=== PATIENT | female | born 1980 | race Hispanic/Latino ===

== ENCOUNTER 2020-11-29 06:34 | Inpatient (IN) | payer OTHER ==
[2020-11-29] MEDS ORDERED: EPINEPHrine RACEMIC 2.25% 0.5ML NEBU IH ONE ×2 (06:39→07:25)
[2020-11-29] MEDS ORDERED: dexAMETHasone 20 MG/5 ML VIAL IV ONE (07:01)
[2020-11-29] MEDS ORDERED: propofoL 200 MG/20 ML VIAL IV ONE (07:11)
[2020-11-29] MEDS ORDERED: diphenhydrAMINE 50 MG/ML VIAL IV ONE (07:24)
[2020-11-29] MEDS ORDERED: KETAMINE 500 MG/5 ML VIAL MDV IV ONE (07:24)
[2020-11-29] MEDS ORDERED: MAGNESIUM SULFATE 2 GM/50 ML BAG IV ONE (07:25)
[2020-11-29] MEDS ORDERED: SODIUM CHLORIDE 0.9% 1000 ML 1,000 ML IV ONE (07:50)
[2020-11-29] MEDS ORDERED: SODIUM CHLORIDE 0.9% 1000 ML 1,000 ML ONE (07:50)
[2020-11-29] MEDS ORDERED: EPINEPHrine/PF 1 MG/1 ML INJ SUB-Q ONE ×2 (07:57)
--- NOTE | 2020-11-29 07:57 | Emergency Department Report ---
ED Allergic Reaction HPI - General Chief complaint: Allergic Reaction Stated complaint: RESP DISTRESS Time Seen by Provider: 11/29/20 06:38 Source: patient Mode of arrival: Stretcher Limitations: No Limitations - History of Present Illness Initial Comments: 39-year-old female presents to ED with allergic reaction. Patient presents in respiratory distress. Patient apparently arrived by private vehicle. Patient has information in her phone stating that she history of allergic reactions to bee stings, tick bites, red meat, and heparin. It is also noted that she has had over "40+ intubations" and also has undergone tracheostomy, with reversal, for allergic reactions. ET tube of 6.5 or 6.0 will work. Patient has paradoxical vocal cord movement, severe tracheal stenosis, idiopathic hereditary angioedema and urticaria, and alpha gal syndrome. Notes in patient's phone state that IV Benadryl, ketamine, Decadron works for spasms and stridor. It states, "I AM VERY HARD TO PUT DOWN DUE TO ALL THE INTUBATION SO MORE IS BETTER I PROMISE." Patient reports she used her EpiPen prior to ED arrival. Patient is stridorous at this time. Patient is able to give information by writing it down. MD Complaint: allergic reaction -: This morning Exposure: unknown, food Symptoms: difficulty breathing Severity: severe Treatment Prior to Arrival: epinephrine Previous Allergy History: angioedema, intubation - Related Data Home Medications Medication Instructions Recorded Confirmed Last Taken Gabapentin 600 mg PO BID 09/24/16 09/24/16 09/22/16 22:00 ALPRAZolam [Xanax TAB] 1 mg PO PRN PRN 09/25/16 09/25/16 Unknown Ambien 10 mg PO HS 09/25/16 09/25/16 Unknown Doxepin 75 mg PO BID 09/25/16 09/25/16 Unknown Hydrochlorothiazide 25 mg PO DAILY 09/25/16 09/25/16 Unknown Montelukast [Singulair] 10 mg PO HS 09/25/16 09/25/16 Unknown Previous Rx's Medication Instructions Recorded Last Taken Type EPINEPHrine [Epipen 2-Sam] 0.3 mg IJ ONCE #1 auto.injct 03/12/16 09/14/16 Rx 0.3mg Allergies Allergy/AdvReac Type Severity Reaction Status Date / Time ciprofloxacin Allergy Unknown Verified 03/12/16 14:14 gelatin Allergy Unknown Verified 03/12/16 14:14 levofloxacin [From Levaquin] Allergy Unknown Verified 03/12/16 14:14 Pork/Porcine Containing Allergy Unknown Verified 03/12/16 14:14 Products ED Review of Systems ROS: Stated complaint: RESP DISTRESS Other details as noted in HPI Respiratory: shortness of breath, stridor ED Past Medical Hx - Past Medical History Hx Hypertension: Yes Hx Congestive Heart Failure: No Hx Diabetes: No Hx Headaches / Migraines: Yes Hx Asthma: Yes Hx COPD: No Additional medical history: Alphagal syndrome, intubation, trach - Surgical History Additional Surgical History: hysterectomy - Social History Smoking Status: Never Smoker - Medications Home Medications: Home Medications Medication Instructions Recorded Confirmed Last Taken Type EPINEPHrine [Epipen 2-Sam] 0.3 mg IJ ONCE #1 auto.injct 03/12/16 09/24/16 09/14/16 Rx 0.3mg Gabapentin 600 mg PO BID 09/24/16 09/24/16 09/22/16 22:00 History ALPRAZolam [Xanax TAB] 1 mg PO PRN PRN 09/25/16 09/25/16 Unknown History Ambien 10 mg PO HS 09/25/16 09/25/16 Unknown History Doxepin 75 mg PO BID 09/25/16 09/25/16 Unknown History Hydrochlorothiazide 25 mg PO DAILY 09/25/16 09/25/16 Unknown History Montelukast [Singulair] 10 mg PO HS 09/25/16 09/25/16 Unknown History ED Physical Exam - General Limitations: No Limitations General appearance: alert, anxious, in distress, obese - Head Head exam: Present: atraumatic, normocephalic - Eye Eye exam: Present: normal appearance, EOMI - ENT ENT exam: Present: mucous membranes moist, other (tongue appears normal, no swelling present; no facial swelling present) - Neck Neck exam: Present: normal inspection - Respiratory Respiratory exam: Present: respiratory distress, stridor - Cardiovascular Cardiovascular Exam: Present: normal rhythm, tachycardia - GI/Abdominal GI/Abdominal exam: Present: soft. Absent: distended, tenderness - Extremities Exam Extremities exam: Present: normal inspection - Neurological Exam Neurological exam: Present: alert, oriented X3 - Psychiatric Psychiatric exam: Present: normal affect, normal mood - Skin Skin exam: Present: warm, dry, intact, normal color. Absent: rash, urticaria ED Course Vital Signs 11/29/20 11/29/20 11/29/20 06:35 07:37 08:00 Pulse Rate 90 Respiratory Rate Blood Pressure 153/134 O2 Sat by Pulse 98 100 98 Oximetry 11/29/20 11/29/20 11/29/20 08:02 08:10 08:20 Pulse Rate 83 83 84 Respiratory 26 H 25 H 24 Rate Blood Pressure 100/40 O2 Sat by Pulse 99 98 97 Oximetry 11/29/20 11/29/20 11/29/20 08:30 08:50 09:00 Pulse Rate 82 85 83 Respiratory 22 18 21 Rate Blood Pressure 107/38 103/46 O2 Sat by Pulse 97 98 98 Oximetry 11/29/20 11/29/20 11/29/20 09:10 09:20 09:30 Pulse Rate 81 80 79 Respiratory 21 20 20 Rate Blood Pressure 103/46 103/48 107/49 O2 Sat by Pulse 98 98 99 Oximetry 11/29/20 11/29/20 11/29/20 09:40 09:50 10:00 Pulse Rate 79 79 Respiratory 20 20 Rate Blood Pressure 107/49 114/53 114/53 O2 Sat by Pulse 99 99 100 Oximetry 11/29/20 11/29/20 11/29/20 10:10 10:20 10:31 Pulse Rate 134 H 123 H Respiratory 23 31 H Rate Blood Pressure 107/49 197/128 227/71 O2 Sat by Pulse 54 L 92 93 Oximetry - Reevaluation(s) Reevaluation #1: 11/29/20 07:56 Upon presentation, patient was given additional subcutaneous epi. Anesthesia was called for assistance. Port-A-Cath was accessed and patient was given Benadryl, Decadron, mag sulfate. Racemic epi nebulizer was administered. Upon Dr. Muhammad's arrival (anesthesiologist), patient was given multiple doses of ketamine. Patient remained very anxious, so she was given Versed. She was ultimately also given Precedex, which calmed the patient adequately enough for intubation. Patient was intubated by Dr Muhammad with a 6.0 ET tube. No swelling or edema seen on Glidescope during intubation. Reevaluation #2: 11/29/20 09:[address] León, hospitalist. Patient will be admitted to Dr. Garcia. Request that consult to rail project engineer, Dr Estrada, be placed by la. Dr. León states he will call Dr. Estrada. ED Medical Decision Making - Lab Data Result diagrams: 11/29/20 07:48 11/29/20 07:48 - Radiology Data Radiology results: report reviewed, image reviewed - Medical Decision Making 39-year-old female presents to ED with allergic reaction with associated severe respiratory distress with stridor. Patient intubated by anesthesiologist here in ED. Labs are unremarkable. Chest x-ray shows adequate tube placement with no airspace or interstitial disease present. Patient currently on propofol drip. She will be admitted by hospitalist, Dr. Garcia, for further management. - Differential Diagnosis Allergic reaction, angioedema, tracheal stenosis, anxiety Critical Care Time: Yes Critical care time in (mins) excluding proc time.: 35 Critical care attestation.: If time is entered above; I have spent that time in minutes in the direct care of this critically ill patient, excluding procedure time. Critical Care Time: 35 min ED Disposition Clinical Impression: Acute respiratory failure, Allergic reaction Disposition: ADMITTED INPATIENT Is pt being admited?: Yes Condition: Stable Time of Disposition: 09:22
[2020-11-29] MEDS ORDERED: MIDAZOLAM 5 MG/5 ML INJ MDV IV NR (08:00)
--- NOTE | 2020-11-29 08:16 | XRay Report ---
CHEST 1 VIEW INDICATION: post intubation; allergic reaction. COMPARISON: 09/26/2016 FINDINGS: Support devices: Endotracheal tube is in adequate position terminating 3 cm superior to the evelyne. R ight IJ [id number]-Iozc is unchanged terminating at the cavoatrial junction. Heart: Within normal limits. Lungs/Pleura: No acute air space or interstitial disease. Additional findings: None. IMPRESSION: No acute findings. Adequate endotracheal tube placement. Signer Name: Bird Cool Jr, MD Signed: 11/29/2020 8:12 AM Workstation Name: [id number]
[2020-11-29 08:48] LABS: Basophils # (Auto) 0.1 K/mm3 (0.0-0.1); Basophils % (Auto) 0.7 % (0.0-1.8); Eosinophils # (Auto) 0.4 K/mm3 (0.0-0.4); Eosinophils % (Auto) 3.7 % (0.0-4.3); Hematocrit 37.7 % (30.3-42.9); Hemoglobin 12.4 gm/dl (10.1-14.3); Lymphocytes # (Auto) 2.5 K/mm3 (1.2-5.4); Lymphocytes % (Auto) 21.9 % (13.4-35.0); Mean Corpuscular HGB Conc 33 % (30-34); Mean Corpuscular Volume 83 fl (79-97); Monocytes # (Auto) 0.5 K/mm3 (0.0-0.8); Monocytes % (Auto) 4.1 % (0.0-7.3); Platelet Count 190 K/mm3 (140-440); Red Blood Count 4.53 M/mm3 (3.65-5.03)
[2020-11-29 09:11] LABS: BUN/Creatinine Ratio 13; Blood Urea Nitrogen 10 mg/dL (7-17); Calcium 8.7 mg/dL (8.4-10.2); Hemolysis Index 6
[2020-11-29 09:16] LABS: Alanine Aminotransferase 33 units/L (7-56); Albumin 3.7 g/dL (3.9-5)
[2020-11-29 09:20] LABS: Bilirubin,Direct < 0.2 mg/dL (0-0.2)
--- NOTE | 2020-11-29 09:58 | History and Physical Report ---
History of Present Illness Date of examination: 11/29/20 Date of admission: 11/29/2020 Chief complaint: Allergic reaction/acute respiratory failure History of present illness: When I came to evaluate the patient patient is already intubated on ventilatory support and sedated No family member at the bedside, unable to obtain history, details obtained from the ER note 39-year-old female presents to ED with allergic reaction. Patient presents in respiratory distress. Patient has information in her phone stating that she history of allergic reactions to bee stings, takes, red meat, and heparin. Her father notes that she has had over 40+ intubations and also has undergone tracheostomy, with reversal, for allergic reactions. And father states that ET tube of 6.5 or 6.0 will work. 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 IV Benadryl, ketamine, Decadron works for spasms and stridor. Patient reports she used her EpiPen prior to ED arrival. Patient is stridorous at this time. Patient is able to give information by writing it down. Patient was known to be in hypoxic respiratory failure with stridor, and was promptly intubated and placed on ventilatory support Patient had mild hypotension, medications adjusted, placed on brief Trendelenburg position By the time of my evaluation patient is orally intubated on ventilatory support Mild hypotension No other history available x Hypertension: Yes Hx Congestive Heart Failure: No Hx Diabetes: No Hx Headaches / Migraines: Yes Hx Asthma: Yes Hx COPD: No Additional medical history: Alphagal syndrome, intubation, trach - Surgical History Additional Surgical History: hysterectomy Past History Past Medical History: hypertension, migraines, other (Anxiety disorder, peripheral neuropathy, alpha gal syndrome, hereditary angioedema) Past Surgical History: hysterectomy, Other (History of tracheostomy) Social history: denies: smoking, alcohol abuse, prescription drug abuse Family history: no significant family history Medications and Allergies Allergies Allergy/AdvReac Type Severity Reaction Status Date / Time ciprofloxacin Allergy Unknown Verified 03/12/16 14:14 gelatin Allergy Unknown Verified 03/12/16 14:14 levofloxacin [From Levaquin] Allergy Unknown Verified 03/12/16 14:14 Pork/Porcine Containing Allergy Unknown Verified 03/12/16 14:14 Products Home Medications Medication Instructions Recorded Confirmed Last Taken Type EPINEPHrine [Epipen 2-Sam] 0.3 mg IJ ONCE #1 auto.injct 03/12/16 09/24/16 09/14/16 Rx 0.3mg Gabapentin 600 mg PO BID 09/24/16 09/24/16 09/22/16 22:00 History ALPRAZolam [Xanax TAB] 1 mg PO PRN PRN 09/25/16 09/25/16 Unknown History Ambien 10 mg PO HS 09/25/16 09/25/16 Unknown History Doxepin 75 mg PO BID 09/25/16 09/25/16 Unknown History Hydrochlorothiazide 25 mg PO DAILY 09/25/16 09/25/16 Unknown History Montelukast [Singulair] 10 mg PO HS 09/25/16 09/25/16 Unknown History Active Meds: Active Medications Dexmedetomidine HCl 200 mcg/ (Sodium Chloride) 50 mls @ 0 mls/hr IV TITRATE KRYSTAL; Protocol Propofol (Diprivan 10 Mg/Ml) 1,000 mg in 100 mls @ 0 mls/hr IV TITR KRYSTAL; Protocol Midazolam HCl (Midazolam 5 Mg/5 Ml Inj Mdv) 5 mg IV ONCE NR Senna/Docusate Sodium (Sennosides/Docusate Sodium 8.6/50 Mg Tab) 1 tab FEEDTUBE BID KRYSTAL Review of Systems ROS unobtainable: due to endotracheal tube Exam - Constitutional Vitals: Temp Pulse Resp BP Pulse Ox 90 153/134 100 11/29/20 07:37 11/29/20 07:37 11/29/20 07:37 General appearance: Present: obese (Orbitally obese) - EENT Eyes: Present: PERRL - Neck Neck: Present: supple (EGD ET tube in place), normal ROM, other - Respiratory Respiratory effort: normal, labored Respiratory: bilateral: rales, wheezing, negative: rhonchi - Cardiovascular Rhythm: regular Heart Sounds: Present: S1 & S2 Details: S1-S2 regular No murmur - Extremities Extremities: no ischemia, No edema Extremity abnormal: edema - Abdominal General gastrointestinal: Present: soft, non-tender, non-distended - Integumentary Integumentary: Present: clear, warm - Musculoskeletal Musculoskeletal: other (Intubated on vent) - Psychiatric Psychiatric: other (Intubated on vent) - Neurologic Neurologic: other (Intubated on vent) Results - Labs CBC & Chem 7: 0831/21 07:48 11/29/20 07:48 Labs: Abnormal lab results 11/29/20 11/29/20 11/29/20 Range/Units 07:48 07:48 07:48 WBC 11.3 H (4.5-11.0) K/mm3 RDW 18.0 H (13.2-15.2) % Seg Neutrophils # 7.9 H (1.8-7.7) K/mm3 Sodium 135 L (137-145) mmol/L Glucose 204 H (65-100) mg/dL Albumin 3.7 L (3.9-5) g/dL Assessment and Plan - Patient Problems (1) Acute respiratory failure with hypoxemia Current Visit: No Status: Acute Plan to address problem: Patient is intubated on ventilatory support Pulmonary critical consulted, Supportive care Restraint for safety (2) Hereditary angioedema Current Visit: Yes Status: Chronic Plan to address problem: Patient had multiple intubations in the past Patient has multiple allergies as mentioned above Patient is intubated on ventilatory support Wean as tolerated and extubate Patient has EpiPen (3) Bronchial asthma Current Visit: Yes Status: Acute Plan to address problem: Patient is intubated on ventilatory support Nebulizers, IV steroids and supportive care (4) Allergic reaction Current Visit: Yes Status: Acute Plan to address problem: High-dose steroids, antihistamines, Pepcid avoid the allergens Patient has EpiPen, will follow allergy sign board erector upon discharge (5) Peripheral neuropathy Current Visit: Yes Status: Acute Plan to address problem: On gabapentin Resume gabapentin and supportive care (6) Morbid obesity with BMI of 45.0-49.9, adult Current Visit: Yes Status: Chronic Plan to address problem: Patient needs dietary modification exercise as tolerated. Reduction when medically stable (7) DVT prophylaxis Current Visit: No Status: Acute Plan to address problem: Subcu heparin (8) Discharge planning issues Current Visit: Yes Status: Acute Plan to address problem: Per case management We will closely monitor the patient and adjust management as needed Plan of care reviewed with the patient's nurse Critical care time 65 minutes The high probability of a clinically significant, sudden or life threatening deterioration of the [heme/pulm] system(s) required my full and direct attention, intervention and personal management. The aggregate critical care time was [30] minutes. This time is in addition to time spent performing reported procedures but includes the following: [x] Data Review and interpretation [x] Patient assessment and monitoring of vital signs [x] Documentation [x] Medication orders and management (9) Full code status Current Visit: Yes Status: Acute
[2020-11-29] MEDS ORDERED: fentaNYL 100 MCG/2 ML INJ IV PRN ×2 (10:22→12:00)
[2020-11-29] MEDS: fentaNYL DRIP Premix 2,000 MCG/100 ML BAG IV SCH ×4 (11:50→23:26)
[2020-11-29] MEDS ORDERED: fentaNYL DRIP Premix 2,000 MCG/100 ML BAG IV SCH (12:00)
[2020-11-29] MEDS ORDERED: diphenhydrAMINE 50 MG/ML VIAL IV PRN (12:30)
[2020-11-29] MEDS ORDERED: ALPRAZolam 1 MG TAB PO PRN (13:00)
[2020-11-29] MEDS: MIDAZOLAM 100 MG in SODIUM CHLORIDE 0.9% 80 ML IV SCH (14:00)
[2020-11-29] MEDS ORDERED: ALBUTEROL 2.5 MG/3 ML NEBU IH PRN (15:22)
[2020-11-29] MEDS ORDERED: SODIUM BICARBONATE 325 MG TAB FEEDTUBE PRN (15:23)
[2020-11-29] MEDS ORDERED: SIMPLE SYRUP 15 ML FEEDTUBE PRN ×2 (15:23)
[2020-11-29] MEDS ORDERED: LIPASE 10,500/PROTEASE 25,000/AMYLASE 43,750 (UNITS) DR CAP FEEDTUBE PRN (15:23)
[2020-11-29] MEDS: LORazepam 2 MG/ML VIAL IV PRN (15:50)
--- NOTE | 2020-11-29 15:52 | Progress Note ---
Subjective Date of service: 11/29/20 Principal diagnosis: Acute Hypoxemic Respiratory Failure; Angioedema Interval history: PULMONARY/CCM CONSULT NOTE (Full dictation # [id number]) Please see dictated notes for full details Objective Vital Signs - 12hr 11/29/20 11/29/20 11/29/20 06:35 07:37 08:00 Temperature 98.8 F Pulse Rate 90 Respiratory Rate Blood Pressure 153/134 O2 Sat by Pulse 98 100 98 Oximetry 11/29/20 11/29/20 11/29/20 08:02 08:10 08:20 Temperature Pulse Rate 83 83 84 Respiratory 26 H 25 H 24 Rate Blood Pressure 100/40 O2 Sat by Pulse 99 98 97 Oximetry 11/29/20 11/29/20 11/29/20 08:30 08:50 09:00 Temperature Pulse Rate 82 85 83 Respiratory 22 18 21 Rate Blood Pressure 107/38 103/46 O2 Sat by Pulse 97 98 98 Oximetry 11/29/20 11/29/20 11/29/20 09:10 09:20 09:30 Temperature Pulse Rate 81 80 79 Respiratory 21 20 20 Rate Blood Pressure 103/46 103/48 107/49 O2 Sat by Pulse 98 98 99 Oximetry 11/29/20 11/29/20 11/29/20 09:40 09:50 10:00 Temperature Pulse Rate 79 79 Respiratory 20 20 Rate Blood Pressure 107/49 114/53 114/53 O2 Sat by Pulse 99 99 100 Oximetry 11/29/20 11/29/20 11/29/20 10:10 10:20 10:31 Temperature Pulse Rate 134 H 123 H Respiratory 23 31 H Rate Blood Pressure 107/49 197/128 227/71 O2 Sat by Pulse 54 L 92 93 Oximetry 11/29/20 11/29/20 11/29/20 10:46 11:15 11:30 Temperature Pulse Rate 106 H 94 H 91 H Respiratory 29 H 26 H 26 H Rate Blood Pressure 113/58 85/27 84/34 O2 Sat by Pulse 94 97 98 Oximetry 11/29/20 11/29/20 11/29/20 11:46 12:00 12:16 Temperature Pulse Rate 92 H 86 71 Respiratory 25 H 24 24 Rate Blood Pressure 85/24 74/24 77/26 O2 Sat by Pulse 99 97 97 Oximetry 11/29/20 11/29/20 11/29/20 12:30 12:46 13:00 Temperature Pulse Rate 80 83 86 Respiratory 25 H 23 24 Rate Blood Pressure 93/42 95/32 100/35 O2 Sat by Pulse 96 99 100 Oximetry 11/29/20 11/29/20 11/29/20 13:16 13:30 13:46 Temperature Pulse Rate 88 89 94 H Respiratory 13 12 13 Rate Blood Pressure 98/40 100/43 107/54 O2 Sat by Pulse 98 99 99 Oximetry 11/29/20 11/29/20 11/29/20 14:00 14:16 14:30 Temperature Pulse Rate 93 H 95 H 96 H Respiratory 14 12 10 L Rate Blood Pressure 118/65 111/62 132/57 O2 Sat by Pulse 100 100 100 Oximetry 11/29/20 11/29/20 11/29/20 14:46 15:00 15:16 Temperature Pulse Rate 98 H 102 H 100 H Respiratory 12 13 14 Rate Blood Pressure 130/67 116/65 102/67 O2 Sat by Pulse 100 99 99 Oximetry CBC and BMP: 11/29/20 07:48 11/29/20 07:48 ABG, PT/INR, D-dimer: ABG ABG pH 7.318 (7.320-7.450) L 11/29/20 11:37 POC ABG pCO2 45.5 mmHg (32.0-48.0) 11/29/20 11:37 POC ABG pO2 76.1 mmHg (83-108) L 11/29/20 11:37 POC ABG HCO3 22.8 11/29/20 11:37 Abnormal lab findings: Abnormal Labs 11/29/20 11/29/20 11/29/20 07:48 07:48 07:48 WBC 11.3 H RDW 18.0 H Seg Neutrophils # 7.9 H ABG pH POC ABG pO2 ABG Hemoglobin ABG Oxyhemoglobin Carboxyhemoglobin Sodium 135 L Glucose 204 H Albumin 3.7 L 11/29/20 11:37 WBC RDW Seg Neutrophils # ABG pH 7.318 L POC ABG pO2 76.1 L ABG Hemoglobin 11.96 L ABG Oxyhemoglobin 92.4 L Carboxyhemoglobin 2.5 H Sodium Glucose Albumin
[2020-11-29] MEDS: GABAPENTIN 300 MG CAP PO SCH ×2 (16:20→22:29)
[2020-11-29] MEDS: SENNOSIDES/DOCUSATE SODIUM 8.6/50 MG TAB FEEDTUBE SCH ×2 (18:18→22:29)
[2020-11-29] MEDS: dexAMETHasone 4 MG/ML VIAL IV SCH (18:29)
[2020-11-29] MEDS ORDERED: ENOXAPARIN 40 MG/0.4 ML INJ SUB-Q SCH (22:00)
[2020-11-29] MEDS ORDERED: NON-FORMULARY EACH (Gabapentin 600 MG) PO SCH (22:00)
[2020-11-29] MEDS: MONTELUKAST 10 MG TAB PO SCH (22:29)
[2020-11-30] MEDS: FONDAPARINUX 2.5 MG/0.5 ML INJ SUB-Q SCH ×2 (00:04→22:31)
[2020-11-30] MEDS: dexAMETHasone 4 MG/ML VIAL IV SCH ×2 (00:12→06:35)
[2020-11-30] MEDS ORDERED: SUCCINYLCHOLINE CHLORIDE 200 MG/10 ML INJ MDV ONE (03:26)
[2020-11-30] MEDS ORDERED: MIDAZOLAM 5 MG/5 ML INJ MDV IV ONE (03:26)
[2020-11-30] MEDS: fentaNYL DRIP Premix 2,000 MCG/100 ML BAG IV SCH ×5 (05:12→20:14)
[2020-11-30] MEDS: MIDAZOLAM 100 MG in SODIUM CHLORIDE 0.9% 80 ML IV SCH ×2 (06:58→22:33)
[2020-11-30] MEDS: IPRATROPIUM/ALBUTEROL SULFATE 3 ML AMPUL.NEB IH SCH ×5 (08:10→20:38)
[2020-11-30] MEDS: LORazepam 2 MG/ML VIAL IV PRN (08:30)
[2020-11-30] MEDS ORDERED: SIMPLE SYRUP 15 ML FEEDTUBE PRN ×2 (09:58)
[2020-11-30] MEDS ORDERED: SODIUM BICARBONATE 325 MG TAB FEEDTUBE PRN (09:58)
[2020-11-30] MEDS ORDERED: LIPASE 10,500/PROTEASE 25,000/AMYLASE 43,750 (UNITS) DR CAP FEEDTUBE PRN (09:58)
--- NOTE | 2020-11-30 10:32 | XRay Report ---
ABDOMEN 1 VIEW 11/30/2020 9:22 AM INDICATION / CLINICAL INFORMATION: Tube feeding placement. COMPARISON: None available. FINDINGS: TUBES / LINES: None. BOWEL GAS PATTERN: No significant abnormality. FREE AIR / EXTRALUMINAL GAS: None. ADDITIONAL FINDINGS: No significant additional findings. IMPRESSION: 1. No feeding tube is seen on this exam. Signer Name: Edgar Lopez MD Signed: 11/30/2020 10:27 AM Workstation Name: [id number]
--- NOTE | 2020-11-30 13:29 | Progress Note ---
Assessment and Plan Acute hypoxemic respiratory failure Angioedema Morbid obesity Mild leukocytosis Hypertension. H/O alpha-gal syndrome - started benadryl, pepcid & Solumedrol - add propofol for better sedation - continue Daily SAT and SBT assessment as tolerated - continue to wean supplemental oxygen for target O2 sat's > 90% acutely - VAP bundle addressed - continue lung protective strategies - continue bronchodilators with pulmonary hygiene per RT - wean per pulmonary driven protocols otherwise - continue accuchecks with glycemic control per SSI (While critically ill target blood glucose of 140-180 mg/dL; avoid hypoglycemia) - sedation prn for target RASS -1 to -2 - avoid nephrotoxins, renally dose all medications - continue to avoid benzodiazepine's, reduce the possibility of delirium - AB's per ID rec's - prn analgesia per CPOT score - Maintenance of sleep-wake cycle, avoid delirium - continue enteral nutritional support at goal rate as tolerated - G.I. & VTE prophylaxis - PT/OT/ROM exercises - continue mobility protocols for pressure ulcer prophylaxis - Monitor hemodynamics closely - continue other care per attending / other consultants - discharge planning ongoing concurrently .... Re-evaluate in am & prn CONDITION: CRITICAL PROGNOSIS: GUARDED CODE STATUS: FULL CODE The high probability of a clinically significant, sudden or life-threatening deterioration of the [respiratory, cardiovascular & immunologic] system(s) required my full and direct attention, intervention and personal management. The aggregate critical care time was [33] minutes without overlap. Time includes spent on; [x] Data Review and interpretation [x] Patient assessment and monitoring of vital signs [x] Documentation [x] Medication orders and management Subjective Date of service: 11/30/20 Principal diagnosis: Acute Hypoxemic Respiratory Failure; Angioedema Interval history: Patient is seen today for: Acute hypoxemic respiratory failure; Angioedema; Morbid obesity; leukocytosis; HTN; H/O alpha-gal syndrome Seen and examined at bedside; 24hour events reviewed; nursing and respiratory care staff consulted; no adverse overnight events reported to me; resting in bed; anxious and agitated; denies pain; on Fentanyl and Versed max doses but historically difficult to sedate Objective Vital Signs - 12hr 11/30/20 11/30/20 11/30/20 01:30 01:46 02:00 Pulse Rate 71 69 70 Pulse Rate [ Throughout] Respiratory 25 H 24 24 Rate Respiratory Rate [ Throughout] Blood Pressure 104/48 96/50 96/50 O2 Sat by Pulse 100 100 100 Oximetry 11/30/20 11/30/20 11/30/20 02:16 02:30 02:46 Pulse Rate 66 66 64 Pulse Rate [ Throughout] Respiratory 24 24 24 Rate Respiratory Rate [ Throughout] Blood Pressure 98/47 98/43 94/42 O2 Sat by Pulse 100 100 100 Oximetry 11/30/20 11/30/20 11/30/20 03:00 03:16 03:30 Pulse Rate 63 64 65 Pulse Rate [ Throughout] Respiratory 24 24 24 Rate Respiratory Rate [ Throughout] Blood Pressure 95/45 98/45 95/45 O2 Sat by Pulse 100 100 100 Oximetry 11/30/20 11/30/20 11/30/20 03:46 04:00 04:16 Pulse Rate 68 66 72 Pulse Rate [ Throughout] Respiratory 24 24 24 Rate Respiratory Rate [ Throughout] Blood Pressure 98/47 98/47 95/46 O2 Sat by Pulse 100 100 100 Oximetry 11/30/20 11/30/20 11/30/20 04:25 04:30 04:46 Pulse Rate 68 68 70 Pulse Rate [ Throughout] Respiratory 24 24 Rate Respiratory Rate [ Throughout] Blood Pressure 95/46 94/59 106/50 O2 Sat by Pulse 100 100 100 Oximetry 11/30/20 11/30/20 11/30/20 05:00 05:16 05:30 Pulse Rate 69 69 67 Pulse Rate [ Throughout] Respiratory 24 22 24 Rate Respiratory Rate [ Throughout] Blood Pressure 105/51 109/47 100/46 O2 Sat by Pulse 100 100 100 Oximetry 11/30/20 11/30/20 11/30/20 05:46 06:00 06:16 Pulse Rate 70 67 66 Pulse Rate [ Throughout] Respiratory 24 24 24 Rate Respiratory Rate [ Throughout] Blood Pressure 99/48 98/47 99/48 O2 Sat by Pulse 100 100 100 Oximetry 11/30/20 11/30/20 11/30/20 06:30 06:46 07:00 Pulse Rate 67 65 67 Pulse Rate [ Throughout] Respiratory 24 24 24 Rate Respiratory Rate [ Throughout] Blood Pressure 97/46 94/47 98/49 O2 Sat by Pulse 100 99 100 Oximetry 11/30/20 11/30/20 11/30/20 07:16 07:30 07:46 Pulse Rate 66 66 66 Pulse Rate [ Throughout] Respiratory 24 24 24 Rate Respiratory Rate [ Throughout] Blood Pressure 96/47 101/48 96/46 O2 Sat by Pulse 99 99 99 Oximetry 11/30/20 11/30/20 11/30/20 08:00 08:35 08:46 Pulse Rate 65 86 79 Pulse Rate [ Throughout] Respiratory 24 20 Rate Respiratory Rate [ Throughout] Blood Pressure 99/46 111/54 O2 Sat by Pulse 99 96 96 Oximetry 11/30/20 11/30/20 11/30/20 09:00 09:09 11:20 Pulse Rate 76 67 Pulse Rate [ 80 Throughout] Respiratory 20 Rate Respiratory 20 Rate [ Throughout] Blood Pressure 111/48 122/64 O2 Sat by Pulse 96 96 Oximetry Constitutional: appears uncomfortable, other (kianna g obese female with mildly increased respiratory effort at rest) Eyes: non-icteric ENT: oropharynx moist, other (ETT 23 cm JOSELYN) Neck: supple, no lymphadenopathy, no JVD, other (large circumference) Effort: mildly labored Ascultation: Bilateral: diminished breath sounds, rhonchi Percussion: Bilateral: not dull Cardiovascular: regular rate and rhythm Gastrointestinal: normoactive bowel sounds, soft, non-tender, non-distended Integumentary: normal Extremities: no cyanosis, no edema, pink and warm, pulses normal Neurologic: non-focal exam, pupils equal and round, CN II-XII normal, motor strength normal and Psychiatric: anxious CBC and BMP: 11/29/20 07:48 11/29/20 07:48 ABG, PT/INR, D-dimer: ABG ABG pH 7.348 (7.320-7.450) 11/30/20 04:27 POC ABG pCO2 42.6 mmHg (32.0-48.0) 11/30/20 04:27 POC ABG pO2 196.4 mmHg (83-108) H 11/30/20 04:27 POC ABG HCO3 22.9 11/30/20 04:27 ABG O2 Saturation 99.7 (0-100) 11/30/20 04:27 Abnormal lab findings: Abnormal Labs 11/29/20 11/29/20 11/29/20 07:48 07:48 07:48 WBC 11.3 H RDW 18.0 H Seg Neutrophils # 7.9 H ABG pH POC ABG pO2 ABG Hemoglobin ABG Oxyhemoglobin ABG Sodium ABG Potassium ABG Glucose Carboxyhemoglobin Sodium 135 L Glucose 204 H POC Glucose Albumin 3.7 L Arterial Blood Glucose 11/29/20 11/30/20 11/30/20 11:37 04:27 11:22 WBC RDW Seg Neutrophils # ABG pH 7.318 L POC ABG pO2 76.1 L 196.4 H ABG Hemoglobin 11.96 L ABG Oxyhemoglobin 92.4 L 98.5 H ABG Sodium 133.7 L ABG Potassium 5.0 H ABG Glucose 171 H Carboxyhemoglobin 2.5 H Sodium Glucose POC Glucose 157 H Albumin Arterial Blood Glucose 171 H Chest x-ray: pending Allied health notes reviewed: nursing
--- NOTE | 2020-11-30 13:50 | XRay Report ---
XR abdomen 1V ap INDICATION / CLINICAL INFORMATION: ngt placement verification COMPARISON: Same-day radiograph. FINDINGS/IMPRESSION: Nasogastric tube tip and side-port project within the stomach. Signer Name: Dinesh Foster MD Signed: 11/30/2020 1:46 PM Workstation Name: [id number]
[2020-11-30 14:58] LABS: Creatine Kinase MB 14.6 ng/mL (0.0-4.0)
[2020-11-30] MEDS: FAMOTIDINE 20 MG/2 ML INJ IV SCH ×2 (15:00→22:32)
[2020-11-30] MEDS: methylPREDNISolone Sod Succinate 40 MG/1 ML INJ IV SCH ×2 (15:30→15:34)
[2020-11-30] MEDS: GABAPENTIN 300 MG CAP PO SCH (15:30)
[2020-11-30] MEDS: diphenhydrAMINE 50 MG/ML VIAL IV SCH ×2 (15:30→22:32)
[2020-11-30] MEDS: SENNOSIDES/DOCUSATE SODIUM 8.6/50 MG TAB FEEDTUBE SCH ×2 (17:52→22:33)
--- NOTE | 2020-11-30 18:59 | Progress Note ---
Assessment and Plan Assessment and plan: HPI: 39-year-old female presents to ED with allergic reaction. Patient presents in respiratory distress. Patient has information in her phone stating that she history of allergic reactions to bee stings, takes, red meat, and heparin. Her father notes that she has had over 40+ intubations and also has undergone tracheostomy, with reversal, for allergic reactions. And father states that ET tube of 6.5 or 6.0 will work. 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 IV Benadryl, ketamine, Decadron works for spasms and stridor. Patient reports she used her EpiPen prior to ED arrival. Patient is stridorous at this time. Patient is able to give information by writing it down. Patient was known to be in hypoxic respiratory failure with stridor, and was promptly intubated and placed on ventilatory support (1) Acute respiratory failure with hypoxemia Current Visit: No Status: Acute Plan to address problem: Patient is intubated on ventilatory support due to severe angioedema Pulmonary critical consulted, Supportive care Restraint for safety (2) Hereditary angioedema , history of fall forgal syndrome Current Visit: Yes Status: Chronic Plan to address problem: Recurrence of severe angioedema the trigger is unknown to the patient. Patient had multiple intubations in the past Patient has multiple allergies as mentioned above Patient is intubated on ventilatory support Wean as tolerated and extubate Patient has EpiPen (3) Bronchial asthma with exacerbation Current Visit: Yes Status: Acute Plan to address problem: Patient is intubated on ventilatory support Nebulizers, IV steroids and supportive care (4) Allergic reaction Current Visit: Yes Status: Acute Plan to address problem: High-dose steroids, antihistamines, Pepcid avoid the allergens Patient has EpiPen, will follow allergy health care coach upon discharge (5) Peripheral neuropathy Current Visit: Yes Status: Acute Plan to address problem: On gabapentin Resume gabapentin and supportive care (6) Morbid obesity with BMI of 45.0-49.9, adult Current Visit: Yes Status: Chronic Plan to address problem: Patient needs dietary modification exercise as tolerated. Reduction when medically stable (7) history of hypertension (6) DVT prophylaxis Current Visit: No Status: Acute Plan to address problem: Subcu heparin 11/30: Patient is on vent but awake and communicative. She is alert but anxious. Patient does not know what triggered current recurrence of angioedema. Referred to 35%. Hemodynamically stable. Discussed with nursing staff and the patient, she communicates with writing. History Interval history: Patient is on vent but awake and communicative. She is alert but anxious. Patient does not know what triggered current recurrence of angioedema. Referred to 35%. Hemodynamically stable. Hospitalist Physical - Constitutional Vitals: Temp Pulse Resp BP Pulse Ox 98.1 F 71 20 154/68 100 11/30/20 16:00 11/30/20 18:20 11/30/20 18:20 11/30/20 18:20 11/30/20 18:20 General appearance: Present: no acute distress, obese (Orbitally obese) - EENT Eyes: Present: PERRL, EOM intact ENT: other (Has lower facial and submandibular edema) - Neck Neck: Present: supple, other (ETT in place). Absent: masses or JVD - Respiratory Respiratory effort: other (On vent) Respiratory: bilateral: CTA - Cardiovascular Rhythm: regular - Extremities Extremity abnormal: other (Trace pretibial edema) Peripheral Pulses: within normal limits - Abdominal General gastrointestinal: soft, tender, normal bowel sounds - Integumentary Integumentary: Absent: rash - Psychiatric Psychiatric: other (With anxious) - Neurologic Neurologic: moves all extremities HEART Score - HEART Score Troponin: Troponin T < 0.010 ng/mL (0.00-0.029) 11/30/20 14:12 Results - Labs CBC & Chem 7: 11/29/20 07:48 11/29/20 07:48 Labs: Laboratory Last Values WBC 11.3 K/mm3 (4.5-11.0) H 11/29/20 07:48 RBC 4.53 M/mm3 (3.65-5.03) 11/29/20 07:48 Hgb 12.4 gm/dl (10.1-14.3) 11/29/20 07:48 Hct 37.7 % (30.3-42.9) 11/29/20 07:48 MCV 83 fl (79-97) 11/29/20 07:48 MCH 28 pg (28-32) 11/29/20 07:48 MCHC 33 % (30-34) 11/29/20 07:48 RDW 18.0 % (13.2-15.2) H 11/29/20 07:48 Plt Count 190 K/mm3 (140-440) 11/29/20 07:48 Lymph % (Auto) 21.9 % (13.4-35.0) 11/29/20 07:48 Adams % (Auto) 4.1 % (0.0-7.3) 11/29/20 07:48 Eos % (Auto) 3.7 % (0.0-4.3) 11/29/20 07:48 Baso % (Auto) 0.7 % (0.0-1.8) 11/29/20 07:48 Lymph # (Auto) 2.5 K/mm3 (1.2-5.4) 11/29/20 07:48 Adams # (Auto) 0.5 K/mm3 (0.0-0.8) 11/29/20 07:48 Eos # (Auto) 0.4 K/mm3 (0.0-0.4) 11/29/20 07:48 Baso # (Auto) 0.1 K/mm3 (0.0-0.1) 11/29/20 07:48 Seg Neutrophils % 69.6 % (40.0-70.0) 11/29/20 07:48 Seg Neutrophils # 7.9 K/mm3 (1.8-7.7) H 11/29/20 07:48 ABG pH 7.348 (7.320-7.450) 11/30/20 04:27 POC ABG pCO2 42.6 mmHg (32.0-48.0) 11/30/20 04:27 POC ABG pO2 196.4 mmHg (83-108) H 11/30/20 04:27 POC ABG HCO3 22.9 11/30/20 04:27 ABG O2 Saturation 99.7 (0-100) 11/30/20 04:27 POC ABG Base Excess -2.7 11/30/20 04:27 ABG Hemoglobin 12.3 (12.0-17.5) 11/30/20 04:27 ABG Oxyhemoglobin 98.5 (94-98) H 11/30/20 04:27 ABG Methemoglobin 0.3 (0.0-1.5) 11/30/20 04:27 ABG Sodium 133.7 mmol/L (136.0-145.0) L 11/30/20 04:27 ABG Potassium 5.0 mmol/L (3.40-4.50) H 11/30/20 04:27 ABG Chloride 104.0 mmol/L (98-107) 11/30/20 04:27 ABG Glucose 171 mg/dL (65-95) H 11/30/20 04:27 Carboxyhemoglobin 0.9 (0.5-1.5) 11/30/20 04:27 FiO2 % 90.0 11/30/20 04:27 Sodium 135 mmol/L (137-145) L 11/29/20 07:48 Potassium 4.3 mmol/L (3.6-5.0) 11/29/20 07:48 Chloride 101.9 mmol/L (98-107) 11/29/20 07:48 Carbon Dioxide 24 mmol/L (22-30) 11/29/20 07:48 Anion Gap 13 mmol/L 11/29/20 07:48 BUN 10 mg/dL (7-17) 11/29/20 07:48 Creatinine 0.8 mg/dL (0.6-1.2) 11/29/20 07:48 Estimated GFR > 60 ml/min 11/29/20 07:48 BUN/Creatinine Ratio 13 % 11/29/20 07:48 Glucose 204 mg/dL (65-100) H 11/29/20 07:48 POC Glucose 135 mg/dL (70-105) H 11/30/20 17:19 Calcium 8.7 mg/dL (8.4-10.2) 11/29/20 07:48 Total Bilirubin 0.20 mg/dL (0.1-1.2) 11/29/20 07:48 Direct Bilirubin < 0.2 mg/dL (0-0.2) 11/29/20 07:48 Indirect Bilirubin 0.0 mg/dL 11/29/20 07:48 AST 18 units/L (5-40) 11/29/20 07:48 ALT 33 units/L (7-56) 11/29/20 07:48 Alkaline Phosphatase 101 units/L (35-129) 11/29/20 07:48 Total Creatine Kinase 1132 units/L (30-135) H 11/30/20 14:12 CK-MB (CK-2) 14.6 ng/mL (0.0-4.0) H 11/30/20 14:12 CK-MB (CK-2) Rel Index 1.2 (0-4) 11/30/20 14:12 Troponin T < 0.010 ng/mL (0.00-0.029) 11/30/20 14:12 Total Protein 6.6 g/dL (6.3-8.2) 11/29/20 07:48 Albumin 3.7 g/dL (3.9-5) L 11/29/20 07:48 Albumin/Globulin Ratio 1.3 % 11/29/20 07:48 HCG, Qual Negative (Negative) 11/29/20 07:48 Arterial Blood Glucose 171 mg/dL (65-95) H 11/30/20 04:27 Arterial Blood Ionized Calcium 4.8 mg/dL (4.6-5.3) 11/30/20 04:27 Dash/IV: Voiding Method Indwelling Catheter Active Medications - Current Medications Current Medications: Generic Name Dose Route Start Last Admin Trade Name Freq PRN Reason Stop Dose Admin Albuterol 2.5 mg 11/29/20 15:22 Albuterol 2.5 Mg/3 Ml Nebu IH Q4HRT PRN Shortness Of Breath Albuterol/Ipratropium 1 ampul 11/29/20 20:00 11/30/20 14:37 Ipratropium/Albuterol Sulfate 3 Ml Ampul.Neb IH 1 ampul Q6HRT KRYSTAL Administration Alprazolam 1 mg 11/29/20 13:00 Alprazolam 1 Mg Tab PO Q6H PRN Anxiety Lipase/Protease/Amylase 1 each 11/29/20 15:23 Lipase 10,500/Protease 25,000/Amylase 43,750 (Units) Dr Ariza FEEDTUBE PRN PRN For Clogged Feeding Tube Diphenhydramine HCl 25 mg 11/30/20 15:00 11/30/20 15:30 Diphenhydramine 50 Mg/Ml Vial IV 25 mg Q6H KRYSTAL Administration Famotidine 20 mg 11/30/20 15:00 11/30/20 15:00 Famotidine 20 Mg/2 Ml Inj IV 20 mg BID KRYSTAL Administration Fentanyl 50 mcg 11/29/20 10:22 Fentanyl 100 Mcg/2 Ml Inj IV Q10MIN PRN ANALGESIA Fondaparinux 2.5 mg 11/29/20 22:00 11/30/20 00:04 Fondaparinux 2.5 Mg/0.5 Ml Inj SUB-Q 2.5 mg Q24H KRYSTAL Administration Gabapentin 600 mg 11/30/20 17:00 Gabapentin 500 Mg/10 Ml Oral Liqd PO BID KRYSTAL Dexmedetomidine HCl 200 mcg/ 50 mls @ 6.45 mls/hr 11/29/20 12:00 Sodium Chloride IV TITRATE KRYSTAL Protocol 0.2 MCG/KG/HR Propofol 1,000 mg in 100 mls @ 3.87 mls/hr 11/29/20 08:00 Diprivan 10 Mg/Ml IV TITR KRYSTAL Protocol 5 MCG/KG/MIN Midazolam HCl 100 mg/ Sodium 100 mls @ 2 mls/hr 11/29/20 12:00 11/30/20 06:58 Chloride IV 4 mg/hr TITR KRYSTAL 4 mls/hr Administration Protocol 2 MG/HR Fentanyl Citrate 2,000 mcg in 100 mls @ 6.45 mls/hr 11/29/20 12:30 11/30/20 15:29 Fentanyl Drip Premix IV 4 mcg/kg/hr TITR KRYSTAL 25.8 mls/hr Administration Protocol 1 MCG/KG/HR Lorazepam 2 mg 11/29/20 12:00 11/30/20 08:30 Lorazepam 2 Mg/Ml Vial IV 2 mg Q4H PRN Administration Agitation Methylprednisolone Sodium Succinate 60 mg 11/30/20 15:00 11/30/20 15:34 Methylprednisolone Sod Succinate 40 Mg/1 Ml Inj IV Not Given Q8HR [facility] Midazolam HCl 2 mg 11/29/20 10:22 Midazolam 2 Mg/2 Ml Inj IV Q10MIN PRN Sedation Montelukast Sodium 10 mg 11/29/20 22:00 11/29/20 22:29 Montelukast 10 Mg Tab PO Not Given HS KRYSTAL Senna/Docusate Sodium 1 tab 11/29/20 10:00 11/30/20 17:52 Sennosides/Docusate Sodium 8.6/50 Mg Tab FEEDTUBE Not Given BID KRYSTAL Simple Syrup 15 ml 11/29/20 15:23 Simple Syrup 15 Ml FEEDTUBE PRN PRN Hypoglycemia Simple Syrup 30 ml 11/29/20 15:23 Simple Syrup 15 Ml FEEDTUBE PRN PRN Hypoglycemia Sodium Bicarbonate 325 mg 11/29/20 15:23 Sodium Bicarbonate 325 Mg Tab FEEDTUBE PRN PRN For Clogged Feeding Tube Nutrition/Malnutrition Assess - Dietary Evaluation Nutrition/Malnutrition Findings: Nutrition Notes Start: 11/30/20 09:03 Freq: Status: Active Protocol: Document 11/30/20 09:03 SG (Rec: 11/30/20 09:32 [id number]) Nutrition Notes Need for Assessment generated from: MD Order Initial or Follow up Assessment Current Diagnosis Respiratory Failure Current Diet Tube Feeding Labs/Tests Reviewed Pertinent Medications Propofol 3.87 ml/hour Provides: 102 kcal/day Height 5 ft 6 in Weight 132.4 kg [place] Body Weight (kg) 59.09 BMI 47.1 Weight Status Morbidly Obese Subjective/Other Information Tf Consult due to pt on mechanical ventilation. Burn Absent Trauma Absent #1 Nutrition Diagnosis Inadequate oral intake Etiology Allergic reaction and ARF As Evidenced by Signs and Symptoms Pt on mechanical ventilator Is patient on ventilator? Yes Is Patient Ambulatory and/or Out of Bed No REE-([facility]-confined to bed) 2426.964 Kcal/Kg value to use for calculation 14 Approximate Energy Requirements Using 1854 kcal/Kg Calculation Used for Recommendations Kcal/kg Additional Notes Calorie needs : 11-14 kcal/kg ABW , 6040-6684 kcal/day Protein needs: 2.5 g/kg IBW , 148 g Fluid needs: 1ml/kcal Nutrition Intervention Change Diet Order: Start TF Vital High Protein Nutrition Support: Vital High Protein at 65 ml/hr flush 45 ml q4 hrs Kcal 1,560 Protein (gm) 135 Fluid (mL) 1,304 Goal #1 Meet at least 75% of protein and kcal needs via TF Follow-Up By: 12/01/20 Additional Comments F/u for intake, TF tolerance and respiratory status, CHanges to propofol kcals
[2020-11-30] MEDS: GABAPENTIN 500 MG/10 ML ORAL LIQD PO SCH ×2 (20:15→22:26)
[2020-11-30] MEDS: MONTELUKAST 10 MG TAB PO SCH (22:33)
[2020-12-01] MEDS: fentaNYL DRIP Premix 2,000 MCG/100 ML BAG IV SCH ×4 (00:16→18:36)
[2020-12-01] MEDS: MIDAZOLAM 100 MG in SODIUM CHLORIDE 0.9% 80 ML IV SCH (00:16)
--- NOTE | 2020-12-01 03:43 | Consultation ---
DATE OF CONSULTATION: 11/29/2020 CRITICAL CARE CONSULT NOTE CONSULTING PHYSICIAN: Dr. Crouch, Emergency Room physician. REASON FOR CONSULTATION: Acute hypoxemic respiratory failure, angioedema, on mechanical ventilatory support. CHIEF COMPLAINT/HISTORY OF PRESENT ILLNESS: As follows: The patient is a 39-year-old female who presented to the Emergency Room with shortness of breath. She was brought in by a private vehicle. She has a list of allergies including to BEESTINGS, TICK BITES, RED MEAT and HEPARIN and there was also a report that she has had over 40+ intubations and has undergone a tracheostomy in the past for allergic reactions. 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 She appeared to have angioedema. She had some urticaria and she was ultimately intubated. She reported that she had used EpiPen prior to the Emergency Room arrival. She was stridorous. The Emergency Room physician intubated and requested assistance with management. When I stopped by to see her, she was resting in bed. She was on a fentanyl drip and Versed. Propofol had been turned off secondary to hypotension. She was still significantly anxious. She denied any pain when I stopped by to see her. I do not have any history of vomiting or overt aspiration. The cause of the old angioedema is not clearly defined at this time. The above is as much of the history of presentation as I have. PAST MEDICAL HISTORY: Again, there is a history of allergic reactions, a history of hypertension, a history of migraines, a history of urticaria and she is obese. PAST SURGICAL HISTORY: She has had a hysterectomy and a questionable history of prior tracheostomies. MEDICATIONS: She was on when I stopped by to see her, according to the medication administration record, included the following: Precedex drip had been ordered, was not started. Propofol was ordered earlier, had been held. She was on Versed at 5 mg IV per hour. I believe she was also on a fentanyl drip, senna, docusate 1 tablet via feeding tube b.i.d. ALLERGIES: CIPROFLOXACIN, GELATIN, LEVAQUIN, PORK CONTAINING PRODUCTS, nature of this allergy is unclear. DIET: Obese lady, morbidly so, acute weight loss or gain history is unknown. FAMILY AND SOCIAL HISTORY: Apparently lives in the community. She denied tobacco, alcohol or illicit drug use or abuse at presentation. FAMILY HISTORY: Otherwise unknown. REVIEW OF SYSTEMS: Difficult to obtain secondary to patient's medical and mental condition. Since she has been in the ER, no gross hematochezia or melena, no gross hematuria, no hematemesis, no bloody tracheal secretions, no witnessed seizures. Review of systems otherwise unobtainable or as in the body of history above. PHYSICAL EXAMINATION: VITAL SIGNS: Review of the vital signs shows that at presentation, she was afebrile, temperature 98.8 degrees Fahrenheit, pulse of 90, respiratory rate of 26, blood pressure 153/134, O2 sats 100%, inspired oxygen concentration at that time was not recorded. When I stopped by to see her, O2 sats were 98% on the assist control mode of ventilation, tidal volume 450, rate of 20, PEEP of 6 and 50% FiO2 at that time. GENERAL: She is a young, morbidly obese female. Normocephalic, atraumatic on the mechanical ventilator with mildly increased respiratory effort at rest. HEAD, EYES, EARS, NOSE AND THROAT: Anicteric. No conjunctival erythema. Oropharynx was moist. ET tube was taped around 23-24 cm at the lips. No gross jugular venous distention, no thyromegaly. She does have a large neck circumference. Grossly, there were no palpable lymph nodes in the supraclavicular or submandibular lymph node chains. LUNGS: Auscultation of both lung billy, bilateral rhonchi, basilar predominant. No wheezing. HEART: Sounds 1 and 2 are heard at the time of my evaluation, regular rate and rhythm without overt rubs or murmurs. ABDOMEN: Soft, full, protuberant. Bowel sounds are positive, nontender. No palpable hepatosplenomegaly. EXTREMITIES: Without overt digital clubbing or cyanosis. No pedal edema. Pedal pulses were 2+ bilaterally. She moves all 4 extremities. NEUROLOGIC: Pupils are equal, round, about 3 mm, reactive to light. Extraocular muscle movements were intact. She moves all 4 extremities spontaneously. SKIN: Normal turgor without overt cellulitis or rash in the areas I examined. Please see the wound care nurses' notes for full description of her skin. PSYCHIATRIC: Mood and affect were anxious. She appeared to have intact judgment and insight. LABORATORY DATA: From my review are as follows: Admission white cell count 11,300, hemoglobin 12.4, hematocrit 37.7, platelet count was 190. Arterial blood gas at presentation showed a pH of 7.32, pCO2 of 46, pO2 of 76 that was on 100% FiO2 at that time. Serum sodium is 135, potassium 4.3, chloride 102, bicarbonate 24, BUN 10, creatinine 0.8, glucose 204. Liver function tests essentially within normal limits. Urine test was negative. No microbiology studies for my review. Chest x-ray shows small lung volumes, ET tube in good position, diffuse bilateral almost nodular type infiltrates as well as a right IJ central line with the tip in the distal SVC/right atrial junction. No gross pneumothorax, no gross bony fracture. ASSESSMENT: 1. Acute hypoxemic respiratory failure secondary to angioedema. 2. Angioedema, etiology unknown. 3. Morbid obesity. 4. Mild leukocytosis. 5. History of hypertension. 6. History of alpha-gal syndrome. PLAN: We will keep him on full mechanical ventilatory support in the short time. I believe she has a #6.5 ET tube. I will double check that. I ____ will need to make sure that the angioedema has significantly resolved before extubation. She failed a cuff leak test at my evaluation. Ventilator-associated pneumonia bundle has been introduced. Oxygen will be weaned to keep sats greater than or equal to about 90%. Aspiration precautions with head of bed greater than 40 degrees. I have instructed nursing staff to place an NG tube, so we can begin enteral nutrition. I will also consider the addition of Seroquel to ____ IV sedation, but for now, we should continue with fentanyl and Versed and see if we can get her under better control with that. Systemic steroids will be ordered. Benadryl will be ordered. Pepcid will be ordered. Bronchodilators and routine pulmonary hygiene will be per the respiratory therapist. Vasopressors as necessary to keep mean arterial blood pressures greater than or equal to about 65 mmHg. She is going to be on GI prophylaxis with Pepcid and DVT prophylaxis. Flu and pneumonia vaccination will be addressed per protocol. Thank you very much for the consult. We will follow along and make further recommendations as picture progresses/becomes clearer. She is critically ill on life-sustaining interventions including mechanical ventilatory support at very high risk of from immunologic and cardiopulmonary system decompensation. At this time, I spent about 35-40 minutes of critical care time without overlap and excluding any procedural time that may be necessary. TID: [id number] RECEIPT: [id number] DOYLE/ELISHA/KODY
[2020-12-01] MEDS: diphenhydrAMINE 50 MG/ML VIAL IV SCH ×4 (04:29→20:17)
[2020-12-01] MEDS: IPRATROPIUM/ALBUTEROL SULFATE 3 ML AMPUL.NEB IH SCH ×4 (04:52→21:06)
--- NOTE | 2020-12-01 08:53 | Progress Note ---
Assessment and Plan Acute hypoxemic respiratory failure Angioedema Morbid obesity Mild leukocytosis Hypertension. H/O alpha-gal syndrome - reduced set rate to n14 / min - continue benadryl, pepcid & Solumedrol - continue care as below otherwise; - continue Daily SAT and SBT assessment as tolerated - continue to wean supplemental oxygen for target O2 sat's > 90% acutely - VAP bundle addressed - continue lung protective strategies - continue bronchodilators with pulmonary hygiene per RT - wean per pulmonary driven protocols otherwise - continue accuchecks with glycemic control per SSI (While critically ill target blood glucose of 140-180 mg/dL; avoid hypoglycemia) - sedation prn for target RASS -1 to -2 - avoid nephrotoxins, renally dose all medications - continue to avoid benzodiazepine's, reduce the possibility of delirium - AB's per ID rec's - prn analgesia per CPOT score - Maintenance of sleep-wake cycle, avoid delirium - continue enteral nutritional support at goal rate as tolerated - G.I. & VTE prophylaxis - PT/OT/ROM exercises - continue mobility protocols for pressure ulcer prophylaxis - Monitor hemodynamics closely - continue other care per attending / other consultants - discharge planning ongoing concurrently .... Re-evaluate in am & prn CONDITION: CRITICAL PROGNOSIS: GUARDED CODE STATUS: FULL CODE The high probability of a clinically significant, sudden or life-threatening det erioration of the [respiratory, cardiovascular & immunologic] system(s) required my full and direct attention, intervention and personal management. The aggregate critical care time was [35] minutes without overlap. Time includes spent on; [x] Data Review and interpretation [x] Patient assessment and monitoring of vital signs [x] Documentation [x] Medication orders and management Subjective Date of service: 12/01/20 Principal diagnosis: Acute Hypoxemic Respiratory Failure; Angioedema;Obesity; leukocytosis Interval history: Patient is seen today for: Acute hypoxemic respiratory failure; Angioedema; Morbid obesity; leukocytosis; HTN; H/O alpha-gal syndrome Seen and examined at bedside; 24hour events reviewed; nursing and respiratory care staff consulted; no adverse overnight events reported to me; resting in bed; sedated on Fentanyl & Versed and still easily aroused; wants a drink; denies N/V/F/C; cuff leak test a little better but still tight Objective Vital Signs - 12hr 11/30/20 11/30/20 11/30/20 21:00 21:10 21:20 Temperature Pulse Rate 66 62 56 L Pulse Rate [ Throughout] Respiratory 20 20 11 L Rate Respiratory Rate [ Throughout] Blood Pressure 108/50 102/55 102/55 O2 Sat by Pulse 84 93 77 L Oximetry 11/30/20 11/30/20 11/30/20 21:30 21:40 21:50 Temperature Pulse Rate 116 H 134 H 100 H Pulse Rate [ Throughout] Respiratory 11 L 20 15 Rate Respiratory Rate [ Throughout] Blood Pressure 102/55 102/55 102/55 O2 Sat by Pulse 27 L 53 L 97 Oximetry 11/30/20 11/30/20 11/30/20 21:58 22:00 22:30 Temperature Pulse Rate 89 90 78 Pulse Rate [ Throughout] Respiratory 21 15 20 Rate Respiratory Rate [ Throughout] Blood Pressure 102/55 130/73 130/73 O2 Sat by Pulse 88 88 86 Oximetry 11/30/20 11/30/20 12/01/20 23:00 23:30 00:00 Temperature Pulse Rate 71 61 65 Pulse Rate [ Throughout] Respiratory 20 20 20 Rate Respiratory Rate [ Throughout] Blood Pressure 139/64 139/64 160/84 O2 Sat by Pulse 83 L 85 98 Oximetry 12/01/20 12/01/20 12/01/20 00:30 00:39 01:00 Temperature Pulse Rate 66 59 L 56 L Pulse Rate [ Throughout] Respiratory 20 19 Rate Respiratory Rate [ Throughout] Blood Pressure 160/84 160/84 164/74 O2 Sat by Pulse 97 96 95 Oximetry 12/01/20 12/01/20 12/01/20 01:30 02:00 02:30 Temperature Pulse Rate 60 63 63 Pulse Rate [ Throughout] Respiratory 20 20 20 Rate Respiratory Rate [ Throughout] Blood Pressure 164/74 131/69 131/69 O2 Sat by Pulse 95 96 95 Oximetry 12/01/20 12/01/20 12/01/20 03:00 03:30 04:00 Temperature Pulse Rate 57 L 74 66 Pulse Rate [ Throughout] Respiratory 20 21 12 Rate Respiratory Rate [ Throughout] Blood Pressure 144/65 144/65 134/61 O2 Sat by Pulse 96 87 95 Oximetry 12/01/20 12/01/20 12/01/20 04:30 04:49 05:00 Temperature Pulse Rate 60 64 64 Pulse Rate [ Throughout] Respiratory 20 20 Rate Respiratory Rate [ Throughout] Blood Pressure 144/65 134/61 144/65 O2 Sat by Pulse 97 95 96 Oximetry 12/01/20 12/01/20 12/01/20 05:30 06:00 08:19 Temperature 98.2 F Pulse Rate 60 Pulse Rate [ 58 L Throughout] Respiratory 20 Rate Respiratory 20 Rate [ Throughout] Blood Pressure 193/95 O2 Sat by Pulse 96 Oximetry 12/01/20 08:23 Temperature Pulse Rate 59 L Pulse Rate [ Throughout] Respiratory Rate Respiratory Rate [ Throughout] Blood Pressure 111/60 O2 Sat by Pulse 98 Oximetry Constitutional: appears uncomfortable, other (kianna g obese female with mildly increased respiratory effort at rest) Eyes: non-icteric ENT: oropharynx moist, other (ETT 23 cm JOSELYN) Neck: supple, no lymphadenopathy, no JVD, other (large circumference; + healed trach scar) Effort: mildly labored Ascultation: Bilateral: diminished breath sounds, rhonchi Percussion: Bilateral: not dull Cardiovascular: regular rate and rhythm Gastrointestinal: normoactive bowel sounds, soft, non-tender, non-distended Integumentary: normal Extremities: no cyanosis, no edema, pink and warm, pulses normal Neurologic: non-focal exam, pupils equal and round, CN II-XII normal, motor st rength normal and Psychiatric: mood appropriate, affect normal, other (sedated) CBC and BMP: 11/29/20 07:48 11/29/20 07:48 ABG, PT/INR, D-dimer: ABG ABG pH 7.425 (7.320-7.450) 12/01/20 04:21 POC ABG pCO2 36.1 mmHg (32.0-48.0) 12/01/20 04:21 POC ABG pO2 76.2 mmHg (83-108) L 12/01/20 04:21 POC ABG HCO3 23.2 12/01/20 04:21 ABG O2 Saturation 94.6 (0-100) 12/01/20 04:21 Abnormal lab findings: Abnormal Labs 11/29/20 11/29/20 11/29/20 07:48 07:48 07:48 WBC 11.3 H RDW 18.0 H Seg Neutrophils # 7.9 H ABG pH POC ABG pO2 ABG Hemoglobin ABG Oxyhemoglobin ABG Sodium ABG Potassium ABG Glucose Carboxyhemoglobin Sodium 135 L Glucose 204 H POC Glucose Total Creatine Kinase CK-MB (CK-2) Albumin 3.7 L Arterial Blood Glucose 11/29/20 11/30/20 11/30/20 11:37 04:27 11:22 WBC RDW Seg Neutrophils # ABG pH 7.318 L POC ABG pO2 76.1 L 196.4 H ABG Hemoglobin 11.96 L ABG Oxyhemoglobin 92.4 L 98.5 H ABG Sodium 133.7 L ABG Potassium 5.0 H ABG Glucose 171 H Carboxyhemoglobin 2.5 H Sodium Glucose POC Glucose 157 H Total Creatine Kinase CK-MB (CK-2) Albumin Arterial Blood Glucose 171 H 11/30/20 11/30/20 11/30/20 14:12 17:19 23:42 WBC RDW Seg Neutrophils # ABG pH POC ABG pO2 ABG Hemoglobin ABG Oxyhemoglobin ABG Sodium ABG Potassium ABG Glucose Carboxyhemoglobin Sodium Glucose POC Glucose 135 H 121 H Total Creatine Kinase 1132 H CK-MB (CK-2) 14.6 H Albumin Arterial Blood Glucose 12/01/20 12/01/20 12/01/20 03:30 04:21 06:16 WBC RDW Seg Neutrophils # ABG pH POC ABG pO2 37.6 L 76.2 L ABG Hemoglobin 10.4 L 10.8 L ABG Oxyhemoglobin 76.4 L 93.7 L ABG Sodium 112.8 L 110.9 L ABG Potassium ABG Glucose 103 H 107 H Carboxyhemoglobin Sodium Glucose POC Glucose 129 H Total Creatine Kinase CK-MB (CK-2) Albumin Arterial Blood Glucose 103 H 107 H Chest x-ray: pending Allied health notes reviewed: nursing
[2020-12-01] MEDS ORDERED: LIP THERAPY VASELINE TP PRN (08:54)
[2020-12-01] MEDS ORDERED: MINERAL OIL/PETROLATUM, WHITE OPHTH OINT 3.5 GM OU PRN (08:54)
[2020-12-01] MEDS: SENNOSIDES/DOCUSATE SODIUM 8.6/50 MG TAB FEEDTUBE SCH ×2 (09:22→21:34)
[2020-12-01] MEDS: FAMOTIDINE 20 MG/2 ML INJ IV SCH ×2 (09:22→21:34)
--- NOTE | 2020-12-01 09:54 | XRay Report ---
CHEST 1 VIEW 12/01/2020 8:46 AM INDICATION / CLINICAL INFORMATION: ETT placement. COMPARISON: None available. FINDINGS: SUPPORT DEVICES: ET tube and NG tube are satisfactory position. Right Port-A-Cath in satisfactory pos ition with tip overlying the distal SVC HEART / MEDIASTINUM: No significant abnormality. LUNGS / PLEURA: Mild increased interstitial prominence within the lungs No pneumothorax. Signer Name: Odell Carolina MD Signed: 12/01/2020 9:50 AM Workstation Name: [email or web address]
--- NOTE | 2020-12-01 10:11 | Electrocardiograph Report ---
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
[2020-12-01] MEDS: GABAPENTIN 500 MG/10 ML ORAL LIQD PO SCH ×2 (10:50→21:33)
--- NOTE | 2020-12-01 19:20 | Progress Note ---
Assessment and Plan Assessment and plan: HPI: 39-year-old female presents to ED with allergic reaction. Patient presents in respiratory distress. Patient has information in her phone stating that she history of allergic reactions to bee stings, takes, red meat, and heparin. Her father notes that she has had over 40+ intubations and also has undergone tracheostomy, with reversal, for allergic reactions. And father states that ET tube of 6.5 or 6.0 will work. 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 IV Benadryl, ketamine, Decadron works for spasms and stridor. Patient reports she used her EpiPen prior to ED arrival. Patient is stridorous at this time. Patient is able to give information by writing it down. Patient was known to be in hypoxic respiratory failure with stridor, and was promptly intubated and placed on ventilatory support (1) Acute respiratory failure with hypoxemia Current Visit: No Status: Acute Plan to address problem: Patient is intubated on ventilatory support due to severe angioedema Pulmonary critical consulted, Supportive care Restraint for safety (2) Hereditary angioedema , history of fall forgal syndrome Current Visit: Yes Status: Chronic Plan to address problem: Recurrence of severe angioedema the trigger is unknown to the patient. 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 Reduction when medically stable (7) history of hypertension (6) DVT prophylaxis Current Visit: No Status: Acute Plan to address problem: Subcu heparin 11/30: Patient is on vent but awake and communicative. She is anxious. Patient does not know what triggered current recurrence of angioedema. FiO2 35%. Hemodynamically stable. Discussed with nursing staff and the patient, she communicates with writing. 12/01: Patient remains on vent and sedated. Current FiO2 30%. No acute events from overnight reported. Angioedema of face seems to improving. Hemodynamically stable. Pulmonary managing ventilator. Will be extubated when angioedema improved significantly. Discussed with the nursing staff. History Interval history: Patient remains on vent and sedated. FiO2 30%. Hemodynamic stable. Angioedema seems to be improving. Hospitalist Physical - Constitutional Vitals: Temp Pulse Resp BP Pulse Ox 98.0 F 66 14 143/71 94 12/01/20 16:00 12/01/20 18:30 12/01/20 18:30 12/01/20 18:30 12/01/20 18:30 General appearance: Present: obese (Orbitally obese), other (On vent sedated) - EENT Eyes: Present: PERRL, EOM intact ENT: other (Lower facial and submandibular edema seems to be improving.) - Neck Neck: Present: supple. Absent: masses or JVD - Respiratory Respiratory effort: other (On vent) Respiratory: bilateral: CTA - Cardiovascular Rhythm: regular - Extremities Extremity abnormal: other (Trace lower extremity edema) Peripheral Pulses: within normal limits - Abdominal General gastrointestinal: soft, non-tender, normal bowel sounds - Integumentary Integumentary: Absent: rash - Psychiatric Psychiatric: other (Sedated) - Neurologic Neurologic: other (Sedated) HEART Score - HEART Score Troponin: Troponin T < 0.010 ng/mL (0.00-0.029) 11/30/20 14:12 Results - Labs CBC & Chem 7: 11/29/20 07:48 11/29/20 07:48 Labs: Laboratory Last Values WBC 11.3 K/mm3 (4.5-11.0) H 11/29/20 07:48 RBC 4.53 M/mm3 (3.65-5.03) 11/29/20 07:48 Hgb 12.4 gm/dl (10.1-14.3) 11/29/20 07:48 Hct 37.7 % (30.3-42.9) 11/29/20 07:48 MCV 83 fl (79-97) 11/29/20 07:48 MCH 28 pg (28-32) 11/29/20 07:48 MCHC 33 % (30-34) 11/29/20 07:48 RDW 18.0 % (13.2-15.2) H 11/29/20 07:48 Plt Count 190 K/mm3 (140-440) 11/29/20 07:48 Lymph % (Auto) 21.9 % (13.4-35.0) 11/29/20 07:48 Eaton % (Auto) 4.1 % (0.0-7.3) 11/29/20 07:48 Eos % (Auto) 3.7 % (0.0-4.3) 11/29/20 07:48 Baso % (Auto) 0.7 % (0.0-1.8) 11/29/20 07:48 Lymph # (Auto) 2.5 K/mm3 (1.2-5.4) 11/29/20 07:48 Eaton # (Auto) 0.5 K/mm3 (0.0-0.8) 11/29/20 07:48 Eos # (Auto) 0.4 K/mm3 (0.0-0.4) 11/29/20 07:48 Baso # (Auto) 0.1 K/mm3 (0.0-0.1) 11/29/20 07:48 Seg Neutrophils % 69.6 % (40.0-70.0) 11/29/20 07:48 Seg Neutrophils # 7.9 K/mm3 (1.8-7.7) H 11/29/20 07:48 ABG pH 7.425 (7.320-7.450) 12/01/20 04:21 POC ABG pCO2 36.1 mmHg (32.0-48.0) 12/01/20 04:21 POC ABG pO2 76.2 mmHg (83-108) L 12/01/20 04:21 POC ABG HCO3 23.2 12/01/20 04:21 ABG O2 Saturation 94.6 (0-100) 12/01/20 04:21 POC ABG Base Excess -0.9 12/01/20 04:21 ABG Hemoglobin 10.8 (12.0-17.5) L 12/01/20 04:21 ABG Oxyhemoglobin 93.7 (94-98) L 12/01/20 04:21 ABG Methemoglobin 0.3 (0.0-1.5) 12/01/20 04:21 ABG Sodium 110.9 mmol/L (136.0-145.0) L 12/01/20 04:21 ABG Potassium 4.4 mmol/L (3.40-4.50) 12/01/20 04:21 ABG Chloride 104.0 mmol/L (98-107) 12/01/20 04:21 ABG Glucose 107 mg/dL (65-95) H 12/01/20 04:21 Carboxyhemoglobin 0.7 (0.5-1.5) 12/01/20 04:21 FiO2 % 30.0 12/01/20 04:21 Sodium 135 mmol/L (137-145) L 11/29/20 07:48 Potassium 4.3 mmol/L (3.6-5.0) 11/29/20 07:48 Chloride 101.9 mmol/L (98-107) 11/29/20 07:48 Carbon Dioxide 24 mmol/L (22-30) 11/29/20 07:48 Anion Gap 13 mmol/L 11/29/20 07:48 BUN 10 mg/dL (7-17) 11/29/20 07:48 Creatinine 0.8 mg/dL (0.6-1.2) 11/29/20 07:48 Estimated GFR > 60 ml/min 11/29/20 07:48 BUN/Creatinine Ratio 13 % 11/29/20 07:48 Glucose 204 mg/dL (65-100) H 11/29/20 07:48 POC Glucose 96 mg/dL (70-105) 12/01/20 12:14 Calcium 8.7 mg/dL (8.4-10.2) 11/29/20 07:48 Total Bilirubin 0.20 mg/dL (0.1-1.2) 11/29/20 07:48 Direct Bilirubin < 0.2 mg/dL (0-0.2) 11/29/20 07:48 Indirect Bilirubin 0.0 mg/dL 11/29/20 07:48 AST 18 units/L (5-40) 11/29/20 07:48 ALT 33 units/L (7-56) 11/29/20 07:48 Alkaline Phosphatase 101 units/L (35-129) 11/29/20 07:48 Total Creatine Kinase 1132 units/L (30-135) H 11/30/20 14:12 CK-MB (CK-2) 14.6 ng/mL (0.0-4.0) H 11/30/20 14:12 CK-MB (CK-2) Rel Index 1.2 (0-4) 11/30/20 14:12 Troponin T < 0.010 ng/mL (0.00-0.029) 11/30/20 14:12 Total Protein 6.6 g/dL (6.3-8.2) 11/29/20 07:48 Albumin 3.7 g/dL (3.9-5) L 11/29/20 07:48 Albumin/Globulin Ratio 1.3 % 11/29/20 07:48 HCG, Qual Negative (Negative) 11/29/20 07:48 Arterial Blood Glucose 107 mg/dL (65-95) H 12/01/20 04:21 Arterial Blood Ionized Calcium 4.8 mg/dL (4.6-5.3) 12/01/20 04:21 Microbiology: Microbiology 11/29/20 Unknown Tracheal Aspirate Sputum Culture - Preliminary Dash/IV: Voiding Method Indwelling Catheter Active Medications - Current Medications Current Medications: Generic Name Dose Route Start Last Admin Trade Name Freq PRN Reason Stop Dose Admin Albuterol 2.5 mg 11/29/20 15:22 Albuterol 2.5 Mg/3 Ml Nebu IH Q4HRT PRN Shortness Of Breath Albuterol/Ipratropium 1 ampul 11/29/20 20:00 12/01/20 14:20 Ipratropium/Albuterol Sulfate 3 Ml Ampul.Neb IH 1 ampul Q6HRT KRYSTAL Administration Alprazolam 1 mg 11/29/20 13:00 Alprazolam 1 Mg Tab PO Q6H PRN Anxiety Lipase/Protease/Amylase 1 each 11/29/20 15:23 Lipase 10,500/Protease 25,000/Amylase 43,750 (Units) Dr Ariza FEEDTUBE PRN PRN For Clogged Feeding Tube Diphenhydramine HCl 25 mg 11/30/20 15:00 12/01/20 15:56 Diphenhydramine 50 Mg/Ml Vial IV 25 mg Q6H KRYSTAL Administration Famotidine 20 mg 11/30/20 15:00 12/01/20 09:22 Famotidine 20 Mg/2 Ml Inj IV 20 mg BID KRYSTAL Administration Fentanyl 50 mcg 11/29/20 10:22 Fentanyl 100 Mcg/2 Ml Inj IV Q10MIN PRN ANALGESIA Fondaparinux 2.5 mg 11/29/20 22:00 11/30/20 22:31 Fondaparinux 2.5 Mg/0.5 Ml Inj SUB-Q 2.5 mg Q24H KRYSTAL Administration Gabapentin 600 mg 11/30/20 17:00 12/01/20 10:50 Gabapentin 500 Mg/10 Ml Oral Liqd PO 600 mg BID [facility] Administration Hydrophilic Ointment 1 applic 12/01/20 08:54 Lip Therapy Vaseline TP Q2HR PRN Dry Lips Midazolam HCl 100 mg/ Sodium 100 mls @ 2 mls/hr 11/29/20 12:00 12/01/20 00:16 Chloride IV 4 mg/hr TITR KRYSTAL 4 mls/hr Administration Protocol 2 MG/HR Fentanyl Citrate 2,000 mcg in 100 mls @ 6.45 mls/hr 11/29/20 12:30 12/01/20 18:36 Fentanyl Drip Premix IV 3 mcg/kg/hr TITR KRYSTAL 19.35 mls/hr Administration Protocol 1 MCG/KG/HR Lorazepam 2 mg 11/29/20 12:00 11/30/20 08:30 Lorazepam 2 Mg/Ml Vial IV 2 mg Q4H PRN Administration Agitation Methylprednisolone Sodium Succinate 60 mg 11/30/20 15:00 11/30/20 15:34 Methylprednisolone Sod Succinate 40 Mg/1 Ml Inj IV Not Given Q8HR KRYSTAL Midazolam HCl 2 mg 11/29/20 10:22 Midazolam 2 Mg/2 Ml Inj IV Q10MIN PRN Sedation Montelukast Sodium 10 mg 11/29/20 22:00 11/30/20 22:33 Montelukast 10 Mg Tab PO 10 mg HS KRYSTAL Administration Multi-Ingred Cream/Lotion/Oil/Oint 1 applic 12/01/20 08:54 Mineral Oil/Petrolatum, White Ophth Oint 3.5 Gm OU Q4HR PRN Dry Eye(s) Senna/Docusate Sodium 1 tab 11/29/20 10:00 12/01/20 09:22 Sennosides/Docusate Sodium 8.6/50 Mg Tab FEEDTUBE 1 tab BID KRYSTAL Administration Simple Syrup 15 ml 11/29/20 15:23 Simple Syrup 15 Ml FEEDTUBE PRN PRN Hypoglycemia Simple Syrup 30 ml 11/29/20 15:23 Simple Syrup 15 Ml FEEDTUBE PRN PRN Hypoglycemia Sodium Bicarbonate 325 mg 11/29/20 15:23 Sodium Bicarbonate 325 Mg Tab FEEDTUBE PRN PRN For Clogged Feeding Tube Nutrition/Malnutrition Assess - Dietary Evaluation Nutrition/Malnutrition Findings: Nutrition Notes Start: 11/30/20 09:03 Freq: Status: Active Protocol: Document 12/01/20 10:58 (Rec: 12/01/20 11:05 [email or web address]) Nutrition Notes Initial or Follow up Brief Note Current Diagnosis Respiratory Failure Other Pertinent Diagnosis allergic reaction, alpha gal, hx HTN Current Diet Vital HP at 65 ml/hr Subjective/Other Information Per RN, pt tolerating TF at 25 ml/hr and will increase q8h or as tolerated. Pt remains on vent. Nutrition Intervention Follow-Up By: 12/03/20 Additional Comments F/u for TF at goal/tolerance and respiratory status
[2020-12-01] MEDS: LORazepam 2 MG/ML VIAL IV PRN (20:17)
[2020-12-01] MEDS: MONTELUKAST 10 MG TAB PO SCH (21:33)
[2020-12-01] MEDS: FONDAPARINUX 2.5 MG/0.5 ML INJ SUB-Q SCH (21:33)
--- NOTE | 2020-12-02 01:48 | XRay Report ---
CHEST 1 VIEW 12/02/2020 12:50 AM INDICATION / CLINICAL INFORMATION: follow up respiratory failure. COMPARISON: Previous day. FINDINGS: SUPPORT DEVICES: Unchanged. HEART / MEDIASTINUM: No significant abnormality. LUNGS / PLEURA: Increasing patchy opacity at the lung bases left greater than right. No pneumothorax. ADDITIONAL FINDINGS: No significant additional findings. IMPRESSION: Worsening basilar pneumonia. Signer Name: George Sandoval MD Signed: 12/02/2020 1:43 AM Workstation Name: [id number]
[2020-12-02] MEDS: diphenhydrAMINE 50 MG/ML VIAL IV SCH ×4 (03:15→22:21)
[2020-12-02] MEDS: IPRATROPIUM/ALBUTEROL SULFATE 3 ML AMPUL.NEB IH SCH ×4 (03:46→19:49)
[2020-12-02] MEDS: fentaNYL DRIP Premix 2,000 MCG/100 ML BAG IV SCH ×5 (04:53→22:08)
--- NOTE | 2020-12-02 08:53 | Progress Note ---
Assessment and Plan Acute hypoxemic respiratory failure Angioedema Morbid obesity Mild leukocytosis Hypertension. H/O alpha-gal syndrome (Called her Manoj and discussed her care at length; he states that he is a EMT and gives a h/o a very difficult airway with 40% at least tracheal stenosis. He states that her ENT physician he thinks is a Dr. Carias and will like us to reach out to her) - will have attending reach out to [facility] and leave my contact information as i do believe she may be best served with extubation at [facility] re: ENT backup in case of emergency airway compromise - also he states that the family is just recovering from COVID-19 so she will be isolated and a test sent - hold Versed and watch closely - if able to sedate decently off Versed will begin weaning trials - she is a difficult airway clinically, historically and anatomically and i will continue steroids and antihistamine therapy and ensure she has a persistent cuff leak prior to extubation as she does have a # [address] - continue Benadryl, Pepcid & Solumedrol - continue care as below otherwise; - continue Daily SAT and SBT assessment as tolerated - continue to wean supplemental oxygen for target O2 sat's > 90% acutely - VAP bundle addressed - continue lung protective strategies - continue bronchodilators with pulmonary hygiene per RT - wean per pulmonary driven protocols otherwise - continue accuchecks with glycemic control per SSI (While critically ill target blood glucose of 140-180 mg/dL; avoid hypoglycemia) - sedation prn for target RASS -1 to -2 - avoid nephrotoxins, renally dose all medications - continue to avoid benzodiazepine's, reduce the possibility of delirium - AB's per ID rec's - prn analgesia per CPOT score - Maintenance of sleep-wake cycle, avoid delirium - continue enteral nutritional support at goal rate as tolerated - G.I. & VTE prophylaxis - PT/OT/ROM exercises - continue mobility protocols for pressure ulcer prophylaxis - Monitor hemodynamics closely - continue other care per attending / other consultants - discharge planning ongoing concurrently .... Re-evaluate in am & prn CONDITION: CRITICAL PROGNOSIS: GUARDED CODE STATUS: FULL CODE The high probability of a clinically significant, sudden or life-threatening deterioration of the [respiratory, cardiovascular & immunologic] system(s) required my full and direct attention, intervention and personal management. The aggregate critical care time was [45] minutes without overlap. Time includes spent on; [x] Data Review and interpretation [x] Patient assessment and monitoring of vital signs [x] Documentation [x] Medication orders and management Subjective Date of service: 12/02/20 Principal diagnosis: Acute Hypoxemic Respiratory Failure; Angioedema;Obesity; leukocytosis Interval history: Patient is seen today for: Acute hypoxemic respiratory failure; Angioedema; Morbid obesity; leukocytosis; HTN; H/O alpha-gal syndrome Seen and examined at bedside; 24hour events reviewed; nursing and respiratory care staff consulted; no adverse overnight events reported to me; resting in bed; remains on MVS; fentanyl and versed running but she is still easily aroused; cuff leak test much better; still with significant anxiety issues Objective Vital Signs - 12hr 12/01/20 12/01/20 12/01/20 21:00 21:06 22:00 Temperature Pulse Rate 76 73 Pulse Rate [ 77 Throughout] Respiratory 14 13 Rate Respiratory 14 Rate [ Throughout] Blood Pressure 136/67 147/74 O2 Sat by Pulse 95 95 Oximetry 12/01/20 12/01/20 12/01/20 22:48 23:00 23:51 Temperature Pulse Rate 78 78 77 Pulse Rate [ Throughout] Respiratory 14 Rate Respiratory Rate [ Throughout] Blood Pressure 147/74 157/79 O2 Sat by Pulse 94 93 Oximetry 12/02/20 12/02/20 12/02/20 00:00 00:02 01:00 Temperature 100.4 F H Pulse Rate 79 80 78 Pulse Rate [ Throughout] Respiratory 14 14 12 Rate Respiratory Rate [ Throughout] Blood Pressure 149/79 149/79 141/78 O2 Sat by Pulse 93 93 92 Oximetry 12/02/20 12/02/20 12/02/20 02:00 03:00 03:15 Temperature 99.8 F H Pulse Rate 80 77 Pulse Rate [ Throughout] Respiratory 14 14 Rate Respiratory Rate [ Throughout] Blood Pressure 151/76 141/72 O2 Sat by Pulse 94 94 Oximetry 12/02/20 12/02/20 12/02/20 03:46 03:49 04:00 Temperature Pulse Rate 91 H 90 Pulse Rate [ 86 Throughout] Respiratory 14 Rate Respiratory 14 Rate [ Throughout] Blood Pressure 141/72 141/72 O2 Sat by Pulse 92 92 Oximetry 12/02/20 12/02/20 12/02/20 04:30 05:00 05:30 Temperature Pulse Rate 84 101 H 88 Pulse Rate [ Throughout] Respiratory 11 L 11 L 14 Rate Respiratory Rate [ Throughout] Blood Pressure 157/80 157/80 O2 Sat by Pulse 95 95 94 Oximetry 12/02/20 12/02/20 12/02/20 06:00 06:30 07:31 Temperature Pulse Rate 86 90 92 H Pulse Rate [ 96 H Throughout] Respiratory 14 13 Rate Respiratory 16 Rate [ Throughout] Blood Pressure 141/74 141/74 146/81 O2 Sat by Pulse 92 90 91 Oximetry Constitutional: no acute distress, other (kianna g obese female with mildly increased respiratory effort at rest) Eyes: non-icteric ENT: oropharynx moist, other (ETT 23 cm JOSELYN) Neck: supple, no lymphadenopathy, no JVD, other (large circumference; + healed trach scar) Effort: mildly labored Ascultation: Bilateral: diminished breath sounds, rhonchi Percussion: Bilateral: not dull Cardiovascular: regular rate and rhythm Gastrointestinal: normoactive bowel sounds, soft, non-tender, non-distended Integumentary: normal Extremities: no cyanosis, no edema, pink and warm, pulses normal Neurologic: non-focal exam, pupils equal and round, CN II-XII normal, motor strength normal and Psychiatric: anxious, other (sedated) CBC and BMP: 11/29/20 07:48 11/29/20 07:48 ABG, PT/INR, D-dimer: ABG ABG pH 7.306 (7.320-7.450) L 12/02/20 04:00 POC ABG pCO2 58.0 mmHg (32.0-48.0) H 12/02/20 04:00 POC ABG pO2 58.5 mmHg (83-108) L 12/02/20 04:00 POC ABG HCO3 28.3 12/02/20 04:00 ABG O2 Saturation 88.0 (0-100) 12/02/20 04:00 Abnormal lab findings: Abnormal Labs 11/29/20 11/29/20 11/29/20 07:48 07:48 07:48 WBC 11.3 H RDW 18.0 H Seg Neutrophils # 7.9 H ABG pH POC ABG pCO2 POC ABG pO2 ABG Hemoglobin ABG Oxyhemoglobin ABG Sodium ABG Potassium ABG Glucose Carboxyhemoglobin Sodium 135 L Glucose 204 H POC Glucose Total Creatine Kinase CK-MB (CK-2) Albumin 3.7 L Arterial Blood Glucose 11/29/20 11/30/20 11/30/20 11:37 04:27 11:22 WBC RDW Seg Neutrophils # ABG pH 7.318 L POC ABG pCO2 POC ABG pO2 76.1 L 196.4 H ABG Hemoglobin 11.96 L ABG Oxyhemoglobin 92.4 L 98.5 H ABG Sodium 133.7 L ABG Potassium 5.0 H ABG Glucose 171 H Carboxyhemoglobin 2.5 H Sodium Glucose POC Glucose 157 H Total Creatine Kinase CK-MB (CK-2) Albumin Arterial Blood Glucose 171 H 11/30/20 11/30/20 11/30/20 14:12 17:19 23:42 WBC RDW Seg Neutrophils # ABG pH POC ABG pCO2 POC ABG pO2 ABG Hemoglobin ABG Oxyhemoglobin ABG Sodium ABG Potassium ABG Glucose Carboxyhemoglobin Sodium Glucose POC Glucose 135 H 121 H Total Creatine Kinase 1132 H CK-MB (CK-2) 14.6 H Albumin Arterial Blood Glucose 12/01/20 12/01/20 12/01/20 03:30 04:21 06:16 WBC RDW Seg Neutrophils # ABG pH POC ABG pCO2 POC ABG pO2 37.6 L 76.2 L ABG Hemoglobin 10.4 L 10.8 L ABG Oxyhemoglobin 76.4 L 93.7 L ABG Sodium 112.8 L 110.9 L ABG Potassium ABG Glucose 103 H 107 H Carboxyhemoglobin Sodium Glucose POC Glucose 129 H Total Creatine Kinase CK-MB (CK-2) Albumin Arterial Blood Glucose 103 H 107 H 12/02/20 04:00 WBC RDW Seg Neutrophils # ABG pH 7.306 L POC ABG pCO2 58.0 H POC ABG pO2 58.5 L ABG Hemoglobin 11.4 L ABG Oxyhemoglobin 86.9 L ABG Sodium 124.7 L ABG Potassium ABG Glucose 118 H Carboxyhemoglobin Sodium Glucose POC Glucose Total Creatine Kinase CK-MB (CK-2) Albumin Arterial Blood Glucose 118 H Chest x-ray: image reviewed (no new infiltrate) Allied health notes reviewed: nursing
[2020-12-02] MEDS: SENNOSIDES/DOCUSATE SODIUM 8.6/50 MG TAB FEEDTUBE SCH ×2 (11:12→22:14)
[2020-12-02] MEDS: GABAPENTIN 500 MG/10 ML ORAL LIQD PO SCH ×2 (11:13→22:08)
[2020-12-02] MEDS: FAMOTIDINE 20 MG/2 ML INJ IV SCH ×2 (11:13→22:08)
--- NOTE | 2020-12-02 15:47 | Progress Note ---
Assessment and Plan Assessment and plan: 39-year-old female presents to ED with allergic reaction. Patient presents in respiratory distress. Patient has information in her phone stating that she history of allergic reactions to bee stings, takes, red meat, and heparin. Her father notes that she has had over 40+ intubations and also has undergone tracheostomy, with reversal, for allergic reactions. And father states that ET tube of 6.5 or 6.0 will work. 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 IV Benadryl, ketamine, Decadron works for spasms and stridor. Patient reports she used her EpiPen prior to ED arrival. Patient is stridorous at this time. Patient is able to give information by writing it down. Patient was known to be in hypoxic respiratory failure with stridor, and was promptly intubated and placed on ventilatory support --Acute respiratory failure with hypoxemia Current Visit: No Status: Acute Patient is intubated on ventilatory support due to severe angioedema And sedated, symptoms significantly improved Wean as tolerated and extubate Pulmonary critical following Restraint for safety -- Hereditary angioedema , history of fall forgal syndrome Current Visit: Yes Status: Chronic Plan to address problem: Recurrence of severe angioedema the trigger is unknown to the patient. Patient had multiple intubations in the past Patient has multiple allergies as mentioned above Patient is intubated on ventilatory support Wean as tolerated and extubate Patient has EpiPen -- Bronchial asthma with exacerbation Current Visit: Yes Status: Acute Plan to address problem: Patient is intubated on ventilatory support Nebulizers, IV steroids and supportive care -- Allergic reaction Current Visit: Yes Status: Acute Plan to address problem: High-dose steroids, antihistamines, Pepcid avoid the allergens Patient has EpiPen, will follow allergy hr associate upon discharge --Peripheral neuropathy Current Visit: Yes Status: Acute Plan to address problem: On gabapentin Resume gabapentin and supportive care --Morbid obesity with BMI of 45.0-49.9, adult Current Visit: Yes Status: Chronic Plan to address problem: Patient needs dietary modification exercise as tolerated. Reduction when medically stable --history of hypertension; moderate control Continue current antihypertensives as needed medications, -- DVT prophylaxis Current Visit: No Status: Acute Plan to address problem: Subcu heparin Closely monitor the patient and adjust the management as needed Plan of care reviewed with the patient's nurse The high probability of a clinically significant, sudden or life threatening deterioration of the [multiple] system(s) required my full and direct attention, intervention and personal management. The aggregate critical care time was [60] minutes. This time is in addition to time spent performing reported procedures but includes the following: [x] Data Review and interpretation [x] Patient assessment and monitoring of vital signs [x] Documentation [x] Medication orders and management Daily Hospital course: 11/30: Patient is on vent but awake and communicative. She is anxious. Patient does not know what triggered current recurrence of angioedema. FiO2 35%. Hemodynamically stable. Discussed with nursing staff and the patient, she communicates with writing. 12/01: Patient remains on vent and sedated. Current FiO2 30%. No acute events from overnight reported. Angioedema of face seems to improving. Hemodynamically stable. Pulmonary managing ventilator. Will be extubated when angioedema improved significantly. Discussed with the nursing staff. 12/02/20; Dr. Estrada recommended to initiate transfer to [facility] under the care of patient's ENT surgeon Dr. Carias I called [place] transfer center at [phone] and requested a transfer, discussed in detail with the transfer center nurse Ms. River She she took all the patient's information and added the name of the patient to the list of waiting for ICU transfers and reported that there are no ICU beds available at this point. Would call back, and said she would request for a facesheet I informed the above information to alarm mechanism adjuster Dr. Estrada ,ICU charge nurse and the patient's nurse. Will follow up with the transfer process History Interval history: I have seen and examined the patient at the bedside in ICU this morning Patient's records medication list, tests and reports reviewed Patient remains intubated on ventilatory support And sedated, no new overnight events reported by the nursing Hospitalist Physical - Constitutional Vitals: Temp Pulse Resp BP Pulse Ox 100.0 F H 99 H 15 133/65 96 12/02/20 08:00 12/02/20 15:00 12/02/20 15:00 12/02/20 15:00 12/02/20 15:00 General appearance: Present: no acute distress, well-nourished, obese (Orbitally obese), other (Intubated on vent) - EENT Eyes: Present: PERRL, EOM intact - Neck Neck: Present: supple, normal ROM - Respiratory Respiratory effort: normal Respiratory: bilateral: diminished, rhonchi, negative: rales, wheezing - Cardiovascular Rhythm: regular Heart Sounds: Present: S1 & S2 - Extremities Extremities: no ischemia, No edema - Abdominal General gastrointestinal: soft, non-tender, non-distended, normal bowel sounds - Integumentary Integumentary: Present: clear, warm - Psychiatric Psychiatric: other (Intubated and sedated) - Neurologic Neurologic: other (Intubated and sedated) HEART Score - HEART Score Troponin: Troponin T < 0.010 ng/mL (0.00-0.029) 11/30/20 14:12 Results - Labs CBC & Chem 7: 11/29/20 07:48 11/29/20 07:48 Labs: Laboratory Last Values WBC 11.3 K/mm3 (4.5-11.0) H 11/29/20 07:48 RBC 4.53 M/mm3 (3.65-5.03) 11/29/20 07:48 Hgb 12.4 gm/dl (10.1-14.3) 11/29/20 07:48 Hct 37.7 % (30.3-42.9) 11/29/20 07:48 MCV 83 fl (79-97) 11/29/20 07:48 MCH 28 pg (28-32) 11/29/20 07:48 MCHC 33 % (30-34) 11/29/20 07:48 RDW 18.0 % (13.2-15.2) H 11/29/20 07:48 Plt Count 190 K/mm3 (140-440) 11/29/20 07:48 Lymph % (Auto) 21.9 % (13.4-35.0) 11/29/20 07:48 [place] % (Auto) 4.1 % (0.0-7.3) 11/29/20 07:48 Eos % (Auto) 3.7 % (0.0-4.3) 11/29/20 07:48 Baso % (Auto) 0.7 % (0.0-1.8) 11/29/20 07:48 Lymph # (Auto) 2.5 K/mm3 (1.2-5.4) 11/29/20 07:48 [place] # (Auto) 0.5 K/mm3 (0.0-0.8) 11/29/20 07:48 Eos # (Auto) 0.4 K/mm3 (0.0-0.4) 11/29/20 07:48 Baso # (Auto) 0.1 K/mm3 (0.0-0.1) 11/29/20 07:48 Seg Neutrophils % 69.6 % (40.0-70.0) 11/29/20 07:48 Seg Neutrophils # 7.9 K/mm3 (1.8-7.7) H 11/29/20 07:48 ABG pH 7.306 (7.320-7.450) L 12/02/20 04:00 POC ABG pCO2 58.0 mmHg (32.0-48.0) H 12/02/20 04:00 POC ABG pO2 58.5 mmHg (83-108) L 12/02/20 04:00 POC ABG HCO3 28.3 12/02/20 04:00 ABG O2 Saturation 88.0 (0-100) 12/02/20 04:00 POC ABG Base Excess 1.0 12/02/20 04:00 ABG Hemoglobin 11.4 (12.0-17.5) L 12/02/20 04:00 ABG Oxyhemoglobin 86.9 (94-98) L 12/02/20 04:00 ABG Methemoglobin 0.3 (0.0-1.5) 12/02/20 04:00 ABG Sodium 124.7 mmol/L (136.0-145.0) L 12/02/20 04:00 ABG Potassium 4.3 mmol/L (3.40-4.50) 12/02/20 04:00 ABG Chloride 101.0 mmol/L (98-107) 12/02/20 04:00 ABG Glucose 118 mg/dL (65-95) H 12/02/20 04:00 Carboxyhemoglobin 0.9 (0.5-1.5) 12/02/20 04:00 FiO2 % 40.0 12/02/20 04:00 Sodium 135 mmol/L (137-145) L 11/29/20 07:48 Potassium 4.3 mmol/L (3.6-5.0) 11/29/20 07:48 Chloride 101.9 mmol/L (98-107) 11/29/20 07:48 Carbon Dioxide 24 mmol/L (22-30) 11/29/20 07:48 Anion Gap 13 mmol/L 11/29/20 07:48 BUN 10 mg/dL (7-17) 11/29/20 07:48 Creatinine 0.8 mg/dL (0.6-1.2) 11/29/20 07:48 Estimated GFR > 60 ml/min 11/29/20 07:48 BUN/Creatinine Ratio 13 % 11/29/20 07:48 Glucose 204 mg/dL (65-100) H 11/29/20 07:48 POC Glucose 143 mg/dL (70-105) H 12/02/20 12:02 Calcium 8.7 mg/dL (8.4-10.2) 11/29/20 07:48 Total Bilirubin 0.20 mg/dL (0.1-1.2) 11/29/20 07:48 Direct Bilirubin < 0.2 mg/dL (0-0.2) 11/29/20 07:48 Indirect Bilirubin 0.0 mg/dL 11/29/20 07:48 AST 18 units/L (5-40) 11/29/20 07:48 ALT 33 units/L (7-56) 11/29/20 07:48 Alkaline Phosphatase 101 units/L (35-129) 11/29/20 07:48 Total Creatine Kinase 1132 units/L (30-135) H 11/30/20 14:12 CK-MB (CK-2) 14.6 ng/mL (0.0-4.0) H 11/30/20 14:12 CK-MB (CK-2) Rel Index 1.2 (0-4) 11/30/20 14:12 Troponin T < 0.010 ng/mL (0.00-0.029) 11/30/20 14:12 Total Protein 6.6 g/dL (6.3-8.2) 11/29/20 07:48 Albumin 3.7 g/dL (3.9-5) L 11/29/20 07:48 Albumin/Globulin Ratio 1.3 % 11/29/20 07:48 HCG, Qual Negative (Negative) 11/29/20 07:48 Arterial Blood Glucose 118 mg/dL (65-95) H 12/02/20 04:00 Arterial Blood Ionized Calcium 4.6 mg/dL (4.6-5.3) 12/02/20 04:00 Microbiology: Microbiology 11/29/20 Unknown Tracheal Aspirate Sputum Culture - Final Dash/IV: Voiding Method Indwelling Catheter Active Medications - Current Medications Current Medications: Generic Name Dose Route Start Last Admin Trade Name Freq PRN Reason Stop Dose Admin Albuterol 2.5 mg 11/29/20 15:22 Albuterol 2.5 Mg/3 Ml Nebu IH Q4HRT PRN Shortness Of Breath Albuterol/Ipratropium 1 ampul 11/29/20 20:00 12/02/20 07:31 Ipratropium/Albuterol Sulfate 3 Ml Ampul.Neb IH 1 ampul Q6HRT KRYSTAL Administration Alprazolam 1 mg 11/29/20 13:00 Alprazolam 1 Mg Tab PO Q6H PRN Anxiety Lipase/Protease/Amylase 1 each 11/29/20 15:23 Lipase 10,500/Protease 25,000/Amylase 43,750 (Units) Dr Ariza FEEDTUBE PRN PRN For Clogged Feeding Tube Diphenhydramine HCl 25 mg 11/30/20 15:00 12/02/20 11:13 Diphenhydramine 50 Mg/Ml Vial IV 25 mg Q6H KRYSTAL Administration Famotidine 20 mg 11/30/20 15:00 12/02/20 11:13 Famotidine 20 Mg/2 Ml Inj IV 20 mg BID KRYSTAL Administration Fentanyl 50 mcg 11/29/20 10:22 Fentanyl 100 Mcg/2 Ml Inj IV Q10MIN PRN ANALGESIA Fondaparinux 2.5 mg 11/29/20 22:00 12/01/20 21:33 Fondaparinux 2.5 Mg/0.5 Ml Inj SUB-Q 2.5 mg Q24H KRYSTAL Administration Gabapentin 600 mg 11/30/20 17:00 12/02/20 11:13 Gabapentin 500 Mg/10 Ml Oral Liqd PO 600 mg BID KRYSTAL Administration Hydrophilic Ointment 1 applic 12/01/20 08:54 Lip Therapy Vaseline TP Q2HR PRN Dry Lips Midazolam HCl 100 mg/ Sodium 100 mls @ 2 mls/hr 11/29/20 12:00 12/01/20 00:16 Chloride IV 4 mg/hr TITR KRYSTAL 4 mls/hr Administration Protocol 2 MG/HR Fentanyl Citrate 2,000 mcg in 100 mls @ 6.45 mls/hr 11/29/20 12:30 12/02/20 10:10 Fentanyl Drip Premix IV 3 mcg/kg/hr TITR KRYSTAL 19.35 mls/hr Administration Protocol 1 MCG/KG/HR Lorazepam 2 mg 11/29/20 12:00 12/01/20 20:17 Lorazepam 2 Mg/Ml Vial IV 2 mg Q4H PRN Administration Agitation Methylprednisolone Sodium Succinate 60 mg 11/30/20 15:00 11/30/20 15:34 Methylprednisolone Sod Succinate 40 Mg/1 Ml Inj IV Not Given Q8HR KRYSTAL Midazolam HCl 2 mg 11/29/20 10:22 Midazolam 2 Mg/2 Ml Inj IV Q10MIN PRN Sedation Montelukast Sodium 10 mg 11/29/20 22:00 12/01/20 21:33 Montelukast 10 Mg Tab PO 10 mg HS KRYSTAL Administration Multi-Ingred Cream/Lotion/Oil/Oint 1 applic 12/01/20 08:54 Mineral Oil/Petrolatum, White Ophth Oint 3.5 Gm OU Q4HR PRN Dry Eye(s) Senna/Docusate Sodium 1 tab 11/29/20 10:00 12/02/20 11:12 Sennosides/Docusate Sodium 8.6/50 Mg Tab FEEDTUBE 1 tab BID KRYSTAL Administration Simple Syrup 15 ml 11/29/20 15:23 Simple Syrup 15 Ml FEEDTUBE PRN PRN Hypoglycemia Simple Syrup 30 ml 11/29/20 15:23 Simple Syrup 15 Ml FEEDTUBE PRN PRN Hypoglycemia Sodium Bicarbonate 325 mg 11/29/20 15:23 Sodium Bicarbonate 325 Mg Tab FEEDTUBE PRN PRN For Clogged Feeding Tube Nutrition/Malnutrition Assess - Dietary Evaluation Nutrition/Malnutrition Findings: Nutrition Notes Start: 11/30/20 09:03 Freq: Status: Active Protocol: Document 12/01/20 10:58 MK (Rec: 12/01/20 11:05 MK [id number]) Nutrition Notes Initial or Follow up Brief Note Current Diagnosis Respiratory Failure Other Pertinent Diagnosis allergic reaction, alpha gal, hx HTN Current Diet Vital HP at 65 ml/hr Subjective/Other Information Per RN, pt tolerating TF at 25 ml/hr and will increase q8h or as tolerated. Pt remains on vent. Nutrition Intervention Follow-Up By: 12/03/20 Additional Comments F/u for TF at goal/tolerance and respiratory status
--- NOTE | 2020-12-02 16:27 | Progress Note ---
Assessment and Plan - Patient Problems (1) Acute respiratory failure with hypoxemia Current Visit: No Status: Acute (2) Hereditary angioedema Current Visit: Yes Status: Chronic (3) Bronchial asthma Current Visit: Yes Status: Acute (4) Allergic reaction Current Visit: Yes Status: Acute (5) Peripheral neuropathy Current Visit: Yes Status: Acute (6) Morbid obesity with BMI of 45.0-49.9, adult Current Visit: Yes Status: Chronic (7) DVT prophylaxis Current Visit: No Status: Acute (8) Discharge planning issues Current Visit: Yes Status: Acute (9) Full code status Current Visit: Yes Status: Acute History Interval history: I have seen and examined the patient at the bedside in ICU Vital signs and tests and reports reviewed Patient remains intubated on ventilatory support Not in acute distress Hospitalist Physical - Constitutional Vitals: Temp Pulse Resp BP Pulse Ox 100.0 F H 106 H 16 133/65 94 12/02/20 08:00 12/02/20 15:27 12/02/20 15:27 12/02/20 15:27 12/02/20 15:27 General appearance: Present: no acute distress, well-nourished, obese (Orbitally obese), other (Intubated on vent sedated) - EENT Eyes: Present: PERRL, EOM intact - Neck Neck: Present: supple, normal ROM - Respiratory Respiratory effort: normal Respiratory: bilateral: diminished, rhonchi, negative: rales, wheezing - Cardiovascular Rhythm: regular Heart Sounds: Present: S1 & S2 - Extremities Extremities: no ischemia, No edema - Abdominal General gastrointestinal: soft, non-tender, non-distended, normal bowel sounds - Integumentary Integumentary: Present: clear, warm - Psychiatric Psychiatric: other (Intubated on vent and sedated) - Neurologic Neurologic: other (Intubated on vent and sedated) HEART Score - HEART Score Troponin: Troponin T < 0.010 ng/mL (0.00-0.029) 11/30/20 14:12 Results - Labs CBC & Chem 7: 11/29/20 07:48 11/29/20 07:48 Labs: Laboratory Last Values WBC 11.3 K/mm3 (4.5-11.0) H 11/29/20 07:48 RBC 4.53 M/mm3 (3.65-5.03) 11/29/20 07:48 Hgb 12.4 gm/dl (10.1-14.3) 11/29/20 07:48 Hct 37.7 % (30.3-42.9) 11/29/20 07:48 MCV 83 fl (79-97) 11/29/20 07:48 MCH 28 pg (28-32) 11/29/20 07:48 MCHC 33 % (30-34) 11/29/20 07:48 RDW 18.0 % (13.2-15.2) H 11/29/20 07:48 Plt Count 190 K/mm3 (140-440) 11/29/20 07:48 Lymph % (Auto) 21.9 % (13.4-35.0) 11/29/20 07:48 [place] % (Auto) 4.1 % (0.0-7.3) 11/29/20 07:48 Eos % (Auto) 3.7 % (0.0-4.3) 11/29/20 07:48 Baso % (Auto) 0.7 % (0.0-1.8) 11/29/20 07:48 Lymph # (Auto) 2.5 K/mm3 (1.2-5.4) 11/29/20 07:48 [place] # (Auto) 0.5 K/mm3 (0.0-0.8) 11/29/20 07:48 Eos # (Auto) 0.4 K/mm3 (0.0-0.4) 11/29/20 07:48 Baso # (Auto) 0.1 K/mm3 (0.0-0.1) 11/29/20 07:48 Seg Neutrophils % 69.6 % (40.0-70.0) 11/29/20 07:48 Seg Neutrophils # 7.9 K/mm3 (1.8-7.7) H 11/29/20 07:48 ABG pH 7.306 (7.320-7.450) L 12/02/20 04:00 POC ABG pCO2 58.0 mmHg (32.0-48.0) H 12/02/20 04:00 POC ABG pO2 58.5 mmHg (83-108) L 12/02/20 04:00 POC ABG HCO3 28.3 12/02/20 04:00 ABG O2 Saturation 88.0 (0-100) 12/02/20 04:00 POC ABG Base Excess 1.0 12/02/20 04:00 ABG Hemoglobin 11.4 (12.0-17.5) L 12/02/20 04:00 ABG Oxyhemoglobin 86.9 (94-98) L 12/02/20 04:00 ABG Methemoglobin 0.3 (0.0-1.5) 12/02/20 04:00 ABG Sodium 124.7 mmol/L (136.0-145.0) L 12/02/20 04:00 ABG Potassium 4.3 mmol/L (3.40-4.50) 12/02/20 04:00 ABG Chloride 101.0 mmol/L (98-107) 12/02/20 04:00 ABG Glucose 118 mg/dL (65-95) H 12/02/20 04:00 Carboxyhemoglobin 0.9 (0.5-1.5) 12/02/20 04:00 FiO2 % 40.0 12/02/20 04:00 Sodium 135 mmol/L (137-145) L 11/29/20 07:48 Potassium 4.3 mmol/L (3.6-5.0) 11/29/20 07:48 Chloride 101.9 mmol/L (98-107) 11/29/20 07:48 Carbon Dioxide 24 mmol/L (22-30) 11/29/20 07:48 Anion Gap 13 mmol/L 11/29/20 07:48 BUN 10 mg/dL (7-17) 11/29/20 07:48 Creatinine 0.8 mg/dL (0.6-1.2) 11/29/20 07:48 Estimated GFR > 60 ml/min 11/29/20 07:48 BUN/Creatinine Ratio 13 % 11/29/20 07:48 Glucose 204 mg/dL (65-100) H 11/29/20 07:48 POC Glucose 143 mg/dL (70-105) H 12/02/20 12:02 Calcium 8.7 mg/dL (8.4-10.2) 11/29/20 07:48 Total Bilirubin 0.20 mg/dL (0.1-1.2) 11/29/20 07:48 Direct Bilirubin < 0.2 mg/dL (0-0.2) 11/29/20 07:48 Indirect Bilirubin 0.0 mg/dL 11/29/20 07:48 AST 18 units/L (5-40) 11/29/20 07:48 ALT 33 units/L (7-56) 11/29/20 07:48 Alkaline Phosphatase 101 units/L (35-129) 11/29/20 07:48 Total Creatine Kinase 1132 units/L (30-135) H 11/30/20 14:12 CK-MB (CK-2) 14.6 ng/mL (0.0-4.0) H 11/30/20 14:12 CK-MB (CK-2) Rel Index 1.2 (0-4) 11/30/20 14:12 Troponin T < 0.010 ng/mL (0.00-0.029) 11/30/20 14:12 Total Protein 6.6 g/dL (6.3-8.2) 11/29/20 07:48 Albumin 3.7 g/dL (3.9-5) L 11/29/20 07:48 Albumin/Globulin Ratio 1.3 % 11/29/20 07:48 HCG, Qual Negative (Negative) 11/29/20 07:48 Arterial Blood Glucose 118 mg/dL (65-95) H 12/02/20 04:00 Arterial Blood Ionized Calcium 4.6 mg/dL (4.6-5.3) 12/02/20 04:00 Microbiology: Microbiology 11/29/20 Unknown Tracheal Aspirate Sputum Culture - Final Dash/IV: Voiding Method Indwelling Catheter Active Medications - Current Medications Current Medications: Generic Name Dose Route Start Last Admin Trade Name Freq PRN Reason Stop Dose Admin Albuterol 2.5 mg 11/29/20 15:22 Albuterol 2.5 Mg/3 Ml Nebu IH Q4HRT PRN Shortness Of Breath Albuterol/Ipratropium 1 ampul 11/29/20 20:00 12/02/20 15:27 Ipratropium/Albuterol Sulfate 3 Ml Ampul.Neb IH 1 ampul Q6HRT KRYSTAL Administration Alprazolam 1 mg 11/29/20 13:00 Alprazolam 1 Mg Tab PO Q6H PRN Anxiety Lipase/Protease/Amylase 1 each 11/29/20 15:23 Lipase 10,500/Protease 25,000/Amylase 43,750 (Units) Dr Cap FEEDTUBE PRN PRN For Clogged Feeding Tube Diphenhydramine HCl 25 mg 11/30/20 15:00 12/02/20 11:13 Diphenhydramine 50 Mg/Ml Vial IV 25 mg Q6H KRYSTAL Administration Famotidine 20 mg 11/30/20 15:00 12/02/20 11:13 Famotidine 20 Mg/2 Ml Inj IV 20 mg BID KRYSTAL Administration Fentanyl 50 mcg 11/29/20 10:22 Fentanyl 100 Mcg/2 Ml Inj IV Q10MIN PRN ANALGESIA Fondaparinux 2.5 mg 11/29/20 22:00 12/01/20 21:33 Fondaparinux 2.5 Mg/0.5 Ml Inj SUB-Q 2.5 mg Q24H KRYSTAL Administration Gabapentin 600 mg 11/30/20 17:00 12/02/20 11:13 Gabapentin 500 Mg/10 Ml Oral Liqd PO 600 mg BID [facility] Administration Hydrophilic Ointment 1 applic 12/01/20 08:54 Lip Therapy Vaseline TP Q2HR PRN Dry Lips Midazolam HCl 100 mg/ Sodium 100 mls @ 2 mls/hr 11/29/20 12:00 12/02/20 16:00 Chloride IV Infused TITR KRYSTAL Titration Protocol 2 MG/HR Fentanyl Citrate 2,000 mcg in 100 mls @ 6.45 mls/hr 11/29/20 12:30 12/02/20 16:23 Fentanyl Drip Premix IV 3 mcg/kg/hr TITR KRYSTAL 19.35 mls/hr Administration Protocol 1 MCG/KG/HR Lorazepam 2 mg 11/29/20 12:00 12/01/20 20:17 Lorazepam 2 Mg/Ml Vial IV 2 mg Q4H PRN Administration Agitation Methylprednisolone Sodium Succinate 60 mg 11/30/20 15:00 11/30/20 15:34 Methylprednisolone Sod Succinate 40 Mg/1 Ml Inj IV Not Given Q8HR KRYSTAL Midazolam HCl 2 mg 11/29/20 10:22 Midazolam 2 Mg/2 Ml Inj IV Q10MIN PRN Sedation Montelukast Sodium 10 mg 11/29/20 22:00 12/01/20 21:33 Montelukast 10 Mg Tab PO 10 mg HS KRYSTAL Administration Multi-Ingred Cream/Lotion/Oil/Oint 1 applic 12/01/20 08:54 Mineral Oil/Petrolatum, White Ophth Oint 3.5 Gm OU Q4HR PRN Dry Eye(s) Senna/Docusate Sodium 1 tab 11/29/20 10:00 12/02/20 11:12 Sennosides/Docusate Sodium 8.6/50 Mg Tab FEEDTUBE 1 tab BID KRYSTAL Administration Simple Syrup 15 ml 11/29/20 15:23 Simple Syrup 15 Ml FEEDTUBE PRN PRN Hypoglycemia Simple Syrup 30 ml 11/29/20 15:23 Simple Syrup 15 Ml FEEDTUBE PRN PRN Hypoglycemia Sodium Bicarbonate 325 mg 11/29/20 15:23 Sodium Bicarbonate 325 Mg Tab FEEDTUBE PRN PRN For Clogged Feeding Tube Nutrition/Malnutrition Assess - Dietary Evaluation Nutrition/Malnutrition Findings: Nutrition Notes Start: 11/30/20 09:03 Freq: Status: Active Protocol: Document 12/01/20 10:58 (Rec: 12/01/20 11:05 [id number]) Nutrition Notes Initial or Follow up Brief Note Current Diagnosis Respiratory Failure Other Pertinent Diagnosis allergic reaction, alpha gal, hx HTN Current Diet Vital HP at 65 ml/hr Subjective/Other Information Per RN, pt tolerating TF at 25 ml/hr and will increase q8h or as tolerated. Pt remains on vent. Nutrition Intervention Follow-Up By: 12/03/20 Additional Comments F/u for TF at goal/tolerance and respiratory status
--- NOTE | 2020-12-02 16:35 | Event Note ---
Date: 12/02/20 Dr. Estrada recommended to initiate transfer to [facility] under the care of patient's ENT surgeon Dr. Carias I called [facility] transfer center at [phone] and requested a transfer, discussed in detail with the transfer center nurse Ms. River She took all the patient's information and added the patient to the list of waiting for ICU transfers and reported that there are no ICU beds available at this point. Would call back, and said she would request for a facesheet I informed the above information to dinkey mechanic Dr. Estrada ,ICU charge nurse and the patient's nurse. Will follow up with the transfer process
[2020-12-02] MEDS: MONTELUKAST 10 MG TAB PO SCH (22:09)
[2020-12-02] MEDS: FONDAPARINUX 2.5 MG/0.5 ML INJ SUB-Q SCH (22:09)
[2020-12-03] MEDS: LORazepam 2 MG/ML VIAL IV PRN (02:34)
[2020-12-03] MEDS: fentaNYL DRIP Premix 2,000 MCG/100 ML BAG IV SCH ×5 (02:40→20:55)
[2020-12-03] MEDS: diphenhydrAMINE 50 MG/ML VIAL IV SCH ×3 (03:16→23:10)
--- NOTE | 2020-12-03 04:53 | XRay Report ---
CHEST 1 VIEW INDICATION: follow up respiratory failure. COMPARISON: One day prior. FINDINGS: Support devices: Unchanged. Heart: Stable. Lungs/Pleura: There is new extensive bilateral airspace disease greatest in the right upper lobe. No pleural abnormality. IMPRESSION: 1. Extensive bilateral airspace disease new since the exam from one day prior. Signer Name: Montrell Mclaughlin MD Signed: 12/03/2020 4:49 AM Workstation Name: [id number]
[2020-12-03] MEDS ORDERED: METOPROLOL TARTRATE 5 MG/5 ML INJ IV ONE (05:44)
[2020-12-03] MEDS: IPRATROPIUM/ALBUTEROL SULFATE 3 ML AMPUL.NEB IH SCH ×4 (07:21→20:27)
[2020-12-03] MEDS: niCARdipine 50 MG in SODIUM CHLORIDE 0.9% 250ML 230 ML IV SCH ×3 (08:43→21:04)
--- NOTE | 2020-12-03 09:03 | Progress Note ---
Assessment and Plan Assessment and plan: 39-year-old female presents to ED with allergic reaction. Patient presents in respiratory distress. Patient has information in her phone stating that she history of allergic reactions to bee stings, takes, red meat, and heparin. Her father notes that she has had over 40+ intubations and also has undergone tracheostomy, with reversal, for allergic reactions. And father states that ET tube of 6.5 or 6.0 will work. 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 IV Benadryl, ketamine, Decadron works for spasms and stridor. Patient reports she used her EpiPen prior to ED arrival. Patient is stridorous at this time. Patient is able to give information by writing it down. Patient was known to be in hypoxic respiratory failure with stridor, and was promptly intubated and placed on ventilatory support --COVID-19 infection; patient has Covid 19 for the last 20 days[per ] Current Visit: No Status: Acute Contact and droplet isolation No steroids/patient is allergic to steroids No need for remdesivir as symptoms more than 21 days Ventilatory support Prone position as tolerated ID evaluation --Hypertensive urgency; Current Visit: No Status: Acute Start Cardene drip, closely monitor blood pressures Adjust medications as needed --Febrile illness/worsening bilateral infiltrates chest x-ray Current Visit: No Status: Acute Check rodriguez PCR test is requested , pending to rule out COVID-19 Contact and droplet isolation Consult ID if needed --Acute respiratory failure with hypoxemia Current Visit: No Status: Acute Patient is intubated on ventilatory support due to severe angioedema And sedated, symptoms significantly improved Wean as tolerated and extubate Pulmonary critical following Restraint for safety -- Hereditary angioedema , Current Visit: Yes Status: Chronic Recurrence of severe angioedema the trigger is unknown to the patient. Patient had multiple intubations in the past Patient has multiple allergies as mentioned above Patient is intubated on ventilatory support Wean as tolerated and extubate Patient has EpiPen -- Bronchial asthma with exacerbation Current Visit: Yes Status: Acute Patient is intubated on ventilatory support Nebulizers, IV steroids and supportive care -- Allergic reaction Current Visit: Yes Status: Acute High-dose steroids, antihistamines, Pepcid avoid the allergens Patient has EpiPen, will follow allergy can sorter upon discharge --Peripheral neuropathy Current Visit: Yes Status: Acute On gabapentin Resume gabapentin and supportive care --Morbid obesity with BMI of 45.0-49.9, adult Current Visit: Yes Status: Chronic Patient needs dietary modification exercise as tolerated. Reduction when medically stable --history of hypertension; moderate control Continue current antihypertensives as needed medications, -- DVT prophylaxis Current Visit: No Status: Acute Subcu heparin We will closely monitor patient and adjust the management as needed Plan of care reviewed with the patient's nurse, will check with patient's We have initiated the transfer process to [facility] under the care of the patient's ENT specialist Lilia Cristobaler, [place] did not have any ICU beds available However they informed that they would consider transfer once the ICU beds are available. The high probability of a clinically significant, sudden or life threatening deterioration of the [multiple] system(s) required my full and direct attention, intervention and personal management. The aggregate critical care time was [60] minutes. This time is in addition to time spent performing reported procedures but includes the following: [x] Data Review and interpretation [x] Patient assessment and monitoring of vital signs [x] Documentation [x] Medication orders and management Daily Hospital course: 11/30: Patient is on vent but awake and communicative. She is anxious. Patient does not know what triggered current recurrence of angioedema. FiO2 35%. Hemodynamically stable. Discussed with nursing staff and the patient, she communicates with writing. 12/01: Patient remains on vent and sedated. Current FiO2 30%. No acute events from overnight reported. Angioedema of face seems to improving. Hemod ynamically stable. Pulmonary managing ventilator. Will be extubated when angioedema improved significantly. Discussed with the nursing staff. 12/02/20; Dr. Estrada recommended to initiate transfer to [facility] under the care of patient's ENT surgeon Dr. Carias I called [place] transfer center at [phone] and requested a transfer, discussed in detail with the transfer center nurse Ms. River She she took all the patient's information and added the name of the patient to the list of waiting for ICU transfers and reported that there are no ICU beds available at this point. Would call back, and said she would request for a facesheet I informed the above information to miter operator Dr. Estrada ,ICU charge nurse and the patient's nurse. Will follow up with the transfer process 12/03/2020; Rodriguez PCR test is positive today reports patient has been Covid positive for the last 20 days without any symptoms Placed on contact and respiratory isolation No steroids patient is allergic No remdesivir chronic positivity inflammatory markers History Interval history: I have seen and examined the patient at the bedside in ICU this morning Patient's chart and medications reviewed Patient remains intubated on ventilatory support And sedated No new events reported by the nursing staff Hospitalist Physical - Constitutional Vitals: Temp Pulse Resp BP Pulse Ox 100.9 F H 125 H 22 215/97 97 12/03/20 07:00 12/03/20 07:35 12/03/20 07:35 12/03/20 07:35 12/03/20 07:35 General appearance: Present: no acute distress, well-nourished, obese (Orbitally obese), other (Intubated on vent) - EENT Eyes: Present: PERRL, EOM intact - Neck Neck: Present: supple, normal ROM - Respiratory Respiratory effort: normal Respiratory: bilateral: diminished, rhonchi, negative: rales, wheezing - Cardiovascular Rhythm: regular Heart Sounds: Present: S1 & S2 - Extremities Extremities: no ischemia, No edema - Abdominal General gastrointestinal: soft, non-tender, non-distended, normal bowel sounds - Integumentary Integumentary: Present: clear, warm - Psychiatric Psychiatric: other (Intubated and sedated) - Neurologic Neurologic: other (Intubated and sedated) HEART Score - HEART Score Troponin: Troponin T < 0.010 ng/mL (0.00-0.029) 11/30/20 14:12 Results - Labs CBC & Chem 7: 11/29/20 07:48 11/29/20 07:48 Labs: Laboratory Last Values WBC 11.3 K/mm3 (4.5-11.0) H 11/29/20 07:48 RBC 4.53 M/mm3 (3.65-5.03) 11/29/20 07:48 Hgb 12.4 gm/dl (10.1-14.3) 11/29/20 07:48 Hct 37.7 % (30.3-42.9) 11/29/20 07:48 MCV 83 fl (79-97) 11/29/20 07:48 MCH 28 pg (28-32) 11/29/20 07:48 MCHC 33 % (30-34) 11/29/20 07:48 RDW 18.0 % (13.2-15.2) H 11/29/20 07:48 Plt Count 190 K/mm3 (140-440) 11/29/20 07:48 Lymph % (Auto) 21.9 % (13.4-35.0) 11/29/20 07:48 [place] % (Auto) 4.1 % (0.0-7.3) 11/29/20 07:48 Eos % (Auto) 3.7 % (0.0-4.3) 11/29/20 07:48 Baso % (Auto) 0.7 % (0.0-1.8) 11/29/20 07:48 Lymph # (Auto) 2.5 K/mm3 (1.2-5.4) 11/29/20 07:48 [place] # (Auto) 0.5 K/mm3 (0.0-0.8) 11/29/20 07:48 Eos # (Auto) 0.4 K/mm3 (0.0-0.4) 11/29/20 07:48 Baso # (Auto) 0.1 K/mm3 (0.0-0.1) 11/29/20 07:48 Seg Neutrophils % 69.6 % (40.0-70.0) 11/29/20 07:48 Seg Neutrophils # 7.9 K/mm3 (1.8-7.7) H 11/29/20 07:48 ABG pH 7.272 (7.320-7.450) L 12/03/20 05:10 POC ABG pCO2 60.1 mmHg (32.0-48.0) H 12/03/20 05:10 POC ABG pO2 82.8 mmHg (83-108) L 12/03/20 05:10 POC ABG HCO3 27.1 12/03/20 05:10 ABG O2 Saturation 95.3 (0-100) 12/03/20 05:10 POC ABG Base Excess -0.9 12/03/20 05:10 ABG Hemoglobin 13.6 (12.0-17.5) 12/03/20 05:10 ABG Oxyhemoglobin 94.1 (94-98) 12/03/20 05:10 ABG Methemoglobin 0.3 (0.0-1.5) 12/03/20 05:10 ABG Sodium 132.2 mmol/L (136.0-145.0) L 12/03/20 05:10 ABG Potassium 4.3 mmol/L (3.40-4.50) 12/03/20 05:10 ABG Chloride 99.0 mmol/L (98-107) 12/03/20 05:10 ABG Glucose 166 mg/dL (65-95) H 12/03/20 05:10 Carboxyhemoglobin 1.0 (0.5-1.5) 12/03/20 05:10 FiO2 % 55.0 12/03/20 05:10 Sodium 135 mmol/L (137-145) L 11/29/20 07:48 Potassium 4.3 mmol/L (3.6-5.0) 11/29/20 07:48 Chloride 101.9 mmol/L (98-107) 11/29/20 07:48 Carbon Dioxide 24 mmol/L (22-30) 11/29/20 07:48 Anion Gap 13 mmol/L 11/29/20 07:48 BUN 10 mg/dL (7-17) 11/29/20 07:48 Creatinine 0.8 mg/dL (0.6-1.2) 11/29/20 07:48 Estimated GFR > 60 ml/min 11/29/20 07:48 BUN/Creatinine Ratio 13 % 11/29/20 07:48 Glucose 204 mg/dL (65-100) H 11/29/20 07:48 POC Glucose 134 mg/dL (70-105) H 12/02/20 17:10 Calcium 8.7 mg/dL (8.4-10.2) 11/29/20 07:48 Total Bilirubin 0.20 mg/dL (0.1-1.2) 11/29/20 07:48 Direct Bilirubin < 0.2 mg/dL (0-0.2) 11/29/20 07:48 Indirect Bilirubin 0.0 mg/dL 11/29/20 07:48 AST 18 units/L (5-40) 11/29/20 07:48 ALT 33 units/L (7-56) 11/29/20 07:48 Alkaline Phosphatase 101 units/L (35-129) 11/29/20 07:48 Total Creatine Kinase 1132 units/L (30-135) H 11/30/20 14:12 CK-MB (CK-2) 14.6 ng/mL (0.0-4.0) H 11/30/20 14:12 CK-MB (CK-2) Rel Index 1.2 (0-4) 11/30/20 14:12 Troponin T < 0.010 ng/mL (0.00-0.029) 11/30/20 14:12 Total Protein 6.6 g/dL (6.3-8.2) 11/29/20 07:48 Albumin 3.7 g/dL (3.9-5) L 11/29/20 07:48 Albumin/Globulin Ratio 1.3 % 11/29/20 07:48 HCG, Qual Negative (Negative) 11/29/20 07:48 Arterial Blood Glucose 166 mg/dL (65-95) H 12/03/20 05:10 Arterial Blood Ionized Calcium 4.9 mg/dL (4.6-5.3) 12/03/20 05:10 Microbiology: Microbiology 11/29/20 Unknown Tracheal Aspirate Sputum Culture - Final Dash/IV: Voiding Method Indwelling Catheter Active Medications - Current Medications Current Medications: Generic Name Dose Route Start Last Admin Trade Name Freq PRN Reason Stop Dose Admin Albuterol 2.5 mg 11/29/20 15:22 Albuterol 2.5 Mg/3 Ml Nebu IH Q4HRT PRN Shortness Of Breath Albuterol/Ipratropium 1 ampul 11/29/20 20:00 12/03/20 07:35 Ipratropium/Albuterol Sulfate 3 Ml Ampul.Neb IH 1 ampul Q6HRT KRYSTAL Administration Alprazolam 1 mg 11/29/20 13:00 Alprazolam 1 Mg Tab PO Q6H PRN Anxiety Lipase/Protease/Amylase 1 each 11/29/20 15:23 Lipase 10,500/Protease 25,000/Amylase 43,750 (Units) Dr Ariza FEEDTUBE PRN PRN For Clogged Feeding Tube Diphenhydramine HCl 25 mg 11/30/20 15:00 12/03/20 03:16 Diphenhydramine 50 Mg/Ml Vial IV 25 mg Q6H KRYSTAL Administration Famotidine 20 mg 11/30/20 15:00 12/02/20 22:08 Famotidine 20 Mg/2 Ml Inj IV 20 mg BID KRYSTAL Administration Fentanyl 50 mcg 11/29/20 10:22 Fentanyl 100 Mcg/2 Ml Inj IV Q10MIN PRN ANALGESIA Fondaparinux 2.5 mg 11/29/20 22:00 12/02/20 22:09 Fondaparinux 2.5 Mg/0.5 Ml Inj SUB-Q 2.5 mg Q24H KRYSTAL Administration Gabapentin 600 mg 11/30/20 17:00 12/02/20 22:08 Gabapentin 500 Mg/10 Ml Oral Liqd PO 600 mg BID KRYSTAL Administration Hydrophilic Ointment 1 applic 12/01/20 08:54 Lip Therapy Vaseline TP Q2HR PRN Dry Lips Midazolam HCl 100 mg/ Sodium 100 mls @ 2 mls/hr 11/29/20 12:00 12/02/20 16:00 Chloride IV Infused TITR KRYSTAL Titration Protocol 2 MG/HR Fentanyl Citrate 2,000 mcg in 100 mls @ 6.45 mls/hr 11/29/20 12:30 12/03/20 02:40 Fentanyl Drip Premix IV 3 mcg/kg/hr TITR KRYSTAL 19.35 mls/hr Administration Protocol 1 MCG/KG/HR Nicardipine HCl 50 mg/ Sodium 250 mls @ 25 mls/hr 12/03/20 08:00 12/03/20 08:43 Chloride IV 5 mg/hr TITR KRYSTAL 25 mls/hr Administration Protocol 5 MG/HR Lorazepam 2 mg 11/29/20 12:00 12/03/20 02:34 Lorazepam 2 Mg/Ml Vial IV 2 mg Q4H PRN Administration Agitation Methylprednisolone Sodium Succinate 60 mg 11/30/20 15:00 11/30/20 15:34 Methylprednisolone Sod Succinate 40 Mg/1 Ml Inj IV Not Given Q8HR KRYSTAL Midazolam HCl 2 mg 11/29/20 10:22 Midazolam 2 Mg/2 Ml Inj IV Q10MIN PRN Sedation Montelukast Sodium 10 mg 11/29/20 22:00 12/02/20 22:09 Montelukast 10 Mg Tab PO 10 mg HS KRSYTAL Administration Multi-Ingred Cream/Lotion/Oil/Oint 1 applic 12/01/20 08:54 Mineral Oil/Petrolatum, White Ophth Oint 3.5 Gm OU Q4HR PRN Dry Eye(s) Senna/Docusate Sodium 1 tab 11/29/20 10:00 12/02/20 22:14 Sennosides/Docusate Sodium 8.6/50 Mg Tab FEEDTUBE Not Given BID KRYSTAL Simple Syrup 15 ml 11/29/20 15:23 Simple Syrup 15 Ml FEEDTUBE PRN PRN Hypoglycemia Simple Syrup 30 ml 11/29/20 15:23 Simple Syrup 15 Ml FEEDTUBE PRN PRN Hypoglycemia Sodium Bicarbonate 325 mg 11/29/20 15:23 Sodium Bicarbonate 325 Mg Tab FEEDTUBE PRN PRN For Clogged Feeding Tube Nutrition/Malnutrition Assess - Dietary Evaluation Nutrition/Malnutrition Findings: Nutrition Notes Start: 11/30/20 09:03 Freq: Status: Active Protocol: Document 12/01/20 10:58 MK (Rec: 12/01/20 11:05 [id number]) Nutrition Notes Initial or Follow up Brief Note Current Diagnosis Respiratory Failure Other Pertinent Diagnosis allergic reaction, alpha gal, hx HTN Current Diet Vital HP at 65 ml/hr Subjective/Other Information Per RN, pt tolerating TF at 25 ml/hr and will increase q8h or as tolerated. Pt remains on vent. Nutrition Intervention Follow-Up By: 12/03/20 Additional Comments F/u for TF at goal/tolerance and respiratory status
[2020-12-03] MEDS: GABAPENTIN 500 MG/10 ML ORAL LIQD PO SCH ×2 (09:16→23:09)
[2020-12-03] MEDS: SENNOSIDES/DOCUSATE SODIUM 8.6/50 MG TAB FEEDTUBE SCH ×2 (09:16→23:10)
[2020-12-03] MEDS: FAMOTIDINE 20 MG/2 ML INJ IV SCH ×2 (09:18→23:09)
--- NOTE | 2020-12-03 11:59 | Progress Note ---
Assessment and Plan Acute hypoxemic respiratory failure Angioedema Morbid obesity Mild leukocytosis Hypertension. H/O alpha-gal syndrome - follow COVID-19 test result - await [place] transfer - she is a difficult airway clinically, historically and anatomically and i will continue steroids and antihistamine therapy and ensure she has a persistent cuff leak prior to extubation as she does have a # [address] - continue to wean supplemental oxygen for target O2 sat's > 90% acutely - continue Benadryl, Pepcid & Solumedrol - continue care as below otherwise; - continue Daily SAT and SBT assessment as tolerated - VAP bundle addressed - continue lung protective strategies - continue bronchodilators with pulmonary hygiene per RT - wean per pulmonary driven protocols otherwise - continue accuchecks with glycemic control per SSI (While critically ill target blood glucose of 140-180 mg/dL; avoid hypoglycemia) - sedation prn for target RASS -1 to -2 - avoid nephrotoxins, renally dose all medications - continue to avoid benzodiazepine's, reduce the possibility of delirium - AB's per ID rec's - prn analgesia per CPOT score - Maintenance of sleep-wake cycle, avoid delirium - continue enteral nutritional support at goal rate as tolerated - G.I. & VTE prophylaxis - PT/OT/ROM exercises - continue mobility protocols for pressure ulcer prophylaxis - Monitor hemodynamics closely - continue other care per attending / other consultants - discharge planning ongoing concurrently .... Re-evaluate in am & prn CONDITION: CRITICAL PROGNOSIS: GUARDED CODE STATUS: FULL CODE The high probability of a clinically significant, sudden or life-threatening deterioration of the [respiratory, cardiovascular & immunologic] system(s) required my full and direct attention, intervention and personal management. The aggregate critical care time was [32] minutes without overlap. Time includes spent on; [x] Data Review and interpretation [x] Patient assessment and monitoring of vital signs [x] Documentation [x] Medication orders and management Subjective Date of service: 12/03/20 Principal diagnosis: Acute Hypoxemic Respiratory Failure; Angioedema;Obesity; l eukocytosis Interval history: Patient is seen today for: Acute hypoxemic respiratory failure; Angioedema; Morbid obesity; leukocytosis; HTN; H/O alpha-gal syndrome Seen and examined at bedside; 24hour events reviewed; nursing and respiratory care staff consulted; no adverse overnight events reported to me; resting in bed; remains on MVS; spoke with [place] [facility] yesterday and she was accepted pending bed availability; she was i believe # 4 on transfer list; FiO2 needs increased today and Coronavirus test sent Objective Vital Signs - 12hr 12/03/20 12/03/20 12/03/20 00:00 00:10 00:30 Temperature Pulse Rate 115 H 111 H 113 H Pulse Rate [ Throughout] Respiratory 19 19 Rate Respiratory Rate [ Throughout] Blood Pressure 196/90 197/90 196/90 O2 Sat by Pulse 94 95 93 Oximetry 12/03/20 12/03/20 12/03/20 01:00 01:30 02:00 Temperature Pulse Rate 111 H 106 H 108 H Pulse Rate [ Throughout] Respiratory 21 18 17 Rate Respiratory Rate [ Throughout] Blood Pressure 196/90 194/103 184/87 O2 Sat by Pulse 94 94 95 Oximetry 12/03/20 12/03/20 12/03/20 02:30 03:00 03:30 Temperature Pulse Rate 105 H 106 H 105 H Pulse Rate [ Throughout] Respiratory 21 17 17 Rate Respiratory Rate [ Throughout] Blood Pressure 184/87 172/93 184/87 O2 Sat by Pulse 96 96 96 Oximetry 12/03/20 12/03/20 12/03/20 04:00 04:30 05:00 Temperature Pulse Rate 104 H 104 H 107 H Pulse Rate [ Throughout] Respiratory 17 20 18 Rate Respiratory Rate [ Throughout] Blood Pressure 187/94 187/94 182/85 O2 Sat by Pulse 97 90 96 Oximetry 12/03/20 12/03/20 12/03/20 05:30 05:48 05:53 Temperature Pulse Rate 130 H 139 H 138 H Pulse Rate [ Throughout] Respiratory 21 Rate Respiratory Rate [ Throughout] Blood Pressure 182/85 182/85 182/85 O2 Sat by Pulse 97 96 Oximetry 12/03/20 12/03/20 12/03/20 06:00 06:30 07:00 Temperature 100.9 F H Pulse Rate 104 H 113 H 117 H Pulse Rate [ Throughout] Respiratory 23 27 H 21 Rate Respiratory Rate [ Throughout] Blood Pressure 184/97 195/99 195/92 O2 Sat by Pulse 97 97 96 Oximetry 12/03/20 12/03/20 12/03/20 07:30 07:35 08:00 Temperature Pulse Rate 126 H 125 H 130 H Pulse Rate [ 125 H Throughout] Respiratory 22 24 Rate Respiratory 22 Rate [ Throughout] Blood Pressure 215/97 215/97 204/108 O2 Sat by Pulse 97 97 97 Oximetry 12/03/20 12/03/20 12/03/20 08:31 09:01 09:31 Temperature Pulse Rate 124 H 127 H 138 H Pulse Rate [ Throughout] Respiratory 21 21 20 Rate Respiratory Rate [ Throughout] Blood Pressure 200/100 200/107 192/93 O2 Sat by Pulse 97 97 96 Oximetry 12/03/20 12/03/20 12/03/20 10:01 10:30 11:00 Temperature 99.8 F H Pulse Rate 133 H 131 H 130 H Pulse Rate [ Throughout] Respiratory 21 20 18 Rate Respiratory Rate [ Throughout] Blood Pressure 179/87 164/85 168/81 O2 Sat by Pulse 94 94 93 Oximetry 12/03/20 12/03/20 11:04 11:30 Temperature Pulse Rate 131 H 130 H Pulse Rate [ Throughout] Respiratory 18 Rate Respiratory Rate [ Throughout] Blood Pressure 168/81 171/78 O2 Sat by Pulse 93 92 Oximetry Constitutional: no acute distress, other (kianna g obese female with mildly increased respiratory effort at rest) Eyes: non-icteric ENT: oropharynx moist, other (ETT 23 cm JOSELYN) Neck: supple, no lymphadenopathy, no JVD, other (large circumference; + healed trach scar) Effort: mildly labored Ascultation: Bilateral: diminished breath sounds, rhonchi Percussion: Bilateral: not dull Cardiovascular: regular rate and rhythm Gastrointestinal: normoactive bowel sounds, soft, non-tender, non-distended Integumentary: normal Extremities: no cyanosis, no edema, pink and warm, pulses normal Neurologic: non-focal exam, pupils equal and round, CN II-XII normal, motor strength normal and Psychiatric: other (sedated) CBC and BMP: 12/04/20 05:40 12/04/20 05:40 ABG, PT/INR, D-dimer: ABG ABG pH 7.272 (7.320-7.450) L 12/03/20 05:10 POC ABG pCO2 60.1 mmHg (32.0-48.0) H 12/03/20 05:10 POC ABG pO2 82.8 mmHg (83-108) L 12/03/20 05:10 POC ABG HCO3 27.1 12/03/20 05:10 ABG O2 Saturation 95.3 (0-100) 12/03/20 05:10 Abnormal lab findings: Abnormal Labs 11/29/20 11/29/20 11/29/20 07:48 07:48 07:48 WBC 11.3 H RDW 18.0 H Seg Neutrophils # 7.9 H ABG pH POC ABG pCO2 POC ABG pO2 ABG Hemoglobin ABG Oxyhemoglobin ABG Sodium ABG Potassium ABG Glucose Carboxyhemoglobin Sodium 135 L Glucose 204 H POC Glucose Total Creatine Kinase CK-MB (CK-2) Albumin 3.7 L Arterial Blood Glucose 11/29/20 11/30/20 11/30/20 11:37 04:27 11:22 WBC RDW Seg Neutrophils # ABG pH 7.318 L POC ABG pCO2 POC ABG pO2 76.1 L 196.4 H ABG Hemoglobin 11.96 L ABG Oxyhemoglobin 92.4 L 98.5 H ABG Sodium 133.7 L ABG Potassium 5.0 H ABG Glucose 171 H Carboxyhemoglobin 2.5 H Sodium Glucose POC Glucose 157 H Total Creatine Kinase CK-MB (CK-2) Albumin Arterial Blood Glucose 171 H 11/30/20 11/30/20 11/30/20 14:12 17:19 23:42 WBC RDW Seg Neutrophils # ABG pH POC ABG pCO2 POC ABG pO2 ABG Hemoglobin ABG Oxyhemoglobin ABG Sodium ABG Potassium ABG Glucose Carboxyhemoglobin Sodium Glucose POC Glucose 135 H 121 H Total Creatine Kinase 1132 H CK-MB (CK-2) 14.6 H Albumin Arterial Blood Glucose 12/01/20 12/01/20 12/01/20 03:30 04:21 06:16 WBC RDW Seg Neutrophils # ABG pH POC ABG pCO2 POC ABG pO2 37.6 L 76.2 L ABG Hemoglobin 10.4 L 10.8 L ABG Oxyhemoglobin 76.4 L 93.7 L ABG Sodium 112.8 L 110.9 L ABG Potassium ABG Glucose 103 H 107 H Carboxyhemoglobin Sodium Glucose POC Glucose 129 H Total Creatine Kinase CK-MB (CK-2) Albumin Arterial Blood Glucose 103 H 107 H 12/02/20 12/02/20 12/02/20 04:00 12:02 17:10 WBC RDW Seg Neutrophils # ABG pH 7.306 L POC ABG pCO2 58.0 H POC ABG pO2 58.5 L ABG Hemoglobin 11.4 L ABG Oxyhemoglobin 86.9 L ABG Sodium 124.7 L ABG Potassium ABG Glucose 118 H Carboxyhemoglobin Sodium Glucose POC Glucose 143 H 134 H Total Creatine Kinase CK-MB (CK-2) Albumin Arterial Blood Glucose 118 H 12/03/20 05:10 WBC RDW Seg Neutrophils # ABG pH 7.272 L POC ABG pCO2 60.1 H POC ABG pO2 82.8 L ABG Hemoglobin ABG Oxyhemoglobin ABG Sodium 132.2 L ABG Potassium ABG Glucose 166 H Carboxyhemoglobin Sodium Glucose POC Glucose Total Creatine Kinase CK-MB (CK-2) Albumin Arterial Blood Glucose 166 H Chest x-ray: image reviewed (nbew RUL andf bilateral infiltrates) Allied health notes reviewed: nursing
[2020-12-03] MEDS: MIDAZOLAM 100 MG in SODIUM CHLORIDE 0.9% 80 ML IV SCH ×2 (16:00→20:56)
--- NOTE | 2020-12-03 20:11 | Event Note ---
Date: 12/03/20 I called patient's spouse Mr. Manoj Sol at [phone] and discussed in detail patient's condition, treatment plan, tests and reports, efforts to transfer the patient to [facility], however could not be successfully till now DVT unavailability of ICU beds at [place] at this point, he wanted to know the plan of extubation here in the hospital, I encouraged him to call back tomorrow to discuss with pulmonary critical physician Dr. Estrada. I answered all his questions, he also reports that patient Ms. Ebenezer Lynn has been Covid positive for the last 20 days. I encouraged him to call back if she has any new concerns regarding the patient's condition no other treatment. He was appreciative of my call
[2020-12-03] MEDS: FONDAPARINUX 2.5 MG/0.5 ML INJ SUB-Q SCH (23:09)
[2020-12-04] MEDS: fentaNYL DRIP Premix 2,000 MCG/100 ML BAG IV SCH ×6 (00:34→23:08)
[2020-12-04] MEDS: AZITHROMYCIN/NS 500 MG/250 ML 500 MG/250 ML BAG IV SCH ×2 (00:50→09:44)
[2020-12-04] MEDS: ACETAMINOPHEN 325 MG TAB PO PRN (01:10)
[2020-12-04] MEDS ORDERED: cefTRIAXone/NS 2 GM/100 ML 2 GM/100 ML BAG IV ONE (01:20)
[2020-12-04] MEDS: IPRATROPIUM/ALBUTEROL SULFATE 3 ML AMPUL.NEB IH SCH ×4 (01:38→19:19)
[2020-12-04] MEDS: diphenhydrAMINE 50 MG/ML VIAL IV SCH ×3 (06:26→15:40)
[2020-12-04 06:39] LABS: Hematocrit 31.2 % (30.3-42.9); Hemoglobin 10.4 gm/dl (10.1-14.3); Mean Corpuscular HGB Conc 33 % (30-34); Mean Corpuscular Volume 84 fl (79-97); Platelet Count 192 K/mm3 (140-440); Red Blood Count 3.71 M/mm3 (3.65-5.03); Red Cell Distribution Width 18.2 % (13.2-15.2)
[2020-12-04 07:02] LABS: Albumin 2.6 g/dL (3.9-5); Calcium 9.1 mg/dL (8.4-10.2)
[2020-12-04 08:33] LABS: Bilirubin,Urine NEG (Negative); Blood,Urine LG (Negative); Color,Urine Amber (Yellow); Mucus,Urine 3+ /HPF; Urobilinogen,Urine < 2.0 mg/dL (<2.0); White Blood Cell Casts,Urine 17 /LPF
[2020-12-04 08:50] LABS: WBC,Urine > 182.0 /HPF (0.0-6.0)
--- NOTE | 2020-12-04 09:12 | Progress Note ---
Assessment and Plan Assessment and plan: 39-year-old female presents to ED with allergic reaction. Patient presents in respiratory distress. Patient has information in her phone stating that she history of allergic reactions to bee stings, takes, red meat, and heparin. Her father notes that she has had over 40+ intubations and also has undergone tracheostomy, with reversal, for allergic reactions. And father states that ET tube of 6.5 or 6.0 will work. 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 IV Benadryl, ketamine, Decadron works for spasms and stridor. Patient reports she used her EpiPen prior to ED arrival. Patient is stridorous at this time. Patient is able to give information by writing it down. Patient was known to be in hypoxic respiratory failure with stridor, and was promptly intubated and placed on ventilatory support Patient has persistent fevers, COVID-19 is positive[ reports that patient has been positive for the last 20 days], allergic to steroid, no indication for remdesivir, ID consulted. Initiated transfer to [facility] under the care of patient's private ENT specialist, no ICU beds available awaiting call from the transfer center --COVID-19 infection; pneumonia patient has Covid 19 for the last 20 days[per ] Current Visit: No Status: Acute Contact and droplet isolation No steroids/patient is allergic to steroids No need for remdesivir as symptoms more than 21 days Ventilatory support Prone position as tolerated ID evaluation --Hypertensive urgency; Current Visit: No Status: Acute Start Cardene drip, closely monitor blood pressures Adjust medications as needed --Persistent fevers /worsening bilateral infiltrates chest x-ray/Covid 19 infection Current Visit: No Status: Acute Continue current management per guidelines ID consulted, pulmonary following --Acute respiratory failure with hypoxemia Current Visit: No Status: Acute Patient is intubated on ventilatory support due to severe angioedema And sedated, symptoms significantly improved Wean as tolerated and extubate Pulmonary critical following Restraint for safety -- Hereditary angioedema , Current Visit: Yes Status: Chronic Recurrence of severe angioedema the trigger is unknown to the patient. Patient had multiple intubations in the past Patient has multiple allergies as mentioned above Patient is intubated on ventilatory support Wean as tolerated and extubate Patient has EpiPen -- Bronchial asthma with exacerbation Current Visit: Yes Status: Acute Patient is intubated on ventilatory support Nebulizers, IV steroids and supportive care -- Allergic reaction Current Visit: Yes Status: Acute High-dose steroids, antihistamines, Pepcid avoid the allergens Patient has EpiPen, will follow allergy quality eng upon discharge --Peripheral neuropathy Current Visit: Yes Status: Acute On gabapentin Resume gabapentin and supportive care --Morbid obesity with BMI of 45.0-49.9, adult Current Visit: Yes Status: Chronic Patient needs dietary modification exercise as tolerated. Reduction when medically stable --history of hypertension; moderate control Continue current antihypertensives as needed medications, -- DVT prophylaxis Current Visit: No Status: Acute Subcu heparin We will closely monitor patient and adjust the management as needed Plan of care reviewed with the patient's nurse, will check with patient's We have initiated the transfer process to [facility] under the care of the patient's ENT specialist Mr. Carias, [facility] did not have any ICU beds available However they informed that they would consider transfer once the ICU beds are available. The high probability of a clinically significant, sudden or life threatening deterioration of the [multiple] system(s) required my full and direct attention, intervention and personal management. The aggregate critical care time was [60] minutes. This time is in addition to time spent performing reported procedures but includes the following: [x] Data Review and interpretation [x] Patient assessment and monitoring of vital signs [x] Documentation [x] Medication orders and management Daily Hospital course: 11/30: Patient is on vent but awake and communicative. She is anxious. Patient does not know what triggered current recurrence of angioedema. FiO2 35%. Hemodynamically stable. Discussed with nursing staff and the patient, she communicates with writing. 12/01: Patient remains on vent and sedated. Current FiO2 30%. No acute events from overnight reported. Angioedema of face seems to improving. Hemodynamically stable. Pulmonary managing ventilator. Will be extubated when angioedema improved significantly. Discussed with the nursing staff. 12/02/20; Dr. Estrada recommended to initiate transfer to [facility] under the care of patient's ENT surgeon Dr. Carias I called [facility] transfer center at [phone] and requested a transfer, discussed in detail with the transfer center nurse Ms. River She she took all the patient's information and added the name of the patient to the list of waiting for ICU transfers and reported that there are no ICU beds available at this point. Would call back, and said she would request for a facesheet I informed the above information to clerk Dr. Estrada ,ICU charge nurse and the patient's nurse. Will follow up with the transfer process 12/03/2020; [facility] PCR test is positive today reports patient has been Covid positive for the last 20 days without any symptoms Management per guidelines, ID consult 12/03/20 20:18: I called patient's spouse Mr. Manoj Sol at [phone] and discussed in detail patient's condition, treatment plan, tests and reports, efforts to transfer the patient to [facility], however could not be successfully till now due to unavailability of ICU beds at [facility] at this point, he wanted to know the plan of extubation here in the hospital, I encouraged him to call back tomorrow to discuss with pulmonary critical physician Dr. Estrada. I answered all his questions, he also reports that patient Ms. Ebenezer Lynn has been Covid positive for the last 20 days. I encouraged him to call back if she has any new concerns regarding the patient's condition no other treatment. He was appreciative of my call 12/04/2020; Persistent fevers, persistent positive COVID-19 ID consulted, awaiting transfer to [facility] Discussed extensively with patient's yesterday Patient is critically ill ,very poor prognosis History Interval history: I have seen and examined the patient at the bedside in ICU this morning Patient's chart and medications reviewed Patient remains intubated on ventilatory support COVID-19 positive for the last 20 days according to her No new events reported by the nursing staff Hospitalist Physical - Constitutional Vitals: Temp Pulse Resp BP Pulse Ox 101.5 F H 114 H 18 106/55 92 12/04/20 07:00 12/04/20 06:00 12/04/20 06:00 12/04/20 06:00 12/04/20 06:00 General appearance: Present: no acute distress, well-nourished, obese (Orbitally obese), other (Intubated on vent) - EENT Eyes: Present: PERRL, EOM intact - Neck Neck: Present: supple, normal ROM - Respiratory Respiratory effort: normal Respiratory: bilateral: diminished, rhonchi, negative: rales, wheezing - Cardiovascular Rhythm: regular Heart Sounds: Present: S1 & S2 - Extremities Extremities: no ischemia, No edema - Abdominal General gastrointestinal: soft, non-tender, non-distended, normal bowel sounds - Integumentary Integumentary: Present: clear, warm - Psychiatric Psychiatric: other (Intubated on vent) - Neurologic Neurologic: other (Intubated on vent) HEART Score - HEART Score Troponin: Troponin T < 0.010 ng/mL (0.00-0.029) 11/30/20 14:12 Results - Labs CBC & Chem 7: 12/04/20 05:40 12/04/20 05:40 Labs: Laboratory Last Values WBC 21.7 K/mm3 (4.5-11.0) H 12/04/20 05:40 RBC 3.71 M/mm3 (3.65-5.03) 12/04/20 05:40 Hgb 10.4 gm/dl (10.1-14.3) 12/04/20 05:40 Hct 31.2 % (30.3-42.9) 12/04/20 05:40 MCV 84 fl (79-97) 12/04/20 05:40 MCH 28 pg (28-32) 12/04/20 05:40 MCHC 33 % (30-34) 12/04/20 05:40 RDW 18.2 % (13.2-15.2) H 12/04/20 05:40 Plt Count 192 K/mm3 (140-440) 12/04/20 05:40 Lymph % (Auto) 21.9 % (13.4-35.0) 11/29/20 07:48 Ransom % (Auto) 4.1 % (0.0-7.3) 11/29/20 07:48 Eos % (Auto) 3.7 % (0.0-4.3) 11/29/20 07:48 Baso % (Auto) 0.7 % (0.0-1.8) 11/29/20 07:48 Lymph # (Auto) 2.5 K/mm3 (1.2-5.4) 11/29/20 07:48 Ransom # (Auto) 0.5 K/mm3 (0.0-0.8) 11/29/20 07:48 Eos # (Auto) 0.4 K/mm3 (0.0-0.4) 11/29/20 07:48 Baso # (Auto) 0.1 K/mm3 (0.0-0.1) 11/29/20 07:48 Seg Neutrophils % 69.6 % (40.0-70.0) 11/29/20 07:48 Seg Neutrophils # 7.9 K/mm3 (1.8-7.7) H 11/29/20 07:48 ABG pH 7.337 (7.320-7.450) 12/04/20 03:32 POC ABG pCO2 54.6 mmHg (32.0-48.0) H 12/04/20 03:32 POC ABG pO2 78.6 mmHg (83-108) L 12/04/20 03:32 POC ABG HCO3 28.6 12/04/20 03:32 ABG O2 Saturation 95.4 (0-100) 12/04/20 03:32 POC ABG Base Excess 1.9 12/04/20 03:32 ABG Hemoglobin 11.4 (12.0-17.5) L 12/04/20 03:32 ABG Oxyhemoglobin 94.7 (94-98) 12/04/20 03:32 ABG Methemoglobin 0.3 (0.0-1.5) 12/04/20 03:32 ABG Sodium 130.2 mmol/L (136.0-145.0) L 12/04/20 03:32 ABG Potassium 4.4 mmol/L (3.40-4.50) 12/04/20 03:32 ABG Chloride 104.0 mmol/L (98-107) 12/04/20 03:32 ABG Glucose 164 mg/dL (65-95) H 12/04/20 03:32 Carboxyhemoglobin 0.4 (0.5-1.5) L 12/04/20 03:32 FiO2 % 65.0 12/04/20 03:32 Sodium 138 mmol/L (137-145) 12/04/20 05:40 Potassium 4.6 mmol/L (3.6-5.0) 12/04/20 05:40 Chloride 102.6 mmol/L (98-107) 12/04/20 05:40 Carbon Dioxide 29 mmol/L (22-30) 12/04/20 05:40 Anion Gap 11 mmol/L 12/04/20 05:40 BUN 26 mg/dL (7-17) H 12/04/20 05:40 Creatinine 1.7 mg/dL (0.6-1.2) H D 12/04/20 05:40 Estimated GFR 33 ml/min 12/04/20 05:40 BUN/Creatinine Ratio 15 % 12/04/20 05:40 Glucose 157 mg/dL (65-100) H 12/04/20 05:40 POC Glucose 134 mg/dL (70-105) H 12/02/20 17:10 Calcium 9.1 mg/dL (8.4-10.2) 12/04/20 05:40 Magnesium 2.00 mg/dL (1.7-2.3) 12/04/20 05:40 Total Bilirubin 0.30 mg/dL (0.1-1.2) 12/04/20 05:40 Direct Bilirubin < 0.2 mg/dL (0-0.2) 11/29/20 07:48 Indirect Bilirubin 0.0 mg/dL 11/29/20 07:48 AST 19 units/L (5-40) 12/04/20 05:40 ALT 28 units/L (7-56) 12/04/20 05:40 Alkaline Phosphatase 93 units/L (35-129) 12/04/20 05:40 Total Creatine Kinase 1132 units/L (30-135) H 11/30/20 14:12 CK-MB (CK-2) 14.6 ng/mL (0.0-4.0) H 11/30/20 14:12 CK-MB (CK-2) Rel Index 1.2 (0-4) 11/30/20 14:12 Troponin T < 0.010 ng/mL (0.00-0.029) 11/30/20 14:12 Total Protein 6.2 g/dL (6.3-8.2) L 12/04/20 05:40 Albumin 2.6 g/dL (3.9-5) L 12/04/20 05:40 Albumin/Globulin Ratio 0.7 % 12/04/20 05:40 HCG, Qual Negative (Negative) 11/29/20 07:48 Arterial Blood Glucose 164 mg/dL (65-95) H 12/04/20 03:32 Arterial Blood Ionized Calcium 4.7 mg/dL (4.6-5.3) 12/04/20 03:32 Urine Color Lauren (Yellow) 12/04/20 07:30 Urine Turbidity Turbid (Clear) 12/04/20 07:30 Urine pH 5.0 (5.0-7.0) 12/04/20 07:30 Ur Specific [place] 1.011 (1.003-1.030) 12/04/20 07:30 Urine Protein 100 mg/dl mg/dL (Negative) 12/04/20 07:30 Urine Glucose (UA) Neg mg/dL (Negative) 12/04/20 07:30 Urine Ketones Neg mg/dL (Negative) 12/04/20 07:30 Urine Blood Lg (Negative) 12/04/20 07:30 Urine Nitrite Neg (Negative) 12/04/20 07:30 Urine Bilirubin Neg (Negative) 12/04/20 07:30 Urine Urobilinogen < 2.0 mg/dL (<2.0) 12/04/20 07:30 Ur Leukocyte Esterase Mod (Negative) 12/04/20 07:30 Urine WBC (Auto) > 182.0 /HPF (0.0-6.0) H 12/04/20 07:30 Urine RBC (Auto) 33.0 /HPF (0.0-6.0) 12/04/20 07:30 Urine WBC Clumps 3+ /HPF 12/04/20 07:30 WBC Casts 17 /LPF 12/04/20 07:30 Urine Mucus 3+ /HPF 12/04/20 07:30 Coronavirus (PCR) Positive (Negative) A 12/03/20 08:00 Microbiology: Microbiology 12/04/20 00:54 Peripheral/Venous Blood Culture - Preliminary Culture in Progress 12/04/20 00:54 Peripheral/Venous Blood Culture - Preliminary Culture in Progress Dash/IV: Voiding Method Indwelling Catheter Active Medications - Current Medications Current Medications: Generic Name Dose Route Start Last Admin Trade Name Freq PRN Reason Stop Dose Admin Acetaminophen 650 mg 12/04/20 00:39 12/04/20 01:10 Acetaminophen 325 Mg Tab PO 650 mg Q6H PRN Administration Fever >101 Albuterol 2.5 mg 11/29/20 15:22 Albuterol 2.5 Mg/3 Ml Nebu IH Q4HRT PRN Shortness Of Breath Albuterol/Ipratropium 1 ampul 11/29/20 20:00 12/04/20 08:28 Ipratropium/Albuterol Sulfate 3 Ml Ampul.Neb IH 1 ampul Q6HRT KRYSTAL Administration Alprazolam 1 mg 11/29/20 13:00 Alprazolam 1 Mg Tab PO Q6H PRN Anxiety Lipase/Protease/Amylase 1 each 11/29/20 15:23 Lipase 10,500/Protease 25,000/Amylase 43,750 (Units) Dr Cap FEEDTUBE PRN PRN For Clogged Feeding Tube Diphenhydramine HCl 25 mg 11/30/20 15:00 12/04/20 06:26 Diphenhydramine 50 Mg/Ml Vial IV Not Given Q6H KRYSTAL Famotidine 20 mg 11/30/20 15:00 12/03/20 23:09 Famotidine 20 Mg/2 Ml Inj IV 20 mg BID KRYSTAL Administration Fentanyl 50 mcg 11/29/20 10:22 Fentanyl 100 Mcg/2 Ml Inj IV Q10MIN PRN ANALGESIA Fondaparinux 2.5 mg 11/29/20 22:00 12/03/20 23:09 Fondaparinux 2.5 Mg/0.5 Ml Inj SUB-Q 2.5 mg Q24H KRYSTAL Administration Gabapentin 600 mg 11/30/20 17:00 12/03/20 23:09 Gabapentin 500 Mg/10 Ml Oral Liqd PO 600 mg BID KRYSTAL Administration Hydrophilic Ointment 1 applic 12/01/20 08:54 Lip Therapy Vaseline TP Q2HR PRN Dry Lips Midazolam HCl 100 mg/ Sodium 100 mls @ 2 mls/hr 11/29/20 12:00 12/03/20 20:56 Chloride IV 2 mg/hr TITR KRYSTAL 2 mls/hr Administration Protocol 2 MG/HR Fentanyl Citrate 2,000 mcg in 100 mls @ 6.45 mls/hr 11/29/20 12:30 12/04/20 07:35 Fentanyl Drip Premix IV 5 mcg/kg/hr TITR KRYSTAL 32.25 mls/hr Administration Protocol 1 MCG/KG/HR Nicardipine HCl 50 mg/ Sodium 250 mls @ 25 mls/hr 12/03/20 08:00 12/04/20 03:26 Chloride IV 0 mg/hr TITR KRYSTAL 0 mls/hr Titration Protocol 5 MG/HR Azithromycin 500 mg in 250 mls @ 250 mls/hr 12/04/20 01:00 12/04/20 00:50 Zithromax/Ns IV 250 mls/hr Q24HR KRYSTAL Administration Lorazepam 2 mg 11/29/20 12:00 12/03/20 02:34 Lorazepam 2 Mg/Ml Vial IV 2 mg Q4H PRN Administration Agitation Midazolam HCl 2 mg 11/29/20 10:22 Midazolam 2 Mg/2 Ml Inj IV Q10MIN PRN Sedation Montelukast Sodium 10 mg 11/29/20 22:00 12/02/20 22:09 Montelukast 10 Mg Tab PO 10 mg HS KRYSTAL Administration Multi-Ingred Cream/Lotion/Oil/Oint 1 applic 12/01/20 08:54 Mineral Oil/Petrolatum, White Ophth Oint 3.5 Gm OU Q4HR PRN Dry Eye(s) Senna/Docusate Sodium 1 tab 11/29/20 10:00 12/03/20 23:10 Sennosides/Docusate Sodium 8.6/50 Mg Tab FEEDTUBE 1 tab BID KRYSTAL Administration Simple Syrup 15 ml 11/29/20 15:23 Simple Syrup 15 Ml FEEDTUBE PRN PRN Hypoglycemia Simple Syrup 30 ml 11/29/20 15:23 Simple Syrup 15 Ml FEEDTUBE PRN PRN Hypoglycemia Sodium Bicarbonate 325 mg 11/29/20 15:23 Sodium Bicarbonate 325 Mg Tab FEEDTUBE PRN PRN For Clogged Feeding Tube Nutrition/Malnutrition Assess - Dietary Evaluation Nutrition/Malnutrition Findings: Nutrition Notes Start: 11/30/20 09:03 Freq: Status: Active Protocol: Document 12/03/20 12:44 SG (Rec: 12/03/20 12:50 SG [id number]) Nutrition Notes Initial or Follow up Brief Note Height 5 ft 6 in Weight 132.4 kg [place] Body Weight (kg) 59.09 BMI 47.1 Subjective/Other Information Per RN pt TF was running at goal prior to patient having nausea and abdominal pain. TF temporarily stopped and will be restarted per tolerance. #1 Nutrition Diagnosis Inadequate oral intake Etiology Allergic reaction and ARF As Evidenced by Signs and Symptoms Pt on mechanical ventilator Diagnosis Progress(for reassessment Continues documentation) Is patient on ventilator? Yes Is Patient Ambulatory and/or Out of Bed No REE-([place]conf[place]) 0105.197 Nutrition Intervention Follow-Up By: 12/05/20 Additional Comments F/u for TF at goal/tolerance and respiratory status
[2020-12-04] MEDS: FAMOTIDINE 20 MG/2 ML INJ IV SCH ×2 (09:43→21:58)
[2020-12-04] MEDS: GABAPENTIN 500 MG/10 ML ORAL LIQD PO SCH ×2 (09:44→21:56)
[2020-12-04] MEDS: SENNOSIDES/DOCUSATE SODIUM 8.6/50 MG TAB FEEDTUBE SCH ×2 (10:24→21:56)
[2020-12-04 10:32] LABS: Band Neutrophils # (Manual) 3.5 K/mm3; Platelet Clumps 1+; RBC Morphology Normal; Total Cells Counted 100
[2020-12-04 11:32] LABS: C-Reactive Protein 34.3 mg/dL (0.00-1.30)
--- NOTE | 2020-12-04 13:21 | Consultation ---
History of Present Illness - Reason for Consult Consult date: 12/04/20 - History of Present Illness 40-year-old female past medical history asthma, migraines, hypertension, morbid obesity presented to the hospital with what she believed to be allergic reaction. She presented in respiratory distress, and was intubated and sedated on day of presentation. In the past she has had over 40 intubations and has had previous tracheostomies due to her allergic reactions. 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 Reportedly she has been Covid positive for over 20 days according to her . Febrile to 102.1 with a white count 21.7. Decreased renal function with EGFR 33 in the setting of recent NINI. Inflammatory markers are elevated. Blood sputum cultures no growth so far. Currently on ceftriaxone and azithromycin. Imaging personally reviewed: Chest x-ray: Extensive bilateral airspace disease Past History Past Medical History: hypertension, migraines, other (Anxiety disorder, peripheral neuropathy, alpha gal syndrome, hereditary angioedema) Past Surgical History: hysterectomy, Other (History of tracheostomy) Social history: denies: smoking, alcohol abuse, prescription drug abuse Family history: no significant family history Medications and Allergies Allergies Allergy/AdvReac Type Severity Reaction Status Date / Time ciprofloxacin Allergy Unknown Verified 03/12/16 14:14 gelatin Allergy Unknown Verified 03/12/16 14:14 levofloxacin [From Levaquin] Allergy Unknown Verified 03/12/16 14:14 methylprednisolone Allergy Anaphylaxis Verified 11/30/20 16:25 [From Solu-Medrol] Pork/Porcine Containing Allergy Unknown Verified 03/12/16 14:14 Products Home Medications Medication Instructions Recorded Confirmed Last Taken Type EPINEPHrine [Epipen 2-Sam] 0.3 mg IJ ONCE #1 auto.injct 03/12/16 09/24/16 09/14/16 Rx 0.3mg Gabapentin 600 mg PO BID 09/24/16 09/24/16 09/22/16 22:00 History ALPRAZolam [Xanax TAB] 1 mg PO PRN PRN 09/25/16 09/25/16 Unknown History Ambien 10 mg PO HS 09/25/16 09/25/16 Unknown History Doxepin 75 mg PO BID 09/25/16 09/25/16 Unknown History Hydrochlorothiazide 25 mg PO DAILY 09/25/16 09/25/16 Unknown History Montelukast [Singulair] 10 mg PO HS 09/25/16 09/25/16 Unknown History Active Meds: Active Medications Acetaminophen (Acetaminophen 325 Mg Tab) 650 mg PO Q6H PRN PRN Reason: Fever >101 Last Admin: 12/04/20 01:10 Dose: 650 mg Documented by: Albuterol (Albuterol 2.5 Mg/3 Ml Nebu) 2.5 mg IH Q4HRT PRN PRN Reason: Shortness Of Breath Albuterol/Ipratropium (Ipratropium/Albuterol Sulfate 3 Ml Ampul.Neb) 1 ampul IH Q6HRT [facility] Last Admin: 12/04/20 13:11 Dose: 1 ampul Documented by: Alprazolam (Alprazolam 1 Mg Tab) 1 mg PO Q6H PRN PRN Reason: Anxiety Lipase/Protease/Amylase (Lipase 10,500/Protease 25,000/Amylase 43,750 (Units) Dr Cap) 1 each FEEDTUBE PRN PRN PRN Reason: For Clogged Feeding Tube Diphenhydramine HCl (Diphenhydramine 50 Mg/Ml Vial) 25 mg IV Q6H [facility] Last Admin: 12/04/20 09:44 Dose: 25 mg Documented by: Famotidine (Famotidine 20 Mg/2 Ml Inj) 20 mg IV BID [facility] Last Admin: 12/04/20 09:43 Dose: 20 mg Documented by: Fentanyl (Fentanyl 100 Mcg/2 Ml Inj) 50 mcg IV Q10MIN PRN PRN Reason: ANALGESIA Fondaparinux (Fondaparinux 2.5 Mg/0.5 Ml Inj) 2.5 mg SUB-Q Q24H [facility] Last Admin: 12/03/20 23:09 Dose: 2.5 mg Documented by: Gabapentin (Gabapentin 500 Mg/10 Ml Oral Liqd) 600 mg PO BID [facility] Last Admin: 12/04/20 09:44 Dose: 600 mg Documented by: Hydrophilic Ointment (Lip Therapy Vaseline) 1 applic TP Q2HR PRN PRN Reason: Dry Lips Midazolam HCl 100 mg/ Sodium (Chloride) 100 mls @ 2 mls/hr IV TITR [facility]; Protocol Last Admin: 12/03/20 20:56 Dose: 2 mg/hr, 2 mls/hr Documented by: Fentanyl Citrate (Fentanyl Drip Premix) 2,000 mcg in 100 mls @ 6.45 mls/hr IV TITR [facility]; Protocol Last Titration: 12/04/20 12:45 Dose: 3 mcg/kg/hr, 19.35 mls/hr Documented by: Nicardipine HCl 50 mg/ Sodium (Chloride) 250 mls @ 25 mls/hr IV TITR [facility]; Protocol Last Titration: 12/04/20 03:26 Dose: 0 mg/hr, 0 mls/hr Documented by: Azithromycin (Zithromax/Ns) 500 mg in 250 mls @ 250 mls/hr IV Q24HR [facility] Last Admin: 12/04/20 09:44 Dose: 250 mls/hr Documented by: Ceftriaxone Sodium (Rocephin/Ns 2 Gm/100 Ml) 2 gm in 100 mls @ 200 mls/hr IV Q24H [facility]; Protocol Lorazepam (Lorazepam 2 Mg/Ml Vial) 2 mg IV Q4H PRN PRN Reason: Agitation Last Admin: 12/03/20 02:34 Dose: 2 mg Documented by: Midazolam HCl (Midazolam 2 Mg/2 Ml Inj) 2 mg IV Q10MIN PRN PRN Reason: Sedation Montelukast Sodium (Montelukast 10 Mg Tab) 10 mg PO HS [facility] Last Admin: 12/02/20 22:09 Dose: 10 mg Documented by: Multi-Ingred Cream/Lotion/Oil/Oint (Mineral Oil/Petrolatum, White Ophth Oint 3.5 Gm) 1 applic OU Q4HR PRN PRN Reason: Dry Eye(s) Senna/Docusate Sodium (Sennosides/Docusate Sodium 8.6/50 Mg Tab) 1 tab FEEDTUBE BID [facility] Last Admin: 12/04/20 10:24 Dose: 1 tab Documented by: Simple Syrup (Simple Syrup 15 Ml) 15 ml FEEDTUBE PRN PRN PRN Reason: Hypoglycemia Simple Syrup (Simple Syrup 15 Ml) 30 ml FEEDTUBE PRN PRN PRN Reason: Hypoglycemia Sodium Bicarbonate (Sodium Bicarbonate 325 Mg Tab) 325 mg FEEDTUBE PRN PRN PRN Reason: For Clogged Feeding Tube Physical Examination - Physical Exam Narrative exam: Physical exam deferred to reduce risk of transmission of COVID-19. Please refer to primary team's note. - Constitutional Vitals: Vital Signs Temp Pulse Resp BP Pulse Ox 99.4 F 118 H 18 112/59 98 12/04/20 12:29 12/04/20 13:11 12/04/20 13:11 12/04/20 12:30 12/04/20 12:30 Temperature -Last 24 Hours Temperature 99.4 F Temperature 96.0 F Temperature 101.5 F Temperature 101.3 F Temperature 102.1 F Temperature 101.4 F Temperature 101.4 F Results - Labs CBC & Chem 7: 12/04/20 05:40 12/04/20 05:40 Labs: Abnormal lab results 12/03/20 12/04/20 12/04/20 Range/Units 08:00 03:32 05:40 WBC 21.7 H (4.5-11.0) K/mm3 RDW 18.2 H (13.2-15.2) % Seg Neuts % (Manual) 74.0 H (40.0-70.0) % Lymphocytes % (Manual) 2.0 L (13.4-35.0) % Seg Neutrophils # Man 16.1 H (1.8-7.7) K/mm3 Lymphocytes # (Manual) 0.4 L (1.2-5.4) K/mm3 Monocytes # (Manual) 1.1 H (0.0-0.8) K/mm3 Basophils # (Manual) 0.2 H (0.0-0.1) K/mm3 D-Dimer (0-234) ng/mlDDU POC ABG pCO2 54.6 H (32.0-48.0) mmHg POC ABG pO2 78.6 L (83-108) mmHg ABG Hemoglobin 11.4 L (12.0-17.5) ABG Sodium 130.2 L (136.0-145.0) mmol/L ABG Glucose 164 H (65-95) mg/dL Carboxyhemoglobin 0.4 L (0.5-1.5) BUN (7-17) mg/dL Creatinine (0.6-1.2) mg/dL Glucose (65-100) mg/dL Ferritin (10.0-200.0) ng/mL Lactate Dehydrogenase (91-180) units/L C-Reactive Protein (0.00-1.30) mg/dL Total Protein (6.3-8.2) g/dL Albumin (3.9-5) g/dL Arterial Blood Glucose 164 H (65-95) mg/dL Urine WBC (Auto) (0.0-6.0) /HPF Coronavirus (PCR) Positive A (Negative) 12/04/20 12/04/20 12/04/20 Range/Units 05:40 07:30 10:41 WBC (4.5-11.0) K/mm3 RDW (13.2-15.2) % Seg Neuts % (Manual) (40.0-70.0) % Lymphocytes % (Manual) (13.4-35.0) % Seg Neutrophils # Man (1.8-7.7) K/mm3 Lymphocytes # (Manual) (1.2-5.4) K/mm3 Monocytes # (Manual) (0.0-0.8) K/mm3 Basophils # (Manual) (0.0-0.1) K/mm3 D-Dimer 1838.21 H (0-234) ng/mlDDU POC ABG pCO2 (32.0-48.0) mmHg POC ABG pO2 (83-108) mmHg ABG Hemoglobin (12.0-17.5) ABG Sodium (136.0-145.0) mmol/L ABG Glucose (65-95) mg/dL Carboxyhemoglobin (0.5-1.5) BUN 26 H (7-17) mg/dL Creatinine 1.7 H D (0.6-1.2) mg/dL Glucose 157 H (65-100) mg/dL Ferritin (10.0-200.0) ng/mL Lactate Dehydrogenase (91-180) units/L C-Reactive Protein (0.00-1.30) mg/dL Total Protein 6.2 L (6.3-8.2) g/dL Albumin 2.6 L (3.9-5) g/dL Arterial Blood Glucose (65-95) mg/dL Urine WBC (Auto) > 182.0 H (0.0-6.0) /HPF Coronavirus (PCR) (Negative) 12/04/20 12/04/20 Range/Units 10:41 10:41 WBC (4.5-11.0) K/mm3 RDW (13.2-15.2) % Seg Neuts % (Manual) (40.0-70.0) % Lymphocytes % (Manual) (13.4-35.0) % Seg Neutrophils # Man (1.8-7.7) K/mm3 Lymphocytes # (Manual) (1.2-5.4) K/mm3 Monocytes # (Manual) (0.0-0.8) K/mm3 Basophils # (Manual) (0.0-0.1) K/mm3 D-Dimer (0-234) ng/mlDDU POC ABG pCO2 (32.0-48.0) mmHg POC ABG pO2 (83-108) mmHg ABG Hemoglobin (12.0-17.5) ABG Sodium (136.0-145.0) mmol/L ABG Glucose (65-95) mg/dL Carboxyhemoglobin (0.5-1.5) BUN (7-17) mg/dL Creatinine (0.6-1.2) mg/dL Glucose (65-100) mg/dL Ferritin 399.0 H (10.0-200.0) ng/mL Lactate Dehydrogenase 386 H (91-180) units/L C-Reactive Protein 34.30 H (0.00-1.30) mg/dL Total Protein (6.3-8.2) g/dL Albumin (3.9-5) g/dL Arterial Blood Glucose (65-95) mg/dL Urine WBC (Auto) (0.0-6.0) /HPF Coronavirus (PCR) (Negative) Assessment and Plan Cultures: Blood culture no growth so far A/P: 40-year-old female past medical history of severe allergic reactions, morbid obesity, hypertension admitted with COVID-19 and respiratory failure #COVID-19: has been positive for >3 weeks. No therapy indicated at this time #Bilateral pneumonia: Possible secondary infection, recent development with new leukocytosis and fevers. Procalcitonin likely not helpful in the setting of NINI. #Acute sepsis: Present leukocytosis and fevers. Possibly secondary to pneumonia. #Acute hypoxic respiratory failure: On the vent #Severe allergic history Recs: -Escalated to cefepime given time spent in ICU -Avoiding vancomycin for now due to NINI, start if blood cultures turn positive. -Monitor renal function -No acute Covid therapy indicated given duration since onset Thank you for the consult, we will continue to follow. MD Mirian [facility] ([facility] O: [phone] F: [phone]
--- NOTE | 2020-12-04 13:36 | Progress Note ---
Assessment and Plan Acute hypoxemic respiratory failure Angioedema Morbid obesity Mild leukocytosis Hypertension. H/O alpha-gal syndrome - continue anti-infectives per ID recommendations - COVID-19 test positive - await devol transfer - she is a difficult airway clinically, historically and anatomically and i will continue steroids and antihistamine therapy and ensure she has a persistent cuff leak prior to extubation as she does have a # [address] - continue to wean supplemental oxygen for target O2 sat's > 90% acutely - taper Solumedrol and continue Pepcid, Benadryl - continue care as below otherwise; - continue Daily SAT and SBT assessment as tolerated - VAP bundle addressed - continue lung protective strategies - continue bronchodilators with pulmonary hygiene per RT - wean per pulmonary driven protocols otherwise - continue accuchecks with glycemic control per SSI (While critically ill target blood glucose of 140-180 mg/dL; avoid hypoglycemia) - sedation prn for target RASS -1 to -2 - avoid nephrotoxins, renally dose all medications - continue to avoid benzodiazepine's, reduce the possibility of delirium - AB's per ID rec's - prn analgesia per CPOT score - Maintenance of sleep-wake cycle, avoid delirium - continue enteral nutritional support at goal rate as tolerated - G.I. & VTE prophylaxis - PT/OT/ROM exercises - continue mobility protocols for pressure ulcer prophylaxis - Monitor hemodynamics closely - continue other care per attending / other consultants - discharge planning ongoing concurrently COVID SPECIFIC INTERVENTIONS - Continue contact and airborne isolation - Remdesivir as per ID/Pulmonary developed protocols (not indicated re: duration of illness) - continue systemic steroids for severe COVID-19 infection empirically (On solumedrol re: Angioedema) - follow repeat COVID tests results - zinc and vitamin C supplementation - Monitor inflammatory markers per facility protocol - ferritin, Ddimer, CRP - therapeutic anticoagulation per system Protocol based on d-dimer and clinical considerations (VTE prophylaxis) .... Re-evaluate in am & prn CONDITION: CRITICAL PROGNOSIS: GUARDED CODE STATUS: FULL CODE The high probability of a clinically significant, sudden or life-threatening deterioration of the [respiratory, cardiovascular & immunologic] system(s) required my full and direct attention, intervention and personal management. The aggregate critical care time was [35] minutes without overlap. Time includes spent on; [x] Data Review and interpretation [x] Patient assessment and monitoring of vital signs [x] Documentation [x] Medication orders and management Subjective Date of service: 12/04/20 Principal diagnosis: Acute Hypoxemic Respiratory Failure; Angioedema;Obesity; leukocytosis Interval history: Patient is seen today for: Acute hypoxemic respiratory failure; Angioedema; Morbid obesity; leukocytosis; HTN; H/O alpha-gal syndrome Seen and examined at bedside; 24hour events reviewed; nursing and respiratory care staff consulted; no adverse overnight events reported to me; resting in bed; remains on MVS; FiO2 down to 55%; sedated on Fentanyl; no emesis or overt a spiration; afebrile Objective Vital Signs - 12hr 12/04/20 12/04/20 12/04/20 01:41 02:00 02:30 Temperature Pulse Rate 114 H 111 H Pulse Rate [ From Monitor] Pulse Rate [ 125 H Throughout] Respiratory 17 15 Rate Respiratory 18 Rate [ Throughout] Blood Pressure 122/49 100/46 O2 Sat by Pulse 94 92 Oximetry 12/04/20 12/04/20 12/04/20 03:00 03:30 03:40 Temperature 101.3 F H Pulse Rate 107 H 107 H Pulse Rate [ From Monitor] Pulse Rate [ Throughout] Respiratory 15 16 Rate Respiratory Rate [ Throughout] Blood Pressure 98/47 108/40 O2 Sat by Pulse 92 93 Oximetry 12/04/20 12/04/20 12/04/20 04:00 04:30 04:47 Temperature Pulse Rate 108 H 109 H 111 H Pulse Rate [ 109 H From Monitor] Pulse Rate [ Throughout] Respiratory 15 16 Rate Respiratory Rate [ Throughout] Blood Pressure 102/52 115/42 O2 Sat by Pulse 93 94 94 Oximetry 12/04/20 12/04/20 12/04/20 05:00 05:30 06:00 Temperature Pulse Rate 113 H 114 H 114 H Pulse Rate [ From Monitor] Pulse Rate [ Throughout] Respiratory 16 12 18 Rate Respiratory Rate [ Throughout] Blood Pressure 118/52 111/54 106/55 O2 Sat by Pulse 94 94 92 Oximetry 12/04/20 12/04/20 12/04/20 06:30 07:00 07:30 Temperature 101.5 F H Pulse Rate 117 H 118 H 118 H Pulse Rate [ From Monitor] Pulse Rate [ Throughout] Respiratory 18 19 19 Rate Respiratory Rate [ Throughout] Blood Pressure 104/56 134/58 121/61 O2 Sat by Pulse 94 95 96 Oximetry 12/04/20 12/04/20 12/04/20 08:00 08:28 08:30 Temperature Pulse Rate 119 H 116 H 120 H Pulse Rate [ 119 H From Monitor] Pulse Rate [ 119 H Throughout] Respiratory 21 21 Rate Respiratory 20 Rate [ Throughout] Blood Pressure 120/63 134/62 124/61 O2 Sat by Pulse 97 98 96 Oximetry 12/04/20 12/04/20 12/04/20 09:00 09:30 10:00 Temperature Pulse Rate 115 H 121 H 122 H Pulse Rate [ From Monitor] Pulse Rate [ Throughout] Respiratory 18 25 H 22 Rate Respiratory Rate [ Throughout] Blood Pressure 134/62 141/63 151/64 O2 Sat by Pulse 99 97 96 Oximetry 12/04/20 12/04/20 12/04/20 10:30 11:00 11:30 Temperature Pulse Rate 122 H 122 H 123 H Pulse Rate [ From Monitor] Pulse Rate [ Throughout] Respiratory 21 21 25 H Rate Respiratory Rate [ Throughout] Blood Pressure 135/59 128/58 123/60 O2 Sat by Pulse 95 95 95 Oximetry 12/04/20 12/04/20 12/04/20 12:00 12:01 12:25 Temperature 96.0 F L Pulse Rate 121 H 126 H Pulse Rate [ 126 H From Monitor] Pulse Rate [ Throughout] Respiratory 24 24 Rate Respiratory Rate [ Throughout] Blood Pressure 123/60 147/74 O2 Sat by Pulse 97 97 Oximetry 12/04/20 12/04/20 12/04/20 12:29 12:30 13:11 Temperature 99.4 F Pulse Rate 119 H Pulse Rate [ From Monitor] Pulse Rate [ 118 H Throughout] Respiratory 19 Rate Respiratory 18 Rate [ Throughout] Blood Pressure 112/59 O2 Sat by Pulse 98 Oximetry Constitutional: no acute distress, other (kianna g obese female without increased respiratory effort at rest on MVS) Eyes: non-icteric ENT: oropharynx moist, other (ETT 23 cm JOSELYN) Neck: supple, no lymphadenopathy, no JVD, other (large circumference; + healed trach scar) Effort: mildly labored Ascultation: Bilateral: diminished breath sounds, rales (coarse ) Percussion: Bilateral: not dull Cardiovascular: regular rate and rhythm Gastrointestinal: normoactive bowel sounds, soft, non-tender, non-distended Integumentary: normal Extremities: no cyanosis, no edema, pink and warm, pulses normal Neurologic: non-focal exam, pupils equal and round, CN II-XII normal, motor strength normal and Psychiatric: other (sedated) CBC and BMP: 12/04/20 05:40 12/04/20 05:40 ABG, PT/INR, D-dimer: ABG ABG pH 7.337 (7.320-7.450) 12/04/20 03:32 POC ABG pCO2 54.6 mmHg (32.0-48.0) H 12/04/20 03:32 POC ABG pO2 78.6 mmHg (83-108) L 12/04/20 03:32 POC ABG HCO3 28.6 12/04/20 03:32 ABG O2 Saturation 95.4 (0-100) 12/04/20 03:32 PT/INR, D-dimer D-Dimer 1838.21 ng/mlDDU (0-234) H 12/04/20 10:41 Abnormal lab findings: Abnormal Labs 11/29/20 11/29/20 11/29/20 07:48 07:48 07:48 WBC 11.3 H RDW 18.0 H Seg Neuts % (Manual) Lymphocytes % (Manual) Seg Neutrophils # 7.9 H Seg Neutrophils # Man Lymphocytes # (Manual) Monocytes # (Manual) Basophils # (Manual) D-Dimer ABG pH POC ABG pCO2 POC ABG pO2 ABG Hemoglobin ABG Oxyhemoglobin ABG Sodium ABG Potassium ABG Glucose Carboxyhemoglobin Sodium 135 L BUN Creatinine Glucose 204 H POC Glucose Ferritin Lactate Dehydrogenase Total Creatine Kinase CK-MB (CK-2) C-Reactive Protein Total Protein Albumin 3.7 L Arterial Blood Glucose Urine WBC (Auto) Coronavirus (PCR) 11/29/20 11/30/20 11/30/20 11:37 04:27 11:22 WBC RDW Seg Neuts % (Manual) Lymphocytes % (Manual) Seg Neutrophils # Seg Neutrophils # Man Lymphocytes # (Manual) Monocytes # (Manual) Basophils # (Manual) D-Dimer ABG pH 7.318 L POC ABG pCO2 POC ABG pO2 76.1 L 196.4 H ABG Hemoglobin 11.96 L ABG Oxyhemoglobin 92.4 L 98.5 H ABG Sodium 133.7 L ABG Potassium 5.0 H ABG Glucose 171 H Carboxyhemoglobin 2.5 H Sodium BUN Creatinine Glucose POC Glucose 157 H Ferritin Lactate Dehydrogenase Total Creatine Kinase CK-MB (CK-2) C-Reactive Protein Total Protein Albumin Arterial Blood Glucose 171 H Urine WBC (Auto) Coronavirus (PCR) 11/30/20 11/30/20 11/30/20 14:12 17:19 23:42 WBC RDW Seg Neuts % (Manual) Lymphocytes % (Manual) Seg Neutrophils # Seg Neutrophils # Man Lymphocytes # (Manual) Monocytes # (Manual) Basophils # (Manual) D-Dimer ABG pH POC ABG pCO2 POC ABG pO2 ABG Hemoglobin ABG Oxyhemoglobin ABG Sodium ABG Potassium ABG Glucose Carboxyhemoglobin Sodium BUN Creatinine Glucose POC Glucose 135 H 121 H Ferritin Lactate Dehydrogenase Total Creatine Kinase 1132 H CK-MB (CK-2) 14.6 H C-Reactive Protein Total Protein Albumin Arterial Blood Glucose Urine WBC (Auto) Coronavirus (PCR) 12/01/20 12/01/20 12/01/20 03:30 04:21 06:16 WBC RDW Seg Neuts % (Manual) Lymphocytes % (Manual) Seg Neutrophils # Seg Neutrophils # Man Lymphocytes # (Manual) Monocytes # (Manual) Basophils # (Manual) D-Dimer ABG pH POC ABG pCO2 POC ABG pO2 37.6 L 76.2 L ABG Hemoglobin 10.4 L 10.8 L ABG Oxyhemoglobin 76.4 L 93.7 L ABG Sodium 112.8 L 110.9 L ABG Potassium ABG Glucose 103 H 107 H Carboxyhemoglobin Sodium BUN Creatinine Glucose POC Glucose 129 H Ferritin Lactate Dehydrogenase Total Creatine Kinase CK-MB (CK-2) C-Reactive Protein Total Protein Albumin Arterial Blood Glucose 103 H 107 H Urine WBC (Auto) Coronavirus (PCR) 12/02/20 12/02/20 12/02/20 04:00 12:02 17:10 WBC RDW Seg Neuts % (Manual) Lymphocytes % (Manual) Seg Neutrophils # Seg Neutrophils # Man Lymphocytes # (Manual) Monocytes # (Manual) Basophils # (Manual) D-Dimer ABG pH 7.306 L POC ABG pCO2 58.0 H POC ABG pO2 58.5 L ABG Hemoglobin 11.4 L ABG Oxyhemoglobin 86.9 L ABG Sodium 124.7 L ABG Potassium ABG Glucose 118 H Carboxyhemoglobin Sodium BUN Creatinine Glucose POC Glucose 143 H 134 H Ferritin Lactate Dehydrogenase Total Creatine Kinase CK-MB (CK-2) C-Reactive Protein Total Protein Albumin Arterial Blood Glucose 118 H Urine WBC (Auto) Coronavirus (PCR) 12/03/20 12/03/20 12/04/20 05:10 08:00 03:32 WBC RDW Seg Neuts % (Manual) Lymphocytes % (Manual) Seg Neutrophils # Seg Neutrophils # Man Lymphocytes # (Manual) Monocytes # (Manual) Basophils # (Manual) D-Dimer ABG pH 7.272 L POC ABG pCO2 60.1 H 54.6 H POC ABG pO2 82.8 L 78.6 L ABG Hemoglobin 11.4 L ABG Oxyhemoglobin ABG Sodium 132.2 L 130.2 L ABG Potassium ABG Glucose 166 H 164 H Carboxyhemoglobin 0.4 L Sodium BUN Creatinine Glucose POC Glucose Ferritin Lactate Dehydrogenase Total Creatine Kinase CK-MB (CK-2) C-Reactive Protein Total Protein Albumin Arterial Blood Glucose 166 H 164 H Urine WBC (Auto) Coronavirus (PCR) Positive A 12/04/20 12/04/20 12/04/20 05:40 05:40 07:30 WBC 21.7 H RDW 18.2 H Seg Neuts % (Manual) 74.0 H Lymphocytes % (Manual) 2.0 L Seg Neutrophils # Seg Neutrophils # Man 16.1 H Lymphocytes # (Manual) 0.4 L Monocytes # (Manual) 1.1 H Basophils # (Manual) 0.2 H D-Dimer ABG pH POC ABG pCO2 POC ABG pO2 ABG Hemoglobin ABG Oxyhemoglobin ABG Sodium ABG Potassium ABG Glucose Carboxyhemoglobin Sodium BUN 26 H Creatinine 1.7 H D Glucose 157 H POC Glucose Ferritin Lactate Dehydrogenase Total Creatine Kinase CK-MB (CK-2) C-Reactive Protein Total Protein 6.2 L Albumin 2.6 L Arterial Blood Glucose Urine WBC (Auto) > 182.0 H Coronavirus (PCR) 12/04/20 12/04/20 12/04/20 10:41 10:41 10:41 WBC RDW Seg Neuts % (Manual) Lymphocytes % (Manual) Seg Neutrophils # Seg Neutrophils # Man Lymphocytes # (Manual) Monocytes # (Manual) Basophils # (Manual) D-Dimer 1838.21 H ABG pH POC ABG pCO2 POC ABG pO2 ABG Hemoglobin ABG Oxyhemoglobin ABG Sodium ABG Potassium ABG Glucose Carboxyhemoglobin Sodium BUN Creatinine Glucose POC Glucose Ferritin 399.0 H Lactate Dehydrogenase 386 H Total Creatine Kinase CK-MB (CK-2) C-Reactive Protein 34.30 H Total Protein Albumin Arterial Blood Glucose Urine WBC (Auto) Coronavirus (PCR) Chest x-ray: pending Allied health notes reviewed: nursing
--- NOTE | 2020-12-04 14:23 | XRay Report ---
CHEST 1 VIEW 12/04/2020 1:57 PM INDICATION / CLINICAL INFORMATION: Pneumonia; Atelectasis. COMPARISON: 12/03/2020 FINDINGS: SUPPORT DEVICES: Stable, satisfactory device positioning. HEART / MEDIASTINUM: Stable. LUNGS / PLEURA: Bilateral airspace disease is improved, most notably in the right upper lobe and left upper lobe. Mild persistent opacities remain. No pneumothorax. ADDITIONAL FINDINGS: No significant additional findings. IMPRESSION: 1. Interval improvement. Signer Name: Everton Vallejo MD Signed: 12/04/2020 2:19 PM Workstation Name: [id number]
[2020-12-04] MEDS: CEFEPIME/NS 2 GM/100 ML 2 GM/100 ML BAG IV SCH (15:41)
[2020-12-04] MEDS: MONTELUKAST 10 MG TAB PO SCH (21:57)
[2020-12-04] MEDS: ASCORBIC ACID 500 MG TAB PO SCH (21:58)
[2020-12-04] MEDS: FONDAPARINUX 2.5 MG/0.5 ML INJ SUB-Q SCH (21:58)
[2020-12-04] MEDS ORDERED: methylPREDNISolone Sod Succinate 40 MG/1 ML INJ IV SCH (22:00)
[2020-12-04] MEDS ORDERED: cefTRIAXone/NS 2 GM/100 ML 2 GM/100 ML BAG IV SCH (23:00)
[2020-12-05] MEDS: fentaNYL DRIP Premix 2,000 MCG/100 ML BAG IV SCH ×4 (03:11→21:34)
[2020-12-05] MEDS: CEFEPIME/NS 2 GM/100 ML 2 GM/100 ML BAG IV SCH ×2 (03:12→15:54)
[2020-12-05] MEDS: IPRATROPIUM/ALBUTEROL SULFATE 3 ML AMPUL.NEB IH SCH ×4 (03:52→20:33)
[2020-12-05] MEDS: diphenhydrAMINE 50 MG/ML VIAL IV SCH ×4 (06:26→21:35)
[2020-12-05] MEDS: ZINC SULFATE 220 MG CAP PO SCH (09:16)
[2020-12-05] MEDS: FAMOTIDINE 20 MG/2 ML INJ IV SCH ×2 (09:16→21:35)
[2020-12-05] MEDS: GABAPENTIN 500 MG/10 ML ORAL LIQD PO SCH ×2 (09:16→21:32)
[2020-12-05] MEDS: ASCORBIC ACID 500 MG TAB PO SCH ×2 (09:16→21:36)
[2020-12-05] MEDS: SENNOSIDES/DOCUSATE SODIUM 8.6/50 MG TAB FEEDTUBE SCH ×2 (09:17→21:36)
[2020-12-05] MEDS ORDERED: DEXTROSE 50% IN WATER (25GM) 50 ML SYRINGE IV PRN (10:34)
[2020-12-05 11:41] LABS: Basophils # (Auto) 0.1 K/mm3 (0.0-0.1); Basophils % (Auto) 0.4 % (0.0-1.8); Eosinophils # (Auto) 0.3 K/mm3 (0.0-0.4); Eosinophils % (Auto) 2.2 % (0.0-4.3); Hematocrit 30.5 % (30.3-42.9); Hemoglobin 10.1 gm/dl (10.1-14.3); Lymphocytes # (Auto) 1.7 K/mm3 (1.2-5.4); Lymphocytes % (Auto) 13.1 % (13.4-35.0); Mean Corpuscular HGB Conc 33 % (30-34); Mean Corpuscular Volume 84 fl (79-97); Monocytes # (Auto) 0.9 K/mm3 (0.0-0.8); Monocytes % (Auto) 6.7 % (0.0-7.3); Platelet Count 189 K/mm3 (140-440); Red Blood Count 3.61 M/mm3 (3.65-5.03); Red Cell Distribution Width 18.8 % (13.2-15.2)
--- NOTE | 2020-12-05 11:41 | Progress Note ---
Assessment and Plan Acute hypoxemic respiratory failure Angioedema Morbid obesity Mild leukocytosis Hypertension. H/O alpha-gal syndrome (care plan and progress discussed with her Manoj including the fact that we are still awaiting a bed at [place]) - wean FiO2 to 40% then peep to 8 cm H2O slowly for sat's > 92% - continue anti-infectives per ID recommendations - COVID-19 test positive - await [facility] transfer - she is a difficult airway clinically, historically and anatomically and i will continue steroids and antihistamine therapy and ensure she has a persistent cuff leak prior to extubation as she does have a # 6.[address] - continue to wean supplemental oxygen for target O2 sat's > 92% acutely - taper Solumedrol and continue Pepcid, Benadryl - continue care as below otherwise; - continue Daily SAT and SBT assessment as tolerated - VAP bundle addressed - continue lung protective strategies - continue bronchodilators with pulmonary hygiene per RT - wean per pulmonary driven protocols otherwise - continue accuchecks with glycemic control per SSI (While critically ill target blood glucose of 140-180 mg/dL; avoid hypoglycemia) - sedation prn for target RASS -1 to -2 - avoid nephrotoxins, renally dose all medications - continue to avoid benzodiazepine's, reduce the possibility of delirium - AB's per ID rec's - prn analgesia per CPOT score - Maintenance of sleep-wake cycle, avoid delirium - continue enteral nutritional support at goal rate as tolerated - G.I. & VTE prophylaxis - PT/OT/ROM exercises - continue mobility protocols for pressure ulcer prophylaxis - Monitor hemodynamics closely - continue other care per attending / other consultants - discharge planning ongoing concurrently COVID SPECIFIC INTERVENTIONS - Continue contact and airborne isolation - Remdesivir as per ID/Pulmonary developed protocols (not indicated re: duration of illness) - continue systemic steroids for severe COVID-19 infection empirically (no steroids re: COVID recovery status and h/o allergy to Solumedrol) - follow repeat COVID tests results - zinc and vitamin C supplementation - Monitor inflammatory markers per facility protocol - ferritin, Ddimer, CRP - therapeutic anticoagulation per system Protocol based on d-dimer and clinical considerations (VTE prophylaxis) .... Re-evaluate in am & prn CONDITION: CRITICAL PROGNOSIS: GUARDED CODE STATUS: FULL CODE The high probability of a clinically significant, sudden or life-threatening deterioration of the [respiratory, cardiovascular & immunologic] system(s) required my full and direct attention, intervention and personal management. The aggregate critical care time was [37] minutes without overlap. Time includes spent on; [x] Data Review and interpretation [x] Patient assessment and monitoring of vital signs [x] Documentation [x] Medication orders and management Subjective Date of service: 12/05/20 Principal diagnosis: Acute Hypoxemic Respiratory Failure; Angioedema;Obesity; leukocytosis Interval history: Patient is seen today for: Acute hypoxemic respiratory failure; Angioedema; Morbid obesity; leukocytosis; HTN; H/O alpha-gal syndrome Seen and examined at bedside; 24hour events reviewed; nursing and respiratory care staff consulted; no adverse overnight events reported to me; resting in bed; remains on MVS; pO2 improved and FiO2 reduced to 45%; peep remains at 12 though and i will begin weaning slowly; RUL consolidation improved on higher p eep Objective Vital Signs - 12hr 12/05/20 12/05/20 12/05/20 00:00 00:30 01:00 Temperature 100.9 F H Pulse Rate 118 H 116 H 116 H Pulse Rate [ Anterior Bilateral Throughout] Pulse Rate [ 117 H From Monitor] Pulse Rate [ Throughout] Respiratory 16 14 15 Rate Respiratory Rate [Anterior Bilateral Throughout] Respiratory Rate [ Throughout] Blood Pressure 140/75 143/72 139/72 O2 Sat by Pulse 95 97 98 Oximetry 12/05/20 12/05/20 12/05/20 01:30 02:00 02:30 Temperature Pulse Rate 118 H 118 H 120 H Pulse Rate [ Anterior Bilateral Throughout] Pulse Rate [ From Monitor] Pulse Rate [ Throughout] Respiratory 13 13 14 Rate Respiratory Rate [Anterior Bilateral Throughout] Respiratory Rate [ Throughout] Blood Pressure 150/72 149/75 137/71 O2 Sat by Pulse 97 97 97 Oximetry 12/05/20 12/05/20 12/05/20 03:00 03:30 03:43 Temperature 101.7 F H Pulse Rate 118 H 120 H Pulse Rate [ Anterior Bilateral Throughout] Pulse Rate [ From Monitor] Pulse Rate [ Throughout] Respiratory 14 17 Rate Respiratory Rate [Anterior Bilateral Throughout] Respiratory Rate [ Throughout] Blood Pressure 152/77 156/79 O2 Sat by Pulse 97 97 Oximetry 12/05/20 12/05/20 12/05/20 03:46 03:53 04:00 Temperature Pulse Rate 119 H 120 H Pulse Rate [ Anterior Bilateral Throughout] Pulse Rate [ 120 H From Monitor] Pulse Rate [ 120 H Throughout] Respiratory 17 Rate Respiratory Rate [Anterior Bilateral Throughout] Respiratory 22 Rate [ Throughout] Blood Pressure 158/77 144/76 O2 Sat by Pulse 97 98 Oximetry 12/05/20 12/05/20 12/05/20 04:30 05:00 05:30 Temperature Pulse Rate 116 H 116 H 120 H Pulse Rate [ Anterior Bilateral Throughout] Pulse Rate [ From Monitor] Pulse Rate [ Throughout] Respiratory 13 15 19 Rate Respiratory Rate [Anterior Bilateral Throughout] Respiratory Rate [ Throughout] Blood Pressure 131/69 133/82 139/80 O2 Sat by Pulse 98 98 98 Oximetry 12/05/20 12/05/20 12/05/20 06:00 06:30 07:00 Temperature Pulse Rate 117 H 120 H 119 H Pulse Rate [ Anterior Bilateral Throughout] Pulse Rate [ From Monitor] Pulse Rate [ Throughout] Respiratory 15 16 16 Rate Respiratory Rate [Anterior Bilateral Throughout] Respiratory Rate [ Throughout] Blood Pressure 139/82 134/61 135/65 O2 Sat by Pulse 98 99 97 Oximetry 12/05/20 12/05/20 12/05/20 07:30 08:00 08:08 Temperature Pulse Rate 120 H 119 H 120 H Pulse Rate [ 119 H Anterior Bilateral Throughout] Pulse Rate [ 119 H From Monitor] Pulse Rate [ Throughout] Respiratory 17 16 Rate Respiratory 20 Rate [Anterior Bilateral Throughout] Respiratory Rate [ Throughout] Blood Pressure 138/65 144/71 145/76 O2 Sat by Pulse 95 95 98 Oximetry 12/05/20 12/05/20 12/05/20 08:30 09:00 09:30 Temperature Pulse Rate 120 H 123 H 123 H Pulse Rate [ Anterior Bilateral Throughout] Pulse Rate [ From Monitor] Pulse Rate [ Throughout] Respiratory 16 18 20 Rate Respiratory Rate [Anterior Bilateral Throughout] Respiratory Rate [ Throughout] Blood Pressure 138/64 147/72 151/78 O2 Sat by Pulse 98 96 93 Oximetry 12/05/20 12/05/20 12/05/20 10:00 10:30 11:00 Temperature Pulse Rate 119 H 118 H 119 H Pulse Rate [ Anterior Bilateral Throughout] Pulse Rate [ From Monitor] Pulse Rate [ Throughout] Respiratory 18 19 20 Rate Respiratory Rate [Anterior Bilateral Throughout] Respiratory Rate [ Throughout] Blood Pressure 143/68 140/76 161/75 O2 Sat by Pulse 97 97 98 Oximetry 12/05/20 11:23 Temperature Pulse Rate 118 H Pulse Rate [ Anterior Bilateral Throughout] Pulse Rate [ From Monitor] Pulse Rate [ Throughout] Respiratory Rate Respiratory Rate [Anterior Bilateral Throughout] Respiratory Rate [ Throughout] Blood Pressure 150/75 O2 Sat by Pulse 98 Oximetry Constitutional: no acute distress, other (kianna g obese female without increased respiratory effort at rest on MVS) Eyes: non-icteric ENT: oropharynx moist, other (ETT 23 cm JOSELYN) Neck: supple, no lymphadenopathy, no JVD, other (large circumference; + healed trach scar) Effort: mildly labored Ascultation: Bilateral: diminished breath sounds, rales (coarse ) Percussion: Bilateral: not dull Cardiovascular: regular rate and rhythm Gastrointestinal: normoactive bowel sounds, soft, non-tender, non-distended Integumentary: normal Extremities: no cyanosis, no edema, pink and warm, pulses normal Neurologic: non-focal exam, pupils equal and round, CN II-XII normal, motor strength normal and Psychiatric: other (sedated) CBC and BMP: 12/05/20 11:04 12/05/20 11:04 ABG, PT/INR, D-dimer: ABG ABG pH 7.368 (7.320-7.450) 12/05/20 00:45 POC ABG pCO2 55.5 mmHg (32.0-48.0) H 12/05/20 00:45 POC ABG pO2 90.8 mmHg (83-108) 12/05/20 00:45 POC ABG HCO3 31.2 12/05/20 00:45 ABG O2 Saturation 97.3 (0-100) 12/05/20 00:45 PT/INR, D-dimer D-Dimer 1838.21 ng/mlDDU (0-234) H 12/04/20 10:41 Abnormal lab findings: Abnormal Labs 11/29/20 11/29/20 11/29/20 07:48 07:48 07:48 WBC 11.3 H RDW 18.0 H Seg Neuts % (Manual) Lymphocytes % (Manual) Seg Neutrophils # 7.9 H Seg Neutrophils # Man Lymphocytes # (Manual) Monocytes # (Manual) Basophils # (Manual) D-Dimer ABG pH POC ABG pCO2 POC ABG pO2 ABG Hemoglobin ABG Oxyhemoglobin ABG Sodium ABG Potassium ABG Glucose Carboxyhemoglobin Sodium 135 L BUN Creatinine Glucose 204 H POC Glucose Ferritin Lactate Dehydrogenase Total Creatine Kinase CK-MB (CK-2) C-Reactive Protein Total Protein Albumin 3.7 L Arterial Blood Glucose Urine WBC (Auto) Coronavirus (PCR) 11/29/20 11/30/20 11/30/20 11:37 04:27 11:22 WBC RDW Seg Neuts % (Manual) Lymphocytes % (Manual) Seg Neutrophils # Seg Neutrophils # Man Lymphocytes # (Manual) Monocytes # (Manual) Basophils # (Manual) D-Dimer ABG pH 7.318 L POC ABG pCO2 POC ABG pO2 76.1 L 196.4 H ABG Hemoglobin 11.96 L ABG Oxyhemoglobin 92.4 L 98.5 H ABG Sodium 133.7 L ABG Potassium 5.0 H ABG Glucose 171 H Carboxyhemoglobin 2.5 H Sodium BUN Creatinine Glucose POC Glucose 157 H Ferritin Lactate Dehydrogenase Total Creatine Kinase CK-MB (CK-2) C-Reactive Protein Total Protein Albumin Arterial Blood Glucose 171 H Urine WBC (Auto) Coronavirus (PCR) 11/30/20 11/30/20 11/30/20 14:12 17:19 23:42 WBC RDW Seg Neuts % (Manual) Lymphocytes % (Manual) Seg Neutrophils # Seg Neutrophils # Man Lymphocytes # (Manual) Monocytes # (Manual) Basophils # (Manual) D-Dimer ABG pH POC ABG pCO2 POC ABG pO2 ABG Hemoglobin ABG Oxyhemoglobin ABG Sodium ABG Potassium ABG Glucose Carboxyhemoglobin Sodium BUN Creatinine Glucose POC Glucose 135 H 121 H Ferritin Lactate Dehydrogenase Total Creatine Kinase 1132 H CK-MB (CK-2) 14.6 H C-Reactive Protein Total Protein Albumin Arterial Blood Glucose Urine WBC (Auto) Coronavirus (PCR) 12/01/20 12/01/20 12/01/20 03:30 04:21 06:16 WBC RDW Seg Neuts % (Manual) Lymphocytes % (Manual) Seg Neutrophils # Seg Neutrophils # Man Lymphocytes # (Manual) Monocytes # (Manual) Basophils # (Manual) D-Dimer ABG pH POC ABG pCO2 POC ABG pO2 37.6 L 76.2 L ABG Hemoglobin 10.4 L 10.8 L ABG Oxyhemoglobin 76.4 L 93.7 L ABG Sodium 112.8 L 110.9 L ABG Potassium ABG Glucose 103 H 107 H Carboxyhemoglobin Sodium BUN Creatinine Glucose POC Glucose 129 H Ferritin Lactate Dehydrogenase Total Creatine Kinase CK-MB (CK-2) C-Reactive Protein Total Protein Albumin Arterial Blood Glucose 103 H 107 H Urine WBC (Auto) Coronavirus (PCR) 12/02/20 12/02/20 12/02/20 04:00 12:02 17:10 WBC RDW Seg Neuts % (Manual) Lymphocytes % (Manual) Seg Neutrophils # Seg Neutrophils # Man Lymphocytes # (Manual) Monocytes # (Manual) Basophils # (Manual) D-Dimer ABG pH 7.306 L POC ABG pCO2 58.0 H POC ABG pO2 58.5 L ABG Hemoglobin 11.4 L ABG Oxyhemoglobin 86.9 L ABG Sodium 124.7 L ABG Potassium ABG Glucose 118 H Carboxyhemoglobin Sodium BUN Creatinine Glucose POC Glucose 143 H 134 H Ferritin Lactate Dehydrogenase Total Creatine Kinase CK-MB (CK-2) C-Reactive Protein Total Protein Albumin Arterial Blood Glucose 118 H Urine WBC (Auto) Coronavirus (PCR) 12/03/20 12/03/20 12/04/20 05:10 08:00 03:32 WBC RDW Seg Neuts % (Manual) Lymphocytes % (Manual) Seg Neutrophils # Seg Neutrophils # Man Lymphocytes # (Manual) Monocytes # (Manual) Basophils # (Manual) D-Dimer ABG pH 7.272 L POC ABG pCO2 60.1 H 54.6 H POC ABG pO2 82.8 L 78.6 L ABG Hemoglobin 11.4 L ABG Oxyhemoglobin ABG Sodium 132.2 L 130.2 L ABG Potassium ABG Glucose 166 H 164 H Carboxyhemoglobin 0.4 L Sodium BUN Creatinine Glucose POC Glucose Ferritin Lactate Dehydrogenase Total Creatine Kinase CK-MB (CK-2) C-Reactive Protein Total Protein Albumin Arterial Blood Glucose 166 H 164 H Urine WBC (Auto) Coronavirus (PCR) Positive A 12/04/20 12/04/20 12/04/20 05:40 05:40 07:30 WBC 21.7 H RDW 18.2 H Seg Neuts % (Manual) 74.0 H Lymphocytes % (Manual) 2.0 L Seg Neutrophils # Seg Neutrophils # Man 16.1 H Lymphocytes # (Manual) 0.4 L Monocytes # (Manual) 1.1 H Basophils # (Manual) 0.2 H D-Dimer ABG pH POC ABG pCO2 POC ABG pO2 ABG Hemoglobin ABG Oxyhemoglobin ABG Sodium ABG Potassium ABG Glucose Carboxyhemoglobin Sodium BUN 26 H Creatinine 1.7 H D Glucose 157 H POC Glucose Ferritin Lactate Dehydrogenase Total Creatine Kinase CK-MB (CK-2) C-Reactive Protein Total Protein 6.2 L Albumin 2.6 L Arterial Blood Glucose Urine WBC (Auto) > 182.0 H Coronavirus (PCR) 12/04/20 12/04/20 12/04/20 10:41 10:41 10:41 WBC RDW Seg Neuts % (Manual) Lymphocytes % (Manual) Seg Neutrophils # Seg Neutrophils # Man Lymphocytes # (Manual) Monocytes # (Manual) Basophils # (Manual) D-Dimer 1838.21 H ABG pH POC ABG pCO2 POC ABG pO2 ABG Hemoglobin ABG Oxyhemoglobin ABG Sodium ABG Potassium ABG Glucose Carboxyhemoglobin Sodium BUN Creatinine Glucose POC Glucose Ferritin 399.0 H Lactate Dehydrogenase 386 H Total Creatine Kinase CK-MB (CK-2) C-Reactive Protein 34.30 H Total Protein Albumin Arterial Blood Glucose Urine WBC (Auto) Coronavirus (PCR) 12/04/20 12/05/20 12/05/20 23:58 00:10 00:45 WBC RDW Seg Neuts % (Manual) Lymphocytes % (Manual) Seg Neutrophils # Seg Neutrophils # Man Lymphocytes # (Manual) Monocytes # (Manual) Basophils # (Manual) D-Dimer ABG pH POC ABG pCO2 55.5 H POC ABG pO2 ABG Hemoglobin 11.2 L ABG Oxyhemoglobin ABG Sodium 135.0 L ABG Potassium 4.6 H ABG Glucose 165 H Carboxyhemoglobin Sodium BUN Creatinine Glucose POC Glucose 134 H 146 H Ferritin Lactate Dehydrogenase Total Creatine Kinase CK-MB (CK-2) C-Reactive Protein Total Protein Albumin Arterial Blood Glucose 165 H Urine WBC (Auto) Coronavirus (PCR) Chest x-ray: other (none today) Allied health notes reviewed: nursing
[2020-12-05 12:04] LABS: Blood Urea Nitrogen 21 mg/dL (7-17); Calcium 9.7 mg/dL (8.4-10.2); Hemolysis Index 2
[2020-12-05 12:05] LABS: BUN/Creatinine Ratio 30
[2020-12-05] MEDS: INSULIN REGULAR, HUMAN 100 UNITS/1 ML SUB-Q SCH ×3 (12:46→23:40)
--- NOTE | 2020-12-05 16:14 | Progress Note ---
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 Neuro: h/o migraines, peripheral neuropathy -Sedated with fentanyl -Goal RASS 0 to -1 -Avoid delirium -SAT trials when appropriate -Xanax as needed -Scheduled gabapentin -Bilateral restraints for safety Cardio: ST,h/o HTN, s/p hypertensive urgency -S/p Cardene drip -Blood pressure monitoring per protocol -add antihtn as needed Resp: Acute hypoxic respiratory failure, severe tracheal stenosis, bronchial asthma exacerbation -Patient was intubated in the emergency department for ventilator support due to severe angioedema -CCM consulted, patient recommendations -VAP bundle -Daily SBT trial when appropriate -Daily SPO2 monitoring -Daily CXR and ABG -A.m. vent settings assist control tidal volume 450, rate of 14, PEEP of 12 and 55% FiO2 -See RT notes for weaning -Steroids GI: Morbid obesity -Nutrition consulted -Tube feedings at goal -Bowel regimen with Senokot -24-hour net +1019 -PPI : Acute kidney injury Secondary to be on -Presented with a BUN/creatinine of 0.8/10 which increased to 1.7/26 on 12/04 -Significant output -Daily weights -Avoid nephrotoxic medications -Renally dose medications -Dash -Trend BMP ID: Acute sepsis, hereditary idiopathic angioedema and urticia, Alpha gal syndrome, COVID-19 infection, febrile illness, allergic reaction -Infectious disease consulted, appreciate recommendations -h/o multiple intubations and tracheostomy in the past, patient has multiple allergies -Steroids, Benadryl -Outpatient neurologist follow-up upon discharge -Per the patient has been positive for COVID-19 for approximately 20 days -ABX per ID: Escalated to cefepime from azithromycin and ceftriaxone -Droplet/agitation precautions -Per ID avoid vancomycin due to NINI however start if blood cultures turn positive -Follow WBC and culture data -Follow fever curve -Per ID no acute phototherapy indicated given duration since onset Endo: h/o DM type II, hyperglycemia -SSI -Avoid hypoglycemia -BG every 6 Heme: Leukocytosis -Trend CBC -Patient's antibiotic therapy -Patient is also on steroids The high probability of a clinically significant, sudden or life threatening deterioration of the [multi] system(s) required my full and direct attention, intervention and personal management. The aggregate critical care time was [60] minutes. This time is in addition to time spent performing reported procedures but includes the following: [x] Data Review and interpretation [x] Patient assessment and monitoring of vital signs [x] Documentation [x] Medication orders and management Disposition Plan: icu Total Time Spent with Patient (Minutes): 60 History Interval history: This is a 39-year-old female with HTN, migraines, asthma, peripheral neuropathy, morbid obesity severe tracheal stenosis, idiopathic heredity angioedema and uticaria, alphagal syndrome s/p trach and multiple intubations who presented to emergency department on 11/29 for allergic reaction. Patient was intubated in the emergency department. Per family IV Benadryl, ketamine and Decadron work for spasms and stridor. Patient reportedly used EpiPen prior to arrival to emergency department. Patient is a being admitted to the hospital service with consult to [facility] for acute respiratory failure with hypoxemia secondary to hereditary angioedema and allergic reaction, hypertensive urgency. 11/30: Patient is on vent but awake and communicative. She is anxious. Patient does not know what triggered current recurrence of angioedema. FiO2 35%. Hemodynamically stable. Discussed with nursing staff and the patient, she communicates with writing. 12/01: Patient remains on vent and sedated. Current FiO2 30%. No acute events from overnight reported. Angioedema of face seems to improving. Hemodynamically stable. Pulmonary managing ventilator. Will be extubated when angioedema improved significantly. Discussed with the nursing staff. 12/02/20; Dr. Estrada recommended to initiate transfer to [facility] under the care of patient's ENT surgeon Dr. Carias I called [place] transfer center at [phone] and requested a transfer, discussed in detail with the transfer center nurse Ms. River She she took all the patient's information and added the name of the patient to the list of waiting for ICU transfers and reported that there are no ICU beds available at this point. Would call back, and said she would request for a facesheet I informed the above information to superintendent oil well services Dr. Estrada ,ICU charge nurse and the patient's nurse. Will follow up with the transfer process 12/03/2020; [facility] PCR test is positive today reports patient has been Covid positive for the last 20 days without any symptoms Management per guidelines, ID consult 12/03/20 20:18: I called patient's spouse Mr. Manoj Sol at [phone] and discussed in detail patient's condition, treatment plan, tests and reports, efforts to transfer the patient to [facility], however could not be successfully till now due to unavailability of ICU beds at [place] at this point, he wanted to know the plan of extubation here in the hospital, I encouraged him to call back tomorrow to discuss with pulmonary critical physician Dr. Estrada. I answered all his questions, he also reports that patient Ms. Ebenezer Lynn has been Covid positive for the last 20 days. I encouraged him to call back if she has any new concerns regarding the patient's condition no other treatment. He was appreciative of my call 12/04/2020; Persistent fevers, persistent positive COVID-19 ID consulted, awaiting transfer to [place] Discussed extensively with patient's yesterday Patient is critically ill ,very poor prognosis 12/05: Patient's updated by [facility], awaiting transfer to [place]. Hospitalist Physical - Constitutional Vitals: Temp Pulse Resp BP Pulse Ox 100.0 F H 116 H 14 149/68 95 12/05/20 12:12 12/05/20 15:44 12/05/20 15:00 12/05/20 15:44 12/05/20 15:44 General appearance: Present: no acute distress, well-nourished, obese (Orbitally obese), other (Intubated on vent) - EENT Eyes: Present: PERRL, EOM intact ENT: dentition normal - Neck Neck: Absent: masses or JVD - Respiratory Respiratory effort: normal Respiratory: bilateral: diminished - Cardiovascular Rhythm: regular Heart Sounds: Present: S1 & S2. Absent: systolic murmur, diastolic murmur - Extremities Extremities: no ischemia, pulses intact, pulses symmetrical, normal temperature, normal color Peripheral Pulses: within normal limits - Abdominal General gastrointestinal: soft, non-tender, non-distended, normal bowel sounds - Integumentary Integumentary: Present: warm, dry - Psychiatric Psychiatric: other (sedated) - Neurologic Neurologic: other (sedated) - Allied Health Allied health notes reviewed: nursing, RT, social work HEART Score - HEART Score Troponin: Troponin T < 0.010 ng/mL (0.00-0.029) 11/30/20 14:12 Results - Labs CBC & Chem 7: 12/05/20 11:04 12/05/20 11:04 Labs: Laboratory Last Values WBC 13.0 K/mm3 (4.5-11.0) H 12/05/20 11:04 RBC 3.61 M/mm3 (3.65-5.03) L 12/05/20 11:04 Hgb 10.1 gm/dl (10.1-14.3) 12/05/20 11:04 Hct 30.5 % (30.3-42.9) 12/05/20 11:04 MCV 84 fl (79-97) 12/05/20 11:04 MCH 28 pg (28-32) 12/05/20 11:04 MCHC 33 % (30-34) 12/05/20 11:04 RDW 18.8 % (13.2-15.2) H 12/05/20 11:04 Plt Count 189 K/mm3 (140-440) 12/05/20 11:04 Lymph % (Auto) 13.1 % (13.4-35.0) L 12/05/20 11:04 Wilkinson % (Auto) 6.7 % (0.0-7.3) 12/05/20 11:04 Eos % (Auto) 2.2 % (0.0-4.3) 12/05/20 11:04 Baso % (Auto) 0.4 % (0.0-1.8) 12/05/20 11:04 Lymph # (Auto) 1.7 K/mm3 (1.2-5.4) 12/05/20 11:04 Wilkinson # (Auto) 0.9 K/mm3 (0.0-0.8) H 12/05/20 11:04 Eos # (Auto) 0.3 K/mm3 (0.0-0.4) 12/05/20 11:04 Baso # (Auto) 0.1 K/mm3 (0.0-0.1) 12/05/20 11:04 Add Manual Diff Complete 12/04/20 05:40 Total Counted 100 12/04/20 05:40 Seg Neutrophils % 77.6 % (40.0-70.0) H 12/05/20 11:04 Seg Neuts % (Manual) 74.0 % (40.0-70.0) H 12/04/20 05:40 Band Neutrophils % 16.0 % 12/04/20 05:40 Lymphocytes % (Manual) 2.0 % (13.4-35.0) L 12/04/20 05:40 Monocytes % (Manual) 5.0 % (0.0-7.3) 12/04/20 05:40 Eosinophils % (Manual) 2.0 % (0.0-4.3) 12/04/20 05:40 Basophils % (Manual) 1.0 % (0.0-1.8) 12/04/20 05:40 Nucleated RBC % Not Reportable 12/04/20 05:40 Seg Neutrophils # 10.0 K/mm3 (1.8-7.7) H 12/05/20 11:04 Seg Neutrophils # Man 16.1 K/mm3 (1.8-7.7) H 12/04/20 05:40 Band Neutrophils # 3.5 K/mm3 12/04/20 05:40 Lymphocytes # (Manual) 0.4 K/mm3 (1.2-5.4) L 12/04/20 05:40 Abs React Lymphs (Man) 0.0 K/mm3 12/04/20 05:40 Monocytes # (Manual) 1.1 K/mm3 (0.0-0.8) H 12/04/20 05:40 Eosinophils # (Manual) 0.4 K/mm3 (0.0-0.4) 12/04/20 05:40 Basophils # (Manual) 0.2 K/mm3 (0.0-0.1) H 12/04/20 05:40 Metamyelocytes # 0.0 K/mm3 12/04/20 05:40 Myelocytes # 0.0 K/mm3 12/04/20 05:40 Promyelocytes # 0.0 K/mm3 12/04/20 05:40 Blast Cells # 0.0 K/mm3 12/04/20 05:40 WBC Morphology Not Reportable 12/04/20 05:40 Hypersegmented Neuts Not Reportable 12/04/20 05:40 Hyposegmented Neuts Not Reportable 12/04/20 05:40 Hypogranular Neuts Not Reportable 12/04/20 05:40 Smudge Cells Not Reportable 12/04/20 05:40 Toxic Granulation Not Reportable 12/04/20 05:40 Toxic Vacuolation Not Reportable 12/04/20 05:40 Dohle Bodies Not Reportable 12/04/20 05:40 Pelger-Huet Anomaly Not Reportable 12/04/20 05:40 Solomon Rods Not Reportable 12/04/20 05:40 Platelet Estimate Not Reportable 12/04/20 05:40 Clumped Platelets 1+ 12/04/20 05:40 Plt Clumps, EDTA Not Reportable 12/04/20 05:40 Large Platelets Not Reportable 12/04/20 05:40 Giant Platelets Not Reportable 12/04/20 05:40 Platelet Satelliting Not Reportable 12/04/20 05:40 Plt Morphology Comment Not Reportable 12/04/20 05:40 RBC Morphology Normal 12/04/20 05:40 Dimorphic RBCs Not Reportable 12/04/20 05:40 Polychromasia Not Reportable 12/04/20 05:40 Hypochromasia Not Reportable 12/04/20 05:40 Poikilocytosis Not Reportable 12/04/20 05:40 Anisocytosis Not Reportable 12/04/20 05:40 Microcytosis Not Reportable 12/04/20 05:40 Macrocytosis Not Reportable 12/04/20 05:40 Spherocytes Not Reportable 12/04/20 05:40 Pappenheimer Bodies Not Reportable 12/04/20 05:40 Sickle Cells Not Reportable 12/04/20 05:40 Target Cells Not Reportable 12/04/20 05:40 Tear Drop Cells Not Reportable 12/04/20 05:40 Ovalocytes Not Reportable 12/04/20 05:40 Helmet Cells Not Reportable 12/04/20 05:40 Merino-Freeman Spur Bodies Not Reportable 12/04/20 05:40 [place] Rings Not Reportable 12/04/20 05:40 Vaughn Cells Not Reportable 12/04/20 05:40 Bite Cells Not Reportable 12/04/20 05:40 Crenated Cell Not Reportable 12/04/20 05:40 Elliptocytes Not Reportable 12/04/20 05:40 Acanthocytes (Spur) Not Reportable 12/04/20 05:40 Rouleaux Not Reportable 12/04/20 05:40 Hemoglobin C Crystals Not Reportable 12/04/20 05:40 Schistocytes Not Reportable 12/04/20 05:40 Malaria parasites Not Reportable 12/04/20 05:40 Charanjit Bodies Not Reportable 12/04/20 05:40 Hem Pathologist Commnt No 12/04/20 05:40 D-Dimer 1838.21 ng/mlDDU (0-234) H 12/04/20 10:41 ABG pH 7.368 (7.320-7.450) 12/05/20 00:45 POC ABG pCO2 55.5 mmHg (32.0-48.0) H 12/05/20 00:45 POC ABG pO2 90.8 mmHg (83-108) 12/05/20 00:45 POC ABG HCO3 31.2 12/05/20 00:45 ABG O2 Saturation 97.3 (0-100) 12/05/20 00:45 POC ABG Base Excess 4.8 12/05/20 00:45 ABG Hemoglobin 11.2 (12.0-17.5) L 12/05/20 00:45 ABG Oxyhemoglobin 96.2 (94-98) 12/05/20 00:45 ABG Methemoglobin 0.3 (0.0-1.5) 12/05/20 00:45 ABG Sodium 135.0 mmol/L (136.0-145.0) L 12/05/20 00:45 ABG Potassium 4.6 mmol/L (3.40-4.50) H 12/05/20 00:45 ABG Chloride 105.0 mmol/L (98-107) 12/05/20 00:45 ABG Glucose 165 mg/dL (65-95) H 12/05/20 00:45 Carboxyhemoglobin 0.8 (0.5-1.5) 12/05/20 00:45 FiO2 % 55.0 12/05/20 00:45 Sodium 142 mmol/L (137-145) 12/05/20 11:04 Potassium 4.9 mmol/L (3.6-5.0) 12/05/20 11:04 Chloride 104.7 mmol/L (98-107) 12/05/20 11:04 Carbon Dioxide 31 mmol/L (22-30) H 12/05/20 11:04 Anion Gap 11 mmol/L 12/05/20 11:04 BUN 21 mg/dL (7-17) H 12/05/20 11:04 Creatinine 0.7 mg/dL (0.6-1.2) D 12/05/20 11:04 Estimated GFR > 60 ml/min 12/05/20 11:04 BUN/Creatinine Ratio 30 % 12/05/20 11:04 Glucose 152 mg/dL (65-100) H 12/05/20 11:04 POC Glucose 121 mg/dL (70-105) H 12/05/20 11:52 Calcium 9.7 mg/dL (8.4-10.2) 12/05/20 11:04 Magnesium 2.00 mg/dL (1.7-2.3) 12/04/20 05:40 Ferritin 399.0 ng/mL (10.0-200.0) H 12/04/20 10:41 Total Bilirubin 0.30 mg/dL (0.1-1.2) 12/04/20 05:40 Direct Bilirubin < 0.2 mg/dL (0-0.2) 11/29/20 07:48 Indirect Bilirubin 0.0 mg/dL 11/29/20 07:48 AST 19 units/L (5-40) 12/04/20 05:40 ALT 28 units/L (7-56) 12/04/20 05:40 Alkaline Phosphatase 93 units/L (35-129) 12/04/20 05:40 Lactate Dehydrogenase 386 units/L (91-180) H 12/04/20 10:41 Total Creatine Kinase 1132 units/L (30-135) H 11/30/20 14:12 CK-MB (CK-2) 14.6 ng/mL (0.0-4.0) H 11/30/20 14:12 CK-MB (CK-2) Rel Index 1.2 (0-4) 11/30/20 14:12 Troponin T < 0.010 ng/mL (0.00-0.029) 11/30/20 14:12 C-Reactive Protein 34.30 mg/dL (0.00-1.30) H 12/04/20 10:41 Total Protein 6.2 g/dL (6.3-8.2) L 12/04/20 05:40 Albumin 2.6 g/dL (3.9-5) L 12/04/20 05:40 Albumin/Globulin Ratio 0.7 % 12/04/20 05:40 HCG, Qual Negative (Negative) 11/29/20 07:48 Arterial Blood Glucose 165 mg/dL (65-95) H 12/05/20 00:45 Arterial Blood Ionized Calcium 4.8 mg/dL (4.6-5.3) 12/05/20 00:45 Urine Color Lauren (Yellow) 12/04/20 07:30 Urine Turbidity Turbid (Clear) 12/04/20 07:30 Urine pH 5.0 (5.0-7.0) 12/04/20 07:30 Ur Specific [place] 1.011 (1.003-1.030) 12/04/20 07:30 Urine Protein 100 mg/dl mg/dL (Negative) 12/04/20 07:30 Urine Glucose (UA) Neg mg/dL (Negative) 12/04/20 07:30 Urine Ketones Neg mg/dL (Negative) 12/04/20 07:30 Urine Blood Lg (Negative) 12/04/20 07:30 Urine Nitrite Neg (Negative) 12/04/20 07:30 Urine Bilirubin Neg (Negative) 12/04/20 07:30 Urine Urobilinogen < 2.0 mg/dL (<2.0) 12/04/20 07:30 Ur Leukocyte Esterase Mod (Negative) 12/04/20 07:30 Urine WBC (Auto) > 182.0 /HPF (0.0-6.0) H 12/04/20 07:30 Urine RBC (Auto) 33.0 /HPF (0.0-6.0) 12/04/20 07:30 Urine WBC Clumps 3+ /HPF 12/04/20 07:30 WBC Casts 17 /LPF 12/04/20 07:30 Urine Mucus 3+ /HPF 12/04/20 07:30 Coronavirus (PCR) Positive (Negative) A 12/03/20 08:00 Microbiology: Microbiology 12/04/20 Unknown Urine,Catheterized - Indwelling Catheter Urine Culture - Preliminary 12/04/20 00:54 Peripheral/Venous Blood Culture - Preliminary NO GROWTH AFTER 24 HOURS 12/04/20 00:54 Peripheral/Venous Blood Culture - Preliminary NO GROWTH AFTER 24 HOURS Dash/IV: Voiding Method Indwelling Catheter Active Medications - Current Medications Current Medications: Generic Name Dose Route Start Last Admin Trade Name Freq PRN Reason Stop Dose Admin Acetaminophen 650 mg 12/04/20 00:39 12/04/20 01:10 Acetaminophen 325 Mg Tab PO 650 mg Q6H PRN Administration Fever >101 Albuterol 2.5 mg 11/29/20 15:22 Albuterol 2.5 Mg/3 Ml Nebu IH Q4HRT PRN Shortness Of Breath Albuterol/Ipratropium 1 ampul 11/29/20 20:00 12/05/20 13:16 Ipratropium/Albuterol Sulfate 3 Ml Ampul.Neb IH 1 ampul Q6HRT KRYSTAL Administration Alprazolam 1 mg 11/29/20 13:00 Alprazolam 1 Mg Tab PO Q6H PRN Anxiety Lipase/Protease/Amylase 1 each 11/29/20 15:23 Lipase 10,500/Protease 25,000/Amylase 43,750 (Units) Dr Ariza FEEDTUBE PRN PRN For Clogged Feeding Tube Ascorbic Acid 500 mg 12/04/20 22:00 12/05/20 09:16 Ascorbic Acid 500 Mg Tab PO 500 mg BID KRYSTAL Administration Dextrose 50 ml 12/05/20 10:34 Dextrose 50% In Water (25gm) 50 Ml Syringe IV Q30MIN PRN Hypoglycemia Protocol Diphenhydramine HCl 25 mg 11/30/20 15:00 12/05/20 15:55 Diphenhydramine 50 Mg/Ml Vial IV 25 mg Q6H KRYSTAL Administration Famotidine 20 mg 11/30/20 15:00 12/05/20 09:16 Famotidine 20 Mg/2 Ml Inj IV 20 mg BID KRYSTAL Administration Fentanyl 50 mcg 11/29/20 10:22 Fentanyl 100 Mcg/2 Ml Inj IV Q10MIN PRN ANALGESIA Fondaparinux 2.5 mg 11/29/20 22:00 12/04/20 21:58 Fondaparinux 2.5 Mg/0.5 Ml Inj SUB-Q 2.5 mg Q24H KRYSTAL Administration Gabapentin 600 mg 11/30/20 17:00 12/05/20 09:16 Gabapentin 500 Mg/10 Ml Oral Liqd PO 600 mg BID KRYSTAL Administration Hydrophilic Ointment 1 applic 12/01/20 08:54 Lip Therapy Vaseline TP Q2HR PRN Dry Lips Midazolam HCl 100 mg/ Sodium 100 mls @ 2 mls/hr 11/29/20 12:00 12/03/20 20:56 Chloride IV 2 mg/hr TITR KRYSTAL 2 mls/hr Administration Protocol 2 MG/HR Fentanyl Citrate 2,000 mcg in 100 mls @ 6.45 mls/hr 11/29/20 12:30 12/05/20 16:04 Fentanyl Drip Premix IV 3 mcg/kg/hr TITR KRYSTAL 19.35 mls/hr Administration Protocol 1 MCG/KG/HR Nicardipine HCl 50 mg/ Sodium 250 mls @ 25 mls/hr 12/03/20 08:00 12/04/20 03:26 Chloride IV 0 mg/hr TITR KRYSTAL 0 mls/hr Titration Protocol 5 MG/HR Cefepime HCl 2 gm in 100 mls @ 200 mls/hr 12/04/20 15:00 12/05/20 15:54 Cefepime/Ns 2 Gm/100 Ml IV 200 mls/hr Q12H KRYSTAL Administration Protocol Insulin Human Regular 0 units 12/05/20 12:00 12/05/20 12:46 Insulin Regular, Human 100 Units/1 Ml SUB-Q Not Given Q6HR KRYSTAL Protocol Lorazepam 2 mg 11/29/20 12:00 12/03/20 02:34 Lorazepam 2 Mg/Ml Vial IV 2 mg Q4H PRN Administration Agitation Midazolam HCl 2 mg 11/29/20 10:22 Midazolam 2 Mg/2 Ml Inj IV Q10MIN PRN Sedation Montelukast Sodium 10 mg 11/29/20 22:00 12/04/20 21:57 Montelukast 10 Mg Tab PO 10 mg HS KRYSTAL Administration Multi-Ingred Cream/Lotion/Oil/Oint 1 applic 12/01/20 08:54 Mineral Oil/Petrolatum, White Ophth Oint 3.5 Gm OU Q4HR PRN Dry Eye(s) Senna/Docusate Sodium 1 tab 11/29/20 10:00 12/05/20 09:17 Sennosides/Docusate Sodium 8.6/50 Mg Tab FEEDTUBE 1 tab BID KRYSTAL Administration Simple Syrup 15 ml 11/29/20 15:23 Simple Syrup 15 Ml FEEDTUBE PRN PRN Hypoglycemia Simple Syrup 30 ml 11/29/20 15:23 Simple Syrup 15 Ml FEEDTUBE PRN PRN Hypoglycemia Sodium Bicarbonate 325 mg 11/29/20 15:23 Sodium Bicarbonate 325 Mg Tab FEEDTUBE PRN PRN For Clogged Feeding Tube Zinc Sulfate 220 mg 12/05/20 10:00 12/05/20 09:16 Zinc Sulfate 220 Mg Cap PO 220 mg QDAY KRYSTAL Administration Nutrition/Malnutrition Assess - Dietary Evaluation Nutrition/Malnutrition Findings: Nutrition Notes Start: 11/30/20 09:03 Freq: Status: Active Protocol: Document 12/05/20 10:40 CW (Rec: 12/05/20 10:56 CW [id number]) Nutrition Notes Initial or Follow up Reassessment Current Diagnosis Respiratory Failure Other Pertinent Diagnosis allergic reaction, alpha gal, hx HTN Current Diet Vital HP at 65 ml/hr Labs/Tests Last cmp 12/04 BUN 26 Cr 1.7 BG 157 Pertinent Medications Senokot Height 5 ft 6 in Weight 132.4 kg [place] Body Weight (kg) 59.09 BMI 47.1 Weight Status Morbidly Obese Subjective/Other Information Pt remains on mechanical vent. TF running at goal. No reports of intolerance at this time. Difficulty In Swallowing Current % PO Negligible Minimum of two criteria No Fluid Accumulation Mild (non-severe) #1 Nutrition Diagnosis Inadequate oral intake Diagnosis Progress(for reassessment Continues documentation) Is patient on ventilator? Yes Is Patient Ambulatory and/or Out of Bed No REE-([facility]-confined to bed) 2421.060 Kcal/Kg value to use for calculation 14 Approximate Energy Requirements Using 1854 kcal/Kg Calculation Used for Recommendations Kcal/kg Additional Notes Protein needs: 2.5 g/kg IBW , 148 g Fluid needs: 1ml/kcal Nutrition Intervention Change Diet Order: Continue TF regimen as ordered Nutrition Support: Vital High Protein at 65 ml/hr flush 45 ml q4h Kcal 1,560 Protein (gm) 135 Fluid (mL) 1,304 Follow-Up By: 12/07/20 Additional Comments F/u for TF tolerance and respiratory status
[2020-12-05] MEDS: ACETAMINOPHEN 325 MG TAB PO PRN (16:29)
[2020-12-05] MEDS: MONTELUKAST 10 MG TAB PO SCH (21:33)
[2020-12-05] MEDS: MIDAZOLAM 100 MG in SODIUM CHLORIDE 0.9% 80 ML IV SCH (21:34)
[2020-12-05] MEDS: FONDAPARINUX 2.5 MG/0.5 ML INJ SUB-Q SCH (21:45)
[2020-12-06] MEDS: IPRATROPIUM/ALBUTEROL SULFATE 3 ML AMPUL.NEB IH SCH ×4 (03:27→20:50)
[2020-12-06] MEDS: CEFEPIME/NS 2 GM/100 ML 2 GM/100 ML BAG IV SCH ×3 (04:00→21:02)
[2020-12-06] MEDS: diphenhydrAMINE 50 MG/ML VIAL IV SCH ×2 (04:02→09:49)
[2020-12-06] MEDS: INSULIN REGULAR, HUMAN 100 UNITS/1 ML SUB-Q SCH ×4 (05:09→23:34)
[2020-12-06 06:04] LABS: Hematocrit 28.4 % (30.3-42.9); Hemoglobin 9.4 gm/dl (10.1-14.3); Mean Corpuscular HGB Conc 33 % (30-34); Mean Corpuscular Volume 85 fl (79-97); Platelet Count 195 K/mm3 (140-440); Red Blood Count 3.37 M/mm3 (3.65-5.03); Red Cell Distribution Width 18.3 % (13.2-15.2)
[2020-12-06 06:08] LABS: BUN/Creatinine Ratio 36; Blood Urea Nitrogen 25 mg/dL (7-17); Calcium 9.4 mg/dL (8.4-10.2); Hemolysis Index 0
[2020-12-06] MEDS: fentaNYL DRIP Premix 2,000 MCG/100 ML BAG IV SCH ×4 (06:14→21:20)
[2020-12-06] MEDS: ASCORBIC ACID 500 MG TAB PO SCH ×2 (09:48→21:21)
[2020-12-06] MEDS: ZINC SULFATE 220 MG CAP PO SCH (09:48)
[2020-12-06] MEDS: GABAPENTIN 500 MG/10 ML ORAL LIQD PO SCH ×2 (09:52→21:21)
[2020-12-06] MEDS: FAMOTIDINE 20 MG/2 ML INJ IV SCH ×2 (09:53→21:21)
--- NOTE | 2020-12-06 11:34 | Progress Note ---
Assessment and Plan Acute hypoxemic respiratory failure Angioedema Morbid obesity Mild leukocytosis Hypertension. H/O alpha-gal syndrome (care plan and progress discussed with her Manoj including the fact that we are still awaiting a bed at [facility]) - plan is still to wean FiO2 to 40% then peep to 8 cm H2O slowly for sat's > 92% - continue anti-infectives per ID recommendations - await [place] transfer - continue to wean supplemental oxygen for target O2 sat's > 92% acutely - taper benadryl and continue Pepcid - continue care as below otherwise; - continue Daily SAT and SBT assessment as tolerated - VAP bundle addressed - continue lung protective strategies - continue bronchodilators with pulmonary hygiene per RT - wean per pulmonary driven protocols otherwise - continue accuchecks with glycemic control per SSI (While critically ill target blood glucose of 140-180 mg/dL; avoid hypoglycemia) - sedation prn for target RASS -1 to -2 - avoid nephrotoxins, renally dose all medications - continue to avoid benzodiazepine's, reduce the possibility of delirium - AB's per ID rec's - prn analgesia per CPOT score - Maintenance of sleep-wake cycle, avoid delirium - continue enteral nutritional support at goal rate as tolerated - G.I. & VTE prophylaxis - PT/OT/ROM exercises - continue mobility protocols for pressure ulcer prophylaxis - Monitor hemodynamics closely - continue other care per attending / other consultants - discharge planning ongoing concurrently COVID SPECIFIC INTERVENTIONS - Continue contact and airborne isolation - Remdesivir as per ID/Pulmonary developed protocols (not indicated re: duration of illness) - continue systemic steroids for severe COVID-19 infection empirically (no steroids re: COVID recovery status and h/o allergy to Solumedrol) - follow repeat COVID tests results - zinc and vitamin C supplementation - Monitor inflammatory markers per facility protocol - ferritin, Ddimer, CRP - therapeutic anticoagulation per system Protocol based on d-dimer and clinical considerations (VTE prophylaxis) .... Re-evaluate in am & prn CONDITION: CRITICAL PROGNOSIS: GUARDED CODE STATUS: FULL CODE The high probability of a clinically significant, sudden or life-threatening deterioration of the [respiratory, cardiovascular & immunologic] system(s) required my full and direct attention, intervention and personal management. The aggregate critical care time was [32] minutes without overlap. Time includes spent on; [x] Data Review and interpretation [x] Patient assessment and monitoring of vital signs [x] Documentation [x] Medication orders and management Subjective Date of service: 12/06/20 Principal diagnosis: Acute Hypoxemic Respiratory Failure; Angioedema;Obesity; leukocytosis Interval history: Patient is seen today for: Acute hypoxemic respiratory failure; Angioedema; Morbid obesity; leukocytosis; HTN; H/O alpha-gal syndrome Seen and examined at bedside; 24hour events reviewed; nursing and respiratory care staff consulted; no adverse overnight events reported to me; resting in be d; remains on MVS; still awaiting [facility] transfer; difficult to find a sweet sedation spot as gets very agitated and combative with SAT's; no emesis or overt aspiration; pulmonary infiltrates are persistent. Objective Vital Signs - 12hr 12/05/20 12/06/20 12/06/20 23:47 00:00 00:30 Temperature 100.1 F H Pulse Rate 101 H 104 H 102 H Pulse Rate [ From Monitor] Pulse Rate [ Throughout] Respiratory 17 20 21 Rate Respiratory Rate [ Throughout] Blood Pressure 133/63 138/65 136/71 O2 Sat by Pulse 95 95 91 Oximetry 12/06/20 12/06/20 12/06/20 00:38 01:00 01:30 Temperature Pulse Rate 104 H 105 H 103 H Pulse Rate [ From Monitor] Pulse Rate [ Throughout] Respiratory 20 21 Rate Respiratory Rate [ Throughout] Blood Pressure 136/71 134/69 147/74 O2 Sat by Pulse 92 92 93 Oximetry 12/06/20 12/06/20 12/06/20 02:00 02:30 03:00 Temperature Pulse Rate 104 H 107 H 107 H Pulse Rate [ From Monitor] Pulse Rate [ Throughout] Respiratory 20 19 21 Rate Respiratory Rate [ Throughout] Blood Pressure 156/80 142/75 169/106 O2 Sat by Pulse 94 96 94 Oximetry 12/06/20 12/06/20 12/06/20 03:15 03:30 04:00 Temperature 99.6 F Pulse Rate 104 H 106 H 107 H Pulse Rate [ 110 H From Monitor] Pulse Rate [ Throughout] Respiratory 20 16 17 Rate Respiratory Rate [ Throughout] Blood Pressure 145/77 156/80 O2 Sat by Pulse 100 95 94 Oximetry 12/06/20 12/06/20 12/06/20 04:30 04:41 05:00 Temperature Pulse Rate 105 H 106 H 106 H Pulse Rate [ From Monitor] Pulse Rate [ Throughout] Respiratory 17 21 Rate Respiratory Rate [ Throughout] Blood Pressure 152/79 152/79 154/88 O2 Sat by Pulse 95 96 96 Oximetry 12/06/20 12/06/20 12/06/20 05:30 05:40 06:00 Temperature Pulse Rate 107 H 106 H 109 H Pulse Rate [ 110 H From Monitor] Pulse Rate [ Throughout] Respiratory 20 20 17 Rate Respiratory Rate [ Throughout] Blood Pressure 154/86 166/92 O2 Sat by Pulse 96 100 96 Oximetry 12/06/20 12/06/20 12/06/20 06:30 07:00 07:30 Temperature Pulse Rate 106 H 107 H 109 H Pulse Rate [ From Monitor] Pulse Rate [ Throughout] Respiratory 18 18 22 Rate Respiratory Rate [ Throughout] Blood Pressure 158/81 153/87 176/94 O2 Sat by Pulse 96 96 96 Oximetry 12/06/20 12/06/20 12/06/20 08:00 08:13 08:19 Temperature 100.5 F H Pulse Rate 112 H 110 H Pulse Rate [ From Monitor] Pulse Rate [ 112 H Throughout] Respiratory 22 Rate Respiratory 20 Rate [ Throughout] Blood Pressure 165/89 165/89 O2 Sat by Pulse 95 95 Oximetry 12/06/20 12/06/20 12/06/20 08:30 09:00 09:30 Temperature Pulse Rate 110 H 115 H 113 H Pulse Rate [ From Monitor] Pulse Rate [ Throughout] Respiratory 22 18 19 Rate Respiratory Rate [ Throughout] Blood Pressure 166/91 160/105 167/87 O2 Sat by Pulse 95 95 96 Oximetry 12/06/20 10:00 Temperature Pulse Rate 111 H Pulse Rate [ From Monitor] Pulse Rate [ Throughout] Respiratory 18 Rate Respiratory Rate [ Throughout] Blood Pressure 157/86 O2 Sat by Pulse 96 Oximetry Constitutional: no acute distress (sedated), other (kianna g obese female without increased respiratory effort at rest on MVS) Eyes: non-icteric ENT: oropharynx moist, other (ETT 23 cm JOSELYN) Neck: supple, no lymphadenopathy, no JVD, other (large circumference; + healed trach scar) Effort: mildly labored Ascultation: Bilateral: diminished breath sounds, rales (coarse ) Percussion: Bilateral: not dull Cardiovascular: regular rate and rhythm Gastrointestinal: normoactive bowel sounds, soft, non-tender, non-distended Integumentary: normal Extremities: no cyanosis, no edema, pink and warm, pulses normal Neurologic: non-focal exam, pupils equal and round, CN II-XII normal, motor strength normal and Psychiatric: other (sedated) CBC and BMP: 12/07/20 04:00 12/07/20 05:00 ABG, PT/INR, D-dimer: ABG ABG pH 7.471 (7.320-7.450) H 12/06/20 04:00 POC ABG pCO2 42.1 mmHg (32.0-48.0) 12/06/20 04:00 POC ABG pO2 75.2 mmHg (83-108) L 12/06/20 04:00 POC ABG HCO3 30.0 12/06/20 04:00 ABG O2 Saturation 95.9 (0-100) 12/06/20 04:00 PT/INR, D-dimer D-Dimer 1838.21 ng/mlDDU (0-234) H 12/04/20 10:41 Abnormal lab findings: Abnormal Labs 11/29/20 11/29/20 11/29/20 07:48 07:48 07:48 WBC 11.3 H RBC Hgb Hct RDW 18.0 H Lymph % (Auto) [place] # (Auto) Seg Neutrophils % Seg Neuts % (Manual) Lymphocytes % (Manual) Seg Neutrophils # 7.9 H Seg Neutrophils # Man Lymphocytes # (Manual) Monocytes # (Manual) Basophils # (Manual) D-Dimer ABG pH POC ABG pCO2 POC ABG pO2 ABG Hemoglobin ABG Oxyhemoglobin ABG Sodium ABG Potassium ABG Glucose Carboxyhemoglobin Sodium 135 L Carbon Dioxide BUN Creatinine Glucose 204 H POC Glucose Ferritin Lactate Dehydrogenase Total Creatine Kinase CK-MB (CK-2) C-Reactive Protein Total Protein Albumin 3.7 L Arterial Blood Glucose Urine WBC (Auto) Coronavirus (PCR) 11/29/20 11/30/20 11/30/20 11:37 04:27 11:22 WBC RBC Hgb Hct RDW Lymph % (Auto) [place] # (Auto) Seg Neutrophils % Seg Neuts % (Manual) Lymphocytes % (Manual) Seg Neutrophils # Seg Neutrophils # Man Lymphocytes # (Manual) Monocytes # (Manual) Basophils # (Manual) D-Dimer ABG pH 7.318 L POC ABG pCO2 POC ABG pO2 76.1 L 196.4 H ABG Hemoglobin 11.96 L ABG Oxyhemoglobin 92.4 L 98.5 H ABG Sodium 133.7 L ABG Potassium 5.0 H ABG Glucose 171 H Carboxyhemoglobin 2.5 H Sodium Carbon Dioxide BUN Creatinine Glucose POC Glucose 157 H Ferritin Lactate Dehydrogenase Total Creatine Kinase CK-MB (CK-2) C-Reactive Protein Total Protein Albumin Arterial Blood Glucose 171 H Urine WBC (Auto) Coronavirus (PCR) 11/30/20 11/30/20 11/30/20 14:12 17:19 23:42 WBC RBC Hgb Hct RDW Lymph % (Auto) [place] # (Auto) Seg Neutrophils % Seg Neuts % (Manual) Lymphocytes % (Manual) Seg Neutrophils # Seg Neutrophils # Man Lymphocytes # (Manual) Monocytes # (Manual) Basophils # (Manual) D-Dimer ABG pH POC ABG pCO2 POC ABG pO2 ABG Hemoglobin ABG Oxyhemoglobin ABG Sodium ABG Potassium ABG Glucose Carboxyhemoglobin Sodium Carbon Dioxide BUN Creatinine Glucose POC Glucose 135 H 121 H Ferritin Lactate Dehydrogenase Total Creatine Kinase 1132 H CK-MB (CK-2) 14.6 H C-Reactive Protein Total Protein Albumin Arterial Blood Glucose Urine WBC (Auto) Coronavirus (PCR) 12/01/20 12/01/20 12/01/20 03:30 04:21 06:16 WBC RBC Hgb Hct RDW Lymph % (Auto) [place] # (Auto) Seg Neutrophils % Seg Neuts % (Manual) Lymphocytes % (Manual) Seg Neutrophils # Seg Neutrophils # Man Lymphocytes # (Manual) Monocytes # (Manual) Basophils # (Manual) D-Dimer ABG pH POC ABG pCO2 POC ABG pO2 37.6 L 76.2 L ABG Hemoglobin 10.4 L 10.8 L ABG Oxyhemoglobin 76.4 L 93.7 L ABG Sodium 112.8 L 110.9 L ABG Potassium ABG Glucose 103 H 107 H Carboxyhemoglobin Sodium Carbon Dioxide BUN Creatinine Glucose POC Glucose 129 H Ferritin Lactate Dehydrogenase Total Creatine Kinase CK-MB (CK-2) C-Reactive Protein Total Protein Albumin Arterial Blood Glucose 103 H 107 H Urine WBC (Auto) Coronavirus (PCR) 12/02/20 12/02/20 12/02/20 04:00 12:02 17:10 WBC RBC Hgb Hct RDW Lymph % (Auto) [place] # (Auto) Seg Neutrophils % Seg Neuts % (Manual) Lymphocytes % (Manual) Seg Neutrophils # Seg Neutrophils # Man Lymphocytes # (Manual) Monocytes # (Manual) Basophils # (Manual) D-Dimer ABG pH 7.306 L POC ABG pCO2 58.0 H POC ABG pO2 58.5 L ABG Hemoglobin 11.4 L ABG Oxyhemoglobin 86.9 L ABG Sodium 124.7 L ABG Potassium ABG Glucose 118 H Carboxyhemoglobin Sodium Carbon Dioxide BUN Creatinine Glucose POC Glucose 143 H 134 H Ferritin Lactate Dehydrogenase Total Creatine Kinase CK-MB (CK-2) C-Reactive Protein Total Protein Albumin Arterial Blood Glucose 118 H Urine WBC (Auto) Coronavirus (PCR) 12/03/20 12/03/20 12/04/20 05:10 08:00 03:32 WBC RBC Hgb Hct RDW Lymph % (Auto) [place] # (Auto) Seg Neutrophils % Seg Neuts % (Manual) Lymphocytes % (Manual) Seg Neutrophils # Seg Neutrophils # Man Lymphocytes # (Manual) Monocytes # (Manual) Basophils # (Manual) D-Dimer ABG pH 7.272 L POC ABG pCO2 60.1 H 54.6 H POC ABG pO2 82.8 L 78.6 L ABG Hemoglobin 11.4 L ABG Oxyhemoglobin ABG Sodium 132.2 L 130.2 L ABG Potassium ABG Glucose 166 H 164 H Carboxyhemoglobin 0.4 L Sodium Carbon Dioxide BUN Creatinine Glucose POC Glucose Ferritin Lactate Dehydrogenase Total Creatine Kinase CK-MB (CK-2) C-Reactive Protein Total Protein Albumin Arterial Blood Glucose 166 H 164 H Urine WBC (Auto) Coronavirus (PCR) Positive A 12/04/20 12/04/20 12/04/20 05:40 05:40 07:30 WBC 21.7 H RBC Hgb Hct RDW 18.2 H Lymph % (Auto) [place] # (Auto) Seg Neutrophils % Seg Neuts % (Manual) 74.0 H Lymphocytes % (Manual) 2.0 L Seg Neutrophils # Seg Neutrophils # Man 16.1 H Lymphocytes # (Manual) 0.4 L Monocytes # (Manual) 1.1 H Basophils # (Manual) 0.2 H D-Dimer ABG pH POC ABG pCO2 POC ABG pO2 ABG Hemoglobin ABG Oxyhemoglobin ABG Sodium ABG Potassium ABG Glucose Carboxyhemoglobin Sodium Carbon Dioxide BUN 26 H Creatinine 1.7 H D Glucose 157 H POC Glucose Ferritin Lactate Dehydrogenase Total Creatine Kinase CK-MB (CK-2) C-Reactive Protein Total Protein 6.2 L Albumin 2.6 L Arterial Blood Glucose Urine WBC (Auto) > 182.0 H Coronavirus (PCR) 12/04/20 12/04/20 12/04/20 10:41 10:41 10:41 WBC RBC Hgb Hct RDW Lymph % (Auto) [place] # (Auto) Seg Neutrophils % Seg Neuts % (Manual) Lymphocytes % (Manual) Seg Neutrophils # Seg Neutrophils # Man Lymphocytes # (Manual) Monocytes # (Manual) Basophils # (Manual) D-Dimer 1838.21 H ABG pH POC ABG pCO2 POC ABG pO2 ABG Hemoglobin ABG Oxyhemoglobin ABG Sodium ABG Potassium ABG Glucose Carboxyhemoglobin Sodium Carbon Dioxide BUN Creatinine Glucose POC Glucose Ferritin 399.0 H Lactate Dehydrogenase 386 H Total Creatine Kinase CK-MB (CK-2) C-Reactive Protein 34.30 H Total Protein Albumin Arterial Blood Glucose Urine WBC (Auto) Coronavirus (PCR) 12/04/20 12/05/20 12/05/20 23:58 00:10 00:45 WBC RBC Hgb Hct RDW Lymph % (Auto) [place] # (Auto) Seg Neutrophils % Seg Neuts % (Manual) Lymphocytes % (Manual) Seg Neutrophils # Seg Neutrophils # Man Lymphocytes # (Manual) Monocytes # (Manual) Basophils # (Manual) D-Dimer ABG pH POC ABG pCO2 55.5 H POC ABG pO2 ABG Hemoglobin 11.2 L ABG Oxyhemoglobin ABG Sodium 135.0 L ABG Potassium 4.6 H ABG Glucose 165 H Carboxyhemoglobin Sodium Carbon Dioxide BUN Creatinine Glucose POC Glucose 134 H 146 H Ferritin Lactate Dehydrogenase Total Creatine Kinase CK-MB (CK-2) C-Reactive Protein Total Protein Albumin Arterial Blood Glucose 165 H Urine WBC (Auto) Coronavirus (PCR) 12/05/20 12/05/20 12/05/20 11:04 11:04 11:52 WBC 13.0 H RBC 3.61 L Hgb Hct RDW 18.8 H Lymph % (Auto) 13.1 L [place] # (Auto) 0.9 H Seg Neutrophils % 77.6 H Seg Neuts % (Manual) Lymphocytes % (Manual) Seg Neutrophils # 10.0 H Seg Neutrophils # Man Lymphocytes # (Manual) Monocytes # (Manual) Basophils # (Manual) D-Dimer ABG pH POC ABG pCO2 POC ABG pO2 ABG Hemoglobin ABG Oxyhemoglobin ABG Sodium ABG Potassium ABG Glucose Carboxyhemoglobin Sodium Carbon Dioxide 31 H BUN 21 H Creatinine Glucose 152 H POC Glucose 121 H Ferritin Lactate Dehydrogenase Total Creatine Kinase CK-MB (CK-2) C-Reactive Protein Total Protein Albumin Arterial Blood Glucose Urine WBC (Auto) Coronavirus (PCR) 12/05/20 12/05/20 12/06/20 17:31 23:37 04:00 WBC RBC Hgb Hct RDW Lymph % (Auto) [place] # (Auto) Seg Neutrophils % Seg Neuts % (Manual) Lymphocytes % (Manual) Seg Neutrophils # Seg Neutrophils # Man Lymphocytes # (Manual) Monocytes # (Manual) Basophils # (Manual) D-Dimer ABG pH 7.471 H POC ABG pCO2 POC ABG pO2 75.2 L ABG Hemoglobin 10.4 L ABG Oxyhemoglobin ABG Sodium 133.7 L ABG Potassium ABG Glucose 120 H Carboxyhemoglobin Sodium Carbon Dioxide BUN Creatinine Glucose POC Glucose 148 H 133 H Ferritin Lactate Dehydrogenase Total Creatine Kinase CK-MB (CK-2) C-Reactive Protein Total Protein Albumin Arterial Blood Glucose 120 H Urine WBC (Auto) Coronavirus (PCR) 12/06/20 12/06/20 12/06/20 05:07 05:07 05:09 WBC RBC 3.37 L Hgb 9.4 L Hct 28.4 L RDW 18.3 H Lymph % (Auto) [place] # (Auto) Seg Neutrophils % Seg Neuts % (Manual) Lymphocytes % (Manual) Seg Neutrophils # Seg Neutrophils # Man Lymphocytes # (Manual) Monocytes # (Manual) Basophils # (Manual) D-Dimer ABG pH POC ABG pCO2 POC ABG pO2 ABG Hemoglobin ABG Oxyhemoglobin ABG Sodium ABG Potassium ABG Glucose Carboxyhemoglobin Sodium Carbon Dioxide 33 H BUN 25 H Creatinine Glucose 131 H POC Glucose 122 H Ferritin Lactate Dehydrogenase Total Creatine Kinase CK-MB (CK-2) C-Reactive Protein Total Protein Albumin Arterial Blood Glucose Urine WBC (Auto) Coronavirus (PCR) Chest x-ray: image reviewed (improved RUL infiltrate) Allied health notes reviewed: nursing
[2020-12-06] MEDS: SENNOSIDES/DOCUSATE SODIUM 8.6/50 MG TAB FEEDTUBE SCH ×2 (12:21→21:23)
[2020-12-06] MEDS ORDERED: MAGNESIUM SULFATE 4 GM/100 ML BAG IV ONE (14:00)
--- NOTE | 2020-12-06 15:36 | Progress Note ---
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 Neuro: h/o migraines, peripheral neuropathy -Sedated with fentanyl -Goal RASS 0 to -1 -Avoid delirium -SAT trials when appropriate -Xanax as needed -Scheduled gabapentin -Bilateral restraints for safety Cardio: ST,h/o HTN, s/p hypertensive urgency, s/p cardiac arrest -S/p Cardene drip -Blood pressure monitoring per protocol -Restarted home hydrochlorothiazide -S/p cardiac arrest on 12/06-> see code sheet for details and dr. Mcgee notes Resp: Acute hypoxic respiratory failure, severe tracheal stenosis, bronchial asthma exacerbation -Patient was intubated in the emergency department for ventilator support due to severe angioedema -CCM consulted, patient recommendations -VAP bundle -Daily SBT trial when appropriate -Daily SPO2 monitoring -Daily CXR and ABG -A.m. vent settings assist control tidal volume 450, rate of 14, PEEP of 10 and 40% FiO2 -See RT notes for weaning -Steroids GI: Morbid obesity -Nutrition consulted -Tube feedings at goal -Bowel regimen with Senokot -24-hour net +1354 -PPI : Acute kidney injury 2/2 Vasomotor nephropathy -Presented with a BUN/creatinine of 0.8/10 which increased to 1.7/26 on 12/04 but no down trending -Significant output -Daily weights -Avoid nephrotoxic medications -Renally dose medications -Dash -Trend BMP ID: Acute sepsis, hereditary idiopathic angioedema and urticia, Alpha gal syndrome, COVID-19 infection, febrile illness, allergic reaction -Infectious disease consulted, appreciate recommendations -h/o multiple intubations and tracheostomy in the past, patient has multiple allergies -Steroids, Benadryl -Outpatient neurologist follow-up upon discharge -Per the patient has been positive for COVID-19 for approximately 20 days -ABX per ID: Escalated to cefepime from azithromycin and ceftriaxone -Droplet/agitation precautions -Per ID avoid vancomycin due to NINI however start if blood cultures turn positive -Follow WBC and culture data -Follow fever curve -Per ID no acute therapy indicated given duration since onset Endo: h/o DM type II, hyperglycemia -SSI -Avoid hypoglycemia -BG every 6 Heme: Leukocytosis -Trend CBC -Patient's antibiotic therapy -Patient is also on steroids The high probability of a clinically significant, sudden or life threatening deterioration of the [multi] system(s) required my full and direct attention, intervention and personal management. The aggregate critical care time was [90] minutes. This time is in addition to time spent performing reported procedures but includes the following: [x] Data Review and interpretation [x] Patient assessment and monitoring of vital signs [x] Documentation [x] Medication orders and management Disposition Plan: icu Total Time Spent with Patient (Minutes): 90 History Interval history: This is a 39-year-old female with HTN, migraines, asthma, peripheral neuropathy, morbid obesity severe tracheal stenosis, idiopathic heredity angioedema and uticaria, alphagal syndrome s/p trach and multiple intubations who presented to emergency department on 11/29 for allergic reaction. Patient was intubated in the emergency department. Per family IV Benadryl, ketamine and Decadron work for spasms and stridor. Patient reportedly used EpiPen prior to arrival to emergency department. Patient is a being admitted to the hospital service with consult to [facility] for acute respiratory failure with hypoxemia secondary to hereditary angioedema and allergic reaction, hypertensive urgency. 11/30: Patient is on vent but awake and communicative. She is anxious. Patient does not know what triggered current recurrence of angioedema. FiO2 35%. Hemodynamically stable. Discussed with nursing staff and the patient, she communicates with writing. 12/01: Patient remains on vent and sedated. Current FiO2 30%. No acute events from overnight reported. Angioedema of face seems to improving. Hemodynamically stable. Pulmonary managing ventilator. Will be extubated when angioedema improved significantly. Discussed with the nursing staff. 12/02/20; Dr. Estrada recommended to initiate transfer to [facility] under the care of patient's ENT surgeon Dr. Carias I called [place] transfer center at [phone] and requested a transfer, discussed in detail with the transfer center nurse Ms. River She she took all the patient's information and added the name of the patient to the list of waiting for ICU transfers and reported that there are no ICU beds available at this point. Would call back, and said she would request for a facesheet I informed the above information to first officer and flight instructor Dr. Estrada ,ICU charge nurse and the patient's nurse. Will follow up with the transfer process 12/03/2020; Ascencio PCR test is positive today reports patient has been Covid positive for the last 20 days without any symptoms Management per guidelines, ID consult 12/03/20 20:18: I called patient's spouse Mr. Manoj Sol at [phone] and discussed in detail patient's condition, treatment plan, tests and reports, efforts to transfer the patient to [facility], however could not be successfully till now due to unavailability of ICU beds at [place] at this point, he wanted to know the plan of extubation here in the hospital, I encouraged him to call back tomorrow to discuss with pulmonary critical physician Dr. Estrada. I answered all his questions, he also reports that patient Ms. Ebenezer Lynn has been Covid positive for the last 20 days. I encouraged him to call back if she has any new concerns regarding the patient's condition no other treatment. He was appreciative of my call 12/04/2020; Persistent fevers, persistent positive COVID-19 ID consulted, awaiting transfer to [place] Discussed extensively with patient's yesterday Patient is critically ill ,very poor prognosis 12/05: Patient's updated by [facility], awaiting transfer to [place]. 12/06:CASSIUS overnight. This evening patient was agitated and bite down on OETT and became hypoxic. Eventually losing her pulse and received ACLS. Dr. Tavo Meeks attempted to update of events but no answer. See code sheet/note for details I updated pt mother over the phone as she questioned about "organ failure" and need for trach. She stated pt and her are against a trach. Hospitalist Physical - Constitutional Vitals: Temp Pulse Resp BP Pulse Ox 100.7 F H 102 H 17 139/71 95 12/06/20 12:00 12/06/20 14:30 12/06/20 14:30 12/06/20 14:30 12/06/20 14:30 General appearance: Present: no acute distress, well-nourished, obese (Orbitally obese), other (Intubated on vent) - EENT Eyes: Present: PERRL ENT: dentition normal - Neck Neck: Present: normal ROM - Respiratory Respiratory effort: normal Respiratory: bilateral: diminished - Cardiovascular Rhythm: regular Heart Sounds: Present: S1 & S2. Absent: systolic murmur, diastolic murmur - Extremities Extremities: no ischemia, pulses intact, pulses symmetrical, No edema, normal temperature, normal color Peripheral Pulses: within normal limits - Abdominal General gastrointestinal: soft, non-tender, non-distended, normal bowel sounds - Integumentary Integumentary: Present: clear, warm, dry - Psychiatric Psychiatric: other (sedated) - Neurologic Neurologic: other (sedated) - Allied Health Allied health notes reviewed: nursing, RT, social work HEART Score - HEART Score Troponin: Troponin T < 0.010 ng/mL (0.00-0.029) 11/30/20 14:12 Results - Labs CBC & Chem 7: 12/06/20 05:07 12/06/20 05:07 Labs: Laboratory Last Values WBC 11.0 K/mm3 (4.5-11.0) 12/06/20 05:07 RBC 3.37 M/mm3 (3.65-5.03) L 12/06/20 05:07 Hgb 9.4 gm/dl (10.1-14.3) L 12/06/20 05:07 Hct 28.4 % (30.3-42.9) L 12/06/20 05:07 MCV 85 fl (79-97) 12/06/20 05:07 MCH 28 pg (28-32) 12/06/20 05:07 MCHC 33 % (30-34) 12/06/20 05:07 RDW 18.3 % (13.2-15.2) H 12/06/20 05:07 Plt Count 195 K/mm3 (140-440) 12/06/20 05:07 Lymph % (Auto) 13.1 % (13.4-35.0) L 12/05/20 11:04 [place] % (Auto) 6.7 % (0.0-7.3) 12/05/20 11:04 Eos % (Auto) 2.2 % (0.0-4.3) 12/05/20 11:04 Baso % (Auto) 0.4 % (0.0-1.8) 12/05/20 11:04 Lymph # (Auto) 1.7 K/mm3 (1.2-5.4) 12/05/20 11:04 [place] # (Auto) 0.9 K/mm3 (0.0-0.8) H 12/05/20 11:04 Eos # (Auto) 0.3 K/mm3 (0.0-0.4) 12/05/20 11:04 Baso # (Auto) 0.1 K/mm3 (0.0-0.1) 12/05/20 11:04 Add Manual Diff Complete 12/04/20 05:40 Total Counted 100 12/04/20 05:40 Seg Neutrophils % 77.6 % (40.0-70.0) H 12/05/20 11:04 Seg Neuts % (Manual) 74.0 % (40.0-70.0) H 12/04/20 05:40 Band Neutrophils % 16.0 % 12/04/20 05:40 Lymphocytes % (Manual) 2.0 % (13.4-35.0) L 12/04/20 05:40 Monocytes % (Manual) 5.0 % (0.0-7.3) 12/04/20 05:40 Eosinophils % (Manual) 2.0 % (0.0-4.3) 12/04/20 05:40 Basophils % (Manual) 1.0 % (0.0-1.8) 12/04/20 05:40 Nucleated RBC % Not Reportable 12/04/20 05:40 Seg Neutrophils # 10.0 K/mm3 (1.8-7.7) H 12/05/20 11:04 Seg Neutrophils # Man 16.1 K/mm3 (1.8-7.7) H 12/04/20 05:40 Band Neutrophils # 3.5 K/mm3 12/04/20 05:40 Lymphocytes # (Manual) 0.4 K/mm3 (1.2-5.4) L 12/04/20 05:40 Abs React Lymphs (Man) 0.0 K/mm3 12/04/20 05:40 Monocytes # (Manual) 1.1 K/mm3 (0.0-0.8) H 12/04/20 05:40 Eosinophils # (Manual) 0.4 K/mm3 (0.0-0.4) 12/04/20 05:40 Basophils # (Manual) 0.2 K/mm3 (0.0-0.1) H 12/04/20 05:40 Metamyelocytes # 0.0 K/mm3 12/04/20 05:40 Myelocytes # 0.0 K/mm3 12/04/20 05:40 Promyelocytes # 0.0 K/mm3 12/04/20 05:40 Blast Cells # 0.0 K/mm3 12/04/20 05:40 WBC Morphology Not Reportable 12/04/20 05:40 Hypersegmented Neuts Not Reportable 12/04/20 05:40 Hyposegmented Neuts Not Reportable 12/04/20 05:40 Hypogranular Neuts Not Reportable 12/04/20 05:40 Smudge Cells Not Reportable 12/04/20 05:40 Toxic Granulation Not Reportable 12/04/20 05:40 Toxic Vacuolation Not Reportable 12/04/20 05:40 Dohle Bodies Not Reportable 12/04/20 05:40 Pelger-Huet Anomaly Not Reportable 12/04/20 05:40 Solomon Rods Not Reportable 12/04/20 05:40 Platelet Estimate Not Reportable 12/04/20 05:40 Clumped Platelets 1+ 12/04/20 05:40 Plt Clumps, EDTA Not Reportable 12/04/20 05:40 Large Platelets Not Reportable 12/04/20 05:40 Giant Platelets Not Reportable 12/04/20 05:40 Platelet Satelliting Not Reportable 12/04/20 05:40 Plt Morphology Comment Not Reportable 12/04/20 05:40 RBC Morphology Normal 12/04/20 05:40 Dimorphic RBCs Not Reportable 12/04/20 05:40 Polychromasia Not Reportable 12/04/20 05:40 Hypochromasia Not Reportable 12/04/20 05:40 Poikilocytosis Not Reportable 12/04/20 05:40 Anisocytosis Not Reportable 12/04/20 05:40 Microcytosis Not Reportable 12/04/20 05:40 Macrocytosis Not Reportable 12/04/20 05:40 Spherocytes Not Reportable 12/04/20 05:40 Pappenheimer Bodies Not Reportable 12/04/20 05:40 Sickle Cells Not Reportable 12/04/20 05:40 Target Cells Not Reportable 12/04/20 05:40 Tear Drop Cells Not Reportable 12/04/20 05:40 Ovalocytes Not Reportable 12/04/20 05:40 Helmet Cells Not Reportable 12/04/20 05:40 Merino-Daviston Bodies Not Reportable 12/04/20 05:40 [place] Rings Not Reportable 12/04/20 05:40 Paulo Cells Not Reportable 12/04/20 05:40 Bite Cells Not Reportable 12/04/20 05:40 Crenated Cell Not Reportable 12/04/20 05:40 Elliptocytes Not Reportable 12/04/20 05:40 Acanthocytes (Spur) Not Reportable 12/04/20 05:40 Rouleaux Not Reportable 12/04/20 05:40 Hemoglobin C Crystals Not Reportable 12/04/20 05:40 Schistocytes Not Reportable 12/04/20 05:40 Malaria parasites Not Reportable 12/04/20 05:40 Charanjit Bodies Not Reportable 12/04/20 05:40 Hem Pathologist Commnt No 12/04/20 05:40 D-Dimer 1838.21 ng/mlDDU (0-234) H 12/04/20 10:41 ABG pH 7.471 (7.320-7.450) H 12/06/20 04:00 POC ABG pCO2 42.1 mmHg (32.0-48.0) 12/06/20 04:00 POC ABG pO2 75.2 mmHg (83-108) L 12/06/20 04:00 POC ABG HCO3 30.0 12/06/20 04:00 ABG O2 Saturation 95.9 (0-100) 12/06/20 04:00 POC ABG Base Excess 5.8 12/06/20 04:00 ABG Hemoglobin 10.4 (12.0-17.5) L 12/06/20 04:00 ABG Oxyhemoglobin 94.7 (94-98) 12/06/20 04:00 ABG Methemoglobin 0.3 (0.0-1.5) 12/06/20 04:00 ABG Sodium 133.7 mmol/L (136.0-145.0) L 12/06/20 04:00 ABG Potassium 4.4 mmol/L (3.40-4.50) 12/06/20 04:00 ABG Chloride 103.0 mmol/L (98-107) 12/06/20 04:00 ABG Glucose 120 mg/dL (65-95) H 12/06/20 04:00 Carboxyhemoglobin 1.0 (0.5-1.5) 12/06/20 04:00 FiO2 % 40.0 12/06/20 04:00 Sodium 143 mmol/L (137-145) 12/06/20 05:07 Potassium 4.7 mmol/L (3.6-5.0) 12/06/20 05:07 Chloride 102.3 mmol/L (98-107) 12/06/20 05:07 Carbon Dioxide 33 mmol/L (22-30) H 12/06/20 05:07 Anion Gap 12 mmol/L 12/06/20 05:07 BUN 25 mg/dL (7-17) H 12/06/20 05:07 Creatinine 0.7 mg/dL (0.6-1.2) 12/06/20 05:07 Estimated GFR > 60 ml/min 12/06/20 05:07 BUN/Creatinine Ratio 36 % 12/06/20 05:07 Glucose 131 mg/dL (65-100) H 12/06/20 05:07 POC Glucose 120 mg/dL (70-105) H 12/06/20 11:59 Calcium 9.4 mg/dL (8.4-10.2) 12/06/20 05:07 Phosphorus 3.40 mg/dL (2.5-4.5) 12/06/20 05:07 Magnesium 1.70 mg/dL (1.7-2.3) 12/06/20 05:07 Ferritin 399.0 ng/mL (10.0-200.0) H 12/04/20 10:41 Total Bilirubin 0.30 mg/dL (0.1-1.2) 12/04/20 05:40 Direct Bilirubin < 0.2 mg/dL (0-0.2) 11/29/20 07:48 Indirect Bilirubin 0.0 mg/dL 11/29/20 07:48 AST 19 units/L (5-40) 12/04/20 05:40 ALT 28 units/L (7-56) 12/04/20 05:40 Alkaline Phosphatase 93 units/L (35-129) 12/04/20 05:40 Lactate Dehydrogenase 386 units/L (91-180) H 12/04/20 10:41 Total Creatine Kinase 1132 units/L (30-135) H 11/30/20 14:12 CK-MB (CK-2) 14.6 ng/mL (0.0-4.0) H 11/30/20 14:12 CK-MB (CK-2) Rel Index 1.2 (0-4) 11/30/20 14:12 Troponin T < 0.010 ng/mL (0.00-0.029) 11/30/20 14:12 C-Reactive Protein 34.30 mg/dL (0.00-1.30) H 12/04/20 10:41 Total Protein 6.2 g/dL (6.3-8.2) L 12/04/20 05:40 Albumin 2.6 g/dL (3.9-5) L 12/04/20 05:40 Albumin/Globulin Ratio 0.7 % 12/04/20 05:40 HCG, Qual Negative (Negative) 11/29/20 07:48 Arterial Blood Glucose 120 mg/dL (65-95) H 12/06/20 04:00 Arterial Blood Ionized Calcium 4.8 mg/dL (4.6-5.3) 12/06/20 04:00 Urine Color Lauren (Yellow) 12/04/20 07:30 Urine Turbidity Turbid (Clear) 12/04/20 07:30 Urine pH 5.0 (5.0-7.0) 12/04/20 07:30 Ur Specific [place] 1.011 (1.003-1.030) 12/04/20 07:30 Urine Protein 100 mg/dl mg/dL (Negative) 12/04/20 07:30 Urine Glucose (UA) Neg mg/dL (Negative) 12/04/20 07:30 Urine Ketones Neg mg/dL (Negative) 12/04/20 07:30 Urine Blood Lg (Negative) 12/04/20 07:30 Urine Nitrite Neg (Negative) 12/04/20 07:30 Urine Bilirubin Neg (Negative) 12/04/20 07:30 Urine Urobilinogen < 2.0 mg/dL (<2.0) 12/04/20 07:30 Ur Leukocyte Esterase Mod (Negative) 12/04/20 07:30 Urine WBC (Auto) > 182.0 /HPF (0.0-6.0) H 12/04/20 07:30 Urine RBC (Auto) 33.0 /HPF (0.0-6.0) 12/04/20 07:30 Urine WBC Clumps 3+ /HPF 12/04/20 07:30 WBC Casts 17 /LPF 12/04/20 07:30 Urine Mucus 3+ /HPF 12/04/20 07:30 Coronavirus (PCR) Positive (Negative) A 12/03/20 08:00 Microbiology: Microbiology 12/04/20 00:54 Peripheral/Venous Blood Culture - Preliminary NO GROWTH AFTER 48 HOURS 12/04/20 00:54 Peripheral/Venous Blood Culture - Preliminary NO GROWTH AFTER 48 HOURS 12/04/20 Unknown Urine,Catheterized - Indwelling Catheter Urine Culture - Preliminary Dash/IV: Voiding Method Indwelling Catheter Active Medications - Current Medications Current Medications: Generic Name Dose Route Start Last Admin Trade Name Freq PRN Reason Stop Dose Admin Acetaminophen 650 mg 12/04/20 00:39 12/05/20 16:29 Acetaminophen 325 Mg Tab PO 650 mg Q6H PRN Administration Fever >101 Albuterol 2.5 mg 11/29/20 15:22 Albuterol 2.5 Mg/3 Ml Nebu IH Q4HRT PRN Shortness Of Breath Albuterol/Ipratropium 1 ampul 11/29/20 20:00 12/06/20 08:19 Ipratropium/Albuterol Sulfate 3 Ml Ampul.Neb IH 1 ampul Q6HRT KRYSTAL Administration Alprazolam 1 mg 11/29/20 13:00 Alprazolam 1 Mg Tab PO Q6H PRN Anxiety Lipase/Protease/Amylase 1 each 11/29/20 15:23 Lipase 10,500/Protease 25,000/Amylase 43,750 (Units) Dr Ariza FEEDTUBE PRN PRN For Clogged Feeding Tube Ascorbic Acid 500 mg 12/04/20 22:00 12/06/20 09:48 Ascorbic Acid 500 Mg Tab PO 500 mg BID KRYSTAL Administration Dextrose 50 ml 12/05/20 10:34 Dextrose 50% In Water (25gm) 50 Ml Syringe IV Q30MIN PRN Hypoglycemia Protocol Diphenhydramine HCl 25 mg 12/06/20 22:00 Diphenhydramine 50 Mg/Ml Vial IV 12/06/20 23:59 Q12HR KRYSTAL Diphenhydramine HCl 25 mg 12/07/20 10:00 Diphenhydramine 50 Mg/Ml Vial IV 12/08/20 10:01 Q24HR KRYSTAL Famotidine 20 mg 11/30/20 15:00 12/06/20 09:53 Famotidine 20 Mg/2 Ml Inj IV 20 mg BID KRYSTAL Administration Fentanyl 50 mcg 11/29/20 10:22 Fentanyl 100 Mcg/2 Ml Inj IV Q10MIN PRN ANALGESIA Fondaparinux 2.5 mg 11/29/20 22:00 12/05/20 21:45 Fondaparinux 2.5 Mg/0.5 Ml Inj SUB-Q 2.5 mg Q24H KRYSTAL Administration Gabapentin 600 mg 11/30/20 17:00 12/06/20 09:52 Gabapentin 500 Mg/10 Ml Oral Liqd PO 600 mg BID KRYSTAL Administration Hydrochlorothiazide 25 mg 12/06/20 14:00 Hydrochlorothiazide 25 Mg Tab PO QDAY KRYSATL Hydrophilic Ointment 1 applic 12/01/20 08:54 Lip Therapy Vaseline TP Q2HR PRN Dry Lips Midazolam HCl 100 mg/ Sodium 100 mls @ 2 mls/hr 11/29/20 12:00 12/06/20 12:36 Chloride IV 0 mg/hr TITR KRYSTAL 0 mls/hr Titration Protocol 2 MG/HR Fentanyl Citrate 2,000 mcg in 100 mls @ 6.45 mls/hr 11/29/20 12:30 12/06/20 12:16 Fentanyl Drip Premix IV 3 mcg/kg/hr TITR KRYSTAL 19.35 mls/hr Administration Protocol 1 MCG/KG/HR Nicardipine HCl 50 mg/ Sodium 250 mls @ 25 mls/hr 12/03/20 08:00 12/04/20 03:26 Chloride IV 0 mg/hr TITR KRYSTAL 0 mls/hr Titration Protocol 5 MG/HR Cefepime HCl 2 gm in 100 mls @ 200 mls/hr 12/06/20 12:00 12/06/20 12:19 Cefepime/Ns 2 Gm/100 Ml IV 200 mls/hr Q8H KRYSTAL Administration Protocol Magnesium Sulfate 4 gm in 100 mls @ 25 mls/hr 12/06/20 14:00 Magnesium Sulfate 4gm/100ml IV 12/06/20 17:59 ONCE ONE Insulin Human Regular 0 units 12/05/20 12:00 12/06/20 12:35 Insulin Regular, Human 100 Units/1 Ml SUB-Q Not Given Q6HR KRYSTAL Protocol Lorazepam 2 mg 11/29/20 12:00 12/03/20 02:34 Lorazepam 2 Mg/Ml Vial IV 2 mg Q4H PRN Administration Agitation Midazolam HCl 2 mg 11/29/20 10:22 Midazolam 2 Mg/2 Ml Inj IV Q10MIN PRN Sedation Montelukast Sodium 10 mg 11/29/20 22:00 12/05/20 21:33 Montelukast 10 Mg Tab PO 10 mg HS KRYSTAL Administration Multi-Ingred Cream/Lotion/Oil/Oint 1 applic 12/01/20 08:54 Mineral Oil/Petrolatum, White Ophth Oint 3.5 Gm OU Q4HR PRN Dry Eye(s) Senna/Docusate Sodium 1 tab 11/29/20 10:00 12/06/20 12:21 Sennosides/Docusate Sodium 8.6/50 Mg Tab FEEDTUBE 1 tab BID KRYSTAL Administration Simple Syrup 15 ml 11/29/20 15:23 Simple Syrup 15 Ml FEEDTUBE PRN PRN Hypoglycemia Simple Syrup 30 ml 11/29/20 15:23 Simple Syrup 15 Ml FEEDTUBE PRN PRN Hypoglycemia Sodium Bicarbonate 325 mg 11/29/20 15:23 Sodium Bicarbonate 325 Mg Tab FEEDTUBE PRN PRN For Clogged Feeding Tube Zinc Sulfate 220 mg 12/05/20 10:00 12/06/20 09:48 Zinc Sulfate 220 Mg Cap PO 220 mg QDAY KRYSTAL Administration Nutrition/Malnutrition Assess - Dietary Evaluation Nutrition/Malnutrition Findings: Nutrition Notes Start: 11/30/20 09:03 Freq: Status: Active Protocol: Document 12/05/20 10:40 CW (Rec: 12/05/20 10:56 CW [id number]) Nutrition Notes Initial or Follow up Reassessment Current Diagnosis Respiratory Failure Other Pertinent Diagnosis allergic reaction, alpha gal, hx HTN Current Diet Vital HP at 65 ml/hr Labs/Tests Last cmp 12/04 BUN 26 Cr 1.7 BG 157 Pertinent Medications Senokot Height 5 ft 6 in Weight 132.4 kg [place] Body Weight (kg) 59.09 BMI 47.1 Weight Status Morbidly Obese Subjective/Other Information Pt remains on mechanical vent. TF running at goal. No reports of intolerance at this time. Difficulty In Swallowing Current % PO Negligible Minimum of two criteria No Fluid Accumulation Mild (non-severe) #1 Nutrition Diagnosis Inadequate oral intake Diagnosis Progress(for reassessment Continues documentation) Is patient on ventilator? Yes Is Patient Ambulatory and/or Out of Bed No REE-([facility]-confined to bed) 2421.060 Kcal/Kg value to use for calculation 14 Approximate Energy Requirements Using 1854 kcal/Kg Calculation Used for Recommendations Kcal/kg Additional Notes Protein needs: 2.5 g/kg IBW , 148 g Fluid needs: 1ml/kcal Nutrition Intervention Change Diet Order: Continue TF regimen as ordered Nutrition Support: Vital High Protein at 65 ml/hr flush 45 ml q4h Kcal 1,560 Protein (gm) 135 Fluid (mL) 1,304 Follow-Up By: 12/07/20 Additional Comments F/u for TF tolerance and respiratory status <IZABELLA MEEKS - Last Filed: 12/07/20 07:16> History Interval history: I saw and evaluated the patient. Discussed with the nurse practitioner and agree with their findings and plan as documented in this note. Hospitalist Physical - Constitutional Vitals: Temp Pulse Resp BP Pulse Ox 98.6 F 90 20 115/58 98 12/07/20 03:53 12/07/20 06:00 12/07/20 06:00 12/07/20 06:00 12/07/20 06:00 HEART Score - HEART Score Troponin: Troponin T < 0.010 ng/mL (0.00-0.029) 11/30/20 14:12 Results - Labs CBC & Chem 7: 12/07/20 04:00 12/07/20 05:00 Labs: Laboratory Last Values WBC 10.3 K/mm3 (4.5-11.0) 12/07/20 04:00 RBC 3.47 M/mm3 (3.65-5.03) L 12/07/20 04:00 Hgb 9.5 gm/dl (10.1-14.3) L 12/07/20 04:00 Hct 29.5 % (30.3-42.9) L 12/07/20 04:00 MCV 85 fl (79-97) 12/07/20 04:00 MCH 28 pg (28-32) 12/07/20 04:00 MCHC 32 % (30-34) 12/07/20 04:00 RDW 18.7 % (13.2-15.2) H 12/07/20 04:00 Plt Count 204 K/mm3 (140-440) 12/07/20 04:00 Lymph % (Auto) 13.1 % (13.4-35.0) L 12/05/20 11:04 [place] % (Auto) 6.7 % (0.0-7.3) 12/05/20 11:04 Eos % (Auto) 2.2 % (0.0-4.3) 12/05/20 11:04 Baso % (Auto) 0.4 % (0.0-1.8) 12/05/20 11:04 Lymph # (Auto) 1.7 K/mm3 (1.2-5.4) 12/05/20 11:04 [place] # (Auto) 0.9 K/mm3 (0.0-0.8) H 12/05/20 11:04 Eos # (Auto) 0.3 K/mm3 (0.0-0.4) 12/05/20 11:04 Baso # (Auto) 0.1 K/mm3 (0.0-0.1) 12/05/20 11:04 Add Manual Diff Complete 12/04/20 05:40 Total Counted 100 12/04/20 05:40 Seg Neutrophils % 77.6 % (40.0-70.0) H 12/05/20 11:04 Seg Neuts % (Manual) 74.0 % (40.0-70.0) H 12/04/20 05:40 Band Neutrophils % 16.0 % 12/04/20 05:40 Lymphocytes % (Manual) 2.0 % (13.4-35.0) L 12/04/20 05:40 Monocytes % (Manual) 5.0 % (0.0-7.3) 12/04/20 05:40 Eosinophils % (Manual) 2.0 % (0.0-4.3) 12/04/20 05:40 Basophils % (Manual) 1.0 % (0.0-1.8) 12/04/20 05:40 Nucleated RBC % Not Reportable 12/04/20 05:40 Seg Neutrophils # 10.0 K/mm3 (1.8-7.7) H 12/05/20 11:04 Seg Neutrophils # Man 16.1 K/mm3 (1.8-7.7) H 12/04/20 05:40 Band Neutrophils # 3.5 K/mm3 12/04/20 05:40 Lymphocytes # (Manual) 0.4 K/mm3 (1.2-5.4) L 12/04/20 05:40 Abs React Lymphs (Man) 0.0 K/mm3 12/04/20 05:40 Monocytes # (Manual) 1.1 K/mm3 (0.0-0.8) H 12/04/20 05:40 Eosinophils # (Manual) 0.4 K/mm3 (0.0-0.4) 12/04/20 05:40 Basophils # (Manual) 0.2 K/mm3 (0.0-0.1) H 12/04/20 05:40 Metamyelocytes # 0.0 K/mm3 12/04/20 05:40 Myelocytes # 0.0 K/mm3 12/04/20 05:40 Promyelocytes # 0.0 K/mm3 12/04/20 05:40 Blast Cells # 0.0 K/mm3 12/04/20 05:40 WBC Morphology Not Reportable 12/04/20 05:40 Hypersegmented Neuts Not Reportable 12/04/20 05:40 Hyposegmented Neuts Not Reportable 12/04/20 05:40 Hypogranular Neuts Not Reportable 12/04/20 05:40 Smudge Cells Not Reportable 12/04/20 05:40 Toxic Granulation Not Reportable 12/04/20 05:40 Toxic Vacuolation Not Reportable 12/04/20 05:40 Dohle Bodies Not Reportable 12/04/20 05:40 Pelger-Huet Anomaly Not Reportable 12/04/20 05:40 Solomon Rods Not Reportable 12/04/20 05:40 Platelet Estimate Not Reportable 12/04/20 05:40 Clumped Platelets 1+ 09/05/21 05:40 Plt Clumps, EDTA Not Reportable 12/04/20 05:40 Large Platelets Not Reportable 12/04/20 05:40 Giant Platelets Not Reportable 12/04/20 05:40 Platelet Satelliting Not Reportable 12/04/20 05:40 Plt Morphology Comment Not Reportable 12/04/20 05:40 RBC Morphology Normal 12/04/20 05:40 Dimorphic RBCs Not Reportable 12/04/20 05:40 Polychromasia Not Reportable 12/04/20 05:40 Hypochromasia Not Reportable 12/04/20 05:40 Poikilocytosis Not Reportable 12/04/20 05:40 Anisocytosis Not Reportable 12/04/20 05:40 Microcytosis Not Reportable 12/04/20 05:40 Macrocytosis Not Reportable 12/04/20 05:40 Spherocytes Not Reportable 12/04/20 05:40 Pappenheimer Bodies Not Reportable 12/04/20 05:40 Sickle Cells Not Reportable 12/04/20 05:40 Target Cells Not Reportable 12/04/20 05:40 Tear Drop Cells Not Reportable 12/04/20 05:40 Ovalocytes Not Reportable 12/04/20 05:40 Helmet Cells Not Reportable 12/04/20 05:40 [place] Bodies Not Reportable 12/04/20 05:40 [place] Rings Not Reportable 12/04/20 05:40 [place] Cells Not Reportable 12/04/20 05:40 Bite Cells Not Reportable 12/04/20 05:40 Crenated Cell Not Reportable 12/04/20 05:40 Elliptocytes Not Reportable 12/04/20 05:40 Acanthocytes (Spur) Not Reportable 12/04/20 05:40 Rouleaux Not Reportable 12/04/20 05:40 Hemoglobin C Crystals Not Reportable 12/04/20 05:40 Schistocytes Not Reportable 12/04/20 05:40 Malaria parasites Not Reportable 12/04/20 05:40 Charanjit Bodies Not Reportable 12/04/20 05:40 Hem Pathologist Commnt No 12/04/20 05:40 PT 13.9 Sec. (12.2-14.9) 12/07/20 04:00 INR 1.02 (0.87-1.13) 12/07/20 04:00 D-Dimer 1838.21 ng/mlDDU (0-234) H 12/04/20 10:41 ABG pH 7.374 (7.320-7.450) 12/07/20 04:00 POC ABG pCO2 55.9 mmHg (32.0-48.0) H 12/07/20 04:00 POC ABG pO2 96.5 mmHg (83-108) 12/07/20 04:00 POC ABG HCO3 31.9 12/07/20 04:00 ABG O2 Saturation 97.3 (0-100) 12/07/20 04:00 POC ABG Base Excess 5.4 12/07/20 04:00 ABG Hemoglobin 11.6 (12.0-17.5) L 12/07/20 04:00 ABG Oxyhemoglobin 96.2 (94-98) 12/07/20 04:00 ABG Methemoglobin 0.3 (0.0-1.5) 12/07/20 04:00 ABG Sodium 135.2 mmol/L (136.0-145.0) L 12/07/20 04:00 ABG Potassium 4.7 mmol/L (3.40-4.50) H 12/07/20 04:00 ABG Chloride 98.0 mmol/L (98-107) 12/07/20 04:00 ABG Glucose 141 mg/dL (65-95) H 12/07/20 04:00 Carboxyhemoglobin 0.8 (0.5-1.5) 12/07/20 04:00 FiO2 % 50.0 12/07/20 04:00 Sodium 137 mmol/L (137-145) 12/07/20 05:00 Potassium 4.6 mmol/L (3.6-5.0) 12/07/20 05:00 Chloride 96.6 mmol/L (98-107) L 12/07/20 05:00 Carbon Dioxide 35 mmol/L (22-30) H 12/07/20 05:00 Anion Gap 10 mmol/L 12/07/20 05:00 BUN 29 mg/dL (7-17) H 12/07/20 05:00 Creatinine 0.8 mg/dL (0.6-1.2) 12/07/20 05:00 Estimated GFR > 60 ml/min 12/07/20 05:00 BUN/Creatinine Ratio 36 % 12/07/20 05:00 Glucose 148 mg/dL (65-100) H 12/07/20 05:00 POC Glucose 139 mg/dL (70-105) H 12/07/20 05:28 Calcium 9.2 mg/dL (8.4-10.2) 12/07/20 05:00 Phosphorus 3.90 mg/dL (2.5-4.5) 12/07/20 04:00 Magnesium 1.90 mg/dL (1.7-2.3) 12/07/20 05:00 Ferritin 399.0 ng/mL (10.0-200.0) H 12/04/20 10:41 Total Bilirubin 0.30 mg/dL (0.1-1.2) 12/04/20 05:40 Direct Bilirubin < 0.2 mg/dL (0-0.2) 11/29/20 07:48 Indirect Bilirubin 0.0 mg/dL 11/29/20 07:48 AST 19 units/L (5-40) 12/04/20 05:40 ALT 28 units/L (7-56) 12/04/20 05:40 Alkaline Phosphatase 93 units/L (35-129) 12/04/20 05:40 Lactate Dehydrogenase 386 units/L (91-180) H 12/04/20 10:41 Total Creatine Kinase 1132 units/L (30-135) H 11/30/20 14:12 CK-MB (CK-2) 14.6 ng/mL (0.0-4.0) H 11/30/20 14:12 CK-MB (CK-2) Rel Index 1.2 (0-4) 11/30/20 14:12 Troponin T < 0.010 ng/mL (0.00-0.029) 11/30/20 14:12 C-Reactive Protein 34.30 mg/dL (0.00-1.30) H 12/04/20 10:41 Total Protein 6.2 g/dL (6.3-8.2) L 12/04/20 05:40 Albumin 2.6 g/dL (3.9-5) L 12/04/20 05:40 Albumin/Globulin Ratio 0.7 % 12/04/20 05:40 HCG, Qual Negative (Negative) 11/29/20 07:48 Arterial Blood Glucose 141 mg/dL (65-95) H 12/07/20 04:00 Arterial Blood Ionized Calcium 4.8 mg/dL (4.6-5.3) 12/07/20 04:00 Urine Color Lauren (Yellow) 12/04/20 07:30 Urine Turbidity Turbid (Clear) 12/04/20 07:30 Urine pH 5.0 (5.0-7.0) 12/04/20 07:30 Ur Specific [place] 1.011 (1.003-1.030) 12/04/20 07:30 Urine Protein 100 mg/dl mg/dL (Negative) 12/04/20 07:30 Urine Glucose (UA) Neg mg/dL (Negative) 12/04/20 07:30 Urine Ketones Neg mg/dL (Negative) 12/04/20 07:30 Urine Blood Lg (Negative) 12/04/20 07:30 Urine Nitrite Neg (Negative) 12/04/20 07:30 Urine Bilirubin Neg (Negative) 12/04/20 07:30 Urine Urobilinogen < 2.0 mg/dL (<2.0) 12/04/20 07:30 Ur Leukocyte Esterase Mod (Negative) 12/04/20 07:30 Urine WBC (Auto) > 182.0 /HPF (0.0-6.0) H 12/04/20 07:30 Urine RBC (Auto) 33.0 /HPF (0.0-6.0) 12/04/20 07:30 Urine WBC Clumps 3+ /HPF 12/04/20 07:30 WBC Casts 17 /LPF 12/04/20 07:30 Urine Mucus 3+ /HPF 12/04/20 07:30 Coronavirus (PCR) Positive (Negative) A 12/03/20 08:00 Microbiology: Microbiology 12/04/20 00:54 Peripheral/Venous Blood Culture - Preliminary NO GROWTH AFTER 72 HOURS 12/04/20 00:54 Peripheral/Venous Blood Culture - Preliminary NO GROWTH AFTER 72 HOURS Dash/IV: Voiding Method Indwelling Catheter Active Medications - Current Medications Current Medications: Generic Name Dose Route Start Last Admin Trade Name Freq PRN Reason Stop Dose Admin Acetaminophen 650 mg 12/04/20 00:39 12/05/20 16:29 Acetaminophen 325 Mg Tab PO 650 mg Q6H PRN Administration Fever >101 Albuterol 2.5 mg 11/29/20 15:22 Albuterol 2.5 Mg/3 Ml Nebu IH Q4HRT PRN Shortness Of Breath Albuterol/Ipratropium 1 ampul 11/29/20 20:00 12/07/20 03:58 Ipratropium/Albuterol Sulfate 3 Ml Ampul.Neb IH 1 ampul Q6HRT KRYSTAL Administration Alprazolam 1 mg 11/29/20 13:00 Alprazolam 1 Mg Tab PO Q6H PRN Anxiety Lipase/Protease/Amylase 1 each 11/29/20 15:23 Lipase 10,500/Protease 25,000/Amylase 43,750 (Units) Dr Ariza FEEDTUBE PRN PRN For Clogged Feeding Tube Ascorbic Acid 500 mg 12/04/20 22:00 12/06/20 21:21 Ascorbic Acid 500 Mg Tab PO 500 mg BID KRYSTAL Administration Dextrose 50 ml 12/05/20 10:34 Dextrose 50% In Water (25gm) 50 Ml Syringe IV Q30MIN PRN Hypoglycemia Protocol Diphenhydramine HCl 25 mg 12/07/20 10:00 Diphenhydramine 50 Mg/Ml Vial IV 12/08/20 10:01 Q24HR KRYSTAL Famotidine 20 mg 11/30/20 15:00 12/06/20 21:21 Famotidine 20 Mg/2 Ml Inj IV 20 mg BID KRYSTAL Administration Fentanyl 50 mcg 11/29/20 10:22 Fentanyl 100 Mcg/2 Ml Inj IV Q10MIN PRN ANALGESIA Fondaparinux 2.5 mg 11/29/20 22:00 12/06/20 21:23 Fondaparinux 2.5 Mg/0.5 Ml Inj SUB-Q 2.5 mg Q24H KRYSTAL Administration Gabapentin 600 mg 11/30/20 17:00 12/06/20 21:21 Gabapentin 500 Mg/10 Ml Oral Liqd PO 600 mg BID KRYSTAL Administration Hydrochlorothiazide 25 mg 12/06/20 14:00 12/06/20 16:05 Hydrochlorothiazide 25 Mg Tab PO 25 mg QDAY KRYSTAL Administration Hydrophilic Ointment 1 applic 12/01/20 08:54 Lip Therapy Vaseline TP Q2HR PRN Dry Lips Midazolam HCl 100 mg/ Sodium 100 mls @ 2 mls/hr 11/29/20 12:00 12/06/20 15:50 Chloride IV 2 mg/hr TITR KRYSTAL 2 mls/hr Titration Protocol 2 MG/HR Fentanyl Citrate 2,000 mcg in 100 mls @ 6.45 mls/hr 11/29/20 12:30 12/07/20 02:33 Fentanyl Drip Premix IV 3 mcg/kg/hr TITR KRYSTAL 19.35 mls/hr Administration Protocol 1 MCG/KG/HR Nicardipine HCl 50 mg/ Sodium 250 mls @ 25 mls/hr 12/03/20 08:00 12/04/20 03:26 Chloride IV 0 mg/hr TITR KRYSTAL 0 mls/hr Titration Protocol 5 MG/HR Cefepime HCl 2 gm in 100 mls @ 200 mls/hr 12/06/20 12:00 12/07/20 03:44 Cefepime/Ns 2 Gm/100 Ml IV 200 mls/hr Q8H KRYSTAL Administration Protocol Insulin Human Regular 0 units 12/05/20 12:00 12/07/20 05:39 Insulin Regular, Human 100 Units/1 Ml SUB-Q Not Given Q6HR [facility] Protocol Lorazepam 2 mg 11/29/20 12:00 12/03/20 02:34 Lorazepam 2 Mg/Ml Vial IV 2 mg Q4H PRN Administration Agitation Midazolam HCl 2 mg 11/29/20 10:22 12/06/20 16:07 Midazolam 2 Mg/2 Ml Inj IV 2 mg Q10MIN PRN Administration Sedation Montelukast Sodium 10 mg 11/29/20 22:00 12/06/20 21:23 Montelukast 10 Mg Tab PO 10 mg HS KRYSTAL Administration Multi-Ingred Cream/Lotion/Oil/Oint 1 applic 12/01/20 08:54 Mineral Oil/Petrolatum, White Ophth Oint 3.5 Gm OU Q4HR PRN Dry Eye(s) Senna/Docusate Sodium 1 tab 11/29/20 10:00 12/06/20 21:23 Sennosides/Docusate Sodium 8.6/50 Mg Tab FEEDTUBE 1 tab BID KRYSTAL Administration Simple Syrup 15 ml 11/29/20 15:23 Simple Syrup 15 Ml FEEDTUBE PRN PRN Hypoglycemia Simple Syrup 30 ml 11/29/20 15:23 Simple Syrup 15 Ml FEEDTUBE PRN PRN Hypoglycemia Sodium Bicarbonate 325 mg 11/29/20 15:23 Sodium Bicarbonate 325 Mg Tab FEEDTUBE PRN PRN For Clogged Feeding Tube Zinc Sulfate 220 mg 12/05/20 10:00 12/06/20 09:48 Zinc Sulfate 220 Mg Cap PO 220 mg QDAY KRYSTAL Administration Nutrition/Malnutrition Assess - Dietary Evaluation Nutrition/Malnutrition Findings: Nutrition Notes Start: 11/30/20 09:03 Freq: Status: Active Protocol: Document 12/05/20 10:40 CW (Rec: 12/05/20 10:56 CW [id number]) Nutrition Notes Initial or Follow up Reassessment Current Diagnosis Respiratory Failure Other Pertinent Diagnosis allergic reaction, alpha gal, hx HTN Current Diet Vital HP at 65 ml/hr Labs/Tests Last cmp 12/04 BUN 26 Cr 1.7 BG 157 Pertinent Medications Sen[place]ot Height 5 ft 6 in Weight 132.4 kg [place] Body Weight (kg) 59.09 BMI 47.1 Weight Status Morbidly Obese Subjective/Other Information Pt remains on mechanical vent. TF running at goal. No reports of intolerance at this time. Difficulty In Swallowing Current % PO Negligible Minimum of two criteria No Fluid Accumulation Mild (non-severe) #1 Nutrition Diagnosis Inadequate oral intake Diagnosis Progress(for reassessment Continues documentation) Is patient on ventilator? Yes Is Patient Ambulatory and/or Out of Bed No REE-([facility]-confined to bed) 2421.060 Kcal/Kg value to use for calculation 14 Approximate Energy Requirements Using 1854 kcal/Kg Calculation Used for Recommendations Kcal/kg Additional Notes Protein needs: 2.5 g/kg IBW , 148 g Fluid needs: 1ml/kcal Nutrition Intervention Change Diet Order: Continue TF regimen as ordered Nutrition Support: Vital High Protein at 65 ml/hr flush 45 ml q4h Kcal 1,560 Protein (gm) 135 Fluid (mL) 1,304 Follow-Up By: 12/07/20 Additional Comments F/u for TF tolerance and respiratory status
[2020-12-06] MEDS: hydroCHLOROthiazide 25 MG TAB PO SCH (16:05)
[2020-12-06] MEDS: MIDAZOLAM 2 MG/2 ML INJ IV PRN (16:07)
--- NOTE | 2020-12-06 16:11 | Event Note ---
Date: 12/06/20 CODE BLUE NOTE (Full dictation # [id number]) Please see dictated notes foir full details
--- NOTE | 2020-12-06 16:38 | Progress Note ---
Assessment and Plan Cultures: Blood culture no growth so far A/P: 40-year-old female past medical history of severe allergic reactions, morbid obesity, hypertension admitted with COVID-19 and respiratory failure #COVID-19: has been positive for >3 weeks. No therapy indicated at this time #Bilateral pneumonia: Possible secondary infection, recent development with new leukocytosis and fevers. Procalcitonin likely not helpful in the setting of NINI. #Acute sepsis: Present leukocytosis and fevers. Possibly secondary to pneumonia. #Acute hypoxic respiratory failure: On the vent #Severe allergic history Recs: -Continue cefepime given time spent in ICU -Avoiding vancomycin for now due to NINI, start if blood cultures turn positive. -Monitor renal function -No acute Covid therapy indicated given duration since onset Thank you for the consult, we will continue to follow. Joanne Ruth MD [facility] ([facility]) O: [phone] F: [phone] Subjective Date of service: 12/06/20 Principal diagnosis: Acute Hypoxemic Respiratory Failure; Angioedema;Obesity; leukocytosis Interval history: Remains febrile to 100.7 with a white count of 11. Cultures remain negative. CODE BLUE occurred today. Objective - Exam Narrative Exam: Physical exam deferred to reduce risk of transmission of COVID-19. Please refer to primary team's note. - Constitutional Vitals: Vital Signs Temp Pulse Resp BP Pulse Ox 100.7 F H 102 H 17 139/71 95 12/06/20 12:00 12/06/20 14:30 12/06/20 14:30 12/06/20 14:30 12/06/20 14:30 Temperature -Last 24 Hours Temperature 100.7 F Temperature 100.5 F Temperature 99.6 F Temperature 100.1 F Temperature 99.3 F - Labs CBC & Chem 7: 12/06/20 05:07 12/06/20 05:07 Labs: Abnormal lab results 12/05/20 12/05/20 12/06/20 Range/Units 17:31 23:37 04:00 RBC (3.65-5.03) M/mm3 Hgb (10.1-14.3) gm/dl Hct (30.3-42.9) % RDW (13.2-15.2) % ABG pH 7.471 H (7.320-7.450) POC ABG pO2 75.2 L (83-108) mmHg ABG Hemoglobin 10.4 L (12.0-17.5) ABG Sodium 133.7 L (136.0-145.0) mmol/L ABG Glucose 120 H (65-95) mg/dL Carbon Dioxide (22-30) mmol/L BUN (7-17) mg/dL Glucose (65-100) mg/dL POC Glucose 148 H 133 H (70-105) mg/dL Arterial Blood Glucose 120 H (65-95) mg/dL 12/06/20 12/06/20 12/06/20 Range/Units 05:07 05:07 05:09 RBC 3.37 L (3.65-5.03) M/mm3 Hgb 9.4 L (10.1-14.3) gm/dl Hct 28.4 L (30.3-42.9) % RDW 18.3 H (13.2-15.2) % ABG pH (7.320-7.450) POC ABG pO2 (83-108) mmHg ABG Hemoglobin (12.0-17.5) ABG Sodium (136.0-145.0) mmol/L ABG Glucose (65-95) mg/dL Carbon Dioxide 33 H (22-30) mmol/L BUN 25 H (7-17) mg/dL Glucose 131 H (65-100) mg/dL POC Glucose 122 H (70-105) mg/dL Arterial Blood Glucose (65-95) mg/dL 12/06/20 Range/Units 11:59 RBC (3.65-5.03) M/mm3 Hgb (10.1-14.3) gm/dl Hct (30.3-42.9) % RDW (13.2-15.2) % ABG pH (7.320-7.450) POC ABG pO2 (83-108) mmHg ABG Hemoglobin (12.0-17.5) ABG Sodium (136.0-145.0) mmol/L ABG Glucose (65-95) mg/dL Carbon Dioxide (22-30) mmol/L BUN (7-17) mg/dL Glucose (65-100) mg/dL POC Glucose 120 H (70-105) mg/dL Arterial Blood Glucose (65-95) mg/dL
[2020-12-06] MEDS: MONTELUKAST 10 MG TAB PO SCH (21:23)
[2020-12-06] MEDS: FONDAPARINUX 2.5 MG/0.5 ML INJ SUB-Q SCH (21:23)
--- NOTE | 2020-12-06 21:47 | Consultation ---
DATE OF CONSULTATION: 12/06/2020 CODE BLUE NOTE CHIEF COMPLAINT AND HISTORY OF PRESENT ILLNESS: The patient was apparently being cleaned and earlier was on sedation assessment trial. She remained on a fentanyl drip at about 4 mcg/kg per hour. The Versed was held. While being cleaned, the patient started to fight with the nursing staff and apparently bit down on her ET tube and desaturated very rapidly and then developed PEA arrest. We responded to the call right away, went into the room and found her little ashen at the face with O2 sats were around 60%. The board was placed under the patient right away. Chest pressure was started. I did perform chest compressions. At the same time, epinephrine was given, one round of epinephrine. She was pulseless at the initial presentation. After the first round of compressions, on the 1st pulse check, we got a pulse back. It was a very strong pulse. While she was being bagged and no longer biting on the tube, O2 sats came up to 98-99% rather rapidly. Color returned to her face, blood pressure was fine. She is not needing any vasopressors and so far is stable post-cardiac arrest. There was never any indication for any electrical shocks to be given. TID: [id number] RECEIPT: [id number] DOYLE/RAYA
[2020-12-06] MEDS ORDERED: diphenhydrAMINE 50 MG/ML VIAL IV SCH (22:00)
[2020-12-07] MEDS: fentaNYL DRIP Premix 2,000 MCG/100 ML BAG IV SCH ×5 (02:33→23:01)
[2020-12-07] MEDS: CEFEPIME/NS 2 GM/100 ML 2 GM/100 ML BAG IV SCH ×3 (03:44→20:06)
[2020-12-07] MEDS: IPRATROPIUM/ALBUTEROL SULFATE 3 ML AMPUL.NEB IH SCH ×3 (03:58→19:47)
[2020-12-07] MEDS: INSULIN REGULAR, HUMAN 100 UNITS/1 ML SUB-Q SCH ×3 (05:39→18:37)
[2020-12-07 05:54] LABS: Hematocrit 29.5 % (30.3-42.9); Hemoglobin 9.5 gm/dl (10.1-14.3); Mean Corpuscular HGB Conc 32 % (30-34); Mean Corpuscular Volume 85 fl (79-97); Platelet Count 204 K/mm3 (140-440); Red Blood Count 3.47 M/mm3 (3.65-5.03); Red Cell Distribution Width 18.7 % (13.2-15.2)
[2020-12-07 06:04] LABS: INR 1.02 (0.87-1.13)
[2020-12-07 06:10] LABS: BUN/Creatinine Ratio 36; Blood Urea Nitrogen 29 mg/dL (7-17); Calcium 9.2 mg/dL (8.4-10.2); Hemolysis Index 0
--- NOTE | 2020-12-07 06:25 | XRay Report ---
CHEST 1 VIEW INDICATION: hypoxia. COMPARISON: 3 days prior FINDINGS: Support devices: Unchanged. Heart: Stable. Lungs/Pleura: There is continued improvement in bilateral pulmonary opacities. No pneumothorax. IMPRESSION: 1. Mild improvement. Signer Name: Montrell Mclaughlin MD Signed: 12/07/2020 6:20 AM Workstation Name: [id number]
--- NOTE | 2020-12-07 11:16 | Progress Note ---
Assessment and Plan Acute hypoxemic respiratory failure Angioedema Morbid obesity Mild leukocytosis Hypertension. H/O alpha-gal syndrome (care plan and progress discussed with her Manoj including the fact that we are still awaiting a bed at [place]) - see CODE BLUE note - plan is still to wean FiO2 to 40% then peep to 8 cm H2O slowly for sat's > 92% - continue anti-infectives per ID recommendations - await [facility] [place] transfer - continue to wean supplemental oxygen for target O2 sat's > 92% acutely - taper benadryl and continue Pepcid - continue care as below otherwise; - continue Daily SAT and SBT assessment as tolerated - VAP bundle addressed - continue lung protective strategies - continue bronchodilators with pulmonary hygiene per RT - wean per pulmonary driven protocols otherwise - continue accuchecks with glycemic control per SSI (While critically ill target blood glucose of 140-180 mg/dL; avoid hypoglycemia) - sedation prn for target RASS -1 to -2 - avoid nephrotoxins, renally dose all medications - continue to avoid benzodiazepine's, reduce the possibility of delirium - AB's per ID rec's - prn analgesia per CPOT score - Maintenance of sleep-wake cycle, avoid delirium - continue enteral nutritional support at goal rate as tolerated - G.I. & VTE prophylaxis - PT/OT/ROM exercises - continue mobility protocols for pressure ulcer prophylaxis - Monitor hemodynamics closely - continue other care per attending / other consultants - discharge planning ongoing concurrently COVID SPECIFIC INTERVENTIONS - Continue contact and airborne isolation - Remdesivir as per ID/Pulmonary developed protocols (not indicated re: duration of illness) - continue systemic steroids for severe COVID-19 infection empirically (no steroids re: COVID recovery status and h/o allergy to Solumedrol) - follow repeat COVID tests results - zinc and vitamin C supplementation - Monitor inflammatory markers per facility protocol - ferritin, Ddimer, CRP - therapeutic anticoagulation per system Protocol based on d-dimer and clinical considerations (VTE prophylaxis) .... Re-evaluate in am & prn CONDITION: CRITICAL PROGNOSIS: GUARDED CODE STATUS: FULL CODE The high probability of a clinically significant, sudden or life-threatening deterioration of the [respiratory, cardiovascular & immunologic] system(s) required my full and direct attention, intervention and personal management. The aggregate critical care time was [34] minutes without overlap. Time includes spent on; [x] Data Review and interpretation [x] Patient assessment and monitoring of vital signs [x] Documentation [x] Medication orders and management Subjective Date of service: 12/07/20 Principal diagnosis: Acute Hypoxemic Respiratory Failure; Angioedema;Obesity; leukocytosis Interval history: Patient is seen today for: Acute hypoxemic respiratory failure; Angioedema; Morbid obesity; leukocytosis; HTN; H/O alpha-gal syndrome Seen and examined at bedside; 24hour events reviewed; nursing and respiratory care staff consulted; no adverse overnight events reported to me; resting in bed; remains on MVS; decompensated during sedation vacation and now s/p CODE freddy e; no N/V/F/C Objective Vital Signs - 12hr 12/06/20 12/06/20 12/07/20 23:30 23:35 00:00 Temperature 98.6 F Pulse Rate 90 90 Pulse Rate [ Throughout] Respiratory 20 20 Rate Respiratory Rate [ Throughout] Blood Pressure 119/56 110/56 O2 Sat by Pulse 98 98 Oximetry 12/07/20 12/07/20 12/07/20 00:30 00:34 00:42 Temperature Pulse Rate 91 H 90 90 Pulse Rate [ Throughout] Respiratory 20 Rate Respiratory Rate [ Throughout] Blood Pressure 121/60 121/60 O2 Sat by Pulse 98 97 Oximetry 12/07/20 12/07/20 12/07/20 01:00 01:30 02:00 Temperature Pulse Rate 90 98 H 107 H Pulse Rate [ Throughout] Respiratory 20 19 12 Rate Respiratory Rate [ Throughout] Blood Pressure 116/59 125/65 137/80 O2 Sat by Pulse 96 97 97 Oximetry 12/07/20 12/07/20 12/07/20 02:30 03:00 03:31 Temperature Pulse Rate 117 H 106 H 104 H Pulse Rate [ Throughout] Respiratory 19 18 17 Rate Respiratory Rate [ Throughout] Blood Pressure 159/82 138/76 156/69 O2 Sat by Pulse 97 99 98 Oximetry 12/07/20 12/07/20 12/07/20 03:53 04:00 04:30 Temperature 98.6 F Pulse Rate 110 H 104 H Pulse Rate [ 109 H Throughout] Respiratory 13 18 Rate Respiratory 24 Rate [ Throughout] Blood Pressure 147/75 136/71 O2 Sat by Pulse 98 98 Oximetry 12/07/20 12/07/20 12/07/20 05:00 05:30 06:00 Temperature Pulse Rate 99 H 97 H 90 Pulse Rate [ Throughout] Respiratory 11 L 20 20 Rate Respiratory Rate [ Throughout] Blood Pressure 126/60 130/66 115/58 O2 Sat by Pulse 98 98 98 Oximetry 12/07/20 12/07/20 12/07/20 06:30 07:00 07:30 Temperature Pulse Rate 90 91 H 91 H Pulse Rate [ Throughout] Respiratory 20 20 20 Rate Respiratory Rate [ Throughout] Blood Pressure 124/53 123/57 110/59 O2 Sat by Pulse 98 98 98 Oximetry 12/07/20 12/07/20 12/07/20 08:00 08:01 08:30 Temperature 99.1 F Pulse Rate 95 H 94 H Pulse Rate [ Throughout] Respiratory 15 20 Rate Respiratory Rate [ Throughout] Blood Pressure 130/68 118/57 O2 Sat by Pulse 99 99 98 Oximetry 12/07/20 12/07/20 12/07/20 08:39 09:00 09:30 Temperature Pulse Rate 98 H 99 H 101 H Pulse Rate [ 99 H Throughout] Respiratory 22 20 Rate Respiratory 22 Rate [ Throughout] Blood Pressure 118/57 114/64 116/58 O2 Sat by Pulse 99 99 98 Oximetry 12/07/20 12/07/20 12/07/20 10:00 10:30 11:00 Temperature Pulse Rate 96 H 97 H 97 H Pulse Rate [ Throughout] Respiratory 20 20 20 Rate Respiratory Rate [ Throughout] Blood Pressure 112/58 116/57 114/59 O2 Sat by Pulse 97 97 97 Oximetry Constitutional: no acute distress (sedated), other (kianna g obese female without increased respiratory effort at rest on MVS) Eyes: non-icteric ENT: oropharynx moist, other (ETT 23 cm JOSELYN) Neck: supple, no lymphadenopathy, no JVD, other (large circumference; + healed trach scar) Effort: mildly labored Ascultation: Bilateral: diminished breath sounds, rhonchi Percussion: Bilateral: not dull Cardiovascular: regular rate and rhythm Gastrointestinal: normoactive bowel sounds, soft, non-tender, non-distended Integumentary: normal Extremities: no cyanosis, no edema, pink and warm, pulses normal Neurologic: non-focal exam, pupils equal and round, CN II-XII normal, motor strength normal and Psychiatric: other (sedated) CBC and BMP: 12/13/20 04:52 12/13/20 04:52 ABG, PT/INR, D-dimer: ABG ABG pH 7.374 (7.320-7.450) 12/07/20 04:00 POC ABG pCO2 55.9 mmHg (32.0-48.0) H 12/07/20 04:00 POC ABG pO2 96.5 mmHg (83-108) 12/07/20 04:00 POC ABG HCO3 31.9 12/07/20 04:00 ABG O2 Saturation 97.3 (0-100) 12/07/20 04:00 PT/INR, D-dimer PT 13.9 Sec. (12.2-14.9) 12/07/20 04:00 INR 1.02 (0.87-1.13) 12/07/20 04:00 D-Dimer 1838.21 ng/mlDDU (0-234) H 12/04/20 10:41 Abnormal lab findings: Abnormal Labs 11/29/20 11/29/20 11/29/20 07:48 07:48 07:48 WBC 11.3 H RBC Hgb Hct RDW 18.0 H Lymph % (Auto) [place] # (Auto) Seg Neutrophils % Seg Neuts % (Manual) Lymphocytes % (Manual) Seg Neutrophils # 7.9 H Seg Neutrophils # Man Lymphocytes # (Manual) Monocytes # (Manual) Basophils # (Manual) D-Dimer ABG pH POC ABG pCO2 POC ABG pO2 ABG Hemoglobin ABG Oxyhemoglobin ABG Sodium ABG Potassium ABG Glucose Carboxyhemoglobin Sodium 135 L Chloride Carbon Dioxide BUN Creatinine Glucose 204 H POC Glucose Ferritin Lactate Dehydrogenase Total Creatine Kinase CK-MB (CK-2) C-Reactive Protein Total Protein Albumin 3.7 L Arterial Blood Glucose Urine WBC (Auto) Coronavirus (PCR) 11/29/20 11/30/20 11/30/20 11:37 04:27 11:22 WBC RBC Hgb Hct RDW Lymph % (Auto) [place] # (Auto) Seg Neutrophils % Seg Neuts % (Manual) Lymphocytes % (Manual) Seg Neutrophils # Seg Neutrophils # Man Lymphocytes # (Manual) Monocytes # (Manual) Basophils # (Manual) D-Dimer ABG pH 7.318 L POC ABG pCO2 POC ABG pO2 76.1 L 196.4 H ABG Hemoglobin 11.96 L ABG Oxyhemoglobin 92.4 L 98.5 H ABG Sodium 133.7 L ABG Potassium 5.0 H ABG Glucose 171 H Carboxyhemoglobin 2.5 H Sodium Chloride Carbon Dioxide BUN Creatinine Glucose POC Glucose 157 H Ferritin Lactate Dehydrogenase Total Creatine Kinase CK-MB (CK-2) C-Reactive Protein Total Protein Albumin Arterial Blood Glucose 171 H Urine WBC (Auto) Coronavirus (PCR) 11/30/20 11/30/20 11/30/20 14:12 17:19 23:42 WBC RBC Hgb Hct RDW Lymph % (Auto) [place] # (Auto) Seg Neutrophils % Seg Neuts % (Manual) Lymphocytes % (Manual) Seg Neutrophils # Seg Neutrophils # Man Lymphocytes # (Manual) Monocytes # (Manual) Basophils # (Manual) D-Dimer ABG pH POC ABG pCO2 POC ABG pO2 ABG Hemoglobin ABG Oxyhemoglobin ABG Sodium ABG Potassium ABG Glucose Carboxyhemoglobin Sodium Chloride Carbon Dioxide BUN Creatinine Glucose POC Glucose 135 H 121 H Ferritin Lactate Dehydrogenase Total Creatine Kinase 1132 H CK-MB (CK-2) 14.6 H C-Reactive Protein Total Protein Albumin Arterial Blood Glucose Urine WBC (Auto) Coronavirus (PCR) 12/01/20 12/01/20 12/01/20 03:30 04:21 06:16 WBC RBC Hgb Hct RDW Lymph % (Auto) [place] # (Auto) Seg Neutrophils % Seg Neuts % (Manual) Lymphocytes % (Manual) Seg Neutrophils # Seg Neutrophils # Man Lymphocytes # (Manual) Monocytes # (Manual) Basophils # (Manual) D-Dimer ABG pH POC ABG pCO2 POC ABG pO2 37.6 L 76.2 L ABG Hemoglobin 10.4 L 10.8 L ABG Oxyhemoglobin 76.4 L 93.7 L ABG Sodium 112.8 L 110.9 L ABG Potassium ABG Glucose 103 H 107 H Carboxyhemoglobin Sodium Chloride Carbon Dioxide BUN Creatinine Glucose POC Glucose 129 H Ferritin Lactate Dehydrogenase Total Creatine Kinase CK-MB (CK-2) C-Reactive Protein Total Protein Albumin Arterial Blood Glucose 103 H 107 H Urine WBC (Auto) Coronavirus (PCR) 12/02/20 12/02/20 12/02/20 04:00 12:02 17:10 WBC RBC Hgb Hct RDW Lymph % (Auto) [place] # (Auto) Seg Neutrophils % Seg Neuts % (Manual) Lymphocytes % (Manual) Seg Neutrophils # Seg Neutrophils # Man Lymphocytes # (Manual) Monocytes # (Manual) Basophils # (Manual) D-Dimer ABG pH 7.306 L POC ABG pCO2 58.0 H POC ABG pO2 58.5 L ABG Hemoglobin 11.4 L ABG Oxyhemoglobin 86.9 L ABG Sodium 124.7 L ABG Potassium ABG Glucose 118 H Carboxyhemoglobin Sodium Chloride Carbon Dioxide BUN Creatinine Glucose POC Glucose 143 H 134 H Ferritin Lactate Dehydrogenase Total Creatine Kinase CK-MB (CK-2) C-Reactive Protein Total Protein Albumin Arterial Blood Glucose 118 H Urine WBC (Auto) Coronavirus (PCR) 12/03/20 12/03/20 12/04/20 05:10 08:00 03:32 WBC RBC Hgb Hct RDW Lymph % (Auto) [place] # (Auto) Seg Neutrophils % Seg Neuts % (Manual) Lymphocytes % (Manual) Seg Neutrophils # Seg Neutrophils # Man Lymphocytes # (Manual) Monocytes # (Manual) Basophils # (Manual) D-Dimer ABG pH 7.272 L POC ABG pCO2 60.1 H 54.6 H POC ABG pO2 82.8 L 78.6 L ABG Hemoglobin 11.4 L ABG Oxyhemoglobin ABG Sodium 132.2 L 130.2 L ABG Potassium ABG Glucose 166 H 164 H Carboxyhemoglobin 0.4 L Sodium Chloride Carbon Dioxide BUN Creatinine Glucose POC Glucose Ferritin Lactate Dehydrogenase Total Creatine Kinase CK-MB (CK-2) C-Reactive Protein Total Protein Albumin Arterial Blood Glucose 166 H 164 H Urine WBC (Auto) Coronavirus (PCR) Positive A 12/04/20 12/04/20 12/04/20 05:40 05:40 07:30 WBC 21.7 H RBC Hgb Hct RDW 18.2 H Lymph % (Auto) [place] # (Auto) Seg Neutrophils % Seg Neuts % (Manual) 74.0 H Lymphocytes % (Manual) 2.0 L Seg Neutrophils # Seg Neutrophils # Man 16.1 H Lymphocytes # (Manual) 0.4 L Monocytes # (Manual) 1.1 H Basophils # (Manual) 0.2 H D-Dimer ABG pH POC ABG pCO2 POC ABG pO2 ABG Hemoglobin ABG Oxyhemoglobin ABG Sodium ABG Potassium ABG Glucose Carboxyhemoglobin Sodium Chloride Carbon Dioxide BUN 26 H Creatinine 1.7 H D Glucose 157 H POC Glucose Ferritin Lactate Dehydrogenase Total Creatine Kinase CK-MB (CK-2) C-Reactive Protein Total Protein 6.2 L Albumin 2.6 L Arterial Blood Glucose Urine WBC (Auto) > 182.0 H Coronavirus (PCR) 12/04/20 12/04/20 12/04/20 10:41 10:41 10:41 WBC RBC Hgb Hct RDW Lymph % (Auto) [place] # (Auto) Seg Neutrophils % Seg Neuts % (Manual) Lymphocytes % (Manual) Seg Neutrophils # Seg Neutrophils # Man Lymphocytes # (Manual) Monocytes # (Manual) Basophils # (Manual) D-Dimer 1838.21 H ABG pH POC ABG pCO2 POC ABG pO2 ABG Hemoglobin ABG Oxyhemoglobin ABG Sodium ABG Potassium ABG Glucose Carboxyhemoglobin Sodium Chloride Carbon Dioxide BUN Creatinine Glucose POC Glucose Ferritin 399.0 H Lactate Dehydrogenase 386 H Total Creatine Kinase CK-MB (CK-2) C-Reactive Protein 34.30 H Total Protein Albumin Arterial Blood Glucose Urine WBC (Auto) Coronavirus (PCR) 12/04/20 12/05/20 12/05/20 23:58 00:10 00:45 WBC RBC Hgb Hct RDW Lymph % (Auto) [place] # (Auto) Seg Neutrophils % Seg Neuts % (Manual) Lymphocytes % (Manual) Seg Neutrophils # Seg Neutrophils # Man Lymphocytes # (Manual) Monocytes # (Manual) Basophils # (Manual) D-Dimer ABG pH POC ABG pCO2 55.5 H POC ABG pO2 ABG Hemoglobin 11.2 L ABG Oxyhemoglobin ABG Sodium 135.0 L ABG Potassium 4.6 H ABG Glucose 165 H Carboxyhemoglobin Sodium Chloride Carbon Dioxide BUN Creatinine Glucose POC Glucose 134 H 146 H Ferritin Lactate Dehydrogenase Total Creatine Kinase CK-MB (CK-2) C-Reactive Protein Total Protein Albumin Arterial Blood Glucose 165 H Urine WBC (Auto) Coronavirus (PCR) 12/05/20 12/05/20 12/05/20 11:04 11:04 11:52 WBC 13.0 H RBC 3.61 L Hgb Hct RDW 18.8 H Lymph % (Auto) 13.1 L [place] # (Auto) 0.9 H Seg Neutrophils % 77.6 H Seg Neuts % (Manual) Lymphocytes % (Manual) Seg Neutrophils # 10.0 H Seg Neutrophils # Man Lymphocytes # (Manual) Monocytes # (Manual) Basophils # (Manual) D-Dimer ABG pH POC ABG pCO2 POC ABG pO2 ABG Hemoglobin ABG Oxyhemoglobin ABG Sodium ABG Potassium ABG Glucose Carboxyhemoglobin Sodium Chloride Carbon Dioxide 31 H BUN 21 H Creatinine Glucose 152 H POC Glucose 121 H Ferritin Lactate Dehydrogenase Total Creatine Kinase CK-MB (CK-2) C-Reactive Protein Total Protein Albumin Arterial Blood Glucose Urine WBC (Auto) Coronavirus (PCR) 12/05/20 12/05/20 12/06/20 17:31 23:37 04:00 WBC RBC Hgb Hct RDW Lymph % (Auto) [place] # (Auto) Seg Neutrophils % Seg Neuts % (Manual) Lymphocytes % (Manual) Seg Neutrophils # Seg Neutrophils # Man Lymphocytes # (Manual) Monocytes # (Manual) Basophils # (Manual) D-Dimer ABG pH 7.471 H POC ABG pCO2 POC ABG pO2 75.2 L ABG Hemoglobin 10.4 L ABG Oxyhemoglobin ABG Sodium 133.7 L ABG Potassium ABG Glucose 120 H Carboxyhemoglobin Sodium Chloride Carbon Dioxide BUN Creatinine Glucose POC Glucose 148 H 133 H Ferritin Lactate Dehydrogenase Total Creatine Kinase CK-MB (CK-2) C-Reactive Protein Total Protein Albumin Arterial Blood Glucose 120 H Urine WBC (Auto) Coronavirus (PCR) 12/06/20 12/06/20 12/06/20 05:07 05:07 05:09 WBC RBC 3.37 L Hgb 9.4 L Hct 28.4 L RDW 18.3 H Lymph % (Auto) [place] # (Auto) Seg Neutrophils % Seg Neuts % (Manual) Lymphocytes % (Manual) Seg Neutrophils # Seg Neutrophils # Man Lymphocytes # (Manual) Monocytes # (Manual) Basophils # (Manual) D-Dimer ABG pH POC ABG pCO2 POC ABG pO2 ABG Hemoglobin ABG Oxyhemoglobin ABG Sodium ABG Potassium ABG Glucose Carboxyhemoglobin Sodium Chloride Carbon Dioxide 33 H BUN 25 H Creatinine Glucose 131 H POC Glucose 122 H Ferritin Lactate Dehydrogenase Total Creatine Kinase CK-MB (CK-2) C-Reactive Protein Total Protein Albumin Arterial Blood Glucose Urine WBC (Auto) Coronavirus (PCR) 12/06/20 12/06/20 12/06/20 11:59 16:17 17:30 WBC RBC Hgb Hct RDW Lymph % (Auto) [place] # (Auto) Seg Neutrophils % Seg Neuts % (Manual) Lymphocytes % (Manual) Seg Neutrophils # Seg Neutrophils # Man Lymphocytes # (Manual) Monocytes # (Manual) Basophils # (Manual) D-Dimer ABG pH POC ABG pCO2 61.8 H POC ABG pO2 180.5 H ABG Hemoglobin ABG Oxyhemoglobin ABG Sodium ABG Potassium ABG Glucose 142 H Carboxyhemoglobin Sodium Chloride Carbon Dioxide BUN Creatinine Glucose POC Glucose 120 H 114 H Ferritin Lactate Dehydrogenase Total Creatine Kinase CK-MB (CK-2) C-Reactive Protein Total Protein Albumin Arterial Blood Glucose 142 H Urine WBC (Auto) Coronavirus (PCR) 12/06/20 12/07/20 12/07/20 23:09 04:00 04:00 WBC RBC 3.47 L Hgb 9.5 L Hct 29.5 L RDW 18.7 H Lymph % (Auto) [place] # (Auto) Seg Neutrophils % Seg Neuts % (Manual) Lymphocytes % (Manual) Seg Neutrophils # Seg Neutrophils # Man Lymphocytes # (Manual) Monocytes # (Manual) Basophils # (Manual) D-Dimer ABG pH POC ABG pCO2 55.9 H POC ABG pO2 ABG Hemoglobin 11.6 L ABG Oxyhemoglobin ABG Sodium 135.2 L ABG Potassium 4.7 H ABG Glucose 141 H Carboxyhemoglobin Sodium Chloride Carbon Dioxide BUN Creatinine Glucose POC Glucose 112 H Ferritin Lactate Dehydrogenase Total Creatine Kinase CK-MB (CK-2) C-Reactive Protein Total Protein Albumin Arterial Blood Glucose 141 H Urine WBC (Auto) Coronavirus (PCR) 12/07/20 12/07/20 05:00 05:28 WBC RBC Hgb Hct RDW Lymph % (Auto) [place] # (Auto) Seg Neutrophils % Seg Neuts % (Manual) Lymphocytes % (Manual) Seg Neutrophils # Seg Neutrophils # Man Lymphocytes # (Manual) Monocytes # (Manual) Basophils # (Manual) D-Dimer ABG pH POC ABG pCO2 POC ABG pO2 ABG Hemoglobin ABG Oxyhemoglobin ABG Sodium ABG Potassium ABG Glucose Carboxyhemoglobin Sodium Chloride 96.6 L Carbon Dioxide 35 H BUN 29 H Creatinine Glucose 148 H POC Glucose 139 H Ferritin Lactate Dehydrogenase Total Creatine Kinase CK-MB (CK-2) C-Reactive Protein Total Protein Albumin Arterial Blood Glucose Urine WBC (Auto) Coronavirus (PCR) Chest x-ray: image reviewed Allied health notes reviewed: nursing
[2020-12-07] MEDS: SENNOSIDES/DOCUSATE SODIUM 8.6/50 MG TAB FEEDTUBE SCH ×2 (11:18→21:43)
[2020-12-07] MEDS: hydroCHLOROthiazide 25 MG TAB PO SCH (11:18)
[2020-12-07] MEDS: FAMOTIDINE 20 MG/2 ML INJ IV SCH ×2 (11:18→21:43)
[2020-12-07] MEDS: ASCORBIC ACID 500 MG TAB PO SCH ×2 (11:18→21:43)
[2020-12-07] MEDS: ZINC SULFATE 220 MG CAP PO SCH (11:18)
[2020-12-07] MEDS: diphenhydrAMINE 50 MG/ML VIAL IV SCH (11:18)
[2020-12-07] MEDS: GABAPENTIN 500 MG/10 ML ORAL LIQD PO SCH ×2 (11:19→21:43)
[2020-12-07] MEDS: MIDAZOLAM 100 MG in SODIUM CHLORIDE 0.9% 80 ML IV SCH (13:22)
--- NOTE | 2020-12-07 16:18 | Progress Note ---
Assessment and Plan Cultures: Blood culture no growth so far Urine culture: Gram-negative martín awaiting identification. A/P: 40-year-old female past medical history of severe allergic reactions, morbid obesity, hypertension admitted with COVID-19 and respiratory failure #COVID-19: has been positive for >3 weeks. No therapy indicated at this time #Bilateral pneumonia: Possible secondary infection, recent development with new leukocytosis and fevers. Procalcitonin likely not helpful in the setting of NINI. #Acute sepsis: Present leukocytosis and fevers. Possibly secondary to pneumonia. #Acute hypoxic respiratory failure: On the vent #Severe allergic history Recs: -Continue cefepime given time spent in ICU -Follow-up urine cultures for finalization. -Avoiding vancomycin for now due to NINI, start if blood cultures turn positive. -Monitor renal function -No acute Covid therapy indicated given duration since onset Thank you for the consult, we will continue to follow. Joanne Ruth MD [facility] ([facility]) O: [phone] F: [phone] Subjective Date of service: 12/07/20 Principal diagnosis: Acute Hypoxemic Respiratory Failure; Angioedema;Obesity; leukocytosis Interval history: Improving fever curve, last fever was last night. White count normal. Urine culture with a gram-negative martín pending finalization. Remains on the vent. Imaging personally reviewed: Chest x-ray: Mild improvement in bilateral opacities. Objective - Exam Narrative Exam: Physical exam deferred to reduce risk of transmission of COVID-19. Please refer to primary team's note. - Constitutional Vitals: Vital Signs Temp Pulse Resp BP Pulse Ox 99 F 91 H 20 109/56 98 12/07/20 12:00 12/07/20 14:30 12/07/20 14:30 12/07/20 14:30 12/07/20 14:30 Temperature -Last 24 Hours Temperature 99 F Temperature 99.1 F Temperature 98.6 F Temperature 98.6 F Temperature 100.2 F - Labs CBC & Chem 7: 12/07/20 04:00 12/07/20 05:00 Labs: Abnormal lab results 12/06/20 12/06/20 12/06/20 Range/Units 16:17 17:30 23:09 RBC (3.65-5.03) M/mm3 Hgb (10.1-14.3) gm/dl Hct (30.3-42.9) % RDW (13.2-15.2) % POC ABG pCO2 61.8 H (32.0-48.0) mmHg POC ABG pO2 180.5 H (83-108) mmHg ABG Hemoglobin (12.0-17.5) ABG Sodium (136.0-145.0) mmol/L ABG Potassium (3.40-4.50) mmol/L ABG Glucose 142 H (65-95) mg/dL Chloride (98-107) mmol/L Carbon Dioxide (22-30) mmol/L BUN (7-17) mg/dL Glucose (65-100) mg/dL POC Glucose 114 H 112 H (70-105) mg/dL Arterial Blood Glucose 142 H (65-95) mg/dL 12/07/20 12/07/20 12/07/20 Range/Units 04:00 04:00 05:00 RBC 3.47 L (3.65-5.03) M/mm3 Hgb 9.5 L (10.1-14.3) gm/dl Hct 29.5 L (30.3-42.9) % RDW 18.7 H (13.2-15.2) % POC ABG pCO2 55.9 H (32.0-48.0) mmHg POC ABG pO2 (83-108) mmHg ABG Hemoglobin 11.6 L (12.0-17.5) ABG Sodium 135.2 L (136.0-145.0) mmol/L ABG Potassium 4.7 H (3.40-4.50) mmol/L ABG Glucose 141 H (65-95) mg/dL Chloride 96.6 L (98-107) mmol/L Carbon Dioxide 35 H (22-30) mmol/L BUN 29 H (7-17) mg/dL Glucose 148 H (65-100) mg/dL POC Glucose (70-105) mg/dL Arterial Blood Glucose 141 H (65-95) mg/dL 12/07/20 12/07/20 Range/Units 05:28 12:20 RBC (3.65-5.03) M/mm3 Hgb (10.1-14.3) gm/dl Hct (30.3-42.9) % RDW (13.2-15.2) % POC ABG pCO2 (32.0-48.0) mmHg POC ABG pO2 (83-108) mmHg ABG Hemoglobin (12.0-17.5) ABG Sodium (136.0-145.0) mmol/L ABG Potassium (3.40-4.50) mmol/L ABG Glucose (65-95) mg/dL Chloride (98-107) mmol/L Carbon Dioxide (22-30) mmol/L BUN (7-17) mg/dL Glucose (65-100) mg/dL POC Glucose 139 H 130 H (70-105) mg/dL Arterial Blood Glucose (65-95) mg/dL
--- NOTE | 2020-12-07 19:48 | Progress Note ---
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 Neuro: h/o migraines, peripheral neuropathy -Sedated with fentanyl, Versed -Goal RASS 0 to -1 -Avoid delirium -SAT trials when appropriate -Xanax as needed -Scheduled gabapentin -Bilateral restraints for safety Cardio: ST,h/o HTN, s/p hypertensive urgency, s/p cardiac arrest -S/p Cardene drip -Blood pressure monitoring per protocol -Restarted home hydrochlorothiazide -S/p cardiac arrest on 12/06 Resp: Acute hypoxic respiratory failure, severe tracheal stenosis, bronchial asthma exacerbation -Patient was intubated in the emergency department for ventilation support due to severe angioedema -CCM consulted, appreciate recommendations -VAP bundle -Daily SBT trial when appropriate -Daily SPO2 monitoring -Daily CXR and ABG -A.m. vent settings assist control TV 450, rate 20, PEEP 10, 50% FiO2 -Intubated with 6 oh ETT at 20 at the lips -See RT notes for weaning -Steroids GI: Morbid obesity -Nutrition consulted -Tube feedings at goal -Bowel regimen with Senokot -24-hour net -3709 -PPI : Acute kidney injury 2/2 Vasomotor nephropathy -Presented with a BUN/creatinine of 0.8/10 which increased to 1.7/26 on 12/04 but no down trending -Significant output -Daily weights -Avoid nephrotoxic medications -Renally dose medications -Dash -Trend BMP ID: Acute sepsis, hereditary idiopathic angioedema and urticia, Alpha gal syndrome, COVID-19 infection, febrile illness, allergic reaction, gram-negative rasheed in urine culture -Infectious disease consulted, appreciate recommendations -h/o multiple intubations and tracheostomy in the past, patient has multiple allergies -Steroids, Benadryl -Outpatient water mechanic/ENT follow-up upon discharge -Per the patient has been positive for COVID-19 for approximately 20 days -ABX per ID: Escalated to cefepime from azithromycin and ceftriaxone -Droplet/agitation precautions -Per ID avoid vancomycin due to NINI however start if blood cultures turn positive -Follow WBC and culture data -Follow fever curve -Per ID no acute therapy indicated given duration since onset Endo: h/o DM type II, hyperglycemia -SSI -Avoid hypoglycemia -BG every 6 Heme: Leukocytosis -Trend CBC -Patient's antibiotic therapy -Patient is also on steroids -Bilateral lower extremity Doppler sound pending-> per 's request, patient is currently anticoagulated on Arixtra due to allergies to pork/porcine containing products The high probability of a clinically significant, sudden or life threatening deterioration of the [multi] system(s) required my full and direct attention, intervention and personal management. The aggregate critical care time was [90] minutes. This time is in addition to time spent performing reported procedures but includes the following: [x] Data Review and interpretation [x] Patient assessment and monitoring of vital signs [x] Documentation [x] Medication orders and management Disposition Plan: ICU; pending transfer to [place] Total Time Spent with Patient (Minutes): 90 History Interval history: This is a 39-year-old female with HTN, migraines, asthma, peripheral neuropathy, morbid obesity severe tracheal stenosis, idiopathic heredity angioedema and uticaria, alphagal syndrome s/p trach and multiple intubations who presented to emergency department on 11/29 for allergic reaction. Patient was intubated in the emergency department. Per family IV Benadryl, ketamine and Decadron work for spasms and stridor. Patient reportedly used EpiPen prior to arrival to emergency department. Patient is a being admitted to the hospital service with consult to [facility] for acute respiratory failure with hypoxemia secondary to hereditary angioedema and allergic reaction, hypertensive urgency. 11/30: Patient is on vent but awake and communicative. She is anxious. Patient does not know what triggered current recurrence of angioedema. FiO2 35%. H emodynamically stable. Discussed with nursing staff and the patient, she communicates with writing. 12/01: Patient remains on vent and sedated. Current FiO2 30%. No acute events from overnight reported. Angioedema of face seems to improving. Hemodynamically stable. Pulmonary managing ventilator. Will be extubated when angioedema improved significantly. Discussed with the nursing staff. 12/02/20; Dr. Estrada recommended to initiate transfer to [facility] under the care of patient's ENT surgeon Dr. Carias I called [place] transfer center at [phone] and requested a transfer, di scussed in detail with the transfer center nurse Aleta She she took all the patient's information and added the name of the patient to the list of waiting for ICU transfers and reported that there are no ICU beds available at this point. Would call back, and said she would request for a face sheet I informed the above information to speech therapy director Dr. Estrada ,ICU charge nurse and the patient's nurse. Will follow up with the transfer process 12/03/2020; Ascencio PCR test is positive today reports patient has been Covid positive for the last 20 days without any symptoms Management per guidelines, ID consult 12/03/20 20:18: I called patient's spouse Mr. Manoj Sol at [phone] and discussed in detail patient's condition, treatment plan, tests and reports, efforts to tr ansfer the patient to [facility], however could not be successfully till now due to unavailability of ICU beds at [place] at this point, he wanted to know the plan of extubation here in the hospital, I encouraged him to call back tomorrow to discuss with pulmonary critical physician Dr. Estrada. I answered all his questions, he also reports that patient Ms. Ebenezer Lynn has been Covid positive for the last 20 days. I encouraged him to call back if she has any new concerns regarding the patient's condition no other treatment. He was appreciative of my call 12/04/2020; Persistent fevers, persistent positive COVID-19 ID consulted, awaiting transfer to [place] Discussed extensively with patient's yesterday Patient is critically ill ,very poor prognosis 12/05: Patient's updated by [facility], awaiting transfer to [place]. 12/06:CASSIUS overnight. This evening patient was agitated and bite down on OETT and became hypoxic. Eventually losing her pulse and received ACLS. Dr. Tavo Meeks attempted to update of events but no answer. See code sheet/note for details I updated pt mother over the phone as she questioned about "organ failure" and need for trach. She stated pt and her are against a trach. 12/07: CASSIUS overngiht. updated on cardiac arrest yesterday. States that the patient and her would like to avoid a tracheostomy if possible however if emergent tracheostomy is needed then can be performed. Patient and are awaiting visit to [facility] for surgery for tracheal stenosis. Manoj Sol stated that mother in-law Nicole York may be contacted if Manoj is not able to be reached in case of emergency. Her number is [phone] Hospitalist Physical - Constitutional Vitals: Temp Pulse Resp BP Pulse Ox 99.1 F 99 H 17 120/67 98 12/07/20 16:00 12/07/20 18:30 12/07/20 18:30 12/07/20 18:30 12/07/20 18:30 General appearance: Present: no acute distress, well-nourished, obese (Orbitally obese), other (Intubated on vent) HEART Score - HEART Score Troponin: Troponin T < 0.010 ng/mL (0.00-0.029) 11/30/20 14:12 Results - Labs CBC & Chem 7: 12/07/20 04:00 12/07/20 05:00 Labs: Laboratory Last Values WBC 10.3 K/mm3 (4.5-11.0) 12/07/20 04:00 RBC 3.47 M/mm3 (3.65-5.03) L 12/07/20 04:00 Hgb 9.5 gm/dl (10.1-14.3) L 12/07/20 04:00 Hct 29.5 % (30.3-42.9) L 12/07/20 04:00 MCV 85 fl (79-97) 12/07/20 04:00 MCH 28 pg (28-32) 12/07/20 04:00 MCHC 32 % (30-34) 12/07/20 04:00 RDW 18.7 % (13.2-15.2) H 12/07/20 04:00 Plt Count 204 K/mm3 (140-440) 12/07/20 04:00 Lymph % (Auto) 13.1 % (13.4-35.0) L 12/05/20 11:04 [place] % (Auto) 6.7 % (0.0-7.3) 12/05/20 11:04 Eos % (Auto) 2.2 % (0.0-4.3) 12/05/20 11:04 Baso % (Auto) 0.4 % (0.0-1.8) 12/05/20 11:04 Lymph # (Auto) 1.7 K/mm3 (1.2-5.4) 12/05/20 11:04 [place] # (Auto) 0.9 K/mm3 (0.0-0.8) H 12/05/20 11:04 Eos # (Auto) 0.3 K/mm3 (0.0-0.4) 12/05/20 11:04 Baso # (Auto) 0.1 K/mm3 (0.0-0.1) 12/05/20 11:04 Add Manual Diff Complete 12/04/20 05:40 Total Counted 100 12/04/20 05:40 Seg Neutrophils % 77.6 % (40.0-70.0) H 12/05/20 11:04 Seg Neuts % (Manual) 74.0 % (40.0-70.0) H 12/04/20 05:40 Band Neutrophils % 16.0 % 12/04/20 05:40 Lymphocytes % (Manual) 2.0 % (13.4-35.0) L 12/04/20 05:40 Monocytes % (Manual) 5.0 % (0.0-7.3) 12/04/20 05:40 Eosinophils % (Manual) 2.0 % (0.0-4.3) 12/04/20 05:40 Basophils % (Manual) 1.0 % (0.0-1.8) 12/04/20 05:40 Nucleated RBC % Not Reportable 12/04/20 05:40 Seg Neutrophils # 10.0 K/mm3 (1.8-7.7) H 12/05/20 11:04 Seg Neutrophils # Man 16.1 K/mm3 (1.8-7.7) H 12/04/20 05:40 Band Neutrophils # 3.5 K/mm3 12/04/20 05:40 Lymphocytes # (Manual) 0.4 K/mm3 (1.2-5.4) L 12/04/20 05:40 Abs React Lymphs (Man) 0.0 K/mm3 12/04/20 05:40 Monocytes # (Manual) 1.1 K/mm3 (0.0-0.8) H 12/04/20 05:40 Eosinophils # (Manual) 0.4 K/mm3 (0.0-0.4) 12/04/20 05:40 Basophils # (Manual) 0.2 K/mm3 (0.0-0.1) H 12/04/20 05:40 Metamyelocytes # 0.0 K/mm3 12/04/20 05:40 Myelocytes # 0.0 K/mm3 12/04/20 05:40 Promyelocytes # 0.0 K/mm3 12/04/20 05:40 Blast Cells # 0.0 K/mm3 12/04/20 05:40 WBC Morphology Not Reportable 12/04/20 05:40 Hypersegmented Neuts Not Reportable 12/04/20 05:40 Hyposegmented Neuts Not Reportable 12/04/20 05:40 Hypogranular Neuts Not Reportable 12/04/20 05:40 Smudge Cells Not Reportable 12/04/20 05:40 Toxic Granulation Not Reportable 12/04/20 05:40 Toxic Vacuolation Not Reportable 12/04/20 05:40 Dohle Bodies Not Reportable 12/04/20 05:40 Pelger-Huet Anomaly Not Reportable 12/04/20 05:40 Solomon Rods Not Reportable 12/04/20 05:40 Platelet Estimate Not Reportable 12/04/20 05:40 Clumped Platelets 1+ 12/04/20 05:40 Plt Clumps, EDTA Not Reportable 12/04/20 05:40 Large Platelets Not Reportable 12/04/20 05:40 Giant Platelets Not Reportable 12/04/20 05:40 Platelet Satelliting Not Reportable 12/04/20 05:40 Plt Morphology Comment Not Reportable 12/04/20 05:40 RBC Morphology Normal 12/04/20 05:40 Dimorphic RBCs Not Reportable 12/04/20 05:40 Polychromasia Not Reportable 12/04/20 05:40 Hypochromasia Not Reportable 12/04/20 05:40 Poikilocytosis Not Reportable 12/04/20 05:40 Anisocytosis Not Reportable 12/04/20 05:40 Microcytosis Not Reportable 12/04/20 05:40 Macrocytosis Not Reportable 12/04/20 05:40 Spherocytes Not Reportable 12/04/20 05:40 Pappenheimer Bodies Not Reportable 12/04/20 05:40 Sickle Cells Not Reportable 12/04/20 05:40 Target Cells Not Reportable 12/04/20 05:40 Tear Drop Cells Not Reportable 12/04/20 05:40 Ovalocytes Not Reportable 12/04/20 05:40 Helmet Cells Not Reportable 12/04/20 05:40 Merino-Takilma Bodies Not Reportable 12/04/20 05:40 Hatch Rings Not Reportable 12/04/20 05:40 [place] Cells Not Reportable 12/04/20 05:40 Bite Cells Not Reportable 12/04/20 05:40 Crenated Cell Not Reportable 12/04/20 05:40 Elliptocytes Not Reportable 12/04/20 05:40 Acanthocytes (Spur) Not Reportable 12/04/20 05:40 Rouleaux Not Reportable 12/04/20 05:40 Hemoglobin C Crystals Not Reportable 12/04/20 05:40 Schistocytes Not Reportable 12/04/20 05:40 Malaria parasites Not Reportable 12/04/20 05:40 Charanjit Bodies Not Reportable 12/04/20 05:40 Hem Pathologist Commnt No 12/04/20 05:40 PT 13.9 Sec. (12.2-14.9) 12/07/20 04:00 INR 1.02 (0.87-1.13) 12/07/20 04:00 D-Dimer 1838.21 ng/mlDDU (0-234) H 12/04/20 10:41 ABG pH 7.374 (7.320-7.450) 12/07/20 04:00 POC ABG pCO2 55.9 mmHg (32.0-48.0) H 12/07/20 04:00 POC ABG pO2 96.5 mmHg (83-108) 12/07/20 04:00 POC ABG HCO3 31.9 12/07/20 04:00 ABG O2 Saturation 97.3 (0-100) 12/07/20 04:00 POC ABG Base Excess 5.4 12/07/20 04:00 ABG Hemoglobin 11.6 (12.0-17.5) L 12/07/20 04:00 ABG Oxyhemoglobin 96.2 (94-98) 12/07/20 04:00 ABG Methemoglobin 0.3 (0.0-1.5) 12/07/20 04:00 ABG Sodium 135.2 mmol/L (136.0-145.0) L 12/07/20 04:00 ABG Potassium 4.7 mmol/L (3.40-4.50) H 12/07/20 04:00 ABG Chloride 98.0 mmol/L (98-107) 12/07/20 04:00 ABG Glucose 141 mg/dL (65-95) H 12/07/20 04:00 Carboxyhemoglobin 0.8 (0.5-1.5) 12/07/20 04:00 FiO2 % 50.0 12/07/20 04:00 Sodium 137 mmol/L (137-145) 12/07/20 05:00 Potassium 4.6 mmol/L (3.6-5.0) 12/07/20 05:00 Chloride 96.6 mmol/L (98-107) L 12/07/20 05:00 Carbon Dioxide 35 mmol/L (22-30) H 12/07/20 05:00 Anion Gap 10 mmol/L 12/07/20 05:00 BUN 29 mg/dL (7-17) H 12/07/20 05:00 Creatinine 0.8 mg/dL (0.6-1.2) 12/07/20 05:00 Estimated GFR > 60 ml/min 12/07/20 05:00 BUN/Creatinine Ratio 36 % 12/07/20 05:00 Glucose 148 mg/dL (65-100) H 12/07/20 05:00 POC Glucose 121 mg/dL (70-105) H 12/07/20 16:54 Calcium 9.2 mg/dL (8.4-10.2) 12/07/20 05:00 Phosphorus 3.90 mg/dL (2.5-4.5) 12/07/20 04:00 Magnesium 1.90 mg/dL (1.7-2.3) 12/07/20 05:00 Ferritin 399.0 ng/mL (10.0-200.0) H 12/04/20 10:41 Total Bilirubin 0.30 mg/dL (0.1-1.2) 12/04/20 05:40 Direct Bilirubin < 0.2 mg/dL (0-0.2) 11/29/20 07:48 Indirect Bilirubin 0.0 mg/dL 11/29/20 07:48 AST 19 units/L (5-40) 12/04/20 05:40 ALT 28 units/L (7-56) 12/04/20 05:40 Alkaline Phosphatase 93 units/L (35-129) 12/04/20 05:40 Lactate Dehydrogenase 386 units/L (91-180) H 12/04/20 10:41 Total Creatine Kinase 1132 units/L (30-135) H 11/30/20 14:12 CK-MB (CK-2) 14.6 ng/mL (0.0-4.0) H 11/30/20 14:12 CK-MB (CK-2) Rel Index 1.2 (0-4) 11/30/20 14:12 Troponin T < 0.010 ng/mL (0.00-0.029) 11/30/20 14:12 C-Reactive Protein 34.30 mg/dL (0.00-1.30) H 12/04/20 10:41 Total Protein 6.2 g/dL (6.3-8.2) L 12/04/20 05:40 Albumin 2.6 g/dL (3.9-5) L 12/04/20 05:40 Albumin/Globulin Ratio 0.7 % 12/04/20 05:40 HCG, Qual Negative (Negative) 11/29/20 07:48 Arterial Blood Glucose 141 mg/dL (65-95) H 12/07/20 04:00 Arterial Blood Ionized Calcium 4.8 mg/dL (4.6-5.3) 12/07/20 04:00 Urine Color Lauren (Yellow) 12/04/20 07:30 Urine Turbidity Turbid (Clear) 12/04/20 07:30 Urine pH 5.0 (5.0-7.0) 12/04/20 07:30 Ur Specific [place] 1.011 (1.003-1.030) 12/04/20 07:30 Urine Protein 100 mg/dl mg/dL (Negative) 12/04/20 07:30 Urine Glucose (UA) Neg mg/dL (Negative) 12/04/20 07:30 Urine Ketones Neg mg/dL (Negative) 12/04/20 07:30 Urine Blood Lg (Negative) 12/04/20 07:30 Urine Nitrite Neg (Negative) 12/04/20 07:30 Urine Bilirubin Neg (Negative) 12/04/20 07:30 Urine Urobilinogen < 2.0 mg/dL (<2.0) 12/04/20 07:30 Ur Leukocyte Esterase Mod (Negative) 12/04/20 07:30 Urine WBC (Auto) > 182.0 /HPF (0.0-6.0) H 12/04/20 07:30 Urine RBC (Auto) 33.0 /HPF (0.0-6.0) 12/04/20 07:30 Urine WBC Clumps 3+ /HPF 12/04/20 07:30 WBC Casts 17 /LPF 12/04/20 07:30 Urine Mucus 3+ /HPF 12/04/20 07:30 Coronavirus (PCR) Positive (Negative) A 12/03/20 08:00 Microbiology: Microbiology 12/04/20 Unknown Urine,Catheterized - Indwelling Catheter Urine Culture - Preliminary Gram Negative Rasheed 12/04/20 00:54 Peripheral/Venous Blood Culture - Preliminary NO GROWTH AFTER 72 HOURS 12/04/20 00:54 Peripheral/Venous Blood Culture - Preliminary NO GROWTH AFTER 72 HOURS Dash/IV: Voiding Method Indwelling Catheter Active Medications - Current Medications Current Medications: Generic Name Dose Route Start Last Admin Trade Name Freq PRN Reason Stop Dose Admin Acetaminophen 650 mg 12/04/20 00:39 12/05/20 16:29 Acetaminophen 325 Mg Tab PO 650 mg Q6H PRN Administration Fever >101 Albuterol 2.5 mg 11/29/20 15:22 Albuterol 2.5 Mg/3 Ml Nebu IH Q4HRT PRN Shortness Of Breath Albuterol/Ipratropium 1 ampul 12/07/20 20:00 Ipratropium/Albuterol Sulfate 3 Ml Ampul.Neb IH Q12HRT KRYSTAL Lipase/Protease/Amylase 1 each 11/29/20 15:23 Lipase 10,500/Protease 25,000/Amylase 43,750 (Units) Dr Ariza FEEDTUBE PRN PRN For Clogged Feeding Tube Ascorbic Acid 500 mg 12/04/20 22:00 12/07/20 11:18 Ascorbic Acid 500 Mg Tab PO 500 mg BID KRYSTAL Administration Dextrose 50 ml 12/05/20 10:34 Dextrose 50% In Water (25gm) 50 Ml Syringe IV Q30MIN PRN Hypoglycemia Protocol Diphenhydramine HCl 25 mg 12/07/20 10:00 12/07/20 11:18 Diphenhydramine 50 Mg/Ml Vial IV 12/08/20 10:01 25 mg Q24HR KRYSTAL Administration Famotidine 20 mg 11/30/20 15:00 12/07/20 11:18 Famotidine 20 Mg/2 Ml Inj IV 20 mg BID KRYSTAL Administration Fentanyl 50 mcg 11/29/20 10:22 Fentanyl 100 Mcg/2 Ml Inj IV Q10MIN PRN ANALGESIA Fondaparinux 2.5 mg 11/29/20 22:00 12/06/20 21:23 Fondaparinux 2.5 Mg/0.5 Ml Inj SUB-Q 2.5 mg Q24H KRYSTAL Administration Gabapentin 600 mg 11/30/20 17:00 12/07/20 11:19 Gabapentin 500 Mg/10 Ml Oral Liqd PO 600 mg BID KRYSTAL Administration Hydrochlorothiazide 25 mg 12/06/20 14:00 12/07/20 11:18 Hydrochlorothiazide 25 Mg Tab PO 25 mg QDAY KRYSTAL Administration Hydrophilic Ointment 1 applic 12/01/20 08:54 Lip Therapy Vaseline TP Q2HR PRN Dry Lips Midazolam HCl 100 mg/ Sodium 100 mls @ 2 mls/hr 11/29/20 12:00 12/07/20 13:22 Chloride IV 2 mg/hr TITR KRYSTAL 2 mls/hr Administration Protocol 2 MG/HR Fentanyl Citrate 2,000 mcg in 100 mls @ 6.45 mls/hr 11/29/20 12:30 12/07/20 18:15 Fentanyl Drip Premix IV 3 mcg/kg/hr TITR KRYSTAL 19.35 mls/hr Administration Protocol 1 MCG/KG/HR Nicardipine HCl 50 mg/ Sodium 250 mls @ 25 mls/hr 12/03/20 08:00 12/04/20 03:26 Chloride IV 0 mg/hr TITR KRYSTAL 0 mls/hr Titration Protocol 5 MG/HR Cefepime HCl 2 gm in 100 mls @ 200 mls/hr 12/06/20 12:00 12/07/20 11:24 Cefepime/Ns 2 Gm/100 Ml IV 200 mls/hr Q8H KRYSTAL Administration Protocol Insulin Human Regular 0 units 12/05/20 12:00 12/07/20 18:37 Insulin Regular, Human 100 Units/1 Ml SUB-Q Not Given Q6HR [facility] Protocol Midazolam HCl 2 mg 11/29/20 10:22 12/06/20 16:07 Midazolam 2 Mg/2 Ml Inj IV 2 mg Q10MIN PRN Administration Sedation Montelukast Sodium 10 mg 11/29/20 22:00 12/06/20 21:23 Montelukast 10 Mg Tab PO 10 mg HS KRYSTAL Administration Multi-Ingred Cream/Lotion/Oil/Oint 1 applic 12/01/20 08:54 Mineral Oil/Petrolatum, White Ophth Oint 3.5 Gm OU Q4HR PRN Dry Eye(s) Senna/Docusate Sodium 1 tab 11/29/20 10:00 12/07/20 11:18 Sennosides/Docusate Sodium 8.6/50 Mg Tab FEEDTUBE 1 tab BID KRYSTAL Administration Simple Syrup 15 ml 11/29/20 15:23 Simple Syrup 15 Ml FEEDTUBE PRN PRN Hypoglycemia Simple Syrup 30 ml 11/29/20 15:23 Simple Syrup 15 Ml FEEDTUBE PRN PRN Hypoglycemia Sodium Bicarbonate 325 mg 11/29/20 15:23 Sodium Bicarbonate 325 Mg Tab FEEDTUBE PRN PRN For Clogged Feeding Tube Zinc Sulfate 220 mg 12/05/20 10:00 12/07/20 11:18 Zinc Sulfate 220 Mg Cap PO 220 mg QDAY KRYSTAL Administration Nutrition/Malnutrition Assess - Dietary Evaluation Nutrition/Malnutrition Findings: Nutrition Notes Start: 11/30/20 09:03 Freq: Status: Active Protocol: Document 12/07/20 10:14 VICTORIA (Rec: 12/07/20 10:17 VICTORIA [id number]) Nutrition Notes Initial or Follow up Reassessment Current Diagnosis Respiratory Failure Other Pertinent Diagnosis allergic reaction, alpha gal, hx HTN Current Diet Vital HP at 65 ml/hr Labs/Tests BUN 29 BG 148 Pertinent Medications Reviewed Height 5 ft 6 in Weight 132.4 kg [place] Body Weight (kg) 59.09 BMI 47.1 Weight Status Morbidly Obese Subjective/Other Information Pt suffered code blue yesterday. RN reports TF at goal and pt tolerating. Percent of energy/protein needs met: 84%/91% Burn Absent Trauma Absent Difficulty In Swallowing Current % PO Negligible Minimum of two criteria No Fluid Accumulation Mild (non-severe) #1 Nutrition Diagnosis Inadequate oral intake Diagnosis Progress(for reassessment Continues documentation) Is patient on ventilator? Yes Is Patient Ambulatory and/or Out of Bed No REE-([facility]-confined to bed) 2421.060 Kcal/Kg value to use for calculation 14 Approximate Energy Requirements Using 1854 kcal/Kg Calculation Used for Recommendations Kcal/kg Additional Notes Protein needs: 2.5 g/kg IBW , 148 g Fluid needs: 1ml/kcal Nutrition Intervention Change Diet Order: continue Nutrition Support: Vital High Protein at 65 ml/hr flush 45 ml q4h Kcal 1,560 Protein (gm) 135 Fluid (mL) 1,304 Goal #1 Meet at least 75% of protein and kcal needs via TF Anticipated Discharge Needs: Unable to determine at this time Follow-Up By: 12/13/20 Additional Comments F/u: TF tolerance <IZABELLA MEEKS - Last Filed: 12/08/20 07:28> History Interval history: I saw and evaluated the patient. Discussed with the nurse practitioner and agree with their findings and plan as documented in this note. Hospitalist Physical - Constitutional Vitals: Temp Pulse Resp BP Pulse Ox 98.8 F 102 H 20 126/72 98 12/08/20 04:00 12/08/20 06:00 12/08/20 06:00 12/08/20 06:00 12/08/20 06:00 HEART Score - HEART Score Troponin: Troponin T < 0.010 ng/mL (0.00-0.029) 11/30/20 14:12 Results - Labs CBC & Chem 7: 12/07/20 04:00 12/07/20 05:00 Labs: Laboratory Last Values WBC 10.3 K/mm3 (4.5-11.0) 12/07/20 04:00 RBC 3.47 M/mm3 (3.65-5.03) L 12/07/20 04:00 Hgb 9.5 gm/dl (10.1-14.3) L 12/07/20 04:00 Hct 29.5 % (30.3-42.9) L 12/07/20 04:00 MCV 85 fl (79-97) 12/07/20 04:00 MCH 28 pg (28-32) 12/07/20 04:00 MCHC 32 % (30-34) 12/07/20 04:00 RDW 18.7 % (13.2-15.2) H 12/07/20 04:00 Plt Count 204 K/mm3 (140-440) 12/07/20 04:00 Lymph % (Auto) 13.1 % (13.4-35.0) L 12/05/20 11:04 [place] % (Auto) 6.7 % (0.0-7.3) 12/05/20 11:04 Eos % (Auto) 2.2 % (0.0-4.3) 12/05/20 11:04 Baso % (Auto) 0.4 % (0.0-1.8) 12/05/20 11:04 Lymph # (Auto) 1.7 K/mm3 (1.2-5.4) 12/05/20 11:04 [place] # (Auto) 0.9 K/mm3 (0.0-0.8) H 12/05/20 11:04 Eos # (Auto) 0.3 K/mm3 (0.0-0.4) 12/05/20 11:04 Baso # (Auto) 0.1 K/mm3 (0.0-0.1) 12/05/20 11:04 Add Manual Diff Complete 12/04/20 05:40 Total Counted 100 12/04/20 05:40 Seg Neutrophils % 77.6 % (40.0-70.0) H 12/05/20 11:04 Seg Neuts % (Manual) 74.0 % (40.0-70.0) H 12/04/20 05:40 Band Neutrophils % 16.0 % 12/04/20 05:40 Lymphocytes % (Manual) 2.0 % (13.4-35.0) L 12/04/20 05:40 Monocytes % (Manual) 5.0 % (0.0-7.3) 12/04/20 05:40 Eosinophils % (Manual) 2.0 % (0.0-4.3) 12/04/20 05:40 Basophils % (Manual) 1.0 % (0.0-1.8) 12/04/20 05:40 Nucleated RBC % Not Reportable 12/04/20 05:40 Seg Neutrophils # 10.0 K/mm3 (1.8-7.7) H 12/05/20 11:04 Seg Neutrophils # Man 16.1 K/mm3 (1.8-7.7) H 12/04/20 05:40 Band Neutrophils # 3.5 K/mm3 12/04/20 05:40 Lymphocytes # (Manual) 0.4 K/mm3 (1.2-5.4) L 12/04/20 05:40 Abs React Lymphs (Man) 0.0 K/mm3 12/04/20 05:40 Monocytes # (Manual) 1.1 K/mm3 (0.0-0.8) H 12/04/20 05:40 Eosinophils # (Manual) 0.4 K/mm3 (0.0-0.4) 12/04/20 05:40 Basophils # (Manual) 0.2 K/mm3 (0.0-0.1) H 12/04/20 05:40 Metamyelocytes # 0.0 K/mm3 12/04/20 05:40 Myelocytes # 0.0 K/mm3 12/04/20 05:40 Promyelocytes # 0.0 K/mm3 12/04/20 05:40 Blast Cells # 0.0 K/mm3 12/04/20 05:40 WBC Morphology Not Reportable 12/04/20 05:40 Hypersegmented Neuts Not Reportable 12/04/20 05:40 Hyposegmented Neuts Not Reportable 12/04/20 05:40 Hypogranular Neuts Not Reportable 12/04/20 05:40 Smudge Cells Not Reportable 12/04/20 05:40 Toxic Granulation Not Reportable 12/04/20 05:40 Toxic Vacuolation Not Reportable 12/04/20 05:40 Dohle Bodies Not Reportable 12/04/20 05:40 Pelger-Huet Anomaly Not Reportable 12/04/20 05:40 Solomon Rods Not Reportable 12/04/20 05:40 Platelet Estimate Not Reportable 12/04/20 05:40 Clumped Platelets 1+ 12/04/20 05:40 Plt Clumps, EDTA Not Reportable 12/04/20 05:40 Large Platelets Not Reportable 12/04/20 05:40 Giant Platelets Not Reportable 12/04/20 05:40 Platelet Satelliting Not Reportable 12/04/20 05:40 Plt Morphology Comment Not Reportable 12/04/20 05:40 RBC Morphology Normal 12/04/20 05:40 Dimorphic RBCs Not Reportable 12/04/20 05:40 Polychromasia Not Reportable 12/04/20 05:40 Hypochromasia Not Reportable 12/04/20 05:40 Poikilocytosis Not Reportable 12/04/20 05:40 Anisocytosis Not Reportable 12/04/20 05:40 Microcytosis Not Reportable 12/04/20 05:40 Macrocytosis Not Reportable 12/04/20 05:40 Spherocytes Not Reportable 12/04/20 05:40 Pappenheimer Bodies Not Reportable 12/04/20 05:40 Sickle Cells Not Reportable 12/04/20 05:40 Target Cells Not Reportable 12/04/20 05:40 Tear Drop Cells Not Reportable 12/04/20 05:40 Ovalocytes Not Reportable 12/04/20 05:40 Helmet Cells Not Reportable 12/04/20 05:40 [place] Bodies Not Reportable 12/04/20 05:40 Hatch Rings Not Reportable 12/04/20 05:40 [place] Cells Not Reportable 12/04/20 05:40 Bite Cells Not Reportable 12/04/20 05:40 Crenated Cell Not Reportable 12/04/20 05:40 Elliptocytes Not Reportable 12/04/20 05:40 Acanthocytes (Spur) Not Reportable 12/04/20 05:40 Rouleaux Not Reportable 12/04/20 05:40 Hemoglobin C Crystals Not Reportable 12/04/20 05:40 Schistocytes Not Reportable 12/04/20 05:40 Malaria parasites Not Reportable 12/04/20 05:40 Charanjit Bodies Not Reportable 12/04/20 05:40 Hem Pathologist Commnt No 12/04/20 05:40 PT 13.9 Sec. (12.2-14.9) 12/07/20 04:00 INR 1.02 (0.87-1.13) 12/07/20 04:00 D-Dimer 1838.21 ng/mlDDU (0-234) H 12/04/20 10:41 ABG pH 7.437 (7.320-7.450) 12/08/20 04:00 POC ABG pCO2 53.4 mmHg (32.0-48.0) H 12/08/20 04:00 POC ABG pO2 94.5 mmHg (83-108) 12/08/20 04:00 POC ABG HCO3 35.2 12/08/20 04:00 ABG O2 Saturation 97.6 (0-100) 12/08/20 04:00 POC ABG Base Excess 9.5 12/08/20 04:00 ABG Hemoglobin 11.4 (12.0-17.5) L 12/08/20 04:00 ABG Oxyhemoglobin 96.7 (94-98) 12/08/20 04:00 ABG Methemoglobin 0.3 (0.0-1.5) 12/08/20 04:00 ABG Sodium 139.4 mmol/L (136.0-145.0) 12/08/20 04:00 ABG Potassium 3.9 mmol/L (3.40-4.50) 12/08/20 04:00 ABG Chloride 96.0 mmol/L (98-107) L 12/08/20 04:00 ABG Glucose 149 mg/dL (65-95) H 12/08/20 04:00 Carboxyhemoglobin 0.6 (0.5-1.5) 12/08/20 04:00 FiO2 % 50.0 12/08/20 04:00 Sodium 137 mmol/L (137-145) 12/07/20 05:00 Potassium 4.6 mmol/L (3.6-5.0) 12/07/20 05:00 Chloride 96.6 mmol/L (98-107) L 12/07/20 05:00 Carbon Dioxide 35 mmol/L (22-30) H 12/07/20 05:00 Anion Gap 10 mmol/L 12/07/20 05:00 BUN 29 mg/dL (7-17) H 12/07/20 05:00 Creatinine 0.8 mg/dL (0.6-1.2) 12/07/20 05:00 Estimated GFR > 60 ml/min 12/07/20 05:00 BUN/Creatinine Ratio 36 % 12/07/20 05:00 Glucose 148 mg/dL (65-100) H 12/07/20 05:00 POC Glucose 128 mg/dL (70-105) H 12/08/20 05:29 Calcium 9.2 mg/dL (8.4-10.2) 12/07/20 05:00 Phosphorus 3.90 mg/dL (2.5-4.5) 12/07/20 04:00 Magnesium 1.90 mg/dL (1.7-2.3) 12/07/20 05:00 Ferritin 399.0 ng/mL (10.0-200.0) H 12/04/20 10:41 Total Bilirubin 0.30 mg/dL (0.1-1.2) 12/04/20 05:40 Direct Bilirubin < 0.2 mg/dL (0-0.2) 11/29/20 07:48 Indirect Bilirubin 0.0 mg/dL 11/29/20 07:48 AST 19 units/L (5-40) 12/04/20 05:40 ALT 28 units/L (7-56) 12/04/20 05:40 Alkaline Phosphatase 93 units/L (35-129) 12/04/20 05:40 Lactate Dehydrogenase 386 units/L (91-180) H 12/04/20 10:41 Total Creatine Kinase 1132 units/L (30-135) H 11/30/20 14:12 CK-MB (CK-2) 14.6 ng/mL (0.0-4.0) H 11/30/20 14:12 CK-MB (CK-2) Rel Index 1.2 (0-4) 11/30/20 14:12 Troponin T < 0.010 ng/mL (0.00-0.029) 11/30/20 14:12 C-Reactive Protein 34.30 mg/dL (0.00-1.30) H 12/04/20 10:41 Total Protein 6.2 g/dL (6.3-8.2) L 12/04/20 05:40 Albumin 2.6 g/dL (3.9-5) L 12/04/20 05:40 Albumin/Globulin Ratio 0.7 % 12/04/20 05:40 HCG, Qual Negative (Negative) 11/29/20 07:48 Arterial Blood Glucose 149 mg/dL (65-95) H 12/08/20 04:00 Arterial Blood Ionized Calcium 4.9 mg/dL (4.6-5.3) 12/08/20 04:00 Urine Color Lauren (Yellow) 12/04/20 07:30 Urine Turbidity Turbid (Clear) 12/04/20 07:30 Urine pH 5.0 (5.0-7.0) 12/04/20 07:30 Ur Specific [place] 1.011 (1.003-1.030) 12/04/20 07:30 Urine Protein 100 mg/dl mg/dL (Negative) 12/04/20 07:30 Urine Glucose (UA) Neg mg/dL (Negative) 12/04/20 07:30 Urine Ketones Neg mg/dL (Negative) 12/04/20 07:30 Urine Blood Lg (Negative) 12/04/20 07:30 Urine Nitrite Neg (Negative) 12/04/20 07:30 Urine Bilirubin Neg (Negative) 12/04/20 07:30 Urine Urobilinogen < 2.0 mg/dL (<2.0) 12/04/20 07:30 Ur Leukocyte Esterase Mod (Negative) 12/04/20 07:30 Urine WBC (Auto) > 182.0 /HPF (0.0-6.0) H 12/04/20 07:30 Urine RBC (Auto) 33.0 /HPF (0.0-6.0) 12/04/20 07:30 Urine WBC Clumps 3+ /HPF 12/04/20 07:30 WBC Casts 17 /LPF 12/04/20 07:30 Urine Mucus 3+ /HPF 12/04/20 07:30 Coronavirus (PCR) Positive (Negative) A 12/03/20 08:00 Microbiology: Microbiology 12/04/20 00:54 Peripheral/Venous Blood Culture - Preliminary NO GROWTH AFTER 4 DAYS 12/04/20 00:54 Peripheral/Venous Blood Culture - Preliminary NO GROWTH AFTER 4 DAYS 12/04/20 Unknown Urine,Catheterized - Indwelling Catheter Urine Culture - Preliminary Gram Negative Rasheed Dash/IV: Voiding Method Indwelling Catheter Active Medications - Current Medications Current Medications: Generic Name Dose Route Start Last Admin Trade Name Freq PRN Reason Stop Dose Admin Acetaminophen 650 mg 12/04/20 00:39 12/05/20 16:29 Acetaminophen 325 Mg Tab PO 650 mg Q6H PRN Administration Fever >101 Albuterol 2.5 mg 11/29/20 15:22 Albuterol 2.5 Mg/3 Ml Nebu IH Q4HRT PRN Shortness Of Breath Albuterol/Ipratropium 1 ampul 12/07/20 20:00 12/07/20 19:47 Ipratropium/Albuterol Sulfate 3 Ml Ampul.Neb IH 1 ampul Q12HRT KRYSTAL Administration Lipase/Protease/Amylase 1 each 11/29/20 15:23 Lipase 10,500/Protease 25,000/Amylase 43,750 (Units) Dr Ariza FEEDTUBE PRN PRN For Clogged Feeding Tube Ascorbic Acid 500 mg 12/04/20 22:00 12/07/20 21:43 Ascorbic Acid 500 Mg Tab PO 500 mg BID KRYSTAL Administration Dextrose 50 ml 12/05/20 10:34 Dextrose 50% In Water (25gm) 50 Ml Syringe IV Q30MIN PRN Hypoglycemia Protocol Diphenhydramine HCl 25 mg 12/07/20 10:00 12/07/20 11:18 Diphenhydramine 50 Mg/Ml Vial IV 12/08/20 10:01 25 mg Q24HR KRYSTAL Administration Famotidine 20 mg 11/30/20 15:00 12/07/20 21:43 Famotidine 20 Mg/2 Ml Inj IV 20 mg BID KRYSTAL Administration Fentanyl 50 mcg 11/29/20 10:22 Fentanyl 100 Mcg/2 Ml Inj IV Q10MIN PRN ANALGESIA Fondaparinux 2.5 mg 11/29/20 22:00 12/07/20 21:44 Fondaparinux 2.5 Mg/0.5 Ml Inj SUB-Q 2.5 mg Q24H KRYSTAL Administration Gabapentin 600 mg 11/30/20 17:00 12/07/20 21:43 Gabapentin 500 Mg/10 Ml Oral Liqd PO 600 mg BID KRYSTAL Administration Hydrochlorothiazide 25 mg 12/06/20 14:00 12/07/20 11:18 Hydrochlorothiazide 25 Mg Tab PO 25 mg QDAY KRYSTAL Administration Hydrophilic Ointment 1 applic 12/01/20 08:54 Lip Therapy Vaseline TP Q2HR PRN Dry Lips Midazolam HCl 100 mg/ Sodium 100 mls @ 2 mls/hr 11/29/20 12:00 12/07/20 13:22 Chloride IV 2 mg/hr TITR KRYSTAL 2 mls/hr Administration Protocol 2 MG/HR Fentanyl Citrate 2,000 mcg in 100 mls @ 6.45 mls/hr 11/29/20 12:30 12/08/20 04:16 Fentanyl Drip Premix IV 3 mcg/kg/hr TITR KRYSTAL 19.35 mls/hr Administration Protocol 1 MCG/KG/HR Nicardipine HCl 50 mg/ Sodium 250 mls @ 25 mls/hr 12/03/20 08:00 12/04/20 03:26 Chloride IV 0 mg/hr TITR KRYSTAL 0 mls/hr Titration Protocol 5 MG/HR Cefepime HCl 2 gm in 100 mls @ 200 mls/hr 12/06/20 12:00 12/08/20 03:09 Cefepime/Ns 2 Gm/100 Ml IV 200 mls/hr Q8H KRYSTAL Administration Protocol Insulin Human Regular 0 units 12/05/20 12:00 12/08/20 05:36 Insulin Regular, Human 100 Units/1 Ml SUB-Q Not Given Q6HR [facility] Protocol Midazolam HCl 2 mg 11/29/20 10:22 12/06/20 16:07 Midazolam 2 Mg/2 Ml Inj IV 2 mg Q10MIN PRN Administration Sedation Montelukast Sodium 10 mg 11/29/20 22:00 12/07/20 21:43 Montelukast 10 Mg Tab PO 10 mg HS KRYSTAL Administration Multi-Ingred Cream/Lotion/Oil/Oint 1 applic 12/01/20 08:54 Mineral Oil/Petrolatum, White Ophth Oint 3.5 Gm OU Q4HR PRN Dry Eye(s) Senna/Docusate Sodium 1 tab 11/29/20 10:00 12/07/20 21:43 Sennosides/Docusate Sodium 8.6/50 Mg Tab FEEDTUBE 1 tab BID KRYSTAL Administration Simple Syrup 15 ml 11/29/20 15:23 Simple Syrup 15 Ml FEEDTUBE PRN PRN Hypoglycemia Simple Syrup 30 ml 11/29/20 15:23 Simple Syrup 15 Ml FEEDTUBE PRN PRN Hypoglycemia Sodium Bicarbonate 325 mg 11/29/20 15:23 Sodium Bicarbonate 325 Mg Tab FEEDTUBE PRN PRN For Clogged Feeding Tube Zinc Sulfate 220 mg 12/05/20 10:00 12/07/20 11:18 Zinc Sulfate 220 Mg Cap PO 220 mg QDAY KRYSTAL Administration Nutrition/Malnutrition Assess - Dietary Evaluation Nutrition/Malnutrition Findings: Nutrition Notes Start: 11/30/20 09:03 Freq: Status: Active Protocol: Document 12/07/20 10:14 VICTORIA (Rec: 12/07/20 10:17 VICTORIA [id number]) Nutrition Notes Initial or Follow up Reassessment Current Diagnosis Respiratory Failure Other Pertinent Diagnosis allergic reaction, alpha gal, hx HTN Current Diet Vital HP at 65 ml/hr Labs/Tests BUN 29 BG 148 Pertinent Medications Reviewed Height 5 ft 6 in Weight 132.4 kg [place] Body Weight (kg) 59.09 BMI 47.1 Weight Status Morbidly Obese Subjective/Other Information Pt suffered code blue yesterday. RN reports TF at goal and pt tolerating. Percent of energy/protein needs met: 84%/91% Burn Absent Trauma Absent Difficulty In Swallowing Current % PO Negligible Minimum of two criteria No Fluid Accumulation Mild (non-severe) #1 Nutrition Diagnosis Inadequate oral intake Diagnosis Progress(for reassessment Continues documentation) Is patient on ventilator? Yes Is Patient Ambulatory and/or Out of Bed No REE-([facility]-confined to bed) 2421.060 Kcal/Kg value to use for calculation 14 Approximate Energy Requirements Using 1854 kcal/Kg Calculation Used for Recommendations Kcal/kg Additional Notes Protein needs: 2.5 g/kg IBW , 148 g Fluid needs: 1ml/kcal Nutrition Intervention Change Diet Order: continue Nutrition Support: Vital High Protein at 65 ml/hr flush 45 ml q4h Kcal 1,560 Protein (gm) 135 Fluid (mL) 1,304 Goal #1 Meet at least 75% of protein and kcal needs via TF Anticipated Discharge Needs: Unable to determine at this time Follow-Up By: 12/13/20 Additional Comments F/u: TF tolerance
[2020-12-07] MEDS: MONTELUKAST 10 MG TAB PO SCH (21:43)
[2020-12-07] MEDS: FONDAPARINUX 2.5 MG/0.5 ML INJ SUB-Q SCH (21:44)
[2020-12-08] MEDS: INSULIN REGULAR, HUMAN 100 UNITS/1 ML SUB-Q SCH ×4 (00:40→18:44)
[2020-12-08] MEDS: CEFEPIME/NS 2 GM/100 ML 2 GM/100 ML BAG IV SCH ×3 (03:09→20:37)
[2020-12-08] MEDS: fentaNYL DRIP Premix 2,000 MCG/100 ML BAG IV SCH ×4 (04:16→20:33)
[2020-12-08] MEDS: IPRATROPIUM/ALBUTEROL SULFATE 3 ML AMPUL.NEB IH SCH ×2 (08:44→20:38)
[2020-12-08 08:59] LABS: Hematocrit 30.2 % (30.3-42.9); Hemoglobin 10.1 gm/dl (10.1-14.3); Mean Corpuscular HGB Conc 34 % (30-34); Mean Corpuscular Volume 83 fl (79-97); Platelet Count 204 K/mm3 (140-440); Red Blood Count 3.64 M/mm3 (3.65-5.03); Red Cell Distribution Width 18.1 % (13.2-15.2)
[2020-12-08 09:05] LABS: Blood Urea Nitrogen 31 mg/dL (7-17); Calcium 10.3 mg/dL (8.4-10.2); Hemolysis Index 14
[2020-12-08 09:09] LABS: BUN/Creatinine Ratio 44
[2020-12-08] MEDS: diphenhydrAMINE 50 MG/ML VIAL IV SCH (10:56)
[2020-12-08] MEDS: SENNOSIDES/DOCUSATE SODIUM 8.6/50 MG TAB FEEDTUBE SCH ×2 (10:57→22:00)
[2020-12-08] MEDS: ZINC SULFATE 220 MG CAP PO SCH (10:57)
[2020-12-08] MEDS: FAMOTIDINE 20 MG/2 ML INJ IV SCH ×2 (10:57→21:53)
[2020-12-08] MEDS: ASCORBIC ACID 500 MG TAB PO SCH ×2 (10:58→21:53)
[2020-12-08] MEDS: GABAPENTIN 500 MG/10 ML ORAL LIQD PO SCH ×2 (10:59→22:09)
[2020-12-08] MEDS: hydroCHLOROthiazide 25 MG TAB PO SCH (10:59)
[2020-12-08] MEDS: MIDAZOLAM 2 MG/2 ML INJ IV PRN ×3 (14:12→18:35)
--- NOTE | 2020-12-08 14:37 | Progress Note ---
Assessment and Plan Cultures: Blood culture no growth so far Urine culture: E. coli A/P: 40-year-old female past medical history of severe allergic reactions, morbid obesity, hypertension admitted with COVID-19 and respiratory failure #COVID-19: has been positive for >3 weeks. No therapy indicated at this time #Bilateral pneumonia: Possible secondary infection, recent development with new leukocytosis and fevers. Procalcitonin likely not helpful in the setting of NINI. #Acute sepsis: Present leukocytosis and fevers. Possibly secondary to pneumonia . #Acute hypoxic respiratory failure: On the vent #Severe allergic history Recs: -Continue cefepime, complete 7 days. -Monitor renal function -No acute Covid therapy indicated given duration since onset Thank you for the consult, we will sign off. Please call questions. Joanne Ruth MD [facility] ([facility]) O: [phone] F: [phone] Subjective Date of service: 12/08/20 Principal diagnosis: Acute Hypoxemic Respiratory Failure; Angioedema;Obesity; leukocytosis Interval history: Afebrile, white count 11.2. Arrange movement. Objective - Exam Narrative Exam: Physical exam deferred to reduce risk of transmission of COVID-19. Please refer to primary team's note. - Constitutional Vitals: Vital Signs Temp Pulse Resp BP Pulse Ox 99.0 F 115 H 17 167/92 99 12/08/20 12:00 12/08/20 14:00 12/08/20 13:00 12/08/20 13:30 12/08/20 13:00 Temperature -Last 24 Hours Temperature 99.0 F Temperature 99.8 F Temperature 98.8 F Temperature 98.4 F Temperature 98.8 F Temperature 99.1 F - Labs CBC & Chem 7: 12/08/20 08:33 12/08/20 08:33 Labs: Abnormal lab results 12/07/20 12/07/20 12/08/20 Range/Units 16:54 23:15 04:00 WBC (4.5-11.0) K/mm3 RBC (3.65-5.03) M/mm3 Hct (30.3-42.9) % RDW (13.2-15.2) % POC ABG pCO2 53.4 H (32.0-48.0) mmHg ABG Hemoglobin 11.4 L (12.0-17.5) ABG Chloride 96.0 L (98-107) mmol/L ABG Glucose 149 H (65-95) mg/dL Chloride (98-107) mmol/L Carbon Dioxide (22-30) mmol/L BUN (7-17) mg/dL Glucose (65-100) mg/dL POC Glucose 121 H 166 H (70-105) mg/dL Calcium (8.4-10.2) mg/dL Arterial Blood Glucose 149 H (65-95) mg/dL 12/08/20 12/08/20 12/08/20 Range/Units 05:29 08:33 08:33 WBC 11.2 H (4.5-11.0) K/mm3 RBC 3.64 L (3.65-5.03) M/mm3 Hct 30.2 L (30.3-42.9) % RDW 18.1 H (13.2-15.2) % POC ABG pCO2 (32.0-48.0) mmHg ABG Hemoglobin (12.0-17.5) ABG Chloride (98-107) mmol/L ABG Glucose (65-95) mg/dL Chloride 96.2 L (98-107) mmol/L Carbon Dioxide 33 H (22-30) mmol/L BUN 31 H (7-17) mg/dL Glucose 166 H (65-100) mg/dL POC Glucose 128 H (70-105) mg/dL Calcium 10.3 H (8.4-10.2) mg/dL Arterial Blood Glucose (65-95) mg/dL 12/08/20 Range/Units 11:53 WBC (4.5-11.0) K/mm3 RBC (3.65-5.03) M/mm3 Hct (30.3-42.9) % RDW (13.2-15.2) % POC ABG pCO2 (32.0-48.0) mmHg ABG Hemoglobin (12.0-17.5) ABG Chloride (98-107) mmol/L ABG Glucose (65-95) mg/dL Chloride (98-107) mmol/L Carbon Dioxide (22-30) mmol/L BUN (7-17) mg/dL Glucose (65-100) mg/dL POC Glucose 170 H (70-105) mg/dL Calcium (8.4-10.2) mg/dL Arterial Blood Glucose (65-95) mg/dL
[2020-12-08] MEDS: MIDAZOLAM 100 MG in SODIUM CHLORIDE 0.9% 80 ML IV SCH (14:50)
--- NOTE | 2020-12-08 15:14 | Vascular Lab Report ---
DUPLEX DOPPLER LOWER EXTREMITY VEINS, BILATERAL INDICATION / CLINICAL INFORMATION: r/o dvt. Covid positive TECHNIQUE: Duplex doppler imaging was performed through the veins of both lower extremities using hien ous compression and other maneuvers. COMPARISON: None available. FINDINGS: RIGHT COMMON FEMORAL VEIN: Negative. RIGHT FEMORAL VEIN: Negative. RIGHT POPLITEAL VEIN: Negative. RIGHT CALF VEINS: Negative. LEFT COMMON FEMORAL VEIN: Negative. LEFT FEMORAL VEIN: Negative. LEFT POPLITEAL VEIN: Negative. LEFT CALF VEINS: Negative. ADDITIONAL FINDINGS: None. IMPRESSION: 1. No sonographic evidence for DVT in either lower extremity. Scribed by: Lissa Denton RDMS, RVT Scribed: 12/08/2020 12:05 PM I have reviewed the images, agree with this report, and edited this report as needed. Signer Name: David Curtis MD Signed: 12/08/2020 3:10 PM Workstation Name: [id number]
--- NOTE | 2020-12-08 17:02 | Progress Note ---
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 Neuro: h/o migraines, peripheral neuropathy -Sedated with fentanyl, Versed, Precedex -Goal RASS 0 to -1 -Avoid delirium -SAT trials when appropriate -Xanax as needed -Scheduled gabapentin -Bilateral restraints for safety Cardio: ST,h/o HTN, s/p hypertensive urgency, s/p cardiac arrest -S/p Cardene drip -Blood pressure monitoring per protocol -Restarted home hydrochlorothiazide -S/p cardiac arrest on 12/06 Resp: Acute hypoxic respiratory failure, severe tracheal stenosis, bronchial asthma exacerbation -Patient was intubated in the emergency department for ventilation support due to severe angioedema -CCM consulted, appreciate recommendations -VAP bundle -Daily SBT trial when appropriate -Daily SPO2 monitoring -Daily CXR and ABG -A.m. vent settings assist control TV 450, rate 20, PEEP 10, 50% FiO2 -Intubated with 6 oett at 20 at the lips -See RT notes for weaning -Steroids GI: Morbid obesity -Nutrition consulted -Tube feedings at goal -Bowel regimen with Senokot -24-hour net -921 -PPI : Acute kidney injury 2/2 Vasomotor nephropathy -Presented with a BUN/creatinine of 0.8/10 which increased to 1.7/26 on 12/04 but no down trending -Significant output -Daily weights -Avoid nephrotoxic medications -Renally dose medications -Dash -Trend BMP ID: Acute sepsis, hereditary idiopathic angioedema and urticia, Alpha gal syndrome, COVID-19 infection, febrile illness, allergic reaction, gram-negative martín in urine culture -Infectious disease consulted, appreciate recommendations -h/o multiple intubations and tracheostomy in the past, patient has multiple allergies -Steroids, Benadryl -Outpatient technician test systems/ENT follow-up upon discharge -Per the patient has been positive for COVID-19 for approximately 20 days -ABX per ID: Escalated to cefepime from azithromycin and ceftriaxone -Droplet/agitation precautions -Per ID avoid vancomycin due to NINI however start if blood cultures turn positive -Follow WBC and culture data -Follow fever curve -Per ID no acute therapy indicated given duration since onset Endo: h/o DM type II, hyperglycemia -SSI -Avoid hypoglycemia -BG every 6 Heme: Leukocytosis -Trend CBC -Patient's antibiotic therapy -Patient is also on steroids -Bilateral lower extremity Doppler ultrasound completed-> no DVT The high probability of a clinically significant, sudden or life threatening deterioration of the [multi] system(s) required my full and direct attention, intervention and personal management. The aggregate critical care time was [90] minutes. This time is in addition to time spent performing reported procedures but includes the following: [x] Data Review and interpretation [x] Patient assessment and monitoring of vital signs [x] Documentation [x] Medication orders and management Disposition Plan: ICU Total Time Spent with Patient (Minutes): 60 History Interval history: This is a 39-year-old female with HTN, migraines, asthma, peripheral neuropathy, morbid obesity severe tracheal stenosis, idiopathic heredity angioedema and uticaria, alphagal syndrome s/p trach and multiple intubations who presented to emergency department on 11/29 for allergic reaction. Patient was intubated in the emergency department. Per family IV Benadryl, ketamine and Decadron work for spasms and stridor. Patient reportedly used EpiPen prior to arrival to [facility] department. Patient is a being admitted to the hospital service with consult to [facility] for acute respiratory failure with hypoxemia secondary to hereditary angioedema and allergic reaction, hypertensive urgency. 11/30: Patient is on vent but awake and communicative. She is anxious. Patient does not know what triggered current recurrence of angioedema. FiO2 35%. Hemodynamically stable. Discussed with nursing staff and the patient, she communicates with writing. 12/01: Patient remains on vent and sedated. Current FiO2 30%. No acute events from overnight reported. Angioedema of face seems to improving. Hemodynamically stable. Pulmonary managing ventilator. Will be extubated when angioedema improved significantly. Discussed with the nursing staff. 12/02/20; Dr. Estrada recommended to initiate transfer to [facility] under the care of patient's ENT surgeon Dr. Carias I called [facility] transfer center at [phone] and requested a transfer, discussed in detail with the transfer center nurse Ms. River She she took all the patient's information and added the name of the patient to the list of waiting for ICU transfers and reported that there are no ICU beds available at this point. Would call back, and said she would request for a facesheet I informed the above information to physiological chemist Dr. Estrada ,ICU charge nurse and the patient's nurse. Will follow up with the transfer process 12/03/2020; Ascencio PCR test is positive today reports patient has been Covid positive for the last 20 days without any symptoms Management per guidelines, ID consult 12/03/20 20:18: I called patient's spouse Mr. Manoj Sol at [phone] and discussed in detail patient's condition, treatment plan, tests and reports, efforts to transfer the patient to [facility], however could not be successfully till now due to unavailability of ICU beds at [facility] at this point, he wanted to know the plan of extubation here in the hospital, I encouraged him to call back tomorrow to discuss with pulmonary critical physician Dr. Estrada. I answered all his questions, he also reports that patient Ms. Ebenezer Lynn has been Covid positive for the last 20 days. I encouraged him to call back if she has any new concerns regarding the patient's condition no other treatment. He was appreciative of my call 12/04/2020; Persistent fevers, persistent positive COVID-19 ID consulted, awaiting transfer to [facility] Discussed extensively with patient's yesterday Patient is critically ill ,very poor prognosis 12/05: Patient's updated by [facility], awaiting transfer to [facility]. 12/06:CASSIUS overnight. This evening patient was agitated and bite down on OETT and became hypoxic. Eventually losing her pulse and received ACLS. Dr. Tavo Meeks attempted to update of events but no answer. See code sheet/note for details I updated pt mother over the phone as she questioned about "organ failure" and need for trach. She stated pt and her are against a trach. 12/07: CASSIUS overnight. updated on cardiac arrest yesterday. States that the patient and her would like to avoid a tracheostomy if possible however if emergent tracheostomy is needed then can be performed. Patient and are awaiting visit to [facility] for surgery for tracheal stenosis. Manoj Sol stated that mother in-law Nicole York may be contacted if Manoj is not able to be reached in case of emergency. Her number is [phone] 12/08: Patient with consistent agitation and Precedex drip started. Hospitalist Physical - Constitutional Vitals: Temp Pulse Resp BP Pulse Ox 98.9 F 100 H 17 128/65 97 12/08/20 16:00 12/08/20 15:32 12/08/20 13:00 12/08/20 15:32 12/08/20 15:32 General appearance: Present: no acute distress, well-nourished, obese (Orbitally obese), other (Intubated on vent) - EENT Eyes: Present: PERRL ENT: clear oral mucosa, dentition normal - Neck Neck: Present: normal ROM - Respiratory Respiratory effort: normal Respiratory: bilateral: diminished - Cardiovascular Rhythm: regular Heart Sounds: Present: S1 & S2. Absent: systolic murmur, diastolic murmur - Extremities Extremities: no ischemia, pulses intact, pulses symmetrical, normal temperature, normal color Peripheral Pulses: within normal limits - Abdominal General gastrointestinal: soft, non-tender, non-distended, normal bowel sounds - Integumentary Integumentary: Present: warm, dry - Psychiatric Psychiatric: agitated, other (Sedated) - Neurologic Neurologic: other (Sedated) - Allied Health Allied health notes reviewed: nursing, RT, social work HEART Score - HEART Score Troponin: Troponin T < 0.010 ng/mL (0.00-0.029) 11/30/20 14:12 Results - Labs CBC & Chem 7: 12/08/20 08:33 12/08/20 08:33 Labs: Laboratory Last Values WBC 11.2 K/mm3 (4.5-11.0) H 12/08/20 08:33 RBC 3.64 M/mm3 (3.65-5.03) L 12/08/20 08:33 Hgb 10.1 gm/dl (10.1-14.3) 12/08/20 08:33 Hct 30.2 % (30.3-42.9) L 12/08/20 08:33 MCV 83 fl (79-97) 12/08/20 08:33 MCH 28 pg (28-32) 12/08/20 08:33 MCHC 34 % (30-34) 12/08/20 08:33 RDW 18.1 % (13.2-15.2) H 12/08/20 08:33 Plt Count 204 K/mm3 (140-440) 12/08/20 08:33 Lymph % (Auto) 13.1 % (13.4-35.0) L 12/05/20 11:04 [place] % (Auto) 6.7 % (0.0-7.3) 12/05/20 11:04 Eos % (Auto) 2.2 % (0.0-4.3) 12/05/20 11:04 Baso % (Auto) 0.4 % (0.0-1.8) 12/05/20 11:04 Lymph # (Auto) 1.7 K/mm3 (1.2-5.4) 12/05/20 11:04 [place] # (Auto) 0.9 K/mm3 (0.0-0.8) H 12/05/20 11:04 Eos # (Auto) 0.3 K/mm3 (0.0-0.4) 12/05/20 11:04 Baso # (Auto) 0.1 K/mm3 (0.0-0.1) 12/05/20 11:04 Add Manual Diff Complete 12/04/20 05:40 Total Counted 100 12/04/20 05:40 Seg Neutrophils % 77.6 % (40.0-70.0) H 12/05/20 11:04 Seg Neuts % (Manual) 74.0 % (40.0-70.0) H 12/04/20 05:40 Band Neutrophils % 16.0 % 12/04/20 05:40 Lymphocytes % (Manual) 2.0 % (13.4-35.0) L 12/04/20 05:40 Monocytes % (Manual) 5.0 % (0.0-7.3) 12/04/20 05:40 Eosinophils % (Manual) 2.0 % (0.0-4.3) 12/04/20 05:40 Basophils % (Manual) 1.0 % (0.0-1.8) 12/04/20 05:40 Nucleated RBC % Not Reportable 12/04/20 05:40 Seg Neutrophils # 10.0 K/mm3 (1.8-7.7) H 12/05/20 11:04 Seg Neutrophils # Man 16.1 K/mm3 (1.8-7.7) H 12/04/20 05:40 Band Neutrophils # 3.5 K/mm3 12/04/20 05:40 Lymphocytes # (Manual) 0.4 K/mm3 (1.2-5.4) L 12/04/20 05:40 Abs React Lymphs (Man) 0.0 K/mm3 12/04/20 05:40 Monocytes # (Manual) 1.1 K/mm3 (0.0-0.8) H 12/04/20 05:40 Eosinophils # (Manual) 0.4 K/mm3 (0.0-0.4) 12/04/20 05:40 Basophils # (Manual) 0.2 K/mm3 (0.0-0.1) H 12/04/20 05:40 Metamyelocytes # 0.0 K/mm3 12/04/20 05:40 Myelocytes # 0.0 K/mm3 12/04/20 05:40 Promyelocytes # 0.0 K/mm3 12/04/20 05:40 Blast Cells # 0.0 K/mm3 12/04/20 05:40 WBC Morphology Not Reportable 12/04/20 05:40 Hypersegmented Neuts Not Reportable 12/04/20 05:40 Hyposegmented Neuts Not Reportable 12/04/20 05:40 Hypogranular Neuts Not Reportable 12/04/20 05:40 Smudge Cells Not Reportable 12/04/20 05:40 Toxic Granulation Not Reportable 12/04/20 05:40 Toxic Vacuolation Not Reportable 12/04/20 05:40 Dohle Bodies Not Reportable 12/04/20 05:40 Pelger-Huet Anomaly Not Reportable 12/04/20 05:40 Solomon Rods Not Reportable 12/04/20 05:40 Platelet Estimate Not Reportable 12/04/20 05:40 Clumped Platelets 1+ 12/04/20 05:40 Plt Clumps, EDTA Not Reportable 12/04/20 05:40 Large Platelets Not Reportable 12/04/20 05:40 Giant Platelets Not Reportable 12/04/20 05:40 Platelet Satelliting Not Reportable 12/04/20 05:40 Plt Morphology Comment Not Reportable 12/04/20 05:40 RBC Morphology Normal 12/04/20 05:40 Dimorphic RBCs Not Reportable 12/04/20 05:40 Polychromasia Not Reportable 12/04/20 05:40 Hypochromasia Not Reportable 12/04/20 05:40 Poikilocytosis Not Reportable 12/04/20 05:40 Anisocytosis Not Reportable 12/04/20 05:40 Microcytosis Not Reportable 12/04/20 05:40 Macrocytosis Not Reportable 12/04/20 05:40 Spherocytes Not Reportable 12/04/20 05:40 Pappenheimer Bodies Not Reportable 12/04/20 05:40 Sickle Cells Not Reportable 12/04/20 05:40 Target Cells Not Reportable 12/04/20 05:40 Tear Drop Cells Not Reportable 12/04/20 05:40 Ovalocytes Not Reportable 12/04/20 05:40 Helmet Cells Not Reportable 12/04/20 05:40 [place] Bodies Not Reportable 12/04/20 05:40 [place] Rings Not Reportable 12/04/20 05:40 [place] Cells Not Reportable 12/04/20 05:40 Bite Cells Not Reportable 12/04/20 05:40 Crenated Cell Not Reportable 12/04/20 05:40 Elliptocytes Not Reportable 12/04/20 05:40 Acanthocytes (Spur) Not Reportable 12/04/20 05:40 Rouleaux Not Reportable 12/04/20 05:40 Hemoglobin C Crystals Not Reportable 12/04/20 05:40 Schistocytes Not Reportable 12/04/20 05:40 Malaria parasites Not Reportable 12/04/20 05:40 Charanjit Bodies Not Reportable 12/04/20 05:40 Hem Pathologist Commnt No 12/04/20 05:40 PT 13.9 Sec. (12.2-14.9) 12/07/20 04:00 INR 1.02 (0.87-1.13) 12/07/20 04:00 D-Dimer 1838.21 ng/mlDDU (0-234) H 12/04/20 10:41 ABG pH 7.437 (7.320-7.450) 12/08/20 04:00 POC ABG pCO2 53.4 mmHg (32.0-48.0) H 12/08/20 04:00 POC ABG pO2 94.5 mmHg (83-108) 12/08/20 04:00 POC ABG HCO3 35.2 12/08/20 04:00 ABG O2 Saturation 97.6 (0-100) 12/08/20 04:00 POC ABG Base Excess 9.5 12/08/20 04:00 ABG Hemoglobin 11.4 (12.0-17.5) L 12/08/20 04:00 ABG Oxyhemoglobin 96.7 (94-98) 12/08/20 04:00 ABG Methemoglobin 0.3 (0.0-1.5) 12/08/20 04:00 ABG Sodium 139.4 mmol/L (136.0-145.0) 12/08/20 04:00 ABG Potassium 3.9 mmol/L (3.40-4.50) 12/08/20 04:00 ABG Chloride 96.0 mmol/L (98-107) L 12/08/20 04:00 ABG Glucose 149 mg/dL (65-95) H 12/08/20 04:00 Carboxyhemoglobin 0.6 (0.5-1.5) 12/08/20 04:00 FiO2 % 50.0 12/08/20 04:00 Sodium 139 mmol/L (137-145) 12/08/20 08:33 Potassium 4.2 mmol/L (3.6-5.0) 12/08/20 08:33 Chloride 96.2 mmol/L (98-107) L 12/08/20 08:33 Carbon Dioxide 33 mmol/L (22-30) H 12/08/20 08:33 Anion Gap 14 mmol/L 12/08/20 08:33 BUN 31 mg/dL (7-17) H 12/08/20 08:33 Creatinine 0.7 mg/dL (0.6-1.2) 12/08/20 08:33 Estimated GFR > 60 ml/min 12/08/20 08:33 BUN/Creatinine Ratio 44 % 12/08/20 08:33 Glucose 166 mg/dL (65-100) H 12/08/20 08:33 POC Glucose 157 mg/dL (70-105) H 12/08/20 16:46 Calcium 10.3 mg/dL (8.4-10.2) H 12/08/20 08:33 Phosphorus 3.90 mg/dL (2.5-4.5) 12/07/20 04:00 Magnesium 1.90 mg/dL (1.7-2.3) 12/07/20 05:00 Ferritin 399.0 ng/mL (10.0-200.0) H 12/04/20 10:41 Total Bilirubin 0.30 mg/dL (0.1-1.2) 12/04/20 05:40 Direct Bilirubin < 0.2 mg/dL (0-0.2) 11/29/20 07:48 Indirect Bilirubin 0.0 mg/dL 11/29/20 07:48 AST 19 units/L (5-40) 12/04/20 05:40 ALT 28 units/L (7-56) 12/04/20 05:40 Alkaline Phosphatase 93 units/L (35-129) 12/04/20 05:40 Lactate Dehydrogenase 386 units/L (91-180) H 12/04/20 10:41 Total Creatine Kinase 1132 units/L (30-135) H 11/30/20 14:12 CK-MB (CK-2) 14.6 ng/mL (0.0-4.0) H 11/30/20 14:12 CK-MB (CK-2) Rel Index 1.2 (0-4) 11/30/20 14:12 Troponin T < 0.010 ng/mL (0.00-0.029) 11/30/20 14:12 C-Reactive Protein 34.30 mg/dL (0.00-1.30) H 12/04/20 10:41 Total Protein 6.2 g/dL (6.3-8.2) L 12/04/20 05:40 Albumin 2.6 g/dL (3.9-5) L 12/04/20 05:40 Albumin/Globulin Ratio 0.7 % 12/04/20 05:40 HCG, Qual Negative (Negative) 11/29/20 07:48 Arterial Blood Glucose 149 mg/dL (65-95) H 12/08/20 04:00 Arterial Blood Ionized Calcium 4.9 mg/dL (4.6-5.3) 12/08/20 04:00 Urine Color Lauren (Yellow) 12/04/20 07:30 Urine Turbidity Turbid (Clear) 12/04/20 07:30 Urine pH 5.0 (5.0-7.0) 12/04/20 07:30 Ur Specific [place] 1.011 (1.003-1.030) 12/04/20 07:30 Urine Protein 100 mg/dl mg/dL (Negative) 12/04/20 07:30 Urine Glucose (UA) Neg mg/dL (Negative) 12/04/20 07:30 Urine Ketones Neg mg/dL (Negative) 12/04/20 07:30 Urine Blood Lg (Negative) 12/04/20 07:30 Urine Nitrite Neg (Negative) 12/04/20 07:30 Urine Bilirubin Neg (Negative) 12/04/20 07:30 Urine Urobilinogen < 2.0 mg/dL (<2.0) 12/04/20 07:30 Ur Leukocyte Esterase Mod (Negative) 12/04/20 07:30 Urine WBC (Auto) > 182.0 /HPF (0.0-6.0) H 12/04/20 07:30 Urine RBC (Auto) 33.0 /HPF (0.0-6.0) 12/04/20 07:30 Urine WBC Clumps 3+ /HPF 12/04/20 07:30 WBC Casts 17 /LPF 12/04/20 07:30 Urine Mucus 3+ /HPF 12/04/20 07:30 Coronavirus (PCR) Positive (Negative) A 12/03/20 08:00 Microbiology: Microbiology 12/04/20 Unknown Urine,Catheterized - Indwelling Catheter Urine Culture - Final Escherichia Coli 12/04/20 00:54 Peripheral/Venous Blood Culture - Preliminary NO GROWTH AFTER 4 DAYS 12/04/20 00:54 Peripheral/Venous Blood Culture - Preliminary NO GROWTH AFTER 4 DAYS Dash/IV: Voiding Method Indwelling Catheter Active Medications - Current Medications Current Medications: Generic Name Dose Route Start Last Admin Trade Name Freq PRN Reason Stop Dose Admin Acetaminophen 650 mg 12/04/20 00:39 12/05/20 16:29 Acetaminophen 325 Mg Tab PO 650 mg Q6H PRN Administration Fever >101 Albuterol 2.5 mg 11/29/20 15:22 Albuterol 2.5 Mg/3 Ml Nebu IH Q4HRT PRN Shortness Of Breath Albuterol/Ipratropium 1 ampul 12/07/20 20:00 12/08/20 08:44 Ipratropium/Albuterol Sulfate 3 Ml Ampul.Neb IH 1 ampul Q12HRT KRYSTAL Administration Lipase/Protease/Amylase 1 each 11/29/20 15:23 Lipase 10,500/Protease 25,000/Amylase 43,750 (Units) Dr Cap FEEDTUBE PRN PRN For Clogged Feeding Tube Ascorbic Acid 500 mg 12/04/20 22:00 12/08/20 10:58 Ascorbic Acid 500 Mg Tab PO 500 mg BID KRYSTAL Administration Dextrose 50 ml 12/05/20 10:34 Dextrose 50% In Water (25gm) 50 Ml Syringe IV Q30MIN PRN Hypoglycemia Protocol Famotidine 20 mg 11/30/20 15:00 12/08/20 10:57 Famotidine 20 Mg/2 Ml Inj IV 20 mg BID KRYSTAL Administration Fentanyl 50 mcg 11/29/20 10:22 Fentanyl 100 Mcg/2 Ml Inj IV Q10MIN PRN ANALGESIA Fondaparinux 2.5 mg 11/29/20 22:00 12/07/20 21:44 Fondaparinux 2.5 Mg/0.5 Ml Inj SUB-Q 2.5 mg Q24H KRYSTAL Administration Gabapentin 600 mg 11/30/20 17:00 12/08/20 10:59 Gabapentin 500 Mg/10 Ml Oral Liqd PO 600 mg BID KRYSTAL Administration Hydrochlorothiazide 25 mg 12/06/20 14:00 12/08/20 10:59 Hydrochlorothiazide 25 Mg Tab PO 25 mg QDAY KRYSTAL Administration Hydrophilic Ointment 1 applic 12/01/20 08:54 Lip Therapy Vaseline TP Q2HR PRN Dry Lips Midazolam HCl 100 mg/ Sodium 100 mls @ 2 mls/hr 11/29/20 12:00 12/08/20 14:50 Chloride IV 5 mg/hr TITR KRYSTAL 5 mls/hr Administration Protocol 2 MG/HR Fentanyl Citrate 2,000 mcg in 100 mls @ 6.45 mls/hr 11/29/20 12:30 12/08/20 14:55 Fentanyl Drip Premix IV 4 mcg/kg/hr TITR KRYSTAL 25.8 mls/hr Administration Protocol 1 MCG/KG/HR Nicardipine HCl 50 mg/ Sodium 250 mls @ 25 mls/hr 12/03/20 08:00 12/04/20 03:26 Chloride IV 0 mg/hr TITR KRYSTAL 0 mls/hr Titration Protocol 5 MG/HR Cefepime HCl 2 gm in 100 mls @ 200 mls/hr 12/06/20 12:00 12/08/20 14:12 Cefepime/Ns 2 Gm/100 Ml IV 200 mls/hr Q8H KRYTSAL Administration Protocol Dexmedetomidine HCl 400 mcg/ 104 mls @ 6.885 mls/hr 12/08/20 16:00 Sodium Chloride IV TITRATE KRYSTAL Protocol 0.2 MCG/KG/HR Insulin Human Regular 0 units 12/05/20 12:00 12/08/20 14:12 Insulin Regular, Human 100 Units/1 Ml SUB-Q 1 units Q6HR KRYSTAL Administration Protocol Midazolam HCl 2 mg 11/29/20 10:22 12/08/20 14:57 Midazolam 2 Mg/2 Ml Inj IV 2 mg Q10MIN PRN Administration Sedation Montelukast Sodium 10 mg 11/29/20 22:00 12/07/20 21:43 Montelukast 10 Mg Tab PO 10 mg HS KRYSTAL Administration Multi-Ingred Cream/Lotion/Oil/Oint 1 applic 12/01/20 08:54 Mineral Oil/Petrolatum, White Ophth Oint 3.5 Gm OU Q4HR PRN Dry Eye(s) Senna/Docusate Sodium 1 tab 11/29/20 10:00 12/08/20 10:57 Sennosides/Docusate Sodium 8.6/50 Mg Tab FEEDTUBE 1 tab BID KRYSTAL Administration Simple Syrup 15 ml 11/29/20 15:23 Simple Syrup 15 Ml FEEDTUBE PRN PRN Hypoglycemia Simple Syrup 30 ml 11/29/20 15:23 Simple Syrup 15 Ml FEEDTUBE PRN PRN Hypoglycemia Sodium Bicarbonate 325 mg 11/29/20 15:23 Sodium Bicarbonate 325 Mg Tab FEEDTUBE PRN PRN For Clogged Feeding Tube Zinc Sulfate 220 mg 12/05/20 10:00 12/08/20 10:57 Zinc Sulfate 220 Mg Cap PO 220 mg QDAY KRYSTAL Administration Nutrition/Malnutrition Assess - Dietary Evaluation Nutrition/Malnutrition Findings: Nutrition Notes Start: 11/30/20 09:03 Freq: Status: Active Protocol: Document 12/07/20 10:14 (Rec: 12/07/20 10:17 [id number]) Nutrition Notes Initial or Follow up Reassessment Current Diagnosis Respiratory Failure Other Pertinent Diagnosis allergic reaction, alpha gal, hx HTN Current Diet Vital HP at 65 ml/hr Labs/Tests BUN 29 BG 148 Pertinent Medications Reviewed Height 5 ft 6 in Weight 132.4 kg [place] Body Weight (kg) 59.09 BMI 47.1 Weight Status Morbidly Obese Subjective/Other Information Pt suffered code blue yesterday. RN reports TF at goal and pt tolerating. Percent of energy/protein needs met: 84%/91% Burn Absent Trauma Absent Difficulty In Swallowing Current % PO Negligible Minimum of two criteria No Fluid Accumulation Mild (non-severe) #1 Nutrition Diagnosis Inadequate oral intake Diagnosis Progress(for reassessment Continues documentation) Is patient on ventilator? Yes Is Patient Ambulatory and/or Out of Bed No REE-([place]-confined to bed) 2421.060 Kcal/Kg value to use for calculation 14 Approximate Energy Requirements Using 1854 kcal/Kg Calculation Used for Recommendations Kcal/kg Additional Notes Protein needs: 2.5 g/kg IBW , 148 g Fluid needs: 1ml/kcal Nutrition Intervention Change Diet Order: continue Nutrition Support: Vital High Protein at 65 ml/hr flush 45 ml q4h Kcal 1,560 Protein (gm) 135 Fluid (mL) 1,304 Goal #1 Meet at least 75% of protein and kcal needs via TF Anticipated Discharge Needs: Unable to determine at this time Follow-Up By: 12/13/20 Additional Comments F/u: TF tolerance <IZABELLA MEEKS - Last Filed: 12/09/20 16:50> History Interval history: I saw and evaluated the patient. Discussed with the nurse practitioner and agree with their findings and plan as documented in this note. Hospitalist Physical - Constitutional Vitals: Temp Pulse Resp BP Pulse Ox 100.7 F H 72 20 112/53 94 12/09/20 12:00 12/09/20 16:30 12/09/20 16:30 12/09/20 16:30 12/09/20 16:30 HEART Score - HEART Score Troponin: Troponin T < 0.010 ng/mL (0.00-0.029) 11/30/20 14:12 Results - Labs CBC & Chem 7: 12/09/20 05:07 12/09/20 05:07 Labs: Laboratory Last Values WBC 11.4 K/mm3 (4.5-11.0) H 12/09/20 05:07 RBC 3.53 M/mm3 (3.65-5.03) L 12/09/20 05:07 Hgb 9.8 gm/dl (10.1-14.3) L 12/09/20 05:07 Hct 29.2 % (30.3-42.9) L 12/09/20 05:07 MCV 83 fl (79-97) 12/09/20 05:07 MCH 28 pg (28-32) 12/09/20 05:07 MCHC 34 % (30-34) 12/09/20 05:07 RDW 17.8 % (13.2-15.2) H 12/09/20 05:07 Plt Count 216 K/mm3 (140-440) 12/09/20 05:07 Lymph % (Auto) 13.1 % (13.4-35.0) L 12/05/20 11:04 [place] % (Auto) 6.7 % (0.0-7.3) 12/05/20 11:04 Eos % (Auto) 2.2 % (0.0-4.3) 12/05/20 11:04 Baso % (Auto) 0.4 % (0.0-1.8) 12/05/20 11:04 Lymph # (Auto) 1.7 K/mm3 (1.2-5.4) 12/05/20 11:04 [place] # (Auto) 0.9 K/mm3 (0.0-0.8) H 12/05/20 11:04 Eos # (Auto) 0.3 K/mm3 (0.0-0.4) 12/05/20 11:04 Baso # (Auto) 0.1 K/mm3 (0.0-0.1) 12/05/20 11:04 Add Manual Diff Complete 12/04/20 05:40 Total Counted 100 12/04/20 05:40 Seg Neutrophils % 77.6 % (40.0-70.0) H 12/05/20 11:04 Seg Neuts % (Manual) 74.0 % (40.0-70.0) H 12/04/20 05:40 Band Neutrophils % 16.0 % 12/04/20 05:40 Lymphocytes % (Manual) 2.0 % (13.4-35.0) L 12/04/20 05:40 Monocytes % (Manual) 5.0 % (0.0-7.3) 12/04/20 05:40 Eosinophils % (Manual) 2.0 % (0.0-4.3) 12/04/20 05:40 Basophils % (Manual) 1.0 % (0.0-1.8) 12/04/20 05:40 Nucleated RBC % Not Reportable 12/04/20 05:40 Seg Neutrophils # 10.0 K/mm3 (1.8-7.7) H 12/05/20 11:04 Seg Neutrophils # Man 16.1 K/mm3 (1.8-7.7) H 12/04/20 05:40 Band Neutrophils # 3.5 K/mm3 12/04/20 05:40 Lymphocytes # (Manual) 0.4 K/mm3 (1.2-5.4) L 12/04/20 05:40 Abs React Lymphs (Man) 0.0 K/mm3 12/04/20 05:40 Monocytes # (Manual) 1.1 K/mm3 (0.0-0.8) H 12/04/20 05:40 Eosinophils # (Manual) 0.4 K/mm3 (0.0-0.4) 12/04/20 05:40 Basophils # (Manual) 0.2 K/mm3 (0.0-0.1) H 12/04/20 05:40 Metamyelocytes # 0.0 K/mm3 12/04/20 05:40 Myelocytes # 0.0 K/mm3 12/04/20 05:40 Promyelocytes # 0.0 K/mm3 12/04/20 05:40 Blast Cells # 0.0 K/mm3 12/04/20 05:40 WBC Morphology Not Reportable 12/04/20 05:40 Hypersegmented Neuts Not Reportable 12/04/20 05:40 Hyposegmented Neuts Not Reportable 12/04/20 05:40 Hypogranular Neuts Not Reportable 12/04/20 05:40 Smudge Cells Not Reportable 12/04/20 05:40 Toxic Granulation Not Reportable 12/04/20 05:40 Toxic Vacuolation Not Reportable 12/04/20 05:40 Dohle Bodies Not Reportable 12/04/20 05:40 Pelger-Huet Anomaly Not Reportable 12/04/20 05:40 Solomon Rods Not Reportable 12/04/20 05:40 Platelet Estimate Not Reportable 12/04/20 05:40 Clumped Platelets 1+ 12/04/20 05:40 Plt Clumps, EDTA Not Reportable 12/04/20 05:40 Large Platelets Not Reportable 12/04/20 05:40 Giant Platelets Not Reportable 12/04/20 05:40 Platelet Satelliting Not Reportable 12/04/20 05:40 Plt Morphology Comment Not Reportable 12/04/20 05:40 RBC Morphology Normal 12/04/20 05:40 Dimorphic RBCs Not Reportable 12/04/20 05:40 Polychromasia Not Reportable 12/04/20 05:40 Hypochromasia Not Reportable 12/04/20 05:40 Poikilocytosis Not Reportable 12/04/20 05:40 Anisocytosis Not Reportable 12/04/20 05:40 Microcytosis Not Reportable 12/04/20 05:40 Macrocytosis Not Reportable 12/04/20 05:40 Spherocytes Not Reportable 12/04/20 05:40 Pappenheimer Bodies Not Reportable 12/04/20 05:40 Sickle Cells Not Reportable 12/04/20 05:40 Target Cells Not Reportable 12/04/20 05:40 Tear Drop Cells Not Reportable 12/04/20 05:40 Ovalocytes Not Reportable 12/04/20 05:40 Helmet Cells Not Reportable 12/04/20 05:40 [place] Bodies Not Reportable 12/04/20 05:40 [place] Rings Not Reportable 12/04/20 05:40 [place] Cells Not Reportable 12/04/20 05:40 Bite Cells Not Reportable 12/04/20 05:40 Crenated Cell Not Reportable 12/04/20 05:40 Elliptocytes Not Reportable 12/04/20 05:40 Acanthocytes (Spur) Not Reportable 12/04/20 05:40 Rouleaux Not Reportable 12/04/20 05:40 Hemoglobin C Crystals Not Reportable 12/04/20 05:40 Schistocytes Not Reportable 12/04/20 05:40 Malaria parasites Not Reportable 12/04/20 05:40 Charanjit Bodies Not Reportable 12/04/20 05:40 Hem Pathologist Commnt No 12/04/20 05:40 PT 13.9 Sec. (12.2-14.9) 12/07/20 04:00 INR 1.02 (0.87-1.13) 12/07/20 04:00 D-Dimer 1838.21 ng/mlDDU (0-234) H 12/04/20 10:41 ABG pH 7.398 (7.320-7.450) 12/09/20 04:00 POC ABG pCO2 54.4 mmHg (32.0-48.0) H 12/09/20 04:00 POC ABG pO2 98.7 mmHg (83-108) 12/09/20 04:00 POC ABG HCO3 32.8 12/09/20 04:00 ABG O2 Saturation 97.5 (0-100) 12/09/20 04:00 POC ABG Base Excess 6.8 12/09/20 04:00 ABG Hemoglobin 10.5 (12.0-17.5) L 12/09/20 04:00 ABG Oxyhemoglobin 96.5 (94-98) 12/09/20 04:00 ABG Methemoglobin 0.3 (0.0-1.5) 12/09/20 04:00 ABG Sodium 139.3 mmol/L (136.0-145.0) 12/09/20 04:00 ABG Potassium 3.7 mmol/L (3.40-4.50) 12/09/20 04:00 ABG Chloride 99.0 mmol/L (98-107) 12/09/20 04:00 ABG Glucose 204 mg/dL (65-95) H 12/09/20 04:00 Carboxyhemoglobin 0.7 (0.5-1.5) 12/09/20 04:00 FiO2 % 50.0 12/09/20 04:00 Sodium 142 mmol/L (137-145) 12/09/20 05:07 Potassium 4.1 mmol/L (3.6-5.0) 12/09/20 05:07 Chloride 99.9 mmol/L (98-107) 12/09/20 05:07 Carbon Dioxide 33 mmol/L (22-30) H 12/09/20 05:07 Anion Gap 13 mmol/L 12/09/20 05:07 BUN 38 mg/dL (7-17) H 12/09/20 05:07 Creatinine 0.8 mg/dL (0.6-1.2) 12/09/20 05:07 Estimated GFR > 60 ml/min 12/09/20 05:07 BUN/Creatinine Ratio 48 % 12/09/20 05:07 Glucose 189 mg/dL (65-100) H 12/09/20 05:07 POC Glucose 153 mg/dL (70-105) H 12/09/20 11:57 Calcium 9.8 mg/dL (8.4-10.2) 12/09/20 05:07 Phosphorus 3.80 mg/dL (2.5-4.5) 12/09/20 05:07 Magnesium 2.20 mg/dL (1.7-2.3) 12/09/20 05:07 Ferritin 399.0 ng/mL (10.0-200.0) H 12/04/20 10:41 Total Bilirubin 0.30 mg/dL (0.1-1.2) 12/04/20 05:40 Direct Bilirubin < 0.2 mg/dL (0-0.2) 11/29/20 07:48 Indirect Bilirubin 0.0 mg/dL 11/29/20 07:48 AST 19 units/L (5-40) 12/04/20 05:40 ALT 28 units/L (7-56) 12/04/20 05:40 Alkaline Phosphatase 93 units/L (35-129) 12/04/20 05:40 Lactate Dehydrogenase 386 units/L (91-180) H 12/04/20 10:41 Total Creatine Kinase 1132 units/L (30-135) H 11/30/20 14:12 CK-MB (CK-2) 14.6 ng/mL (0.0-4.0) H 11/30/20 14:12 CK-MB (CK-2) Rel Index 1.2 (0-4) 11/30/20 14:12 Troponin T < 0.010 ng/mL (0.00-0.029) 11/30/20 14:12 C-Reactive Protein 34.30 mg/dL (0.00-1.30) H 12/04/20 10:41 Total Protein 6.2 g/dL (6.3-8.2) L 12/04/20 05:40 Albumin 2.6 g/dL (3.9-5) L 12/04/20 05:40 Albumin/Globulin Ratio 0.7 % 12/04/20 05:40 HCG, Qual Negative (Negative) 11/29/20 07:48 Arterial Blood Glucose 204 mg/dL (65-95) H 12/09/20 04:00 Arterial Blood Ionized Calcium 4.9 mg/dL (4.6-5.3) 12/09/20 04:00 Urine Color Lauren (Yellow) 12/04/20 07:30 Urine Turbidity Turbid (Clear) 12/04/20 07:30 Urine pH 5.0 (5.0-7.0) 12/04/20 07:30 Ur Specific [place] 1.011 (1.003-1.030) 12/04/20 07:30 Urine Protein 100 mg/dl mg/dL (Negative) 12/04/20 07:30 Urine Glucose (UA) Neg mg/dL (Negative) 12/04/20 07:30 Urine Ketones Neg mg/dL (Negative) 12/04/20 07:30 Urine Blood Lg (Negative) 12/04/20 07:30 Urine Nitrite Neg (Negative) 12/04/20 07:30 Urine Bilirubin Neg (Negative) 12/04/20 07:30 Urine Urobilinogen < 2.0 mg/dL (<2.0) 12/04/20 07:30 Ur Leukocyte Esterase Mod (Negative) 12/04/20 07:30 Urine WBC (Auto) > 182.0 /HPF (0.0-6.0) H 12/04/20 07:30 Urine RBC (Auto) 33.0 /HPF (0.0-6.0) 12/04/20 07:30 Urine WBC Clumps 3+ /HPF 12/04/20 07:30 WBC Casts 17 /LPF 12/04/20 07:30 Urine Mucus 3+ /HPF 12/04/20 07:30 Coronavirus (PCR) Positive (Negative) A 12/03/20 08:00 Microbiology: Microbiology 12/04/20 00:54 Peripheral/Venous Blood Culture - Final NO GROWTH AFTER 5 DAYS 12/04/20 00:54 Peripheral/Venous Blood Culture - Final NO GROWTH AFTER 5 DAYS Dash/IV: Voiding Method Indwelling Catheter Active Medications - Current Medications Current Medications: Generic Name Dose Route Start Last Admin Trade Name Freq PRN Reason Stop Dose Admin Acetaminophen 650 mg 12/04/20 00:39 12/05/20 16:29 Acetaminophen 325 Mg Tab PO 650 mg Q6H PRN Administration Fever >101 Albuterol 2.5 mg 11/29/20 15:22 Albuterol 2.5 Mg/3 Ml Nebu IH Q4HRT PRN Shortness Of Breath Albuterol/Ipratropium 1 ampul 12/07/20 20:00 12/09/20 10:30 Ipratropium/Albuterol Sulfate 3 Ml Ampul.Neb IH 1 ampul Q12HRT KRYSTAL Administration Lipase/Protease/Amylase 1 each 11/29/20 15:23 Lipase 10,500/Protease 25,000/Amylase 43,750 (Units) Dr Ariza FEEDTUBE PRN PRN For Clogged Feeding Tube Ascorbic Acid 500 mg 12/04/20 22:00 12/09/20 09:44 Ascorbic Acid 500 Mg Tab PO 500 mg BID KRYSTAL Administration Dextrose 50 ml 12/05/20 10:34 Dextrose 50% In Water (25gm) 50 Ml Syringe IV Q30MIN PRN Hypoglycemia Protocol Famotidine 20 mg 11/30/20 15:00 12/09/20 09:44 Famotidine 20 Mg/2 Ml Inj IV 20 mg BID KRYSTAL Administration Fentanyl 50 mcg 11/29/20 10:22 Fentanyl 100 Mcg/2 Ml Inj IV Q10MIN PRN ANALGESIA Fondaparinux 2.5 mg 11/29/20 22:00 12/08/20 21:53 Fondaparinux 2.5 Mg/0.5 Ml Inj SUB-Q 2.5 mg Q24H KRYSTAL Administration Gabapentin 600 mg 11/30/20 17:00 12/09/20 09:45 Gabapentin 500 Mg/10 Ml Oral Liqd PO 600 mg BID KRYSTAL Administration Hydrochlorothiazide 12.5 mg 12/10/20 10:00 Hydrochlorothiazide 12.5 Mg Cap PO QDAY KRYSTAL Hydrophilic Ointment 1 applic 12/01/20 08:54 Lip Therapy Vaseline TP Q2HR PRN Dry Lips Midazolam HCl 100 mg/ Sodium 100 mls @ 2 mls/hr 11/29/20 12:00 12/09/20 11:02 Chloride IV 5 mg/hr TITR KRYSTAL 5 mls/hr Administration Protocol 2 MG/HR Fentanyl Citrate 2,000 mcg in 100 mls @ 6.45 mls/hr 11/29/20 12:30 12/09/20 11:02 Fentanyl Drip Premix IV 4 mcg/kg/hr TITR KRYSTAL 25.8 mls/hr Administration Protocol 1 MCG/KG/HR Nicardipine HCl 50 mg/ Sodium 250 mls @ 25 mls/hr 12/03/20 08:00 12/04/20 03 :26 Chloride IV 0 mg/hr TITR KRYSTAL 0 mls/hr Titration Protocol 5 MG/HR Cefepime HCl 2 gm in 100 mls @ 200 mls/hr 12/06/20 12:00 12/09/20 13:37 Cefepime/Ns 2 Gm/100 Ml IV 12/10/20 20:29 200 mls/hr Q8H KRYSTAL Administration Protocol Dexmedetomidine HCl 400 mcg/ 104 mls @ 6.885 mls/hr 12/08/20 16:00 12/09/20 13:37 Sodium Chloride IV 0.5 mcg/kg/hr TITRATE KRYSTAL 17.212 mls/hr Administration Protocol 0.2 MCG/KG/HR Propofol 1,000 mg in 100 mls @ 3.972 mls/hr 12/08/20 19:00 Diprivan 10 Mg/Ml IV TITR KRYSTAL Protocol 5 MCG/KG/MIN Insulin Human Regular 0 units 12/05/20 12:00 12/09/20 06:02 Insulin Regular, Human 100 Units/1 Ml SUB-Q 1 units Q6HR KRYSTAL Administration Protocol Midazolam HCl 2 mg 11/29/20 10:22 12/08/20 18:35 Midazolam 2 Mg/2 Ml Inj IV 2 mg Q10MIN PRN Administration Sedation Montelukast Sodium 10 mg 11/29/20 22:00 12/08/20 21:53 Montelukast 10 Mg Tab PO 10 mg HS KRYSTAL Administration Multi-Ingred Cream/Lotion/Oil/Oint 1 applic 12/01/20 08:54 Mineral Oil/Petrolatum, White Ophth Oint 3.5 Gm OU Q4HR PRN Dry Eye(s) Senna/Docusate Sodium 1 tab 11/29/20 10:00 12/09/20 09:44 Sennosides/Docusate Sodium 8.6/50 Mg Tab FEEDTUBE 1 tab BID KRYSTAL Administration Simple Syrup 15 ml 11/29/20 15:23 Simple Syrup 15 Ml FEEDTUBE PRN PRN Hypoglycemia Simple Syrup 30 ml 11/29/20 15:23 Simple Syrup 15 Ml FEEDTUBE PRN PRN Hypoglycemia Sodium Bicarbonate 325 mg 11/29/20 15:23 Sodium Bicarbonate 325 Mg Tab FEEDTUBE PRN PRN For Clogged Feeding Tube Zinc Sulfate 220 mg 12/05/20 10:00 12/09/20 09:44 Zinc Sulfate 220 Mg Cap PO 220 mg QDAY KRYSTAL Administration Nutrition/Malnutrition Assess - Dietary Evaluation Nutrition/Malnutrition Findings: Nutrition Notes Start: 11/30/20 09:03 Freq: Status: Active Protocol: Document 12/07/20 10:14 VICTORIA (Rec: 12/07/20 10:17 VICTORIA [id number]) Nutrition Notes Initial or Follow up Reassessment Current Diagnosis Respiratory Failure Other Pertinent Diagnosis allergic reaction, alpha gal, hx HTN Current Diet Vital HP at 65 ml/hr Labs/Tests BUN 29 BG 148 Pertinent Medications Reviewed Height 5 ft 6 in Weight 132.4 kg [place] Body Weight (kg) 59.09 BMI 47.1 Weight Status Morbidly Obese Subjective/Other Information Pt suffered code blue yesterday. RN reports TF at goal and pt tolerating. Percent of energy/protein needs met: 84%/91% Burn Absent Trauma Absent Difficulty In Swallowing Current % PO Negligible Minimum of two criteria No Fluid Accumulation Mild (non-severe) #1 Nutrition Diagnosis Inadequate oral intake Diagnosis Progress(for reassessment Continues documentation) Is patient on ventilator? Yes Is Patient Ambulatory and/or Out of Bed No [facility] 2421.060 Kcal/Kg value to use for calculation 14 Approximate Energy Requirements Using 1854 kcal/Kg Calculation Used for Recommendations Kcal/kg Additional Notes Protein needs: 2.5 g/kg IBW , 148 g Fluid needs: 1ml/kcal Nutrition Intervention Change Diet Order: continue Nutrition Support: Vital High Protein at 65 ml/hr flush 45 ml q4h Kcal 1,560 Protein (gm) 135 Fluid (mL) 1,304 Goal #1 Meet at least 75% of protein and kcal needs via TF Anticipated Discharge Needs: Unable to determine at this time Follow-Up By: 12/13/20 Additional Comments F/u: TF tolerance
--- NOTE | 2020-12-08 17:56 | Progress Note ---
Assessment and Plan Acute hypoxemic respiratory failure Angioedema Morbid obesity Mild leukocytosis Hypertension. h/o alpha-gal syndrome s/p Cardiopulmonary arrest with ROSC - await [facility] transfer - continue to wean supplemental oxygen for target O2 sats > 92% - continue Daily SAT and SBT assessment as tolerated - VAP bundle addressed - continue lung protective strategies - continue bronchodilators with pulmonary hygiene per RT - wean per pulmonary driven protocols otherwise - continue accuchecks with glycemic control per SSI (While critically ill target blood glucose of 140-180 mg/dL; avoid hypoglycemia) - sedation prn for target RASS -1 to -2, patient has dislodged ETT in the past - avoid nephrotoxins, renally dose all medications - continue to avoid benzodiazepine's, reduce the possibility of delirium - prn analgesia per CPOT score - Maintenance of sleep-wake cycle, avoid delirium - continue enteral nutritional support at goal rate as tolerated -Stress ulcer and VTE prophylaxis - PT/OT/ROM exercises - continue mobility protocol, off loading, frequent turning per facility protocol for pressure ulcer prevention - Monitor hemodynamics closely - continue other care per attending / other consultants Discussed with hospitalist service, they are following up bed status with [place] transfer [facility]. Dr. Meeks also states he will call the patient's to give updates COVID SPECIFIC INTERVENTIONS - Continue contact and airborne isolation - Remdesivir not indicated as per ID/Pulmonary developed protocols - No steroids secondary to stage of illness adn Solumedrol allergy - follow repeat COVID tests results - zinc and vitamin C supplementation - therapeutic anticoagulation per system Protocol based on d-dimer and clinical considerations (VTE prophylaxis) .... Re-evaluate in am & prn CONDITION: CRITICAL PROGNOSIS: GUARDED CODE STATUS: FULL CODE The high probability of a clinically significant, sudden or life-threatening deterioration of the [respiratory, cardiovascular & immunologic] system(s) required my full and direct attention, intervention and personal management. The aggregate critical care time was [34] minutes without overlap. Time includes spent on; [x] Data Review and interpretation [x] Patient assessment and monitoring of vital signs [x] Documentation [x] Medication orders and management Subjective Date of service: 12/08/20 Principal diagnosis: Acute Hypoxemic Respiratory Failure; Angioedema;Obesity; leukocytosis Interval history: Patient is seen today for: Acute hypoxemic respiratory failure; Angioedema; Morbid obesity; leukocytosis; HTN; H/O alpha-gal syndrome Seen and examined at bedside; 24hour events reviewed; nursing and respiratory care staff consulted; no adverse overnight events reported to me; resting in bed; remains on MVS; awake and alert, tracking voice. On minimal vent settings but ongoing agitation. No reported fevers today Objective Vital Signs - 12hr 12/08/20 12/08/20 12/08/20 06:00 06:30 07:00 Temperature Pulse Rate 102 H 96 H 96 H Pulse Rate [ Throughout] Respiratory 20 16 18 Rate Respiratory Rate [ Throughout] Blood Pressure 126/72 120/66 121/61 O2 Sat by Pulse 98 98 99 Oximetry 12/08/20 12/08/20 12/08/20 07:31 08:00 08:31 Temperature 99.8 F H Pulse Rate 104 H 108 H 106 H Pulse Rate [ Throughout] Respiratory 12 20 16 Rate Respiratory Rate [ Throughout] Blood Pressure 118/80 136/75 126/69 O2 Sat by Pulse 98 96 97 Oximetry 12/08/20 12/08/20 12/08/20 08:32 08:44 09:01 Temperature Pulse Rate 105 H 101 H Pulse Rate [ 124 H Throughout] Respiratory 20 Rate Respiratory 22 Rate [ Throughout] Blood Pressure 128/69 126/69 O2 Sat by Pulse 100 96 Oximetry 12/08/20 12/08/20 12/08/20 09:31 10:00 10:30 Temperature Pulse Rate 96 H 106 H 109 H Pulse Rate [ Throughout] Respiratory 12 18 20 Rate Respiratory Rate [ Throughout] Blood Pressure 126/69 137/70 127/76 O2 Sat by Pulse 99 98 98 Oximetry 12/08/20 12/08/20 12/08/20 11:00 11:30 12:00 Temperature 99.0 F Pulse Rate 108 H 114 H Pulse Rate [ Throughout] Respiratory 12 20 Rate Respiratory Rate [ Throughout] Blood Pressure 132/73 157/81 O2 Sat by Pulse 98 99 Oximetry 12/08/20 12/08/20 12/08/20 12:01 12:24 12:31 Temperature Pulse Rate 121 H 133 H 122 H Pulse Rate [ Throughout] Respiratory 26 H 13 Rate Respiratory Rate [ Throughout] Blood Pressure 150/83 196/80 146/84 O2 Sat by Pulse 98 98 97 Oximetry 12/08/20 12/08/20 12/08/20 13:00 13:30 14:00 Temperature Pulse Rate 114 H 118 H 115 H Pulse Rate [ Throughout] Respiratory 17 Rate Respiratory Rate [ Throughout] Blood Pressure 138/83 167/92 O2 Sat by Pulse 99 Oximetry 12/08/20 12/08/20 15:32 16:00 Temperature 98.9 F Pulse Rate 100 H Pulse Rate [ Throughout] Respiratory Rate Respiratory Rate [ Throughout] Blood Pressure 128/65 O2 Sat by Pulse 97 Oximetry Constitutional: no acute distress (sedated), other (young obese female without increased respiratory effort at rest on MVS) Eyes: non-icteric ENT: oropharynx moist, other (ETT 23 cm JOSELYN) Neck: supple, no lymphadenopathy, no JVD, other (large circumference; + healed trach scar) Effort: mildly labored Ascultation: Bilateral: diminished breath sounds, rales (coarse ), rhonchi Percussion: Bilateral: not dull Cardiovascular: regular rate and rhythm Gastrointestinal: normoactive bowel sounds, soft, non-tender, non-distended Integumentary: normal Extremities: no cyanosis, no edema, pink and warm, pulses normal Neurologic: non-focal exam, pupils equal and round, other (tracking voice, obeys simple one step commands) Psychiatric: other (on sedation) CBC and BMP: 12/11/20 06:05 12/11/20 06:05 ABG, PT/INR, D-dimer: ABG ABG pH 7.437 (7.320-7.450) 12/08/20 04:00 POC ABG pCO2 53.4 mmHg (32.0-48.0) H 12/08/20 04:00 POC ABG pO2 94.5 mmHg (83-108) 12/08/20 04:00 POC ABG HCO3 35.2 12/08/20 04:00 ABG O2 Saturation 97.6 (0-100) 12/08/20 04:00 PT/INR, D-dimer PT 13.9 Sec. (12.2-14.9) 12/07/20 04:00 INR 1.02 (0.87-1.13) 12/07/20 04:00 D-Dimer 1838.21 ng/mlDDU (0-234) H 12/04/20 10:41 Abnormal lab findings: Abnormal Labs 11/29/20 11/29/20 11/29/20 07:48 07:48 07:48 WBC 11.3 H RBC Hgb Hct RDW 18.0 H Lymph % (Auto) [place] # (Auto) Seg Neutrophils % Seg Neuts % (Manual) Lymphocytes % (Manual) Seg Neutrophils # 7.9 H Seg Neutrophils # Man Lymphocytes # (Manual) Monocytes # (Manual) Basophils # (Manual) D-Dimer ABG pH POC ABG pCO2 POC ABG pO2 ABG Hemoglobin ABG Oxyhemoglobin ABG Sodium ABG Potassium ABG Chloride ABG Glucose Carboxyhemoglobin Sodium 135 L Chloride Carbon Dioxide BUN Creatinine Glucose 204 H POC Glucose Calcium Ferritin Lactate Dehydrogenase Total Creatine Kinase CK-MB (CK-2) C-Reactive Protein Total Protein Albumin 3.7 L Arterial Blood Glucose Urine WBC (Auto) Coronavirus (PCR) 11/29/20 11/30/20 11/30/20 11:37 04:27 11:22 WBC RBC Hgb Hct RDW Lymph % (Auto) [place] # (Auto) Seg Neutrophils % Seg Neuts % (Manual) Lymphocytes % (Manual) Seg Neutrophils # Seg Neutrophils # Man Lymphocytes # (Manual) Monocytes # (Manual) Basophils # (Manual) D-Dimer ABG pH 7.318 L POC ABG pCO2 POC ABG pO2 76.1 L 196.4 H ABG Hemoglobin 11.96 L ABG Oxyhemoglobin 92.4 L 98.5 H ABG Sodium 133.7 L ABG Potassium 5.0 H ABG Chloride ABG Glucose 171 H Carboxyhemoglobin 2.5 H Sodium Chloride Carbon Dioxide BUN Creatinine Glucose POC Glucose 157 H Calcium Ferritin Lactate Dehydrogenase Total Creatine Kinase CK-MB (CK-2) C-Reactive Protein Total Protein Albumin Arterial Blood Glucose 171 H Urine WBC (Auto) Coronavirus (PCR) 11/30/20 11/30/20 11/30/20 14:12 17:19 23:42 WBC RBC Hgb Hct RDW Lymph % (Auto) [place] # (Auto) Seg Neutrophils % Seg Neuts % (Manual) Lymphocytes % (Manual) Seg Neutrophils # Seg Neutrophils # Man Lymphocytes # (Manual) Monocytes # (Manual) Basophils # (Manual) D-Dimer ABG pH POC ABG pCO2 POC ABG pO2 ABG Hemoglobin ABG Oxyhemoglobin ABG Sodium ABG Potassium ABG Chloride ABG Glucose Carboxyhemoglobin Sodium Chloride Carbon Dioxide BUN Creatinine Glucose POC Glucose 135 H 121 H Calcium Ferritin Lactate Dehydrogenase Total Creatine Kinase 1132 H CK-MB (CK-2) 14.6 H C-Reactive Protein Total Protein Albumin Arterial Blood Glucose Urine WBC (Auto) Coronavirus (PCR) 12/01/20 12/01/20 12/01/20 03:30 04:21 06:16 WBC RBC Hgb Hct RDW Lymph % (Auto) [place] # (Auto) Seg Neutrophils % Seg Neuts % (Manual) Lymphocytes % (Manual) Seg Neutrophils # Seg Neutrophils # Man Lymphocytes # (Manual) Monocytes # (Manual) Basophils # (Manual) D-Dimer ABG pH POC ABG pCO2 POC ABG pO2 37.6 L 76.2 L ABG Hemoglobin 10.4 L 10.8 L ABG Oxyhemoglobin 76.4 L 93.7 L ABG Sodium 112.8 L 110.9 L ABG Potassium ABG Chloride ABG Glucose 103 H 107 H Carboxyhemoglobin Sodium Chloride Carbon Dioxide BUN Creatinine Glucose POC Glucose 129 H Calcium Ferritin Lactate Dehydrogenase Total Creatine Kinase CK-MB (CK-2) C-Reactive Protein Total Protein Albumin Arterial Blood Glucose 103 H 107 H Urine WBC (Auto) Coronavirus (PCR) 12/02/20 12/02/20 12/02/20 04:00 12:02 17:10 WBC RBC Hgb Hct RDW Lymph % (Auto) [place] # (Auto) Seg Neutrophils % Seg Neuts % (Manual) Lymphocytes % (Manual) Seg Neutrophils # Seg Neutrophils # Man Lymphocytes # (Manual) Monocytes # (Manual) Basophils # (Manual) D-Dimer ABG pH 7.306 L POC ABG pCO2 58.0 H POC ABG pO2 58.5 L ABG Hemoglobin 11.4 L ABG Oxyhemoglobin 86.9 L ABG Sodium 124.7 L ABG Potassium ABG Chloride ABG Glucose 118 H Carboxyhemoglobin Sodium Chloride Carbon Dioxide BUN Creatinine Glucose POC Glucose 143 H 134 H Calcium Ferritin Lactate Dehydrogenase Total Creatine Kinase CK-MB (CK-2) C-Reactive Protein Total Protein Albumin Arterial Blood Glucose 118 H Urine WBC (Auto) Coronavirus (PCR) 12/03/20 12/03/20 12/04/20 05:10 08:00 03:32 WBC RBC Hgb Hct RDW Lymph % (Auto) [place] # (Auto) Seg Neutrophils % Seg Neuts % (Manual) Lymphocytes % (Manual) Seg Neutrophils # Seg Neutrophils # Man Lymphocytes # (Manual) Monocytes # (Manual) Basophils # (Manual) D-Dimer ABG pH 7.272 L POC ABG pCO2 60.1 H 54.6 H POC ABG pO2 82.8 L 78.6 L ABG Hemoglobin 11.4 L ABG Oxyhemoglobin ABG Sodium 132.2 L 130.2 L ABG Potassium ABG Chloride ABG Glucose 166 H 164 H Carboxyhemoglobin 0.4 L Sodium Chloride Carbon Dioxide BUN Creatinine Glucose POC Glucose Calcium Ferritin Lactate Dehydrogenase Total Creatine Kinase CK-MB (CK-2) C-Reactive Protein Total Protein Albumin Arterial Blood Glucose 166 H 164 H Urine WBC (Auto) Coronavirus (PCR) Positive A 12/04/20 12/04/20 12/04/20 05:40 05:40 07:30 WBC 21.7 H RBC Hgb Hct RDW 18.2 H Lymph % (Auto) [place] # (Auto) Seg Neutrophils % Seg Neuts % (Manual) 74.0 H Lymphocytes % (Manual) 2.0 L Seg Neutrophils # Seg Neutrophils # Man 16.1 H Lymphocytes # (Manual) 0.4 L Monocytes # (Manual) 1.1 H Basophils # (Manual) 0.2 H D-Dimer ABG pH POC ABG pCO2 POC ABG pO2 ABG Hemoglobin ABG Oxyhemoglobin ABG Sodium ABG Potassium ABG Chloride ABG Glucose Carboxyhemoglobin Sodium Chloride Carbon Dioxide BUN 26 H Creatinine 1.7 H D Glucose 157 H POC Glucose Calcium Ferritin Lactate Dehydrogenase Total Creatine Kinase CK-MB (CK-2) C-Reactive Protein Total Protein 6.2 L Albumin 2.6 L Arterial Blood Glucose Urine WBC (Auto) > 182.0 H Coronavirus (PCR) 12/04/20 12/04/20 12/04/20 10:41 10:41 10:41 WBC RBC Hgb Hct RDW Lymph % (Auto) [place] # (Auto) Seg Neutrophils % Seg Neuts % (Manual) Lymphocytes % (Manual) Seg Neutrophils # Seg Neutrophils # Man Lymphocytes # (Manual) Monocytes # (Manual) Basophils # (Manual) D-Dimer 1838.21 H ABG pH POC ABG pCO2 POC ABG pO2 ABG Hemoglobin ABG Oxyhemoglobin ABG Sodium ABG Potassium ABG Chloride ABG Glucose Carboxyhemoglobin Sodium Chloride Carbon Dioxide BUN Creatinine Glucose POC Glucose Calcium Ferritin 399.0 H Lactate Dehydrogenase 386 H Total Creatine Kinase CK-MB (CK-2) C-Reactive Protein 34.30 H Total Protein Albumin Arterial Blood Glucose Urine WBC (Auto) Coronavirus (PCR) 12/04/20 12/05/20 12/05/20 23:58 00:10 00:45 WBC RBC Hgb Hct RDW Lymph % (Auto) [place] # (Auto) Seg Neutrophils % Seg Neuts % (Manual) Lymphocytes % (Manual) Seg Neutrophils # Seg Neutrophils # Man Lymphocytes # (Manual) Monocytes # (Manual) Basophils # (Manual) D-Dimer ABG pH POC ABG pCO2 55.5 H POC ABG pO2 ABG Hemoglobin 11.2 L ABG Oxyhemoglobin ABG Sodium 135.0 L ABG Potassium 4.6 H ABG Chloride ABG Glucose 165 H Carboxyhemoglobin Sodium Chloride Carbon Dioxide BUN Creatinine Glucose POC Glucose 134 H 146 H Calcium Ferritin Lactate Dehydrogenase Total Creatine Kinase CK-MB (CK-2) C-Reactive Protein Total Protein Albumin Arterial Blood Glucose 165 H Urine WBC (Auto) Coronavirus (PCR) 12/05/20 12/05/20 12/05/20 11:04 11:04 11:52 WBC 13.0 H RBC 3.61 L Hgb Hct RDW 18.8 H Lymph % (Auto) 13.1 L [place] # (Auto) 0.9 H Seg Neutrophils % 77.6 H Seg Neuts % (Manual) Lymphocytes % (Manual) Seg Neutrophils # 10.0 H Seg Neutrophils # Man Lymphocytes # (Manual) Monocytes # (Manual) Basophils # (Manual) D-Dimer ABG pH POC ABG pCO2 POC ABG pO2 ABG Hemoglobin ABG Oxyhemoglobin ABG Sodium ABG Potassium ABG Chloride ABG Glucose Carboxyhemoglobin Sodium Chloride Carbon Dioxide 31 H BUN 21 H Creatinine Glucose 152 H POC Glucose 121 H Calcium Ferritin Lactate Dehydrogenase Total Creatine Kinase CK-MB (CK-2) C-Reactive Protein Total Protein Albumin Arterial Blood Glucose Urine WBC (Auto) Coronavirus (PCR) 12/05/20 12/05/20 12/06/20 17:31 23:37 04:00 WBC RBC Hgb Hct RDW Lymph % (Auto) [place] # (Auto) Seg Neutrophils % Seg Neuts % (Manual) Lymphocytes % (Manual) Seg Neutrophils # Seg Neutrophils # Man Lymphocytes # (Manual) Monocytes # (Manual) Basophils # (Manual) D-Dimer ABG pH 7.471 H POC ABG pCO2 POC ABG pO2 75.2 L ABG Hemoglobin 10.4 L ABG Oxyhemoglobin ABG Sodium 133.7 L ABG Potassium ABG Chloride ABG Glucose 120 H Carboxyhemoglobin Sodium Chloride Carbon Dioxide BUN Creatinine Glucose POC Glucose 148 H 133 H Calcium Ferritin Lactate Dehydrogenase Total Creatine Kinase CK-MB (CK-2) C-Reactive Protein Total Protein Albumin Arterial Blood Glucose 120 H Urine WBC (Auto) Coronavirus (PCR) 12/06/20 12/06/20 12/06/20 05:07 05:07 05:09 WBC RBC 3.37 L Hgb 9.4 L Hct 28.4 L RDW 18.3 H Lymph % (Auto) [place] # (Auto) Seg Neutrophils % Seg Neuts % (Manual) Lymphocytes % (Manual) Seg Neutrophils # Seg Neutrophils # Man Lymphocytes # (Manual) Monocytes # (Manual) Basophils # (Manual) D-Dimer ABG pH POC ABG pCO2 POC ABG pO2 ABG Hemoglobin ABG Oxyhemoglobin ABG Sodium ABG Potassium ABG Chloride ABG Glucose Carboxyhemoglobin Sodium Chloride Carbon Dioxide 33 H BUN 25 H Creatinine Glucose 131 H POC Glucose 122 H Calcium Ferritin Lactate Dehydrogenase Total Creatine Kinase CK-MB (CK-2) C-Reactive Protein Total Protein Albumin Arterial Blood Glucose Urine WBC (Auto) Coronavirus (PCR) 12/06/20 12/06/20 12/06/20 11:59 16:17 17:30 WBC RBC Hgb Hct RDW Lymph % (Auto) [place] # (Auto) Seg Neutrophils % Seg Neuts % (Manual) Lymphocytes % (Manual) Seg Neutrophils # Seg Neutrophils # Man Lymphocytes # (Manual) Monocytes # (Manual) Basophils # (Manual) D-Dimer ABG pH POC ABG pCO2 61.8 H POC ABG pO2 180.5 H ABG Hemoglobin ABG Oxyhemoglobin ABG Sodium ABG Potassium ABG Chloride ABG Glucose 142 H Carboxyhemoglobin Sodium Chloride Carbon Dioxide BUN Creatinine Glucose POC Glucose 120 H 114 H Calcium Ferritin Lactate Dehydrogenase Total Creatine Kinase CK-MB (CK-2) C-Reactive Protein Total Protein Albumin Arterial Blood Glucose 142 H Urine WBC (Auto) Coronavirus (PCR) 12/06/20 12/07/20 12/07/20 23:09 04:00 04:00 WBC RBC 3.47 L Hgb 9.5 L Hct 29.5 L RDW 18.7 H Lymph % (Auto) [place] # (Auto) Seg Neutrophils % Seg Neuts % (Manual) Lymphocytes % (Manual) Seg Neutrophils # Seg Neutrophils # Man Lymphocytes # (Manual) Monocytes # (Manual) Basophils # (Manual) D-Dimer ABG pH POC ABG pCO2 55.9 H POC ABG pO2 ABG Hemoglobin 11.6 L ABG Oxyhemoglobin ABG Sodium 135.2 L ABG Potassium 4.7 H ABG Chloride ABG Glucose 141 H Carboxyhemoglobin Sodium Chloride Carbon Dioxide BUN Creatinine Glucose POC Glucose 112 H Calcium Ferritin Lactate Dehydrogenase Total Creatine Kinase CK-MB (CK-2) C-Reactive Protein Total Protein Albumin Arterial Blood Glucose 141 H Urine WBC (Auto) Coronavirus (PCR) 12/07/20 12/07/20 12/07/20 05:00 05:28 12:20 WBC RBC Hgb Hct RDW Lymph % (Auto) [place] # (Auto) Seg Neutrophils % Seg Neuts % (Manual) Lymphocytes % (Manual) Seg Neutrophils # Seg Neutrophils # Man Lymphocytes # (Manual) Monocytes # (Manual) Basophils # (Manual) D-Dimer ABG pH POC ABG pCO2 POC ABG pO2 ABG Hemoglobin ABG Oxyhemoglobin ABG Sodium ABG Potassium ABG Chloride ABG Glucose Carboxyhemoglobin Sodium Chloride 96.6 L Carbon Dioxide 35 H BUN 29 H Creatinine Glucose 148 H POC Glucose 139 H 130 H Calcium Ferritin Lactate Dehydrogenase Total Creatine Kinase CK-MB (CK-2) C-Reactive Protein Total Protein Albumin Arterial Blood Glucose Urine WBC (Auto) Coronavirus (PCR) 12/07/20 12/07/20 12/08/20 16:54 23:15 04:00 WBC RBC Hgb Hct RDW Lymph % (Auto) [place] # (Auto) Seg Neutrophils % Seg Neuts % (Manual) Lymphocytes % (Manual) Seg Neutrophils # Seg Neutrophils # Man Lymphocytes # (Manual) Monocytes # (Manual) Basophils # (Manual) D-Dimer ABG pH POC ABG pCO2 53.4 H POC ABG pO2 ABG Hemoglobin 11.4 L ABG Oxyhemoglobin ABG Sodium ABG Potassium ABG Chloride 96.0 L ABG Glucose 149 H Carboxyhemoglobin Sodium Chloride Carbon Dioxide BUN Creatinine Glucose POC Glucose 121 H 166 H Calcium Ferritin Lactate Dehydrogenase Total Creatine Kinase CK-MB (CK-2) C-Reactive Protein Total Protein Albumin Arterial Blood Glucose 149 H Urine WBC (Auto) Coronavirus (PCR) 12/08/20 12/08/20 12/08/20 05:29 08:33 08:33 WBC 11.2 H RBC 3.64 L Hgb Hct 30.2 L RDW 18.1 H Lymph % (Auto) [place] # (Auto) Seg Neutrophils % Seg Neuts % (Manual) Lymphocytes % (Manual) Seg Neutrophils # Seg Neutrophils # Man Lymphocytes # (Manual) Monocytes # (Manual) Basophils # (Manual) D-Dimer ABG pH POC ABG pCO2 POC ABG pO2 ABG Hemoglobin ABG Oxyhemoglobin ABG Sodium ABG Potassium ABG Chloride ABG Glucose Carboxyhemoglobin Sodium Chloride 96.2 L Carbon Dioxide 33 H BUN 31 H Creatinine Glucose 166 H POC Glucose 128 H Calcium 10.3 H Ferritin Lactate Dehydrogenase Total Creatine Kinase CK-MB (CK-2) C-Reactive Protein Total Protein Albumin Arterial Blood Glucose Urine WBC (Auto) Coronavirus (PCR) 12/08/20 12/08/20 11:53 16:46 WBC RBC Hgb Hct RDW Lymph % (Auto) [place] # (Auto) Seg Neutrophils % Seg Neuts % (Manual) Lymphocytes % (Manual) Seg Neutrophils # Seg Neutrophils # Man Lymphocytes # (Manual) Monocytes # (Manual) Basophils # (Manual) D-Dimer ABG pH POC ABG pCO2 POC ABG pO2 ABG Hemoglobin ABG Oxyhemoglobin ABG Sodium ABG Potassium ABG Chloride ABG Glucose Carboxyhemoglobin Sodium Chloride Carbon Dioxide BUN Creatinine Glucose POC Glucose 170 H 157 H Calcium Ferritin Lactate Dehydrogenase Total Creatine Kinase CK-MB (CK-2) C-Reactive Protein Total Protein Albumin Arterial Blood Glucose Urine WBC (Auto) Coronavirus (PCR) Chest x-ray: image reviewed Allied health notes reviewed: RT
[2020-12-08] MEDS: MONTELUKAST 10 MG TAB PO SCH (21:53)
[2020-12-08] MEDS: FONDAPARINUX 2.5 MG/0.5 ML INJ SUB-Q SCH (21:53)
[2020-12-09] MEDS: fentaNYL DRIP Premix 2,000 MCG/100 ML BAG IV SCH ×4 (00:09→19:58)
[2020-12-09] MEDS: INSULIN REGULAR, HUMAN 100 UNITS/1 ML SUB-Q SCH ×4 (01:02→18:49)
[2020-12-09] MEDS: CEFEPIME/NS 2 GM/100 ML 2 GM/100 ML BAG IV SCH ×2 (03:56→13:37)
[2020-12-09 05:26] LABS: Hematocrit 29.2 % (30.3-42.9); Hemoglobin 9.8 gm/dl (10.1-14.3); Mean Corpuscular HGB Conc 34 % (30-34); Mean Corpuscular Volume 83 fl (79-97); Platelet Count 216 K/mm3 (140-440); Red Blood Count 3.53 M/mm3 (3.65-5.03); Red Cell Distribution Width 17.8 % (13.2-15.2)
[2020-12-09 05:56] LABS: BUN/Creatinine Ratio 48; Blood Urea Nitrogen 38 mg/dL (7-17); Calcium 9.8 mg/dL (8.4-10.2); Hemolysis Index 8
--- NOTE | 2020-12-09 06:00 | XRay Report ---
CHEST 1 VIEW INDICATION: hypoxia. COMPARISON: One day prior. FINDINGS: Support devices: Unchanged. Heart: Stable. Lungs/Pleura: Bilateral pulmonary opacities are stable. No pneumothorax. IMPRESSION: 1. Accounting for decreased lung volumes on today's exam, no significant change. Signer Name: Montrell Mclaughlin MD Signed: 12/09/2020 5:56 AM Workstation Name: [id number]
[2020-12-09] MEDS: FAMOTIDINE 20 MG/2 ML INJ IV SCH ×2 (09:44→22:19)
[2020-12-09] MEDS: ZINC SULFATE 220 MG CAP PO SCH (09:44)
[2020-12-09] MEDS: ASCORBIC ACID 500 MG TAB PO SCH ×2 (09:44→22:19)
[2020-12-09] MEDS: SENNOSIDES/DOCUSATE SODIUM 8.6/50 MG TAB FEEDTUBE SCH ×2 (09:44→22:20)
[2020-12-09] MEDS: hydroCHLOROthiazide 25 MG TAB PO SCH (09:44)
[2020-12-09] MEDS: GABAPENTIN 500 MG/10 ML ORAL LIQD PO SCH ×2 (09:45→22:18)
[2020-12-09] MEDS: IPRATROPIUM/ALBUTEROL SULFATE 3 ML AMPUL.NEB IH SCH ×2 (10:30→20:46)
[2020-12-09] MEDS: MIDAZOLAM 100 MG in SODIUM CHLORIDE 0.9% 80 ML IV SCH (11:02)
--- NOTE | 2020-12-09 15:56 | Progress Note ---
Assessment and Plan Acute hypoxemic respiratory failure on MVS s/p Cardiopulmoanry arrest with ROSC Angioedema Morbid obesity Mild leukocytosis, on going fevers Hypertension. H/O alpha-gal syndrome -Continue to titrate supplemental oxygen to keep SpO2 88-90% -Decrease PEEP to 8 - VAP bundle addressed, aspiration precautions HOB >40 - continue lung protective strategies - continue bronchodilators with pulmonary hygiene per RT -CXR, ABG as clinically indicated - continue accuchecks with glycemic control per SSI (While critically ill target blood glucose of 140-180 mg/dL; avoid hypoglycemia) - sedation prn for target RASS -2 to -3. Patient has inadvertently lost her ETT in bryan past resulting in a respiratory arrest s/p CPR with ROSC - avoid nephrotoxins, renaly dose all medications - continue to avoid benzodiazepines, reduce the possibility of delirium - analgesia per CPOT score - Maintenance of sleep-wake cycle, avoid delirium - continue enteral nutritional support at goal rate as tolerated - VTE prophylaxis -Stress ulcer prophylaxis -Complete 7 days of Cefepime per ID recommendations - PT/OT/ROM exercises - continue mobility protocol, off loading, frequent turning per facility protocol for pressure ulcer prevention - Monitor hemodynamics closely - continue other care per attending / other consultants - Awaiting bed at [facility] to facilitate a transfer. Discussed with Dr. Meeks, primary service. He states he will update family today. COVID SPECIFIC INTERVENTIONS - Continue contact and airborne isolation -No indication for active treatment at this time - therapeutic anticoagulation per system Protocol based on d-dimer and clinical considerations (VTE prophylaxis) .... Re-evaluate in am & prn CONDITION: CRITICAL PROGNOSIS: GUARDED CODE STATUS: FULL CODE The high probability of a clinically significant, sudden or life-threatening deterioration of the [respiratory, cardiovascular & immunologic] system(s) required my full and direct attention, intervention and personal management. The aggregate critical care time was [32] minutes without overlap. 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 Patient is seen today for: Acute hypoxemic respiratory failure; Angioedema; Morbid obesity; leukocytosis; HTN; H/O alpha-gal syndrome Seen and examined at bedside; 24hour events reviewed; nursing and respiratory care staff consulted; no adverse overnight events reported to me; resting in bed; remains on MVS; on going fevers, less agitation with addition of Precedex; awaiting transfer to [facility]. No vomiting, no diarrhea ACVC 20/450/+10/50% ABG 7.3/54/98.7/32 Objective Vital Signs - 12hr 12/09/20 12/09/20 12/09/20 04:00 04:30 05:00 Temperature 101.7 F H Pulse Rate 69 69 68 Pulse Rate [ Anterior Bilateral Throughout] Pulse Rate [ 69 From Monitor] Respiratory 20 20 20 Rate Respiratory Rate [Anterior Bilateral Throughout] Blood Pressure 103/41 104/45 110/49 O2 Sat by Pulse 95 94 95 Oximetry 12/09/20 12/09/20 12/09/20 05:30 06:00 06:30 Temperature Pulse Rate 77 88 73 Pulse Rate [ Anterior Bilateral Throughout] Pulse Rate [ From Monitor] Respiratory 19 15 20 Rate Respiratory Rate [Anterior Bilateral Throughout] Blood Pressure 112/51 129/67 114/49 O2 Sat by Pulse 97 96 95 Oximetry 12/09/20 12/09/20 12/09/20 07:00 07:30 08:00 Temperature 100.8 F H Pulse Rate 70 69 69 Pulse Rate [ Anterior Bilateral Throughout] Pulse Rate [ 70 From Monitor] Respiratory 20 20 20 Rate Respiratory Rate [Anterior Bilateral Throughout] Blood Pressure 106/45 104/44 104/49 O2 Sat by Pulse 93 94 96 Oximetry 12/09/20 12/09/20 12/09/20 08:30 09:00 09:30 Temperature Pulse Rate 69 71 70 Pulse Rate [ Anterior Bilateral Throughout] Pulse Rate [ From Monitor] Respiratory 20 20 20 Rate Respiratory Rate [Anterior Bilateral Throughout] Blood Pressure 103/44 106/45 102/42 O2 Sat by Pulse 96 95 95 Oximetry 12/09/20 12/09/20 12/09/20 10:00 10:30 11:00 Temperature Pulse Rate 72 70 75 Pulse Rate [ 76 Anterior Bilateral Throughout] Pulse Rate [ From Monitor] Respiratory 19 20 20 Rate Respiratory 22 Rate [Anterior Bilateral Throughout] Blood Pressure 109/51 104/49 119/55 O2 Sat by Pulse 95 95 95 Oximetry 12/09/20 12/09/20 12/09/20 11:30 11:33 12:00 Temperature 100.7 F H Pulse Rate 71 72 74 Pulse Rate [ Anterior Bilateral Throughout] Pulse Rate [ 72 From Monitor] Respiratory 18 Rate Respiratory Rate [Anterior Bilateral Throughout] Blood Pressure 106/47 106/47 O2 Sat by Pulse 94 95 96 Oximetry 12/09/20 12/09/20 12/09/20 12:01 12:30 13:01 Temperature Pulse Rate 75 68 75 Pulse Rate [ Anterior Bilateral Throughout] Pulse Rate [ From Monitor] Respiratory 16 20 18 Rate Respiratory Rate [Anterior Bilateral Throughout] Blood Pressure 107/50 109/48 115/46 O2 Sat by Pulse 98 95 98 Oximetry 12/09/20 12/09/20 13:30 14:00 Temperature Pulse Rate 69 82 Pulse Rate [ Anterior Bilateral Throughout] Pulse Rate [ From Monitor] Respiratory 20 17 Rate Respiratory Rate [Anterior Bilateral Throughout] Blood Pressure 114/51 116/59 O2 Sat by Pulse 95 95 Oximetry Constitutional: no acute distress (sedated), other (young obese female without increased respiratory effort at rest on MVS) Eyes: non-icteric ENT: oropharynx moist, other (ETT 22 cm JOSELYN, size 6 ETT) Neck: supple, no lymphadenopathy, no JVD, other (large circumference; + healed trach scar) Effort: mildly labored Ascultation: Bilateral: diminished breath sounds, rales (coarse ), rhonchi Percussion: Bilateral: not dull Cardiovascular: regular rate and rhythm, other (S1,S2) Gastrointestinal: normoactive bowel sounds, soft, non-tender, non-distended Integumentary: normal Extremities: no cyanosis, no edema, pink and warm, pulses normal Neurologic: non-focal exam, pupils equal and round, CN II-XII normal, motor strength normal and Psychiatric: other (sedated but rousable) CBC and BMP: 12/10/20 05:03 12/10/20 05:03 ABG, PT/INR, D-dimer: ABG ABG pH 7.398 (7.320-7.450) 12/09/20 04:00 POC ABG pCO2 54.4 mmHg (32.0-48.0) H 12/09/20 04:00 POC ABG pO2 98.7 mmHg (83-108) 12/09/20 04:00 POC ABG HCO3 32.8 12/09/20 04:00 ABG O2 Saturation 97.5 (0-100) 12/09/20 04:00 PT/INR, D-dimer PT 13.9 Sec. (12.2-14.9) 12/07/20 04:00 INR 1.02 (0.87-1.13) 12/07/20 04:00 D-Dimer 1838.21 ng/mlDDU (0-234) H 12/04/20 10:41 Abnormal lab findings: Abnormal Labs 11/29/20 11/29/20 11/29/20 07:48 07:48 07:48 WBC 11.3 H RBC Hgb Hct RDW 18.0 H Lymph % (Auto) [place] # (Auto) Seg Neutrophils % Seg Neuts % (Manual) Lymphocytes % (Manual) Seg Neutrophils # 7.9 H Seg Neutrophils # Man Lymphocytes # (Manual) Monocytes # (Manual) Basophils # (Manual) D-Dimer ABG pH POC ABG pCO2 POC ABG pO2 ABG Hemoglobin ABG Oxyhemoglobin ABG Sodium ABG Potassium ABG Chloride ABG Glucose Carboxyhemoglobin Sodium 135 L Chloride Carbon Dioxide BUN Creatinine Glucose 204 H POC Glucose Calcium Ferritin Lactate Dehydrogenase Total Creatine Kinase CK-MB (CK-2) C-Reactive Protein Total Protein Albumin 3.7 L Arterial Blood Glucose Urine WBC (Auto) Coronavirus (PCR) 11/29/20 11/30/20 11/30/20 11:37 04:27 11:22 WBC RBC Hgb Hct RDW Lymph % (Auto) [place] # (Auto) Seg Neutrophils % Seg Neuts % (Manual) Lymphocytes % (Manual) Seg Neutrophils # Seg Neutrophils # Man Lymphocytes # (Manual) Monocytes # (Manual) Basophils # (Manual) D-Dimer ABG pH 7.318 L POC ABG pCO2 POC ABG pO2 76.1 L 196.4 H ABG Hemoglobin 11.96 L ABG Oxyhemoglobin 92.4 L 98.5 H ABG Sodium 133.7 L ABG Potassium 5.0 H ABG Chloride ABG Glucose 171 H Carboxyhemoglobin 2.5 H Sodium Chloride Carbon Dioxide BUN Creatinine Glucose POC Glucose 157 H Calcium Ferritin Lactate Dehydrogenase Total Creatine Kinase CK-MB (CK-2) C-Reactive Protein Total Protein Albumin Arterial Blood Glucose 171 H Urine WBC (Auto) Coronavirus (PCR) 11/30/20 11/30/20 11/30/20 14:12 17:19 23:42 WBC RBC Hgb Hct RDW Lymph % (Auto) [place] # (Auto) Seg Neutrophils % Seg Neuts % (Manual) Lymphocytes % (Manual) Seg Neutrophils # Seg Neutrophils # Man Lymphocytes # (Manual) Monocytes # (Manual) Basophils # (Manual) D-Dimer ABG pH POC ABG pCO2 POC ABG pO2 ABG Hemoglobin ABG Oxyhemoglobin ABG Sodium ABG Potassium ABG Chloride ABG Glucose Carboxyhemoglobin Sodium Chloride Carbon Dioxide BUN Creatinine Glucose POC Glucose 135 H 121 H Calcium Ferritin Lactate Dehydrogenase Total Creatine Kinase 1132 H CK-MB (CK-2) 14.6 H C-Reactive Protein Total Protein Albumin Arterial Blood Glucose Urine WBC (Auto) Coronavirus (PCR) 12/01/20 12/01/20 12/01/20 03:30 04:21 06:16 WBC RBC Hgb Hct RDW Lymph % (Auto) [place] # (Auto) Seg Neutrophils % Seg Neuts % (Manual) Lymphocytes % (Manual) Seg Neutrophils # Seg Neutrophils # Man Lymphocytes # (Manual) Monocytes # (Manual) Basophils # (Manual) D-Dimer ABG pH POC ABG pCO2 POC ABG pO2 37.6 L 76.2 L ABG Hemoglobin 10.4 L 10.8 L ABG Oxyhemoglobin 76.4 L 93.7 L ABG Sodium 112.8 L 110.9 L ABG Potassium ABG Chloride ABG Glucose 103 H 107 H Carboxyhemoglobin Sodium Chloride Carbon Dioxide BUN Creatinine Glucose POC Glucose 129 H Calcium Ferritin Lactate Dehydrogenase Total Creatine Kinase CK-MB (CK-2) C-Reactive Protein Total Protein Albumin Arterial Blood Glucose 103 H 107 H Urine WBC (Auto) Coronavirus (PCR) 12/02/20 12/02/20 12/02/20 04:00 12:02 17:10 WBC RBC Hgb Hct RDW Lymph % (Auto) [place] # (Auto) Seg Neutrophils % Seg Neuts % (Manual) Lymphocytes % (Manual) Seg Neutrophils # Seg Neutrophils # Man Lymphocytes # (Manual) Monocytes # (Manual) Basophils # (Manual) D-Dimer ABG pH 7.306 L POC ABG pCO2 58.0 H POC ABG pO2 58.5 L ABG Hemoglobin 11.4 L ABG Oxyhemoglobin 86.9 L ABG Sodium 124.7 L ABG Potassium ABG Chloride ABG Glucose 118 H Carboxyhemoglobin Sodium Chloride Carbon Dioxide BUN Creatinine Glucose POC Glucose 143 H 134 H Calcium Ferritin Lactate Dehydrogenase Total Creatine Kinase CK-MB (CK-2) C-Reactive Protein Total Protein Albumin Arterial Blood Glucose 118 H Urine WBC (Auto) Coronavirus (PCR) 12/03/20 12/03/20 12/04/20 05:10 08:00 03:32 WBC RBC Hgb Hct RDW Lymph % (Auto) [place] # (Auto) Seg Neutrophils % Seg Neuts % (Manual) Lymphocytes % (Manual) Seg Neutrophils # Seg Neutrophils # Man Lymphocytes # (Manual) Monocytes # (Manual) Basophils # (Manual) D-Dimer ABG pH 7.272 L POC ABG pCO2 60.1 H 54.6 H POC ABG pO2 82.8 L 78.6 L ABG Hemoglobin 11.4 L ABG Oxyhemoglobin ABG Sodium 132.2 L 130.2 L ABG Potassium ABG Chloride ABG Glucose 166 H 164 H Carboxyhemoglobin 0.4 L Sodium Chloride Carbon Dioxide BUN Creatinine Glucose POC Glucose Calcium Ferritin Lactate Dehydrogenase Total Creatine Kinase CK-MB (CK-2) C-Reactive Protein Total Protein Albumin Arterial Blood Glucose 166 H 164 H Urine WBC (Auto) Coronavirus (PCR) Positive A 12/04/20 12/04/20 12/04/20 05:40 05:40 07:30 WBC 21.7 H RBC Hgb Hct RDW 18.2 H Lymph % (Auto) [place] # (Auto) Seg Neutrophils % Seg Neuts % (Manual) 74.0 H Lymphocytes % (Manual) 2.0 L Seg Neutrophils # Seg Neutrophils # Man 16.1 H Lymphocytes # (Manual) 0.4 L Monocytes # (Manual) 1.1 H Basophils # (Manual) 0.2 H D-Dimer ABG pH POC ABG pCO2 POC ABG pO2 ABG Hemoglobin ABG Oxyhemoglobin ABG Sodium ABG Potassium ABG Chloride ABG Glucose Carboxyhemoglobin Sodium Chloride Carbon Dioxide BUN 26 H Creatinine 1.7 H D Glucose 157 H POC Glucose Calcium Ferritin Lactate Dehydrogenase Total Creatine Kinase CK-MB (CK-2) C-Reactive Protein Total Protein 6.2 L Albumin 2.6 L Arterial Blood Glucose Urine WBC (Auto) > 182.0 H Coronavirus (PCR) 12/04/20 12/04/20 12/04/20 10:41 10:41 10:41 WBC RBC Hgb Hct RDW Lymph % (Auto) [place] # (Auto) Seg Neutrophils % Seg Neuts % (Manual) Lymphocytes % (Manual) Seg Neutrophils # Seg Neutrophils # Man Lymphocytes # (Manual) Monocytes # (Manual) Basophils # (Manual) D-Dimer 1838.21 H ABG pH POC ABG pCO2 POC ABG pO2 ABG Hemoglobin ABG Oxyhemoglobin ABG Sodium ABG Potassium ABG Chloride ABG Glucose Carboxyhemoglobin Sodium Chloride Carbon Dioxide BUN Creatinine Glucose POC Glucose Calcium Ferritin 399.0 H Lactate Dehydrogenase 386 H Total Creatine Kinase CK-MB (CK-2) C-Reactive Protein 34.30 H Total Protein Albumin Arterial Blood Glucose Urine WBC (Auto) Coronavirus (PCR) 12/04/20 12/05/20 12/05/20 23:58 00:10 00:45 WBC RBC Hgb Hct RDW Lymph % (Auto) [place] # (Auto) Seg Neutrophils % Seg Neuts % (Manual) Lymphocytes % (Manual) Seg Neutrophils # Seg Neutrophils # Man Lymphocytes # (Manual) Monocytes # (Manual) Basophils # (Manual) D-Dimer ABG pH POC ABG pCO2 55.5 H POC ABG pO2 ABG Hemoglobin 11.2 L ABG Oxyhemoglobin ABG Sodium 135.0 L ABG Potassium 4.6 H ABG Chloride ABG Glucose 165 H Carboxyhemoglobin Sodium Chloride Carbon Dioxide BUN Creatinine Glucose POC Glucose 134 H 146 H Calcium Ferritin Lactate Dehydrogenase Total Creatine Kinase CK-MB (CK-2) C-Reactive Protein Total Protein Albumin Arterial Blood Glucose 165 H Urine WBC (Auto) Coronavirus (PCR) 12/05/20 12/05/20 12/05/20 11:04 11:04 11:52 WBC 13.0 H RBC 3.61 L Hgb Hct RDW 18.8 H Lymph % (Auto) 13.1 L [place] # (Auto) 0.9 H Seg Neutrophils % 77.6 H Seg Neuts % (Manual) Lymphocytes % (Manual) Seg Neutrophils # 10.0 H Seg Neutrophils # Man Lymphocytes # (Manual) Monocytes # (Manual) Basophils # (Manual) D-Dimer ABG pH POC ABG pCO2 POC ABG pO2 ABG Hemoglobin ABG Oxyhemoglobin ABG Sodium ABG Potassium ABG Chloride ABG Glucose Carboxyhemoglobin Sodium Chloride Carbon Dioxide 31 H BUN 21 H Creatinine Glucose 152 H POC Glucose 121 H Calcium Ferritin Lactate Dehydrogenase Total Creatine Kinase CK-MB (CK-2) C-Reactive Protein Total Protein Albumin Arterial Blood Glucose Urine WBC (Auto) Coronavirus (PCR) 12/05/20 12/05/20 12/06/20 17:31 23:37 04:00 WBC RBC Hgb Hct RDW Lymph % (Auto) [place] # (Auto) Seg Neutrophils % Seg Neuts % (Manual) Lymphocytes % (Manual) Seg Neutrophils # Seg Neutrophils # Man Lymphocytes # (Manual) Monocytes # (Manual) Basophils # (Manual) D-Dimer ABG pH 7.471 H POC ABG pCO2 POC ABG pO2 75.2 L ABG Hemoglobin 10.4 L ABG Oxyhemoglobin ABG Sodium 133.7 L ABG Potassium ABG Chloride ABG Glucose 120 H Carboxyhemoglobin Sodium Chloride Carbon Dioxide BUN Creatinine Glucose POC Glucose 148 H 133 H Calcium Ferritin Lactate Dehydrogenase Total Creatine Kinase CK-MB (CK-2) C-Reactive Protein Total Protein Albumin Arterial Blood Glucose 120 H Urine WBC (Auto) Coronavirus (PCR) 12/06/20 12/06/20 12/06/20 05:07 05:07 05:09 WBC RBC 3.37 L Hgb 9.4 L Hct 28.4 L RDW 18.3 H Lymph % (Auto) [place] # (Auto) Seg Neutrophils % Seg Neuts % (Manual) Lymphocytes % (Manual) Seg Neutrophils # Seg Neutrophils # Man Lymphocytes # (Manual) Monocytes # (Manual) Basophils # (Manual) D-Dimer ABG pH POC ABG pCO2 POC ABG pO2 ABG Hemoglobin ABG Oxyhemoglobin ABG Sodium ABG Potassium ABG Chloride ABG Glucose Carboxyhemoglobin Sodium Chloride Carbon Dioxide 33 H BUN 25 H Creatinine Glucose 131 H POC Glucose 122 H Calcium Ferritin Lactate Dehydrogenase Total Creatine Kinase CK-MB (CK-2) C-Reactive Protein Total Protein Albumin Arterial Blood Glucose Urine WBC (Auto) Coronavirus (PCR) 12/06/20 12/06/20 12/06/20 11:59 16:17 17:30 WBC RBC Hgb Hct RDW Lymph % (Auto) [place] # (Auto) Seg Neutrophils % Seg Neuts % (Manual) Lymphocytes % (Manual) Seg Neutrophils # Seg Neutrophils # Man Lymphocytes # (Manual) Monocytes # (Manual) Basophils # (Manual) D-Dimer ABG pH POC ABG pCO2 61.8 H POC ABG pO2 180.5 H ABG Hemoglobin ABG Oxyhemoglobin ABG Sodium ABG Potassium ABG Chloride ABG Glucose 142 H Carboxyhemoglobin Sodium Chloride Carbon Dioxide BUN Creatinine Glucose POC Glucose 120 H 114 H Calcium Ferritin Lactate Dehydrogenase Total Creatine Kinase CK-MB (CK-2) C-Reactive Protein Total Protein Albumin Arterial Blood Glucose 142 H Urine WBC (Auto) Coronavirus (PCR) 12/06/20 12/07/20 12/07/20 23:09 04:00 04:00 WBC RBC 3.47 L Hgb 9.5 L Hct 29.5 L RDW 18.7 H Lymph % (Auto) [place] # (Auto) Seg Neutrophils % Seg Neuts % (Manual) Lymphocytes % (Manual) Seg Neutrophils # Seg Neutrophils # Man Lymphocytes # (Manual) Monocytes # (Manual) Basophils # (Manual) D-Dimer ABG pH POC ABG pCO2 55.9 H POC ABG pO2 ABG Hemoglobin 11.6 L ABG Oxyhemoglobin ABG Sodium 135.2 L ABG Potassium 4.7 H ABG Chloride ABG Glucose 141 H Carboxyhemoglobin Sodium Chloride Carbon Dioxide BUN Creatinine Glucose POC Glucose 112 H Calcium Ferritin Lactate Dehydrogenase Total Creatine Kinase CK-MB (CK-2) C-Reactive Protein Total Protein Albumin Arterial Blood Glucose 141 H Urine WBC (Auto) Coronavirus (PCR) 12/07/20 12/07/20 12/07/20 05:00 05:28 12:20 WBC RBC Hgb Hct RDW Lymph % (Auto) [place] # (Auto) Seg Neutrophils % Seg Neuts % (Manual) Lymphocytes % (Manual) Seg Neutrophils # Seg Neutrophils # Man Lymphocytes # (Manual) Monocytes # (Manual) Basophils # (Manual) D-Dimer ABG pH POC ABG pCO2 POC ABG pO2 ABG Hemoglobin ABG Oxyhemoglobin ABG Sodium ABG Potassium ABG Chloride ABG Glucose Carboxyhemoglobin Sodium Chloride 96.6 L Carbon Dioxide 35 H BUN 29 H Creatinine Glucose 148 H POC Glucose 139 H 130 H Calcium Ferritin Lactate Dehydrogenase Total Creatine Kinase CK-MB (CK-2) C-Reactive Protein Total Protein Albumin Arterial Blood Glucose Urine WBC (Auto) Coronavirus (PCR) 09/08/21 09/08/21 09/09/21 16:54 23:15 04:00 WBC RBC Hgb Hct RDW Lymph % (Auto) [place] # (Auto) Seg Neutrophils % Seg Neuts % (Manual) Lymphocytes % (Manual) Seg Neutrophils # Seg Neutrophils # Man Lymphocytes # (Manual) Monocytes # (Manual) Basophils # (Manual) D-Dimer ABG pH POC ABG pCO2 53.4 H POC ABG pO2 ABG Hemoglobin 11.4 L ABG Oxyhemoglobin ABG Sodium ABG Potassium ABG Chloride 96.0 L ABG Glucose 149 H Carboxyhemoglobin Sodium Chloride Carbon Dioxide BUN Creatinine Glucose POC Glucose 121 H 166 H Calcium Ferritin Lactate Dehydrogenase Total Creatine Kinase CK-MB (CK-2) C-Reactive Protein Total Protein Albumin Arterial Blood Glucose 149 H Urine WBC (Auto) Coronavirus (PCR) 12/08/20 12/08/20 12/08/20 05:29 08:33 08:33 WBC 11.2 H RBC 3.64 L Hgb Hct 30.2 L RDW 18.1 H Lymph % (Auto) [place] # (Auto) Seg Neutrophils % Seg Neuts % (Manual) Lymphocytes % (Manual) Seg Neutrophils # Seg Neutrophils # Man Lymphocytes # (Manual) Monocytes # (Manual) Basophils # (Manual) D-Dimer ABG pH POC ABG pCO2 POC ABG pO2 ABG Hemoglobin ABG Oxyhemoglobin ABG Sodium ABG Potassium ABG Chloride ABG Glucose Carboxyhemoglobin Sodium Chloride 96.2 L Carbon Dioxide 33 H BUN 31 H Creatinine Glucose 166 H POC Glucose 128 H Calcium 10.3 H Ferritin Lactate Dehydrogenase Total Creatine Kinase CK-MB (CK-2) C-Reactive Protein Total Protein Albumin Arterial Blood Glucose Urine WBC (Auto) Coronavirus (PCR) 12/08/20 12/08/20 12/09/20 11:53 16:46 00:20 WBC RBC Hgb Hct RDW Lymph % (Auto) [place] # (Auto) Seg Neutrophils % Seg Neuts % (Manual) Lymphocytes % (Manual) Seg Neutrophils # Seg Neutrophils # Man Lymphocytes # (Manual) Monocytes # (Manual) Basophils # (Manual) D-Dimer ABG pH POC ABG pCO2 POC ABG pO2 ABG Hemoglobin ABG Oxyhemoglobin ABG Sodium ABG Potassium ABG Chloride ABG Glucose Carboxyhemoglobin Sodium Chloride Carbon Dioxide BUN Creatinine Glucose POC Glucose 170 H 157 H 164 H Calcium Ferritin Lactate Dehydrogenase Total Creatine Kinase CK-MB (CK-2) C-Reactive Protein Total Protein Albumin Arterial Blood Glucose Urine WBC (Auto) Coronavirus (PCR) 12/09/20 12/09/20 12/09/20 04:00 05:07 05:07 WBC 11.4 H RBC 3.53 L Hgb 9.8 L Hct 29.2 L RDW 17.8 H Lymph % (Auto) [place] # (Auto) Seg Neutrophils % Seg Neuts % (Manual) Lymphocytes % (Manual) Seg Neutrophils # Seg Neutrophils # Man Lymphocytes # (Manual) Monocytes # (Manual) Basophils # (Manual) D-Dimer ABG pH POC ABG pCO2 54.4 H POC ABG pO2 ABG Hemoglobin 10.5 L ABG Oxyhemoglobin ABG Sodium ABG Potassium ABG Chloride ABG Glucose 204 H Carboxyhemoglobin Sodium Chloride Carbon Dioxide 33 H BUN 38 H Creatinine Glucose 189 H POC Glucose Calcium Ferritin Lactate Dehydrogenase Total Creatine Kinase CK-MB (CK-2) C-Reactive Protein Total Protein Albumin Arterial Blood Glucose 204 H Urine WBC (Auto) Coronavirus (PCR) 12/09/20 12/09/20 05:30 11:57 WBC RBC Hgb Hct RDW Lymph % (Auto) [place] # (Auto) Seg Neutrophils % Seg Neuts % (Manual) Lymphocytes % (Manual) Seg Neutrophils # Seg Neutrophils # Man Lymphocytes # (Manual) Monocytes # (Manual) Basophils # (Manual) D-Dimer ABG pH POC ABG pCO2 POC ABG pO2 ABG Hemoglobin ABG Oxyhemoglobin ABG Sodium ABG Potassium ABG Chloride ABG Glucose Carboxyhemoglobin Sodium Chloride Carbon Dioxide BUN Creatinine Glucose POC Glucose 190 H 153 H Calcium Ferritin Lactate Dehydrogenase Total Creatine Kinase CK-MB (CK-2) C-Reactive Protein Total Protein Albumin Arterial Blood Glucose Urine WBC (Auto) Coronavirus (PCR) Chest x-ray: image reviewed Allied health notes reviewed: RT
--- NOTE | 2020-12-09 16:27 | Progress Note ---
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 Neuro: h/o migraines, peripheral neuropathy -Sedated with fentanyl, Versed, Precedex -Goal RASS 0 to -1 -Avoid delirium -SAT trials when appropriate -Xanax as needed -Scheduled gabapentin -Bilateral restraints for safety Cardio: ST,h/o HTN, s/p hypertensive urgency, s/p cardiac arrest -S/p Cardene drip -Blood pressure monitoring per protocol -Restarted home hydrochlorothiazide -S/p cardiac arrest on 12/06 Resp: Acute hypoxic respiratory failure, severe tracheal stenosis, bronchial asthma exacerbation -Patient was intubated in the emergency department for ventilation support due to severe angioedema -CCM consulted, appreciate recommendations -VAP bundle -Daily SBT trial when appropriate -Daily SPO2 monitoring -Daily CXR and ABG -A.m. vent settings assist control TV 450, rate 20, PEEP 8, 50% FiO2 -Intubated with 6 oett at 20 at the lips -See RT notes for weaning -Steroids GI: Morbid obesity -Nutrition consulted -Tube feedings at goal -Bowel regimen with Senokot -24-hour net positive 430for 30 -PPI : Acute kidney injury 2/2 Vasomotor nephropathy -Presented with a BUN/creatinine of 0.8/10 which increased to 1.7/26 on 12/04 but no down trending -Significant output -Daily weights -Avoid nephrotoxic medications -Renally dose medications -Dash -Trend BMP ID: Acute sepsis, hereditary idiopathic angioedema and urticia, Alpha gal syndrome, COVID-19 infection, febrile illness, allergic reaction, gram-negative martín in urine culture -Infectious disease consulted, appreciate recommendations -h/o multiple intubations and tracheostomy in the past, patient has multiple allergies -Steroids, Benadryl -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 upon discharge -Per the patient has been positive for COVID-19 for approximately 20 days -ABX per ID: Escalated to cefepime from azithromycin and ceftriaxone -Droplet/agitation precautions -Per ID avoid vancomycin due to NINI however start if blood cultures turn positive -Follow WBC and culture data -Follow fever curve -Per ID no acute therapy indicated given duration since onset Endo: h/o DM type II, hyperglycemia -SSI -Avoid hypoglycemia -BG every 6 Heme: Leukocytosis -Trend CBC -Patient's antibiotic therapy -Patient is also on steroids -Bilateral lower extremity Doppler ultrasound completed-> no DVT The high probability of a clinically significant, sudden or life threatening deterioration of the [multi] system(s) required my full and direct attention, intervention and personal management. The aggregate critical care time was [60] minutes. This time is in addition to time spent performing reported procedures but includes the following: [x] Data Review and interpretation [x] Patient assessment and monitoring of vital signs [x] Documentation [x] Medication orders and management Disposition Plan: icu Total Time Spent with Patient (Minutes): 60 History Interval history: This is a 39-year-old female with HTN, migraines, asthma, peripheral neuropathy, morbid obesity severe tracheal stenosis, idiopathic heredity angioedema and uti caria, alphagal syndrome s/p trach and multiple intubations who presented to emergency department on 11/29 for allergic reaction. Patient was intubated in the emergency department. Per family IV Benadryl, ketamine and Decadron work for spasms and stridor. Patient reportedly used EpiPen prior to arrival to emergency department. Patient is a being admitted to the hospital service with consult to [facility] for acute respiratory failure with hypoxemia secondary to hereditary angioedema and allergic reaction, hypertensive urgency. 11/30: Patient is on vent but awake and communicative. She is anxious. Patient does not know what triggered current recurrence of angioedema. FiO2 35%. Hemodynamically stable. Discussed with nursing staff and the patient, she communicates with writing. 12/01: Patient remains on vent and sedated. Current FiO2 30%. No acute events from overnight reported. Angioedema of face seems to improving. Hemodynamically stable. Pulmonary managing ventilator. Will be extubated when angioedema improved significantly. Discussed with the nursing staff. 12/02/20; Dr. Estrada recommended to initiate transfer to [facility] under the care of patient's ENT surgeon Dr. Carias I called [facility] at [phone] and requested a transfer, discussed in detail with the transfer center nurse Ms. River She she took all the patient's information and added the name of the patient to the list of waiting for ICU transfers and reported that there are no ICU beds available at this point. Would call back, and said she would request for a facesheet I informed the above information to sterile technician Dr. Estrada ,ICU charge nurse and the patient's nurse. Will follow up with the transfer process 12/03/2020; Ascencio PCR test is positive today reports patient has been Covid positive for the last 20 days without any symptoms Management per guidelines, ID consult 12/03/20 20:18: I called patient's spouse Mr. Manoj Sol at [phone] and discussed in detail patient's condition, treatment plan, tests and reports, efforts to transfer the patient to [facility], however could not be successfully till now due to unavailability of ICU beds at [facility] at this point, he wanted to know the plan of extubation here in the hospital, I encouraged him to call back tomorrow to discuss with pulmonary critical physician Dr. Estrada. I answered all his questions, he also reports that patient Ms. Ebenezer Lynn has been Covid positive for the last 20 days. I encouraged him to call back if she has any new concerns regarding the patient's condition no other treatment. He was appreciative of my call 12/04/2020; Persistent fevers, persistent positive COVID-19 ID consulted, awaiting transfer to [facility] Discussed extensively with patient's yesterday Patient is critically ill ,very poor prognosis 12/05: Patient's updated by [facility], awaiting transfer to [facility]. 12/06:CASSIUS overnight. This evening patient was agitated and bite down on OETT and became hypoxic. Eventually losing her pulse and received ACLS. Dr. Tavo Meeks attempted to update of events but no answer. See code sheet/note for details I updated pt mother over the phone as she questioned about "organ failure" and need for trach. She stated pt and her are against a trach. 12/07: CASSIUS overnight. updated on cardiac arrest yesterday. States that the patient and her would like to avoid a tracheostomy if possible however if emergent tracheostomy is needed then can be performed. Patient and are awaiting visit to [facility] for surgery for tracheal stenosis. Manoj PhelpsEbenezer stated that mother in-law Nicole York may be contacted if Manoj is not able to be reached in case of emergency. Her number is [phone] 12/08: Patient with consistent agitation and Precedex drip started. 12/09: Patient seems less agitated with addition of Precedex yesterday. Patient remains on ventilatory support and is awaiting transfer to [facility]. Hospitalist Physical - Constitutional Vitals: Temp Pulse Resp BP Pulse Ox 100.7 F H 77 19 118/48 96 12/09/20 12:00 12/09/20 15:30 12/09/20 15:30 12/09/20 15:30 12/09/20 15:30 General appearance: Present: no acute distress, well-nourished, obese, other (Intubated on vent) - EENT Eyes: Present: PERRL, EOM intact ENT: dentition normal - Neck Neck: Present: normal ROM - Respiratory Respiratory effort: normal Respiratory: bilateral: diminished - Cardiovascular Rhythm: regular Heart Sounds: Present: S1 & S2. Absent: systolic murmur, diastolic murmur - Extremities Extremities: no ischemia, pulses intact, pulses symmetrical, No edema, normal temperature, normal color, Full ROM Peripheral Pulses: within normal limits - Abdominal General gastrointestinal: soft, non-tender, non-distended, normal bowel sounds - Integumentary Integumentary: Present: warm, dry - Psychiatric Psychiatric: other (sedated) - Neurologic Neurologic: other (sedated) - Allied Health Allied health notes reviewed: nursing, ST, RT HEART Score - HEART Score Troponin: Troponin T < 0.010 ng/mL (0.00-0.029) 11/30/20 14:12 Results - Labs CBC & Chem 7: 12/09/20 05:07 12/09/20 05:07 Labs: Laboratory Last Values WBC 11.4 K/mm3 (4.5-11.0) H 12/09/20 05:07 RBC 3.53 M/mm3 (3.65-5.03) L 12/09/20 05:07 Hgb 9.8 gm/dl (10.1-14.3) L 12/09/20 05:07 Hct 29.2 % (30.3-42.9) L 12/09/20 05:07 MCV 83 fl (79-97) 12/09/20 05:07 MCH 28 pg (28-32) 12/09/20 05:07 MCHC 34 % (30-34) 12/09/20 05:07 RDW 17.8 % (13.2-15.2) H 12/09/20 05:07 Plt Count 216 K/mm3 (140-440) 12/09/20 05:07 Lymph % (Auto) 13.1 % (13.4-35.0) L 12/05/20 11:04 [place] % (Auto) 6.7 % (0.0-7.3) 12/05/20 11:04 Eos % (Auto) 2.2 % (0.0-4.3) 12/05/20 11:04 Baso % (Auto) 0.4 % (0.0-1.8) 12/05/20 11:04 Lymph # (Auto) 1.7 K/mm3 (1.2-5.4) 12/05/20 11:04 [place] # (Auto) 0.9 K/mm3 (0.0-0.8) H 12/05/20 11:04 Eos # (Auto) 0.3 K/mm3 (0.0-0.4) 12/05/20 11:04 Baso # (Auto) 0.1 K/mm3 (0.0-0.1) 12/05/20 11:04 Add Manual Diff Complete 12/04/20 05:40 Total Counted 100 12/04/20 05:40 Seg Neutrophils % 77.6 % (40.0-70.0) H 12/05/20 11:04 Seg Neuts % (Manual) 74.0 % (40.0-70.0) H 12/04/20 05:40 Band Neutrophils % 16.0 % 12/04/20 05:40 Lymphocytes % (Manual) 2.0 % (13.4-35.0) L 12/04/20 05:40 Monocytes % (Manual) 5.0 % (0.0-7.3) 12/04/20 05:40 Eosinophils % (Manual) 2.0 % (0.0-4.3) 12/04/20 05:40 Basophils % (Manual) 1.0 % (0.0-1.8) 12/04/20 05:40 Nucleated RBC % Not Reportable 12/04/20 05:40 Seg Neutrophils # 10.0 K/mm3 (1.8-7.7) H 12/05/20 11:04 Seg Neutrophils # Man 16.1 K/mm3 (1.8-7.7) H 12/04/20 05:40 Band Neutrophils # 3.5 K/mm3 12/04/20 05:40 Lymphocytes # (Manual) 0.4 K/mm3 (1.2-5.4) L 12/04/20 05:40 Abs React Lymphs (Man) 0.0 K/mm3 12/04/20 05:40 Monocytes # (Manual) 1.1 K/mm3 (0.0-0.8) H 12/04/20 05:40 Eosinophils # (Manual) 0.4 K/mm3 (0.0-0.4) 12/04/20 05:40 Basophils # (Manual) 0.2 K/mm3 (0.0-0.1) H 12/04/20 05:40 Metamyelocytes # 0.0 K/mm3 12/04/20 05:40 Myelocytes # 0.0 K/mm3 12/04/20 05:40 Promyelocytes # 0.0 K/mm3 12/04/20 05:40 Blast Cells # 0.0 K/mm3 12/04/20 05:40 WBC Morphology Not Reportable 12/04/20 05:40 Hypersegmented Neuts Not Reportable 12/04/20 05:40 Hyposegmented Neuts Not Reportable 12/04/20 05:40 Hypogranular Neuts Not Reportable 12/04/20 05:40 Smudge Cells Not Reportable 12/04/20 05:40 Toxic Granulation Not Reportable 12/04/20 05:40 Toxic Vacuolation Not Reportable 12/04/20 05:40 Dohle Bodies Not Reportable 12/04/20 05:40 Pelger-Huet Anomaly Not Reportable 12/04/20 05:40 Solomon Rods Not Reportable 12/04/20 05:40 Platelet Estimate Not Reportable 12/04/20 05:40 Clumped Platelets 1+ 12/04/20 05:40 Plt Clumps, EDTA Not Reportable 12/04/20 05:40 Large Platelets Not Reportable 12/04/20 05:40 Giant Platelets Not Reportable 12/04/20 05:40 Platelet Satelliting Not Reportable 12/04/20 05:40 Plt Morphology Comment Not Reportable 12/04/20 05:40 RBC Morphology Normal 12/04/20 05:40 Dimorphic RBCs Not Reportable 12/04/20 05:40 Polychromasia Not Reportable 12/04/20 05:40 Hypochromasia Not Reportable 12/04/20 05:40 Poikilocytosis Not Reportable 12/04/20 05:40 Anisocytosis Not Reportable 12/04/20 05:40 Microcytosis Not Reportable 12/04/20 05:40 Macrocytosis Not Reportable 12/04/20 05:40 Spherocytes Not Reportable 12/04/20 05:40 Pappenheimer Bodies Not Reportable 12/04/20 05:40 Sickle Cells Not Reportable 12/04/20 05:40 Target Cells Not Reportable 12/04/20 05:40 Tear Drop Cells Not Reportable 12/04/20 05:40 Ovalocytes Not Reportable 12/04/20 05:40 Helmet Cells Not Reportable 12/04/20 05:40 Merino-Ola Bodies Not Reportable 12/04/20 05:40 Waldron Rings Not Reportable 12/04/20 05:40 Gardiner Cells Not Reportable 12/04/20 05:40 Bite Cells Not Reportable 12/04/20 05:40 Crenated Cell Not Reportable 12/04/20 05:40 Elliptocytes Not Reportable 12/04/20 05:40 Acanthocytes (Spur) Not Reportable 12/04/20 05:40 Rouleaux Not Reportable 12/04/20 05:40 Hemoglobin C Crystals Not Reportable 12/04/20 05:40 Schistocytes Not Reportable 12/04/20 05:40 Malaria parasites Not Reportable 12/04/20 05:40 Charanjit Bodies Not Reportable 12/04/20 05:40 Hem Pathologist Commnt No 12/04/20 05:40 PT 13.9 Sec. (12.2-14.9) 12/07/20 04:00 INR 1.02 (0.87-1.13) 12/07/20 04:00 D-Dimer 1838.21 ng/mlDDU (0-234) H 12/04/20 10:41 ABG pH 7.398 (7.320-7.450) 12/09/20 04:00 POC ABG pCO2 54.4 mmHg (32.0-48.0) H 12/09/20 04:00 POC ABG pO2 98.7 mmHg (83-108) 12/09/20 04:00 POC ABG HCO3 32.8 12/09/20 04:00 ABG O2 Saturation 97.5 (0-100) 12/09/20 04:00 POC ABG Base Excess 6.8 12/09/20 04:00 ABG Hemoglobin 10.5 (12.0-17.5) L 12/09/20 04:00 ABG Oxyhemoglobin 96.5 (94-98) 12/09/20 04:00 ABG Methemoglobin 0.3 (0.0-1.5) 12/09/20 04:00 ABG Sodium 139.3 mmol/L (136.0-145.0) 12/09/20 04:00 ABG Potassium 3.7 mmol/L (3.40-4.50) 12/09/20 04:00 ABG Chloride 99.0 mmol/L (98-107) 12/09/20 04:00 ABG Glucose 204 mg/dL (65-95) H 12/09/20 04:00 Carboxyhemoglobin 0.7 (0.5-1.5) 12/09/20 04:00 FiO2 % 50.0 12/09/20 04:00 Sodium 142 mmol/L (137-145) 12/09/20 05:07 Potassium 4.1 mmol/L (3.6-5.0) 12/09/20 05:07 Chloride 99.9 mmol/L (98-107) 12/09/20 05:07 Carbon Dioxide 33 mmol/L (22-30) H 12/09/20 05:07 Anion Gap 13 mmol/L 12/09/20 05:07 BUN 38 mg/dL (7-17) H 12/09/20 05:07 Creatinine 0.8 mg/dL (0.6-1.2) 12/09/20 05:07 Estimated GFR > 60 ml/min 12/09/20 05:07 BUN/Creatinine Ratio 48 % 12/09/20 05:07 Glucose 189 mg/dL (65-100) H 12/09/20 05:07 POC Glucose 153 mg/dL (70-105) H 12/09/20 11:57 Calcium 9.8 mg/dL (8.4-10.2) 12/09/20 05:07 Phosphorus 3.80 mg/dL (2.5-4.5) 12/09/20 05:07 Magnesium 2.20 mg/dL (1.7-2.3) 12/09/20 05:07 Ferritin 399.0 ng/mL (10.0-200.0) H 12/04/20 10:41 Total Bilirubin 0.30 mg/dL (0.1-1.2) 12/04/20 05:40 Direct Bilirubin < 0.2 mg/dL (0-0.2) 11/29/20 07:48 Indirect Bilirubin 0.0 mg/dL 11/29/20 07:48 AST 19 units/L (5-40) 12/04/20 05:40 ALT 28 units/L (7-56) 12/04/20 05:40 Alkaline Phosphatase 93 units/L (35-129) 12/04/20 05:40 Lactate Dehydrogenase 386 units/L (91-180) H 12/04/20 10:41 Total Creatine Kinase 1132 units/L (30-135) H 11/30/20 14:12 CK-MB (CK-2) 14.6 ng/mL (0.0-4.0) H 11/30/20 14:12 CK-MB (CK-2) Rel Index 1.2 (0-4) 11/30/20 14:12 Troponin T < 0.010 ng/mL (0.00-0.029) 11/30/20 14:12 C-Reactive Protein 34.30 mg/dL (0.00-1.30) H 12/04/20 10:41 Total Protein 6.2 g/dL (6.3-8.2) L 12/04/20 05:40 Albumin 2.6 g/dL (3.9-5) L 12/04/20 05:40 Albumin/Globulin Ratio 0.7 % 12/04/20 05:40 HCG, Qual Negative (Negative) 11/29/20 07:48 Arterial Blood Glucose 204 mg/dL (65-95) H 12/09/20 04:00 Arterial Blood Ionized Calcium 4.9 mg/dL (4.6-5.3) 12/09/20 04:00 Urine Color Lauren (Yellow) 12/04/20 07:30 Urine Turbidity Turbid (Clear) 12/04/20 07:30 Urine pH 5.0 (5.0-7.0) 12/04/20 07:30 Ur Specific [place] 1.011 (1.003-1.030) 12/04/20 07:30 Urine Protein 100 mg/dl mg/dL (Negative) 12/04/20 07:30 Urine Glucose (UA) Neg mg/dL (Negative) 12/04/20 07:30 Urine Ketones Neg mg/dL (Negative) 12/04/20 07:30 Urine Blood Lg (Negative) 12/04/20 07:30 Urine Nitrite Neg (Negative) 12/04/20 07:30 Urine Bilirubin Neg (Negative) 12/04/20 07:30 Urine Urobilinogen < 2.0 mg/dL (<2.0) 12/04/20 07:30 Ur Leukocyte Esterase Mod (Negative) 12/04/20 07:30 Urine WBC (Auto) > 182.0 /HPF (0.0-6.0) H 12/04/20 07:30 Urine RBC (Auto) 33.0 /HPF (0.0-6.0) 12/04/20 07:30 Urine WBC Clumps 3+ /HPF 12/04/20 07:30 WBC Casts 17 /LPF 12/04/20 07:30 Urine Mucus 3+ /HPF 12/04/20 07:30 Coronavirus (PCR) Positive (Negative) A 12/03/20 08:00 Microbiology: Microbiology 12/04/20 00:54 Peripheral/Venous Blood Culture - Final NO GROWTH AFTER 5 DAYS 12/04/20 00:54 Peripheral/Venous Blood Culture - Final NO GROWTH AFTER 5 DAYS Dash/IV: Voiding Method Indwelling Catheter Active Medications - Current Medications Current Medications: Generic Name Dose Route Start Last Admin Trade Name Freq PRN Reason Stop Dose Admin Acetaminophen 650 mg 12/04/20 00:39 12/05/20 16:29 Acetaminophen 325 Mg Tab PO 650 mg Q6H PRN Administration Fever >101 Albuterol 2.5 mg 11/29/20 15:22 Albuterol 2.5 Mg/3 Ml Nebu IH Q4HRT PRN Shortness Of Breath Albuterol/Ipratropium 1 ampul 12/07/20 20:00 12/09/20 10:30 Ipratropium/Albuterol Sulfate 3 Ml Ampul.Neb IH 1 ampul Q12HRT KRYSTAL Administration Lipase/Protease/Amylase 1 each 11/29/20 15:23 Lipase 10,500/Protease 25,000/Amylase 43,750 (Units) Dr Ariza FEEDTUBE PRN PRN For Clogged Feeding Tube Ascorbic Acid 500 mg 12/04/20 22:00 12/09/20 09:44 Ascorbic Acid 500 Mg Tab PO 500 mg BID KRYSTAL Administration Dextrose 50 ml 12/05/20 10:34 Dextrose 50% In Water (25gm) 50 Ml Syringe IV Q30MIN PRN Hypoglycemia Protocol Famotidine 20 mg 11/30/20 15:00 12/09/20 09:44 Famotidine 20 Mg/2 Ml Inj IV 20 mg BID KRYSTAL Administration Fentanyl 50 mcg 11/29/20 10:22 Fentanyl 100 Mcg/2 Ml Inj IV Q10MIN PRN ANALGESIA Fondaparinux 2.5 mg 11/29/20 22:00 12/08/20 21:53 Fondaparinux 2.5 Mg/0.5 Ml Inj SUB-Q 2.5 mg Q24H KRYSTAL Administration Gabapentin 600 mg 11/30/20 17:00 12/09/20 09:45 Gabapentin 500 Mg/10 Ml Oral Liqd PO 600 mg BID KRYSTAL Administration Hydrochlorothiazide 12.5 mg 12/10/20 10:00 Hydrochlorothiazide 12.5 Mg Cap PO QDAY KRYSTAL Hydrophilic Ointment 1 applic 12/01/20 08:54 Lip Therapy Vaseline TP Q2HR PRN Dry Lips Midazolam HCl 100 mg/ Sodium 100 mls @ 2 mls/hr 11/29/20 12:00 12/09/20 11:02 Chloride IV 5 mg/hr TITR KRYSTAL 5 mls/hr Administration Protocol 2 MG/HR Fentanyl Citrate 2,000 mcg in 100 mls @ 6.45 mls/hr 11/29/20 12:30 12/09/20 11:02 Fentanyl Drip Premix IV 4 mcg/kg/hr TITR KRYSTAL 25.8 mls/hr Administration Protocol 1 MCG/KG/HR Nicardipine HCl 50 mg/ Sodium 250 mls @ 25 mls/hr 12/03/20 08:00 12/04/20 03:26 Chloride IV 0 mg/hr TITR KRYSTAL 0 mls/hr Titration Protocol 5 MG/HR Cefepime HCl 2 gm in 100 mls @ 200 mls/hr 12/06/20 12:00 12/09/20 13:37 Cefepime/Ns 2 Gm/100 Ml IV 12/10/20 20:29 200 mls/hr Q8H KRYSTAL Administration Protocol Dexmedetomidine HCl 400 mcg/ 104 mls @ 6.885 mls/hr 12/08/20 16:00 12/09/20 13:37 Sodium Chloride IV 0.5 mcg/kg/hr TITRATE KRYSTAL 17.212 mls/hr Administration Protocol 0.2 MCG/KG/HR Propofol 1,000 mg in 100 mls @ 3.972 mls/hr 12/08/20 19:00 Diprivan 10 Mg/Ml IV TITR KRYSTAL Protocol 5 MCG/KG/MIN Insulin Human Regular 0 units 12/05/20 12:00 12/09/20 06:02 Insulin Regular, Human 100 Units/1 Ml SUB-Q 1 units Q6HR KRYSTAL Administration Protocol Midazolam HCl 2 mg 11/29/20 10:22 12/08/20 18:35 Midazolam 2 Mg/2 Ml Inj IV 2 mg Q10MIN PRN Administration Sedation Montelukast Sodium 10 mg 11/29/20 22:00 12/08/20 21:53 Montelukast 10 Mg Tab PO 10 mg HS KRYSTAL Administration Multi-Ingred Cream/Lotion/Oil/Oint 1 applic 12/01/20 08:54 Mineral Oil/Petrolatum, White Ophth Oint 3.5 Gm OU Q4HR PRN Dry Eye(s) Senna/Docusate Sodium 1 tab 11/29/20 10:00 12/09/20 09:44 Sennosides/Docusate Sodium 8.6/50 Mg Tab FEEDTUBE 1 tab BID KRYSTAL Administration Simple Syrup 15 ml 11/29/20 15:23 Simple Syrup 15 Ml FEEDTUBE PRN PRN Hypoglycemia Simple Syrup 30 ml 11/29/20 15:23 Simple Syrup 15 Ml FEEDTUBE PRN PRN Hypoglycemia Sodium Bicarbonate 325 mg 11/29/20 15:23 Sodium Bicarbonate 325 Mg Tab FEEDTUBE PRN PRN For Clogged Feeding Tube Zinc Sulfate 220 mg 12/05/20 10:00 12/09/20 09:44 Zinc Sulfate 220 Mg Cap PO 220 mg QDAY KRYSTAL Administration Nutrition/Malnutrition Assess - Dietary Evaluation Nutrition/Malnutrition Findings: Nutrition Notes Start: 11/30/20 09:03 Freq: Status: Active Protocol: Document 12/07/20 10:14 (Rec: 12/07/20 10:17 [id number]) Nutrition Notes Initial or Follow up Reassessment Current Diagnosis Respiratory Failure Other Pertinent Diagnosis allergic reaction, alpha gal, hx HTN Current Diet Vital HP at 65 ml/hr Labs/Tests BUN 29 BG 148 Pertinent Medications Reviewed Height 5 ft 6 in Weight 132.4 kg [place] Body Weight (kg) 59.09 BMI 47.1 Weight Status Morbidly Obese Subjective/Other Information Pt suffered code blue yesterday. RN reports TF at goal and pt tolerating. Percent of energy/protein needs met: 84%/91% Burn Absent Trauma Absent Difficulty In Swallowing Current % PO Negligible Minimum of two criteria No Fluid Accumulation Mild (non-severe) #1 Nutrition Diagnosis Inadequate oral intake Diagnosis Progress(for reassessment Continues documentation) Is patient on ventilator? Yes Is Patient Ambulatory and/or Out of Bed No REE-([facility]-confined to bed) 2421.060 Kcal/Kg value to use for calculation 14 Approximate Energy Requirements Using 1854 kcal/Kg Calculation Used for Recommendations Kcal/kg Additional Notes Protein needs: 2.5 g/kg IBW , 148 g Fluid needs: 1ml/kcal Nutrition Intervention Change Diet Order: continue Nutrition Support: Vital High Protein at 65 ml/hr flush 45 ml q4h Kcal 1,560 Protein (gm) 135 Fluid (mL) 1,304 Goal #1 Meet at least 75% of protein and kcal needs via TF Anticipated Discharge Needs: Unable to determine at this time Follow-Up By: 12/13/20 Additional Comments F/u: TF tolerance <IZABELLA MEEKS - Last Filed: 12/11/20 11:08> History Interval history: I saw and evaluated the patient. Discussed with the nurse practitioner and agree with their findings and plan as documented in this note. Hospitalist Physical - Constitutional Vitals: Temp Pulse Resp BP Pulse Ox 100 F H 72 18 108/50 96 12/11/20 08:00 12/11/20 08:00 12/11/20 07:50 12/11/20 07:32 12/11/20 07:32 HEART Score - HEART Score Troponin: Troponin T < 0.010 ng/mL (0.00-0.029) 11/30/20 14:12 Results - Labs CBC & Chem 7: 12/11/20 06:05 12/11/20 06:05 Labs: Laboratory Last Values WBC 10.5 K/mm3 (4.5-11.0) 12/11/20 06:05 RBC 3.19 M/mm3 (3.65-5.03) L 12/11/20 06:05 Hgb 9.0 gm/dl (10.1-14.3) L 12/11/20 06:05 Hct 27.1 % (30.3-42.9) L 12/11/20 06:05 MCV 85 fl (79-97) 12/11/20 06:05 MCH 28 pg (28-32) 12/11/20 06:05 MCHC 33 % (30-34) 12/11/20 06:05 RDW 18.0 % (13.2-15.2) H 12/11/20 06:05 Plt Count 200 K/mm3 (140-440) 12/11/20 06:05 Lymph % (Auto) 13.1 % (13.4-35.0) L 12/05/20 11:04 [place] % (Auto) 6.7 % (0.0-7.3) 12/05/20 11:04 Eos % (Auto) 2.2 % (0.0-4.3) 12/05/20 11:04 Baso % (Auto) 0.4 % (0.0-1.8) 12/05/20 11:04 Lymph # (Auto) 1.7 K/mm3 (1.2-5.4) 12/05/20 11:04 [place] # (Auto) 0.9 K/mm3 (0.0-0.8) H 12/05/20 11:04 Eos # (Auto) 0.3 K/mm3 (0.0-0.4) 12/05/20 11:04 Baso # (Auto) 0.1 K/mm3 (0.0-0.1) 12/05/20 11:04 Add Manual Diff Complete 12/04/20 05:40 Total Counted 100 12/04/20 05:40 Seg Neutrophils % 77.6 % (40.0-70.0) H 12/05/20 11:04 Seg Neuts % (Manual) 74.0 % (40.0-70.0) H 12/04/20 05:40 Band Neutrophils % 16.0 % 12/04/20 05:40 Lymphocytes % (Manual) 2.0 % (13.4-35.0) L 12/04/20 05:40 Monocytes % (Manual) 5.0 % (0.0-7.3) 12/04/20 05:40 Eosinophils % (Manual) 2.0 % (0.0-4.3) 12/04/20 05:40 Basophils % (Manual) 1.0 % (0.0-1.8) 12/04/20 05:40 Nucleated RBC % Not Reportable 12/04/20 05:40 Seg Neutrophils # 10.0 K/mm3 (1.8-7.7) H 12/05/20 11:04 Seg Neutrophils # Man 16.1 K/mm3 (1.8-7.7) H 12/04/20 05:40 Band Neutrophils # 3.5 K/mm3 12/04/20 05:40 Lymphocytes # (Manual) 0.4 K/mm3 (1.2-5.4) L 12/04/20 05:40 Abs React Lymphs (Man) 0.0 K/mm3 12/04/20 05:40 Monocytes # (Manual) 1.1 K/mm3 (0.0-0.8) H 12/04/20 05:40 Eosinophils # (Manual) 0.4 K/mm3 (0.0-0.4) 12/04/20 05:40 Basophils # (Manual) 0.2 K/mm3 (0.0-0.1) H 12/04/20 05:40 Metamyelocytes # 0.0 K/mm3 12/04/20 05:40 Myelocytes # 0.0 K/mm3 12/04/20 05:40 Promyelocytes # 0.0 K/mm3 12/04/20 05:40 Blast Cells # 0.0 K/mm3 12/04/20 05:40 WBC Morphology Not Reportable 12/04/20 05:40 Hypersegmented Neuts Not Reportable 12/04/20 05:40 Hyposegmented Neuts Not Reportable 12/04/20 05:40 Hypogranular Neuts Not Reportable 12/04/20 05:40 Smudge Cells Not Reportable 12/04/20 05:40 Toxic Granulation Not Reportable 12/04/20 05:40 Toxic Vacuolation Not Reportable 12/04/20 05:40 Dohle Bodies Not Reportable 12/04/20 05:40 Pelger-Huet Anomaly Not Reportable 12/04/20 05:40 Solomon Rods Not Reportable 12/04/20 05:40 Platelet Estimate Not Reportable 12/04/20 05:40 Clumped Platelets 1+ 12/04/20 05:40 Plt Clumps, EDTA Not Reportable 12/04/20 05:40 Large Platelets Not Reportable 12/04/20 05:40 Giant Platelets Not Reportable 12/04/20 05:40 Platelet Satelliting Not Reportable 12/04/20 05:40 Plt Morphology Comment Not Reportable 12/04/20 05:40 RBC Morphology Normal 12/04/20 05:40 Dimorphic RBCs Not Reportable 12/04/20 05:40 Polychromasia Not Reportable 12/04/20 05:40 Hypochromasia Not Reportable 12/04/20 05:40 Poikilocytosis Not Reportable 12/04/20 05:40 Anisocytosis Not Reportable 12/04/20 05:40 Microcytosis Not Reportable 12/04/20 05:40 Macrocytosis Not Reportable 12/04/20 05:40 Spherocytes Not Reportable 12/04/20 05:40 Pappenheimer Bodies Not Reportable 12/04/20 05:40 Sickle Cells Not Reportable 12/04/20 05:40 Target Cells Not Reportable 12/04/20 05:40 Tear Drop Cells Not Reportable 12/04/20 05:40 Ovalocytes Not Reportable 12/04/20 05:40 Helmet Cells Not Reportable 12/04/20 05:40 [place]-Ola Bodies Not Reportable 12/04/20 05:40 [place]ron Rings Not Reportable 12/04/20 05:40 Gardiner Cells Not Reportable 12/04/20 05:40 Bite Cells Not Reportable 12/04/20 05:40 Crenated Cell Not Reportable 12/04/20 05:40 Elliptocytes Not Reportable 12/04/20 05:40 Acanthocytes (Spur) Not Reportable 12/04/20 05:40 Rouleaux Not Reportable 12/04/20 05:40 Hemoglobin C Crystals Not Reportable 12/04/20 05:40 Schistocytes Not Reportable 12/04/20 05:40 Malaria parasites Not Reportable 12/04/20 05:40 Charanjit Bodies Not Reportable 12/04/20 05:40 Hem Pathologist Commnt No 12/04/20 05:40 PT 13.9 Sec. (12.2-14.9) 12/07/20 04:00 INR 1.02 (0.87-1.13) 12/07/20 04:00 D-Dimer 1838.21 ng/mlDDU (0-234) H 12/04/20 10:41 ABG pH 7.517 (7.320-7.450) H 12/11/20 04:00 POC ABG pCO2 35.5 mmHg (32.0-48.0) 12/11/20 04:00 POC ABG pO2 97.6 mmHg (83-108) 12/11/20 04:00 POC ABG HCO3 28.1 12/11/20 04:00 ABG O2 Saturation 97.8 (0-100) 12/11/20 04:00 POC ABG Base Excess 5.1 12/11/20 04:00 ABG Hemoglobin 10.0 (12.0-17.5) L 12/11/20 04:00 ABG Oxyhemoglobin 97.2 (94-98) 12/11/20 04:00 ABG Methemoglobin 0.3 (0.0-1.5) 12/11/20 04:00 ABG Sodium 137.0 mmol/L (136.0-145.0) 12/11/20 04:00 ABG Potassium 3.9 mmol/L (3.40-4.50) 12/11/20 04:00 ABG Chloride 102.0 mmol/L (98-107) 12/11/20 04:00 ABG Glucose 175 mg/dL (65-95) H 12/11/20 04:00 Carboxyhemoglobin 0.3 (0.5-1.5) L 12/11/20 04:00 FiO2 % 45.0 12/11/20 04:00 Sodium 139 mmol/L (137-145) 12/11/20 06:05 Potassium 4.4 mmol/L (3.6-5.0) 12/11/20 06:05 Chloride 101.3 mmol/L (98-107) 12/11/20 06:05 Carbon Dioxide 28 mmol/L (22-30) 12/11/20 06:05 Anion Gap 14 mmol/L 12/11/20 06:05 BUN 33 mg/dL (7-17) H 12/11/20 06:05 Creatinine 0.6 mg/dL (0.6-1.2) 12/11/20 06:05 Estimated GFR > 60 ml/min 12/11/20 06:05 BUN/Creatinine Ratio 55 % 12/11/20 06:05 Glucose 158 mg/dL (65-100) H 12/11/20 06:05 POC Glucose 151 mg/dL (70-105) H 12/11/20 05:18 Calcium 9.2 mg/dL (8.4-10.2) 12/11/20 06:05 Phosphorus 3.60 mg/dL (2.5-4.5) 12/11/20 06:05 Magnesium 2.10 mg/dL (1.7-2.3) 12/11/20 06:05 Ferritin 399.0 ng/mL (10.0-200.0) H 12/04/20 10:41 Total Bilirubin 0.30 mg/dL (0.1-1.2) 12/04/20 05:40 Direct Bilirubin < 0.2 mg/dL (0-0.2) 11/29/20 07:48 Indirect Bilirubin 0.0 mg/dL 11/29/20 07:48 AST 19 units/L (5-40) 12/04/20 05:40 ALT 28 units/L (7-56) 12/04/20 05:40 Alkaline Phosphatase 93 units/L (35-129) 12/04/20 05:40 Lactate Dehydrogenase 386 units/L (91-180) H 12/04/20 10:41 Total Creatine Kinase 1132 units/L (30-135) H 11/30/20 14:12 CK-MB (CK-2) 14.6 ng/mL (0.0-4.0) H 11/30/20 14:12 CK-MB (CK-2) Rel Index 1.2 (0-4) 11/30/20 14:12 Troponin T < 0.010 ng/mL (0.00-0.029) 11/30/20 14:12 C-Reactive Protein 34.30 mg/dL (0.00-1.30) H 12/04/20 10:41 Total Protein 6.2 g/dL (6.3-8.2) L 12/04/20 05:40 Albumin 2.6 g/dL (3.9-5) L 12/04/20 05:40 Albumin/Globulin Ratio 0.7 % 12/04/20 05:40 HCG, Qual Negative (Negative) 11/29/20 07:48 Arterial Blood Glucose 175 mg/dL (65-95) H 12/11/20 04:00 Arterial Blood Ionized Calcium 4.7 mg/dL (4.6-5.3) 12/11/20 04:00 Urine Color Lauren (Yellow) 12/04/20 07:30 Urine Turbidity Turbid (Clear) 12/04/20 07:30 Urine pH 5.0 (5.0-7.0) 12/04/20 07:30 Ur Specific [place] 1.011 (1.003-1.030) 12/04/20 07:30 Urine Protein 100 mg/dl mg/dL (Negative) 12/04/20 07:30 Urine Glucose (UA) Neg mg/dL (Negative) 12/04/20 07:30 Urine Ketones Neg mg/dL (Negative) 12/04/20 07:30 Urine Blood Lg (Negative) 12/04/20 07:30 Urine Nitrite Neg (Negative) 12/04/20 07:30 Urine Bilirubin Neg (Negative) 12/04/20 07:30 Urine Urobilinogen < 2.0 mg/dL (<2.0) 12/04/20 07:30 Ur Leukocyte Esterase Mod (Negative) 12/04/20 07:30 Urine WBC (Auto) > 182.0 /HPF (0.0-6.0) H 12/04/20 07:30 Urine RBC (Auto) 33.0 /HPF (0.0-6.0) 12/04/20 07:30 Urine WBC Clumps 3+ /HPF 12/04/20 07:30 WBC Casts 17 /LPF 12/04/20 07:30 Urine Mucus 3+ /HPF 12/04/20 07:30 Coronavirus (PCR) Positive (Negative) A 12/03/20 08:00 Dash/IV: Voiding Method Indwelling Catheter Active Medications - Current Medications Current Medications: Generic Name Dose Route Start Last Admin Trade Name Freq PRN Reason Stop Dose Admin Acetaminophen 650 mg 12/04/20 00:39 12/10/20 05:24 Acetaminophen 325 Mg Tab PO 650 mg Q6H PRN Administration Fever >101 Albuterol 2.5 mg 11/29/20 15:22 Albuterol 2.5 Mg/3 Ml Nebu IH Q4HRT PRN Shortness Of Breath Albuterol/Ipratropium 1 ampul 12/07/20 20:00 12/11/20 07:47 Ipratropium/Albuterol Sulfate 3 Ml Ampul.Neb IH 1 ampul Q12HRT KRYSTAL Administration Lipase/Protease/Amylase 1 each 11/29/20 15:23 Lipase 10,500/Protease 25,000/Amylase 43,750 (Units) Dr Ariza FEEDTUBE PRN PRN For Clogged Feeding Tube Ascorbic Acid 500 mg 12/04/20 22:00 12/11/20 09:40 Ascorbic Acid 500 Mg Tab PO 500 mg BID KRYSTAL Administration Dextrose 50 ml 12/05/20 10:34 Dextrose 50% In Water (25gm) 50 Ml Syringe IV Q30MIN PRN Hypoglycemia Protocol Famotidine 20 mg 11/30/20 15:00 12/11/20 09:41 Famotidine 20 Mg/2 Ml Inj IV 20 mg BID KRYSTAL Administration Fentanyl 50 mcg 11/29/20 10:22 Fentanyl 100 Mcg/2 Ml Inj IV Q10MIN PRN ANALGESIA Fondaparinux 2.5 mg 11/29/20 22:00 12/10/20 23:04 Fondaparinux 2.5 Mg/0.5 Ml Inj SUB-Q 2.5 mg Q24H KRYSTAL Administration Gabapentin 600 mg 11/30/20 17:00 12/11/20 09:58 Gabapentin 500 Mg/10 Ml Oral Liqd PO 600 mg BID KRYSTAL Administration Hydrochlorothiazide 12.5 mg 12/10/20 10:00 12/11/20 09:40 Hydrochlorothiazide 12.5 Mg Cap PO 12.5 mg QDAY KRYSTAL Administration Hydrophilic Ointment 1 applic 12/01/20 08:54 Lip Therapy Vaseline TP Q2HR PRN Dry Lips Midazolam HCl 100 mg/ Sodium 100 mls @ 2 mls/hr 11/29/20 12:00 12/10/20 20:22 Chloride IV 5 mg/hr TITR KRYSTAL 5 mls/hr Administration Protocol 2 MG/HR Fentanyl Citrate 2,000 mcg in 100 mls @ 6.45 mls/hr 11/29/20 12:30 12/11/20 07:15 Fentanyl Drip Premix IV 4 mcg/kg/hr TITR KRYSTAL 25.8 mls/hr Administration Protocol 1 MCG/KG/HR Dexmedetomidine HCl 400 mcg/ 104 mls @ 6.885 mls/hr 12/08/20 16:00 12/11/20 07:15 Sodium Chloride IV 0.5 mcg/kg/hr TITRATE KRYSTAL 17.212 mls/hr Administration Protocol 0.2 MCG/KG/HR Propofol 1,000 mg in 100 mls @ 3.972 mls/hr 12/08/20 19:00 Diprivan 10 Mg/Ml IV TITR KRYSTAL Protocol 5 MCG/KG/MIN Vancomycin HCl 2,000 mg/ 540 mls @ 250 mls/hr 12/11/20 12:00 Sodium Chloride IV 12/11/20 14:09 ONCE ONE Vancomycin HCl 1,500 mg/ 530 mls @ 333.333 mls/hr 12/11/20 20:00 Sodium Chloride IV Q8H [facility] Insulin Human Regular 0 units 12/05/20 12:00 12/11/20 07:16 Insulin Regular, Human 100 Units/1 Ml SUB-Q 1 units Q6HR [facility] Administration Protocol Midazolam HCl 2 mg 11/29/20 10:22 12/08/20 18:35 Midazolam 2 Mg/2 Ml Inj IV 2 mg Q10MIN PRN Administration Sedation Montelukast Sodium 10 mg 11/29/20 22:00 12/10/20 23:05 Montelukast 10 Mg Tab PO 10 mg HS KRYSTAL Administration Multi-Ingred Cream/Lotion/Oil/Oint 1 applic 12/01/20 08:54 Mineral Oil/Petrolatum, White Ophth Oint 3.5 Gm OU Q4HR PRN Dry Eye(s) Senna/Docusate Sodium 1 tab 11/29/20 10:00 12/11/20 09:40 Sennosides/Docusate Sodium 8.6/50 Mg Tab FEEDTUBE 1 tab BID KRYSTAL Administration Simple Syrup 15 ml 11/29/20 15:23 Simple Syrup 15 Ml FEEDTUBE PRN PRN Hypoglycemia Simple Syrup 30 ml 11/29/20 15:23 Simple Syrup 15 Ml FEEDTUBE PRN PRN Hypoglycemia Sodium Bicarbonate 325 mg 11/29/20 15:23 Sodium Bicarbonate 325 Mg Tab FEEDTUBE PRN PRN For Clogged Feeding Tube Zinc Sulfate 220 mg 12/05/20 10:00 12/11/20 09:40 Zinc Sulfate 220 Mg Cap PO 220 mg QDAY KRYSTAL Administration Nutrition/Malnutrition Assess - Dietary Evaluation Nutrition/Malnutrition Findings: Nutrition Notes Start: 11/30/20 09:03 Freq: Status: Active Protocol: Document 12/07/20 10:14 VICTORIA (Rec: 12/07/20 10:17 VICTORIA [id number]) Nutrition Notes Initial or Follow up Reassessment Current Diagnosis Respiratory Failure Other Pertinent Diagnosis allergic reaction, alpha gal, hx HTN Current Diet Vital HP at 65 ml/hr Labs/Tests BUN 29 BG 148 Pertinent Medications Reviewed Height 5 ft 6 in Weight 132.4 kg [place] Body Weight (kg) 59.09 BMI 47.1 Weight Status Morbidly Obese Subjective/Other Information Pt suffered code blue yesterday. RN reports TF at goal and pt tolerating. Percent of energy/protein needs met: 84%/91% Burn Absent Trauma Absent Difficulty In Swallowing Current % PO Negligible Minimum of two criteria No Fluid Accumulation Mild (non-severe) #1 Nutrition Diagnosis Inadequate oral intake Diagnosis Progress(for reassessment Continues documentation) Is patient on ventilator? Yes Is Patient Ambulatory and/or Out of Bed No REE-([facility]-confined to bed) 2421.060 Kcal/Kg value to use for calculation 14 Approximate Energy Requirements Using 1854 kcal/Kg Calculation Used for Recommendations Kcal/kg Additional Notes Protein needs: 2.5 g/kg IBW , 148 g Fluid needs: 1ml/kcal Nutrition Intervention Change Diet Order: continue Nutrition Support: Vital High Protein at 65 ml/hr flush 45 ml q4h Kcal 1,560 Protein (gm) 135 Fluid (mL) 1,304 Goal #1 Meet at least 75% of protein and kcal needs via TF Anticipated Discharge Needs: Unable to determine at this time Follow-Up By: 12/13/20 Additional Comments F/u: TF tolerance
[2020-12-09] MEDS: FONDAPARINUX 2.5 MG/0.5 ML INJ SUB-Q SCH (22:19)
[2020-12-09] MEDS: MONTELUKAST 10 MG TAB PO SCH (22:20)
[2020-12-10] MEDS: fentaNYL DRIP Premix 2,000 MCG/100 ML BAG IV SCH ×6 (02:07→23:03)
[2020-12-10] MEDS: INSULIN REGULAR, HUMAN 100 UNITS/1 ML SUB-Q SCH ×3 (02:08→14:27)
[2020-12-10] MEDS: CEFEPIME/NS 2 GM/100 ML 2 GM/100 ML BAG IV SCH ×3 (02:34→20:26)
[2020-12-10] MEDS: ACETAMINOPHEN 325 MG TAB PO PRN (05:24)
[2020-12-10 05:27] LABS: Hematocrit 29.3 % (30.3-42.9); Hemoglobin 9.4 gm/dl (10.1-14.3); Mean Corpuscular HGB Conc 32 % (30-34); Mean Corpuscular Volume 86 fl (79-97); Platelet Count 199 K/mm3 (140-440); Red Blood Count 3.42 M/mm3 (3.65-5.03); Red Cell Distribution Width 17.9 % (13.2-15.2)
[2020-12-10] MEDS: MIDAZOLAM 100 MG in SODIUM CHLORIDE 0.9% 80 ML IV SCH ×2 (05:36→20:22)
[2020-12-10 05:37] LABS: Blood Urea Nitrogen 34 mg/dL (7-17); Calcium 9.3 mg/dL (8.4-10.2); Hemolysis Index 14
[2020-12-10 05:47] LABS: BUN/Creatinine Ratio 49
--- NOTE | 2020-12-10 07:05 | XRay Report ---
CHEST 1 VIEW 12/10/2020 5:40 AM INDICATION / CLINICAL INFORMATION: hypoxia. COMPARISON: 12/09/2020 FINDINGS: SUPPORT DEVICES: Stable, satisfactory device positioning. HEART / MEDIASTINUM: No significant abnormality. LUNGS / PLEURA: Mild increased interstitial prominence in bilateral lungs persist No pneumothorax. ADDITIONAL FINDINGS: No significant additional findings. IMPRESSION: No significant change Signer Name: Odell Carolina MD Signed: 12/10/2020 7:01 AM Workstation Name: [id number]
[2020-12-10] MEDS: ZINC SULFATE 220 MG CAP PO SCH (10:50)
[2020-12-10] MEDS: hydroCHLOROthiazide 12.5 MG CAP PO SCH (10:50)
[2020-12-10] MEDS: GABAPENTIN 500 MG/10 ML ORAL LIQD PO SCH ×2 (10:50→23:05)
[2020-12-10] MEDS: ASCORBIC ACID 500 MG TAB PO SCH ×2 (10:50→23:04)
[2020-12-10] MEDS: FAMOTIDINE 20 MG/2 ML INJ IV SCH ×2 (10:51→23:04)
[2020-12-10] MEDS: SENNOSIDES/DOCUSATE SODIUM 8.6/50 MG TAB FEEDTUBE SCH ×2 (10:52→23:04)
--- NOTE | 2020-12-10 10:55 | Progress Note ---
Assessment and Plan Acute hypoxemic respiratory failure Angioedema Morbid obesity Mild leukocytosis- resolved Hypertension. h/o alpha-gal syndrome s/p Cardiopulmonary arrest with ROSC - awaiting [place] transfer- will have discussions with the tomorrow. Apparently he would not to have an elective trach if at all possible. Negative fluid balance and trial of PSV tomorrow - continue to wean supplemental oxygen for target O2 sats > 92% - continue Daily SAT and SBT assessment as tolerated - VAP bundle addressed - continue lung protective strategies - continue bronchodilators with pulmonary hygiene per RT - wean per pulmonary driven protocols otherwise - continue accuchecks with glycemic control per SSI (While critically ill target blood glucose of 140-180 mg/dL; avoid hypoglycemia) - sedation prn for target RASS -1 to -2, patient has dislodged ETT in the past - avoid nephrotoxins, renally dose all medications - continue to avoid benzodiazepines, reduce the possibility of delirium - prn analgesia per CPOT score - Maintenance of sleep-wake cycle, avoid delirium - continue enteral nutritional support at goal rate as tolerated -Stress ulcer and VTE prophylaxis - PT/OT/ROM exercises - continue mobility protocol, off loading, frequent turning per facility protocol for pressure ulcer prevention - Monitor hemodynamics closely - continue other care per attending / other consultants COVID SPECIFIC INTERVENTIONS - Continue contact and airborne isolation - Remdesivir not indicated as per ID/Pulmonary developed protocols - No steroids secondary to stage of illness and Solumedrol allergy - Anticoagulation per system Protocol based on d-dimer and clinical considerations (VTE prophylaxis) CONDITION: CRITICAL PROGNOSIS: GUARDED CODE STATUS: FULL CODE The high probability of a clinically significant, sudden or life-threatening deterioration of the [respiratory, cardiovascular & immunologic] system(s) required my full and direct attention, intervention and personal management. The aggregate critical care time was [34] minutes without overlap. 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 Patient is seen today for: Acute hypoxemic respiratory failure; Angioedema; Morbid obesity; leukocytosis; HTN; H/O alpha-gal syndrome Seen and examined at bedside; 24hour events reviewed; nursing and respiratory care staff consulted; no adverse overnight events reported to me; resting in bed; remains on MVS; on going fevers, less agitation with addition of Precedex; awaiting transfer to [place]. No vomiting, no diarrhea ACVC 20/450/+8/45% ABG 7.493/44/71/33 Per hospitlaist discussions with the , he wants a trial of extubation and requests that he be there for it. Objective Vital Signs - 12hr 12/09/20 12/09/20 12/10/20 23:00 23:30 00:00 Temperature Pulse Rate 63 63 65 Pulse Rate [ 89 From Monitor] Respiratory 20 20 20 Rate Blood Pressure 111/46 104/38 113/45 O2 Sat by Pulse 98 Oximetry 12/10/20 12/10/20 12/10/20 00:30 01:00 01:30 Temperature Pulse Rate 66 81 69 Pulse Rate [ From Monitor] Respiratory 20 20 20 Rate Blood Pressure 118/51 123/65 116/54 O2 Sat by Pulse Oximetry 12/10/20 12/10/20 12/10/20 02:00 02:30 03:00 Temperature Pulse Rate 67 64 63 Pulse Rate [ From Monitor] Respiratory 20 20 20 Rate Blood Pressure 115/52 106/45 113/47 O2 Sat by Pulse Oximetry 12/10/20 12/10/20 12/10/20 03:22 03:30 04:00 Temperature 101.6 F H Pulse Rate 62 65 63 Pulse Rate [ 89 From Monitor] Respiratory 20 20 Rate Blood Pressure 106/46 115/55 112/51 O2 Sat by Pulse 95 95 96 Oximetry 12/10/20 12/10/20 12/10/20 04:30 05:01 05:30 Temperature Pulse Rate 62 63 62 Pulse Rate [ From Monitor] Respiratory 20 20 20 Rate Blood Pressure 107/49 109/47 103/48 O2 Sat by Pulse 97 97 96 Oximetry 12/10/20 12/10/20 12/10/20 06:00 06:30 07:00 Temperature Pulse Rate 62 63 67 Pulse Rate [ From Monitor] Respiratory 20 20 18 Rate Blood Pressure 102/46 106/46 86/54 O2 Sat by Pulse 96 97 96 Oximetry 12/10/20 08:00 Temperature 98.1 F Pulse Rate Pulse Rate [ From Monitor] Respiratory Rate Blood Pressure O2 Sat by Pulse Oximetry Constitutional: no acute distress (sedated), other (young obese female without increased respiratory effort at rest on MVS) Eyes: non-icteric ENT: oropharynx moist, other (ETT 22 cm JOSELYN, size 6 ETT) Neck: supple, no lymphadenopathy, no JVD, other (large circumference; + healed trach scar) Effort: mildly labored Ascultation: Bilateral: diminished breath sounds, rales (coarse ), rhonchi Percussion: Bilateral: not dull Cardiovascular: regular rate and rhythm, other (S1,S2) Gastrointestinal: normoactive bowel sounds, soft, non-tender, non-distended Integumentary: normal Extremities: no cyanosis, no edema, pink and warm, pulses normal Neurologic: non-focal exam, pupils equal and round, CN II-XII normal, motor strength normal and Psychiatric: other (sedated but rousable) CBC and BMP: 12/11/20 06:05 12/11/20 06:05 ABG, PT/INR, D-dimer: ABG ABG pH 7.493 (7.320-7.450) H 12/10/20 03:16 POC ABG pCO2 44.0 mmHg (32.0-48.0) 12/10/20 03:16 POC ABG pO2 71.4 mmHg (83-108) L 12/10/20 03:16 POC ABG HCO3 33.0 12/10/20 03:16 ABG O2 Saturation 94.9 (0-100) 12/10/20 03:16 PT/INR, D-dimer PT 13.9 Sec. (12.2-14.9) 12/07/20 04:00 INR 1.02 (0.87-1.13) 12/07/20 04:00 D-Dimer 1838.21 ng/mlDDU (0-234) H 12/04/20 10:41 Abnormal lab findings: Abnormal Labs 11/29/20 11/29/20 11/29/20 07:48 07:48 07:48 WBC 11.3 H RBC Hgb Hct RDW 18.0 H Lymph % (Auto) [place] # (Auto) Seg Neutrophils % Seg Neuts % (Manual) Lymphocytes % (Manual) Seg Neutrophils # 7.9 H Seg Neutrophils # Man Lymphocytes # (Manual) Monocytes # (Manual) Basophils # (Manual) D-Dimer ABG pH POC ABG pCO2 POC ABG pO2 ABG Hemoglobin ABG Oxyhemoglobin ABG Sodium ABG Potassium ABG Chloride ABG Glucose Carboxyhemoglobin Sodium 135 L Chloride Carbon Dioxide BUN Creatinine Glucose 204 H POC Glucose Calcium Ferritin Lactate Dehydrogenase Total Creatine Kinase CK-MB (CK-2) C-Reactive Protein Total Protein Albumin 3.7 L Arterial Blood Glucose Urine WBC (Auto) Coronavirus (PCR) 11/29/20 11/30/20 11/30/20 11:37 04:27 11:22 WBC RBC Hgb Hct RDW Lymph % (Auto) [place] # (Auto) Seg Neutrophils % Seg Neuts % (Manual) Lymphocytes % (Manual) Seg Neutrophils # Seg Neutrophils # Man Lymphocytes # (Manual) Monocytes # (Manual) Basophils # (Manual) D-Dimer ABG pH 7.318 L POC ABG pCO2 POC ABG pO2 76.1 L 196.4 H ABG Hemoglobin 11.96 L ABG Oxyhemoglobin 92.4 L 98.5 H ABG Sodium 133.7 L ABG Potassium 5.0 H ABG Chloride ABG Glucose 171 H Carboxyhemoglobin 2.5 H Sodium Chloride Carbon Dioxide BUN Creatinine Glucose POC Glucose 157 H Calcium Ferritin Lactate Dehydrogenase Total Creatine Kinase CK-MB (CK-2) C-Reactive Protein Total Protein Albumin Arterial Blood Glucose 171 H Urine WBC (Auto) Coronavirus (PCR) 11/30/20 11/30/20 11/30/20 14:12 17:19 23:42 WBC RBC Hgb Hct RDW Lymph % (Auto) [place] # (Auto) Seg Neutrophils % Seg Neuts % (Manual) Lymphocytes % (Manual) Seg Neutrophils # Seg Neutrophils # Man Lymphocytes # (Manual) Monocytes # (Manual) Basophils # (Manual) D-Dimer ABG pH POC ABG pCO2 POC ABG pO2 ABG Hemoglobin ABG Oxyhemoglobin ABG Sodium ABG Potassium ABG Chloride ABG Glucose Carboxyhemoglobin Sodium Chloride Carbon Dioxide BUN Creatinine Glucose POC Glucose 135 H 121 H Calcium Ferritin Lactate Dehydrogenase Total Creatine Kinase 1132 H CK-MB (CK-2) 14.6 H C-Reactive Protein Total Protein Albumin Arterial Blood Glucose Urine WBC (Auto) Coronavirus (PCR) 12/01/20 12/01/20 12/01/20 03:30 04:21 06:16 WBC RBC Hgb Hct RDW Lymph % (Auto) [place] # (Auto) Seg Neutrophils % Seg Neuts % (Manual) Lymphocytes % (Manual) Seg Neutrophils # Seg Neutrophils # Man Lymphocytes # (Manual) Monocytes # (Manual) Basophils # (Manual) D-Dimer ABG pH POC ABG pCO2 POC ABG pO2 37.6 L 76.2 L ABG Hemoglobin 10.4 L 10.8 L ABG Oxyhemoglobin 76.4 L 93.7 L ABG Sodium 112.8 L 110.9 L ABG Potassium ABG Chloride ABG Glucose 103 H 107 H Carboxyhemoglobin Sodium Chloride Carbon Dioxide BUN Creatinine Glucose POC Glucose 129 H Calcium Ferritin Lactate Dehydrogenase Total Creatine Kinase CK-MB (CK-2) C-Reactive Protein Total Protein Albumin Arterial Blood Glucose 103 H 107 H Urine WBC (Auto) Coronavirus (PCR) 12/02/20 12/02/20 12/02/20 04:00 12:02 17:10 WBC RBC Hgb Hct RDW Lymph % (Auto) [place] # (Auto) Seg Neutrophils % Seg Neuts % (Manual) Lymphocytes % (Manual) Seg Neutrophils # Seg Neutrophils # Man Lymphocytes # (Manual) Monocytes # (Manual) Basophils # (Manual) D-Dimer ABG pH 7.306 L POC ABG pCO2 58.0 H POC ABG pO2 58.5 L ABG Hemoglobin 11.4 L ABG Oxyhemoglobin 86.9 L ABG Sodium 124.7 L ABG Potassium ABG Chloride ABG Glucose 118 H Carboxyhemoglobin Sodium Chloride Carbon Dioxide BUN Creatinine Glucose POC Glucose 143 H 134 H Calcium Ferritin Lactate Dehydrogenase Total Creatine Kinase CK-MB (CK-2) C-Reactive Protein Total Protein Albumin Arterial Blood Glucose 118 H Urine WBC (Auto) Coronavirus (PCR) 12/03/20 12/03/20 12/04/20 05:10 08:00 03:32 WBC RBC Hgb Hct RDW Lymph % (Auto) [place] # (Auto) Seg Neutrophils % Seg Neuts % (Manual) Lymphocytes % (Manual) Seg Neutrophils # Seg Neutrophils # Man Lymphocytes # (Manual) Monocytes # (Manual) Basophils # (Manual) D-Dimer ABG pH 7.272 L POC ABG pCO2 60.1 H 54.6 H POC ABG pO2 82.8 L 78.6 L ABG Hemoglobin 11.4 L ABG Oxyhemoglobin ABG Sodium 132.2 L 130.2 L ABG Potassium ABG Chloride ABG Glucose 166 H 164 H Carboxyhemoglobin 0.4 L Sodium Chloride Carbon Dioxide BUN Creatinine Glucose POC Glucose Calcium Ferritin Lactate Dehydrogenase Total Creatine Kinase CK-MB (CK-2) C-Reactive Protein Total Protein Albumin Arterial Blood Glucose 166 H 164 H Urine WBC (Auto) Coronavirus (PCR) Positive A 12/04/20 12/04/20 12/04/20 05:40 05:40 07:30 WBC 21.7 H RBC Hgb Hct RDW 18.2 H Lymph % (Auto) [place] # (Auto) Seg Neutrophils % Seg Neuts % (Manual) 74.0 H Lymphocytes % (Manual) 2.0 L Seg Neutrophils # Seg Neutrophils # Man 16.1 H Lymphocytes # (Manual) 0.4 L Monocytes # (Manual) 1.1 H Basophils # (Manual) 0.2 H D-Dimer ABG pH POC ABG pCO2 POC ABG pO2 ABG Hemoglobin ABG Oxyhemoglobin ABG Sodium ABG Potassium ABG Chloride ABG Glucose Carboxyhemoglobin Sodium Chloride Carbon Dioxide BUN 26 H Creatinine 1.7 H D Glucose 157 H POC Glucose Calcium Ferritin Lactate Dehydrogenase Total Creatine Kinase CK-MB (CK-2) C-Reactive Protein Total Protein 6.2 L Albumin 2.6 L Arterial Blood Glucose Urine WBC (Auto) > 182.0 H Coronavirus (PCR) 12/04/20 12/04/20 12/04/20 10:41 10:41 10:41 WBC RBC Hgb Hct RDW Lymph % (Auto) [place] # (Auto) Seg Neutrophils % Seg Neuts % (Manual) Lymphocytes % (Manual) Seg Neutrophils # Seg Neutrophils # Man Lymphocytes # (Manual) Monocytes # (Manual) Basophils # (Manual) D-Dimer 1838.21 H ABG pH POC ABG pCO2 POC ABG pO2 ABG Hemoglobin ABG Oxyhemoglobin ABG Sodium ABG Potassium ABG Chloride ABG Glucose Carboxyhemoglobin Sodium Chloride Carbon Dioxide BUN Creatinine Glucose POC Glucose Calcium Ferritin 399.0 H Lactate Dehydrogenase 386 H Total Creatine Kinase CK-MB (CK-2) C-Reactive Protein 34.30 H Total Protein Albumin Arterial Blood Glucose Urine WBC (Auto) Coronavirus (PCR) 12/04/20 12/05/2021 23:58 00:10 00:45 WBC RBC Hgb Hct RDW Lymph % (Auto) [place] # (Auto) Seg Neutrophils % Seg Neuts % (Manual) Lymphocytes % (Manual) Seg Neutrophils # Seg Neutrophils # Man Lymphocytes # (Manual) Monocytes # (Manual) Basophils # (Manual) D-Dimer ABG pH POC ABG pCO2 55.5 H POC ABG pO2 ABG Hemoglobin 11.2 L ABG Oxyhemoglobin ABG Sodium 135.0 L ABG Potassium 4.6 H ABG Chloride ABG Glucose 165 H Carboxyhemoglobin Sodium Chloride Carbon Dioxide BUN Creatinine Glucose POC Glucose 134 H 146 H Calcium Ferritin Lactate Dehydrogenase Total Creatine Kinase CK-MB (CK-2) C-Reactive Protein Total Protein Albumin Arterial Blood Glucose 165 H Urine WBC (Auto) Coronavirus (PCR) 12/05/20 12/05/20 12/05/20 11:04 11:04 11:52 WBC 13.0 H RBC 3.61 L Hgb Hct RDW 18.8 H Lymph % (Auto) 13.1 L [place] # (Auto) 0.9 H Seg Neutrophils % 77.6 H Seg Neuts % (Manual) Lymphocytes % (Manual) Seg Neutrophils # 10.0 H Seg Neutrophils # Man Lymphocytes # (Manual) Monocytes # (Manual) Basophils # (Manual) D-Dimer ABG pH POC ABG pCO2 POC ABG pO2 ABG Hemoglobin ABG Oxyhemoglobin ABG Sodium ABG Potassium ABG Chloride ABG Glucose Carboxyhemoglobin Sodium Chloride Carbon Dioxide 31 H BUN 21 H Creatinine Glucose 152 H POC Glucose 121 H Calcium Ferritin Lactate Dehydrogenase Total Creatine Kinase CK-MB (CK-2) C-Reactive Protein Total Protein Albumin Arterial Blood Glucose Urine WBC (Auto) Coronavirus (PCR) 12/05/20 12/05/20 12/06/20 17:31 23:37 04:00 WBC RBC Hgb Hct RDW Lymph % (Auto) [place] # (Auto) Seg Neutrophils % Seg Neuts % (Manual) Lymphocytes % (Manual) Seg Neutrophils # Seg Neutrophils # Man Lymphocytes # (Manual) Monocytes # (Manual) Basophils # (Manual) D-Dimer ABG pH 7.471 H POC ABG pCO2 POC ABG pO2 75.2 L ABG Hemoglobin 10.4 L ABG Oxyhemoglobin ABG Sodium 133.7 L ABG Potassium ABG Chloride ABG Glucose 120 H Carboxyhemoglobin Sodium Chloride Carbon Dioxide BUN Creatinine Glucose POC Glucose 148 H 133 H Calcium Ferritin Lactate Dehydrogenase Total Creatine Kinase CK-MB (CK-2) C-Reactive Protein Total Protein Albumin Arterial Blood Glucose 120 H Urine WBC (Auto) Coronavirus (PCR) 12/06/20 12/06/20 12/06/20 05:07 05:07 05:09 WBC RBC 3.37 L Hgb 9.4 L Hct 28.4 L RDW 18.3 H Lymph % (Auto) [place] # (Auto) Seg Neutrophils % Seg Neuts % (Manual) Lymphocytes % (Manual) Seg Neutrophils # Seg Neutrophils # Man Lymphocytes # (Manual) Monocytes # (Manual) Basophils # (Manual) D-Dimer ABG pH POC ABG pCO2 POC ABG pO2 ABG Hemoglobin ABG Oxyhemoglobin ABG Sodium ABG Potassium ABG Chloride ABG Glucose Carboxyhemoglobin Sodium Chloride Carbon Dioxide 33 H BUN 25 H Creatinine Glucose 131 H POC Glucose 122 H Calcium Ferritin Lactate Dehydrogenase Total Creatine Kinase CK-MB (CK-2) C-Reactive Protein Total Protein Albumin Arterial Blood Glucose Urine WBC (Auto) Coronavirus (PCR) 12/06/20 12/06/20 12/06/20 11:59 16:17 17:30 WBC RBC Hgb Hct RDW Lymph % (Auto) [place] # (Auto) Seg Neutrophils % Seg Neuts % (Manual) Lymphocytes % (Manual) Seg Neutrophils # Seg Neutrophils # Man Lymphocytes # (Manual) Monocytes # (Manual) Basophils # (Manual) D-Dimer ABG pH POC ABG pCO2 61.8 H POC ABG pO2 180.5 H ABG Hemoglobin ABG Oxyhemoglobin ABG Sodium ABG Potassium ABG Chloride ABG Glucose 142 H Carboxyhemoglobin Sodium Chloride Carbon Dioxide BUN Creatinine Glucose POC Glucose 120 H 114 H Calcium Ferritin Lactate Dehydrogenase Total Creatine Kinase CK-MB (CK-2) C-Reactive Protein Total Protein Albumin Arterial Blood Glucose 142 H Urine WBC (Auto) Coronavirus (PCR) 12/06/20 12/07/20 12/07/20 23:09 04:00 04:00 WBC RBC 3.47 L Hgb 9.5 L Hct 29.5 L RDW 18.7 H Lymph % (Auto) [place] # (Auto) Seg Neutrophils % Seg Neuts % (Manual) Lymphocytes % (Manual) Seg Neutrophils # Seg Neutrophils # Man Lymphocytes # (Manual) Monocytes # (Manual) Basophils # (Manual) D-Dimer ABG pH POC ABG pCO2 55.9 H POC ABG pO2 ABG Hemoglobin 11.6 L ABG Oxyhemoglobin ABG Sodium 135.2 L ABG Potassium 4.7 H ABG Chloride ABG Glucose 141 H Carboxyhemoglobin Sodium Chloride Carbon Dioxide BUN Creatinine Glucose POC Glucose 112 H Calcium Ferritin Lactate Dehydrogenase Total Creatine Kinase CK-MB (CK-2) C-Reactive Protein Total Protein Albumin Arterial Blood Glucose 141 H Urine WBC (Auto) Coronavirus (PCR) 12/07/20 12/07/20 12/07/20 05:00 05:28 12:20 WBC RBC Hgb Hct RDW Lymph % (Auto) [place] # (Auto) Seg Neutrophils % Seg Neuts % (Manual) Lymphocytes % (Manual) Seg Neutrophils # Seg Neutrophils # Man Lymphocytes # (Manual) Monocytes # (Manual) Basophils # (Manual) D-Dimer ABG pH POC ABG pCO2 POC ABG pO2 ABG Hemoglobin ABG Oxyhemoglobin ABG Sodium ABG Potassium ABG Chloride ABG Glucose Carboxyhemoglobin Sodium Chloride 96.6 L Carbon Dioxide 35 H BUN 29 H Creatinine Glucose 148 H POC Glucose 139 H 130 H Calcium Ferritin Lactate Dehydrogenase Total Creatine Kinase CK-MB (CK-2) C-Reactive Protein Total Protein Albumin Arterial Blood Glucose Urine WBC (Auto) Coronavirus (PCR) 12/07/20 12/07/20 12/08/20 16:54 23:15 04:00 WBC RBC Hgb Hct RDW Lymph % (Auto) [place] # (Auto) Seg Neutrophils % Seg Neuts % (Manual) Lymphocytes % (Manual) Seg Neutrophils # Seg Neutrophils # Man Lymphocytes # (Manual) Monocytes # (Manual) Basophils # (Manual) D-Dimer ABG pH POC ABG pCO2 53.4 H POC ABG pO2 ABG Hemoglobin 11.4 L ABG Oxyhemoglobin ABG Sodium ABG Potassium ABG Chloride 96.0 L ABG Glucose 149 H Carboxyhemoglobin Sodium Chloride Carbon Dioxide BUN Creatinine Glucose POC Glucose 121 H 166 H Calcium Ferritin Lactate Dehydrogenase Total Creatine Kinase CK-MB (CK-2) C-Reactive Protein Total Protein Albumin Arterial Blood Glucose 149 H Urine WBC (Auto) Coronavirus (PCR) 12/08/20 12/08/20 12/08/20 05:29 08:33 08:33 WBC 11.2 H RBC 3.64 L Hgb Hct 30.2 L RDW 18.1 H Lymph % (Auto) [place] # (Auto) Seg Neutrophils % Seg Neuts % (Manual) Lymphocytes % (Manual) Seg Neutrophils # Seg Neutrophils # Man Lymphocytes # (Manual) Monocytes # (Manual) Basophils # (Manual) D-Dimer ABG pH POC ABG pCO2 POC ABG pO2 ABG Hemoglobin ABG Oxyhemoglobin ABG Sodium ABG Potassium ABG Chloride ABG Glucose Carboxyhemoglobin Sodium Chloride 96.2 L Carbon Dioxide 33 H BUN 31 H Creatinine Glucose 166 H POC Glucose 128 H Calcium 10.3 H Ferritin Lactate Dehydrogenase Total Creatine Kinase CK-MB (CK-2) C-Reactive Protein Total Protein Albumin Arterial Blood Glucose Urine WBC (Auto) Coronavirus (PCR) 12/08/20 12/08/20 12/09/20 11:53 16:46 00:20 WBC RBC Hgb Hct RDW Lymph % (Auto) [place] # (Auto) Seg Neutrophils % Seg Neuts % (Manual) Lymphocytes % (Manual) Seg Neutrophils # Seg Neutrophils # Man Lymphocytes # (Manual) Monocytes # (Manual) Basophils # (Manual) D-Dimer ABG pH POC ABG pCO2 POC ABG pO2 ABG Hemoglobin ABG Oxyhemoglobin ABG Sodium ABG Potassium ABG Chloride ABG Glucose Carboxyhemoglobin Sodium Chloride Carbon Dioxide BUN Creatinine Glucose POC Glucose 170 H 157 H 164 H Calcium Ferritin Lactate Dehydrogenase Total Creatine Kinase CK-MB (CK-2) C-Reactive Protein Total Protein Albumin Arterial Blood Glucose Urine WBC (Auto) Coronavirus (PCR) 12/09/20 12/09/20 12/09/20 04:00 05:07 05:07 WBC 11.4 H RBC 3.53 L Hgb 9.8 L Hct 29.2 L RDW 17.8 H Lymph % (Auto) [place] # (Auto) Seg Neutrophils % Seg Neuts % (Manual) Lymphocytes % (Manual) Seg Neutrophils # Seg Neutrophils # Man Lymphocytes # (Manual) Monocytes # (Manual) Basophils # (Manual) D-Dimer ABG pH POC ABG pCO2 54.4 H POC ABG pO2 ABG Hemoglobin 10.5 L ABG Oxyhemoglobin ABG Sodium ABG Potassium ABG Chloride ABG Glucose 204 H Carboxyhemoglobin Sodium Chloride Carbon Dioxide 33 H BUN 38 H Creatinine Glucose 189 H POC Glucose Calcium Ferritin Lactate Dehydrogenase Total Creatine Kinase CK-MB (CK-2) C-Reactive Protein Total Protein Albumin Arterial Blood Glucose 204 H Urine WBC (Auto) Coronavirus (PCR) 12/09/20 12/09/20 12/09/20 05:30 11:57 17:33 WBC RBC Hgb Hct RDW Lymph % (Auto) [place] # (Auto) Seg Neutrophils % Seg Neuts % (Manual) Lymphocytes % (Manual) Seg Neutrophils # Seg Neutrophils # Man Lymphocytes # (Manual) Monocytes # (Manual) Basophils # (Manual) D-Dimer ABG pH POC ABG pCO2 POC ABG pO2 ABG Hemoglobin ABG Oxyhemoglobin ABG Sodium ABG Potassium ABG Chloride ABG Glucose Carboxyhemoglobin Sodium Chloride Carbon Dioxide BUN Creatinine Glucose POC Glucose 190 H 153 H 180 H Calcium Ferritin Lactate Dehydrogenase Total Creatine Kinase CK-MB (CK-2) C-Reactive Protein Total Protein Albumin Arterial Blood Glucose Urine WBC (Auto) Coronavirus (PCR) 12/10/20 12/10/20 12/10/20 00:28 03:16 05:03 WBC 11.5 H RBC 3.42 L Hgb 9.4 L Hct 29.3 L RDW 17.9 H Lymph % (Auto) [place] # (Auto) Seg Neutrophils % Seg Neuts % (Manual) Lymphocytes % (Manual) Seg Neutrophils # Seg Neutrophils # Man Lymphocytes # (Manual) Monocytes # (Manual) Basophils # (Manual) D-Dimer ABG pH 7.493 H POC ABG pCO2 POC ABG pO2 71.4 L ABG Hemoglobin 9.9 L ABG Oxyhemoglobin ABG Sodium ABG Potassium ABG Chloride ABG Glucose 181 H Carboxyhemoglobin 0.4 L Sodium Chloride Carbon Dioxide BUN Creatinine Glucose POC Glucose 173 H Calcium Ferritin Lactate Dehydrogenase Total Creatine Kinase CK-MB (CK-2) C-Reactive Protein Total Protein Albumin Arterial Blood Glucose 181 H Urine WBC (Auto) Coronavirus (PCR) 12/10/20 12/10/20 05:03 05:48 WBC RBC Hgb Hct RDW Lymph % (Auto) [place] # (Auto) Seg Neutrophils % Seg Neuts % (Manual) Lymphocytes % (Manual) Seg Neutrophils # Seg Neutrophils # Man Lymphocytes # (Manual) Monocytes # (Manual) Basophils # (Manual) D-Dimer ABG pH POC ABG pCO2 POC ABG pO2 ABG Hemoglobin ABG Oxyhemoglobin ABG Sodium ABG Potassium ABG Chloride ABG Glucose Carboxyhemoglobin Sodium Chloride Carbon Dioxide BUN 34 H Creatinine Glucose 174 H POC Glucose 176 H Calcium Ferritin Lactate Dehydrogenase Total Creatine Kinase CK-MB (CK-2) C-Reactive Protein Total Protein Albumin Arterial Blood Glucose Urine WBC (Auto) Coronavirus (PCR) Chest x-ray: image reviewed Allied health notes reviewed: RT
[2020-12-10] MEDS: IPRATROPIUM/ALBUTEROL SULFATE 3 ML AMPUL.NEB IH SCH ×2 (13:10→20:22)
--- NOTE | 2020-12-10 15:41 | Progress Note ---
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 Neuro: h/o migraines, peripheral neuropathy -Sedated with fentanyl, Versed, Precedex -Goal RASS 0 to -1 -Avoid delirium -SAT trials when appropriate -Xanax as needed -Scheduled gabapentin -Bilateral restraints for safety -Neuro consult -CM request LP Cardio: ST,h/o HTN, s/p hypertensive urgency, s/p cardiac arrest -S/p Cardene drip -Blood pressure monitoring per protocol -Restarted home hydrochlorothiazide; dose decreased re soft BP -S/p cardiac arrest on 12/06 Resp: Acute hypoxic respiratory failure, severe tracheal stenosis, bronchial asthma exacerbation -Patient was intubated in the emergency department for ventilation support due to severe angioedema -CCM consulted, appreciate recommendations -VAP bundle -Daily SBT trial when appropriate -SPO2 monitoring -Daily CXR and ABG -A.m. vent settings: Assist-control rate 20, tidal volume 450, PEEP 8, 45% FiO2 -Intubated with 6 oett at 20 at the lips -See RT notes for weaning -Steroids GI: Morbid obesity -Nutrition consulted -Tube feedings at goal -Bowel regimen with Senokot -24-hour net positive 1274 -PPI : Acute kidney injury 2/2 Vasomotor nephropathy -Presented with a BUN/creatinine of 0.8/10 which increased to 1.7/26 on 12/04 but no down trending -Significant output -Daily weights -Avoid nephrotoxic medications -Renally dose medications -Dash -Trend BMP ID: Acute sepsis, hereditary idiopathic angioedema and urticia, Alpha gal syndrome, COVID-19 infection, febrile illness, allergic reaction, Ecoli UTI -Infectious disease consulted, appreciate recommendations -h/o multiple intubations and tracheostomy in the past, patient has multiple allergies -Steroids, Benadryl -Outpatient mobile home installer/ENT follow-up upon discharge -Per the patient has been positive for COVID-19 for approximately 20 days prior to admission -ABX per ID: Escalated to cefepime from azithromycin and ceftriaxone -Droplet/agitation precautions -Follow WBC and culture data -Follow fever curve -Per ID no acute therapy indicated given duration since onset for covid Endo: h/o DM type II, hyperglycemia -SSI -Avoid hypoglycemia -BG every 6 Heme: Leukocytosis -Trend CBC -Patient on antibiotic therapy and steroids -Bilateral lower extremity Doppler ultrasound completed-> no DVT The high probability of a clinically significant, sudden or life threatening deterioration of the [multi] system(s) required my full and direct attention, intervention and personal management. The aggregate critical care time was [90] minutes. This time is in addition to time spent performing reported procedures but includes the following: [x] Data Review and interpretation [x] Patient assessment and monitoring of vital signs [x] Documentation [x] Medication orders and management Disposition Plan: icu Total Time Spent with Patient (Minutes): 90 History Interval history: This is a 39-year-old female with HTN, migraines, asthma, peripheral neuropathy, morbid obesity severe tracheal stenosis, idiopathic heredity angioedema and uticaria, alphagal syndrome s/p trach and multiple intubations who presented to emergency department on 11/29 for allergic reaction. Patient was intubated in the emergency department. Per family IV Benadryl, ketamine and Decadron work fo r spasms and stridor. Patient reportedly used EpiPen prior to arrival to emergency department. Patient is a being admitted to the hospital service with consult to [facility] for acute respiratory failure with hypoxemia secondary to hereditary angioedema and allergic reaction, hypertensive urgency. 11/30: Patient is on vent but awake and communicative. She is anxious. Patient does not know what triggered current recurrence of angioedema. FiO2 35%. Hemodynamically stable. Discussed with nursing staff and the patient, she communicates with writing. 12/01: Patient remains on vent and sedated. Current FiO2 30%. No acute events from overnight reported. Angioedema of face seems to improving. Hemo dynamically stable. Pulmonary managing ventilator. Will be extubated when angioedema improved significantly. Discussed with the nursing staff. 12/02/20; Dr. Estrada recommended to initiate transfer to [facility] under the care of patient's ENT surgeon Dr. Carias I called [facility] transfer center at [phone] and requested a transfer, discussed in detail with the transfer center nurse Ms. River She she took all the patient's information and added the name of the patient to the list of waiting for ICU transfers and reported that there are no ICU beds available at this point. Would call back, and said she would request for a facesheet I informed the above information to subassembler Dr. Estrada ,ICU charge nurse and the patient's nurse. Will follow up with the transfer process 12/03/2020; Asc[facility] PCR test is positive today reports patient has been Covid positive for the last 20 days without any symptoms Management per guidelines, ID consult 12/03/20 20:18: I called patient's spouse Mr. Manoj Sol at [phone] and discussed in detail patient's condition, treatment plan, tests and reports, efforts to transfer the patient to [facility], however could not be successfully till now due to unavailability of ICU beds at [facility] at this point, he wanted to know the plan of extubation here in the hospital, I encouraged him to call back tomorrow to discuss with pulmonary critical physician Dr. Estrada. I answered all his questions, he also reports that patient Ms. Ebenezer Lynn has been Covid positive for the last 20 days. I encouraged him to call back if she has any new concerns regarding the patient's condition no other treatment. He was appreciative of my call 12/04/2020; Persistent fevers, persistent positive COVID-19 ID consulted, awaiting transfer to [facility] Discussed extensively with patient's yesterday Patient is critically ill ,very poor prognosis 12/05: Patient's updated by [facility], awaiting transfer to [facility]. 12/06:CASSIUS overnight. This evening patient was agitated and bite down on OETT and became hypoxic. Eventually losing her pulse and received ACLS. Dr. Tavo Meeks attempted to update of events but no answer. See code sheet/note for details I updated pt mother over the phone as she questioned about "organ failure" and need for trach. She stated pt and her are against a trach. 12/07: CASSIUS overnight. updated on cardiac arrest yesterday. States that the patient and her would like to avoid a tracheostomy if possible however if emergent tracheostomy is needed then can be performed. Patient and are awaiting visit to [facility] for surgery for tracheal stenosis. Manoj Sol stated that mother in-law Nicole York may be contacted if Manoj is not able to be reached in case of emergency. Her number is [phone] 12/08: Patient with consistent agitation and Precedex drip started. 12/09: Patient seems less agitated with addition of Precedex yesterday. Patient remains on ventilatory support and is awaiting transfer to [facility]. 12/10: CASSIUS overnight. neuro consult and LP per CCM, Manoj updated and FT visit with family. Manoj request for visitation for at least extubation. He states that his presence helps with calming the patient down. He also recommends the use of Precedex to aid extubation and states that has worked before. Hospitalist Physical - Constitutional Vitals: Temp Pulse Resp BP Pulse Ox 100 F H 64 20 112/49 97 12/10/20 12:00 12/10/20 14:31 12/10/20 14:31 12/10/20 14:31 12/10/20 14:31 General appearance: Present: no acute distress, well-nourished, obese, other (Intubated on vent) - EENT Eyes: Present: PERRL ENT: dentition normal - Neck Neck: Present: normal ROM - Respiratory Respiratory effort: normal Respiratory: bilateral: diminished - Cardiovascular Rhythm: regular Heart Sounds: Present: S1 & S2. Absent: systolic murmur, diastolic murmur - Extremities Extremities: no ischemia, pulses intact, pulses symmetrical, normal temperature, normal color Peripheral Pulses: within normal limits - Abdominal General gastrointestinal: soft, non-distended - Integumentary Integumentary: Present: warm (s), dry - Psychiatric Psychiatric: other (sedated) - Neurologic Neurologic: other (sedated) - Allied Health Allied health notes reviewed: nursing, RT, social work HEART Score - HEART Score Troponin: Troponin T < 0.010 ng/mL (0.00-0.029) 11/30/20 14:12 Results - Labs CBC & Chem 7: 12/10/20 05:03 12/10/20 05:03 Labs: Laboratory Last Values WBC 11.5 K/mm3 (4.5-11.0) H 12/10/20 05:03 RBC 3.42 M/mm3 (3.65-5.03) L 12/10/20 05:03 Hgb 9.4 gm/dl (10.1-14.3) L 12/10/20 05:03 Hct 29.3 % (30.3-42.9) L 12/10/20 05:03 MCV 86 fl (79-97) 12/10/20 05:03 MCH 28 pg (28-32) 12/10/20 05:03 MCHC 32 % (30-34) 12/10/20 05:03 RDW 17.9 % (13.2-15.2) H 12/10/20 05:03 Plt Count 199 K/mm3 (140-440) 12/10/20 05:03 Lymph % (Auto) 13.1 % (13.4-35.0) L 12/05/20 11:04 [place] % (Auto) 6.7 % (0.0-7.3) 12/05/20 11:04 Eos % (Auto) 2.2 % (0.0-4.3) 12/05/20 11:04 Baso % (Auto) 0.4 % (0.0-1.8) 12/05/20 11:04 Lymph # (Auto) 1.7 K/mm3 (1.2-5.4) 12/05/20 11:04 [place] # (Auto) 0.9 K/mm3 (0.0-0.8) H 12/05/20 11:04 Eos # (Auto) 0.3 K/mm3 (0.0-0.4) 12/05/20 11:04 Baso # (Auto) 0.1 K/mm3 (0.0-0.1) 12/05/20 11:04 Add Manual Diff Complete 12/04/20 05:40 Total Counted 100 12/04/20 05:40 Seg Neutrophils % 77.6 % (40.0-70.0) H 12/05/20 11:04 Seg Neuts % (Manual) 74.0 % (40.0-70.0) H 12/04/20 05:40 Band Neutrophils % 16.0 % 12/04/20 05:40 Lymphocytes % (Manual) 2.0 % (13.4-35.0) L 12/04/20 05:40 Monocytes % (Manual) 5.0 % (0.0-7.3) 12/04/20 05:40 Eosinophils % (Manual) 2.0 % (0.0-4.3) 12/04/20 05:40 Basophils % (Manual) 1.0 % (0.0-1.8) 12/04/20 05:40 Nucleated RBC % Not Reportable 12/04/20 05:40 Seg Neutrophils # 10.0 K/mm3 (1.8-7.7) H 12/05/20 11:04 Seg Neutrophils # Man 16.1 K/mm3 (1.8-7.7) H 12/04/20 05:40 Band Neutrophils # 3.5 K/mm3 12/04/20 05:40 Lymphocytes # (Manual) 0.4 K/mm3 (1.2-5.4) L 12/04/20 05:40 Abs React Lymphs (Man) 0.0 K/mm3 12/04/20 05:40 Monocytes # (Manual) 1.1 K/mm3 (0.0-0.8) H 12/04/20 05:40 Eosinophils # (Manual) 0.4 K/mm3 (0.0-0.4) 12/04/20 05:40 Basophils # (Manual) 0.2 K/mm3 (0.0-0.1) H 12/04/20 05:40 Metamyelocytes # 0.0 K/mm3 12/04/20 05:40 Myelocytes # 0.0 K/mm3 12/04/20 05:40 Promyelocytes # 0.0 K/mm3 12/04/20 05:40 Blast Cells # 0.0 K/mm3 12/04/20 05:40 WBC Morphology Not Reportable 12/04/20 05:40 Hypersegmented Neuts Not Reportable 12/04/20 05:40 Hyposegmented Neuts Not Reportable 12/04/20 05:40 Hypogranular Neuts Not Reportable 12/04/20 05:40 Smudge Cells Not Reportable 12/04/20 05:40 Toxic Granulation Not Reportable 12/04/20 05:40 Toxic Vacuolation Not Reportable 12/04/20 05:40 Dohle Bodies Not Reportable 12/04/20 05:40 Pelger-Huet Anomaly Not Reportable 12/04/20 05:40 Solomon Rods Not Reportable 12/04/20 05:40 Platelet Estimate Not Reportable 12/04/20 05:40 Clumped Platelets 1+ 12/04/20 05:40 Plt Clumps, EDTA Not Reportable 12/04/20 05:40 Large Platelets Not Reportable 12/04/20 05:40 Giant Platelets Not Reportable 12/04/20 05:40 Platelet Satelliting Not Reportable 12/04/20 05:40 Plt Morphology Comment Not Reportable 12/04/20 05:40 RBC Morphology Normal 12/04/20 05:40 Dimorphic RBCs Not Reportable 12/04/20 05:40 Polychromasia Not Reportable 12/04/20 05:40 Hypochromasia Not Reportable 12/04/20 05:40 Poikilocytosis Not Reportable 12/04/20 05:40 Anisocytosis Not Reportable 12/04/20 05:40 Microcytosis Not Reportable 12/04/20 05:40 Macrocytosis Not Reportable 12/04/20 05:40 Spherocytes Not Reportable 12/04/20 05:40 Pappenheimer Bodies Not Reportable 12/04/20 05:40 Sickle Cells Not Reportable 12/04/20 05:40 Target Cells Not Reportable 12/04/20 05:40 Tear Drop Cells Not Reportable 12/04/20 05:40 Ovalocytes Not Reportable 12/04/20 05:40 Helmet Cells Not Reportable 12/04/20 05:40 Merino-Goff Bodies Not Reportable 12/04/20 05:40 Wisner Rings Not Reportable 12/04/20 05:40 Billings Cells Not Reportable 12/04/20 05:40 Bite Cells Not Reportable 12/04/20 05:40 Crenated Cell Not Reportable 12/04/20 05:40 Elliptocytes Not Reportable 12/04/20 05:40 Acanthocytes (Spur) Not Reportable 12/04/20 05:40 Rouleaux Not Reportable 12/04/20 05:40 Hemoglobin C Crystals Not Reportable 12/04/20 05:40 Schistocytes Not Reportable 12/04/20 05:40 Malaria parasites Not Reportable 12/04/20 05:40 Charanjit Bodies Not Reportable 12/04/20 05:40 Hem Pathologist Commnt No 12/04/20 05:40 PT 13.9 Sec. (12.2-14.9) 12/07/20 04:00 INR 1.02 (0.87-1.13) 12/07/20 04:00 D-Dimer 1838.21 ng/mlDDU (0-234) H 12/04/20 10:41 ABG pH 7.493 (7.320-7.450) H 12/10/20 03:16 POC ABG pCO2 44.0 mmHg (32.0-48.0) 12/10/20 03:16 POC ABG pO2 71.4 mmHg (83-108) L 12/10/20 03:16 POC ABG HCO3 33.0 12/10/20 03:16 ABG O2 Saturation 94.9 (0-100) 12/10/20 03:16 POC ABG Base Excess 8.8 12/10/20 03:16 ABG Hemoglobin 9.9 (12.0-17.5) L 12/10/20 03:16 ABG Oxyhemoglobin 94.2 (94-98) 12/10/20 03:16 ABG Methemoglobin 0.3 (0.0-1.5) 12/10/20 03:16 ABG Sodium 138.8 mmol/L (136.0-145.0) 12/10/20 03:16 ABG Potassium 3.9 mmol/L (3.40-4.50) 12/10/20 03:16 ABG Chloride 100.0 mmol/L (98-107) 12/10/20 03:16 ABG Glucose 181 mg/dL (65-95) H 12/10/20 03:16 Carboxyhemoglobin 0.4 (0.5-1.5) L 12/10/20 03:16 FiO2 % 45.0 12/10/20 03:16 Sodium 137 mmol/L (137-145) 12/10/20 05:03 Potassium 4.4 mmol/L (3.6-5.0) 12/10/20 05:03 Chloride 98.2 mmol/L (98-107) 12/10/20 05:03 Carbon Dioxide 28 mmol/L (22-30) 12/10/20 05:03 Anion Gap 15 mmol/L 12/10/20 05:03 BUN 34 mg/dL (7-17) H 12/10/20 05:03 Creatinine 0.7 mg/dL (0.6-1.2) 12/10/20 05:03 Estimated GFR > 60 ml/min 12/10/20 05:03 BUN/Creatinine Ratio 49 % 12/10/20 05:03 Glucose 174 mg/dL (65-100) H 12/10/20 05:03 POC Glucose 203 mg/dL (70-105) H 12/10/20 11:41 Calcium 9.3 mg/dL (8.4-10.2) 12/10/20 05:03 Phosphorus 3.80 mg/dL (2.5-4.5) 12/09/20 05:07 Magnesium 2.20 mg/dL (1.7-2.3) 12/09/20 05:07 Ferritin 399.0 ng/mL (10.0-200.0) H 12/04/20 10:41 Total Bilirubin 0.30 mg/dL (0.1-1.2) 12/04/20 05:40 Direct Bilirubin < 0.2 mg/dL (0-0.2) 11/29/20 07:48 Indirect Bilirubin 0.0 mg/dL 11/29/20 07:48 AST 19 units/L (5-40) 12/04/20 05:40 ALT 28 units/L (7-56) 12/04/20 05:40 Alkaline Phosphatase 93 units/L (35-129) 12/04/20 05:40 Lactate Dehydrogenase 386 units/L (91-180) H 12/04/20 10:41 Total Creatine Kinase 1132 units/L (30-135) H 11/30/20 14:12 CK-MB (CK-2) 14.6 ng/mL (0.0-4.0) H 11/30/20 14:12 CK-MB (CK-2) Rel Index 1.2 (0-4) 11/30/20 14:12 Troponin T < 0.010 ng/mL (0.00-0.029) 11/30/20 14:12 C-Reactive Protein 34.30 mg/dL (0.00-1.30) H 12/04/20 10:41 Total Protein 6.2 g/dL (6.3-8.2) L 12/04/20 05:40 Albumin 2.6 g/dL (3.9-5) L 12/04/20 05:40 Albumin/Globulin Ratio 0.7 % 12/04/20 05:40 HCG, Qual Negative (Negative) 11/29/20 07:48 Arterial Blood Glucose 181 mg/dL (65-95) H 12/10/20 03:16 Arterial Blood Ionized Calcium 4.7 mg/dL (4.6-5.3) 12/10/20 03:16 Urine Color Lauren (Yellow) 12/04/20 07:30 Urine Turbidity Turbid (Clear) 12/04/20 07:30 Urine pH 5.0 (5.0-7.0) 12/04/20 07:30 Ur Specific [place] 1.011 (1.003-1.030) 12/04/20 07:30 Urine Protein 100 mg/dl mg/dL (Negative) 12/04/20 07:30 Urine Glucose (UA) Neg mg/dL (Negative) 12/04/20 07:30 Urine Ketones Neg mg/dL (Negative) 12/04/20 07:30 Urine Blood Lg (Negative) 12/04/20 07:30 Urine Nitrite Neg (Negative) 12/04/20 07:30 Urine Bilirubin Neg (Negative) 12/04/20 07:30 Urine Urobilinogen < 2.0 mg/dL (<2.0) 12/04/20 07:30 Ur Leukocyte Esterase Mod (Negative) 12/04/20 07:30 Urine WBC (Auto) > 182.0 /HPF (0.0-6.0) H 12/04/20 07:30 Urine RBC (Auto) 33.0 /HPF (0.0-6.0) 12/04/20 07:30 Urine WBC Clumps 3+ /HPF 12/04/20 07:30 WBC Casts 17 /LPF 12/04/20 07:30 Urine Mucus 3+ /HPF 12/04/20 07:30 Coronavirus (PCR) Positive (Negative) A 12/03/20 08:00 Dash/IV: Voiding Method Indwelling Catheter Active Medications - Current Medications Current Medications: Generic Name Dose Route Start Last Admin Trade Name Freq PRN Reason Stop Dose Admin Acetaminophen 650 mg 12/04/20 00:39 12/10/20 05:24 Acetaminophen 325 Mg Tab PO 650 mg Q6H PRN Administration Fever >101 Albuterol 2.5 mg 11/29/20 15:22 Albuterol 2.5 Mg/3 Ml Nebu IH Q4HRT PRN Shortness Of Breath Albuterol/Ipratropium 1 ampul 12/07/20 20:00 12/10/20 13:10 Ipratropium/Albuterol Sulfate 3 Ml Ampul.Neb IH 1 ampul Q12HRT KRYSTAL Administration Lipase/Protease/Amylase 1 each 11/29/20 15:23 Lipase 10,500/Protease 25,000/Amylase 43,750 (Units) Dr Cap FEEDTUBE PRN PRN For Clogged Feeding Tube Ascorbic Acid 500 mg 12/04/20 22:00 12/10/20 10:50 Ascorbic Acid 500 Mg Tab PO 500 mg BID KRYSTAL Administration Dextrose 50 ml 12/05/20 10:34 Dextrose 50% In Water (25gm) 50 Ml Syringe IV Q30MIN PRN Hypoglycemia Protocol Famotidine 20 mg 11/30/20 15:00 12/10/20 10:51 Famotidine 20 Mg/2 Ml Inj IV 20 mg BID KRYSTAL Administration Fentanyl 50 mcg 11/29/20 10:22 Fentanyl 100 Mcg/2 Ml Inj IV Q10MIN PRN ANALGESIA Fondaparinux 2.5 mg 11/29/20 22:00 12/09/20 22:19 Fondaparinux 2.5 Mg/0.5 Ml Inj SUB-Q 2.5 mg Q24H KRYSTAL Administration Gabapentin 600 mg 11/30/20 17:00 12/10/20 10:50 Gabapentin 500 Mg/10 Ml Oral Liqd PO 600 mg BID KRYSTAL Administration Hydrochlorothiazide 12.5 mg 12/10/20 10:00 12/10/20 10:50 Hydrochlorothiazide 12.5 Mg Cap PO 12.5 mg QDAY KRYSTAL Administration Hydrophilic Ointment 1 applic 12/01/20 08:54 Lip Therapy Vaseline TP Q2HR PRN Dry Lips Midazolam HCl 100 mg/ Sodium 100 mls @ 2 mls/hr 11/29/20 12:00 12/10/20 05:36 Chloride IV 5 mg/hr TITR KRYSTAL 5 mls/hr Administration Protocol 2 MG/HR Fentanyl Citrate 2,000 mcg in 100 mls @ 6.45 mls/hr 11/29/20 12:30 12/10/20 14:20 Fentanyl Drip Premix IV 4 mcg/kg/hr TITR KRYSTAL 25.8 mls/hr Administration Protocol 1 MCG/KG/HR Cefepime HCl 2 gm in 100 mls @ 200 mls/hr 12/06/20 12:00 12/10/20 14:24 Cefepime/Ns 2 Gm/100 Ml IV 12/10/20 20:29 200 mls/hr Q8H KRYSTAL Administration Protocol Dexmedetomidine HCl 400 mcg/ 104 mls @ 6.885 mls/hr 12/08/20 16:00 12/10/20 10:49 Sodium Chloride IV 0.5 mcg/kg/hr TITRATE KRYSTAL 17.212 mls/hr Administration Protocol 0.2 MCG/KG/HR Propofol 1,000 mg in 100 mls @ 3.972 mls/hr 12/08/20 19:00 Diprivan 10 Mg/Ml IV TITR KRYSTAL Protocol 5 MCG/KG/MIN Insulin Human Regular 0 units 12/05/20 12:00 12/10/20 14:27 Insulin Regular, Human 100 Units/1 Ml SUB-Q 2 units Q6HR KRYSTAL Administration Protocol Midazolam HCl 2 mg 11/29/20 10:22 12/08/20 18:35 Midazolam 2 Mg/2 Ml Inj IV 2 mg Q10MIN PRN Administration Sedation Montelukast Sodium 10 mg 11/29/20 22:00 12/09/20 22:20 Montelukast 10 Mg Tab PO 10 mg HS KRYSTAL Administration Multi-Ingred Cream/Lotion/Oil/Oint 1 applic 12/01/20 08:54 Mineral Oil/Petrolatum, White Ophth Oint 3.5 Gm OU Q4HR PRN Dry Eye(s) Senna/Docusate Sodium 1 tab 11/29/20 10:00 12/10/20 10:52 Sennosides/Docusate Sodium 8.6/50 Mg Tab FEEDTUBE 1 tab BID KRYSTAL Administration Simple Syrup 15 ml 11/29/20 15:23 Simple Syrup 15 Ml FEEDTUBE PRN PRN Hypoglycemia Simple Syrup 30 ml 11/29/20 15:23 Simple Syrup 15 Ml FEEDTUBE PRN PRN Hypoglycemia Sodium Bicarbonate 325 mg 11/29/20 15:23 Sodium Bicarbonate 325 Mg Tab FEEDTUBE PRN PRN For Clogged Feeding Tube Zinc Sulfate 220 mg 12/05/20 10:00 12/10/20 10:50 Zinc Sulfate 220 Mg Cap PO 220 mg QDAY KRYSTAL Administration Nutrition/Malnutrition Assess - Dietary Evaluation Nutrition/Malnutrition Findings: Nutrition Notes Start: 11/30/20 09:03 Freq: Status: Active Protocol: Document 12/07/20 10:14 VICTORIA (Rec: 12/07/20 10:17 VICTORIA [id number]) Nutrition Notes Initial or Follow up Reassessment Current Diagnosis Respiratory Failure Other Pertinent Diagnosis allergic reaction, alpha gal, hx HTN Current Diet Vital HP at 65 ml/hr Labs/Tests BUN 29 BG 148 Pertinent Medications Reviewed Height 5 ft 6 in Weight 132.4 kg [place] Body Weight (kg) 59.09 BMI 47.1 Weight Status Morbidly Obese Subjective/Other Information Pt suffered code blue yesterday. RN reports TF at goal and pt tolerating. Percent of energy/protein needs met: 84%/91% Burn Absent Trauma Absent Difficulty In Swallowing Current % PO Negligible Minimum of two criteria No Fluid Accumulation Mild (non-severe) #1 Nutrition Diagnosis Inadequate oral intake Diagnosis Progress(for reassessment Continues documentation) Is patient on ventilator? Yes Is Patient Ambulatory and/or Out of Bed No REE-([facility]-confined to bed) 2421.060 Kcal/Kg value to use for calculation 14 Approximate Energy Requirements Using 1854 kcal/Kg Calculation Used for Recommendations Kcal/kg Additional Notes Protein needs: 2.5 g/kg IBW , 148 g Fluid needs: 1ml/kcal Nutrition Intervention Change Diet Order: continue Nutrition Support: Vital High Protein at 65 ml/hr flush 45 ml q4h Kcal 1,560 Protein (gm) 135 Fluid (mL) 1,304 Goal #1 Meet at least 75% of protein and kcal needs via TF Anticipated Discharge Needs: Unable to determine at this time Follow-Up By: 12/13/20 Additional Comments F/u: TF tolerance <IZABELLA MEEKS - Last Filed: 12/11/20 11:04> History Interval history: I saw and evaluated the patient. Discussed with the nurse practitioner and agree with their findings and plan as documented in this note. Hospitalist Physical - Constitutional Vitals: Temp Pulse Resp BP Pulse Ox 100 F H 113 H 18 108/50 96 12/11/20 08:00 12/11/20 07:50 12/11/20 07:50 12/11/20 07:32 12/11/20 07:32 HEART Score - HEART Score Troponin: Troponin T < 0.010 ng/mL (0.00-0.029) 11/30/20 14:12 Results - Labs CBC & Chem 7: 12/11/20 06:05 12/11/20 06:05 Labs: Laboratory Last Values WBC 10.5 K/mm3 (4.5-11.0) 12/11/20 06:05 RBC 3.19 M/mm3 (3.65-5.03) L 12/11/20 06:05 Hgb 9.0 gm/dl (10.1-14.3) L 12/11/20 06:05 Hct 27.1 % (30.3-42.9) L 12/11/20 06:05 MCV 85 fl (79-97) 12/11/20 06:05 MCH 28 pg (28-32) 12/11/20 06:05 MCHC 33 % (30-34) 12/11/20 06:05 RDW 18.0 % (13.2-15.2) H 12/11/20 06:05 Plt Count 200 K/mm3 (140-440) 12/11/20 06:05 Lymph % (Auto) 13.1 % (13.4-35.0) L 12/05/20 11:04 [place] % (Auto) 6.7 % (0.0-7.3) 12/05/20 11:04 Eos % (Auto) 2.2 % (0.0-4.3) 12/05/20 11:04 Baso % (Auto) 0.4 % (0.0-1.8) 12/05/20 11:04 Lymph # (Auto) 1.7 K/mm3 (1.2-5.4) 12/05/20 11:04 [place] # (Auto) 0.9 K/mm3 (0.0-0.8) H 12/05/20 11:04 Eos # (Auto) 0.3 K/mm3 (0.0-0.4) 12/05/20 11:04 Baso # (Auto) 0.1 K/mm3 (0.0-0.1) 12/05/20 11:04 Add Manual Diff Complete 12/04/20 05:40 Total Counted 100 12/04/20 05:40 Seg Neutrophils % 77.6 % (40.0-70.0) H 12/05/20 11:04 Seg Neuts % (Manual) 74.0 % (40.0-70.0) H 12/04/20 05:40 Band Neutrophils % 16.0 % 12/04/20 05:40 Lymphocytes % (Manual) 2.0 % (13.4-35.0) L 12/04/20 05:40 Monocytes % (Manual) 5.0 % (0.0-7.3) 12/04/20 05:40 Eosinophils % (Manual) 2.0 % (0.0-4.3) 12/04/20 05:40 Basophils % (Manual) 1.0 % (0.0-1.8) 12/04/20 05:40 Nucleated RBC % Not Reportable 12/04/20 05:40 Seg Neutrophils # 10.0 K/mm3 (1.8-7.7) H 12/05/20 11:04 Seg Neutrophils # Man 16.1 K/mm3 (1.8-7.7) H 12/04/20 05:40 Band Neutrophils # 3.5 K/mm3 12/04/20 05:40 Lymphocytes # (Manual) 0.4 K/mm3 (1.2-5.4) L 12/04/20 05:40 Abs React Lymphs (Man) 0.0 K/mm3 12/04/20 05:40 Monocytes # (Manual) 1.1 K/mm3 (0.0-0.8) H 12/04/20 05:40 Eosinophils # (Manual) 0.4 K/mm3 (0.0-0.4) 12/04/20 05:40 Basophils # (Manual) 0.2 K/mm3 (0.0-0.1) H 12/04/20 05:40 Metamyelocytes # 0.0 K/mm3 12/04/20 05:40 Myelocytes # 0.0 K/mm3 12/04/20 05:40 Promyelocytes # 0.0 K/mm3 12/04/20 05:40 Blast Cells # 0.0 K/mm3 12/04/20 05:40 WBC Morphology Not Reportable 12/04/20 05:40 Hypersegmented Neuts Not Reportable 12/04/20 05:40 Hyposegmented Neuts Not Reportable 12/04/20 05:40 Hypogranular Neuts Not Reportable 12/04/20 05:40 Smudge Cells Not Reportable 12/04/20 05:40 Toxic Granulation Not Reportable 12/04/20 05:40 Toxic Vacuolation Not Reportable 12/04/20 05:40 Dohle Bodies Not Reportable 12/04/20 05:40 Pelger-Huet Anomaly Not Reportable 12/04/20 05:40 Solomon Rods Not Reportable 12/04/20 05:40 Platelet Estimate Not Reportable 12/04/20 05:40 Clumped Platelets 1+ 12/04/20 05:40 Plt Clumps, EDTA Not Reportable 12/04/20 05:40 Large Platelets Not Reportable 12/04/20 05:40 Giant Platelets Not Reportable 12/04/20 05:40 Platelet Satelliting Not Reportable 12/04/20 05:40 Plt Morphology Comment Not Reportable 12/04/20 05:40 RBC Morphology Normal 12/04/20 05:40 Dimorphic RBCs Not Reportable 12/04/20 05:40 Polychromasia Not Reportable 12/04/20 05:40 Hypochromasia Not Reportable 12/04/20 05:40 Poikilocytosis Not Reportable 12/04/20 05:40 Anisocytosis Not Reportable 12/04/20 05:40 Microcytosis Not Reportable 12/04/20 05:40 Macrocytosis Not Reportable 12/04/20 05:40 Spherocytes Not Reportable 12/04/20 05:40 Pappenheimer Bodies Not Reportable 12/04/20 05:40 Sickle Cells Not Reportable 12/04/20 05:40 Target Cells Not Reportable 12/04/20 05:40 Tear Drop Cells Not Reportable 12/04/20 05:40 Ovalocytes Not Reportable 12/04/20 05:40 Helmet Cells Not Reportable 12/04/20 05:40 Merino-Goff Bodies Not Reportable 12/04/20 05:40 Wisner Rings Not Reportable 12/04/20 05:40 Paulo Cells Not Reportable 12/04/20 05:40 Bite Cells Not Reportable 12/04/20 05:40 Crenated Cell Not Reportable 12/04/20 05:40 Elliptocytes Not Reportable 12/04/20 05:40 Acanthocytes (Spur) Not Reportable 12/04/20 05:40 Rouleaux Not Reportable 12/04/20 05:40 Hemoglobin C Crystals Not Reportable 12/04/20 05:40 Schistocytes Not Reportable 12/04/20 05:40 Malaria parasites Not Reportable 12/04/20 05:40 Charanjit Bodies Not Reportable 12/04/20 05:40 Hem Pathologist Commnt No 12/04/20 05:40 PT 13.9 Sec. (12.2-14.9) 12/07/20 04:00 INR 1.02 (0.87-1.13) 12/07/20 04:00 D-Dimer 1838.21 ng/mlDDU (0-234) H 12/04/20 10:41 ABG pH 7.517 (7.320-7.450) H 12/11/20 04:00 POC ABG pCO2 35.5 mmHg (32.0-48.0) 12/11/20 04:00 POC ABG pO2 97.6 mmHg (83-108) 12/11/20 04:00 POC ABG HCO3 28.1 12/11/20 04:00 ABG O2 Saturation 97.8 (0-100) 12/11/20 04:00 POC ABG Base Excess 5.1 12/11/20 04:00 ABG Hemoglobin 10.0 (12.0-17.5) L 12/11/20 04:00 ABG Oxyhemoglobin 97.2 (94-98) 12/11/20 04:00 ABG Methemoglobin 0.3 (0.0-1.5) 12/11/20 04:00 ABG Sodium 137.0 mmol/L (136.0-145.0) 12/11/20 04:00 ABG Potassium 3.9 mmol/L (3.40-4.50) 12/11/20 04:00 ABG Chloride 102.0 mmol/L (98-107) 12/11/20 04:00 ABG Glucose 175 mg/dL (65-95) H 12/11/20 04:00 Carboxyhemoglobin 0.3 (0.5-1.5) L 12/11/20 04:00 FiO2 % 45.0 12/11/20 04:00 Sodium 139 mmol/L (137-145) 12/11/20 06:05 Potassium 4.4 mmol/L (3.6-5.0) 12/11/20 06:05 Chloride 101.3 mmol/L (98-107) 12/11/20 06:05 Carbon Dioxide 28 mmol/L (22-30) 12/11/20 06:05 Anion Gap 14 mmol/L 12/11/20 06:05 BUN 33 mg/dL (7-17) H 12/11/20 06:05 Creatinine 0.6 mg/dL (0.6-1.2) 12/11/20 06:05 Estimated GFR > 60 ml/min 12/11/20 06:05 BUN/Creatinine Ratio 55 % 12/11/20 06:05 Glucose 158 mg/dL (65-100) H 12/11/20 06:05 POC Glucose 151 mg/dL (70-105) H 12/11/20 05:18 Calcium 9.2 mg/dL (8.4-10.2) 12/11/20 06:05 Phosphorus 3.60 mg/dL (2.5-4.5) 12/11/20 06:05 Magnesium 2.10 mg/dL (1.7-2.3) 12/11/20 06:05 Ferritin 399.0 ng/mL (10.0-200.0) H 12/04/20 10:41 Total Bilirubin 0.30 mg/dL (0.1-1.2) 12/04/20 05:40 Direct Bilirubin < 0.2 mg/dL (0-0.2) 11/29/20 07:48 Indirect Bilirubin 0.0 mg/dL 11/29/20 07:48 AST 19 units/L (5-40) 12/04/20 05:40 ALT 28 units/L (7-56) 12/04/20 05:40 Alkaline Phosphatase 93 units/L (35-129) 12/04/20 05:40 Lactate Dehydrogenase 386 units/L (91-180) H 12/04/20 10:41 Total Creatine Kinase 1132 units/L (30-135) H 11/30/20 14:12 CK-MB (CK-2) 14.6 ng/mL (0.0-4.0) H 11/30/20 14:12 CK-MB (CK-2) Rel Index 1.2 (0-4) 11/30/20 14:12 Troponin T < 0.010 ng/mL (0.00-0.029) 11/30/20 14:12 C-Reactive Protein 34.30 mg/dL (0.00-1.30) H 12/04/20 10:41 Total Protein 6.2 g/dL (6.3-8.2) L 12/04/20 05:40 Albumin 2.6 g/dL (3.9-5) L 12/04/20 05:40 Albumin/Globulin Ratio 0.7 % 12/04/20 05:40 HCG, Qual Negative (Negative) 11/29/20 07:48 Arterial Blood Glucose 175 mg/dL (65-95) H 12/11/20 04:00 Arterial Blood Ionized Calcium 4.7 mg/dL (4.6-5.3) 12/11/20 04:00 Urine Color Lauren (Yellow) 12/04/20 07:30 Urine Turbidity Turbid (Clear) 12/04/20 07:30 Urine pH 5.0 (5.0-7.0) 12/04/20 07:30 Ur Specific [place] 1.011 (1.003-1.030) 12/04/20 07:30 Urine Protein 100 mg/dl mg/dL (Negative) 12/04/20 07:30 Urine Glucose (UA) Neg mg/dL (Negative) 12/04/20 07:30 Urine Ketones Neg mg/dL (Negative) 12/04/20 07:30 Urine Blood Lg (Negative) 12/04/20 07:30 Urine Nitrite Neg (Negative) 12/04/20 07:30 Urine Bilirubin Neg (Negative) 12/04/20 07:30 Urine Urobilinogen < 2.0 mg/dL (<2.0) 12/04/20 07:30 Ur Leukocyte Esterase Mod (Negative) 12/04/20 07:30 Urine WBC (Auto) > 182.0 /HPF (0.0-6.0) H 12/04/20 07:30 Urine RBC (Auto) 33.0 /HPF (0.0-6.0) 12/04/20 07:30 Urine WBC Clumps 3+ /HPF 12/04/20 07:30 WBC Casts 17 /LPF 12/04/20 07:30 Urine Mucus 3+ /HPF 12/04/20 07:30 Coronavirus (PCR) Positive (Negative) A 12/03/20 08:00 Dash/IV: Voiding Method Indwelling Catheter Active Medications - Current Medications Current Medications: Generic Name Dose Route Start Last Admin Trade Name Freq PRN Reason Stop Dose Admin Acetaminophen 650 mg 12/04/20 00:39 12/10/20 05:24 Acetaminophen 325 Mg Tab PO 650 mg Q6H PRN Administration Fever >101 Albuterol 2.5 mg 11/29/20 15:22 Albuterol 2.5 Mg/3 Ml Nebu IH Q4HRT PRN Shortness Of Breath Albuterol/Ipratropium 1 ampul 12/07/20 20:00 12/11/20 07:47 Ipratropium/Albuterol Sulfate 3 Ml Ampul.Neb IH 1 ampul Q12HRT KRYSTAL Administration Lipase/Protease/Amylase 1 each 11/29/20 15:23 Lipase 10,500/Protease 25,000/Amylase 43,750 (Units) Dr Ariza FEEDTUBE PRN PRN For Clogged Feeding Tube Ascorbic Acid 500 mg 12/04/20 22:00 12/11/20 09:40 Ascorbic Acid 500 Mg Tab PO 500 mg BID KRYSTAL Administration Dextrose 50 ml 12/05/20 10:34 Dextrose 50% In Water (25gm) 50 Ml Syringe IV Q30MIN PRN Hypoglycemia Protocol Famotidine 20 mg 11/30/20 15:00 12/11/20 09:41 Famotidine 20 Mg/2 Ml Inj IV 20 mg BID KRYSTAL Administration Fentanyl 50 mcg 11/29/20 10:22 Fentanyl 100 Mcg/2 Ml Inj IV Q10MIN PRN ANALGESIA Fondaparinux 2.5 mg 11/29/20 22:00 12/10/20 23:04 Fondaparinux 2.5 Mg/0.5 Ml Inj SUB-Q 2.5 mg Q24H KRYSTAL Administration Gabapentin 600 mg 11/30/20 17:00 12/11/20 09:58 Gabapentin 500 Mg/10 Ml Oral Liqd PO 600 mg BID KRYSTAL Administration Hydrochlorothiazide 12.5 mg 12/10/20 10:00 12/11/20 09:40 Hydrochlorothiazide 12.5 Mg Cap PO 12.5 mg QDAY KRYSTAL Administration Hydrophilic Ointment 1 applic 12/01/20 08:54 Lip Therapy Vaseline TP Q2HR PRN Dry Lips Midazolam HCl 100 mg/ Sodium 100 mls @ 2 mls/hr 11/29/20 12:00 12/10/20 20:22 Chloride IV 5 mg/hr TITR KRYSTAL 5 mls/hr Administration Protocol 2 MG/HR Fentanyl Citrate 2,000 mcg in 100 mls @ 6.45 mls/hr 11/29/20 12:30 12/11/20 07:15 Fentanyl Drip Premix IV 4 mcg/kg/hr TITR KRYSTAL 25.8 mls/hr Administration Protocol 1 MCG/KG/HR Dexmedetomidine HCl 400 mcg/ 104 mls @ 6.885 mls/hr 12/08/20 16:00 12/11/20 07:15 Sodium Chloride IV 0.5 mcg/kg/hr TITRATE KRYSTAL 17.212 mls/hr Administration Protocol 0.2 MCG/KG/HR Propofol 1,000 mg in 100 mls @ 3.972 mls/hr 12/08/20 19:00 Diprivan 10 Mg/Ml IV TITR KRYSTAL Protocol 5 MCG/KG/MIN Vancomycin HCl 2,000 mg/ 540 mls @ 250 mls/hr 12/11/20 12:00 Sodium Chloride IV 12/11/20 14:09 ONCE ONE Vancomycin HCl 1,500 mg/ 530 mls @ 333.333 mls/hr 12/11/20 20:00 Sodium Chloride IV Q8H [facility] Insulin Human Regular 0 units 12/05/20 12:00 12/11/20 07:16 Insulin Regular, Human 100 Units/1 Ml SUB-Q 1 units Q6HR KRYSTAL Administration Protocol Midazolam HCl 2 mg 11/29/20 10:22 12/08/20 18:35 Midazolam 2 Mg/2 Ml Inj IV 2 mg Q10MIN PRN Administration Sedation Montelukast Sodium 10 mg 11/29/20 22:00 12/10/20 23:05 Montelukast 10 Mg Tab PO 10 mg HS KRYSTAL Administration Multi-Ingred Cream/Lotion/Oil/Oint 1 applic 12/01/20 08:54 Mineral Oil/Petrolatum, White Ophth Oint 3.5 Gm OU Q4HR PRN Dry Eye(s) Senna/Docusate Sodium 1 tab 11/29/20 10:00 12/11/20 09:40 Sennosides/Docusate Sodium 8.6/50 Mg Tab FEEDTUBE 1 tab BID KRYSTAL Administration Simple Syrup 15 ml 11/29/20 15:23 Simple Syrup 15 Ml FEEDTUBE PRN PRN Hypoglycemia Simple Syrup 30 ml 11/29/20 15:23 Simple Syrup 15 Ml FEEDTUBE PRN PRN Hypoglycemia Sodium Bicarbonate 325 mg 11/29/20 15:23 Sodium Bicarbonate 325 Mg Tab FEEDTUBE PRN PRN For Clogged Feeding Tube Zinc Sulfate 220 mg 12/05/20 10:00 12/11/20 09:40 Zinc Sulfate 220 Mg Cap PO 220 mg QDAY KRYSTAL Administration Nutrition/Malnutrition Assess - Dietary Evaluation Nutrition/Malnutrition Findings: Nutrition Notes Start: 11/30/20 09:03 Freq: Status: Active Protocol: Document 12/07/20 10:14 VICTORIA (Rec: 12/07/20 10:17 VICTORIA [id number]) Nutrition Notes Initial or Follow up Reassessment Current Diagnosis Respiratory Failure Other Pertinent Diagnosis allergic reaction, alpha gal, hx HTN Current Diet Vital HP at 65 ml/hr Labs/Tests BUN 29 BG 148 Pertinent Medications Reviewed Height 5 ft 6 in Weight 132.4 kg [place] Body Weight (kg) 59.09 BMI 47.1 Weight Status Morbidly Obese Subjective/Other Information Pt suffered code blue yesterday. RN reports TF at goal and pt tolerating. Percent of energy/protein needs met: 84%/91% Burn Absent Trauma Absent Difficulty In Swallowing Current % PO Negligible Minimum of two criteria No Fluid Accumulation Mild (non-severe) #1 Nutrition Diagnosis Inadequate oral intake Diagnosis Progress(for reassessment Continues documentation) Is patient on ventilator? Yes Is Patient Ambulatory and/or Out of Bed No REE-([facility]-confined to bed) 2421.060 Kcal/Kg value to use for calculation 14 Approximate Energy Requirements Using 1854 kcal/Kg Calculation Used for Recommendations Kcal/kg Additional Notes Protein needs: 2.5 g/kg IBW , 148 g Fluid needs: 1ml/kcal Nutrition Intervention Change Diet Order: continue Nutrition Support: Vital High Protein at 65 ml/hr flush 45 ml q4h Kcal 1,560 Protein (gm) 135 Fluid (mL) 1,304 Goal #1 Meet at least 75% of protein and kcal needs via TF Anticipated Discharge Needs: Unable to determine at this time Follow-Up By: 12/13/20 Additional Comments F/u: TF tolerance
[2020-12-10] MEDS: FONDAPARINUX 2.5 MG/0.5 ML INJ SUB-Q SCH (23:04)
[2020-12-10] MEDS: MONTELUKAST 10 MG TAB PO SCH (23:05)
[2020-12-11] MEDS: INSULIN REGULAR, HUMAN 100 UNITS/1 ML SUB-Q SCH ×5 (01:13→18:12)
[2020-12-11] MEDS: fentaNYL DRIP Premix 2,000 MCG/100 ML BAG IV SCH ×6 (03:18→22:54)
[2020-12-11 06:38] LABS: Hematocrit 27.1 % (30.3-42.9); Mean Corpuscular HGB Conc 33 % (30-34); Mean Corpuscular Volume 85 fl (79-97); Platelet Count 200 K/mm3 (140-440); Red Blood Count 3.19 M/mm3 (3.65-5.03)
[2020-12-11 06:45] LABS: Blood Urea Nitrogen 33 mg/dL (7-17); Calcium 9.2 mg/dL (8.4-10.2); Hemolysis Index 42
[2020-12-11 06:46] LABS: BUN/Creatinine Ratio 55
[2020-12-11] MEDS: IPRATROPIUM/ALBUTEROL SULFATE 3 ML AMPUL.NEB IH SCH ×3 (07:47→21:00)
[2020-12-11] MEDS: ZINC SULFATE 220 MG CAP PO SCH (09:40)
[2020-12-11] MEDS: hydroCHLOROthiazide 12.5 MG CAP PO SCH (09:40)
[2020-12-11] MEDS: SENNOSIDES/DOCUSATE SODIUM 8.6/50 MG TAB FEEDTUBE SCH ×2 (09:40→22:52)
[2020-12-11] MEDS: ASCORBIC ACID 500 MG TAB PO SCH ×2 (09:40→22:52)
[2020-12-11] MEDS: FAMOTIDINE 20 MG/2 ML INJ IV SCH ×2 (09:41→23:05)
[2020-12-11] MEDS: GABAPENTIN 500 MG/10 ML ORAL LIQD PO SCH ×3 (09:41→22:48)
[2020-12-11] MEDS ORDERED: VANCOMYCIN 2,000 MG in SODIUM CHLORIDE 0.9% 500 ML 500 ML IV ONE ×2 (09:54→12:00)
[2020-12-11] MEDS ORDERED: VANCOMYCIN PHARMACY TO DOSE IV SCH (10:00)
[2020-12-11] MEDS ORDERED: FUROSEMIDE 40 MG/4 ML INJ IV ONE (10:13)
[2020-12-11] MEDS: CEFEPIME/NS 2 GM/100 ML 2 GM/100 ML BAG IV SCH ×2 (11:51→11:52)
[2020-12-11 12:47] LABS: Bacteria,Urine 1+ /HPF (Negative); Bilirubin,Urine NEG (Negative); Blood,Urine SM (Negative); Color,Urine Colorless (Yellow); Mucus,Urine FEW /HPF; Protein,Urine <15 mg/dL mg/dL (Negative); Red Blood Cell Casts,Urine 1 /LPF; Urobilinogen,Urine < 2.0 mg/dL (<2.0); WBC,Urine < 1.0 /HPF (0.0-6.0)
--- NOTE | 2020-12-11 12:54 | Progress Note ---
Assessment and Plan Acute hypoxemic respiratory failure Angioedema Morbid obesity Mild leukocytosis- resolved Hypertension. h/o alpha-gal syndrome s/p Cardiopulmonary arrest with ROSC Negative fluid balance and trial of PSV tomorrow Discussed with the patient and she is agreeable to PSV trials - continue to wean supplemental oxygen for target O2 sats > 92% - continue Daily SAT and SBT assessment as tolerated - VAP bundle addressed - continue lung protective strategies - continue bronchodilators with pulmonary hygiene per RT - wean per pulmonary driven protocols otherwise - continue accuchecks with glycemic control per SSI (While critically ill target blood glucose of 140-180 mg/dL; avoid hypoglycemia) - sedation prn for target RASS -1 to -2, patient has dislodged ETT in the past - avoid nephrotoxins, renally dose all medications - continue to avoid benzodiazepines, reduce the possibility of delirium - prn analgesia per CPOT score - Maintenance of sleep-wake cycle, avoid delirium - continue enteral nutritional support at goal rate as tolerated -Stress ulcer and VTE prophylaxis - PT/OT/ROM exercises - continue mobility protocol, off loading, frequent turning per facility protocol for pressure ulcer prevention - Monitor hemodynamics closely - continue other care per attending / other consultants COVID SPECIFIC INTERVENTIONS - Continue contact and airborne isolation - Remdesivir not indicated as per ID/Pulmonary developed protocols - No steroids secondary to stage of illness and Solumedrol allergy - Anticoagulation per system Protocol based on d-dimer and clinical considerations (VTE prophylaxis) CONDITION: CRITICAL PROGNOSIS: GUARDED CODE STATUS: FULL CODE The high probability of a clinically significant, sudden or life-threatening deterioration of the [respiratory, cardiovascular & immunologic] system(s) required my full and direct attention, intervention and personal management. The aggregate critical care time was [34] minutes without overlap. 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 Patient is seen today for: Acute hypoxemic respiratory failure; Angioedema; Morbid obesity; leukocytosis; HTN; H/O alpha-gal syndrome Seen and examined at bedside; 24hour events reviewed; nursing and respiratory care staff consulted; no adverse overnight events reported to me; resting in bed; remains on MVS; on going fevers, less agitation with Precedex; No vomiting, no diarrhea Objective Vital Signs - 12hr 12/11/20 12/11/20 12/11/20 01:00 01:30 02:00 Temperature Pulse Rate 58 L 58 L 58 L Pulse Rate [ Anterior Bilateral Throughout] Pulse Rate [ From Monitor] Respiratory 20 20 20 Rate Respiratory Rate [Anterior Bilateral Throughout] Blood Pressure 104/44 103/46 104/45 O2 Sat by Pulse 98 98 97 Oximetry 12/11/20 12/11/20 12/11/20 02:30 03:00 03:30 Temperature Pulse Rate 59 L 62 63 Pulse Rate [ Anterior Bilateral Throughout] Pulse Rate [ From Monitor] Respiratory 20 20 20 Rate Respiratory Rate [Anterior Bilateral Throughout] Blood Pressure 102/43 108/50 109/46 O2 Sat by Pulse 97 97 96 Oximetry 12/11/20 12/11/20 12/11/20 03:43 04:00 04:27 Temperature 99.9 F H Pulse Rate 63 62 Pulse Rate [ Anterior Bilateral Throughout] Pulse Rate [ 61 From Monitor] Respiratory 20 Rate Respiratory Rate [Anterior Bilateral Throughout] Blood Pressure 113/48 105/47 O2 Sat by Pulse 97 97 Oximetry 12/11/20 12/11/20 12/11/20 04:30 05:00 05:30 Temperature Pulse Rate 63 60 59 L Pulse Rate [ Anterior Bilateral Throughout] Pulse Rate [ From Monitor] Respiratory 20 20 20 Rate Respiratory Rate [Anterior Bilateral Throughout] Blood Pressure 110/47 106/48 101/45 O2 Sat by Pulse 97 96 96 Oximetry 12/11/20 12/11/20 12/11/20 06:01 06:30 07:00 Temperature Pulse Rate 63 58 L 59 L Pulse Rate [ Anterior Bilateral Throughout] Pulse Rate [ From Monitor] Respiratory 20 20 20 Rate Respiratory Rate [Anterior Bilateral Throughout] Blood Pressure 114/43 109/47 107/48 O2 Sat by Pulse 97 97 97 Oximetry 12/11/20 12/11/20 12/11/20 07:30 07:32 07:50 Temperature Pulse Rate 59 L 66 Pulse Rate [ 113 H Anterior Bilateral Throughout] Pulse Rate [ From Monitor] Respiratory 20 Rate Respiratory 18 Rate [Anterior Bilateral Throughout] Blood Pressure 108/50 108/50 O2 Sat by Pulse 97 96 Oximetry 12/11/20 12/11/20 12/11/20 08:00 08:31 09:00 Temperature 100 F H Pulse Rate 66 76 78 Pulse Rate [ Anterior Bilateral Throughout] Pulse Rate [ From Monitor] Respiratory 15 15 16 Rate Respiratory Rate [Anterior Bilateral Throughout] Blood Pressure 114/51 118/57 116/65 O2 Sat by Pulse 96 95 96 Oximetry 12/11/20 12/11/20 12/11/20 09:30 10:00 10:30 Temperature Pulse Rate 65 73 66 Pulse Rate [ Anterior Bilateral Throughout] Pulse Rate [ From Monitor] Respiratory 16 14 16 Rate Respiratory Rate [Anterior Bilateral Throughout] Blood Pressure 108/48 127/62 111/49 O2 Sat by Pulse 95 96 96 Oximetry 12/11/20 12/11/20 12/11/20 11:00 11:31 11:37 Temperature Pulse Rate 72 67 67 Pulse Rate [ Anterior Bilateral Throughout] Pulse Rate [ From Monitor] Respiratory 16 16 Rate Respiratory Rate [Anterior Bilateral Throughout] Blood Pressure 124/65 122/56 122/56 O2 Sat by Pulse 97 97 97 Oximetry 12/11/20 12/11/20 12/11/20 12:00 12:01 12:30 Temperature 99 F Pulse Rate 74 69 Pulse Rate [ Anterior Bilateral Throughout] Pulse Rate [ From Monitor] Respiratory 17 14 Rate Respiratory Rate [Anterior Bilateral Throughout] Blood Pressure 121/68 120/53 O2 Sat by Pulse 97 96 Oximetry Constitutional: no acute distress (sedated), other (young obese female without increased respiratory effort at rest on MVS) Eyes: non-icteric ENT: oropharynx moist, other (ETT 22 cm JOSELYN, size 6 ETT) Neck: supple, no lymphadenopathy, no JVD, other (large circumference; + healed trach scar) Effort: mildly labored Ascultation: Bilateral: diminished breath sounds, rales (coarse ), rhonchi Percussion: Bilateral: not dull Cardiovascular: regular rate and rhythm, other (S1,S2) Gastrointestinal: normoactive bowel sounds, soft, non-tender, non-distended Integumentary: normal Extremities: no cyanosis, no edema, pink and warm, pulses normal Neurologic: non-focal exam, pupils equal and round, CN II-XII normal, motor strength normal and Psychiatric: other (sedated but rousable) CBC and BMP: 12/13/20 04:52 12/13/20 04:52 ABG, PT/INR, D-dimer: ABG ABG pH 7.517 (7.320-7.450) H 12/11/20 04:00 POC ABG pCO2 35.5 mmHg (32.0-48.0) 12/11/20 04:00 POC ABG pO2 97.6 mmHg (83-108) 12/11/20 04:00 POC ABG HCO3 28.1 12/11/20 04:00 ABG O2 Saturation 97.8 (0-100) 12/11/20 04:00 PT/INR, D-dimer PT 13.9 Sec. (12.2-14.9) 12/07/20 04:00 INR 1.02 (0.87-1.13) 12/07/20 04:00 D-Dimer 1838.21 ng/mlDDU (0-234) H 12/04/20 10:41 Abnormal lab findings: Abnormal Labs 11/29/20 11/29/20 11/29/20 07:48 07:48 07:48 WBC 11.3 H RBC Hgb Hct RDW 18.0 H Lymph % (Auto) [place] # (Auto) Seg Neutrophils % Seg Neuts % (Manual) Lymphocytes % (Manual) Seg Neutrophils # 7.9 H Seg Neutrophils # Man Lymphocytes # (Manual) Monocytes # (Manual) Basophils # (Manual) D-Dimer ABG pH POC ABG pCO2 POC ABG pO2 ABG Hemoglobin ABG Oxyhemoglobin ABG Sodium ABG Potassium ABG Chloride ABG Glucose Carboxyhemoglobin Sodium 135 L Chloride Carbon Dioxide BUN Creatinine Glucose 204 H POC Glucose Calcium Ferritin Lactate Dehydrogenase Total Creatine Kinase CK-MB (CK-2) C-Reactive Protein Total Protein Albumin 3.7 L Arterial Blood Glucose Urine WBC (Auto) Coronavirus (PCR) 11/29/20 11/30/20 11/30/20 11:37 04:27 11:22 WBC RBC Hgb Hct RDW Lymph % (Auto) [place] # (Auto) Seg Neutrophils % Seg Neuts % (Manual) Lymphocytes % (Manual) Seg Neutrophils # Seg Neutrophils # Man Lymphocytes # (Manual) Monocytes # (Manual) Basophils # (Manual) D-Dimer ABG pH 7.318 L POC ABG pCO2 POC ABG pO2 76.1 L 196.4 H ABG Hemoglobin 11.96 L ABG Oxyhemoglobin 92.4 L 98.5 H ABG Sodium 133.7 L ABG Potassium 5.0 H ABG Chloride ABG Glucose 171 H Carboxyhemoglobin 2.5 H Sodium Chloride Carbon Dioxide BUN Creatinine Glucose POC Glucose 157 H Calcium Ferritin Lactate Dehydrogenase Total Creatine Kinase CK-MB (CK-2) C-Reactive Protein Total Protein Albumin Arterial Blood Glucose 171 H Urine WBC (Auto) Coronavirus (PCR) 11/30/20 11/30/20 11/30/20 14:12 17:19 23:42 WBC RBC Hgb Hct RDW Lymph % (Auto) [place] # (Auto) Seg Neutrophils % Seg Neuts % (Manual) Lymphocytes % (Manual) Seg Neutrophils # Seg Neutrophils # Man Lymphocytes # (Manual) Monocytes # (Manual) Basophils # (Manual) D-Dimer ABG pH POC ABG pCO2 POC ABG pO2 ABG Hemoglobin ABG Oxyhemoglobin ABG Sodium ABG Potassium ABG Chloride ABG Glucose Carboxyhemoglobin Sodium Chloride Carbon Dioxide BUN Creatinine Glucose POC Glucose 135 H 121 H Calcium Ferritin Lactate Dehydrogenase Total Creatine Kinase 1132 H CK-MB (CK-2) 14.6 H C-Reactive Protein Total Protein Albumin Arterial Blood Glucose Urine WBC (Auto) Coronavirus (PCR) 12/01/20 12/01/20 12/01/20 03:30 04:21 06:16 WBC RBC Hgb Hct RDW Lymph % (Auto) [place] # (Auto) Seg Neutrophils % Seg Neuts % (Manual) Lymphocytes % (Manual) Seg Neutrophils # Seg Neutrophils # Man Lymphocytes # (Manual) Monocytes # (Manual) Basophils # (Manual) D-Dimer ABG pH POC ABG pCO2 POC ABG pO2 37.6 L 76.2 L ABG Hemoglobin 10.4 L 10.8 L ABG Oxyhemoglobin 76.4 L 93.7 L ABG Sodium 112.8 L 110.9 L ABG Potassium ABG Chloride ABG Glucose 103 H 107 H Carboxyhemoglobin Sodium Chloride Carbon Dioxide BUN Creatinine Glucose POC Glucose 129 H Calcium Ferritin Lactate Dehydrogenase Total Creatine Kinase CK-MB (CK-2) C-Reactive Protein Total Protein Albumin Arterial Blood Glucose 103 H 107 H Urine WBC (Auto) Coronavirus (PCR) 12/02/20 12/02/20 12/02/20 04:00 12:02 17:10 WBC RBC Hgb Hct RDW Lymph % (Auto) [place] # (Auto) Seg Neutrophils % Seg Neuts % (Manual) Lymphocytes % (Manual) Seg Neutrophils # Seg Neutrophils # Man Lymphocytes # (Manual) Monocytes # (Manual) Basophils # (Manual) D-Dimer ABG pH 7.306 L POC ABG pCO2 58.0 H POC ABG pO2 58.5 L ABG Hemoglobin 11.4 L ABG Oxyhemoglobin 86.9 L ABG Sodium 124.7 L ABG Potassium ABG Chloride ABG Glucose 118 H Carboxyhemoglobin Sodium Chloride Carbon Dioxide BUN Creatinine Glucose POC Glucose 143 H 134 H Calcium Ferritin Lactate Dehydrogenase Total Creatine Kinase CK-MB (CK-2) C-Reactive Protein Total Protein Albumin Arterial Blood Glucose 118 H Urine WBC (Auto) Coronavirus (PCR) 12/03/20 12/03/20 12/04/20 05:10 08:00 03:32 WBC RBC Hgb Hct RDW Lymph % (Auto) [place] # (Auto) Seg Neutrophils % Seg Neuts % (Manual) Lymphocytes % (Manual) Seg Neutrophils # Seg Neutrophils # Man Lymphocytes # (Manual) Monocytes # (Manual) Basophils # (Manual) D-Dimer ABG pH 7.272 L POC ABG pCO2 60.1 H 54.6 H POC ABG pO2 82.8 L 78.6 L ABG Hemoglobin 11.4 L ABG Oxyhemoglobin ABG Sodium 132.2 L 130.2 L ABG Potassium ABG Chloride ABG Glucose 166 H 164 H Carboxyhemoglobin 0.4 L Sodium Chloride Carbon Dioxide BUN Creatinine Glucose POC Glucose Calcium Ferritin Lactate Dehydrogenase Total Creatine Kinase CK-MB (CK-2) C-Reactive Protein Total Protein Albumin Arterial Blood Glucose 166 H 164 H Urine WBC (Auto) Coronavirus (PCR) Positive A 12/04/20 12/04/20 12/04/20 05:40 05:40 07:30 WBC 21.7 H RBC Hgb Hct RDW 18.2 H Lymph % (Auto) [place] # (Auto) Seg Neutrophils % Seg Neuts % (Manual) 74.0 H Lymphocytes % (Manual) 2.0 L Seg Neutrophils # Seg Neutrophils # Man 16.1 H Lymphocytes # (Manual) 0.4 L Monocytes # (Manual) 1.1 H Basophils # (Manual) 0.2 H D-Dimer ABG pH POC ABG pCO2 POC ABG pO2 ABG Hemoglobin ABG Oxyhemoglobin ABG Sodium ABG Potassium ABG Chloride ABG Glucose Carboxyhemoglobin Sodium Chloride Carbon Dioxide BUN 26 H Creatinine 1.7 H D Glucose 157 H POC Glucose Calcium Ferritin Lactate Dehydrogenase Total Creatine Kinase CK-MB (CK-2) C-Reactive Protein Total Protein 6.2 L Albumin 2.6 L Arterial Blood Glucose Urine WBC (Auto) > 182.0 H Coronavirus (PCR) 12/04/20 12/04/20 12/04/20 10:41 10:41 10:41 WBC RBC Hgb Hct RDW Lymph % (Auto) [place] # (Auto) Seg Neutrophils % Seg Neuts % (Manual) Lymphocytes % (Manual) Seg Neutrophils # Seg Neutrophils # Man Lymphocytes # (Manual) Monocytes # (Manual) Basophils # (Manual) D-Dimer 1838.21 H ABG pH POC ABG pCO2 POC ABG pO2 ABG Hemoglobin ABG Oxyhemoglobin ABG Sodium ABG Potassium ABG Chloride ABG Glucose Carboxyhemoglobin Sodium Chloride Carbon Dioxide BUN Creatinine Glucose POC Glucose Calcium Ferritin 399.0 H Lactate Dehydrogenase 386 H Total Creatine Kinase CK-MB (CK-2) C-Reactive Protein 34.30 H Total Protein Albumin Arterial Blood Glucose Urine WBC (Auto) Coronavirus (PCR) 12/04/20 12/05/20 12/05/20 23:58 00:10 00:45 WBC RBC Hgb Hct RDW Lymph % (Auto) [place] # (Auto) Seg Neutrophils % Seg Neuts % (Manual) Lymphocytes % (Manual) Seg Neutrophils # Seg Neutrophils # Man Lymphocytes # (Manual) Monocytes # (Manual) Basophils # (Manual) D-Dimer ABG pH POC ABG pCO2 55.5 H POC ABG pO2 ABG Hemoglobin 11.2 L ABG Oxyhemoglobin ABG Sodium 135.0 L ABG Potassium 4.6 H ABG Chloride ABG Glucose 165 H Carboxyhemoglobin Sodium Chloride Carbon Dioxide BUN Creatinine Glucose POC Glucose 134 H 146 H Calcium Ferritin Lactate Dehydrogenase Total Creatine Kinase CK-MB (CK-2) C-Reactive Protein Total Protein Albumin Arterial Blood Glucose 165 H Urine WBC (Auto) Coronavirus (PCR) 12/05/20 12/05/20 12/05/20 11:04 11:04 11:52 WBC 13.0 H RBC 3.61 L Hgb Hct RDW 18.8 H Lymph % (Auto) 13.1 L [place] # (Auto) 0.9 H Seg Neutrophils % 77.6 H Seg Neuts % (Manual) Lymphocytes % (Manual) Seg Neutrophils # 10.0 H Seg Neutrophils # Man Lymphocytes # (Manual) Monocytes # (Manual) Basophils # (Manual) D-Dimer ABG pH POC ABG pCO2 POC ABG pO2 ABG Hemoglobin ABG Oxyhemoglobin ABG Sodium ABG Potassium ABG Chloride ABG Glucose Carboxyhemoglobin Sodium Chloride Carbon Dioxide 31 H BUN 21 H Creatinine Glucose 152 H POC Glucose 121 H Calcium Ferritin Lactate Dehydrogenase Total Creatine Kinase CK-MB (CK-2) C-Reactive Protein Total Protein Albumin Arterial Blood Glucose Urine WBC (Auto) Coronavirus (PCR) 12/05/20 12/05/20 12/06/20 17:31 23:37 04:00 WBC RBC Hgb Hct RDW Lymph % (Auto) [place] # (Auto) Seg Neutrophils % Seg Neuts % (Manual) Lymphocytes % (Manual) Seg Neutrophils # Seg Neutrophils # Man Lymphocytes # (Manual) Monocytes # (Manual) Basophils # (Manual) D-Dimer ABG pH 7.471 H POC ABG pCO2 POC ABG pO2 75.2 L ABG Hemoglobin 10.4 L ABG Oxyhemoglobin ABG Sodium 133.7 L ABG Potassium ABG Chloride ABG Glucose 120 H Carboxyhemoglobin Sodium Chloride Carbon Dioxide BUN Creatinine Glucose POC Glucose 148 H 133 H Calcium Ferritin Lactate Dehydrogenase Total Creatine Kinase CK-MB (CK-2) C-Reactive Protein Total Protein Albumin Arterial Blood Glucose 120 H Urine WBC (Auto) Coronavirus (PCR) 12/06/20 12/06/20 12/06/20 05:07 05:07 05:09 WBC RBC 3.37 L Hgb 9.4 L Hct 28.4 L RDW 18.3 H Lymph % (Auto) [place] # (Auto) Seg Neutrophils % Seg Neuts % (Manual) Lymphocytes % (Manual) Seg Neutrophils # Seg Neutrophils # Man Lymphocytes # (Manual) Monocytes # (Manual) Basophils # (Manual) D-Dimer ABG pH POC ABG pCO2 POC ABG pO2 ABG Hemoglobin ABG Oxyhemoglobin ABG Sodium ABG Potassium ABG Chloride ABG Glucose Carboxyhemoglobin Sodium Chloride Carbon Dioxide 33 H BUN 25 H Creatinine Glucose 131 H POC Glucose 122 H Calcium Ferritin Lactate Dehydrogenase Total Creatine Kinase CK-MB (CK-2) C-Reactive Protein Total Protein Albumin Arterial Blood Glucose Urine WBC (Auto) Coronavirus (PCR) 12/06/20 12/06/20 12/06/20 11:59 16:17 17:30 WBC RBC Hgb Hct RDW Lymph % (Auto) [place] # (Auto) Seg Neutrophils % Seg Neuts % (Manual) Lymphocytes % (Manual) Seg Neutrophils # Seg Neutrophils # Man Lymphocytes # (Manual) Monocytes # (Manual) Basophils # (Manual) D-Dimer ABG pH POC ABG pCO2 61.8 H POC ABG pO2 180.5 H ABG Hemoglobin ABG Oxyhemoglobin ABG Sodium ABG Potassium ABG Chloride ABG Glucose 142 H Carboxyhemoglobin Sodium Chloride Carbon Dioxide BUN Creatinine Glucose POC Glucose 120 H 114 H Calcium Ferritin Lactate Dehydrogenase Total Creatine Kinase CK-MB (CK-2) C-Reactive Protein Total Protein Albumin Arterial Blood Glucose 142 H Urine WBC (Auto) Coronavirus (PCR) 12/06/20 12/07/20 12/07/20 23:09 04:00 04:00 WBC RBC 3.47 L Hgb 9.5 L Hct 29.5 L RDW 18.7 H Lymph % (Auto) [place] # (Auto) Seg Neutrophils % Seg Neuts % (Manual) Lymphocytes % (Manual) Seg Neutrophils # Seg Neutrophils # Man Lymphocytes # (Manual) Monocytes # (Manual) Basophils # (Manual) D-Dimer ABG pH POC ABG pCO2 55.9 H POC ABG pO2 ABG Hemoglobin 11.6 L ABG Oxyhemoglobin ABG Sodium 135.2 L ABG Potassium 4.7 H ABG Chloride ABG Glucose 141 H Carboxyhemoglobin Sodium Chloride Carbon Dioxide BUN Creatinine Glucose POC Glucose 112 H Calcium Ferritin Lactate Dehydrogenase Total Creatine Kinase CK-MB (CK-2) C-Reactive Protein Total Protein Albumin Arterial Blood Glucose 141 H Urine WBC (Auto) Coronavirus (PCR) 12/07/20 12/07/20 12/07/20 05:00 05:28 12:20 WBC RBC Hgb Hct RDW Lymph % (Auto) [place] # (Auto) Seg Neutrophils % Seg Neuts % (Manual) Lymphocytes % (Manual) Seg Neutrophils # Seg Neutrophils # Man Lymphocytes # (Manual) Monocytes # (Manual) Basophils # (Manual) D-Dimer ABG pH POC ABG pCO2 POC ABG pO2 ABG Hemoglobin ABG Oxyhemoglobin ABG Sodium ABG Potassium ABG Chloride ABG Glucose Carboxyhemoglobin Sodium Chloride 96.6 L Carbon Dioxide 35 H BUN 29 H Creatinine Glucose 148 H POC Glucose 139 H 130 H Calcium Ferritin Lactate Dehydrogenase Total Creatine Kinase CK-MB (CK-2) C-Reactive Protein Total Protein Albumin Arterial Blood Glucose Urine WBC (Auto) Coronavirus (PCR) 12/07/20 12/07/20 12/08/20 16:54 23:15 04:00 WBC RBC Hgb Hct RDW Lymph % (Auto) [place] # (Auto) Seg Neutrophils % Seg Neuts % (Manual) Lymphocytes % (Manual) Seg Neutrophils # Seg Neutrophils # Man Lymphocytes # (Manual) Monocytes # (Manual) Basophils # (Manual) D-Dimer ABG pH POC ABG pCO2 53.4 H POC ABG pO2 ABG Hemoglobin 11.4 L ABG Oxyhemoglobin ABG Sodium ABG Potassium ABG Chloride 96.0 L ABG Glucose 149 H Carboxyhemoglobin Sodium Chloride Carbon Dioxide BUN Creatinine Glucose POC Glucose 121 H 166 H Calcium Ferritin Lactate Dehydrogenase Total Creatine Kinase CK-MB (CK-2) C-Reactive Protein Total Protein Albumin Arterial Blood Glucose 149 H Urine WBC (Auto) Coronavirus (PCR) 12/08/20 12/08/20 12/08/20 05:29 08:33 08:33 WBC 11.2 H RBC 3.64 L Hgb Hct 30.2 L RDW 18.1 H Lymph % (Auto) [place] # (Auto) Seg Neutrophils % Seg Neuts % (Manual) Lymphocytes % (Manual) Seg Neutrophils # Seg Neutrophils # Man Lymphocytes # (Manual) Monocytes # (Manual) Basophils # (Manual) D-Dimer ABG pH POC ABG pCO2 POC ABG pO2 ABG Hemoglobin ABG Oxyhemoglobin ABG Sodium ABG Potassium ABG Chloride ABG Glucose Carboxyhemoglobin Sodium Chloride 96.2 L Carbon Dioxide 33 H BUN 31 H Creatinine Glucose 166 H POC Glucose 128 H Calcium 10.3 H Ferritin Lactate Dehydrogenase Total Creatine Kinase CK-MB (CK-2) C-Reactive Protein Total Protein Albumin Arterial Blood Glucose Urine WBC (Auto) Coronavirus (PCR) 12/08/20 12/08/20 12/09/20 11:53 16:46 00:20 WBC RBC Hgb Hct RDW Lymph % (Auto) [place] # (Auto) Seg Neutrophils % Seg Neuts % (Manual) Lymphocytes % (Manual) Seg Neutrophils # Seg Neutrophils # Man Lymphocytes # (Manual) Monocytes # (Manual) Basophils # (Manual) D-Dimer ABG pH POC ABG pCO2 POC ABG pO2 ABG Hemoglobin ABG Oxyhemoglobin ABG Sodium ABG Potassium ABG Chloride ABG Glucose Carboxyhemoglobin Sodium Chloride Carbon Dioxide BUN Creatinine Glucose POC Glucose 170 H 157 H 164 H Calcium Ferritin Lactate Dehydrogenase Total Creatine Kinase CK-MB (CK-2) C-Reactive Protein Total Protein Albumin Arterial Blood Glucose Urine WBC (Auto) Coronavirus (PCR) 12/09/20 12/09/20 12/09/20 04:00 05:07 05:07 WBC 11.4 H RBC 3.53 L Hgb 9.8 L Hct 29.2 L RDW 17.8 H Lymph % (Auto) [place] # (Auto) Seg Neutrophils % Seg Neuts % (Manual) Lymphocytes % (Manual) Seg Neutrophils # Seg Neutrophils # Man Lymphocytes # (Manual) Monocytes # (Manual) Basophils # (Manual) D-Dimer ABG pH POC ABG pCO2 54.4 H POC ABG pO2 ABG Hemoglobin 10.5 L ABG Oxyhemoglobin ABG Sodium ABG Potassium ABG Chloride ABG Glucose 204 H Carboxyhemoglobin Sodium Chloride Carbon Dioxide 33 H BUN 38 H Creatinine Glucose 189 H POC Glucose Calcium Ferritin Lactate Dehydrogenase Total Creatine Kinase CK-MB (CK-2) C-Reactive Protein Total Protein Albumin Arterial Blood Glucose 204 H Urine WBC (Auto) Coronavirus (PCR) 12/09/20 12/09/20 12/09/20 05:30 11:57 17:33 WBC RBC Hgb Hct RDW Lymph % (Auto) [place] # (Auto) Seg Neutrophils % Seg Neuts % (Manual) Lymphocytes % (Manual) Seg Neutrophils # Seg Neutrophils # Man Lymphocytes # (Manual) Monocytes # (Manual) Basophils # (Manual) D-Dimer ABG pH POC ABG pCO2 POC ABG pO2 ABG Hemoglobin ABG Oxyhemoglobin ABG Sodium ABG Potassium ABG Chloride ABG Glucose Carboxyhemoglobin Sodium Chloride Carbon Dioxide BUN Creatinine Glucose POC Glucose 190 H 153 H 180 H Calcium Ferritin Lactate Dehydrogenase Total Creatine Kinase CK-MB (CK-2) C-Reactive Protein Total Protein Albumin Arterial Blood Glucose Urine WBC (Auto) Coronavirus (PCR) 12/10/20 12/10/20 12/10/20 00:28 03:16 05:03 WBC 11.5 H RBC 3.42 L Hgb 9.4 L Hct 29.3 L RDW 17.9 H Lymph % (Auto) [place] # (Auto) Seg Neutrophils % Seg Neuts % (Manual) Lymphocytes % (Manual) Seg Neutrophils # Seg Neutrophils # Man Lymphocytes # (Manual) Monocytes # (Manual) Basophils # (Manual) D-Dimer ABG pH 7.493 H POC ABG pCO2 POC ABG pO2 71.4 L ABG Hemoglobin 9.9 L ABG Oxyhemoglobin ABG Sodium ABG Potassium ABG Chloride ABG Glucose 181 H Carboxyhemoglobin 0.4 L Sodium Chloride Carbon Dioxide BUN Creatinine Glucose POC Glucose 173 H Calcium Ferritin Lactate Dehydrogenase Total Creatine Kinase CK-MB (CK-2) C-Reactive Protein Total Protein Albumin Arterial Blood Glucose 181 H Urine WBC (Auto) Coronavirus (PCR) 12/10/20 12/10/20 12/10/20 05:03 05:48 11:41 WBC RBC Hgb Hct RDW Lymph % (Auto) [place] # (Auto) Seg Neutrophils % Seg Neuts % (Manual) Lymphocytes % (Manual) Seg Neutrophils # Seg Neutrophils # Man Lymphocytes # (Manual) Monocytes # (Manual) Basophils # (Manual) D-Dimer ABG pH POC ABG pCO2 POC ABG pO2 ABG Hemoglobin ABG Oxyhemoglobin ABG Sodium ABG Potassium ABG Chloride ABG Glucose Carboxyhemoglobin Sodium Chloride Carbon Dioxide BUN 34 H Creatinine Glucose 174 H POC Glucose 176 H 203 H Calcium Ferritin Lactate Dehydrogenase Total Creatine Kinase CK-MB (CK-2) C-Reactive Protein Total Protein Albumin Arterial Blood Glucose Urine WBC (Auto) Coronavirus (PCR) 12/10/20 12/10/20 12/11/20 16:32 23:27 04:00 WBC RBC Hgb Hct RDW Lymph % (Auto) [place] # (Auto) Seg Neutrophils % Seg Neuts % (Manual) Lymphocytes % (Manual) Seg Neutrophils # Seg Neutrophils # Man Lymphocytes # (Manual) Monocytes # (Manual) Basophils # (Manual) D-Dimer ABG pH 7.517 H POC ABG pCO2 POC ABG pO2 ABG Hemoglobin 10.0 L ABG Oxyhemoglobin ABG Sodium ABG Potassium ABG Chloride ABG Glucose 175 H Carboxyhemoglobin 0.3 L Sodium Chloride Carbon Dioxide BUN Creatinine Glucose POC Glucose 148 H 186 H Calcium Ferritin Lactate Dehydrogenase Total Creatine Kinase CK-MB (CK-2) C-Reactive Protein Total Protein Albumin Arterial Blood Glucose 175 H Urine WBC (Auto) Coronavirus (PCR) 12/11/20 12/11/20 12/11/20 05:18 06:05 06:05 WBC RBC 3.19 L Hgb 9.0 L Hct 27.1 L RDW 18.0 H Lymph % (Auto) [place] # (Auto) Seg Neutrophils % Seg Neuts % (Manual) Lymphocytes % (Manual) Seg Neutrophils # Seg Neutrophils # Man Lymphocytes # (Manual) Monocytes # (Manual) Basophils # (Manual) D-Dimer ABG pH POC ABG pCO2 POC ABG pO2 ABG Hemoglobin ABG Oxyhemoglobin ABG Sodium ABG Potassium ABG Chloride ABG Glucose Carboxyhemoglobin Sodium Chloride Carbon Dioxide BUN 33 H Creatinine Glucose 158 H POC Glucose 151 H Calcium Ferritin Lactate Dehydrogenase Total Creatine Kinase CK-MB (CK-2) C-Reactive Protein Total Protein Albumin Arterial Blood Glucose Urine WBC (Auto) Coronavirus (PCR) 12/11/20 12:17 WBC RBC Hgb Hct RDW Lymph % (Auto) [place] # (Auto) Seg Neutrophils % Seg Neuts % (Manual) Lymphocytes % (Manual) Seg Neutrophils # Seg Neutrophils # Man Lymphocytes # (Manual) Monocytes # (Manual) Basophils # (Manual) D-Dimer ABG pH POC ABG pCO2 POC ABG pO2 ABG Hemoglobin ABG Oxyhemoglobin ABG Sodium ABG Potassium ABG Chloride ABG Glucose Carboxyhemoglobin Sodium Chloride Carbon Dioxide BUN Creatinine Glucose POC Glucose 163 H Calcium Ferritin Lactate Dehydrogenase Total Creatine Kinase CK-MB (CK-2) C-Reactive Protein Total Protein Albumin Arterial Blood Glucose Urine WBC (Auto) Coronavirus (PCR) Allied health notes reviewed: RT
[2020-12-11] MEDS: MIDAZOLAM 100 MG in SODIUM CHLORIDE 0.9% 80 ML IV SCH (15:25)
--- NOTE | 2020-12-11 16:01 | Progress Note ---
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 Neuro: h/o migraines, peripheral neuropathy -Sedated with fentanyl, Versed, Precedex -Goal RASS 0 to -1 -Avoid delirium -SAT trials when appropriate -Xanax as needed -Scheduled gabapentin -Bilateral restraints for safety Cardio: ST,h/o HTN, s/p hypertensive urgency, s/p cardiac arrest -S/p Cardene drip -Blood pressure monitoring per protocol -Restarted home hydrochlorothiazide; dose decreased re soft BP -S/p respiratory leading to cardiac arrest on 12/06 Resp: Acute hypoxic respiratory failure, severe tracheal stenosis, bronchial asthma exacerbation -Patient was intubated in the emergency department for ventilation support due to severe angioedema -CCM consulted, appreciate recommendations -VAP bundle -Daily SBT trial when appropriate -SPO2 monitoring -Daily CXR and ABG -A.m. vent settings: AC r rate 16, tidal volume 450, PEEP of 8 5% FiO2 -Intubated with 6 oett at 20 at the lips -See RT notes for weaning -Steroids GI: Morbid obesity -Nutrition consulted -Tube feedings at goal -Bowel regimen with Senokot -24-hour net positive 1253 -PPI : Acute kidney injury 2/2 Vasomotor nephropathy -Presented with a BUN/creatinine of 0.8/10 which increased to 1.7/26 on 12/04 but now down trending -Significant output -Daily weights -Avoid nephrotoxic medications -Renally dose medications -Dash -Trend BMP -[facility] will give Lasix today ID: Acute sepsis, hereditary idiopathic angioedema and urticia, Alpha gal syndrome, COVID-19 infection, febrile illness, allergic reaction, Ecoli UTI -Infectious disease consulted, appreciate recommendations -h/o multiple intubations and tracheostomy in the past, patient has multiple allergies -Steroids, Benadryl -Outpatient grill attendant/ENT follow-up upon discharge -Per the patient has been positive for COVID-19 for approximately 20 days prior to admission -ABX per ID: Escalated to cefepime from azithromycin and ceftriaxone -Droplet/agitation precautions -Follow WBC and culture data -Follow fever curve -Per ID no acute therapy indicated given duration since onset for covid Endo: h/o DM type II, hyperglycemia -SSI -Avoid hypoglycemia -BG every 6 Heme: Leukocytosis (resolved) -Trend CBC -Patient on antibiotic therapy and steroids -Bilateral lower extremity Doppler ultrasound completed-> no DVT The high probability of a clinically significant, sudden or life threatening deterioration of the [multi] system(s) required my full and direct attention, intervention and personal management. The aggregate critical care time was [90] minutes. This time is in addition to time spent performing reported procedures but includes the following: [x] Data Review and interpretation [x] Patient assessment and monitoring of vital signs [x] Documentation [x] Medication orders and management Disposition Plan: ICU Total Time Spent with Patient (Minutes): 90 History Interval history: This is a 39-year-old female with HTN, migraines, asthma, peripheral neuropathy, morbid obesity severe tracheal stenosis, idiopathic heredity angioedema and uticaria, alphagal syndrome s/p trach and multiple intubations who presented to emergency department on 11/29 for allergic reaction. Patient was intubated in the emergency department. Per family IV Benadryl, ketamine and Decadron work for spasms and stridor. [facility] Patient is a being admitted to the hospital service with consult to [facility] for acute respiratory failure with hypoxemia secondary to hereditary angioedema and allergic reaction, hypertensive urgency. 11/30: Patient is on vent but awake and communicative. She is anxious. Patient does not know what triggered current recurrence of angioedema. FiO2 35%. Hemodynamically stable. Discussed with nursing staff and the patient, she communicates with writing. 12/01: Patient remains on vent and sedated. Current FiO2 30%. No acute events from overnight reported. Angioedema of face seems to improving. Hemodynamically stable. Pulmonary managing ventilator. Will be extubated when angioedema improved significantly. Discussed with the nursing staff. 12/02/20; Dr. Estrada recommended to initiate transfer to [facility] under the care of patient's ENT surgeon Dr. Carias I called [facility] at [phone] and requested a transfer, discussed in detail with the transfer center nurse Ms. River She she took all the patient's information and added the name of the patient to the list of waiting for ICU transfers and reported that there are no ICU beds available at this point. Would call back, and said she would request for a facesheet I informed the above information to radiological defense officer Dr. Estrada ,ICU charge nurse and the patient's nurse. Will follow up with the transfer process 12/03/2020; [facility] PCR test is positive today reports patient has been Covid positive for the last 20 days without any symptoms Management per guidelines, ID consult 12/03/20 20:18: I called patient's spouse Mr. Manoj Sol at [phone] and discussed in detail patient's condition, treatment plan, tests and reports, efforts to transfer the patient to [facility], however could not be successfully till now due to unavailability of ICU beds at [facility] at this point, he wanted to know the plan of extubation here in the hospital, I encouraged him to call back tomorrow to discuss with pulmonary critical physician Dr. Estrada. I answered all his questions, he also reports that patient Ms. Ebenezer Lynn has been Covid positive for the last 20 days. I encouraged him to call back if she has any new concerns regarding the patient's condition no other treatment. He was appreciative of my call 12/04/2020; Persistent fevers, persistent positive COVID-19 ID consulted, awaiting transfer to [facility] Discussed extensively with patient's yesterday Patient is critically ill ,very poor prognosis 12/05: Patient's updated by [facility], awaiting transfer to [facility]. 12/06:CASSIUS overnight. This evening patient was agitated and bite down on OETT and became hypoxic. Eventually losing her pulse and received ACLS. Dr. Tavo Meeks attempted to update of events but no answer. See code sheet/note for details I updated pt mother over the phone as she questioned about "organ failure" and need for trach. She stated pt and her are against a trach. 12/07: CASSIUS overnight. updated on cardiac arrest yesterday. States that the patient and her would like to avoid a tracheostomy if possible however if emergent tracheostomy is needed then can be performed. Patient and are awaiting visit to [facility] for surgery for tracheal stenosis. Manoj Sol stated that mother in-law Nicole York may be contacted if Manoj is not able to be reached in case of emergency. Her number is [phone] 12/08: Patient with constant agitation and Precedex drip started. 12/09: Patient seems less agitated with addition of Precedex yesterday. Patient remains on ventilatory support and is awaiting transfer to [facility]. 12/10: CASSIUS overnight. neuro consult and LP per CCM, Manoj updated and FT visit with family. Manoj request for visitation for at least extubation. He states that his presence helps with calming the patient down. He also recommends the use of Precedex to aid extubation and states that has worked before. 12/11: Patient still having low-grade temps and will finish cefepime today. Started on Zosyn and pancultured. Plan is to CPAP tomorrow to extubate on Precedex. states pts anxiety kicks in with 1-2 hours post extubation and patint will sate she wants to leave AMA. States she has threatened before. Er ic also stated that if unable to reach Manoj we can call [id number] and she will text him to call back. Hospitalist Physical - Constitutional Vitals: Temp Pulse Resp BP Pulse Ox 99 F 71 17 127/55 97 12/11/20 12:00 12/11/20 15:30 12/11/20 15:30 12/11/20 15:30 12/11/20 15:30 General appearance: Present: no acute distress, well-nourished, obese, other (Intubated on vent, sedated but follows commands) - EENT Eyes: Present: PERRL ENT: hearing intact, dentition normal - Neck Neck: Present: normal ROM - Respiratory Respiratory effort: normal Respiratory: bilateral: diminished - Cardiovascular Rhythm: regular Heart Sounds: Present: S1 & S2. Absent: systolic murmur, diastolic murmur - Extremities Extremities: no ischemia, pulses intact, pulses symmetrical, No edema, normal temperature, normal color Peripheral Pulses: within normal limits - Abdominal General gastrointestinal: soft, non-tender, non-distended, normal bowel sounds - Integumentary Integumentary: Present: warm, dry - Psychiatric Psychiatric: cooperative - Neurologic Neurologic: moves all extremities, other (Sedated, follows commands) - Allied Health Allied health notes reviewed: nursing, RT, social work HEART Score - HEART Score Troponin: Troponin T < 0.010 ng/mL (0.00-0.029) 11/30/20 14:12 Results - Labs CBC & Chem 7: 12/11/20 06:05 12/11/20 06:05 Labs: Laboratory Last Values WBC 10.5 K/mm3 (4.5-11.0) 12/11/20 06:05 RBC 3.19 M/mm3 (3.65-5.03) L 12/11/20 06:05 Hgb 9.0 gm/dl (10.1-14.3) L 12/11/20 06:05 Hct 27.1 % (30.3-42.9) L 12/11/20 06:05 MCV 85 fl (79-97) 12/11/20 06:05 MCH 28 pg (28-32) 12/11/20 06:05 MCHC 33 % (30-34) 12/11/20 06:05 RDW 18.0 % (13.2-15.2) H 12/11/20 06:05 Plt Count 200 K/mm3 (140-440) 12/11/20 06:05 Lymph % (Auto) 13.1 % (13.4-35.0) L 12/05/20 11:04 Mercer % (Auto) 6.7 % (0.0-7.3) 12/05/20 11:04 Eos % (Auto) 2.2 % (0.0-4.3) 12/05/20 11:04 Baso % (Auto) 0.4 % (0.0-1.8) 12/05/20 11:04 Lymph # (Auto) 1.7 K/mm3 (1.2-5.4) 12/05/20 11:04 Mer[place] # (Auto) 0.9 K/mm3 (0.0-0.8) H 12/05/20 11:04 Eos # (Auto) 0.3 K/mm3 (0.0-0.4) 12/05/20 11:04 Baso # (Auto) 0.1 K/mm3 (0.0-0.1) 12/05/20 11:04 Add Manual Diff Complete 12/04/20 05:40 Total Counted 100 12/04/20 05:40 Seg Neutrophils % 77.6 % (40.0-70.0) H 12/05/20 11:04 Seg Neuts % (Manual) 74.0 % (40.0-70.0) H 12/04/20 05:40 Band Neutrophils % 16.0 % 12/04/20 05:40 Lymphocytes % (Manual) 2.0 % (13.4-35.0) L 12/04/20 05:40 Monocytes % (Manual) 5.0 % (0.0-7.3) 12/04/20 05:40 Eosinophils % (Manual) 2.0 % (0.0-4.3) 12/04/20 05:40 Basophils % (Manual) 1.0 % (0.0-1.8) 12/04/20 05:40 Nucleated RBC % Not Reportable 12/04/20 05:40 Seg Neutrophils # 10.0 K/mm3 (1.8-7.7) H 12/05/20 11:04 Seg Neutrophils # Man 16.1 K/mm3 (1.8-7.7) H 12/04/20 05:40 Band Neutrophils # 3.5 K/mm3 12/04/20 05:40 Lymphocytes # (Manual) 0.4 K/mm3 (1.2-5.4) L 12/04/20 05:40 Abs React Lymphs (Man) 0.0 K/mm3 12/04/20 05:40 Monocytes # (Manual) 1.1 K/mm3 (0.0-0.8) H 12/04/20 05:40 Eosinophils # (Manual) 0.4 K/mm3 (0.0-0.4) 12/04/20 05:40 Basophils # (Manual) 0.2 K/mm3 (0.0-0.1) H 12/04/20 05:40 Metamyelocytes # 0.0 K/mm3 12/04/20 05:40 Myelocytes # 0.0 K/mm3 12/04/20 05:40 Promyelocytes # 0.0 K/mm3 12/04/20 05:40 Blast Cells # 0.0 K/mm3 12/04/20 05:40 WBC Morphology Not Reportable 12/04/20 05:40 Hypersegmented Neuts Not Reportable 12/04/20 05:40 Hyposegmented Neuts Not Reportable 12/04/20 05:40 Hypogranular Neuts Not Reportable 12/04/20 05:40 Smudge Cells Not Reportable 12/04/20 05:40 Toxic Granulation Not Reportable 12/04/20 05:40 Toxic Vacuolation Not Reportable 12/04/20 05:40 Dohle Bodies Not Reportable 12/04/20 05:40 Pelger-Huet Anomaly Not Reportable 12/04/20 05:40 Solomon Rods Not Reportable 12/04/20 05:40 Platelet Estimate Not Reportable 12/04/20 05:40 Clumped Platelets 1+ 12/04/20 05:40 Plt Clumps, EDTA Not Reportable 12/04/20 05:40 Large Platelets Not Reportable 12/04/20 05:40 Giant Platelets Not Reportable 12/04/20 05:40 Platelet Satelliting Not Reportable 12/04/20 05:40 Plt Morphology Comment Not Reportable 12/04/20 05:40 RBC Morphology Normal 12/04/20 05:40 Dimorphic RBCs Not Reportable 12/04/20 05:40 Polychromasia Not Reportable 12/04/20 05:40 Hypochromasia Not Reportable 12/04/20 05:40 Poikilocytosis Not Reportable 12/04/20 05:40 Anisocytosis Not Reportable 12/04/20 05:40 Microcytosis Not Reportable 12/04/20 05:40 Macrocytosis Not Reportable 12/04/20 05:40 Spherocytes Not Reportable 12/04/20 05:40 Pappenheimer Bodies Not Reportable 12/04/20 05:40 Sickle Cells Not Reportable 12/04/20 05:40 Target Cells Not Reportable 12/04/20 05:40 Tear Drop Cells Not Reportable 12/04/20 05:40 Ovalocytes Not Reportable 12/04/20 05:40 Helmet Cells Not Reportable 12/04/20 05:40 [place] Bodies Not Reportable 12/04/20 05:40 Raysal Rings Not Reportable 12/04/20 05:40 [place] Cells Not Reportable 12/04/20 05:40 Bite Cells Not Reportable 12/04/20 05:40 Crenated Cell Not Reportable 12/04/20 05:40 Elliptocytes Not Reportable 12/04/20 05:40 Acanthocytes (Spur) Not Reportable 12/04/20 05:40 Rouleaux Not Reportable 12/04/20 05:40 Hemoglobin C Crystals Not Reportable 12/04/20 05:40 Schistocytes Not Reportable 12/04/20 05:40 Malaria parasites Not Reportable 12/04/20 05:40 Charanjit Bodies Not Reportable 12/04/20 05:40 Hem Pathologist Commnt No 12/04/20 05:40 PT 13.9 Sec. (12.2-14.9) 12/07/20 04:00 INR 1.02 (0.87-1.13) 12/07/20 04:00 D-Dimer 1838.21 ng/mlDDU (0-234) H 12/04/20 10:41 ABG pH 7.517 (7.320-7.450) H 12/11/20 04:00 POC ABG pCO2 35.5 mmHg (32.0-48.0) 12/11/20 04:00 POC ABG pO2 97.6 mmHg (83-108) 12/11/20 04:00 POC ABG HCO3 28.1 12/11/20 04:00 ABG O2 Saturation 97.8 (0-100) 12/11/20 04:00 POC ABG Base Excess 5.1 12/11/20 04:00 ABG Hemoglobin 10.0 (12.0-17.5) L 12/11/20 04:00 ABG Oxyhemoglobin 97.2 (94-98) 12/11/20 04:00 ABG Methemoglobin 0.3 (0.0-1.5) 12/11/20 04:00 ABG Sodium 137.0 mmol/L (136.0-145.0) 12/11/20 04:00 ABG Potassium 3.9 mmol/L (3.40-4.50) 12/11/20 04:00 ABG Chloride 102.0 mmol/L (98-107) 12/11/20 04:00 ABG Glucose 175 mg/dL (65-95) H 12/11/20 04:00 Carboxyhemoglobin 0.3 (0.5-1.5) L 12/11/20 04:00 FiO2 % 45.0 12/11/20 04:00 Sodium 139 mmol/L (137-145) 12/11/20 06:05 Potassium 4.4 mmol/L (3.6-5.0) 12/11/20 06:05 Chloride 101.3 mmol/L (98-107) 12/11/20 06:05 Carbon Dioxide 28 mmol/L (22-30) 12/11/20 06:05 Anion Gap 14 mmol/L 12/11/20 06:05 BUN 33 mg/dL (7-17) H 12/11/20 06:05 Creatinine 0.6 mg/dL (0.6-1.2) 12/11/20 06:05 Estimated GFR > 60 ml/min 12/11/20 06:05 BUN/Creatinine Ratio 55 % 12/11/20 06:05 Glucose 158 mg/dL (65-100) H 12/11/20 06:05 POC Glucose 163 mg/dL (70-105) H 12/11/20 12:17 Calcium 9.2 mg/dL (8.4-10.2) 12/11/20 06:05 Phosphorus 3.60 mg/dL (2.5-4.5) 12/11/20 06:05 Magnesium 2.10 mg/dL (1.7-2.3) 12/11/20 06:05 Ferritin 399.0 ng/mL (10.0-200.0) H 12/04/20 10:41 Total Bilirubin 0.30 mg/dL (0.1-1.2) 12/04/20 05:40 Direct Bilirubin < 0.2 mg/dL (0-0.2) 11/29/20 07:48 Indirect Bilirubin 0.0 mg/dL 11/29/20 07:48 AST 19 units/L (5-40) 12/04/20 05:40 ALT 28 units/L (7-56) 12/04/20 05:40 Alkaline Phosphatase 93 units/L (35-129) 12/04/20 05:40 Lactate Dehydrogenase 386 units/L (91-180) H 12/04/20 10:41 Total Creatine Kinase 1132 units/L (30-135) H 11/30/20 14:12 CK-MB (CK-2) 14.6 ng/mL (0.0-4.0) H 11/30/20 14:12 CK-MB (CK-2) Rel Index 1.2 (0-4) 11/30/20 14:12 Troponin T < 0.010 ng/mL (0.00-0.029) 11/30/20 14:12 C-Reactive Protein 34.30 mg/dL (0.00-1.30) H 12/04/20 10:41 Total Protein 6.2 g/dL (6.3-8.2) L 12/04/20 05:40 Albumin 2.6 g/dL (3.9-5) L 12/04/20 05:40 Albumin/Globulin Ratio 0.7 % 12/04/20 05:40 HCG, Qual Negative (Negative) 11/29/20 07:48 Arterial Blood Glucose 175 mg/dL (65-95) H 12/11/20 04:00 Arterial Blood Ionized Calcium 4.7 mg/dL (4.6-5.3) 12/11/20 04:00 Urine Color Colorless (Yellow) 12/11/20 12:22 Urine Turbidity Clear (Clear) 12/11/20 12:22 Urine pH 5.0 (5.0-7.0) 12/11/20 12:22 Ur Specific [place] 1.005 (1.003-1.030) 12/11/20 12:22 Urine Protein <15 mg/dl mg/dL (Negative) 12/11/20 12:22 Urine Glucose (UA) Neg mg/dL (Negative) 12/11/20 12:22 Urine Ketones Neg mg/dL (Negative) 12/11/20 12:22 Urine Blood Sm (Negative) 12/11/20 12:22 Urine Nitrite Neg (Negative) 12/11/20 12:22 Urine Bilirubin Neg (Negative) 12/11/20 12:22 Urine Urobilinogen < 2.0 mg/dL (<2.0) 12/11/20 12:22 Ur Leukocyte Esterase Neg (Negative) 12/11/20 12:22 Urine WBC (Auto) < 1.0 /HPF (0.0-6.0) 12/11/20 12:22 Urine RBC (Auto) 11.0 /HPF (0.0-6.0) 12/11/20 12:22 U Epithel Cells (Auto) 1.0 /HPF (0-13.0) 12/11/20 12:22 Urine Bacteria (Auto) 1+ /HPF (Negative) 12/11/20 12:22 Urine WBC Clumps 3+ /HPF 12/04/20 07:30 RBC Casts 1 /LPF 12/11/20 12:22 WBC Casts 17 /LPF 12/04/20 07:30 Urine Mucus Few /HPF 12/11/20 12:22 Coronavirus (PCR) Positive (Negative) A 12/03/20 08:00 Microbiology: Microbiology 12/11/20 12:54 Peripheral/Venous Blood Culture - Preliminary Culture in Progress 12/11/20 12:54 Peripheral/Venous Blood Culture - Preliminary Culture in Progress Dash/IV: Voiding Method Indwelling Catheter Active Medications - Current Medications Current Medications: Generic Name Dose Route Start Last Admin Trade Name Freq PRN Reason Stop Dose Admin Acetaminophen 650 mg 12/04/20 00:39 12/10/20 05:24 Acetaminophen 325 Mg Tab PO 650 mg Q6H PRN Administration Fever >101 Albuterol 2.5 mg 11/29/20 15:22 Albuterol 2.5 Mg/3 Ml Nebu IH Q4HRT PRN Shortness Of Breath Albuterol/Ipratropium 1 ampul 12/07/20 20:00 12/11/20 07:47 Ipratropium/Albuterol Sulfate 3 Ml Ampul.Neb IH 1 ampul Q12HRT KRYSTAL Administration Lipase/Protease/Amylase 1 each 11/29/20 15:23 Lipase 10,500/Protease 25,000/Amylase 43,750 (Units) Dr Ariza FEEDTUBE PRN PRN For Clogged Feeding Tube Ascorbic Acid 500 mg 12/04/20 22:00 12/11/20 09:40 Ascorbic Acid 500 Mg Tab PO 500 mg BID KRYSTAL Administration Dextrose 50 ml 12/05/20 10:34 Dextrose 50% In Water (25gm) 50 Ml Syringe IV Q30MIN PRN Hypoglycemia Protocol Famotidine 20 mg 11/30/20 15:00 12/11/20 09:41 Famotidine 20 Mg/2 Ml Inj IV 20 mg BID KRYSTAL Administration Fentanyl 50 mcg 11/29/20 10:22 Fentanyl 100 Mcg/2 Ml Inj IV Q10MIN PRN ANALGESIA Fondaparinux 2.5 mg 11/29/20 22:00 12/10/20 23:04 Fondaparinux 2.5 Mg/0.5 Ml Inj SUB-Q 2.5 mg Q24H KRYSTAL Administration Gabapentin 600 mg 11/30/20 17:00 12/11/20 09:58 Gabapentin 500 Mg/10 Ml Oral Liqd PO 600 mg BID KRYSTAL Administration Hydrochlorothiazide 12.5 mg 12/10/20 10:00 12/11/20 09:40 Hydrochlorothiazide 12.5 Mg Cap PO 12.5 mg QDAY KRYSTAL Administration Hydrophilic Ointment 1 applic 12/01/20 08:54 Lip Therapy Vaseline TP Q2HR PRN Dry Lips Midazolam HCl 100 mg/ Sodium 100 mls @ 2 mls/hr 11/29/20 12:00 12/11/20 15:25 Chloride IV 5 mg/hr TITR KRYSTAL 5 mls/hr Administration Protocol 2 MG/HR Fentanyl Citrate 2,000 mcg in 100 mls @ 6.45 mls/hr 11/29/20 12:30 12/11/20 1 5:46 Fentanyl Drip Premix IV 4 mcg/kg/hr TITR KRYSTAL 25.8 mls/hr Administration Protocol 1 MCG/KG/HR Dexmedetomidine HCl 400 mcg/ 104 mls @ 6.885 mls/hr 12/08/20 16:00 12/11/20 14:08 Sodium Chloride IV 0.5 mcg/kg/hr TITRATE KRYSTAL 17.212 mls/hr Administration Protocol 0.2 MCG/KG/HR Propofol 1,000 mg in 100 mls @ 3.972 mls/hr 12/08/20 19:00 Diprivan 10 Mg/Ml IV TITR KRYSTAL Protocol 5 MCG/KG/MIN Vancomycin HCl 1,500 mg/ 530 mls @ 333.333 mls/hr 12/11/20 20:00 Sodium Chloride IV Q8H KRYSTAL Insulin Human Regular 0 units 12/05/20 12:00 12/11/20 12:30 Insulin Regular, Human 100 Units/1 Ml SUB-Q 1 units Q6HR KRYSTAL Administration Protocol Midazolam HCl 2 mg 11/29/20 10:22 12/08/20 18:35 Midazolam 2 Mg/2 Ml Inj IV 2 mg Q10MIN PRN Administration Sedation Montelukast Sodium 10 mg 11/29/20 22:00 12/10/20 23:05 Montelukast 10 Mg Tab PO 10 mg HS KRYSTAL Administration Multi-Ingred Cream/Lotion/Oil/Oint 1 applic 12/01/20 08:54 Mineral Oil/Petrolatum, White Ophth Oint 3.5 Gm OU Q4HR PRN Dry Eye(s) Senna/Docusate Sodium 1 tab 11/29/20 10:00 12/11/20 09:40 Sennosides/Docusate Sodium 8.6/50 Mg Tab FEEDTUBE 1 tab BID KRYSTAL Administration Simple Syrup 15 ml 11/29/20 15:23 Simple Syrup 15 Ml FEEDTUBE PRN PRN Hypoglycemia Simple Syrup 30 ml 11/29/20 15:23 Simple Syrup 15 Ml FEEDTUBE PRN PRN Hypoglycemia Sodium Bicarbonate 325 mg 11/29/20 15:23 Sodium Bicarbonate 325 Mg Tab FEEDTUBE PRN PRN For Clogged Feeding Tube Zinc Sulfate 220 mg 12/05/20 10:00 12/11/20 09:40 Zinc Sulfate 220 Mg Cap PO 220 mg QDAY KRYSTAL Administration Nutrition/Malnutrition Assess - Dietary Evaluation Nutrition/Malnutrition Findings: Nutrition Notes Start: 11/30/20 09:03 Freq: Status: Active Protocol: Document 12/07/20 10:14 (Rec: 12/07/20 10:17 [id number]) Nutrition Notes Initial or Follow up Reassessment Current Diagnosis Respiratory Failure Other Pertinent Diagnosis allergic reaction, alpha gal, hx HTN Current Diet Vital HP at 65 ml/hr Labs/Tests BUN 29 BG 148 Pertinent Medications Reviewed Height 5 ft 6 in Weight 132.4 kg [place] Body Weight (kg) 59.09 BMI 47.1 Weight Status Morbidly Obese Subjective/Other Information Pt suffered code blue yesterday. RN reports TF at goal and pt tolerating. Percent of energy/protein needs met: 84%/91% Burn Absent Trauma Absent Difficulty In Swallowing Current % PO Negligible Minimum of two criteria No Fluid Accumulation Mild (non-severe) #1 Nutrition Diagnosis Inadequate oral intake Diagnosis Progress(for reassessment Continues documentation) Is patient on ventilator? Yes Is Patient Ambulatory and/or Out of Bed No REE-([place]-confined to bed) 2421.060 Kcal/Kg value to use for calculation 14 Approximate Energy Requirements Using 1854 kcal/Kg Calculation Used for Recommendations Kcal/kg Additional Notes Protein needs: 2.5 g/kg IBW , 148 g Fluid needs: 1ml/kcal Nutrition Intervention Change Diet Order: continue Nutrition Support: Vital High Protein at 65 ml/hr flush 45 ml q4h Kcal 1,560 Protein (gm) 135 Fluid (mL) 1,304 Goal #1 Meet at least 75% of protein and kcal needs via TF Anticipated Discharge Needs: Unable to determine at this time Follow-Up By: 12/13/20 Additional Comments F/u: TF tolerance <IZABELLA MEEKS - Last Filed: 12/13/20 09:09> History Interval history: I saw and evaluated the patient. Discussed with the nurse practitioner and agree with their findings and plan as documented in this note. Hospitalist Physical - Constitutional Vitals: Temp Pulse Resp BP Pulse Ox 98.9 F 92 H 16 133/73 98 12/13/20 07:00 12/13/20 08:19 12/13/20 08:19 12/13/20 08:19 12/13/20 08:19 HEART Score - HEART Score Troponin: Troponin T < 0.010 ng/mL (0.00-0.029) 11/30/20 14:12 Results - Labs CBC & Chem 7: 12/13/20 04:52 12/13/20 04:52 Labs: Laboratory Last Values WBC 9.1 K/mm3 (4.5-11.0) 12/13/20 04:52 RBC 3.24 M/mm3 (3.65-5.03) L 12/13/20 04:52 Hgb 9.0 gm/dl (10.1-14.3) L 12/13/20 04:52 Hct 27.6 % (30.3-42.9) L 12/13/20 04:52 MCV 85 fl (79-97) 12/13/20 04:52 MCH 28 pg (28-32) 12/13/20 04:52 MCHC 33 % (30-34) 12/13/20 04:52 RDW 17.9 % (13.2-15.2) H 12/13/20 04:52 Plt Count 222 K/mm3 (140-440) 12/13/20 04:52 Lymph % (Auto) 13.1 % (13.4-35.0) L 12/05/20 11:04 [place] % (Auto) 6.7 % (0.0-7.3) 12/05/20 11:04 Eos % (Auto) 2.2 % (0.0-4.3) 12/05/20 11:04 Baso % (Auto) 0.4 % (0.0-1.8) 12/05/20 11:04 Lymph # (Auto) 1.7 K/mm3 (1.2-5.4) 12/05/20 11:04 [place] # (Auto) 0.9 K/mm3 (0.0-0.8) H 12/05/20 11:04 Eos # (Auto) 0.3 K/mm3 (0.0-0.4) 12/05/20 11:04 Baso # (Auto) 0.1 K/mm3 (0.0-0.1) 12/05/20 11:04 Add Manual Diff Complete 12/04/20 05:40 Total Counted 100 12/04/20 05:40 Seg Neutrophils % 77.6 % (40.0-70.0) H 12/05/20 11:04 Seg Neuts % (Manual) 74.0 % (40.0-70.0) H 12/04/20 05:40 Band Neutrophils % 16.0 % 12/04/20 05:40 Lymphocytes % (Manual) 2.0 % (13.4-35.0) L 12/04/20 05:40 Monocytes % (Manual) 5.0 % (0.0-7.3) 12/04/20 05:40 Eosinophils % (Manual) 2.0 % (0.0-4.3) 12/04/20 05:40 Basophils % (Manual) 1.0 % (0.0-1.8) 12/04/20 05:40 Nucleated RBC % Not Reportable 12/04/20 05:40 Seg Neutrophils # 10.0 K/mm3 (1.8-7.7) H 12/05/20 11:04 Seg Neutrophils # Man 16.1 K/mm3 (1.8-7.7) H 12/04/20 05:40 Band Neutrophils # 3.5 K/mm3 12/04/20 05:40 Lymphocytes # (Manual) 0.4 K/mm3 (1.2-5.4) L 12/04/20 05:40 Abs React Lymphs (Man) 0.0 K/mm3 12/04/20 05:40 Monocytes # (Manual) 1.1 K/mm3 (0.0-0.8) H 12/04/20 05:40 Eosinophils # (Manual) 0.4 K/mm3 (0.0-0.4) 12/04/20 05:40 Basophils # (Manual) 0.2 K/mm3 (0.0-0.1) H 12/04/20 05:40 Metamyelocytes # 0.0 K/mm3 12/04/20 05:40 Myelocytes # 0.0 K/mm3 12/04/20 05:40 Promyelocytes # 0.0 K/mm3 12/04/20 05:40 Blast Cells # 0.0 K/mm3 12/04/20 05:40 WBC Morphology Not Reportable 12/04/20 05:40 Hypersegmented Neuts Not Reportable 12/04/20 05:40 Hyposegmented Neuts Not Reportable 12/04/20 05:40 Hypogranular Neuts Not Reportable 12/04/20 05:40 Smudge Cells Not Reportable 12/04/20 05:40 Toxic Granulation Not Reportable 12/04/20 05:40 Toxic Vacuolation Not Reportable 12/04/20 05:40 Dohle Bodies Not Reportable 12/04/20 05:40 Pelger-Huet Anomaly Not Reportable 12/04/20 05:40 Solomon Rods Not Reportable 12/04/20 05:40 Platelet Estimate Not Reportable 12/04/20 05:40 Clumped Platelets 1+ 12/04/20 05:40 Plt Clumps, EDTA Not Reportable 12/04/20 05:40 Large Platelets Not Reportable 12/04/20 05:40 Giant Platelets Not Reportable 12/04/20 05:40 Platelet Satelliting Not Reportable 12/04/20 05:40 Plt Morphology Comment Not Reportable 12/04/20 05:40 RBC Morphology Normal 12/04/20 05:40 Dimorphic RBCs Not Reportable 12/04/20 05:40 Polychromasia Not Reportable 12/04/20 05:40 Hypochromasia Not Reportable 12/04/20 05:40 Poikilocytosis Not Reportable 12/04/20 05:40 Anisocytosis Not Reportable 12/04/20 05:40 Microcytosis Not Reportable 12/04/20 05:40 Macrocytosis Not Reportable 12/04/20 05:40 Spherocytes Not Reportable 12/04/20 05:40 Pappenheimer Bodies Not Reportable 12/04/20 05:40 Sickle Cells Not Reportable 12/04/20 05:40 Target Cells Not Reportable 12/04/20 05:40 Tear Drop Cells Not Reportable 12/04/20 05:40 Ovalocytes Not Reportable 12/04/20 05:40 Helmet Cells Not Reportable 12/04/20 05:40 [place] Bodies Not Reportable 12/04/20 05:40 Raysal Rings Not Reportable 12/04/20 05:40 Paulo Cells Not Reportable 12/04/20 05:40 Bite Cells Not Reportable 12/04/20 05:40 Crenated Cell Not Reportable 12/04/20 05:40 Elliptocytes Not Reportable 12/04/20 05:40 Acanthocytes (Spur) Not Reportable 12/04/20 05:40 Rouleaux Not Reportable 12/04/20 05:40 Hemoglobin C Crystals Not Reportable 12/04/20 05:40 Schistocytes Not Reportable 12/04/20 05:40 Malaria parasites Not Reportable 12/04/20 05:40 Charanjit Bodies Not Reportable 12/04/20 05:40 Hem Pathologist Commnt No 12/04/20 05:40 PT 13.9 Sec. (12.2-14.9) 12/07/20 04:00 INR 1.02 (0.87-1.13) 12/07/20 04:00 D-Dimer 1838.21 ng/mlDDU (0-234) H 12/04/20 10:41 ABG pH 7.453 (7.320-7.450) H 12/12/20 04:00 POC ABG pCO2 41.4 mmHg (32.0-48.0) 12/12/20 04:00 POC ABG pO2 79.3 mmHg (83-108) L 12/12/20 04:00 POC ABG HCO3 28.3 12/12/20 04:00 ABG O2 Saturation 95.5 (0-100) 12/12/20 04:00 POC ABG Base Excess 4.0 12/12/20 04:00 ABG Hemoglobin 9.3 (12.0-17.5) L 12/12/20 04:00 ABG Oxyhemoglobin 94.7 (94-98) 12/12/20 04:00 ABG Methemoglobin 0.3 (0.0-1.5) 12/12/20 04:00 ABG Sodium 139.0 mmol/L (136.0-145.0) 12/12/20 04:00 ABG Potassium 4.1 mmol/L (3.40-4.50) 12/12/20 04:00 ABG Chloride 102.0 mmol/L (98-107) 12/12/20 04:00 ABG Glucose 159 mg/dL (65-95) H 12/12/20 04:00 Carboxyhemoglobin 0.5 (0.5-1.5) 12/12/20 04:00 FiO2 % 40.0 12/12/20 04:00 Sodium 138 mmol/L (137-145) 12/13/20 04:52 Potassium 4.4 mmol/L (3.6-5.0) 12/13/20 04:52 Chloride 102.2 mmol/L (98-107) 12/13/20 04:52 Carbon Dioxide 30 mmol/L (22-30) 12/13/20 04:52 Anion Gap 10 mmol/L 12/13/20 04:52 BUN 27 mg/dL (7-17) H 12/13/20 04:52 Creatinine 0.6 mg/dL (0.6-1.2) 12/13/20 04:52 Estimated GFR > 60 ml/min 12/13/20 04:52 BUN/Creatinine Ratio 45 % 12/13/20 04:52 Glucose 157 mg/dL (65-100) H 12/13/20 04:52 POC Glucose 176 mg/dL (70-105) H 12/13/20 05:22 Calcium 9.0 mg/dL (8.4-10.2) 12/13/20 04:52 Phosphorus TNR 12/12/20 14:33 Magnesium 2.10 mg/dL (1.7-2.3) 12/11/20 06:05 Ferritin 399.0 ng/mL (10.0-200.0) H 12/04/20 10:41 Total Bilirubin 0.30 mg/dL (0.1-1.2) 12/13/20 04:52 Direct Bilirubin < 0.2 mg/dL (0-0.2) 11/29/20 07:48 Indirect Bilirubin 0.0 mg/dL 11/29/20 07:48 AST 16 units/L (5-40) 12/13/20 04:52 ALT 28 units/L (7-56) 12/13/20 04:52 Alkaline Phosphatase 59 units/L (35-129) 12/13/20 04:52 Lactate Dehydrogenase 386 units/L (91-180) H 12/04/20 10:41 Total Creatine Kinase 1132 units/L (30-135) H 11/30/20 14:12 CK-MB (CK-2) 14.6 ng/mL (0.0-4.0) H 11/30/20 14:12 CK-MB (CK-2) Rel Index 1.2 (0-4) 11/30/20 14:12 Troponin T < 0.010 ng/mL (0.00-0.029) 11/30/20 14:12 C-Reactive Protein 34.30 mg/dL (0.00-1.30) H 12/04/20 10:41 Total Protein 6.5 g/dL (6.3-8.2) 12/13/20 04:52 Albumin 2.9 g/dL (3.9-5) L 12/13/20 04:52 Albumin/Globulin Ratio 0.8 % 12/13/20 04:52 HCG, Qual Negative (Negative) 11/29/20 07:48 Arterial Blood Glucose 159 mg/dL (65-95) H 12/12/20 04:00 Arterial Blood Ionized Calcium 4.8 mg/dL (4.6-5.3) 12/12/20 04:00 Urine Color Colorless (Yellow) 12/11/20 12:22 Urine Turbidity Clear (Clear) 12/11/20 12:22 Urine pH 5.0 (5.0-7.0) 12/11/20 12:22 Ur Specific [place] 1.005 (1.003-1.030) 12/11/20 12:22 Urine Protein <15 mg/dl mg/dL (Negative) 12/11/20 12:22 Urine Glucose (UA) Neg mg/dL (Negative) 12/11/20 12:22 Urine Ketones Neg mg/dL (Negative) 12/11/20 12:22 Urine Blood Sm (Negative) 12/11/20 12:22 Urine Nitrite Neg (Negative) 12/11/20 12:22 Urine Bilirubin Neg (Negative) 12/11/20 12:22 Urine Urobilinogen < 2.0 mg/dL (<2.0) 12/11/20 12:22 Ur Leukocyte Esterase Neg (Negative) 12/11/20 12:22 Urine WBC (Auto) < 1.0 /HPF (0.0-6.0) 12/11/20 12:22 Urine RBC (Auto) 11.0 /HPF (0.0-6.0) 12/11/20 12:22 U Epithel Cells (Auto) 1.0 /HPF (0-13.0) 12/11/20 12:22 Urine Bacteria (Auto) 1+ /HPF (Negative) 12/11/20 12:22 Urine WBC Clumps 3+ /HPF 12/04/20 07:30 RBC Casts 1 /LPF 12/11/20 12:22 WBC Casts 17 /LPF 12/04/20 07:30 Urine Mucus Few /HPF 12/11/20 12:22 Vancomycin Trough 30.6 ug/mL (5.0-20.0) H 12/12/20 18:47 Coronavirus (PCR) Positive (Negative) A 12/03/20 08:00 Microbiology: Microbiology 12/11/20 12:54 Peripheral/Venous Blood Culture - Preliminary NO GROWTH AFTER 24 HOURS 12/11/20 12:54 Peripheral/Venous Blood Culture - Preliminary NO GROWTH AFTER 24 HOURS 12/11/20 09:56 Urine,Dash Port Urine Culture - Preliminary NO GROWTH AFTER 24 HOURS Dash/IV: Voiding Method Indwelling Catheter Active Medications - Current Medications Current Medications: Generic Name Dose Route Start Last Admin Trade Name Freq PRN Reason Stop Dose Admin Acetaminophen 650 mg 12/04/20 00:39 12/10/20 05:24 Acetaminophen 325 Mg Tab PO 650 mg Q6H PRN Administration Fever >101 Albuterol 2.5 mg 11/29/20 15:22 Albuterol 2.5 Mg/3 Ml Nebu IH Q4HRT PRN Shortness Of Breath Albuterol/Ipratropium 1 ampul 12/07/20 20:00 12/13/20 08:24 Ipratropium/Albuterol Sulfate 3 Ml Ampul.Neb IH 1 ampul Q12HRT KRYSTAL Administration Lipase/Protease/Amylase 1 each 11/29/20 15:23 Lipase 10,500/Protease 25,000/Amylase 43,750 (Units) Dr Cap FEEDTUBE PRN PRN For Clogged Feeding Tube Ascorbic Acid 500 mg 12/04/20 22:00 12/12/20 22:01 Ascorbic Acid 500 Mg Tab PO 500 mg BID KRYSTAL Administration Dextrose 50 ml 12/05/20 10:34 Dextrose 50% In Water (25gm) 50 Ml Syringe IV Q30MIN PRN Hypoglycemia Protocol Famotidine 20 mg 11/30/20 15:00 12/12/20 23:45 Famotidine 20 Mg/2 Ml Inj IV 20 mg BID KRYSTAL Administration Fentanyl 50 mcg 11/29/20 10:22 Fentanyl 100 Mcg/2 Ml Inj IV Q10MIN PRN ANALGESIA Fondaparinux 2.5 mg 11/29/20 22:00 12/12/20 22:01 Fondaparinux 2.5 Mg/0.5 Ml Inj SUB-Q 2.5 mg Q24H KRYSTAL Administration Gabapentin 600 mg 11/30/20 17:00 12/12/20 23:45 Gabapentin 500 Mg/10 Ml Oral Liqd PO 600 mg BID KRYSTAL Administration Hydrochlorothiazide 12.5 mg 12/10/20 10:00 12/12/20 09:38 Hydrochlorothiazide 12.5 Mg Cap PO 12.5 mg QDAY KRYSTAL Administration Hydrophilic Ointment 1 applic 12/01/20 08:54 Lip Therapy Vaseline TP Q2HR PRN Dry Lips Midazolam HCl 100 mg/ Sodium 100 mls @ 2 mls/hr 11/29/20 12:00 12/13/20 04:06 Chloride IV 4 mg/hr TITR KRYSTAL 4 mls/hr Titration Protocol 2 MG/HR Fentanyl Citrate 2,000 mcg in 100 mls @ 6.45 mls/hr 11/29/20 12:30 12/13/20 05:30 Fentanyl Drip Premix IV 3 mcg/kg/hr TITR KRYSTAL 19.35 mls/hr Administration Protocol 1 MCG/KG/HR Dexmedetomidine HCl 400 mcg/ 104 mls @ 6.885 mls/hr 12/08/20 16:00 12/13/20 04:09 Sodium Chloride IV 0.5 mcg/kg/hr TITRATE KRYSTAL 17.212 mls/hr Administration Protocol 0.2 MCG/KG/HR Propofol 1,000 mg in 100 mls @ 3.972 mls/hr 12/08/20 19:00 Diprivan 10 Mg/Ml IV TITR KRYSTAL Protocol 5 MCG/KG/MIN Piperacillin Sod/Tazobactam Sod 3.375 gm in 50 mls @ 100 mls/hr 12/12/20 18:00 12/13/20 04:09 Zosyn/Ns 3.375gm/50ml IV 100 mls/hr Q8H KRYSTAL Administration Insulin Human Regular 0 units 12/05/20 12:00 12/13/20 06:14 Insulin Regular, Human 100 Units/1 Ml SUB-Q Not Given Q6HR [facility] Protocol Midazolam HCl 2 mg 11/29/20 10:22 12/08/20 18:35 Midazolam 2 Mg/2 Ml Inj IV 2 mg Q10MIN PRN Administration Sedation Montelukast Sodium 10 mg 11/29/20 22:00 12/12/20 22:01 Montelukast 10 Mg Tab PO 10 mg HS KRYSTAL Administration Multi-Ingred Cream/Lotion/Oil/Oint 1 applic 12/01/20 08:54 Mineral Oil/Petrolatum, White Ophth Oint 3.5 Gm OU Q4HR PRN Dry Eye(s) Quetiapine Fumarate 150 mg 12/12/20 14:00 12/13/20 06:17 Quetiapine 100 Mg Tab PO 150 mg Q8H KRYSTAL Administration Senna/Docusate Sodium 1 tab 11/29/20 10:00 12/12/20 22:01 Sennosides/Docusate Sodium 8.6/50 Mg Tab FEEDTUBE 1 tab BID KRYSTAL Administration Simple Syrup 15 ml 11/29/20 15:23 Simple Syrup 15 Ml FEEDTUBE PRN PRN Hypoglycemia Simple Syrup 30 ml 11/29/20 15:23 Simple Syrup 15 Ml FEEDTUBE PRN PRN Hypoglycemia Sodium Bicarbonate 325 mg 11/29/20 15:23 Sodium Bicarbonate 325 Mg Tab FEEDTUBE PRN PRN For Clogged Feeding Tube Zinc Sulfate 220 mg 12/05/20 10:00 12/12/20 09:38 Zinc Sulfate 220 Mg Cap PO 220 mg QDAY KRYSTAL Administration Nutrition/Malnutrition Assess - Dietary Evaluation Nutrition/Malnutrition Findings: Nutrition Notes Start: 11/30/20 09:03 Freq: Status: Active Protocol: Document 12/07/20 10:14 VICTORIA (Rec: 12/07/20 10:17 VICTORIA [id number]) Nutrition Notes Initial or Follow up Reassessment Current Diagnosis Respiratory Failure Other Pertinent Diagnosis allergic reaction, alpha gal, hx HTN Current Diet Vital HP at 65 ml/hr Labs/Tests BUN 29 BG 148 Pertinent Medications Reviewed Height 5 ft 6 in Weight 132.4 kg [place] Body Weight (kg) 59.09 BMI 47.1 Weight Status Morbidly Obese Subjective/Other Information Pt suffered code blue yesterday. RN reports TF at goal and pt tolerating. Percent of energy/protein needs met: 84%/91% Burn Absent Trauma Absent Difficulty In Swallowing Current % PO Negligible Minimum of two criteria No Fluid Accumulation Mild (non-severe) #1 Nutrition Diagnosis Inadequate oral intake Diagnosis Progress(for reassessment Continues documentation) Is patient on ventilator? Yes Is Patient Ambulatory and/or Out of Bed No REE-([facility]-confined to bed) 2421.060 Kcal/Kg value to use for calculation 14 Approximate Energy Requirements Using 1854 kcal/Kg Calculation Used for Recommendations Kcal/kg Additional Notes Protein needs: 2.5 g/kg IBW , 148 g Fluid needs: 1ml/kcal Nutrition Intervention Change Diet Order: continue Nutrition Support: Vital High Protein at 65 ml/hr flush 45 ml q4h Kcal 1,560 Protein (gm) 135 Fluid (mL) 1,304 Goal #1 Meet at least 75% of protein and kcal needs via TF Anticipated Discharge Needs: Unable to determine at this time Follow-Up By: 12/13/20 Additional Comments F/u: TF tolerance
[2020-12-11] MEDS: FONDAPARINUX 2.5 MG/0.5 ML INJ SUB-Q SCH (22:49)
[2020-12-11] MEDS: MONTELUKAST 10 MG TAB PO SCH (22:51)
[2020-12-11] MEDS: VANCOMYCIN 1,500 MG in SODIUM CHLORIDE 0.9% 500 ML 500 ML IV SCH (22:59)
[2020-12-12] MEDS: fentaNYL DRIP Premix 2,000 MCG/100 ML BAG IV SCH ×5 (02:46→21:03)
[2020-12-12] MEDS: INSULIN REGULAR, HUMAN 100 UNITS/1 ML SUB-Q SCH ×5 (02:57→23:39)
[2020-12-12] MEDS: VANCOMYCIN 1,500 MG in SODIUM CHLORIDE 0.9% 500 ML 500 ML IV SCH ×3 (03:38→19:51)
--- NOTE | 2020-12-12 07:47 | XRay Report ---
CHEST 1 VIEW INDICATION: hypoxia. COMPARISON: One day prior. FINDINGS: Support devices: Unchanged. Heart: Stable. Lungs/Pleura: Very mild bilateral pulmonary opacities persist. No pneumothorax. IMPRESSION: 1. No significant change. Signer Name: Montrell Mclaughlin MD Signed: 12/08/2020 6:16 AM Workstation Name: [id number]
[2020-12-12] MEDS: MIDAZOLAM 100 MG in SODIUM CHLORIDE 0.9% 80 ML IV SCH (08:46)
[2020-12-12] MEDS: IPRATROPIUM/ALBUTEROL SULFATE 3 ML AMPUL.NEB IH SCH (09:33)
[2020-12-12] MEDS: GABAPENTIN 500 MG/10 ML ORAL LIQD PO SCH ×2 (09:37→23:45)
[2020-12-12] MEDS: ZINC SULFATE 220 MG CAP PO SCH (09:38)
[2020-12-12] MEDS: hydroCHLOROthiazide 12.5 MG CAP PO SCH (09:38)
[2020-12-12] MEDS: FAMOTIDINE 20 MG/2 ML INJ IV SCH ×2 (09:38→23:45)
[2020-12-12] MEDS: ASCORBIC ACID 500 MG TAB PO SCH ×2 (09:38→22:01)
[2020-12-12] MEDS: SENNOSIDES/DOCUSATE SODIUM 8.6/50 MG TAB FEEDTUBE SCH ×2 (09:38→22:01)
[2020-12-12] MEDS ORDERED: HALOPERIDOL LACTATE 5 MG/1 ML INJ IV ONE (12:00)
[2020-12-12] MEDS: QUEtiapine 100 MG TAB PO SCH ×2 (13:01→22:01)
--- NOTE | 2020-12-12 14:34 | Progress Note ---
Assessment and Plan Acute hypoxemic respiratory failure Angioedema Morbid obesity Mild leukocytosis- resolved Hypertension. h/o alpha-gal syndrome s/p Cardiopulmonary arrest with ROSC Place on PSV now, PS10 and monitor closely Continue with Zosyn, follow cultures and de-escalate antibiotic therapy as clinically indicated. - continue to wean supplemental oxygen for target O2 sats > 92% - continue Daily SAT and SBT assessment as tolerated - VAP bundle addressed - continue lung protective strategies - continue bronchodilators with pulmonary hygiene per RT - wean per pulmonary driven protocols otherwise - continue accuchecks with glycemic control per SSI (While critically ill target blood glucose of 140-180 mg/dL; avoid hypoglycemia) - sedation prn for target RASS -1 to -2, patient has dislodged ETT in the past - avoid nephrotoxins, renally dose all medications - continue to avoid benzodiazepines, reduce the possibility of delirium - prn analgesia per CPOT score - Maintenance of sleep-wake cycle, avoid delirium - continue enteral nutritional support at goal rate as tolerated -Stress ulcer and VTE prophylaxis - PT/OT/ROM exercises - continue mobility protocol, off loading, frequent turning per facility protocol for pressure ulcer prevention - Monitor hemodynamics closely - continue other care per attending / other consultants COVID SPECIFIC INTERVENTIONS - Continue contact and airborne isolation - Remdesivir not indicated as per ID/Pulmonary developed protocols - No steroids secondary to stage of illness and Solumedrol allergy - Anticoagulation per system Protocol based on d-dimer and clinical con siderations (VTE prophylaxis) CONDITION: CRITICAL PROGNOSIS: GUARDED CODE STATUS: FULL CODE The high probability of a clinically significant, sudden or life-threatening deterioration of the [respiratory, cardiovascular & immunologic] system(s) required my full and direct attention, intervention and personal management. The aggregate critical care time was [34] minutes without overlap. 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 Patient is seen today for: Acute hypoxemic respiratory failure; Angioedema; Morbid obesity; leukocytosis; HTN; H/O alpha-gal syndrome Seen and examined at bedside; 24hour events reviewed; nursing and respiratory care staff consulted; no adverse overnight events reported to me; resting in bed; remains on MVS; on going fevers, less agitation with Precedex; No vomiting, no diarrhea. Cultures sent, antibiotics broadened and Cefepime stopped. She is agreeable to a trial which we will initiate now. Hospitalist service had reached her - I was unable to speak with him Objective Vital Signs - 12hr 12/12/20 12/12/20 12/12/20 03:00 03:04 03:30 Temperature 99.9 F H Pulse Rate 85 80 Pulse Rate [ Anterior Bilateral Throughout] Pulse Rate [ From Monitor] Respiratory 16 12 Rate Respiratory Rate [Anterior Bilateral Throughout] Blood Pressure 130/83 128/85 O2 Sat by Pulse 97 96 Oximetry 12/12/20 12/12/20 12/12/20 04:00 04:09 04:30 Temperature Pulse Rate 71 66 68 Pulse Rate [ Anterior Bilateral Throughout] Pulse Rate [ 71 From Monitor] Respiratory 15 16 Rate Respiratory Rate [Anterior Bilateral Throughout] Blood Pressure 127/65 127/65 118/56 O2 Sat by Pulse 95 98 95 Oximetry 12/12/20 12/12/20 12/12/20 05:00 05:30 06:00 Temperature Pulse Rate 55 L 69 82 Pulse Rate [ Anterior Bilateral Throughout] Pulse Rate [ From Monitor] Respiratory 16 16 15 Rate Respiratory Rate [Anterior Bilateral Throughout] Blood Pressure 104/55 110/72 121/78 O2 Sat by Pulse 96 97 97 Oximetry 12/12/20 12/12/20 12/12/20 06:30 07:00 07:30 Temperature Pulse Rate 64 71 64 Pulse Rate [ Anterior Bilateral Throughout] Pulse Rate [ From Monitor] Respiratory 16 Rate Respiratory Rate [Anterior Bilateral Throughout] Blood Pressure 120/60 119/66 122/61 O2 Sat by Pulse 97 95 96 Oximetry 12/12/20 12/12/20 12/12/20 08:00 08:30 09:00 Temperature 98.8 F Pulse Rate 56 L 56 L 81 Pulse Rate [ Anterior Bilateral Throughout] Pulse Rate [ 64 From Monitor] Respiratory Rate Respiratory Rate [Anterior Bilateral Throughout] Blood Pressure 104/55 106/57 106/57 O2 Sat by Pulse 97 98 97 Oximetry 12/12/20 12/12/20 12/12/20 09:27 09:30 10:00 Temperature Pulse Rate 61 64 67 Pulse Rate [ 72 Anterior Bilateral Throughout] Pulse Rate [ From Monitor] Respiratory Rate Respiratory 17 Rate [Anterior Bilateral Throughout] Blood Pressure 122/68 122/68 126/60 O2 Sat by Pulse 99 98 95 Oximetry 12/12/20 12/12/20 12/12/20 10:30 11:00 11:30 Temperature Pulse Rate 76 63 73 Pulse Rate [ Anterior Bilateral Throughout] Pulse Rate [ From Monitor] Respiratory Rate Respiratory Rate [Anterior Bilateral Throughout] Blood Pressure 138/73 111/59 124/76 O2 Sat by Pulse 96 96 98 Oximetry 12/12/20 12/12/20 12:00 12:35 Temperature 98.6 F Pulse Rate 65 58 L Pulse Rate [ Anterior Bilateral Throughout] Pulse Rate [ 61 From Monitor] Respiratory Rate Respiratory Rate [Anterior Bilateral Throughout] Blood Pressure 122/60 114/50 O2 Sat by Pulse 96 98 Oximetry Constitutional: no acute distress (sedated), other (young obese female without increased respiratory effort at rest on MVS) Eyes: non-icteric ENT: oropharynx moist, other (ETT 23 cm JOSELYN, size 6 ETT) Neck: supple, no lymphadenopathy, no JVD, other (large circumference; + healed trach scar) Effort: mildly labored Ascultation: Bilateral: diminished breath sounds, rales (coarse ), rhonchi Percussion: Bilateral: not dull Cardiovascular: regular rate and rhythm, other (S1,S2) Gastrointestinal: normoactive bowel sounds, soft, non-tender, non-distended Integumentary: normal Extremities: no cyanosis, no edema, pink and warm, pulses normal Neurologic: non-focal exam, pupils equal and round, CN II-XII normal, motor strength normal and Psychiatric: mood appropriate, affect normal, other (sedated but rousable) CBC and BMP: 12/13/20 04:52 12/13/20 04:52 ABG, PT/INR, D-dimer: ABG ABG pH 7.453 (7.320-7.450) H 12/12/20 04:00 POC ABG pCO2 41.4 mmHg (32.0-48.0) 12/12/20 04:00 POC ABG pO2 79.3 mmHg (83-108) L 12/12/20 04:00 POC ABG HCO3 28.3 12/12/20 04:00 ABG O2 Saturation 95.5 (0-100) 12/12/20 04:00 PT/INR, D-dimer PT 13.9 Sec. (12.2-14.9) 12/07/20 04:00 INR 1.02 (0.87-1.13) 12/07/20 04:00 D-Dimer 1838.21 ng/mlDDU (0-234) H 12/04/20 10:41 Abnormal lab findings: Abnormal Labs 11/29/20 11/29/20 11/29/20 07:48 07:48 07:48 WBC 11.3 H RBC Hgb Hct RDW 18.0 H Lymph % (Auto) [place] # (Auto) Seg Neutrophils % Seg Neuts % (Manual) Lymphocytes % (Manual) Seg Neutrophils # 7.9 H Seg Neutrophils # Man Lymphocytes # (Manual) Monocytes # (Manual) Basophils # (Manual) D-Dimer ABG pH POC ABG pCO2 POC ABG pO2 ABG Hemoglobin ABG Oxyhemoglobin ABG Sodium ABG Potassium ABG Chloride ABG Glucose Carboxyhemoglobin Sodium 135 L Chloride Carbon Dioxide BUN Creatinine Glucose 204 H POC Glucose Calcium Ferritin Lactate Dehydrogenase Total Creatine Kinase CK-MB (CK-2) C-Reactive Protein Total Protein Albumin 3.7 L Arterial Blood Glucose Urine WBC (Auto) Coronavirus (PCR) 11/29/20 11/30/20 11/30/20 11:37 04:27 11:22 WBC RBC Hgb Hct RDW Lymph % (Auto) [place] # (Auto) Seg Neutrophils % Seg Neuts % (Manual) Lymphocytes % (Manual) Seg Neutrophils # Seg Neutrophils # Man Lymphocytes # (Manual) Monocytes # (Manual) Basophils # (Manual) D-Dimer ABG pH 7.318 L POC ABG pCO2 POC ABG pO2 76.1 L 196.4 H ABG Hemoglobin 11.96 L ABG Oxyhemoglobin 92.4 L 98.5 H ABG Sodium 133.7 L ABG Potassium 5.0 H ABG Chloride ABG Glucose 171 H Carboxyhemoglobin 2.5 H Sodium Chloride Carbon Dioxide BUN Creatinine Glucose POC Glucose 157 H Calcium Ferritin Lactate Dehydrogenase Total Creatine Kinase CK-MB (CK-2) C-Reactive Protein Total Protein Albumin Arterial Blood Glucose 171 H Urine WBC (Auto) Coronavirus (PCR) 11/30/20 11/30/20 11/30/20 14:12 17:19 23:42 WBC RBC Hgb Hct RDW Lymph % (Auto) [place] # (Auto) Seg Neutrophils % Seg Neuts % (Manual) Lymphocytes % (Manual) Seg Neutrophils # Seg Neutrophils # Man Lymphocytes # (Manual) Monocytes # (Manual) Basophils # (Manual) D-Dimer ABG pH POC ABG pCO2 POC ABG pO2 ABG Hemoglobin ABG Oxyhemoglobin ABG Sodium ABG Potassium ABG Chloride ABG Glucose Carboxyhemoglobin Sodium Chloride Carbon Dioxide BUN Creatinine Glucose POC Glucose 135 H 121 H Calcium Ferritin Lactate Dehydrogenase Total Creatine Kinase 1132 H CK-MB (CK-2) 14.6 H C-Reactive Protein Total Protein Albumin Arterial Blood Glucose Urine WBC (Auto) Coronavirus (PCR) 12/01/20 12/01/20 12/01/20 03:30 04:21 06:16 WBC RBC Hgb Hct RDW Lymph % (Auto) [place] # (Auto) Seg Neutrophils % Seg Neuts % (Manual) Lymphocytes % (Manual) Seg Neutrophils # Seg Neutrophils # Man Lymphocytes # (Manual) Monocytes # (Manual) Basophils # (Manual) D-Dimer ABG pH POC ABG pCO2 POC ABG pO2 37.6 L 76.2 L ABG Hemoglobin 10.4 L 10.8 L ABG Oxyhemoglobin 76.4 L 93.7 L ABG Sodium 112.8 L 110.9 L ABG Potassium ABG Chloride ABG Glucose 103 H 107 H Carboxyhemoglobin Sodium Chloride Carbon Dioxide BUN Creatinine Glucose POC Glucose 129 H Calcium Ferritin Lactate Dehydrogenase Total Creatine Kinase CK-MB (CK-2) C-Reactive Protein Total Protein Albumin Arterial Blood Glucose 103 H 107 H Urine WBC (Auto) Coronavirus (PCR) 12/02/20 12/02/20 12/02/20 04:00 12:02 17:10 WBC RBC Hgb Hct RDW Lymph % (Auto) [place] # (Auto) Seg Neutrophils % Seg Neuts % (Manual) Lymphocytes % (Manual) Seg Neutrophils # Seg Neutrophils # Man Lymphocytes # (Manual) Monocytes # (Manual) Basophils # (Manual) D-Dimer ABG pH 7.306 L POC ABG pCO2 58.0 H POC ABG pO2 58.5 L ABG Hemoglobin 11.4 L ABG Oxyhemoglobin 86.9 L ABG Sodium 124.7 L ABG Potassium ABG Chloride ABG Glucose 118 H Carboxyhemoglobin Sodium Chloride Carbon Dioxide BUN Creatinine Glucose POC Glucose 143 H 134 H Calcium Ferritin Lactate Dehydrogenase Total Creatine Kinase CK-MB (CK-2) C-Reactive Protein Total Protein Albumin Arterial Blood Glucose 118 H Urine WBC (Auto) Coronavirus (PCR) 12/03/20 12/03/20 12/04/20 05:10 08:00 03:32 WBC RBC Hgb Hct RDW Lymph % (Auto) [place] # (Auto) Seg Neutrophils % Seg Neuts % (Manual) Lymphocytes % (Manual) Seg Neutrophils # Seg Neutrophils # Man Lymphocytes # (Manual) Monocytes # (Manual) Basophils # (Manual) D-Dimer ABG pH 7.272 L POC ABG pCO2 60.1 H 54.6 H POC ABG pO2 82.8 L 78.6 L ABG Hemoglobin 11.4 L ABG Oxyhemoglobin ABG Sodium 132.2 L 130.2 L ABG Potassium ABG Chloride ABG Glucose 166 H 164 H Carboxyhemoglobin 0.4 L Sodium Chloride Carbon Dioxide BUN Creatinine Glucose POC Glucose Calcium Ferritin Lactate Dehydrogenase Total Creatine Kinase CK-MB (CK-2) C-Reactive Protein Total Protein Albumin Arterial Blood Glucose 166 H 164 H Urine WBC (Auto) Coronavirus (PCR) Positive A 12/04/20 12/04/20 12/04/20 05:40 05:40 07:30 WBC 21.7 H RBC Hgb Hct RDW 18.2 H Lymph % (Auto) [place] # (Auto) Seg Neutrophils % Seg Neuts % (Manual) 74.0 H Lymphocytes % (Manual) 2.0 L Seg Neutrophils # Seg Neutrophils # Man 16.1 H Lymphocytes # (Manual) 0.4 L Monocytes # (Manual) 1.1 H Basophils # (Manual) 0.2 H D-Dimer ABG pH POC ABG pCO2 POC ABG pO2 ABG Hemoglobin ABG Oxyhemoglobin ABG Sodium ABG Potassium ABG Chloride ABG Glucose Carboxyhemoglobin Sodium Chloride Carbon Dioxide BUN 26 H Creatinine 1.7 H D Glucose 157 H POC Glucose Calcium Ferritin Lactate Dehydrogenase Total Creatine Kinase CK-MB (CK-2) C-Reactive Protein Total Protein 6.2 L Albumin 2.6 L Arterial Blood Glucose Urine WBC (Auto) > 182.0 H Coronavirus (PCR) 12/04/20 12/04/20 12/04/20 10:41 10:41 10:41 WBC RBC Hgb Hct RDW Lymph % (Auto) [place] # (Auto) Seg Neutrophils % Seg Neuts % (Manual) Lymphocytes % (Manual) Seg Neutrophils # Seg Neutrophils # Man Lymphocytes # (Manual) Monocytes # (Manual) Basophils # (Manual) D-Dimer 1838.21 H ABG pH POC ABG pCO2 POC ABG pO2 ABG Hemoglobin ABG Oxyhemoglobin ABG Sodium ABG Potassium ABG Chloride ABG Glucose Carboxyhemoglobin Sodium Chloride Carbon Dioxide BUN Creatinine Glucose POC Glucose Calcium Ferritin 399.0 H Lactate Dehydrogenase 386 H Total Creatine Kinase CK-MB (CK-2) C-Reactive Protein 34.30 H Total Protein Albumin Arterial Blood Glucose Urine WBC (Auto) Coronavirus (PCR) 12/04/20 12/05/20 12/05/20 23:58 00:10 00:45 WBC RBC Hgb Hct RDW Lymph % (Auto) [place] # (Auto) Seg Neutrophils % Seg Neuts % (Manual) Lymphocytes % (Manual) Seg Neutrophils # Seg Neutrophils # Man Lymphocytes # (Manual) Monocytes # (Manual) Basophils # (Manual) D-Dimer ABG pH POC ABG pCO2 55.5 H POC ABG pO2 ABG Hemoglobin 11.2 L ABG Oxyhemoglobin ABG Sodium 135.0 L ABG Potassium 4.6 H ABG Chloride ABG Glucose 165 H Carboxyhemoglobin Sodium Chloride Carbon Dioxide BUN Creatinine Glucose POC Glucose 134 H 146 H Calcium Ferritin Lactate Dehydrogenase Total Creatine Kinase CK-MB (CK-2) C-Reactive Protein Total Protein Albumin Arterial Blood Glucose 165 H Urine WBC (Auto) Coronavirus (PCR) 12/05/20 12/05/20 12/05/20 11:04 11:04 11:52 WBC 13.0 H RBC 3.61 L Hgb Hct RDW 18.8 H Lymph % (Auto) 13.1 L [place] # (Auto) 0.9 H Seg Neutrophils % 77.6 H Seg Neuts % (Manual) Lymphocytes % (Manual) Seg Neutrophils # 10.0 H Seg Neutrophils # Man Lymphocytes # (Manual) Monocytes # (Manual) Basophils # (Manual) D-Dimer ABG pH POC ABG pCO2 POC ABG pO2 ABG Hemoglobin ABG Oxyhemoglobin ABG Sodium ABG Potassium ABG Chloride ABG Glucose Carboxyhemoglobin Sodium Chloride Carbon Dioxide 31 H BUN 21 H Creatinine Glucose 152 H POC Glucose 121 H Calcium Ferritin Lactate Dehydrogenase Total Creatine Kinase CK-MB (CK-2) C-Reactive Protein Total Protein Albumin Arterial Blood Glucose Urine WBC (Auto) Coronavirus (PCR) 12/05/20 12/05/20 12/06/20 17:31 23:37 04:00 WBC RBC Hgb Hct RDW Lymph % (Auto) [place] # (Auto) Seg Neutrophils % Seg Neuts % (Manual) Lymphocytes % (Manual) Seg Neutrophils # Seg Neutrophils # Man Lymphocytes # (Manual) Monocytes # (Manual) Basophils # (Manual) D-Dimer ABG pH 7.471 H POC ABG pCO2 POC ABG pO2 75.2 L ABG Hemoglobin 10.4 L ABG Oxyhemoglobin ABG Sodium 133.7 L ABG Potassium ABG Chloride ABG Glucose 120 H Carboxyhemoglobin Sodium Chloride Carbon Dioxide BUN Creatinine Glucose POC Glucose 148 H 133 H Calcium Ferritin Lactate Dehydrogenase Total Creatine Kinase CK-MB (CK-2) C-Reactive Protein Total Protein Albumin Arterial Blood Glucose 120 H Urine WBC (Auto) Coronavirus (PCR) 12/06/20 12/06/20 12/06/20 05:07 05:07 05:09 WBC RBC 3.37 L Hgb 9.4 L Hct 28.4 L RDW 18.3 H Lymph % (Auto) [place] # (Auto) Seg Neutrophils % Seg Neuts % (Manual) Lymphocytes % (Manual) Seg Neutrophils # Seg Neutrophils # Man Lymphocytes # (Manual) Monocytes # (Manual) Basophils # (Manual) D-Dimer ABG pH POC ABG pCO2 POC ABG pO2 ABG Hemoglobin ABG Oxyhemoglobin ABG Sodium ABG Potassium ABG Chloride ABG Glucose Carboxyhemoglobin Sodium Chloride Carbon Dioxide 33 H BUN 25 H Creatinine Glucose 131 H POC Glucose 122 H Calcium Ferritin Lactate Dehydrogenase Total Creatine Kinase CK-MB (CK-2) C-Reactive Protein Total Protein Albumin Arterial Blood Glucose Urine WBC (Auto) Coronavirus (PCR) 12/06/20 12/06/20 12/06/20 11:59 16:17 17:30 WBC RBC Hgb Hct RDW Lymph % (Auto) [place] # (Auto) Seg Neutrophils % Seg Neuts % (Manual) Lymphocytes % (Manual) Seg Neutrophils # Seg Neutrophils # Man Lymphocytes # (Manual) Monocytes # (Manual) Basophils # (Manual) D-Dimer ABG pH POC ABG pCO2 61.8 H POC ABG pO2 180.5 H ABG Hemoglobin ABG Oxyhemoglobin ABG Sodium ABG Potassium ABG Chloride ABG Glucose 142 H Carboxyhemoglobin Sodium Chloride Carbon Dioxide BUN Creatinine Glucose POC Glucose 120 H 114 H Calcium Ferritin Lactate Dehydrogenase Total Creatine Kinase CK-MB (CK-2) C-Reactive Protein Total Protein Albumin Arterial Blood Glucose 142 H Urine WBC (Auto) Coronavirus (PCR) 12/06/20 12/07/20 12/07/20 23:09 04:00 04:00 WBC RBC 3.47 L Hgb 9.5 L Hct 29.5 L RDW 18.7 H Lymph % (Auto) [place] # (Auto) Seg Neutrophils % Seg Neuts % (Manual) Lymphocytes % (Manual) Seg Neutrophils # Seg Neutrophils # Man Lymphocytes # (Manual) Monocytes # (Manual) Basophils # (Manual) D-Dimer ABG pH POC ABG pCO2 55.9 H POC ABG pO2 ABG Hemoglobin 11.6 L ABG Oxyhemoglobin ABG Sodium 135.2 L ABG Potassium 4.7 H ABG Chloride ABG Glucose 141 H Carboxyhemoglobin Sodium Chloride Carbon Dioxide BUN Creatinine Glucose POC Glucose 112 H Calcium Ferritin Lactate Dehydrogenase Total Creatine Kinase CK-MB (CK-2) C-Reactive Protein Total Protein Albumin Arterial Blood Glucose 141 H Urine WBC (Auto) Coronavirus (PCR) 12/07/20 12/07/20 12/07/20 05:00 05:28 12:20 WBC RBC Hgb Hct RDW Lymph % (Auto) [place] # (Auto) Seg Neutrophils % Seg Neuts % (Manual) Lymphocytes % (Manual) Seg Neutrophils # Seg Neutrophils # Man Lymphocytes # (Manual) Monocytes # (Manual) Basophils # (Manual) D-Dimer ABG pH POC ABG pCO2 POC ABG pO2 ABG Hemoglobin ABG Oxyhemoglobin ABG Sodium ABG Potassium ABG Chloride ABG Glucose Carboxyhemoglobin Sodium Chloride 96.6 L Carbon Dioxide 35 H BUN 29 H Creatinine Glucose 148 H POC Glucose 139 H 130 H Calcium Ferritin Lactate Dehydrogenase Total Creatine Kinase CK-MB (CK-2) C-Reactive Protein Total Protein Albumin Arterial Blood Glucose Urine WBC (Auto) Coronavirus (PCR) 12/07/20 12/07/20 12/08/20 16:54 23:15 04:00 WBC RBC Hgb Hct RDW Lymph % (Auto) [place] # (Auto) Seg Neutrophils % Seg Neuts % (Manual) Lymphocytes % (Manual) Seg Neutrophils # Seg Neutrophils # Man Lymphocytes # (Manual) Monocytes # (Manual) Basophils # (Manual) D-Dimer ABG pH POC ABG pCO2 53.4 H POC ABG pO2 ABG Hemoglobin 11.4 L ABG Oxyhemoglobin ABG Sodium ABG Potassium ABG Chloride 96.0 L ABG Glucose 149 H Carboxyhemoglobin Sodium Chloride Carbon Dioxide BUN Creatinine Glucose POC Glucose 121 H 166 H Calcium Ferritin Lactate Dehydrogenase Total Creatine Kinase CK-MB (CK-2) C-Reactive Protein Total Protein Albumin Arterial Blood Glucose 149 H Urine WBC (Auto) Coronavirus (PCR) 12/08/20 12/08/20 12/08/20 05:29 08:33 08:33 WBC 11.2 H RBC 3.64 L Hgb Hct 30.2 L RDW 18.1 H Lymph % (Auto) [place] # (Auto) Seg Neutrophils % Seg Neuts % (Manual) Lymphocytes % (Manual) Seg Neutrophils # Seg Neutrophils # Man Lymphocytes # (Manual) Monocytes # (Manual) Basophils # (Manual) D-Dimer ABG pH POC ABG pCO2 POC ABG pO2 ABG Hemoglobin ABG Oxyhemoglobin ABG Sodium ABG Potassium ABG Chloride ABG Glucose Carboxyhemoglobin Sodium Chloride 96.2 L Carbon Dioxide 33 H BUN 31 H Creatinine Glucose 166 H POC Glucose 128 H Calcium 10.3 H Ferritin Lactate Dehydrogenase Total Creatine Kinase CK-MB (CK-2) C-Reactive Protein Total Protein Albumin Arterial Blood Glucose Urine WBC (Auto) Coronavirus (PCR) 12/08/20 12/08/20 12/09/20 11:53 16:46 00:20 WBC RBC Hgb Hct RDW Lymph % (Auto) [place] # (Auto) Seg Neutrophils % Seg Neuts % (Manual) Lymphocytes % (Manual) Seg Neutrophils # Seg Neutrophils # Man Lymphocytes # (Manual) Monocytes # (Manual) Basophils # (Manual) D-Dimer ABG pH POC ABG pCO2 POC ABG pO2 ABG Hemoglobin ABG Oxyhemoglobin ABG Sodium ABG Potassium ABG Chloride ABG Glucose Carboxyhemoglobin Sodium Chloride Carbon Dioxide BUN Creatinine Glucose POC Glucose 170 H 157 H 164 H Calcium Ferritin Lactate Dehydrogenase Total Creatine Kinase CK-MB (CK-2) C-Reactive Protein Total Protein Albumin Arterial Blood Glucose Urine WBC (Auto) Coronavirus (PCR) 12/09/20 12/09/20 12/09/20 04:00 05:07 05:07 WBC 11.4 H RBC 3.53 L Hgb 9.8 L Hct 29.2 L RDW 17.8 H Lymph % (Auto) [place] # (Auto) Seg Neutrophils % Seg Neuts % (Manual) Lymphocytes % (Manual) Seg Neutrophils # Seg Neutrophils # Man Lymphocytes # (Manual) Monocytes # (Manual) Basophils # (Manual) D-Dimer ABG pH POC ABG pCO2 54.4 H POC ABG pO2 ABG Hemoglobin 10.5 L ABG Oxyhemoglobin ABG Sodium ABG Potassium ABG Chloride ABG Glucose 204 H Carboxyhemoglobin Sodium Chloride Carbon Dioxide 33 H BUN 38 H Creatinine Glucose 189 H POC Glucose Calcium Ferritin Lactate Dehydrogenase Total Creatine Kinase CK-MB (CK-2) C-Reactive Protein Total Protein Albumin Arterial Blood Glucose 204 H Urine WBC (Auto) Coronavirus (PCR) 12/09/20 12/09/20 12/09/20 05:30 11:57 17:33 WBC RBC Hgb Hct RDW Lymph % (Auto) [place] # (Auto) Seg Neutrophils % Seg Neuts % (Manual) Lymphocytes % (Manual) Seg Neutrophils # Seg Neutrophils # Man Lymphocytes # (Manual) Monocytes # (Manual) Basophils # (Manual) D-Dimer ABG pH POC ABG pCO2 POC ABG pO2 ABG Hemoglobin ABG Oxyhemoglobin ABG Sodium ABG Potassium ABG Chloride ABG Glucose Carboxyhemoglobin Sodium Chloride Carbon Dioxide BUN Creatinine Glucose POC Glucose 190 H 153 H 180 H Calcium Ferritin Lactate Dehydrogenase Total Creatine Kinase CK-MB (CK-2) C-Reactive Protein Total Protein Albumin Arterial Blood Glucose Urine WBC (Auto) Coronavirus (PCR) 12/10/20 12/10/20 12/10/20 00:28 03:16 05:03 WBC 11.5 H RBC 3.42 L Hgb 9.4 L Hct 29.3 L RDW 17.9 H Lymph % (Auto) [place] # (Auto) Seg Neutrophils % Seg Neuts % (Manual) Lymphocytes % (Manual) Seg Neutrophils # Seg Neutrophils # Man Lymphocytes # (Manual) Monocytes # (Manual) Basophils # (Manual) D-Dimer ABG pH 7.493 H POC ABG pCO2 POC ABG pO2 71.4 L ABG Hemoglobin 9.9 L ABG Oxyhemoglobin ABG Sodium ABG Potassium ABG Chloride ABG Glucose 181 H Carboxyhemoglobin 0.4 L Sodium Chloride Carbon Dioxide BUN Creatinine Glucose POC Glucose 173 H Calcium Ferritin Lactate Dehydrogenase Total Creatine Kinase CK-MB (CK-2) C-Reactive Protein Total Protein Albumin Arterial Blood Glucose 181 H Urine WBC (Auto) Coronavirus (PCR) 12/10/20 12/10/20 12/10/20 05:03 05:48 11:41 WBC RBC Hgb Hct RDW Lymph % (Auto) [place] # (Auto) Seg Neutrophils % Seg Neuts % (Manual) Lymphocytes % (Manual) Seg Neutrophils # Seg Neutrophils # Man Lymphocytes # (Manual) Monocytes # (Manual) Basophils # (Manual) D-Dimer ABG pH POC ABG pCO2 POC ABG pO2 ABG Hemoglobin ABG Oxyhemoglobin ABG Sodium ABG Potassium ABG Chloride ABG Glucose Carboxyhemoglobin Sodium Chloride Carbon Dioxide BUN 34 H Creatinine Glucose 174 H POC Glucose 176 H 203 H Calcium Ferritin Lactate Dehydrogenase Total Creatine Kinase CK-MB (CK-2) C-Reactive Protein Total Protein Albumin Arterial Blood Glucose Urine WBC (Auto) Coronavirus (PCR) 12/10/20 12/10/20 12/11/20 16:32 23:27 04:00 WBC RBC Hgb Hct RDW Lymph % (Auto) [place] # (Auto) Seg Neutrophils % Seg Neuts % (Manual) Lymphocytes % (Manual) Seg Neutrophils # Seg Neutrophils # Man Lymphocytes # (Manual) Monocytes # (Manual) Basophils # (Manual) D-Dimer ABG pH 7.517 H POC ABG pCO2 POC ABG pO2 ABG Hemoglobin 10.0 L ABG Oxyhemoglobin ABG Sodium ABG Potassium ABG Chloride ABG Glucose 175 H Carboxyhemoglobin 0.3 L Sodium Chloride Carbon Dioxide BUN Creatinine Glucose POC Glucose 148 H 186 H Calcium Ferritin Lactate Dehydrogenase Total Creatine Kinase CK-MB (CK-2) C-Reactive Protein Total Protein Albumin Arterial Blood Glucose 175 H Urine WBC (Auto) Coronavirus (PCR) 12/11/20 12/11/20 12/11/20 05:18 06:05 06:05 WBC RBC 3.19 L Hgb 9.0 L Hct 27.1 L RDW 18.0 H Lymph % (Auto) [place] # (Auto) Seg Neutrophils % Seg Neuts % (Manual) Lymphocytes % (Manual) Seg Neutrophils # Seg Neutrophils # Man Lymphocytes # (Manual) Monocytes # (Manual) Basophils # (Manual) D-Dimer ABG pH POC ABG pCO2 POC ABG pO2 ABG Hemoglobin ABG Oxyhemoglobin ABG Sodium ABG Potassium ABG Chloride ABG Glucose Carboxyhemoglobin Sodium Chloride Carbon Dioxide BUN 33 H Creatinine Glucose 158 H POC Glucose 151 H Calcium Ferritin Lactate Dehydrogenase Total Creatine Kinase CK-MB (CK-2) C-Reactive Protein Total Protein Albumin Arterial Blood Glucose Urine WBC (Auto) Coronavirus (PCR) 12/11/20 12/11/20 12/11/20 12:17 18:07 23:30 WBC RBC Hgb Hct RDW Lymph % (Auto) [place] # (Auto) Seg Neutrophils % Seg Neuts % (Manual) Lymphocytes % (Manual) Seg Neutrophils # Seg Neutrophils # Man Lymphocytes # (Manual) Monocytes # (Manual) Basophils # (Manual) D-Dimer ABG pH POC ABG pCO2 POC ABG pO2 ABG Hemoglobin ABG Oxyhemoglobin ABG Sodium ABG Potassium ABG Chloride ABG Glucose Carboxyhemoglobin Sodium Chloride Carbon Dioxide BUN Creatinine Glucose POC Glucose 163 H 152 H 144 H Calcium Ferritin Lactate Dehydrogenase Total Creatine Kinase CK-MB (CK-2) C-Reactive Protein Total Protein Albumin Arterial Blood Glucose Urine WBC (Auto) Coronavirus (PCR) 12/12/20 12/12/20 12/12/20 04:00 04:27 11:29 WBC RBC Hgb Hct RDW Lymph % (Auto) [place] # (Auto) Seg Neutrophils % Seg Neuts % (Manual) Lymphocytes % (Manual) Seg Neutrophils # Seg Neutrophils # Man Lymphocytes # (Manual) Monocytes # (Manual) Basophils # (Manual) D-Dimer ABG pH 7.453 H POC ABG pCO2 POC ABG pO2 79.3 L ABG Hemoglobin 9.3 L ABG Oxyhemoglobin ABG Sodium ABG Potassium ABG Chloride ABG Glucose 159 H Carboxyhemoglobin Sodium Chloride Carbon Dioxide BUN Creatinine Glucose POC Glucose 146 H 135 H Calcium Ferritin Lactate Dehydrogenase Total Creatine Kinase CK-MB (CK-2) C-Reactive Protein Total Protein Albumin Arterial Blood Glucose 159 H Urine WBC (Auto) Coronavirus (PCR) Chest x-ray: image reviewed Allied health notes reviewed: RT
--- NOTE | 2020-12-12 14:58 | Progress Note ---
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 Neuro: h/o migraines, peripheral neuropathy -Sedated with fentanyl, Versed, Precedex AGITATED BUT HER 61 SO CAN NOT INC DEX ADDED SEROQUEL ON SCHEDULED JELANI -Goal RASS 0 to -1 -Avoid delirium -SAT trials when appropriate -Bilateral restraints for safety Cardio: ST,h/o HTN, s/p hypertensive urgency, s/p cardiac arrest -S/p Cardene drip -Blood pressure monitoring per protocol -HOME HCTZ -S/p respiratory leading to cardiac arrest on 12/06 Resp: Acute hypoxic respiratory failure, severe tracheal stenosis, bronchial asthma exacerbation -Patient was intubated in the emergency department for ventilation support due to severe angioedema- HAS BEEN INTUBATED OVER 40 TIMES AND HAS HAD A TRACH -CCM consulted, appreciate recommendations -VAP bundle -Daily SBT trial when appropriate -SPO2 monitoring -Daily CXR and ABG -A.m. vent settings: AC r rate 16, tidal volume 450, PEEP of 8 5% FiO2 SEE RT NOTES FOR WEANING -Intubated with 6 oett at 20 at the lips GI: Morbid obesity -Nutrition consulted -Tube feedings at goal -Bowel regimen with Senokot -PPI : Acute kidney injury 2/2 Vasomotor nephropathy -Presented with a BUN/creatinine of 0.8/10 -Daily weights -Avoid nephrotoxic medications -Renally dose medications -Dash -Trend BMP -AM LABS ORDERED ID: Acute sepsis, hereditary idiopathic angioedema and urticia, Alpha gal syndrome, COVID-19 infection, allergic reaction, Ecoli UTI -Infectious disease consulted, appreciate recommendations -COMPLETED TX FOR UTI -h/o multiple intubations and tracheostomy in the past, patient has multiple allergies -Outpatient nurse licensed practical/ENT follow-up upon discharge -Per the patient has been positive for COVID-19 for approximately 20 days prior to admission -ABX per ID: Escalated to cefepime from azithromycin and ceftriaxone -Droplet/agitation precautions -Follow WBC and culture data -Follow fever curve Endo: h/o DM type II, hyperglycemia -SSI -Avoid hypoglycemia -BG every 6H Heme: Leukocytosis -Trend CBC -ON ARIXTRA -Bilateral lower extremity Doppler ultrasound completed-> no DVT The high probability of a clinically significant, sudden or life threatening deterioration of the [multi] system(s) required my full and direct attention, intervention and personal management. The aggregate critical care time was [60] minutes. This time is in addition to time spent performing reported procedures but includes the following: [x] Data Review and interpretation [x] Patient assessment and monitoring of vital signs [x] Documentation [x] Medication orders and management History Interval history: This is a 39-year-old female with HTN, migraines, asthma, peripheral neuropathy, morbid obesity severe tracheal stenosis, idiopathic heredity angioedema and uticaria, alphagal syndrome s/p trach and multiple intubations who presented to emergency department on 11/29 for allergic reaction. Patient was intubated in the emergency department. Per family IV Benadryl, ketamine and Decadron work for spasms and stridor. Patient reportedly used EpiPen prior to arrival to emergency department. Patient is a being admitted to the hospital service with consult to [facility] for acute respiratory failure with hypoxemia secondary to hereditary angioedema and allergic reaction, hypertensive urgency. 11/30: Patient is on vent but awake and communicative. She is anxious. Patient does not know what triggered current recurrence of angioedema. FiO2 35%. Hemodynamically stable. Discussed with nursing staff and the patient, she communicates with writing. 12/01: Patient remains on vent and sedated. Current FiO2 30%. No acute events from overnight reported. Angioedema of face seems to improving. Hemodynamically stable. Pulmonary managing ventilator. Will be extubated when angioedema improved significantly. Discussed with the nursing staff. 12/02/20; Dr. Estrada recommended to initiate transfer to [facility] under the care of patient's ENT surgeon Dr. Carias I called [facility] transfer center at [phone] and requested a transfer, discussed in detail with the transfer center nurse Ms. River She she took all the patient's information and added the name of the patient to the list of waiting for ICU transfers and reported that there are no ICU beds available at this point. Would call back, and said she would request for a facesheet I informed the above information to machine cutter Dr. Estrada ,ICU charge nurse and the patient's nurse. Will follow up with the transfer process 12/03/2020; Ascencio PCR test is positive today reports patient has been Covid positive for the last 20 days without any symptoms Management per guidelines, ID consult 12/03/20 20:18: I called patient's spouse Mr. Manoj Sol at [phone] and discussed in detail patient's condition, treatment plan, tests and reports, efforts to transfer the patient to [facility], however could not be successfully till now due to unavailability of ICU beds at [facility] at this point, he wanted to know the plan of extubation here in the hospital, I encouraged him to call back tomorrow to discuss with pulmonary critical physician Dr. Estrada. I answered all his questions, he also reports that patient Ms. Ebenezer Lynn has been Covid positive for the last 20 days. I encouraged him to call back if she has any new concerns regarding the patient's condition no other treatment. He was appreciative of my call 12/04/2020; Persistent fevers, persistent positive COVID-19 ID consulted, awaiting transfer to [facility] Discussed extensively with patient's yesterday Patient is critically ill ,very poor prognosis 12/05: Patient's updated by [facility], awaiting transfer to [facility]. 12/06:CASSIUS overnight. This evening patient was agitated and bite down on OETT and became hypoxic. Eventually losing her pulse and received ACLS. Dr. Tavo Meeks attempted to update of events but no answer. See code sheet/note for details I updated pt mother over the phone as she questioned about "organ failure" and need for trach. She stated pt and her are against a trach. 12/07: CASSIUS overnight. updated on cardiac arrest yesterday. States that the patient and her would like to avoid a tracheostomy if possible however if emergent tracheostomy is needed then can be performed. Patient and are awaiting visit to [facility] for surgery for tracheal stenosis. Maonj Sol stated that mother in-law Nicole York may be contacted if Manoj is not able to be reached in case of emergency. Her number is [phone] 12/08: Patient with constant agitation and Precedex drip started. 12/09: Patient seems less agitated with addition of Precedex yesterday. Patient remains on ventilatory support and is awaiting transfer to [facility]. 12/10: CASSIUS overnight. neuro consult and LP per CCM, Manoj updated and FT visit with family. Manoj request for visitation for at least extubation. He states that his presence helps with calming the patient down. He also recommends the use of Precedex to aid extubation and states that has worked before. 12/11: Patient still having low-grade temps and will finish cefepime today. Started on Zosyn and pancultured. Plan is to CPAP tomorrow to extubate on Precedex. states pts anxiety kicks in with 1-2 hours post extubation and patint will sate she wants to leave AMA. States she has threatened before. Manoj also stated that if unable to reach Manoj we can call [id number] and she will text him to call back. 12-12 CASSIUS OVERNIGHT; HAS BEEN AGITATED ON FENTANYL, VERSED AND DEX. LIZZETH ON .5 DEX Disposition Plan: ICU Total Time Spent with Patient (Minutes): 60 History Interval history: NO ACUTE EVENTS OVERNIGHT Hospitalist Physical - Constitutional Vitals: Temp Pulse Resp BP Pulse Ox 98.6 F 58 L 17 114/50 98 12/12/20 12:00 12/12/20 12:35 12/12/20 10:00 12/12/20 12:35 12/12/20 12:35 General appearance: Present: no acute distress, well-nourished, obese, other (Intubated on vent, sedated but follows commands) - EENT Eyes: Present: PERRL ENT: clear oral mucosa - Neck Neck: Present: supple, normal ROM - Respiratory Respiratory effort: normal - Cardiovascular Rhythm: regular - Extremities Extremities: no ischemia Peripheral Pulses: within normal limits - Abdominal General gastrointestinal: soft - Integumentary Integumentary: Present: clear, warm, dry - Psychiatric Psychiatric: other - Neurologic Neurologic: other - Allied Health Allied health notes reviewed: nursing, RT, social work, case management HEART Score - HEART Score Troponin: Troponin T < 0.010 ng/mL (0.00-0.029) 11/30/20 14:12 Results - Labs CBC & Chem 7: 12/11/20 06:05 12/11/20 06:05 Labs: Laboratory Last Values WBC 10.5 K/mm3 (4.5-11.0) 12/11/20 06:05 RBC 3.19 M/mm3 (3.65-5.03) L 12/11/20 06:05 Hgb 9.0 gm/dl (10.1-14.3) L 12/11/20 06:05 Hct 27.1 % (30.3-42.9) L 12/11/20 06:05 MCV 85 fl (79-97) 12/11/20 06:05 MCH 28 pg (28-32) 12/11/20 06:05 MCHC 33 % (30-34) 12/11/20 06:05 RDW 18.0 % (13.2-15.2) H 12/11/20 06:05 Plt Count 200 K/mm3 (140-440) 12/11/20 06:05 Lymph % (Auto) 13.1 % (13.4-35.0) L 12/05/20 11:04 [place] % (Auto) 6.7 % (0.0-7.3) 12/05/20 11:04 Eos % (Auto) 2.2 % (0.0-4.3) 12/05/20 11:04 Baso % (Auto) 0.4 % (0.0-1.8) 12/05/20 11:04 Lymph # (Auto) 1.7 K/mm3 (1.2-5.4) 12/05/20 11:04 [place] # (Auto) 0.9 K/mm3 (0.0-0.8) H 12/05/20 11:04 Eos # (Auto) 0.3 K/mm3 (0.0-0.4) 12/05/20 11:04 Baso # (Auto) 0.1 K/mm3 (0.0-0.1) 12/05/20 11:04 Add Manual Diff Complete 12/04/20 05:40 Total Counted 100 12/04/20 05:40 Seg Neutrophils % 77.6 % (40.0-70.0) H 12/05/20 11:04 Seg Neuts % (Manual) 74.0 % (40.0-70.0) H 12/04/20 05:40 Band Neutrophils % 16.0 % 12/04/20 05:40 Lymphocytes % (Manual) 2.0 % (13.4-35.0) L 12/04/20 05:40 Monocytes % (Manual) 5.0 % (0.0-7.3) 12/04/20 05:40 Eosinophils % (Manual) 2.0 % (0.0-4.3) 12/04/20 05:40 Basophils % (Manual) 1.0 % (0.0-1.8) 12/04/20 05:40 Nucleated RBC % Not Reportable 12/04/20 05:40 Seg Neutrophils # 10.0 K/mm3 (1.8-7.7) H 12/05/20 11:04 Seg Neutrophils # Man 16.1 K/mm3 (1.8-7.7) H 12/04/20 05:40 Band Neutrophils # 3.5 K/mm3 12/04/20 05:40 Lymphocytes # (Manual) 0.4 K/mm3 (1.2-5.4) L 12/04/20 05:40 Abs React Lymphs (Man) 0.0 K/mm3 12/04/20 05:40 Monocytes # (Manual) 1.1 K/mm3 (0.0-0.8) H 12/04/20 05:40 Eosinophils # (Manual) 0.4 K/mm3 (0.0-0.4) 12/04/20 05:40 Basophils # (Manual) 0.2 K/mm3 (0.0-0.1) H 12/04/20 05:40 Metamyelocytes # 0.0 K/mm3 12/04/20 05:40 Myelocytes # 0.0 K/mm3 12/04/20 05:40 Promyelocytes # 0.0 K/mm3 12/04/20 05:40 Blast Cells # 0.0 K/mm3 12/04/20 05:40 WBC Morphology Not Reportable 12/04/20 05:40 Hypersegmented Neuts Not Reportable 12/04/20 05:40 Hyposegmented Neuts Not Reportable 12/04/20 05:40 Hypogranular Neuts Not Reportable 12/04/20 05:40 Smudge Cells Not Reportable 12/04/20 05:40 Toxic Granulation Not Reportable 12/04/20 05:40 Toxic Vacuolation Not Reportable 12/04/20 05:40 Dohle Bodies Not Reportable 12/04/20 05:40 Pelger-Huet Anomaly Not Reportable 12/04/20 05:40 Solomon Rods Not Reportable 12/04/20 05:40 Platelet Estimate Not Reportable 12/04/20 05:40 Clumped Platelets 1+ 12/04/20 05:40 Plt Clumps, EDTA Not Reportable 12/04/20 05:40 Large Platelets Not Reportable 12/04/20 05:40 Giant Platelets Not Reportable 12/04/20 05:40 Platelet Satelliting Not Reportable 12/04/20 05:40 Plt Morphology Comment Not Reportable 12/04/20 05:40 RBC Morphology Normal 12/04/20 05:40 Dimorphic RBCs Not Reportable 12/04/20 05:40 Polychromasia Not Reportable 12/04/20 05:40 Hypochromasia Not Reportable 12/04/20 05:40 Poikilocytosis Not Reportable 12/04/20 05:40 Anisocytosis Not Reportable 12/04/20 05:40 Microcytosis Not Reportable 12/04/20 05:40 Macrocytosis Not Reportable 12/04/20 05:40 Spherocytes Not Reportable 12/04/20 05:40 Pappenheimer Bodies Not Reportable 12/04/20 05:40 Sickle Cells Not Reportable 12/04/20 05:40 Target Cells Not Reportable 12/04/20 05:40 Tear Drop Cells Not Reportable 12/04/20 05:40 Ovalocytes Not Reportable 12/04/20 05:40 Helmet Cells Not Reportable 12/04/20 05:40 Merino-Danielson Bodies Not Reportable 12/04/20 05:40 [place] Rings Not Reportable 12/04/20 05:40 [place] Cells Not Reportable 12/04/20 05:40 Bite Cells Not Reportable 12/04/20 05:40 Crenated Cell Not Reportable 12/04/20 05:40 Elliptocytes Not Reportable 12/04/20 05:40 Acanthocytes (Spur) Not Reportable 12/04/20 05:40 Rouleaux Not Reportable 12/04/20 05:40 Hemoglobin C Crystals Not Reportable 12/04/20 05:40 Schistocytes Not Reportable 12/04/20 05:40 Malaria parasites Not Reportable 12/04/20 05:40 Charanjit Bodies Not Reportable 12/04/20 05:40 Hem Pathologist Commnt No 12/04/20 05:40 PT 13.9 Sec. (12.2-14.9) 12/07/20 04:00 INR 1.02 (0.87-1.13) 12/07/20 04:00 D-Dimer 1838.21 ng/mlDDU (0-234) H 12/04/20 10:41 ABG pH 7.453 (7.320-7.450) H 12/12/20 04:00 POC ABG pCO2 41.4 mmHg (32.0-48.0) 12/12/20 04:00 POC ABG pO2 79.3 mmHg (83-108) L 12/12/20 04:00 POC ABG HCO3 28.3 12/12/20 04:00 ABG O2 Saturation 95.5 (0-100) 12/12/20 04:00 POC ABG Base Excess 4.0 12/12/20 04:00 ABG Hemoglobin 9.3 (12.0-17.5) L 12/12/20 04:00 ABG Oxyhemoglobin 94.7 (94-98) 12/12/20 04:00 ABG Methemoglobin 0.3 (0.0-1.5) 12/12/20 04:00 ABG Sodium 139.0 mmol/L (136.0-145.0) 12/12/20 04:00 ABG Potassium 4.1 mmol/L (3.40-4.50) 12/12/20 04:00 ABG Chloride 102.0 mmol/L (98-107) 12/12/20 04:00 ABG Glucose 159 mg/dL (65-95) H 12/12/20 04:00 Carboxyhemoglobin 0.5 (0.5-1.5) 12/12/20 04:00 FiO2 % 40.0 12/12/20 04:00 Sodium 139 mmol/L (137-145) 12/11/20 06:05 Potassium 4.4 mmol/L (3.6-5.0) 12/11/20 06:05 Chloride 101.3 mmol/L (98-107) 12/11/20 06:05 Carbon Dioxide 28 mmol/L (22-30) 12/11/20 06:05 Anion Gap 14 mmol/L 12/11/20 06:05 BUN 33 mg/dL (7-17) H 12/11/20 06:05 Creatinine 0.6 mg/dL (0.6-1.2) 12/11/20 06:05 Estimated GFR > 60 ml/min 12/11/20 06:05 BUN/Creatinine Ratio 55 % 12/11/20 06:05 Glucose 158 mg/dL (65-100) H 12/11/20 06:05 POC Glucose 135 mg/dL (70-105) H 12/12/20 11:29 Calcium 9.2 mg/dL (8.4-10.2) 12/11/20 06:05 Phosphorus 3.60 mg/dL (2.5-4.5) 12/11/20 06:05 Magnesium 2.10 mg/dL (1.7-2.3) 12/11/20 06:05 Ferritin 399.0 ng/mL (10.0-200.0) H 12/04/20 10:41 Total Bilirubin 0.30 mg/dL (0.1-1.2) 12/04/20 05:40 Direct Bilirubin < 0.2 mg/dL (0-0.2) 11/29/20 07:48 Indirect Bilirubin 0.0 mg/dL 11/29/20 07:48 AST 19 units/L (5-40) 12/04/20 05:40 ALT 28 units/L (7-56) 12/04/20 05:40 Alkaline Phosphatase 93 units/L (35-129) 12/04/20 05:40 Lactate Dehydrogenase 386 units/L (91-180) H 12/04/20 10:41 Total Creatine Kinase 1132 units/L (30-135) H 11/30/20 14:12 CK-MB (CK-2) 14.6 ng/mL (0.0-4.0) H 11/30/20 14:12 CK-MB (CK-2) Rel Index 1.2 (0-4) 11/30/20 14:12 Troponin T < 0.010 ng/mL (0.00-0.029) 11/30/20 14:12 C-Reactive Protein 34.30 mg/dL (0.00-1.30) H 12/04/20 10:41 Total Protein 6.2 g/dL (6.3-8.2) L 12/04/20 05:40 Albumin 2.6 g/dL (3.9-5) L 12/04/20 05:40 Albumin/Globulin Ratio 0.7 % 12/04/20 05:40 HCG, Qual Negative (Negative) 11/29/20 07:48 Arterial Blood Glucose 159 mg/dL (65-95) H 12/12/20 04:00 Arterial Blood Ionized Calcium 4.8 mg/dL (4.6-5.3) 12/12/20 04:00 Urine Color Colorless (Yellow) 12/11/20 12: Urine Turbidity Clear (Clear) 12/11/20 12:22 Urine pH 5.0 (5.0-7.0) 12/11/20 12:22 Ur Specific [place] 1.005 (1.003-1.030) 12/11/20 12:22 Urine Protein <15 mg/dl mg/dL (Negative) 12/11/20 12:22 Urine Glucose (UA) Neg mg/dL (Negative) 12/11/20 12:22 Urine Ketones Neg mg/dL (Negative) 12/11/20 12:22 Urine Blood Sm (Negative) 12/11/20 12:22 Urine Nitrite Neg (Negative) 12/11/20 12:22 Urine Bilirubin Neg (Negative) 12/11/20 12:22 Urine Urobilinogen < 2.0 mg/dL (<2.0) 12/11/20 12:22 Ur Leukocyte Esterase Neg (Negative) 12/11/20 12:22 Urine WBC (Auto) < 1.0 /HPF (0.0-6.0) 12/11/20 12:22 Urine RBC (Auto) 11.0 /HPF (0.0-6.0) 12/11/20 12:22 U Epithel Cells (Auto) 1.0 /HPF (0-13.0) 12/11/20 12:22 Urine Bacteria (Auto) 1+ /HPF (Negative) 12/11/20 12:22 Urine WBC Clumps 3+ /HPF 12/04/20 07:30 RBC Casts 1 /LPF 12/11/20 12:22 WBC Casts 17 /LPF 12/04/20 07:30 Urine Mucus Few /HPF 12/11/20 12:22 Coronavirus (PCR) Positive (Negative) A 12/03/20 08:00 Microbiology: Microbiology 12/11/20 12:54 Peripheral/Venous Blood Culture - Preliminary NO GROWTH AFTER 24 HOURS 12/11/20 12:54 Peripheral/Venous Blood Culture - Preliminary NO GROWTH AFTER 24 HOURS 12/11/20 09:56 Urine,Dash Port Urine Culture - Preliminary NO GROWTH AFTER 24 HOURS Dash/IV: Voiding Method Indwelling Catheter Active Medications - Current Medications Current Medications: Generic Name Dose Route Start Last Admin Trade Name Freq PRN Reason Stop Dose Admin Acetaminophen 650 mg 12/04/20 00:39 12/10/20 05:24 Acetaminophen 325 Mg Tab PO 650 mg Q6H PRN Administration Fever >101 Albuterol 2.5 mg 11/29/20 15:22 Albuterol 2.5 Mg/3 Ml Nebu IH Q4HRT PRN Shortness Of Breath Albuterol/Ipratropium 1 ampul 12/07/20 20:00 12/12/20 09:33 Ipratropium/Albuterol Sulfate 3 Ml Ampul.Neb IH 1 ampul Q12HRT KRYSTAL Administration Lipase/Protease/Amylase 1 each 11/29/20 15:23 Lipase 10,500/Protease 25,000/Amylase 43,750 (Units) Dr Ariza FEEDTUBE PRN PRN For Clogged Feeding Tube Ascorbic Acid 500 mg 12/04/20 22:00 12/12/20 09:38 Ascorbic Acid 500 Mg Tab PO 500 mg BID KRYSTAL Administration Dextrose 50 ml 12/05/20 10:34 Dextrose 50% In Water (25gm) 50 Ml Syringe IV Q30MIN PRN Hypoglycemia Protocol Famotidine 20 mg 11/30/20 15:00 12/12/20 09:38 Famotidine 20 Mg/2 Ml Inj IV 20 mg BID KRYSTAL Administration Fentanyl 50 mcg 11/29/20 10:22 Fentanyl 100 Mcg/2 Ml Inj IV Q10MIN PRN ANALGESIA Fondaparinux 2.5 mg 11/29/20 22:00 12/11/20 22:49 Fondaparinux 2.5 Mg/0.5 Ml Inj SUB-Q 2.5 mg Q24H KRYSTAL Administration Gabapentin 600 mg 11/30/20 17:00 12/12/20 09:37 Gabapentin 500 Mg/10 Ml Oral Liqd PO 600 mg BID KRYSTAL Administration Hydrochlorothiazide 12.5 mg 12/10/20 10:00 12/12/20 09:38 Hydrochlorothiazide 12.5 Mg Cap PO 12.5 mg QDAY KRYSTAL Administration Hydrophilic Ointment 1 applic 12/01/20 08:54 Lip Therapy Vaseline TP Q2HR PRN Dry Lips Midazolam HCl 100 mg/ Sodium 100 mls @ 2 mls/hr 11/29/20 12:00 12/12/20 08:46 Chloride IV 5 mg/hr TITR KRYSTAL 5 mls/hr Administration Protocol 2 MG/HR Fentanyl Citrate 2,000 mcg in 100 mls @ 6.45 mls/hr 11/29/20 12:30 12/12/20 12:57 Fentanyl Drip Premix IV 4 mcg/kg/hr TITR RKYSTAL 25.8 mls/hr Administration Protocol 1 MCG/KG/HR Dexmedetomidine HCl 400 mcg/ 104 mls @ 6.885 mls/hr 12/08/20 16:00 12/12/20 09:24 Sodium Chloride IV 0.5 mcg/kg/hr TITRATE KRYSTAL 17.212 mls/hr Administration Protocol 0.2 MCG/KG/HR Propofol 1,000 mg in 100 mls @ 3.972 mls/hr 12/08/20 19:00 Diprivan 10 Mg/Ml IV TITR KRYSTAL Protocol 5 MCG/KG/MIN Vancomycin HCl 1,500 mg/ 530 mls @ 333.333 mls/hr 12/11/20 20:00 12/12/20 12:57 Sodium Chloride IV 333.333 mls/hr Q8H KRYSTAL Administration Insulin Human Regular 0 units 12/05/20 12:00 12/12/20 12:00 Insulin Regular, Human 100 Units/1 Ml SUB-Q Not Given Q6HR [facility] Protocol Midazolam HCl 2 mg 11/29/20 10:22 12/08/20 18:35 Midazolam 2 Mg/2 Ml Inj IV 2 mg Q10MIN PRN Administration Sedation Montelukast Sodium 10 mg 11/29/20 22:00 12/11/20 22:51 Montelukast 10 Mg Tab PO 10 mg HS KRYSTAL Administration Multi-Ingred Cream/Lotion/Oil/Oint 1 applic 12/01/20 08:54 Mineral Oil/Petrolatum, White Ophth Oint 3.5 Gm OU Q4HR PRN Dry Eye(s) Quetiapine Fumarate 150 mg 12/12/20 14:00 12/12/20 13:01 Quetiapine 100 Mg Tab PO 150 mg Q8H KRYSTAL Administration Senna/Docusate Sodium 1 tab 11/29/20 10:00 12/12/20 09:38 Sennosides/Docusate Sodium 8.6/50 Mg Tab FEEDTUBE 1 tab BID KRYSTAL Administration Simple Syrup 15 ml 11/29/20 15:23 Simple Syrup 15 Ml FEEDTUBE PRN PRN Hypoglycemia Simple Syrup 30 ml 11/29/20 15:23 Simple Syrup 15 Ml FEEDTUBE PRN PRN Hypoglycemia Sodium Bicarbonate 325 mg 11/29/20 15:23 Sodium Bicarbonate 325 Mg Tab FEEDTUBE PRN PRN For Clogged Feeding Tube Zinc Sulfate 220 mg 12/05/20 10:00 12/12/20 09:38 Zinc Sulfate 220 Mg Cap PO 220 mg QDAY KRYSTAL Administration Nutrition/Malnutrition Assess - Dietary Evaluation Nutrition/Malnutrition Findings: Nutrition Notes Start: 11/30/20 09:03 Freq: Status: Active Protocol: Document 12/07/20 10:14 (Rec: 12/07/20 10:17 [id number]) Nutrition Notes Initial or Follow up Reassessment Current Diagnosis Respiratory Failure Other Pertinent Diagnosis allergic reaction, alpha gal, hx HTN Current Diet Vital HP at 65 ml/hr Labs/Tests BUN 29 BG 148 Pertinent Medications Reviewed Height 5 ft 6 in Weight 132.4 kg [place] Body Weight (kg) 59.09 BMI 47.1 Weight Status Morbidly Obese Subjective/Other Information Pt suffered code blue yesterday. RN reports TF at goal and pt tolerating. Percent of energy/protein needs met: 84%/91% Burn Absent Trauma Absent Difficulty In Swallowing Current % PO Negligible Minimum of two criteria No Fluid Accumulation Mild (non-severe) #1 Nutrition Diagnosis Inadequate oral intake Diagnosis Progress(for reassessment Continues documentation) Is patient on ventilator? Yes Is Patient Ambulatory and/or Out of Bed No REE-([employer]-confined to bed) 2421.060 Kcal/Kg value to use for calculation 14 Approximate Energy Requirements Using 1854 kcal/Kg Calculation Used for Recommendations Kcal/kg Additional Notes Protein needs: 2.5 g/kg IBW , 148 g Fluid needs: 1ml/kcal Nutrition Intervention Change Diet Order: continue Nutrition Support: Vital High Protein at 65 ml/hr flush 45 ml q4h Kcal 1,560 Protein (gm) 135 Fluid (mL) 1,304 Goal #1 Meet at least 75% of protein and kcal needs via TF Anticipated Discharge Needs: Unable to determine at this time Follow-Up By: 12/13/20 Additional Comments F/u: TF tolerance - Attestation Statement I have reviewed and agreed w/ Malnutrition eval & tx plan: Yes <IZABELLA MEEKS - Last Filed: 12/13/20 09:06> History Interval history: I saw and evaluated the patient. Discussed with the nurse practitioner and agree with their findings and plan as documented in this note. Hospitalist Physical - Constitutional Vitals: Temp Pulse Resp BP Pulse Ox 98.9 F 92 H 16 133/73 98 12/13/20 07:00 12/13/20 08:19 12/13/20 08:19 12/13/20 08:19 12/13/20 08:19 HEART Score - HEART Score Troponin: Troponin T < 0.010 ng/mL (0.00-0.029) 11/30/20 14:12 Results - Labs CBC & Chem 7: 12/13/20 04:52 12/13/20 04:52 Labs: Laboratory Last Values WBC 9.1 K/mm3 (4.5-11.0) 12/13/20 04:52 RBC 3.24 M/mm3 (3.65-5.03) L 12/13/20 04:52 Hgb 9.0 gm/dl (10.1-14.3) L 12/13/20 04:52 Hct 27.6 % (30.3-42.9) L 12/13/20 04:52 MCV 85 fl (79-97) 12/13/20 04:52 MCH 28 pg (28-32) 12/13/20 04:52 MCHC 33 % (30-34) 12/13/20 04:52 RDW 17.9 % (13.2-15.2) H 12/13/20 04:52 Plt Count 222 K/mm3 (140-440) 12/13/20 04:52 Lymph % (Auto) 13.1 % (13.4-35.0) L 12/05/20 11:04 [place] % (Auto) 6.7 % (0.0-7.3) 12/05/20 11:04 Eos % (Auto) 2.2 % (0.0-4.3) 12/05/20 11:04 Baso % (Auto) 0.4 % (0.0-1.8) 12/05/20 11:04 Lymph # (Auto) 1.7 K/mm3 (1.2-5.4) 12/05/20 11:04 [place] # (Auto) 0.9 K/mm3 (0.0-0.8) H 12/05/20 11:04 Eos # (Auto) 0.3 K/mm3 (0.0-0.4) 12/05/20 11:04 Baso # (Auto) 0.1 K/mm3 (0.0-0.1) 12/05/20 11:04 Add Manual Diff Complete 12/04/20 05:40 Total Counted 100 12/04/20 05:40 Seg Neutrophils % 77.6 % (40.0-70.0) H 12/05/20 11:04 Seg Neuts % (Manual) 74.0 % (40.0-70.0) H 12/04/20 05:40 Band Neutrophils % 16.0 % 12/04/20 05:40 Lymphocytes % (Manual) 2.0 % (13.4-35.0) L 12/04/20 05:40 Monocytes % (Manual) 5.0 % (0.0-7.3) 12/04/20 05:40 Eosinophils % (Manual) 2.0 % (0.0-4.3) 12/04/20 05:40 Basophils % (Manual) 1.0 % (0.0-1.8) 12/04/20 05:40 Nucleated RBC % Not Reportable 12/04/20 05:40 Seg Neutrophils # 10.0 K/mm3 (1.8-7.7) H 12/05/20 11:04 Seg Neutrophils # Man 16.1 K/mm3 (1.8-7.7) H 12/04/20 05:40 Band Neutrophils # 3.5 K/mm3 12/04/20 05:40 Lymphocytes # (Manual) 0.4 K/mm3 (1.2-5.4) L 12/04/20 05:40 Abs React Lymphs (Man) 0.0 K/mm3 12/04/20 05:40 Monocytes # (Manual) 1.1 K/mm3 (0.0-0.8) H 12/04/20 05:40 Eosinophils # (Manual) 0.4 K/mm3 (0.0-0.4) 12/04/20 05:40 Basophils # (Manual) 0.2 K/mm3 (0.0-0.1) H 12/04/20 05:40 Metamyelocytes # 0.0 K/mm3 12/04/20 05:40 Myelocytes # 0.0 K/mm3 12/04/20 05:40 Promyelocytes # 0.0 K/mm3 12/04/20 05:40 Blast Cells # 0.0 K/mm3 12/04/20 05:40 WBC Morphology Not Reportable 12/04/20 05:40 Hypersegmented Neuts Not Reportable 12/04/20 05:40 Hyposegmented Neuts Not Reportable 12/04/20 05:40 Hypogranular Neuts Not Reportable 12/04/20 05:40 Smudge Cells Not Reportable 12/04/20 05:40 Toxic Granulation Not Reportable 12/04/20 05:40 Toxic Vacuolation Not Reportable 12/04/20 05:40 Dohle Bodies Not Reportable 12/04/20 05:40 Pelger-Huet Anomaly Not Reportable 12/04/20 05:40 Solomon Rods Not Reportable 12/04/20 05:40 Platelet Estimate Not Reportable 12/04/20 05:40 Clumped Platelets 1+ 12/04/20 05:40 Plt Clumps, EDTA Not Reportable 12/04/20 05:40 Large Platelets Not Reportable 12/04/20 05:40 Giant Platelets Not Reportable 12/04/20 05:40 Platelet Satelliting Not Reportable 12/04/20 05:40 Plt Morphology Comment Not Reportable 12/04/20 05:40 RBC Morphology Normal 12/04/20 05:40 Dimorphic RBCs Not Reportable 12/04/20 05:40 Polychromasia Not Reportable 12/04/20 05:40 Hypochromasia Not Reportable 12/04/20 05:40 Poikilocytosis Not Reportable 12/04/20 05:40 Anisocytosis Not Reportable 12/04/20 05:40 Microcytosis Not Reportable 12/04/20 05:40 Macrocytosis Not Reportable 12/04/20 05:40 Spherocytes Not Reportable 12/04/20 05:40 Pappenheimer Bodies Not Reportable 12/04/20 05:40 Sickle Cells Not Reportable 12/04/20 05:40 Target Cells Not Reportable 12/04/20 05:40 Tear Drop Cells Not Reportable 12/04/20 05:40 Ovalocytes Not Reportable 12/04/20 05:40 Helmet Cells Not Reportable 12/04/20 05:40 Merino-Danielson Bodies Not Reportable 12/04/20 05:40 [place] Rings Not Reportable 12/04/20 05:40 [place] Cells Not Reportable 12/04/20 05:40 Bite Cells Not Reportable 12/04/20 05:40 Crenated Cell Not Reportable 12/04/20 05:40 Elliptocytes Not Reportable 12/04/20 05:40 Acanthocytes (Spur) Not Reportable 12/04/20 05:40 Rouleaux Not Reportable 12/04/20 05:40 Hemoglobin C Crystals Not Reportable 12/04/20 05:40 Schistocytes Not Reportable 12/04/20 05:40 Malaria parasites Not Reportable 12/04/20 05:40 Charanjit Bodies Not Reportable 12/04/20 05:40 Hem Pathologist Commnt No 12/04/20 05:40 PT 13.9 Sec. (12.2-14.9) 12/07/20 04:00 INR 1.02 (0.87-1.13) 12/07/20 04:00 D-Dimer 1838.21 ng/mlDDU (0-234) H 12/04/20 10:41 ABG pH 7.453 (7.320-7.450) H 12/12/20 04:00 POC ABG pCO2 41.4 mmHg (32.0-48.0) 12/12/20 04:00 POC ABG pO2 79.3 mmHg (83-108) L 12/12/20 04:00 POC ABG HCO3 28.3 12/12/20 04:00 ABG O2 Saturation 95.5 (0-100) 12/12/20 04:00 POC ABG Base Excess 4.0 12/12/20 04:00 ABG Hemoglobin 9.3 (12.0-17.5) L 12/12/20 04:00 ABG Oxyhemoglobin 94.7 (94-98) 12/12/20 04:00 ABG Methemoglobin 0.3 (0.0-1.5) 12/12/20 04:00 ABG Sodium 139.0 mmol/L (136.0-145.0) 12/12/20 04:00 ABG Potassium 4.1 mmol/L (3.40-4.50) 12/12/20 04:00 ABG Chloride 102.0 mmol/L (98-107) 12/12/20 04:00 ABG Glucose 159 mg/dL (65-95) H 12/12/20 04:00 Carboxyhemoglobin 0.5 (0.5-1.5) 12/12/20 04:00 FiO2 % 40.0 12/12/20 04:00 Sodium 138 mmol/L (137-145) 12/13/20 04:52 Potassium 4.4 mmol/L (3.6-5.0) 12/13/20 04:52 Chloride 102.2 mmol/L (98-107) 12/13/20 04:52 Carbon Dioxide 30 mmol/L (22-30) 12/13/20 04:52 Anion Gap 10 mmol/L 12/13/20 04:52 BUN 27 mg/dL (7-17) H 12/13/20 04:52 Creatinine 0.6 mg/dL (0.6-1.2) 12/13/20 04:52 Estimated GFR > 60 ml/min 12/13/20 04:52 BUN/Creatinine Ratio 45 % 12/13/20 04:52 Glucose 157 mg/dL (65-100) H 12/13/20 04:52 POC Glucose 176 mg/dL (70-105) H 12/13/20 05:22 Calcium 9.0 mg/dL (8.4-10.2) 12/13/20 04:52 Phosphorus TNR 12/12/20 14:33 Magnesium 2.10 mg/dL (1.7-2.3) 12/11/20 06:05 Ferritin 399.0 ng/mL (10.0-200.0) H 12/04/20 10:41 Total Bilirubin 0.30 mg/dL (0.1-1.2) 12/13/20 04:52 Direct Bilirubin < 0.2 mg/dL (0-0.2) 11/29/20 07:48 Indirect Bilirubin 0.0 mg/dL 11/29/20 07:48 AST 16 units/L (5-40) 12/13/20 04:52 ALT 28 units/L (7-56) 12/13/20 04:52 Alkaline Phosphatase 59 units/L (35-129) 12/13/20 04:52 Lactate Dehydrogenase 386 units/L (91-180) H 12/04/20 10:41 Total Creatine Kinase 1132 units/L (30-135) H 11/30/20 14:12 CK-MB (CK-2) 14.6 ng/mL (0.0-4.0) H 11/30/20 14:12 CK-MB (CK-2) Rel Index 1.2 (0-4) 11/30/20 14:12 Troponin T < 0.010 ng/mL (0.00-0.029) 11/30/20 14:12 C-Reactive Protein 34.30 mg/dL (0.00-1.30) H 12/04/20 10:41 Total Protein 6.5 g/dL (6.3-8.2) 12/13/20 04:52 Albumin 2.9 g/dL (3.9-5) L 12/13/20 04:52 Albumin/Globulin Ratio 0.8 % 12/13/20 04:52 HCG, Qual Negative (Negative) 11/29/20 07:48 Arterial Blood Glucose 159 mg/dL (65-95) H 12/12/20 04:00 Arterial Blood Ionized Calcium 4.8 mg/dL (4.6-5.3) 12/12/20 04:00 Urine Color Colorless (Yellow) 12/11/20 12:22 Urine Turbidity Clear (Clear) 12/11/20 12:22 Urine pH 5.0 (5.0-7.0) 12/11/20 12:22 Ur Specific [place] 1.005 (1.003-1.030) 12/11/20 12:22 Urine Protein <15 mg/dl mg/dL (Negative) 12/11/20 12:22 Urine Glucose (UA) Neg mg/dL (Negative) 12/11/20 12:22 Urine Ketones Neg mg/dL (Negative) 12/11/20 12:22 Urine Blood Sm (Negative) 12/11/20 12:22 Urine Nitrite Neg (Negative) 12/11/20 12:22 Urine Bilirubin Neg (Negative) 12/11/20 12:22 Urine Urobilinogen < 2.0 mg/dL (<2.0) 12/11/20 12:22 Ur Leukocyte Esterase Neg (Negative) 12/11/20 12:22 Urine WBC (Auto) < 1.0 /HPF (0.0-6.0) 12/11/20 12:22 Urine RBC (Auto) 11.0 /HPF (0.0-6.0) 12/11/20 12:22 U Epithel Cells (Auto) 1.0 /HPF (0-13.0) 12/11/20 12:22 Urine Bacteria (Auto) 1+ /HPF (Negative) 12/11/20 12:22 Urine WBC Clumps 3+ /HPF 12/04/20 07:30 RBC Casts 1 /LPF 12/11/20 12:22 WBC Casts 17 /LPF 12/04/20 07:30 Urine Mucus Few /HPF 12/11/20 12:22 Vancomycin Trough 30.6 ug/mL (5.0-20.0) H 12/12/20 18:47 Coronavirus (PCR) Positive (Negative) A 12/03/20 08:00 Microbiology: Microbiology 12/11/20 12:54 Peripheral/Venous Blood Culture - Preliminary NO GROWTH AFTER 24 HOURS 12/11/20 12:54 Peripheral/Venous Blood Culture - Preliminary NO GROWTH AFTER 24 HOURS 12/11/20 09:56 Urine,Dash Port Urine Culture - Preliminary NO GROWTH AFTER 24 HOURS Dash/IV: Voiding Method Indwelling Catheter Active Medications - Current Medications Current Medications: Generic Name Dose Route Start Last Admin Trade Name Freq PRN Reason Stop Dose Admin Acetaminophen 650 mg 12/04/20 00:39 12/10/20 05:24 Acetaminophen 325 Mg Tab PO 650 mg Q6H PRN Administration Fever >101 Albuterol 2.5 mg 11/29/20 15:22 Albuterol 2.5 Mg/3 Ml Nebu IH Q4HRT PRN Shortness Of Breath Albuterol/Ipratropium 1 ampul 12/07/20 20:00 12/13/20 08:24 Ipratropium/Albuterol Sulfate 3 Ml Ampul.Neb IH 1 ampul Q12HRT KRYSTAL Administration Lipase/Protease/Amylase 1 each 11/29/20 15:23 Lipase 10,500/Protease 25,000/Amylase 43,750 (Units) Dr Ariza FEEDTUBE PRN PRN For Clogged Feeding Tube Ascorbic Acid 500 mg 12/04/20 22:00 12/12/20 22:01 Ascorbic Acid 500 Mg Tab PO 500 mg BID KRYSTAL Administration Dextrose 50 ml 12/05/20 10:34 Dextrose 50% In Water (25gm) 50 Ml Syringe IV Q30MIN PRN Hypoglycemia Protocol Famotidine 20 mg 11/30/20 15:00 12/12/20 23:45 Famotidine 20 Mg/2 Ml Inj IV 20 mg BID KRYSTAL Administration Fentanyl 50 mcg 11/29/20 10:22 Fentanyl 100 Mcg/2 Ml Inj IV Q10MIN PRN ANALGESIA Fondaparinux 2.5 mg 11/29/20 22:00 12/12/20 22:01 Fondaparinux 2.5 Mg/0.5 Ml Inj SUB-Q 2.5 mg Q24H KRYSTAL Administration Gabapentin 600 mg 11/30/20 17:00 12/12/20 23:45 Gabapentin 500 Mg/10 Ml Oral Liqd PO 600 mg BID KRYSTAL Administration Hydrochlorothiazide 12.5 mg 12/10/20 10:00 12/12/20 09:38 Hydrochlorothiazide 12.5 Mg Cap PO 12.5 mg QDAY KRYSTAL Administration Hydrophilic Ointment 1 applic 12/01/20 08:54 Lip Therapy Vaseline TP Q2HR PRN Dry Lips Midazolam HCl 100 mg/ Sodium 100 mls @ 2 mls/hr 11/29/20 12:00 12/13/20 04:06 Chloride IV 4 mg/hr TITR KRYSTAL 4 mls/hr Titration Protocol 2 MG/HR Fentanyl Citrate 2,000 mcg in 100 mls @ 6.45 mls/hr 11/29/20 12:30 12/13/20 05:30 Fentanyl Drip Premix IV 3 mcg/kg/hr TITR KRYSTAL 19.35 mls/hr Administration Protocol 1 MCG/KG/HR Dexmedetomidine HCl 400 mcg/ 104 mls @ 6.885 mls/hr 12/08/20 16:00 12/13/20 04:09 Sodium Chloride IV 0.5 mcg/kg/hr TITRATE KRYSTAL 17.212 mls/hr Administration Protocol 0.2 MCG/KG/HR Propofol 1,000 mg in 100 mls @ 3.972 mls/hr 12/08/20 19:00 Diprivan 10 Mg/Ml IV TITR KRYSTAL Protocol 5 MCG/KG/MIN Piperacillin Sod/Tazobactam Sod 3.375 gm in 50 mls @ 100 mls/hr 12/12/20 18:00 12/13/20 04:09 Zosyn/Ns 3.375gm/50ml IV 100 mls/hr Q8H KRYSTAL Administration Insulin Human Regular 0 units 12/05/20 12:00 12/13/20 06:14 Insulin Regular, Human 100 Units/1 Ml SUB-Q Not Given Q6HR KRYSTAL Protocol Midazolam HCl 2 mg 11/29/20 10:22 12/08/20 18:35 Midazolam 2 Mg/2 Ml Inj IV 2 mg Q10MIN PRN Administration Sedation Montelukast Sodium 10 mg 11/29/20 22:00 12/12/20 22:01 Montelukast 10 Mg Tab PO 10 mg HS KRYSTAL Administration Multi-Ingred Cream/Lotion/Oil/Oint 1 applic 12/01/20 08:54 Mineral Oil/Petrolatum, White Ophth Oint 3.5 Gm OU Q4HR PRN Dry Eye(s) Quetiapine Fumarate 150 mg 12/12/20 14:00 12/13/20 06:17 Quetiapine 100 Mg Tab PO 150 mg Q8H KRYSTAL Administration Senna/Docusate Sodium 1 tab 11/29/20 10:00 12/12/20 22:01 Sennosides/Docusate Sodium 8.6/50 Mg Tab FEEDTUBE 1 tab BID KRYSTAL Administration Simple Syrup 15 ml 11/29/20 15:23 Simple Syrup 15 Ml FEEDTUBE PRN PRN Hypoglycemia Simple Syrup 30 ml 11/29/20 15:23 Simple Syrup 15 Ml FEEDTUBE PRN PRN Hypoglycemia Sodium Bicarbonate 325 mg 11/29/20 15:23 Sodium Bicarbonate 325 Mg Tab FEEDTUBE PRN PRN For Clogged Feeding Tube Zinc Sulfate 220 mg 12/05/20 10:00 12/12/20 09:38 Zinc Sulfate 220 Mg Cap PO 220 mg QDAY KRYSTAL Administration Nutrition/Malnutrition Assess - Dietary Evaluation Nutrition/Malnutrition Findings: Nutrition Notes Start: 11/30/20 09:03 Freq: Status: Active Protocol: Document 12/07/20 10:14 (Rec: 12/07/20 10:17 [id number]) Nutrition Notes Initial or Follow up Reassessment Current Diagnosis Respiratory Failure Other Pertinent Diagnosis allergic reaction, alpha gal, hx HTN Current Diet Vital HP at 65 ml/hr Labs/Tests BUN 29 BG 148 Pertinent Medications Reviewed Height 5 ft 6 in Weight 132.4 kg [place] Body Weight (kg) 59.09 BMI 47.1 Weight Status Morbidly Obese Subjective/Other Information Pt suffered code blue yesterday. RN reports TF at goal and pt tolerating. Percent of energy/protein needs met: 84%/91% Burn Absent Trauma Absent Difficulty In Swallowing Current % PO Negligible Minimum of two criteria No Fluid Accumulation Mild (non-severe) #1 Nutrition Diagnosis Inadequate oral intake Diagnosis Progress(for reassessment Continues documentation) Is patient on ventilator? Yes Is Patient Ambulatory and/or Out of Bed No REE-([facility]-confined to bed) 2421.060 Kcal/Kg value to use for calculation 14 Approximate Energy Requirements Using 1854 kcal/Kg Calculation Used for Recommendations Kcal/kg Additional Notes Protein needs: 2.5 g/kg IBW , 148 g Fluid needs: 1ml/kcal Nutrition Intervention Change Diet Order: continue Nutrition Support: Vital High Protein at 65 ml/hr flush 45 ml q4h Kcal 1,560 Protein (gm) 135 Fluid (mL) 1,304 Goal #1 Meet at least 75% of protein and kcal needs via TF Anticipated Discharge Needs: Unable to determine at this time Follow-Up By: 12/13/20 Additional Comments F/u: TF tolerance
--- NOTE | 2020-12-12 15:11 | Progress Note ---
Assessment and Plan Cultures: Today 11/29/2020 usual respiratory malik Blood culture 12/04/2020 no growth Urine culture 12/04/2020 E. coli Blood culture 12/11/2020 pending A/P: 40-year-old female past medical history of severe allergic reactions, morbid obesity, hypertension admitted with COVID-19 and respiratory failure #Sepsis: Remains with low-grade fever. Likely due to COVID/UTI #Critical COVID-19: has been positive for >3 weeks. No therapy indicated at this time. #Bilateral pneumonia: Possible secondary infection, recent development with new leukocytosis and fevers. #Acute sepsis: Present leukocytosis and fevers. Possibly secondary to pneum onia. #Acute hypoxic respiratory failure: On the vent #Severe allergic history Recs: -Obtain respiratory culture, MRSA PCR -Continue vancomycin IV for now -Add Levaquin IV for now -Completed Cefepime for 7 days -Monitor renal function -No acute Covid therapy indicated given duration since onset Guarded prognosis Jody Larios MD [facility] ([facility]) Office [phone] Subjective Date of service: 12/12/20 Principal diagnosis: Acute Hypoxemic Respiratory Failure; Angioedema;Obesity; leukocytosis Interval history: Remains critically ill, intubated, FiO2 35%, PEEP of 6, noted low-grade fever. Objective - Exam Narrative Exam: Physical exam deferred to minimize COVID-19 transmission during pandemic. - Constitutional Vitals: Vital Signs Temp Pulse Resp BP Pulse Ox 98.6 F 68 17 121/63 94 12/12/20 12:00 12/12/20 14:59 12/12/20 10:00 12/12/20 14:59 12/12/20 14:59 Temperature -Last 24 Hours Temperature 98.6 F Temperature 98.8 F Temperature 99.9 F Temperature 100 F Temperature 100.2 F Temperature 99 F - Labs CBC & Chem 7: 12/11/20 06:05 12/11/20 06:05 Labs: Abnormal lab results 12/11/20 12/11/20 12/12/20 Range/Units 18:07 23:30 04:00 ABG pH 7.453 H (7.320-7.450) POC ABG pO2 79.3 L (83-108) mmHg ABG Hemoglobin 9.3 L (12.0-17.5) ABG Glucose 159 H (65-95) mg/dL POC Glucose 152 H 144 H (70-105) mg/dL Arterial Blood Glucose 159 H (65-95) mg/dL 12/12/20 12/12/20 Range/Units 04:27 11:29 ABG pH (7.320-7.450) POC ABG pO2 (83-108) mmHg ABG Hemoglobin (12.0-17.5) ABG Glucose (65-95) mg/dL POC Glucose 146 H 135 H (70-105) mg/dL Arterial Blood Glucose (65-95) mg/dL
[2020-12-12 15:53] LABS: BUN/Creatinine Ratio TNR; Blood Urea Nitrogen TNR mg/dL (7-17)
[2020-12-12 15:54] LABS: Calcium TNR mg/dL (8.4-10.2); Hemolysis Index TNR
[2020-12-12] MEDS: PIPERACILLIN/TAZOBACTAM 3.375 3.375 GM/50 ML BAG IV SCH (18:25)
[2020-12-12 19:17] LABS: Hematocrit 29.3 % (30.3-42.9); Hemoglobin 9.3 gm/dl (10.1-14.3); Mean Corpuscular HGB Conc 32 % (30-34); Mean Corpuscular Volume 87 fl (79-97); Platelet Count 216 K/mm3 (140-440); Red Blood Count 3.38 M/mm3 (3.65-5.03); Red Cell Distribution Width 18.8 % (13.2-15.2)
[2020-12-12] MEDS: MONTELUKAST 10 MG TAB PO SCH (22:01)
[2020-12-12] MEDS: FONDAPARINUX 2.5 MG/0.5 ML INJ SUB-Q SCH (22:01)
--- NOTE | 2020-12-12 23:12 | Consultation ---
History of Present Illness Consult date: 12/12/20 Reason for Consult: Altered Mental Status Chief complaint: Altered Mental Status History of present illness: 40 yo female with htn, migraine d/o, alpha gal syndrome, wh presnted initially with concerns for an allergic reaction. She is noted with encephalopathy in the setting of underlying infection/inflammation. She underwent a LP which showed wbc 25 and 92% lymphs. She continues to remain encephalopathic. Per RN, the fentanly was turned off this morning at 11 am. Noted with no clinical seizure activity. Past History Past Medical History: hypertension, migraines, other (Anxiety disorder, peripheral neuropathy, alpha gal syndrome, hereditary angioedema) Past Surgical History: hysterectomy, Other (History of tracheostomy) Social history: denies: smoking, alcohol abuse, prescription drug abuse Family history: no significant family history Medications and Allergies Allergies Allergy/AdvReac Type Severity Reaction Status Date / Time ciprofloxacin Allergy Unknown Verified 03/12/16 14:14 gelatin Allergy Unknown Verified 03/12/16 14:14 levofloxacin [From Levaquin] Allergy Unknown Verified 03/12/16 14:14 methylprednisolone Allergy Anaphylaxis Verified 11/30/20 16:25 [From Solu-Medrol] Pork/Porcine Containing Allergy Unknown Verified 03/12/16 14:14 Products Home Medications Medication Instructions Recorded Confirmed Last Taken Type EPINEPHrine [Epipen 2-Sam] 0.3 mg IJ ONCE #1 auto.injct 03/12/16 09/24/16 09/14/16 Rx 0.3mg Gabapentin 600 mg PO BID 09/24/16 09/24/16 09/22/16 22:00 History ALPRAZolam [Xanax TAB] 1 mg PO PRN PRN 09/25/16 09/25/16 Unknown History Ambien 10 mg PO HS 09/25/16 09/25/16 Unknown History Doxepin 75 mg PO BID 09/25/16 09/25/16 Unknown History Hydrochlorothiazide 25 mg PO DAILY 09/25/16 09/25/16 Unknown History Montelukast [Singulair] 10 mg PO HS 09/25/16 09/25/16 Unknown History Active Meds: Active Medications Acetaminophen (Acetaminophen 325 Mg Tab) 650 mg PO Q6H PRN PRN Reason: Fever >101 Last Admin: 12/10/20 05:24 Dose: 650 mg Documented by: Albuterol (Albuterol 2.5 Mg/3 Ml Nebu) 2.5 mg IH Q4HRT PRN PRN Reason: Shortness Of Breath Albuterol/Ipratropium (Ipratropium/Albuterol Sulfate 3 Ml Ampul.Neb) [address] [facility] Last Admin: 12/12/20 09:33 Dose: 1 ampul Documented by: Lipase/Protease/Amylase (Lipase 10,500/Protease 25,000/Amylase 43,750 (Units) Dr Cap) 1 each FEEDTUBE PRN PRN PRN Reason: For Clogged Feeding Tube Ascorbic Acid (Ascorbic Acid 500 Mg Tab) [address] [facility] Last Admin: 12/12/20 22:01 Dose: 500 mg Documented by: Dextrose (Dextrose 50% In Water (25gm) 50 Ml Syringe) 50 ml IV Q30MIN PRN; Protocol PRN Reason: Hypoglycemia Famotidine (Famotidine 20 Mg/2 Ml Inj) [address] [facility] Last Admin: 12/12/20 09:38 Dose: 20 mg Documented by: Fentanyl (Fentanyl 100 Mcg/2 Ml Inj) 50 mcg IV Q10MIN PRN PRN Reason: ANALGESIA Fondaparinux (Fondaparinux 2.5 Mg/0.5 Ml Inj) 2.5 mg SUB-Q Q24H [facility] Last Admin: 12/12/20 22:01 Dose: 2.5 mg Documented by: Gabapentin (Gabapentin 500 Mg/10 Ml Oral Liqd) [address] [facility] Last Admin: 12/12/20 09:37 Dose: 600 mg Documented by: Hydrochlorothiazide (Hydrochlorothiazide 12.5 Mg Cap) 12.[address] [facility] Last Admin: 12/12/20 09:38 Dose: 12.5 mg Documented by: Hydrophilic Ointment (Lip Therapy Vaseline) 1 applic TP Q2HR PRN PRN Reason: Dry Lips Midazolam HCl 100 mg/ Sodium (Chloride) 100 mls @ 2 mls/hr IV TITR [facility]; Protocol Last Admin: 12/12/20 08:46 Dose: 5 mg/hr, 5 mls/hr Documented by: Fentanyl Citrate (Fentanyl Drip Premix) 2,000 mcg in 100 mls @ 6.45 mls/hr IV TITR [facility]; Protocol Last Titration: 12/12/20 22:08 Dose: 4 mcg/kg/hr, 25.8 mls/hr Documented by: Dexmedetomidine HCl 400 mcg/ (Sodium Chloride) 104 mls @ 6.885 mls/hr IV TITRATE [facility]; Protocol Last Admin: 12/12/20 22:30 Dose: 0.6 mcg/kg/hr, 20.654 mls/hr Documented by: Propofol (Diprivan 10 Mg/Ml) 1,000 mg in 100 mls @ 3.972 mls/hr IV TITR [facility]; Protocol Vancomycin HCl 1,500 mg/ (Sodium Chloride) 530 mls @ 333.333 mls/hr IV Q8H [facility] Last Admin: 12/12/20 19:51 Dose: 333.333 mls/hr Documented by: Piperacillin Sod/Tazobactam Sod (Zosyn/Ns 3.375gm/50ml) 3.375 gm in 50 mls @ 100 mls/hr IV Q8H [facility] Last Admin: 12/12/20 18:25 Dose: 100 mls/hr Documented by: Insulin Human Regular (Insulin Regular, Human 100 Units/1 Ml) 0 units SUB-Q Q6HR [facility]; Protocol Last Admin: 12/12/20 18:24 Dose: Not Given Documented by: Midazolam HCl (Midazolam 2 Mg/2 Ml Inj) 2 mg IV Q10MIN PRN PRN Reason: Sedation Last Admin: 12/08/20 18:35 Dose: 2 mg Documented by: Montelukast Sodium (Montelukast 10 Mg Tab) [address] [facility] Last Admin: 12/12/20 22:01 Dose: 10 mg Documented by: Multi-Ingred Cream/Lotion/Oil/Oint (Mineral Oil/Petrolatum, White Ophth Oint 3.5 Gm) 1 applic OU Q4HR PRN PRN Reason: Dry Eye(s) Quetiapine Fumarate (Quetiapine 100 Mg Tab) [address] [facility] Last Admin: 12/12/20 22:01 Dose: 150 mg Documented by: Senna/Docusate Sodium (Sennosides/Docusate Sodium 8.6/50 Mg Tab) [address] [facility] Last Admin: 12/12/20 22:01 Dose: 1 tab Documented by: Simple Syrup (Simple Syrup 15 Ml) 15 ml FEEDTUBE PRN PRN PRN Reason: Hypoglycemia Simple Syrup (Simple Syrup 15 Ml) 30 ml FEEDTUBE PRN PRN PRN Reason: Hypoglycemia Sodium Bicarbonate (Sodium Bicarbonate 325 Mg Tab) 325 mg FEEDTUBE PRN PRN PRN Reason: For Clogged Feeding Tube Zinc Sulfate (Zinc Sulfate 220 Mg Cap) 220 mg PO QDAY [facility] Last Admin: 12/12/20 09:38 Dose: 220 mg Documented by: Review of Systems ROS unobtainable: due to mental status Physical Examination - Vital Signs Vital Signs: Vital Signs Pulse Ox 98 11/29/20 06:35 - Physical Exam Narrative exam: Gen: nad, well-nourished, intubated; Head: normocephalic; Eyes: no gaze deviation; no ptosis appreciated; ENT: +ETT; CVS: warm and well-perfused; Pulm: no respiratory distress; +ETT GI: non-distended; Ext: no cyanosis at distal extremities; Skin: no acute rash at distal extremities; Heme: no bruising or ecchymosis at distal extremities; Neuro: comatose, intubated, CN 2 - sluggish reactive pupils, CN 3, 4, 6 - oculocephalic absent, CN 5/7 - corneal reflex intact, CN 9/10 - swallowing noted, CN 11/12 - pt cannot cooperate secondary to LOC; Motor/Sensory - 0/5 at BUEs; at least 1/5 at BLEs to tactile stimuli; Cerebellar/Gait - pt cannot cooperate secondary to LOC; NIHSS>25; Results - Laboratory Findings CBC and BMP: 12/12/20 18:47 12/12/20 14:33 Abnormal Lab Findings: Abnormal Labs 11/29/20 11/29/20 11/29/20 07:48 07:48 07:48 WBC 11.3 H RBC Hgb Hct RDW 18.0 H Lymph % (Auto) [place] # (Auto) Seg Neutrophils % Seg Neuts % (Manual) Lymphocytes % (Manual) Seg Neutrophils # 7.9 H Seg Neutrophils # Man Lymphocytes # (Manual) Monocytes # (Manual) Basophils # (Manual) D-Dimer ABG pH POC ABG pCO2 POC ABG pO2 ABG Hemoglobin ABG Oxyhemoglobin ABG Sodium ABG Potassium ABG Chloride ABG Glucose Carboxyhemoglobin Sodium 135 L Chloride Carbon Dioxide BUN Creatinine Glucose 204 H POC Glucose Calcium Ferritin Lactate Dehydrogenase Total Creatine Kinase CK-MB (CK-2) C-Reactive Protein Total Protein Albumin 3.7 L Arterial Blood Glucose Urine WBC (Auto) Vancomycin Trough Coronavirus (PCR) 11/29/20 11/30/20 11/30/20 11:37 04:27 11:22 WBC RBC Hgb Hct RDW Lymph % (Auto) [place] # (Auto) Seg Neutrophils % Seg Neuts % (Manual) Lymphocytes % (Manual) Seg Neutrophils # Seg Neutrophils # Man Lymphocytes # (Manual) Monocytes # (Manual) Basophils # (Manual) D-Dimer ABG pH 7.318 L POC ABG pCO2 POC ABG pO2 76.1 L 196.4 H ABG Hemoglobin 11.96 L ABG Oxyhemoglobin 92.4 L 98.5 H ABG Sodium 133.7 L ABG Potassium 5.0 H ABG Chloride ABG Glucose 171 H Carboxyhemoglobin 2.5 H Sodium Chloride Carbon Dioxide BUN Creatinine Glucose POC Glucose 157 H Calcium Ferritin Lactate Dehydrogenase Total Creatine Kinase CK-MB (CK-2) C-Reactive Protein Total Protein Albumin Arterial Blood Glucose 171 H Urine WBC (Auto) Vancomycin Trough Coronavirus (PCR) 11/30/20 11/30/20 11/30/20 14:12 17:19 23:42 WBC RBC Hgb Hct RDW Lymph % (Auto) [place] # (Auto) Seg Neutrophils % Seg Neuts % (Manual) Lymphocytes % (Manual) Seg Neutrophils # Seg Neutrophils # Man Lymphocytes # (Manual) Monocytes # (Manual) Basophils # (Manual) D-Dimer ABG pH POC ABG pCO2 POC ABG pO2 ABG Hemoglobin ABG Oxyhemoglobin ABG Sodium ABG Potassium ABG Chloride ABG Glucose Carboxyhemoglobin Sodium Chloride Carbon Dioxide BUN Creatinine Glucose POC Glucose 135 H 121 H Calcium Ferritin Lactate Dehydrogenase Total Creatine Kinase 1132 H CK-MB (CK-2) 14.6 H C-Reactive Protein Total Protein Albumin Arterial Blood Glucose Urine WBC (Auto) Vancomycin Trough Coronavirus (PCR) 12/01/20 12/01/20 12/01/20 03:30 04:21 06:16 WBC RBC Hgb Hct RDW Lymph % (Auto) [place] # (Auto) Seg Neutrophils % Seg Neuts % (Manual) Lymphocytes % (Manual) Seg Neutrophils # Seg Neutrophils # Man Lymphocytes # (Manual) Monocytes # (Manual) Basophils # (Manual) D-Dimer ABG pH POC ABG pCO2 POC ABG pO2 37.6 L 76.2 L ABG Hemoglobin 10.4 L 10.8 L ABG Oxyhemoglobin 76.4 L 93.7 L ABG Sodium 112.8 L 110.9 L ABG Potassium ABG Chloride ABG Glucose 103 H 107 H Carboxyhemoglobin Sodium Chloride Carbon Dioxide BUN Creatinine Glucose POC Glucose 129 H Calcium Ferritin Lactate Dehydrogenase Total Creatine Kinase CK-MB (CK-2) C-Reactive Protein Total Protein Albumin Arterial Blood Glucose 103 H 107 H Urine WBC (Auto) Vancomycin Trough Coronavirus (PCR) 12/02/20 12/02/20 12/02/20 04:00 12:02 17:10 WBC RBC Hgb Hct RDW Lymph % (Auto) [place] # (Auto) Seg Neutrophils % Seg Neuts % (Manual) Lymphocytes % (Manual) Seg Neutrophils # Seg Neutrophils # Man Lymphocytes # (Manual) Monocytes # (Manual) Basophils # (Manual) D-Dimer ABG pH 7.306 L POC ABG pCO2 58.0 H POC ABG pO2 58.5 L ABG Hemoglobin 11.4 L ABG Oxyhemoglobin 86.9 L ABG Sodium 124.7 L ABG Potassium ABG Chloride ABG Glucose 118 H Carboxyhemoglobin Sodium Chloride Carbon Dioxide BUN Creatinine Glucose POC Glucose 143 H 134 H Calcium Ferritin Lactate Dehydrogenase Total Creatine Kinase CK-MB (CK-2) C-Reactive Protein Total Protein Albumin Arterial Blood Glucose 118 H Urine WBC (Auto) Vancomycin Trough Coronavirus (PCR) 12/03/20 12/03/20 12/04/20 05:10 08:00 03:32 WBC RBC Hgb Hct RDW Lymph % (Auto) [place] # (Auto) Seg Neutrophils % Seg Neuts % (Manual) Lymphocytes % (Manual) Seg Neutrophils # Seg Neutrophils # Man Lymphocytes # (Manual) Monocytes # (Manual) Basophils # (Manual) D-Dimer ABG pH 7.272 L POC ABG pCO2 60.1 H 54.6 H POC ABG pO2 82.8 L 78.6 L ABG Hemoglobin 11.4 L ABG Oxyhemoglobin ABG Sodium 132.2 L 130.2 L ABG Potassium ABG Chloride ABG Glucose 166 H 164 H Carboxyhemoglobin 0.4 L Sodium Chloride Carbon Dioxide BUN Creatinine Glucose POC Glucose Calcium Ferritin Lactate Dehydrogenase Total Creatine Kinase CK-MB (CK-2) C-Reactive Protein Total Protein Albumin Arterial Blood Glucose 166 H 164 H Urine WBC (Auto) Vancomycin Trough Coronavirus (PCR) Positive A 12/04/20 12/04/20 12/04/20 05:40 05:40 07:30 WBC 21.7 H RBC Hgb Hct RDW 18.2 H Lymph % (Auto) [place] # (Auto) Seg Neutrophils % Seg Neuts % (Manual) 74.0 H Lymphocytes % (Manual) 2.0 L Seg Neutrophils # Seg Neutrophils # Man 16.1 H Lymphocytes # (Manual) 0.4 L Monocytes # (Manual) 1.1 H Basophils # (Manual) 0.2 H D-Dimer ABG pH POC ABG pCO2 POC ABG pO2 ABG Hemoglobin ABG Oxyhemoglobin ABG Sodium ABG Potassium ABG Chloride ABG Glucose Carboxyhemoglobin Sodium Chloride Carbon Dioxide BUN 26 H Creatinine 1.7 H D Glucose 157 H POC Glucose Calcium Ferritin Lactate Dehydrogenase Total Creatine Kinase CK-MB (CK-2) C-Reactive Protein Total Protein 6.2 L Albumin 2.6 L Arterial Blood Glucose Urine WBC (Auto) > 182.0 H Vancomycin Trough Coronavirus (PCR) 12/04/20 12/04/20 12/04/20 10:41 10:41 10:41 WBC RBC Hgb Hct RDW Lymph % (Auto) [place] # (Auto) Seg Neutrophils % Seg Neuts % (Manual) Lymphocytes % (Manual) Seg Neutrophils # Seg Neutrophils # Man Lymphocytes # (Manual) Monocytes # (Manual) Basophils # (Manual) D-Dimer 1838.21 H ABG pH POC ABG pCO2 POC ABG pO2 ABG Hemoglobin ABG Oxyhemoglobin ABG Sodium ABG Potassium ABG Chloride ABG Glucose Carboxyhemoglobin Sodium Chloride Carbon Dioxide BUN Creatinine Glucose POC Glucose Calcium Ferritin 399.0 H Lactate Dehydrogenase 386 H Total Creatine Kinase CK-MB (CK-2) C-Reactive Protein 34.30 H Total Protein Albumin Arterial Blood Glucose Urine WBC (Auto) Vancomycin Trough Coronavirus (PCR) 12/04/20 12/05/20 12/05/20 23:58 00:10 00:45 WBC RBC Hgb Hct RDW Lymph % (Auto) [place] # (Auto) Seg Neutrophils % Seg Neuts % (Manual) Lymphocytes % (Manual) Seg Neutrophils # Seg Neutrophils # Man Lymphocytes # (Manual) Monocytes # (Manual) Basophils # (Manual) D-Dimer ABG pH POC ABG pCO2 55.5 H POC ABG pO2 ABG Hemoglobin 11.2 L ABG Oxyhemoglobin ABG Sodium 135.0 L ABG Potassium 4.6 H ABG Chloride ABG Glucose 165 H Carboxyhemoglobin Sodium Chloride Carbon Dioxide BUN Creatinine Glucose POC Glucose 134 H 146 H Calcium Ferritin Lactate Dehydrogenase Total Creatine Kinase CK-MB (CK-2) C-Reactive Protein Total Protein Albumin Arterial Blood Glucose 165 H Urine WBC (Auto) Vancomycin Trough Coronavirus (PCR) 12/05/20 12/05/20 12/05/20 11:04 11:04 11:52 WBC 13.0 H RBC 3.61 L Hgb Hct RDW 18.8 H Lymph % (Auto) 13.1 L [place] # (Auto) 0.9 H Seg Neutrophils % 77.6 H Seg Neuts % (Manual) Lymphocytes % (Manual) Seg Neutrophils # 10.0 H Seg Neutrophils # Man Lymphocytes # (Manual) Monocytes # (Manual) Basophils # (Manual) D-Dimer ABG pH POC ABG pCO2 POC ABG pO2 ABG Hemoglobin ABG Oxyhemoglobin ABG Sodium ABG Potassium ABG Chloride ABG Glucose Carboxyhemoglobin Sodium Chloride Carbon Dioxide 31 H BUN 21 H Creatinine Glucose 152 H POC Glucose 121 H Calcium Ferritin Lactate Dehydrogenase Total Creatine Kinase CK-MB (CK-2) C-Reactive Protein Total Protein Albumin Arterial Blood Glucose Urine WBC (Auto) Vancomycin Trough Coronavirus (PCR) 12/05/20 12/05/20 12/06/20 17:31 23:37 04:00 WBC RBC Hgb Hct RDW Lymph % (Auto) [place] # (Auto) Seg Neutrophils % Seg Neuts % (Manual) Lymphocytes % (Manual) Seg Neutrophils # Seg Neutrophils # Man Lymphocytes # (Manual) Monocytes # (Manual) Basophils # (Manual) D-Dimer ABG pH 7.471 H POC ABG pCO2 POC ABG pO2 75.2 L ABG Hemoglobin 10.4 L ABG Oxyhemoglobin ABG Sodium 133.7 L ABG Potassium ABG Chloride ABG Glucose 120 H Carboxyhemoglobin Sodium Chloride Carbon Dioxide BUN Creatinine Glucose POC Glucose 148 H 133 H Calcium Ferritin Lactate Dehydrogenase Total Creatine Kinase CK-MB (CK-2) C-Reactive Protein Total Protein Albumin Arterial Blood Glucose 120 H Urine WBC (Auto) Vancomycin Trough Coronavirus (PCR) 12/06/20 12/06/20 12/06/20 05:07 05:07 05:09 WBC RBC 3.37 L Hgb 9.4 L Hct 28.4 L RDW 18.3 H Lymph % (Auto) [place] # (Auto) Seg Neutrophils % Seg Neuts % (Manual) Lymphocytes % (Manual) Seg Neutrophils # Seg Neutrophils # Man Lymphocytes # (Manual) Monocytes # (Manual) Basophils # (Manual) D-Dimer ABG pH POC ABG pCO2 POC ABG pO2 ABG Hemoglobin ABG Oxyhemoglobin ABG Sodium ABG Potassium ABG Chloride ABG Glucose Carboxyhemoglobin Sodium Chloride Carbon Dioxide 33 H BUN 25 H Creatinine Glucose 131 H POC Glucose 122 H Calcium Ferritin Lactate Dehydrogenase Total Creatine Kinase CK-MB (CK-2) C-Reactive Protein Total Protein Albumin Arterial Blood Glucose Urine WBC (Auto) Vancomycin Trough Coronavirus (PCR) 12/06/20 12/06/20 12/06/20 11:59 16:17 17:30 WBC RBC Hgb Hct RDW Lymph % (Auto) [place] # (Auto) Seg Neutrophils % Seg Neuts % (Manual) Lymphocytes % (Manual) Seg Neutrophils # Seg Neutrophils # Man Lymphocytes # (Manual) Monocytes # (Manual) Basophils # (Manual) D-Dimer ABG pH POC ABG pCO2 61.8 H POC ABG pO2 180.5 H ABG Hemoglobin ABG Oxyhemoglobin ABG Sodium ABG Potassium ABG Chloride ABG Glucose 142 H Carboxyhemoglobin Sodium Chloride Carbon Dioxide BUN Creatinine Glucose POC Glucose 120 H 114 H Calcium Ferritin Lactate Dehydrogenase Total Creatine Kinase CK-MB (CK-2) C-Reactive Protein Total Protein Albumin Arterial Blood Glucose 142 H Urine WBC (Auto) Vancomycin Trough Coronavirus (PCR) 12/06/20 12/07/20 12/07/20 23:09 04:00 04:00 WBC RBC 3.47 L Hgb 9.5 L Hct 29.5 L RDW 18.7 H Lymph % (Auto) [place] # (Auto) Seg Neutrophils % Seg Neuts % (Manual) Lymphocytes % (Manual) Seg Neutrophils # Seg Neutrophils # Man Lymphocytes # (Manual) Monocytes # (Manual) Basophils # (Manual) D-Dimer ABG pH POC ABG pCO2 55.9 H POC ABG pO2 ABG Hemoglobin 11.6 L ABG Oxyhemoglobin ABG Sodium 135.2 L ABG Potassium 4.7 H ABG Chloride ABG Glucose 141 H Carboxyhemoglobin Sodium Chloride Carbon Dioxide BUN Creatinine Glucose POC Glucose 112 H Calcium Ferritin Lactate Dehydrogenase Total Creatine Kinase CK-MB (CK-2) C-Reactive Protein Total Protein Albumin Arterial Blood Glucose 141 H Urine WBC (Auto) Vancomycin Trough Coronavirus (PCR) 12/07/20 12/07/20 12/07/20 05:00 05:28 12:20 WBC RBC Hgb Hct RDW Lymph % (Auto) [place] # (Auto) Seg Neutrophils % Seg Neuts % (Manual) Lymphocytes % (Manual) Seg Neutrophils # Seg Neutrophils # Man Lymphocytes # (Manual) Monocytes # (Manual) Basophils # (Manual) D-Dimer ABG pH POC ABG pCO2 POC ABG pO2 ABG Hemoglobin ABG Oxyhemoglobin ABG Sodium ABG Potassium ABG Chloride ABG Glucose Carboxyhemoglobin Sodium Chloride 96.6 L Carbon Dioxide 35 H BUN 29 H Creatinine Glucose 148 H POC Glucose 139 H 130 H Calcium Ferritin Lactate Dehydrogenase Total Creatine Kinase CK-MB (CK-2) C-Reactive Protein Total Protein Albumin Arterial Blood Glucose Urine WBC (Auto) Vancomycin Trough Coronavirus (PCR) 12/07/20 12/07/20 12/08/20 16:54 23:15 04:00 WBC RBC Hgb Hct RDW Lymph % (Auto) [place] # (Auto) Seg Neutrophils % Seg Neuts % (Manual) Lymphocytes % (Manual) Seg Neutrophils # Seg Neutrophils # Man Lymphocytes # (Manual) Monocytes # (Manual) Basophils # (Manual) D-Dimer ABG pH POC ABG pCO2 53.4 H POC ABG pO2 ABG Hemoglobin 11.4 L ABG Oxyhemoglobin ABG Sodium ABG Potassium ABG Chloride 96.0 L ABG Glucose 149 H Carboxyhemoglobin Sodium Chloride Carbon Dioxide BUN Creatinine Glucose POC Glucose 121 H 166 H Calcium Ferritin Lactate Dehydrogenase Total Creatine Kinase CK-MB (CK-2) C-Reactive Protein Total Protein Albumin Arterial Blood Glucose 149 H Urine WBC (Auto) Vancomycin Trough Coronavirus (PCR) 12/08/20 12/08/20 12/08/20 05:29 08:33 08:33 WBC 11.2 H RBC 3.64 L Hgb Hct 30.2 L RDW 18.1 H Lymph % (Auto) [place] # (Auto) Seg Neutrophils % Seg Neuts % (Manual) Lymphocytes % (Manual) Seg Neutrophils # Seg Neutrophils # Man Lymphocytes # (Manual) Monocytes # (Manual) Basophils # (Manual) D-Dimer ABG pH POC ABG pCO2 POC ABG pO2 ABG Hemoglobin ABG Oxyhemoglobin ABG Sodium ABG Potassium ABG Chloride ABG Glucose Carboxyhemoglobin Sodium Chloride 96.2 L Carbon Dioxide 33 H BUN 31 H Creatinine Glucose 166 H POC Glucose 128 H Calcium 10.3 H Ferritin Lactate Dehydrogenase Total Creatine Kinase CK-MB (CK-2) C-Reactive Protein Total Protein Albumin Arterial Blood Glucose Urine WBC (Auto) Vancomycin Trough Coronavirus (PCR) 12/08/20 12/08/20 12/09/20 11:53 16:46 00:20 WBC RBC Hgb Hct RDW Lymph % (Auto) [place] # (Auto) Seg Neutrophils % Seg Neuts % (Manual) Lymphocytes % (Manual) Seg Neutrophils # Seg Neutrophils # Man Lymphocytes # (Manual) Monocytes # (Manual) Basophils # (Manual) D-Dimer ABG pH POC ABG pCO2 POC ABG pO2 ABG Hemoglobin ABG Oxyhemoglobin ABG Sodium ABG Potassium ABG Chloride ABG Glucose Carboxyhemoglobin Sodium Chloride Carbon Dioxide BUN Creatinine Glucose POC Glucose 170 H 157 H 164 H Calcium Ferritin Lactate Dehydrogenase Total Creatine Kinase CK-MB (CK-2) C-Reactive Protein Total Protein Albumin Arterial Blood Glucose Urine WBC (Auto) Vancomycin Trough Coronavirus (PCR) 12/09/20 12/09/20 12/09/20 04:00 05:07 05:07 WBC 11.4 H RBC 3.53 L Hgb 9.8 L Hct 29.2 L RDW 17.8 H Lymph % (Auto) [place] # (Auto) Seg Neutrophils % Seg Neuts % (Manual) Lymphocytes % (Manual) Seg Neutrophils # Seg Neutrophils # Man Lymphocytes # (Manual) Monocytes # (Manual) Basophils # (Manual) D-Dimer ABG pH POC ABG pCO2 54.4 H POC ABG pO2 ABG Hemoglobin 10.5 L ABG Oxyhemoglobin ABG Sodium ABG Potassium ABG Chloride ABG Glucose 204 H Carboxyhemoglobin Sodium Chloride Carbon Dioxide 33 H BUN 38 H Creatinine Glucose 189 H POC Glucose Calcium Ferritin Lactate Dehydrogenase Total Creatine Kinase CK-MB (CK-2) C-Reactive Protein Total Protein Albumin Arterial Blood Glucose 204 H Urine WBC (Auto) Vancomycin Trough Coronavirus (PCR) 12/09/20 12/09/20 12/09/20 05:30 11:57 17:33 WBC RBC Hgb Hct RDW Lymph % (Auto) [place] # (Auto) Seg Neutrophils % Seg Neuts % (Manual) Lymphocytes % (Manual) Seg Neutrophils # Seg Neutrophils # Man Lymphocytes # (Manual) Monocytes # (Manual) Basophils # (Manual) D-Dimer ABG pH POC ABG pCO2 POC ABG pO2 ABG Hemoglobin ABG Oxyhemoglobin ABG Sodium ABG Potassium ABG Chloride ABG Glucose Carboxyhemoglobin Sodium Chloride Carbon Dioxide BUN Creatinine Glucose POC Glucose 190 H 153 H 180 H Calcium Ferritin Lactate Dehydrogenase Total Creatine Kinase CK-MB (CK-2) C-Reactive Protein Total Protein Albumin Arterial Blood Glucose Urine WBC (Auto) Vancomycin Trough Coronavirus (PCR) 12/10/20 12/10/20 12/10/20 00:28 03:16 05:03 WBC 11.5 H RBC 3.42 L Hgb 9.4 L Hct 29.3 L RDW 17.9 H Lymph % (Auto) [place] # (Auto) Seg Neutrophils % Seg Neuts % (Manual) Lymphocytes % (Manual) Seg Neutrophils # Seg Neutrophils # Man Lymphocytes # (Manual) Monocytes # (Manual) Basophils # (Manual) D-Dimer ABG pH 7.493 H POC ABG pCO2 POC ABG pO2 71.4 L ABG Hemoglobin 9.9 L ABG Oxyhemoglobin ABG Sodium ABG Potassium ABG Chloride ABG Glucose 181 H Carboxyhemoglobin 0.4 L Sodium Chloride Carbon Dioxide BUN Creatinine Glucose POC Glucose 173 H Calcium Ferritin Lactate Dehydrogenase Total Creatine Kinase CK-MB (CK-2) C-Reactive Protein Total Protein Albumin Arterial Blood Glucose 181 H Urine WBC (Auto) Vancomycin Trough Coronavirus (PCR) 12/10/20 12/10/20 12/10/20 05:03 05:48 11:41 WBC RBC Hgb Hct RDW Lymph % (Auto) [place] # (Auto) Seg Neutrophils % Seg Neuts % (Manual) Lymphocytes % (Manual) Seg Neutrophils # Seg Neutrophils # Man Lymphocytes # (Manual) Monocytes # (Manual) Basophils # (Manual) D-Dimer ABG pH POC ABG pCO2 POC ABG pO2 ABG Hemoglobin ABG Oxyhemoglobin ABG Sodium ABG Potassium ABG Chloride ABG Glucose Carboxyhemoglobin Sodium Chloride Carbon Dioxide BUN 34 H Creatinine Glucose 174 H POC Glucose 176 H 203 H Calcium Ferritin Lactate Dehydrogenase Total Creatine Kinase CK-MB (CK-2) C-Reactive Protein Total Protein Albumin Arterial Blood Glucose Urine WBC (Auto) Vancomycin Trough Coronavirus (PCR) 12/10/20 12/10/20 12/11/20 16:32 23:27 04:00 WBC RBC Hgb Hct RDW Lymph % (Auto) [place] # (Auto) Seg Neutrophils % Seg Neuts % (Manual) Lymphocytes % (Manual) Seg Neutrophils # Seg Neutrophils # Man Lymphocytes # (Manual) Monocytes # (Manual) Basophils # (Manual) D-Dimer ABG pH 7.517 H POC ABG pCO2 POC ABG pO2 ABG Hemoglobin 10.0 L ABG Oxyhemoglobin ABG Sodium ABG Potassium ABG Chloride ABG Glucose 175 H Carboxyhemoglobin 0.3 L Sodium Chloride Carbon Dioxide BUN Creatinine Glucose POC Glucose 148 H 186 H Calcium Ferritin Lactate Dehydrogenase Total Creatine Kinase CK-MB (CK-2) C-Reactive Protein Total Protein Albumin Arterial Blood Glucose 175 H Urine WBC (Auto) Vancomycin Trough Coronavirus (PCR) 12/11/20 12/11/20 12/11/20 05:18 06:05 06:05 WBC RBC 3.19 L Hgb 9.0 L Hct 27.1 L RDW 18.0 H Lymph % (Auto) [place] # (Auto) Seg Neutrophils % Seg Neuts % (Manual) Lymphocytes % (Manual) Seg Neutrophils # Seg Neutrophils # Man Lymphocytes # (Manual) Monocytes # (Manual) Basophils # (Manual) D-Dimer ABG pH POC ABG pCO2 POC ABG pO2 ABG Hemoglobin ABG Oxyhemoglobin ABG Sodium ABG Potassium ABG Chloride ABG Glucose Carboxyhemoglobin Sodium Chloride Carbon Dioxide BUN 33 H Creatinine Glucose 158 H POC Glucose 151 H Calcium Ferritin Lactate Dehydrogenase Total Creatine Kinase CK-MB (CK-2) C-Reactive Protein Total Protein Albumin Arterial Blood Glucose Urine WBC (Auto) Vancomycin Trough Coronavirus (PCR) 12/11/20 12/11/20 12/11/20 12:17 18:07 23:30 WBC RBC Hgb Hct RDW Lymph % (Auto) [place] # (Auto) Seg Neutrophils % Seg Neuts % (Manual) Lymphocytes % (Manual) Seg Neutrophils # Seg Neutrophils # Man Lymphocytes # (Manual) Monocytes # (Manual) Basophils # (Manual) D-Dimer ABG pH POC ABG pCO2 POC ABG pO2 ABG Hemoglobin ABG Oxyhemoglobin ABG Sodium ABG Potassium ABG Chloride ABG Glucose Carboxyhemoglobin Sodium Chloride Carbon Dioxide BUN Creatinine Glucose POC Glucose 163 H 152 H 144 H Calcium Ferritin Lactate Dehydrogenase Total Creatine Kinase CK-MB (CK-2) C-Reactive Protein Total Protein Albumin Arterial Blood Glucose Urine WBC (Auto) Vancomycin Trough Coronavirus (PCR) 12/12/20 12/12/20 12/12/20 04:00 04:27 11:29 WBC RBC Hgb Hct RDW Lymph % (Auto) [place] # (Auto) Seg Neutrophils % Seg Neuts % (Manual) Lymphocytes % (Manual) Seg Neutrophils # Seg Neutrophils # Man Lymphocytes # (Manual) Monocytes # (Manual) Basophils # (Manual) D-Dimer ABG pH 7.453 H POC ABG pCO2 POC ABG pO2 79.3 L ABG Hemoglobin 9.3 L ABG Oxyhemoglobin ABG Sodium ABG Potassium ABG Chloride ABG Glucose 159 H Carboxyhemoglobin Sodium Chloride Carbon Dioxide BUN Creatinine Glucose POC Glucose 146 H 135 H Calcium Ferritin Lactate Dehydrogenase Total Creatine Kinase CK-MB (CK-2) C-Reactive Protein Total Protein Albumin Arterial Blood Glucose 159 H Urine WBC (Auto) Vancomycin Trough Coronavirus (PCR) 12/12/20 12/12/20 12/12/20 17:31 18:47 18:47 WBC RBC 3.38 L Hgb 9.3 L Hct 29.3 L RDW 18.8 H Lymph % (Auto) [place] # (Auto) Seg Neutrophils % Seg Neuts % (Manual) Lymphocytes % (Manual) Seg Neutrophils # Seg Neutrophils # Man Lymphocytes # (Manual) Monocytes # (Manual) Basophils # (Manual) D-Dimer ABG pH POC ABG pCO2 POC ABG pO2 ABG Hemoglobin ABG Oxyhemoglobin ABG Sodium ABG Potassium ABG Chloride ABG Glucose Carboxyhemoglobin Sodium Chloride Carbon Dioxide BUN Creatinine Glucose POC Glucose 145 H Calcium Ferritin Lactate Dehydrogenase Total Creatine Kinase CK-MB (CK-2) C-Reactive Protein Total Protein Albumin Arterial Blood Glucose Urine WBC (Auto) Vancomycin Trough 30.6 H Coronavirus (PCR) Assessment and Plan 40 yo female with htn, migraine d/o, alpha gal syndrome, wh presnted initially with concerns for an allergic reaction. She is noted with encephalopathy in the setting of underlying infection/inflammation. She underwent a LP which showed wbc 25 and 92% lymphs. She continues to remain encephalopathic. Per RN, the fe ntanly was turned off this morning at 11 am. Noted with no clinical seizure activity. 1. Acute Metabolic Encephalopathy - in the setting of underlying infeciton/inflammation; consider underlying metabolic derangements including endocrine/nutritional, per primary team. 2. Toxic Encephalopathy - in the setting of fentanyl. 3. Acute Ischemic Stroke - confirm w/ NCHCT and then MRI Brain w/ wo contrast (when clinically stable). 4. Seizure - confirm with an EEG (if physician is available to read) o/w transfer to a facility w/ EEG reads. 5. Encephalitis / Vasculitis - recommend MRI brain w/ wo contrast; CTA Head w/ wo contrast (vs. MRA Head w/o contrast); if imaging is unremarkable, recommend repeat CSF studies, if patient is not improving. 6. Complex case with risk of high morbidity. Marco Samano MD Neurology [id number]
[2020-12-13] MEDS: fentaNYL DRIP Premix 2,000 MCG/100 ML BAG IV SCH ×4 (00:58→21:19)
[2020-12-13] MEDS: IPRATROPIUM/ALBUTEROL SULFATE 3 ML AMPUL.NEB IH SCH ×3 (01:48→20:02)
[2020-12-13] MEDS: PIPERACILLIN/TAZOBACTAM 3.375 3.375 GM/50 ML BAG IV SCH (04:09)
[2020-12-13] MEDS: VANCOMYCIN 1,500 MG in SODIUM CHLORIDE 0.9% 500 ML 500 ML IV SCH (05:30)
[2020-12-13 05:34] LABS: Hematocrit 27.6 % (30.3-42.9); Mean Corpuscular HGB Conc 33 % (30-34); Mean Corpuscular Volume 85 fl (79-97); Platelet Count 222 K/mm3 (140-440); Red Blood Count 3.24 M/mm3 (3.65-5.03); Red Cell Distribution Width 17.9 % (13.2-15.2)
[2020-12-13 05:46] LABS: Alanine Aminotransferase 28 units/L (7-56); Albumin 2.9 g/dL (3.9-5); Blood Urea Nitrogen 27 mg/dL (7-17); Hemolysis Index 15
[2020-12-13 06:03] LABS: BUN/Creatinine Ratio 45
[2020-12-13] MEDS: INSULIN REGULAR, HUMAN 100 UNITS/1 ML SUB-Q SCH ×2 (06:14→13:08)
[2020-12-13] MEDS: QUEtiapine 100 MG TAB PO SCH ×3 (06:17→21:04)
[2020-12-13] MEDS: MIDAZOLAM 100 MG in SODIUM CHLORIDE 0.9% 80 ML IV SCH (09:00)
--- NOTE | 2020-12-13 09:25 | Progress Note ---
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 Neuro: h/o migraines, peripheral neuropathy; AGITATION -Sedated with DEX ON SCHEDULED JELANI-HOME MED SEROQUEL PO DUE TO SEDATION -Avoid delirium -Bilateral restraints for safety Cardio: ST,h/o HTN, s/p hypertensive urgency, s/p cardiac arrest -S/p Cardene drip -Blood pressure monitoring per protocol -HOME HCTZ -S/p respiratory leading to cardiac arrest on 12/06 Resp: Acute hypoxic respiratory failure, severe tracheal stenosis, bronchial asthma exacerbation -Patient was intubated in the emergency department for ventilation support due to severe angioedema- HAS BEEN INTUBATED OVER 40 TIMES AND HAS HAD A TRACH -CCM consulted, appreciate recommendations -VAP bundle -Daily SBT trial when appropriate -SPO2 monitoring -Daily CXR and ABG -A.m. vent settings: AC r rate 16, tidal volume 450, PEEP of 8 5% FiO2 SEE RT NOTES FOR WEANING GOAL IS CPAP FOR 24 HOURS- THEN EXTUBATED HIGH RISK EXTUBATION DUE TO ANGIOEDEMA AND NUMEROUS INTUBATION -Intubated with 6 oett at 20 at the lips GI: Morbid obesity -Nutrition consulted -Tube feedings at goal -Bowel regimen with Senokot -PPI : Acute kidney injury 2/2 Vasomotor nephropathy -Presented with a BUN/creatinine of 0.8/10 -Daily weights -Avoid nephrotoxic medications -Renally dose medications -Dash -Trend BMP ID: Acute sepsis, hereditary idiopathic angioedema and urticia, Alpha gal syndrome, COVID-19 infection, allergic reaction, Ecoli UTI -Infectious disease consulted, appreciate recommendations -COMPLETED TX FOR UTI -h/o multiple intubations and tracheostomy in the past, patient has multiple allergies -Outpatient retail agent/ENT follow-up upon discharge -Per the patient has been positive for COVID-19 for approximately 20 days prior to admission -ABX per ID: Escalated to cefepime from azithromycin and ceftriaxone -Droplet/agitation precautions -Follow WBC and culture data -Follow fever curve -PER ID VANC DAY 3 AND ZOSYN DAY 2 Endo: h/o DM type II, hyperglycemia; OBESE -SSI -Avoid hypoglycemia -BG every 6H Heme: Leukocytosis -Trend CBC -ON ARIXTRA -Bilateral lower extremity Doppler ultrasound completed-> no DVT The high probability of a clinically significant, sudden or life threatening deterioration of the [multi] system(s) required my full and direct attention, intervention and personal management. The aggregate critical care time was [60] minutes. This time is in addition to time spent performing reported procedures but includes the following: [x] Data Review and interpretation [x] Patient assessment and monitoring of vital signs [x] Documentation [x] Medication orders and management History Interval history: This is a 39-year-old female with HTN, migraines, asthma, peripheral neuropathy, morbid obesity severe tracheal stenosis, idiopathic heredity angioedema and uticaria, alphagal syndrome s/p trach and multiple intubations who presented to emergency department on 11/29 for allergic reaction. Patient was intubated in the emergency department. Per family IV Benadryl, ketamine and Decadron work for spasms and stridor. Patient reportedly used EpiPen prior to arrival to emergency department. Patient is a being admitted to the hospital service with consult to [facility] for acute respiratory failure with hypoxemia secondary to hereditary angioedema and allergic reaction, hypertensive urgency. 11/30: Patient is on vent but awake and communicative. She is anxious. Patient does not know what triggered current recurrence of angioedema. FiO2 35%. Hemodynamically stable. Discussed with nursing staff and the patient, she communicates with writing. 12/01: Patient remains on vent and sedated. Current FiO2 30%. No acute events from overnight reported. Angioedema of face seems to improving. Hemodynamically stable. Pulmonary managing ventilator. Will be extubated when angioedema improved significantly. Discussed with the nursing staff. 12/02/20; Dr. Estrada recommended to initiate transfer to [facility] under the care of patient's ENT surgeon Dr. Carias I called [facility] transfer center at [phone] and requested a transfer, discussed in detail with the transfer center nurse Ms. River She she took all the patient's information and added the name of the patient to the list of waiting for ICU transfers and reported that there are no ICU beds available at this point. Would call back, and said she would request for a facesheet I informed the above information to applications analyst Dr. Estrada ,ICU charge nurse and the patient's nurse. Will follow up with the transfer process 12/03/2020; Ascencio PCR test is positive today reports patient has been Covid positive for the last 20 days without any symptoms Management per guidelines, ID consult 12/03/20 20:18: I called patient's spouse Mr. Manoj Sol at [phone] and discussed in detail patient's condition, treatment plan, tests and reports, efforts to transfer the patient to [facility], however could not be successfully till now due to unavailability of ICU beds at [facility] at this point, he wanted to know the plan of extubation here in the hospital, I encouraged him to call back tomorrow to discuss with pulmonary critical physician Dr. Estrada. I answered all his questions, he also reports that patient Ms. Ebenezer Lynn has been Covid positive for the last 20 days. I encouraged him to call back if she has any new concerns regarding the patient's condition no other treatment. He was appreciative of my call 12/04/2020; Persistent fevers, persistent positive COVID-19 ID consulted, awaiting transfer to [facility] Discussed extensively with patient's yesterday Patient is critically ill ,very poor prognosis 12/05: Patient's updated by [facility], awaiting transfer to [facility]. 12/06:CASSIUS overnight. This evening patient was agitated and bite down on OETT and became hypoxic. Eventually losing her pulse and received ACLS. Dr. Tavo Meeks attempted to update of events but no answer. See code sheet/note for details I updated pt mother over the phone as she questioned about "organ failure" and need for trach. She stated pt and her are against a trach. 12/07: CASSIUS overnight. updated on cardiac arrest yesterday. States that the patient and her would like to avoid a tracheostomy if possible however if emergent tracheostomy is needed then can be performed. Patient and are awaiting visit to [facility] for surgery for tracheal stenosis. Manoj Sol stated that mother in-law Nicole York may be contacted if Manoj is not able to be reached in case of emergency. Her number is [phone] 12/08: Patient with constant agitation and Precedex drip started. 12/09: Patient seems less agitated with addition of Precedex yesterday. Patient remains on ventilatory support and is awaiting transfer to [facility]. 12/10: CASSIUS overnight. neuro consult and LP per CCM, Manoj updated and FT visit with family. Manoj request for visitation for at least extubation. He states that his presence helps with calming the patient down. He also recommends the use of Precedex to aid extubation and states that has worked before. 12/11: Patient still having low-grade temps and will finish cefepime today. Started on Zosyn and pancultured. Plan is to CPAP tomorrow to extubate on Pr ecedex. states pts anxiety kicks in with 1-2 hours post extubation and patint will sate she wants to leave AMA. States she has threatened before. Manoj also stated that if unable to reach Manoj we can call [id number] and she will text him to call back. 12-12 CASSIUS OVERNIGHT; HAS BEEN AGITATED ON FENTANYL, VERSED AND DEX. LIZZETH ON .5 DEX Disposition Plan: icu Total Time Spent with Patient (Minutes): 60 History Interval history: NO ACUTE EVENTS OVERNIGHT ON CPAP THIS AM PLAN FOR 24 HOURS AND THEN EXTUBATE Hospitalist Physical - Constitutional Vitals: Temp Pulse Resp BP Pulse Ox 98.9 F 92 H 16 133/73 98 12/13/20 07:00 12/13/20 08:19 12/13/20 08:19 12/13/20 08:19 12/13/20 08:19 General appearance: Present: no acute distress, well-nourished, obese, other (Intubated on vent, sedated but follows commands) - EENT Eyes: Present: PERRL, EOM intact ENT: hearing intact, clear oral mucosa, dentition normal - Neck Neck: Present: supple - Respiratory Respiratory effort: normal - Cardiovascular Rhythm: regular Heart Sounds: Present: S1 & S2 - Extremities Extremity abnormal: edema Peripheral Pulses: within normal limits - Abdominal General gastrointestinal: soft - Integumentary Integumentary: Present: clear, warm, dry - Psychiatric Psychiatric: appropriate mood/affect - Neurologic Neurologic: CNII-XII intact - Allied Health Allied health notes reviewed: nursing, RT, social work, case management HEART Score - HEART Score Troponin: Troponin T < 0.010 ng/mL (0.00-0.029) 11/30/20 14:12 Results - Labs CBC & Chem 7: 12/13/20 04:52 12/13/20 04:52 Labs: Laboratory Last Values WBC 9.1 K/mm3 (4.5-11.0) 12/13/20 04:52 RBC 3.24 M/mm3 (3.65-5.03) L 12/13/20 04:52 Hgb 9.0 gm/dl (10.1-14.3) L 12/13/20 04:52 Hct 27.6 % (30.3-42.9) L 12/13/20 04:52 MCV 85 fl (79-97) 12/13/20 04:52 MCH 28 pg (28-32) 12/13/20 04:52 MCHC 33 % (30-34) 12/13/20 04:52 RDW 17.9 % (13.2-15.2) H 12/13/20 04:52 Plt Count 222 K/mm3 (140-440) 12/13/20 04:52 Lymph % (Auto) 13.1 % (13.4-35.0) L 12/05/20 11:04 [place] % (Auto) 6.7 % (0.0-7.3) 12/05/20 11:04 Eos % (Auto) 2.2 % (0.0-4.3) 12/05/20 11:04 Baso % (Auto) 0.4 % (0.0-1.8) 12/05/20 11:04 Lymph # (Auto) 1.7 K/mm3 (1.2-5.4) 12/05/20 11:04 [place] # (Auto) 0.9 K/mm3 (0.0-0.8) H 12/05/20 11:04 Eos # (Auto) 0.3 K/mm3 (0.0-0.4) 12/05/20 11:04 Baso # (Auto) 0.1 K/mm3 (0.0-0.1) 12/05/20 11:04 Add Manual Diff Complete 12/04/20 05:40 Total Counted 100 12/04/20 05:40 Seg Neutrophils % 77.6 % (40.0-70.0) H 12/05/20 11:04 Seg Neuts % (Manual) 74.0 % (40.0-70.0) H 12/04/20 05:40 Band Neutrophils % 16.0 % 12/04/20 05:40 Lymphocytes % (Manual) 2.0 % (13.4-35.0) L 12/04/20 05:40 Monocytes % (Manual) 5.0 % (0.0-7.3) 12/04/20 05:40 Eosinophils % (Manual) 2.0 % (0.0-4.3) 12/04/20 05:40 Basophils % (Manual) 1.0 % (0.0-1.8) 12/04/20 05:40 Nucleated RBC % Not Reportable 12/04/20 05:40 Seg Neutrophils # 10.0 K/mm3 (1.8-7.7) H 12/05/20 11:04 Seg Neutrophils # Man 16.1 K/mm3 (1.8-7.7) H 12/04/20 05:40 Band Neutrophils # 3.5 K/mm3 12/04/20 05:40 Lymphocytes # (Manual) 0.4 K/mm3 (1.2-5.4) L 12/04/20 05:40 Abs React Lymphs (Man) 0.0 K/mm3 12/04/20 05:40 Monocytes # (Manual) 1.1 K/mm3 (0.0-0.8) H 12/04/20 05:40 Eosinophils # (Manual) 0.4 K/mm3 (0.0-0.4) 12/04/20 05:40 Basophils # (Manual) 0.2 K/mm3 (0.0-0.1) H 12/04/20 05:40 Metamyelocytes # 0.0 K/mm3 12/04/20 05:40 Myelocytes # 0.0 K/mm3 12/04/20 05:40 Promyelocytes # 0.0 K/mm3 12/04/20 05:40 Blast Cells # 0.0 K/mm3 12/04/20 05:40 WBC Morphology Not Reportable 12/04/20 05:40 Hypersegmented Neuts Not Reportable 12/04/20 05:40 Hyposegmented Neuts Not Reportable 12/04/20 05:40 Hypogranular Neuts Not Reportable 12/04/20 05:40 Smudge Cells Not Reportable 12/04/20 05:40 Toxic Granulation Not Reportable 12/04/20 05:40 Toxic Vacuolation Not Reportable 12/04/20 05:40 Dohle Bodies Not Reportable 12/04/20 05:40 Pelger-Huet Anomaly Not Reportable 12/04/20 05:40 Solomon Rods Not Reportable 12/04/20 05:40 Platelet Estimate Not Reportable 12/04/20 05:40 Clumped Platelets 1+ 12/04/20 05:40 Plt Clumps, EDTA Not Reportable 12/04/20 05:40 Large Platelets Not Reportable 12/04/20 05:40 Giant Platelets Not Reportable 12/04/20 05:40 Platelet Satelliting Not Reportable 12/04/20 05:40 Plt Morphology Comment Not Reportable 12/04/20 05:40 RBC Morphology Normal 12/04/20 05:40 Dimorphic RBCs Not Reportable 12/04/20 05:40 Polychromasia Not Reportable 12/04/20 05:40 Hypochromasia Not Reportable 12/04/20 05:40 Poikilocytosis Not Reportable 12/04/20 05:40 Anisocytosis Not Reportable 12/04/20 05:40 Microcytosis Not Reportable 12/04/20 05:40 Macrocytosis Not Reportable 12/04/20 05:40 Spherocytes Not Reportable 12/04/20 05:40 Pappenheimer Bodies Not Reportable 12/04/20 05:40 Sickle Cells Not Reportable 12/04/20 05:40 Target Cells Not Reportable 12/04/20 05:40 Tear Drop Cells Not Reportable 12/04/20 05:40 Ovalocytes Not Reportable 12/04/20 05:40 Helmet Cells Not Reportable 12/04/20 05:40 [place] Bodies Not Reportable 12/04/20 05:40 [place] Rings Not Reportable 12/04/20 05:40 Paulo Cells Not Reportable 12/04/20 05:40 Bite Cells Not Reportable 12/04/20 05:40 Crenated Cell Not Reportable 12/04/20 05:40 Elliptocytes Not Reportable 12/04/20 05:40 Acanthocytes (Spur) Not Reportable 12/04/20 05:40 Rouleaux Not Reportable 12/04/20 05:40 Hemoglobin C Crystals Not Reportable 12/04/20 05:40 Schistocytes Not Reportable 12/04/20 05:40 Malaria parasites Not Reportable 12/04/20 05:40 Charanjit Bodies Not Reportable 12/04/20 05:40 Hem Pathologist Commnt No 12/04/20 05:40 PT 13.9 Sec. (12.2-14.9) 12/07/20 04:00 INR 1.02 (0.87-1.13) 12/07/20 04:00 D-Dimer 1838.21 ng/mlDDU (0-234) H 12/04/20 10:41 ABG pH 7.453 (7.320-7.450) H 12/12/20 04:00 POC ABG pCO2 41.4 mmHg (32.0-48.0) 12/12/20 04:00 POC ABG pO2 79.3 mmHg (83-108) L 12/12/20 04:00 POC ABG HCO3 28.3 12/12/20 04:00 ABG O2 Saturation 95.5 (0-100) 12/12/20 04:00 POC ABG Base Excess 4.0 12/12/20 04:00 ABG Hemoglobin 9.3 (12.0-17.5) L 12/12/20 04:00 ABG Oxyhemoglobin 94.7 (94-98) 12/12/20 04:00 ABG Methemoglobin 0.3 (0.0-1.5) 12/12/20 04:00 ABG Sodium 139.0 mmol/L (136.0-145.0) 12/12/20 04:00 ABG Potassium 4.1 mmol/L (3.40-4.50) 12/12/20 04:00 ABG Chloride 102.0 mmol/L (98-107) 12/12/20 04:00 ABG Glucose 159 mg/dL (65-95) H 12/12/20 04:00 Carboxyhemoglobin 0.5 (0.5-1.5) 12/12/20 04:00 FiO2 % 40.0 12/12/20 04:00 Sodium 138 mmol/L (137-145) 12/13/20 04:52 Potassium 4.4 mmol/L (3.6-5.0) 12/13/20 04:52 Chloride 102.2 mmol/L (98-107) 12/13/20 04:52 Carbon Dioxide 30 mmol/L (22-30) 12/13/20 04:52 Anion Gap 10 mmol/L 12/13/20 04:52 BUN 27 mg/dL (7-17) H 12/13/20 04:52 Creatinine 0.6 mg/dL (0.6-1.2) 12/13/20 04:52 Estimated GFR > 60 ml/min 12/13/20 04:52 BUN/Creatinine Ratio 45 % 12/13/20 04:52 Glucose 157 mg/dL (65-100) H 12/13/20 04:52 POC Glucose 176 mg/dL (70-105) H 12/13/20 05:22 Calcium 9.0 mg/dL (8.4-10.2) 12/13/20 04:52 Phosphorus TNR 12/12/20 14:33 Magnesium 2.10 mg/dL (1.7-2.3) 12/11/20 06:05 Ferritin 399.0 ng/mL (10.0-200.0) H 12/04/20 10:41 Total Bilirubin 0.30 mg/dL (0.1-1.2) 12/13/20 04:52 Direct Bilirubin < 0.2 mg/dL (0-0.2) 11/29/20 07:48 Indirect Bilirubin 0.0 mg/dL 11/29/20 07:48 AST 16 units/L (5-40) 12/13/20 04:52 ALT 28 units/L (7-56) 12/13/20 04:52 Alkaline Phosphatase 59 units/L (35-129) 12/13/20 04:52 Lactate Dehydrogenase 386 units/L (91-180) H 12/04/20 10:41 Total Creatine Kinase 1132 units/L (30-135) H 11/30/20 14:12 CK-MB (CK-2) 14.6 ng/mL (0.0-4.0) H 11/30/20 14:12 CK-MB (CK-2) Rel Index 1.2 (0-4) 11/30/20 14:12 Troponin T < 0.010 ng/mL (0.00-0.029) 11/30/20 14:12 C-Reactive Protein 34.30 mg/dL (0.00-1.30) H 12/04/20 10:41 Total Protein 6.5 g/dL (6.3-8.2) 12/13/20 04:52 Albumin 2.9 g/dL (3.9-5) L 12/13/20 04:52 Albumin/Globulin Ratio 0.8 % 12/13/20 04:52 HCG, Qual Negative (Negative) 11/29/20 07:48 Arterial Blood Glucose 159 mg/dL (65-95) H 12/12/20 04:00 Arterial Blood Ionized Calcium 4.8 mg/dL (4.6-5.3) 12/12/20 04:00 Urine Color Colorless (Yellow) 12/11/20 12:22 Urine Turbidity Clear (Clear) 12/11/20 12:22 Urine pH 5.0 (5.0-7.0) 12/11/20 12:22 Ur Specific [place] 1.005 (1.003-1.030) 12/11/20 12:22 Urine Protein <15 mg/dl mg/dL (Negative) 12/11/20 12:22 Urine Glucose (UA) Neg mg/dL (Negative) 12/11/20 12:22 Urine Ketones Neg mg/dL (Negative) 12/11/20 12:22 Urine Blood Sm (Negative) 12/11/20 12:22 Urine Nitrite Neg (Negative) 12/11/20 12:22 Urine Bilirubin Neg (Negative) 12/11/20 12:22 Urine Urobilinogen < 2.0 mg/dL (<2.0) 12/11/20 12:22 Ur Leukocyte Esterase Neg (Negative) 12/11/20 12:22 Urine WBC (Auto) < 1.0 /HPF (0.0-6.0) 12/11/20 12:22 Urine RBC (Auto) 11.0 /HPF (0.0-6.0) 12/11/20 12:22 U Epithel Cells (Auto) 1.0 /HPF (0-13.0) 12/11/20 12:22 Urine Bacteria (Auto) 1+ /HPF (Negative) 12/11/20 12:22 Urine WBC Clumps 3+ /HPF 12/04/20 07:30 RBC Casts 1 /LPF 12/11/20 12:22 WBC Casts 17 /LPF 12/04/20 07:30 Urine Mucus Few /HPF 12/11/20 12:22 Vancomycin Trough 30.6 ug/mL (5.0-20.0) H 12/12/20 18:47 Coronavirus (PCR) Positive (Negative) A 12/03/20 08:00 Microbiology: Microbiology 12/11/20 12:54 Peripheral/Venous Blood Culture - Preliminary NO GROWTH AFTER 24 HOURS 12/11/20 12:54 Peripheral/Venous Blood Culture - Preliminary NO GROWTH AFTER 24 HOURS 12/11/20 09:56 Urine,Dash Port Urine Culture - Preliminary NO GROWTH AFTER 24 HOURS Dash/IV: Voiding Method Indwelling Catheter Active Medications - Current Medications Current Medications: Generic Name Dose Route Start Last Admin Trade Name Freq PRN Reason Stop Dose Admin Acetaminophen 650 mg 12/04/20 00:39 12/10/20 05:24 Acetaminophen 325 Mg Tab PO 650 mg Q6H PRN Administration Fever >101 Albuterol 2.5 mg 11/29/20 15:22 Albuterol 2.5 Mg/3 Ml Nebu IH Q4HRT PRN Shortness Of Breath Albuterol/Ipratropium 1 ampul 12/07/20 20:00 12/13/20 08:24 Ipratropium/Albuterol Sulfate 3 Ml Ampul.Neb IH 1 ampul Q12HRT KRYSTAL Administration Lipase/Protease/Amylase 1 each 11/29/20 15:23 Lipase 10,500/Protease 25,000/Amylase 43,750 (Units) Dr Ariza FEEDTUBE PRN PRN For Clogged Feeding Tube Ascorbic Acid 500 mg 12/04/20 22:00 12/12/20 22:01 Ascorbic Acid 500 Mg Tab PO 500 mg BID KRYSTAL Administration Dextrose 50 ml 12/05/20 10:34 Dextrose 50% In Water (25gm) 50 Ml Syringe IV Q30MIN PRN Hypoglycemia Protocol Famotidine 20 mg 11/30/20 15:00 12/12/20 23:45 Famotidine 20 Mg/2 Ml Inj IV 20 mg BID KRYSTAL Administration Fentanyl 50 mcg 11/29/20 10:22 Fentanyl 100 Mcg/2 Ml Inj IV Q10MIN PRN ANALGESIA Fondaparinux 2.5 mg 11/29/20 22:00 12/12/20 22:01 Fondaparinux 2.5 Mg/0.5 Ml Inj SUB-Q 2.5 mg Q24H KRYSTAL Administration Gabapentin 600 mg 11/30/20 17:00 12/12/20 23:45 Gabapentin 500 Mg/10 Ml Oral Liqd PO 600 mg BID KRYSTAL Administration Hydrochlorothiazide 12.5 mg 12/10/20 10:00 12/12/20 09:38 Hydrochlorothiazide 12.5 Mg Cap PO 12.5 mg QDAY KRYSTAL Administration Hydrophilic Ointment 1 applic 12/01/20 08:54 Lip Therapy Vaseline TP Q2HR PRN Dry Lips Midazolam HCl 100 mg/ Sodium 100 mls @ 2 mls/hr 11/29/20 12:00 12/13/20 04:06 Chloride IV 4 mg/hr TITR KRYSTAL 4 mls/hr Titration Protocol 2 MG/HR Fentanyl Citrate 2,000 mcg in 100 mls @ 6.45 mls/hr 11/29/20 12:30 12/13/20 05:30 Fentanyl Drip Premix IV 3 mcg/kg/hr TITR KRYSTAL 19.35 mls/hr Administration Protocol 1 MCG/KG/HR Dexmedetomidine HCl 400 mcg/ 104 mls @ 6.885 mls/hr 12/08/20 16:00 12/13/20 04:09 Sodium Chloride IV 0.5 mcg/kg/hr TITRATE KRYSTAL 17.212 mls/hr Administration Protocol 0.2 MCG/KG/HR Propofol 1,000 mg in 100 mls @ 3.972 mls/hr 12/08/20 19:00 Diprivan 10 Mg/Ml IV TITR KRYSTAL Protocol 5 MCG/KG/MIN Piperacillin Sod/Tazobactam Sod 3.375 gm in 50 mls @ 100 mls/hr 12/12/20 18:00 12/13/20 04:09 Zosyn/Ns 3.375gm/50ml IV 100 mls/hr Q8H KRYSTAL Administration Insulin Human Regular 0 units 12/05/20 12:00 12/13/20 06:14 Insulin Regular, Human 100 Units/1 Ml SUB-Q Not Given Q6HR KRYSTAL Protocol Midazolam HCl 2 mg 11/29/20 10:22 12/08/20 18:35 Midazolam 2 Mg/2 Ml Inj IV 2 mg Q10MIN PRN Administration Sedation Montelukast Sodium 10 mg 11/29/20 22:00 12/12/20 22:01 Montelukast 10 Mg Tab PO 10 mg HS KRYSTAL Administration Multi-Ingred Cream/Lotion/Oil/Oint 1 applic 12/01/20 08:54 Mineral Oil/Petrolatum, White Ophth Oint 3.5 Gm OU Q4HR PRN Dry Eye(s) Quetiapine Fumarate 150 mg 12/12/20 14:00 12/13/20 06:17 Quetiapine 100 Mg Tab PO 150 mg Q8H KRYSTAL Administration Senna/Docusate Sodium 1 tab 11/29/20 10:00 12/12/20 22:01 Sennosides/Docusate Sodium 8.6/50 Mg Tab FEEDTUBE 1 tab BID KRYSTAL Administration Simple Syrup 15 ml 11/29/20 15:23 Simple Syrup 15 Ml FEEDTUBE PRN PRN Hypoglycemia Simple Syrup 30 ml 11/29/20 15:23 Simple Syrup 15 Ml FEEDTUBE PRN PRN Hypoglycemia Sodium Bicarbonate 325 mg 11/29/20 15:23 Sodium Bicarbonate 325 Mg Tab FEEDTUBE PRN PRN For Clogged Feeding Tube Zinc Sulfate 220 mg 12/05/20 10:00 12/12/20 09:38 Zinc Sulfate 220 Mg Cap PO 220 mg QDAY KRYSTAL Administration Nutrition/Malnutrition Assess - Dietary Evaluation Nutrition/Malnutrition Findings: Nutrition Notes Start: 11/30/20 09:03 Freq: Status: Active Protocol: Document 12/07/20 10:14 (Rec: 12/07/20 10:17 [id number]) Nutrition Notes Initial or Follow up Reassessment Current Diagnosis Respiratory Failure Other Pertinent Diagnosis allergic reaction, alpha gal, hx HTN Current Diet Vital HP at 65 ml/hr Labs/Tests BUN 29 BG 148 Pertinent Medications Reviewed Height 5 ft 6 in Weight 132.4 kg [place] Body Weight (kg) 59.09 BMI 47.1 Weight Status Morbidly Obese Subjective/Other Information Pt suffered code blue yesterday. RN reports TF at goal and pt tolerating. Percent of energy/protein needs met: 84%/91% Burn Absent Trauma Absent Difficulty In Swallowing Current % PO Negligible Minimum of two criteria No Fluid Accumulation Mild (non-severe) #1 Nutrition Diagnosis Inadequate oral intake Diagnosis Progress(for reassessment Continues documentation) Is patient on ventilator? Yes Is Patient Ambulatory and/or Out of Bed No REE-([place] [facility]-confined to bed) 2421.060 Kcal/Kg value to use for calculation 14 Approximate Energy Requirements Using 1854 kcal/Kg Calculation Used for Recommendations Kcal/kg Additional Notes Protein needs: 2.5 g/kg IBW , 148 g Fluid needs: 1ml/kcal Nutrition Intervention Change Diet Order: continue Nutrition Support: Vital High Protein at 65 ml/hr flush 45 ml q4h Kcal 1,560 Protein (gm) 135 Fluid (mL) 1,304 Goal #1 Meet at least 75% of protein and kcal needs via TF Anticipated Discharge Needs: Unable to determine at this time Follow-Up By: 12/13/20 Additional Comments F/u: TF tolerance - Attestation Statement I have reviewed and agreed w/ Malnutrition eval & tx plan: Yes
--- NOTE | 2020-12-13 10:24 | Progress Note ---
Assessment and Plan Cultures: Today 11/29/2020 usual respiratory malik Blood culture 12/04/2020 no growth Urine culture 12/04/2020 E. coli Blood culture 12/11/2020 no growth today Urine culture 12/11/2020 no growth Sputum culture 12/11/2020 pending A/P: 40-year-old female past medical history of severe allergic reactions, morbid obesity, hypertension admitted with COVID-19 and respiratory failure #Sepsis: Remains with low-grade fever. Likely due to COVID/UTI #Critical COVID-19: has been positive for >3 weeks. No therapy indicated at this time. #Bilateral pneumonia: Possible secondary infection, recent development with new leukocytosis and fevers. #Acute sepsis: Present leukocytosis and fevers. Possibly secondary to pneumonia. #Acute hypoxic respiratory failure: On the vent #Severe allergic history Recs: -F/u respiratory culture, MRSA PCR -Continue vancomycin IV for now D3 -Continue zosyn D2 -Completed Cefepime for 7 days -Monitor renal function Guarded prognosis Jody Larios MD [facility] ([facility]) Office [phone] Subjective Date of service: 12/13/20 Principal diagnosis: Acute Hypoxemic Respiratory Failure; Angioedema;Obesity; leukocytosis Interval history: Remains critically ill, intubated FiO2 40%, PEEP of 6, no pressors. Isolated 100 fever. Objective - Exam Narrative Exam: Physical exam deferred to minimize COVID-19 transmission during pandemic. - Constitutional Vitals: Vital Signs Temp Pulse Resp BP Pulse Ox 98.9 F 95 H 16 133/73 98 12/13/20 07:00 12/13/20 10:04 12/13/20 10:04 12/13/20 08:19 12/13/20 08:19 Temperature -Last 24 Hours Temperature 98.9 F Temperature 100 F Temperature 99.1 F Temperature 99.6 F Temperature 99.6 F Temperature 98.6 F - Labs CBC & Chem 7: 12/13/20 04:52 12/13/20 04:52 Labs: Abnormal lab results 12/12/20 12/12/20 12/12/20 Range/Units 11:29 17:31 18:47 RBC 3.38 L (3.65-5.03) M/mm3 Hgb 9.3 L (10.1-14.3) gm/dl Hct 29.3 L (30.3-42.9) % RDW 18.8 H (13.2-15.2) % BUN (7-17) mg/dL Glucose (65-100) mg/dL POC Glucose 135 H 145 H (70-105) mg/dL Albumin (3.9-5) g/dL Vancomycin Trough (5.0-20.0) ug/mL 12/12/20 12/12/20 12/13/20 Range/Units 18:47 23:38 04:52 RBC 3.24 L (3.65-5.03) M/mm3 Hgb 9.0 L (10.1-14.3) gm/dl Hct 27.6 L (30.3-42.9) % RDW 17.9 H (13.2-15.2) % BUN (7-17) mg/dL Glucose (65-100) mg/dL POC Glucose 123 H (70-105) mg/dL Albumin (3.9-5) g/dL Vancomycin Trough 30.6 H (5.0-20.0) ug/mL 12/13/20 12/13/20 Range/Units 04:52 05:22 RBC (3.65-5.03) M/mm3 Hgb (10.1-14.3) gm/dl Hct (30.3-42.9) % RDW (13.2-15.2) % BUN 27 H (7-17) mg/dL Glucose 157 H (65-100) mg/dL POC Glucose 176 H (70-105) mg/dL Albumin 2.9 L (3.9-5) g/dL Vancomycin Trough (5.0-20.0) ug/mL
[2020-12-13] MEDS: GABAPENTIN 500 MG/10 ML ORAL LIQD PO SCH (10:37)
[2020-12-13] MEDS: hydroCHLOROthiazide 12.5 MG CAP PO SCH (10:39)
[2020-12-13] MEDS: FAMOTIDINE 20 MG/2 ML INJ IV SCH ×2 (10:39→21:04)
[2020-12-13] MEDS: SENNOSIDES/DOCUSATE SODIUM 8.6/50 MG TAB FEEDTUBE SCH ×2 (10:40→21:03)
[2020-12-13] MEDS: ZINC SULFATE 220 MG CAP PO SCH (10:41)
[2020-12-13] MEDS: ASCORBIC ACID 500 MG TAB PO SCH ×2 (10:41→21:21)
--- NOTE | 2020-12-13 11:12 | Progress Note ---
Assessment and Plan Acute hypoxemic respiratory failure Angioedema Morbid obesity Mild leukocytosis Hypertension. 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 and my explaining that we do not have ENT here - continue to wean supplemental oxygen for target O2 sat's > 92% acutely - continue care as below otherwise; - VAP bundle addressed - continue lung protective strategies - continue bronchodilators with pulmonary hygiene per RT - wean per pulmonary driven protocols otherwise - continue accuchecks with glycemic control per SSI (While critically ill target blood glucose of 140-180 mg/dL; avoid hypoglycemia) - sedation prn for target RASS -1 to -2 - avoid nephrotoxins, renally dose all medications - continue to avoid benzodiazepine's, reduce the possibility of delirium - AB's per ID rec's - prn analgesia per CPOT score - Maintenance of sleep-wake cycle, avoid delirium - continue enteral nutritional support at goal rate as tolerated - G.I. & VTE prophylaxis - PT/OT/ROM exercises - continue mobility protocols for pressure ulcer prophylaxis - Monitor hemodynamics closely - continue other care per attending / other consultants - discharge planning ongoing concurrently COVID SPECIFIC INTERVENTIONS - Continue contact and airborne isolation - Remdesivir as per ID/Pulmonary developed protocols (not indicated re: duration of illness) - continue systemic steroids for severe COVID-19 infection empirically (no steroids re: COVID recovery status and h/o allergy to Solumedrol) - follow repeat COVID tests results - zinc and vitamin C supplementation - Monitor inflammatory markers per facility protocol - ferritin, Ddimer, CRP - therapeutic anticoagulation per system Protocol based on d-dimer and clinical considerations (VTE prophylaxis) .... Re-evaluate in am & prn CONDITION: CRITICAL PROGNOSIS: GUARDED CODE STATUS: FULL CODE The high probability of a clinically significant, sudden or life-threatening deterioration of the [respiratory, cardiovascular & immunologic] system(s) r equired my full and direct attention, intervention and personal management. The aggregate critical care time was [36] minutes without overlap. Time includes spent on; [x] Data Review and interpretation [x] Patient assessment and monitoring of vital signs [x] Documentation [x] Medication orders and management Subjective Date of service: 12/13/20 Principal diagnosis: Acute Hypoxemic Respiratory Failure; Angioedema;Obesity; leukocytosis Interval history: Patient is seen today for: Acute hypoxemic respiratory failure; Angioedema; Morbid obesity; leukocytosis; HTN; H/O alpha-gal syndrome Seen and examined at bedside; 24hour events reviewed; nursing and respiratory care staff consulted; no adverse overnight events reported to me; resting in bed ; remains on MVS; agitated but re-directible; on Precedex; secretions copious; denies N/V/F/C Objective Vital Signs - 12hr 12/12/20 12/12/20 12/12/20 23:15 23:30 23:46 Temperature Pulse Rate 112 H 114 H 113 H Pulse Rate [ Anterior Bilateral Throughout] Respiratory 19 18 17 Rate Respiratory Rate [Anterior Bilateral Throughout] Blood Pressure 129/76 119/62 140/60 O2 Sat by Pulse 100 100 100 Oximetry 12/12/20 12/13/20 12/13/20 23:47 00:00 00:15 Temperature 99.1 F Pulse Rate 101 H 100 H Pulse Rate [ Anterior Bilateral Throughout] Respiratory 16 15 Rate Respiratory Rate [Anterior Bilateral Throughout] Blood Pressure 128/75 137/74 O2 Sat by Pulse 100 100 Oximetry 12/13/20 12/13/20 12/13/20 00:30 00:45 01:00 Temperature Pulse Rate 99 H 125 H 104 H Pulse Rate [ Anterior Bilateral Throughout] Respiratory 16 17 16 Rate Respiratory Rate [Anterior Bilateral Throughout] Blood Pressure 136/72 152/69 152/69 O2 Sat by Pulse 100 100 100 Oximetry 12/13/20 12/13/20 12/13/20 01:15 01:30 01:40 Temperature Pulse Rate 106 H 99 H Pulse Rate [ Anterior Bilateral Throughout] Respiratory 18 15 Rate Respiratory Rate [Anterior Bilateral Throughout] Blood Pressure 129/73 125/72 O2 Sat by Pulse 100 100 97 Oximetry 12/13/20 12/13/20 12/13/20 01:45 02:00 02:15 Temperature Pulse Rate 95 H 94 H 94 H Pulse Rate [ Anterior Bilateral Throughout] Respiratory 16 18 17 Rate Respiratory Rate [Anterior Bilateral Throughout] Blood Pressure 110/59 117/57 111/60 O2 Sat by Pulse 100 96 96 Oximetry 12/13/20 12/13/20 12/13/20 02:30 02:45 03:00 Temperature Pulse Rate 97 H 89 83 Pulse Rate [ Anterior Bilateral Throughout] Respiratory 15 15 15 Rate Respiratory Rate [Anterior Bilateral Throughout] Blood Pressure 128/66 109/52 102/51 O2 Sat by Pulse 98 95 96 Oximetry 12/13/20 12/13/20 12/13/20 03:15 03:22 03:30 Temperature 100 F H Pulse Rate 84 82 Pulse Rate [ Anterior Bilateral Throughout] Respiratory 15 14 Rate Respiratory Rate [Anterior Bilateral Throughout] Blood Pressure 110/51 105/53 O2 Sat by Pulse 96 96 Oximetry 12/13/20 12/13/20 12/13/20 03:45 04:00 04:15 Temperature Pulse Rate 71 62 63 Pulse Rate [ Anterior Bilateral Throughout] Respiratory 16 13 18 Rate Respiratory Rate [Anterior Bilateral Throughout] Blood Pressure 91/44 88/44 95/48 O2 Sat by Pulse 97 97 97 Oximetry 12/13/20 12/13/20 12/13/20 04:30 04:45 05:00 Temperature Pulse Rate 59 L 65 108 H Pulse Rate [ Anterior Bilateral Throughout] Respiratory 15 15 22 Rate Respiratory Rate [Anterior Bilateral Throughout] Blood Pressure 87/44 100/49 100/49 O2 Sat by Pulse 98 97 99 Oximetry 12/13/20 12/13/20 12/13/20 05:13 05:15 05:30 Temperature Pulse Rate 104 H 103 H 101 H Pulse Rate [ Anterior Bilateral Throughout] Respiratory 21 17 Rate Respiratory Rate [Anterior Bilateral Throughout] Blood Pressure 129/54 120/58 131/73 O2 Sat by Pulse 97 99 97 Oximetry 12/13/20 12/13/20 12/13/20 05:45 06:00 06:15 Temperature Pulse Rate 88 90 84 Pulse Rate [ Anterior Bilateral Throughout] Respiratory 16 17 16 Rate Respiratory Rate [Anterior Bilateral Throughout] Blood Pressure 128/60 119/55 117/55 O2 Sat by Pulse 97 97 99 Oximetry 12/13/20 12/13/20 12/13/20 06:30 06:45 07:00 Temperature 98.9 F Pulse Rate 82 89 94 H Pulse Rate [ Anterior Bilateral Throughout] Respiratory 16 17 19 Rate Respiratory Rate [Anterior Bilateral Throughout] Blood Pressure 117/55 101/62 101/62 O2 Sat by Pulse 98 98 99 Oximetry 12/13/20 12/13/20 12/13/20 07:15 07:30 07:45 Temperature Pulse Rate 92 H 89 100 H Pulse Rate [ Anterior Bilateral Throughout] Respiratory 20 15 15 Rate Respiratory Rate [Anterior Bilateral Throughout] Blood Pressure 128/63 132/70 141/82 O2 Sat by Pulse 98 98 98 Oximetry 12/13/20 12/13/20 12/13/20 08:00 08:15 08:19 Temperature Pulse Rate 98 H 93 H 92 H Pulse Rate [ Anterior Bilateral Throughout] Respiratory 18 16 16 Rate Respiratory Rate [Anterior Bilateral Throughout] Blood Pressure 147/84 133/73 133/73 O2 Sat by Pulse 97 99 98 Oximetry 12/13/20 10:04 Temperature Pulse Rate Pulse Rate [ 95 H Anterior Bilateral Throughout] Respiratory Rate Respiratory 16 Rate [Anterior Bilateral Throughout] Blood Pressure O2 Sat by Pulse Oximetry Constitutional: appears uncomfortable, other (kianna g obese female without increased respiratory effort at rest on MVS) Eyes: non-icteric ENT: oropharynx moist, other (ETT 23 cm JOSELYN) Neck: supple, no lymphadenopathy, no JVD, other (large circumference; + healed trach scar) Effort: mildly labored Ascultation: Bilateral: diminished breath sounds, rhonchi Percussion: Bilateral: not dull Cardiovascular: regular rate and rhythm Gastrointestinal: normoactive bowel sounds, soft, non-tender, non-distended Integumentary: normal Extremities: no cyanosis, no edema, pink and warm, pulses normal Neurologic: non-focal exam, pupils equal and round, CN II-XII normal, motor strength normal and Psychiatric: other (sedated) CBC and BMP: 12/13/20 04:52 12/13/20 04:52 ABG, PT/INR, D-dimer: ABG ABG pH 7.453 (7.320-7.450) H 12/12/20 04:00 POC ABG pCO2 41.4 mmHg (32.0-48.0) 12/12/20 04:00 POC ABG pO2 79.3 mmHg (83-108) L 12/12/20 04:00 POC ABG HCO3 28.3 12/12/20 04:00 ABG O2 Saturation 95.5 (0-100) 12/12/20 04:00 PT/INR, D-dimer PT 13.9 Sec. (12.2-14.9) 12/07/20 04:00 INR 1.02 (0.87-1.13) 12/07/20 04:00 D-Dimer 1838.21 ng/mlDDU (0-234) H 12/04/20 10:41 Abnormal lab findings: Abnormal Labs 11/29/20 11/29/20 11/29/20 07:48 07:48 07:48 WBC 11.3 H RBC Hgb Hct RDW 18.0 H Lymph % (Auto) Tucker # (Auto) Seg Neutrophils % Seg Neuts % (Manual) Lymphocytes % (Manual) Seg Neutrophils # 7.9 H Seg Neutrophils # Man Lymphocytes # (Manual) Monocytes # (Manual) Basophils # (Manual) D-Dimer ABG pH POC ABG pCO2 POC ABG pO2 ABG Hemoglobin ABG Oxyhemoglobin ABG Sodium ABG Potassium ABG Chloride ABG Glucose Carboxyhemoglobin Sodium 135 L Chloride Carbon Dioxide BUN Creatinine Glucose 204 H POC Glucose Calcium Ferritin Lactate Dehydrogenase Total Creatine Kinase CK-MB (CK-2) C-Reactive Protein Total Protein Albumin 3.7 L Arterial Blood Glucose Urine WBC (Auto) Vancomycin Trough Coronavirus (PCR) 11/29/20 11/30/20 11/30/20 11:37 04:27 11:22 WBC RBC Hgb Hct RDW Lymph % (Auto) Tucker # (Auto) Seg Neutrophils % Seg Neuts % (Manual) Lymphocytes % (Manual) Seg Neutrophils # Seg Neutrophils # Man Lymphocytes # (Manual) Monocytes # (Manual) Basophils # (Manual) D-Dimer ABG pH 7.318 L POC ABG pCO2 POC ABG pO2 76.1 L 196.4 H ABG Hemoglobin 11.96 L ABG Oxyhemoglobin 92.4 L 98.5 H ABG Sodium 133.7 L ABG Potassium 5.0 H ABG Chloride ABG Glucose 171 H Carboxyhemoglobin 2.5 H Sodium Chloride Carbon Dioxide BUN Creatinine Glucose POC Glucose 157 H Calcium Ferritin Lactate Dehydrogenase Total Creatine Kinase CK-MB (CK-2) C-Reactive Protein Total Protein Albumin Arterial Blood Glucose 171 H Urine WBC (Auto) Vancomycin Trough Coronavirus (PCR) 11/30/20 11/30/20 11/30/20 14:12 17:19 23:42 WBC RBC Hgb Hct RDW Lymph % (Auto) Tucker # (Auto) Seg Neutrophils % Seg Neuts % (Manual) Lymphocytes % (Manual) Seg Neutrophils # Seg Neutrophils # Man Lymphocytes # (Manual) Monocytes # (Manual) Basophils # (Manual) D-Dimer ABG pH POC ABG pCO2 POC ABG pO2 ABG Hemoglobin ABG Oxyhemoglobin ABG Sodium ABG Potassium ABG Chloride ABG Glucose Carboxyhemoglobin Sodium Chloride Carbon Dioxide BUN Creatinine Glucose POC Glucose 135 H 121 H Calcium Ferritin Lactate Dehydrogenase Total Creatine Kinase 1132 H CK-MB (CK-2) 14.6 H C-Reactive Protein Total Protein Albumin Arterial Blood Glucose Urine WBC (Auto) Vancomycin Trough Coronavirus (PCR) 12/01/20 12/01/20 12/01/20 03:30 04:21 06:16 WBC RBC Hgb Hct RDW Lymph % (Auto) Tucker # (Auto) Seg Neutrophils % Seg Neuts % (Manual) Lymphocytes % (Manual) Seg Neutrophils # Seg Neutrophils # Man Lymphocytes # (Manual) Monocytes # (Manual) Basophils # (Manual) D-Dimer ABG pH POC ABG pCO2 POC ABG pO2 37.6 L 76.2 L ABG Hemoglobin 10.4 L 10.8 L ABG Oxyhemoglobin 76.4 L 93.7 L ABG Sodium 112.8 L 110.9 L ABG Potassium ABG Chloride ABG Glucose 103 H 107 H Carboxyhemoglobin Sodium Chloride Carbon Dioxide BUN Creatinine Glucose POC Glucose 129 H Calcium Ferritin Lactate Dehydrogenase Total Creatine Kinase CK-MB (CK-2) C-Reactive Protein Total Protein Albumin Arterial Blood Glucose 103 H 107 H Urine WBC (Auto) Vancomycin Trough Coronavirus (PCR) 12/02/20 12/02/20 12/02/20 04:00 12:02 17:10 WBC RBC Hgb Hct RDW Lymph % (Auto) Tucker # (Auto) Seg Neutrophils % Seg Neuts % (Manual) Lymphocytes % (Manual) Seg Neutrophils # Seg Neutrophils # Man Lymphocytes # (Manual) Monocytes # (Manual) Basophils # (Manual) D-Dimer ABG pH 7.306 L POC ABG pCO2 58.0 H POC ABG pO2 58.5 L ABG Hemoglobin 11.4 L ABG Oxyhemoglobin 86.9 L ABG Sodium 124.7 L ABG Potassium ABG Chloride ABG Glucose 118 H Carboxyhemoglobin Sodium Chloride Carbon Dioxide BUN Creatinine Glucose POC Glucose 143 H 134 H Calcium Ferritin Lactate Dehydrogenase Total Creatine Kinase CK-MB (CK-2) C-Reactive Protein Total Protein Albumin Arterial Blood Glucose 118 H Urine WBC (Auto) Vancomycin Trough Coronavirus (PCR) 12/03/20 12/03/20 12/04/20 05:10 08:00 03:32 WBC RBC Hgb Hct RDW Lymph % (Auto) Tucker # (Auto) Seg Neutrophils % Seg Neuts % (Manual) Lymphocytes % (Manual) Seg Neutrophils # Seg Neutrophils # Man Lymphocytes # (Manual) Monocytes # (Manual) Basophils # (Manual) D-Dimer ABG pH 7.272 L POC ABG pCO2 60.1 H 54.6 H POC ABG pO2 82.8 L 78.6 L ABG Hemoglobin 11.4 L ABG Oxyhemoglobin ABG Sodium 132.2 L 130.2 L ABG Potassium ABG Chloride ABG Glucose 166 H 164 H Carboxyhemoglobin 0.4 L Sodium Chloride Carbon Dioxide BUN Creatinine Glucose POC Glucose Calcium Ferritin Lactate Dehydrogenase Total Creatine Kinase CK-MB (CK-2) C-Reactive Protein Total Protein Albumin Arterial Blood Glucose 166 H 164 H Urine WBC (Auto) Vancomycin Trough Coronavirus (PCR) Positive A 12/04/20 12/04/20 12/04/20 05:40 05:40 07:30 WBC 21.7 H RBC Hgb Hct RDW 18.2 H Lymph % (Auto) Tucker # (Auto) Seg Neutrophils % Seg Neuts % (Manual) 74.0 H Lymphocytes % (Manual) 2.0 L Seg Neutrophils # Seg Neutrophils # Man 16.1 H Lymphocytes # (Manual) 0.4 L Monocytes # (Manual) 1.1 H Basophils # (Manual) 0.2 H D-Dimer ABG pH POC ABG pCO2 POC ABG pO2 ABG Hemoglobin ABG Oxyhemoglobin ABG Sodium ABG Potassium ABG Chloride ABG Glucose Carboxyhemoglobin Sodium Chloride Carbon Dioxide BUN 26 H Creatinine 1.7 H D Glucose 157 H POC Glucose Calcium Ferritin Lactate Dehydrogenase Total Creatine Kinase CK-MB (CK-2) C-Reactive Protein Total Protein 6.2 L Albumin 2.6 L Arterial Blood Glucose Urine WBC (Auto) > 182.0 H Vancomycin Trough Coronavirus (PCR) 12/04/20 12/04/20 12/04/20 10:41 10:41 10:41 WBC RBC Hgb Hct RDW Lymph % (Auto) Tucker # (Auto) Seg Neutrophils % Seg Neuts % (Manual) Lymphocytes % (Manual) Seg Neutrophils # Seg Neutrophils # Man Lymphocytes # (Manual) Monocytes # (Manual) Basophils # (Manual) D-Dimer 1838.21 H ABG pH POC ABG pCO2 POC ABG pO2 ABG Hemoglobin ABG Oxyhemoglobin ABG Sodium ABG Potassium ABG Chloride ABG Glucose Carboxyhemoglobin Sodium Chloride Carbon Dioxide BUN Creatinine Glucose POC Glucose Calcium Ferritin 399.0 H Lactate Dehydrogenase 386 H Total Creatine Kinase CK-MB (CK-2) C-Reactive Protein 34.30 H Total Protein Albumin Arterial Blood Glucose Urine WBC (Auto) Vancomycin Trough Coronavirus (PCR) 12/04/20 12/05/20 12/05/20 23:58 00:10 00:45 WBC RBC Hgb Hct RDW Lymph % (Auto) Tucker # (Auto) Seg Neutrophils % Seg Neuts % (Manual) Lymphocytes % (Manual) Seg Neutrophils # Seg Neutrophils # Man Lymphocytes # (Manual) Monocytes # (Manual) Basophils # (Manual) D-Dimer ABG pH POC ABG pCO2 55.5 H POC ABG pO2 ABG Hemoglobin 11.2 L ABG Oxyhemoglobin ABG Sodium 135.0 L ABG Potassium 4.6 H ABG Chloride ABG Glucose 165 H Carboxyhemoglobin Sodium Chloride Carbon Dioxide BUN Creatinine Glucose POC Glucose 134 H 146 H Calcium Ferritin Lactate Dehydrogenase Total Creatine Kinase CK-MB (CK-2) C-Reactive Protein Total Protein Albumin Arterial Blood Glucose 165 H Urine WBC (Auto) Vancomycin Trough Coronavirus (PCR) 12/05/20 12/05/20 12/05/20 11:04 11:04 11:52 WBC 13.0 H RBC 3.61 L Hgb Hct RDW 18.8 H Lymph % (Auto) 13.1 L Tucker # (Auto) 0.9 H Seg Neutrophils % 77.6 H Seg Neuts % (Manual) Lymphocytes % (Manual) Seg Neutrophils # 10.0 H Seg Neutrophils # Man Lymphocytes # (Manual) Monocytes # (Manual) Basophils # (Manual) D-Dimer ABG pH POC ABG pCO2 POC ABG pO2 ABG Hemoglobin ABG Oxyhemoglobin ABG Sodium ABG Potassium ABG Chloride ABG Glucose Carboxyhemoglobin Sodium Chloride Carbon Dioxide 31 H BUN 21 H Creatinine Glucose 152 H POC Glucose 121 H Calcium Ferritin Lactate Dehydrogenase Total Creatine Kinase CK-MB (CK-2) C-Reactive Protein Total Protein Albumin Arterial Blood Glucose Urine WBC (Auto) Vancomycin Trough Coronavirus (PCR) 12/05/20 12/05/20 12/06/20 17:31 23:37 04:00 WBC RBC Hgb Hct RDW Lymph % (Auto) Tucker # (Auto) Seg Neutrophils % Seg Neuts % (Manual) Lymphocytes % (Manual) Seg Neutrophils # Seg Neutrophils # Man Lymphocytes # (Manual) Monocytes # (Manual) Basophils # (Manual) D-Dimer ABG pH 7.471 H POC ABG pCO2 POC ABG pO2 75.2 L ABG Hemoglobin 10.4 L ABG Oxyhemoglobin ABG Sodium 133.7 L ABG Potassium ABG Chloride ABG Glucose 120 H Carboxyhemoglobin Sodium Chloride Carbon Dioxide BUN Creatinine Glucose POC Glucose 148 H 133 H Calcium Ferritin Lactate Dehydrogenase Total Creatine Kinase CK-MB (CK-2) C-Reactive Protein Total Protein Albumin Arterial Blood Glucose 120 H Urine WBC (Auto) Vancomycin Trough Coronavirus (PCR) 12/06/20 12/06/20 12/06/20 05:07 05:07 05:09 WBC RBC 3.37 L Hgb 9.4 L Hct 28.4 L RDW 18.3 H Lymph % (Auto) Tucker # (Auto) Seg Neutrophils % Seg Neuts % (Manual) Lymphocytes % (Manual) Seg Neutrophils # Seg Neutrophils # Man Lymphocytes # (Manual) Monocytes # (Manual) Basophils # (Manual) D-Dimer ABG pH POC ABG pCO2 POC ABG pO2 ABG Hemoglobin ABG Oxyhemoglobin ABG Sodium ABG Potassium ABG Chloride ABG Glucose Carboxyhemoglobin Sodium Chloride Carbon Dioxide 33 H BUN 25 H Creatinine Glucose 131 H POC Glucose 122 H Calcium Ferritin Lactate Dehydrogenase Total Creatine Kinase CK-MB (CK-2) C-Reactive Protein Total Protein Albumin Arterial Blood Glucose Urine WBC (Auto) Vancomycin Trough Coronavirus (PCR) 12/06/20 12/06/20 12/06/20 11:59 16:17 17:30 WBC RBC Hgb Hct RDW Lymph % (Auto) Tucker # (Auto) Seg Neutrophils % Seg Neuts % (Manual) Lymphocytes % (Manual) Seg Neutrophils # Seg Neutrophils # Man Lymphocytes # (Manual) Monocytes # (Manual) Basophils # (Manual) D-Dimer ABG pH POC ABG pCO2 61.8 H POC ABG pO2 180.5 H ABG Hemoglobin ABG Oxyhemoglobin ABG Sodium ABG Potassium ABG Chloride ABG Glucose 142 H Carboxyhemoglobin Sodium Chloride Carbon Dioxide BUN Creatinine Glucose POC Glucose 120 H 114 H Calcium Ferritin Lactate Dehydrogenase Total Creatine Kinase CK-MB (CK-2) C-Reactive Protein Total Protein Albumin Arterial Blood Glucose 142 H Urine WBC (Auto) Vancomycin Trough Coronavirus (PCR) 12/06/20 12/07/20 12/07/20 23:09 04:00 04:00 WBC RBC 3.47 L Hgb 9.5 L Hct 29.5 L RDW 18.7 H Lymph % (Auto) Tucker # (Auto) Seg Neutrophils % Seg Neuts % (Manual) Lymphocytes % (Manual) Seg Neutrophils # Seg Neutrophils # Man Lymphocytes # (Manual) Monocytes # (Manual) Basophils # (Manual) D-Dimer ABG pH POC ABG pCO2 55.9 H POC ABG pO2 ABG Hemoglobin 11.6 L ABG Oxyhemoglobin ABG Sodium 135.2 L ABG Potassium 4.7 H ABG Chloride ABG Glucose 141 H Carboxyhemoglobin Sodium Chloride Carbon Dioxide BUN Creatinine Glucose POC Glucose 112 H Calcium Ferritin Lactate Dehydrogenase Total Creatine Kinase CK-MB (CK-2) C-Reactive Protein Total Protein Albumin Arterial Blood Glucose 141 H Urine WBC (Auto) Vancomycin Trough Coronavirus (PCR) 12/07/20 12/07/20 12/07/20 05:00 05:28 12:20 WBC RBC Hgb Hct RDW Lymph % (Auto) Tucker # (Auto) Seg Neutrophils % Seg Neuts % (Manual) Lymphocytes % (Manual) Seg Neutrophils # Seg Neutrophils # Man Lymphocytes # (Manual) Monocytes # (Manual) Basophils # (Manual) D-Dimer ABG pH POC ABG pCO2 POC ABG pO2 ABG Hemoglobin ABG Oxyhemoglobin ABG Sodium ABG Potassium ABG Chloride ABG Glucose Carboxyhemoglobin Sodium Chloride 96.6 L Carbon Dioxide 35 H BUN 29 H Creatinine Glucose 148 H POC Glucose 139 H 130 H Calcium Ferritin Lactate Dehydrogenase Total Creatine Kinase CK-MB (CK-2) C-Reactive Protein Total Protein Albumin Arterial Blood Glucose Urine WBC (Auto) Vancomycin Trough Coronavirus (PCR) 12/07/20 12/07/20 12/08/20 16:54 23:15 04:00 WBC RBC Hgb Hct RDW Lymph % (Auto) Tucker # (Auto) Seg Neutrophils % Seg Neuts % (Manual) Lymphocytes % (Manual) Seg Neutrophils # Seg Neutrophils # Man Lymphocytes # (Manual) Monocytes # (Manual) Basophils # (Manual) D-Dimer ABG pH POC ABG pCO2 53.4 H POC ABG pO2 ABG Hemoglobin 11.4 L ABG Oxyhemoglobin ABG Sodium ABG Potassium ABG Chloride 96.0 L ABG Glucose 149 H Carboxyhemoglobin Sodium Chloride Carbon Dioxide BUN Creatinine Glucose POC Glucose 121 H 166 H Calcium Ferritin Lactate Dehydrogenase Total Creatine Kinase CK-MB (CK-2) C-Reactive Protein Total Protein Albumin Arterial Blood Glucose 149 H Urine WBC (Auto) Vancomycin Trough Coronavirus (PCR) 12/08/20 12/08/20 12/08/20 05:29 08:33 08:33 WBC 11.2 H RBC 3.64 L Hgb Hct 30.2 L RDW 18.1 H Lymph % (Auto) Tucker # (Auto) Seg Neutrophils % Seg Neuts % (Manual) Lymphocytes % (Manual) Seg Neutrophils # Seg Neutrophils # Man Lymphocytes # (Manual) Monocytes # (Manual) Basophils # (Manual) D-Dimer ABG pH POC ABG pCO2 POC ABG pO2 ABG Hemoglobin ABG Oxyhemoglobin ABG Sodium ABG Potassium ABG Chloride ABG Glucose Carboxyhemoglobin Sodium Chloride 96.2 L Carbon Dioxide 33 H BUN 31 H Creatinine Glucose 166 H POC Glucose 128 H Calcium 10.3 H Ferritin Lactate Dehydrogenase Total Creatine Kinase CK-MB (CK-2) C-Reactive Protein Total Protein Albumin Arterial Blood Glucose Urine WBC (Auto) Vancomycin Trough Coronavirus (PCR) 12/08/20 12/08/20 12/09/20 11:53 16:46 00:20 WBC RBC Hgb Hct RDW Lymph % (Auto) Tucker # (Auto) Seg Neutrophils % Seg Neuts % (Manual) Lymphocytes % (Manual) Seg Neutrophils # Seg Neutrophils # Man Lymphocytes # (Manual) Monocytes # (Manual) Basophils # (Manual) D-Dimer ABG pH POC ABG pCO2 POC ABG pO2 ABG Hemoglobin ABG Oxyhemoglobin ABG Sodium ABG Potassium ABG Chloride ABG Glucose Carboxyhemoglobin Sodium Chloride Carbon Dioxide BUN Creatinine Glucose POC Glucose 170 H 157 H 164 H Calcium Ferritin Lactate Dehydrogenase Total Creatine Kinase CK-MB (CK-2) C-Reactive Protein Total Protein Albumin Arterial Blood Glucose Urine WBC (Auto) Vancomycin Trough Coronavirus (PCR) 12/09/20 12/09/20 12/09/20 04:00 05:07 05:07 WBC 11.4 H RBC 3.53 L Hgb 9.8 L Hct 29.2 L RDW 17.8 H Lymph % (Auto) Tucker # (Auto) Seg Neutrophils % Seg Neuts % (Manual) Lymphocytes % (Manual) Seg Neutrophils # Seg Neutrophils # Man Lymphocytes # (Manual) Monocytes # (Manual) Basophils # (Manual) D-Dimer ABG pH POC ABG pCO2 54.4 H POC ABG pO2 ABG Hemoglobin 10.5 L ABG Oxyhemoglobin ABG Sodium ABG Potassium ABG Chloride ABG Glucose 204 H Carboxyhemoglobin Sodium Chloride Carbon Dioxide 33 H BUN 38 H Creatinine Glucose 189 H POC Glucose Calcium Ferritin Lactate Dehydrogenase Total Creatine Kinase CK-MB (CK-2) C-Reactive Protein Total Protein Albumin Arterial Blood Glucose 204 H Urine WBC (Auto) Vancomycin Trough Coronavirus (PCR) 12/09/20 12/09/20 12/09/20 05:30 11:57 17:33 WBC RBC Hgb Hct RDW Lymph % (Auto) Tucker # (Auto) Seg Neutrophils % Seg Neuts % (Manual) Lymphocytes % (Manual) Seg Neutrophils # Seg Neutrophils # Man Lymphocytes # (Manual) Monocytes # (Manual) Basophils # (Manual) D-Dimer ABG pH POC ABG pCO2 POC ABG pO2 ABG Hemoglobin ABG Oxyhemoglobin ABG Sodium ABG Potassium ABG Chloride ABG Glucose Carboxyhemoglobin Sodium Chloride Carbon Dioxide BUN Creatinine Glucose POC Glucose 190 H 153 H 180 H Calcium Ferritin Lactate Dehydrogenase Total Creatine Kinase CK-MB (CK-2) C-Reactive Protein Total Protein Albumin Arterial Blood Glucose Urine WBC (Auto) Vancomycin Trough Coronavirus (PCR) 12/10/20 12/10/20 12/10/20 00:28 03:16 05:03 WBC 11.5 H RBC 3.42 L Hgb 9.4 L Hct 29.3 L RDW 17.9 H Lymph % (Auto) Tucker # (Auto) Seg Neutrophils % Seg Neuts % (Manual) Lymphocytes % (Manual) Seg Neutrophils # Seg Neutrophils # Man Lymphocytes # (Manual) Monocytes # (Manual) Basophils # (Manual) D-Dimer ABG pH 7.493 H POC ABG pCO2 POC ABG pO2 71.4 L ABG Hemoglobin 9.9 L ABG Oxyhemoglobin ABG Sodium ABG Potassium ABG Chloride ABG Glucose 181 H Carboxyhemoglobin 0.4 L Sodium Chloride Carbon Dioxide BUN Creatinine Glucose POC Glucose 173 H Calcium Ferritin Lactate Dehydrogenase Total Creatine Kinase CK-MB (CK-2) C-Reactive Protein Total Protein Albumin Arterial Blood Glucose 181 H Urine WBC (Auto) Vancomycin Trough Coronavirus (PCR) 12/10/20 12/10/20 12/10/20 05:03 05:48 11:41 WBC RBC Hgb Hct RDW Lymph % (Auto) Tucker # (Auto) Seg Neutrophils % Seg Neuts % (Manual) Lymphocytes % (Manual) Seg Neutrophils # Seg Neutrophils # Man Lymphocytes # (Manual) Monocytes # (Manual) Basophils # (Manual) D-Dimer ABG pH POC ABG pCO2 POC ABG pO2 ABG Hemoglobin ABG Oxyhemoglobin ABG Sodium ABG Potassium ABG Chloride ABG Glucose Carboxyhemoglobin Sodium Chloride Carbon Dioxide BUN 34 H Creatinine Glucose 174 H POC Glucose 176 H 203 H Calcium Ferritin Lactate Dehydrogenase Total Creatine Kinase CK-MB (CK-2) C-Reactive Protein Total Protein Albumin Arterial Blood Glucose Urine WBC (Auto) Vancomycin Trough Coronavirus (PCR) 12/10/20 12/10/20 12/11/20 16:32 23:27 04:00 WBC RBC Hgb Hct RDW Lymph % (Auto) Tucker # (Auto) Seg Neutrophils % Seg Neuts % (Manual) Lymphocytes % (Manual) Seg Neutrophils # Seg Neutrophils # Man Lymphocytes # (Manual) Monocytes # (Manual) Basophils # (Manual) D-Dimer ABG pH 7.517 H POC ABG pCO2 POC ABG pO2 ABG Hemoglobin 10.0 L ABG Oxyhemoglobin ABG Sodium ABG Potassium ABG Chloride ABG Glucose 175 H Carboxyhemoglobin 0.3 L Sodium Chloride Carbon Dioxide BUN Creatinine Glucose POC Glucose 148 H 186 H Calcium Ferritin Lactate Dehydrogenase Total Creatine Kinase CK-MB (CK-2) C-Reactive Protein Total Protein Albumin Arterial Blood Glucose 175 H Urine WBC (Auto) Vancomycin Trough Coronavirus (PCR) 12/11/20 12/11/20 12/11/20 05:18 06:05 06:05 WBC RBC 3.19 L Hgb 9.0 L Hct 27.1 L RDW 18.0 H Lymph % (Auto) Tucker # (Auto) Seg Neutrophils % Seg Neuts % (Manual) Lymphocytes % (Manual) Seg Neutrophils # Seg Neutrophils # Man Lymphocytes # (Manual) Monocytes # (Manual) Basophils # (Manual) D-Dimer ABG pH POC ABG pCO2 POC ABG pO2 ABG Hemoglobin ABG Oxyhemoglobin ABG Sodium ABG Potassium ABG Chloride ABG Glucose Carboxyhemoglobin Sodium Chloride Carbon Dioxide BUN 33 H Creatinine Glucose 158 H POC Glucose 151 H Calcium Ferritin Lactate Dehydrogenase Total Creatine Kinase CK-MB (CK-2) C-Reactive Protein Total Protein Albumin Arterial Blood Glucose Urine WBC (Auto) Vancomycin Trough Coronavirus (PCR) 12/11/20 12/11/20 12/11/20 12:17 18:07 23:30 WBC RBC Hgb Hct RDW Lymph % (Auto) Tucker # (Auto) Seg Neutrophils % Seg Neuts % (Manual) Lymphocytes % (Manual) Seg Neutrophils # Seg Neutrophils # Man Lymphocytes # (Manual) Monocytes # (Manual) Basophils # (Manual) D-Dimer ABG pH POC ABG pCO2 POC ABG pO2 ABG Hemoglobin ABG Oxyhemoglobin ABG Sodium ABG Potassium ABG Chloride ABG Glucose Carboxyhemoglobin Sodium Chloride Carbon Dioxide BUN Creatinine Glucose POC Glucose 163 H 152 H 144 H Calcium Ferritin Lactate Dehydrogenase Total Creatine Kinase CK-MB (CK-2) C-Reactive Protein Total Protein Albumin Arterial Blood Glucose Urine WBC (Auto) Vancomycin Trough Coronavirus (PCR) 12/12/20 12/12/20 12/12/20 04:00 04:27 11:29 WBC RBC Hgb Hct RDW Lymph % (Auto) Tucker # (Auto) Seg Neutrophils % Seg Neuts % (Manual) Lymphocytes % (Manual) Seg Neutrophils # Seg Neutrophils # Man Lymphocytes # (Manual) Monocytes # (Manual) Basophils # (Manual) D-Dimer ABG pH 7.453 H POC ABG pCO2 POC ABG pO2 79.3 L ABG Hemoglobin 9.3 L ABG Oxyhemoglobin ABG Sodium ABG Potassium ABG Chloride ABG Glucose 159 H Carboxyhemoglobin Sodium Chloride Carbon Dioxide BUN Creatinine Glucose POC Glucose 146 H 135 H Calcium Ferritin Lactate Dehydrogenase Total Creatine Kinase CK-MB (CK-2) C-Reactive Protein Total Protein Albumin Arterial Blood Glucose 159 H Urine WBC (Auto) Vancomycin Trough Coronavirus (PCR) 12/12/20 12/12/20 12/12/20 17:31 18:47 18:47 WBC RBC 3.38 L Hgb 9.3 L Hct 29.3 L RDW 18.8 H Lymph % (Auto) Tucker # (Auto) Seg Neutrophils % Seg Neuts % (Manual) Lymphocytes % (Manual) Seg Neutrophils # Seg Neutrophils # Man Lymphocytes # (Manual) Monocytes # (Manual) Basophils # (Manual) D-Dimer ABG pH POC ABG pCO2 POC ABG pO2 ABG Hemoglobin ABG Oxyhemoglobin ABG Sodium ABG Potassium ABG Chloride ABG Glucose Carboxyhemoglobin Sodium Chloride Carbon Dioxide BUN Creatinine Glucose POC Glucose 145 H Calcium Ferritin Lactate Dehydrogenase Total Creatine Kinase CK-MB (CK-2) C-Reactive Protein Total Protein Albumin Arterial Blood Glucose Urine WBC (Auto) Vancomycin Trough 30.6 H Coronavirus (PCR) 12/12/20 12/13/20 12/13/20 23:38 04:52 04:52 WBC RBC 3.24 L Hgb 9.0 L Hct 27.6 L RDW 17.9 H Lymph % (Auto) Tucker # (Auto) Seg Neutrophils % Seg Neuts % (Manual) Lymphocytes % (Manual) Seg Neutrophils # Seg Neutrophils # Man Lymphocytes # (Manual) Monocytes # (Manual) Basophils # (Manual) D-Dimer ABG pH POC ABG pCO2 POC ABG pO2 ABG Hemoglobin ABG Oxyhemoglobin ABG Sodium ABG Potassium ABG Chloride ABG Glucose Carboxyhemoglobin Sodium Chloride Carbon Dioxide BUN 27 H Creatinine Glucose 157 H POC Glucose 123 H Calcium Ferritin Lactate Dehydrogenase Total Creatine Kinase CK-MB (CK-2) C-Reactive Protein Total Protein Albumin 2.9 L Arterial Blood Glucose Urine WBC (Auto) Vancomycin Trough Coronavirus (PCR) 12/13/20 05:22 WBC RBC Hgb Hct RDW Lymph % (Auto) Tucker # (Auto) Seg Neutrophils % Seg Neuts % (Manual) Lymphocytes % (Manual) Seg Neutrophils # Seg Neutrophils # Man Lymphocytes # (Manual) Monocytes # (Manual) Basophils # (Manual) D-Dimer ABG pH POC ABG pCO2 POC ABG pO2 ABG Hemoglobin ABG Oxyhemoglobin ABG Sodium ABG Potassium ABG Chloride ABG Glucose Carboxyhemoglobin Sodium Chloride Carbon Dioxide BUN Creatinine Glucose POC Glucose 176 H Calcium Ferritin Lactate Dehydrogenase Total Creatine Kinase CK-MB (CK-2) C-Reactive Protein Total Protein Albumin Arterial Blood Glucose Urine WBC (Auto) Vancomycin Trough Coronavirus (PCR) Chest x-ray: pending Allied health notes reviewed: nursing
[2020-12-13] MEDS: PIPERACIL/TAZOBACTA 4.5/NS 100 4.5 GM/100 ML VIAL IV SCH ×2 (13:20→20:25)
[2020-12-13] MEDS ORDERED: FUROSEMIDE 20 MG/2 ML INJ IV STA (17:31)
[2020-12-13] MEDS: SCOPOLAMINE TRANSDERMAL PATCH 72 HR TD SCH (17:48)
--- NOTE | 2020-12-13 17:56 | Progress Note ---
Assessment and Plan Assessment and plan: #Acute hypoxic respiratory failure -secondary to angioedema -currently on mechanical ventilation, precedex for agitation -Management per CCM -Continue vent bundle -Daily SBT -continue pepcid for GI ppx -1 dose of Lasix per [facility] -pending [place] transfer #Severe tracheal stenosis -History of intubation over 40 times #Angioedema -history of hereditary idiopathic angioedema alpha gal syndrome -will need outpatient allergy/ENT follow-up #Hypertension - hypertensive urgency on presentation, resolved - continue HCTZ #Status post cardiac arrest -12/06 respiratory arrest #History type 2 diabetes -POC glucose q6h, continue sliding scale insulin -tube feeds @ 65cc #NINI -Resolved History Interval history: No acute events overnight. Patient intubated and able to follow commands. Denies pain. Hospitalist Physical - Constitutional Vitals: Temp Pulse Resp BP Pulse Ox 98.6 F 87 17 136/71 98 12/13/20 16:00 12/13/20 16:52 12/13/20 16:45 12/13/20 16:52 12/13/20 16:52 General appearance: Present: no acute distress, well-nourished, obese, other (Intubated on vent, sedated but follows commands) - EENT Eyes: Present: PERRL - Respiratory Respiratory effort: normal, other (ETT in place) Respiratory: bilateral: rales - Cardiovascular Rhythm: regular - Extremities Extremities: pulses symmetrical, No edema - Abdominal General gastrointestinal: soft, tender, non-distended, normal bowel sounds - Integumentary Integumentary: Present: warm, dry - Neurologic Neurologic: moves all extremities - Allied Health Allied health notes reviewed: nursing, social work HEART Score - HEART Score Troponin: Troponin T < 0.010 ng/mL (0.00-0.029) 11/30/20 14:12 Results - Labs CBC & Chem 7: 12/13/20 04:52 12/13/20 04:52 Labs: Laboratory Last Values WBC 9.1 K/mm3 (4.5-11.0) 12/13/20 04:52 RBC 3.24 M/mm3 (3.65-5.03) L 12/13/20 04:52 Hgb 9.0 gm/dl (10.1-14.3) L 12/13/20 04:52 Hct 27.6 % (30.3-42.9) L 12/13/20 04:52 MCV 85 fl (79-97) 12/13/20 04:52 MCH 28 pg (28-32) 12/13/20 04:52 MCHC 33 % (30-34) 12/13/20 04:52 RDW 17.9 % (13.2-15.2) H 12/13/20 04:52 Plt Count 222 K/mm3 (140-440) 12/13/20 04:52 Lymph % (Auto) 13.1 % (13.4-35.0) L 12/05/20 11:04 Rock % (Auto) 6.7 % (0.0-7.3) 12/05/20 11:04 Eos % (Auto) 2.2 % (0.0-4.3) 12/05/20 11:04 Baso % (Auto) 0.4 % (0.0-1.8) 12/05/20 11:04 Lymph # (Auto) 1.7 K/mm3 (1.2-5.4) 12/05/20 11:04 Rock # (Auto) 0.9 K/mm3 (0.0-0.8) H 12/05/20 11:04 Eos # (Auto) 0.3 K/mm3 (0.0-0.4) 12/05/20 11:04 Baso # (Auto) 0.1 K/mm3 (0.0-0.1) 12/05/20 11:04 Add Manual Diff Complete 12/04/20 05:40 Total Counted 100 12/04/20 05:40 Seg Neutrophils % 77.6 % (40.0-70.0) H 12/05/20 11:04 Seg Neuts % (Manual) 74.0 % (40.0-70.0) H 12/04/20 05:40 Band Neutrophils % 16.0 % 12/04/20 05:40 Lymphocytes % (Manual) 2.0 % (13.4-35.0) L 12/04/20 05:40 Monocytes % (Manual) 5.0 % (0.0-7.3) 12/04/20 05:40 Eosinophils % (Manual) 2.0 % (0.0-4.3) 12/04/20 05:40 Basophils % (Manual) 1.0 % (0.0-1.8) 12/04/20 05:40 Nucleated RBC % Not Reportable 12/04/20 05:40 Seg Neutrophils # 10.0 K/mm3 (1.8-7.7) H 12/05/20 11:04 Seg Neutrophils # Man 16.1 K/mm3 (1.8-7.7) H 12/04/20 05:40 Band Neutrophils # 3.5 K/mm3 12/04/20 05:40 Lymphocytes # (Manual) 0.4 K/mm3 (1.2-5.4) L 12/04/20 05:40 Abs React Lymphs (Man) 0.0 K/mm3 12/04/20 05:40 Monocytes # (Manual) 1.1 K/mm3 (0.0-0.8) H 12/04/20 05:40 Eosinophils # (Manual) 0.4 K/mm3 (0.0-0.4) 12/04/20 05:40 Basophils # (Manual) 0.2 K/mm3 (0.0-0.1) H 12/04/20 05:40 Metamyelocytes # 0.0 K/mm3 12/04/20 05:40 Myelocytes # 0.0 K/mm3 12/04/20 05:40 Promyelocytes # 0.0 K/mm3 12/04/20 05:40 Blast Cells # 0.0 K/mm3 12/04/20 05:40 WBC Morphology Not Reportable 12/04/20 05:40 Hypersegmented Neuts Not Reportable 12/04/20 05:40 Hyposegmented Neuts Not Reportable 12/04/20 05:40 Hypogranular Neuts Not Reportable 12/04/20 05:40 Smudge Cells Not Reportable 12/04/20 05:40 Toxic Granulation Not Reportable 12/04/20 05:40 Toxic Vacuolation Not Reportable 12/04/20 05:40 Dohle Bodies Not Reportable 12/04/20 05:40 Pelger-Huet Anomaly Not Reportable 12/04/20 05:40 Solomon Rods Not Reportable 12/04/20 05:40 Platelet Estimate Not Reportable 12/04/20 05:40 Clumped Platelets 1+ 12/04/20 05:40 Plt Clumps, EDTA Not Reportable 12/04/20 05:40 Large Platelets Not Reportable 12/04/20 05:40 Giant Platelets Not Reportable 12/04/20 05:40 Platelet Satelliting Not Reportable 12/04/20 05:40 Plt Morphology Comment Not Reportable 12/04/20 05:40 RBC Morphology Normal 12/04/20 05:40 Dimorphic RBCs Not Reportable 12/04/20 05:40 Polychromasia Not Reportable 12/04/20 05:40 Hypochromasia Not Reportable 12/04/20 05:40 Poikilocytosis Not Reportable 12/04/20 05:40 Anisocytosis Not Reportable 12/04/20 05:40 Microcytosis Not Reportable 12/04/20 05:40 Macrocytosis Not Reportable 12/04/20 05:40 Spherocytes Not Reportable 12/04/20 05:40 Pappenheimer Bodies Not Reportable 12/04/20 05:40 Sickle Cells Not Reportable 12/04/20 05:40 Target Cells Not Reportable 12/04/20 05:40 Tear Drop Cells Not Reportable 12/04/20 05:40 Ovalocytes Not Reportable 12/04/20 05:40 Helmet Cells Not Reportable 12/04/20 05:40 Mer[place]-Severance Bodies Not Reportable 12/04/20 05:40 [place] Rings Not Reportable 12/04/20 05:40 [place] Cells Not Reportable 12/04/20 05:40 Bite Cells Not Reportable 12/04/20 05:40 Crenated Cell Not Reportable 12/04/20 05:40 Elliptocytes Not Reportable 12/04/20 05:40 Acanthocytes (Spur) Not Reportable 12/04/20 05:40 Rouleaux Not Reportable 12/04/20 05:40 Hemoglobin C Crystals Not Reportable 12/04/20 05:40 Schistocytes Not Reportable 12/04/20 05:40 Malaria parasites Not Reportable 12/04/20 05:40 Charanjit Bodies Not Reportable 12/04/20 05:40 Hem Pathologist Commnt No 12/04/20 05:40 PT 13.9 Sec. (12.2-14.9) 12/07/20 04:00 INR 1.02 (0.87-1.13) 12/07/20 04:00 D-Dimer 1838.21 ng/mlDDU (0-234) H 12/04/20 10:41 ABG pH 7.453 (7.320-7.450) H 12/12/20 04:00 POC ABG pCO2 41.4 mmHg (32.0-48.0) 12/12/20 04:00 POC ABG pO2 79.3 mmHg (83-108) L 12/12/20 04:00 POC ABG HCO3 28.3 12/12/20 04:00 ABG O2 Saturation 95.5 (0-100) 12/12/20 04:00 POC ABG Base Excess 4.0 12/12/20 04:00 ABG Hemoglobin 9.3 (12.0-17.5) L 12/12/20 04:00 ABG Oxyhemoglobin 94.7 (94-98) 12/12/20 04:00 ABG Methemoglobin 0.3 (0.0-1.5) 12/12/20 04:00 ABG Sodium 139.0 mmol/L (136.0-145.0) 12/12/20 04:00 ABG Potassium 4.1 mmol/L (3.40-4.50) 12/12/20 04:00 ABG Chloride 102.0 mmol/L (98-107) 12/12/20 04:00 ABG Glucose 159 mg/dL (65-95) H 12/12/20 04:00 Carboxyhemoglobin 0.5 (0.5-1.5) 12/12/20 04:00 FiO2 % 40.0 12/12/20 04:00 Sodium 138 mmol/L (137-145) 12/13/20 04:52 Potassium 4.4 mmol/L (3.6-5.0) 12/13/20 04:52 Chloride 102.2 mmol/L (98-107) 12/13/20 04:52 Carbon Dioxide 30 mmol/L (22-30) 12/13/20 04:52 Anion Gap 10 mmol/L 12/13/20 04:52 BUN 27 mg/dL (7-17) H 12/13/20 04:52 Creatinine 0.6 mg/dL (0.6-1.2) 12/13/20 04:52 Estimated GFR > 60 ml/min 12/13/20 04:52 BUN/Creatinine Ratio 45 % 12/13/20 04:52 Glucose 157 mg/dL (65-100) H 12/13/20 04:52 POC Glucose 139 mg/dL (70-105) H 12/13/20 17:36 Calcium 9.0 mg/dL (8.4-10.2) 12/13/20 04:52 Phosphorus TNR 12/12/20 14:33 Magnesium 2.10 mg/dL (1.7-2.3) 12/11/20 06:05 Ferritin 399.0 ng/mL (10.0-200.0) H 12/04/20 10:41 Total Bilirubin 0.30 mg/dL (0.1-1.2) 12/13/20 04:52 Direct Bilirubin < 0.2 mg/dL (0-0.2) 11/29/20 07:48 Indirect Bilirubin 0.0 mg/dL 11/29/20 07:48 AST 16 units/L (5-40) 12/13/20 04:52 ALT 28 units/L (7-56) 12/13/20 04:52 Alkaline Phosphatase 59 units/L (35-129) 12/13/20 04:52 Lactate Dehydrogenase 386 units/L (91-180) H 12/04/20 10:41 Total Creatine Kinase 1132 units/L (30-135) H 11/30/20 14:12 CK-MB (CK-2) 14.6 ng/mL (0.0-4.0) H 11/30/20 14:12 CK-MB (CK-2) Rel Index 1.2 (0-4) 11/30/20 14:12 Troponin T < 0.010 ng/mL (0.00-0.029) 11/30/20 14:12 C-Reactive Protein 34.30 mg/dL (0.00-1.30) H 12/04/20 10:41 Total Protein 6.5 g/dL (6.3-8.2) 12/13/20 04:52 Albumin 2.9 g/dL (3.9-5) L 12/13/20 04:52 Albumin/Globulin Ratio 0.8 % 12/13/20 04:52 HCG, Qual Negative (Negative) 11/29/20 07:48 Arterial Blood Glucose 159 mg/dL (65-95) H 12/12/20 04:00 Arterial Blood Ionized Calcium 4.8 mg/dL (4.6-5.3) 12/12/20 04:00 Urine Color Colorless (Yellow) 12/11/20 12:22 Urine Turbidity Clear (Clear) 12/11/20 12:22 Urine pH 5.0 (5.0-7.0) 12/11/20 12:22 Ur Specific Protem 1.005 (1.003-1.030) 12/11/20 12:22 Urine Protein <15 mg/dl mg/dL (Negative) 12/11/20 12:22 Urine Glucose (UA) Neg mg/dL (Negative) 12/11/20 12:22 Urine Ketones Neg mg/dL (Negative) 12/11/20 12:22 Urine Blood Sm (Negative) 12/11/20 12:22 Urine Nitrite Neg (Negative) 12/11/20 12:22 Urine Bilirubin Neg (Negative) 12/11/20 12:22 Urine Urobilinogen < 2.0 mg/dL (<2.0) 12/11/20 12:22 Ur Leukocyte Esterase Neg (Negative) 12/11/20 12:22 Urine WBC (Auto) < 1.0 /HPF (0.0-6.0) 12/11/20 12:22 Urine RBC (Auto) 11.0 /HPF (0.0-6.0) 12/11/20 12:22 U Epithel Cells (Auto) 1.0 /HPF (0-13.0) 12/11/20 12:22 Urine Bacteria (Auto) 1+ /HPF (Negative) 12/11/20 12:22 Urine WBC Clumps 3+ /HPF 12/04/20 07:30 RBC Casts 1 /LPF 12/11/20 12:22 WBC Casts 17 /LPF 12/04/20 07:30 Urine Mucus Few /HPF 12/11/20 12:22 Nasal Screen MRSA (PCR) Negative (Negative) 12/13/20 10:24 Vancomycin Trough 30.6 ug/mL (5.0-20.0) H 12/12/20 18:47 Coronavirus (PCR) Positive (Negative) A 12/03/20 08:00 Microbiology: Microbiology 12/11/20 12:54 Peripheral/Venous Blood Culture - Preliminary NO GROWTH AFTER 48 HOURS 12/11/20 12:54 Peripheral/Venous Blood Culture - Preliminary NO GROWTH AFTER 48 HOURS 12/11/20 21:19 Tracheal Aspirate Sputum Culture - Preliminary Dash/IV: Voiding Method Indwelling Catheter Active Medications - Current Medications Current Medications: Generic Name Dose Route Start Last Admin Trade Name Freq PRN Reason Stop Dose Admin Acetaminophen 650 mg 12/04/20 00:39 12/10/20 05:24 Acetaminophen 325 Mg Tab PO 650 mg Q6H PRN Administration Fever >101 Albuterol 2.5 mg 11/29/20 15:22 Albuterol 2.5 Mg/3 Ml Nebu IH Q4HRT PRN Shortness Of Breath Albuterol/Ipratropium 1 ampul 12/07/20 20:00 12/13/20 08:24 Ipratropium/Albuterol Sulfate 3 Ml Ampul.Neb IH 1 ampul Q12HRT KRYSTAL Administration Lipase/Protease/Amylase 1 each 11/29/20 15:23 Lipase 10,500/Protease 25,000/Amylase 43,750 (Units) Dr Ariza FEEDTUBE PRN PRN For Clogged Feeding Tube Ascorbic Acid 500 mg 12/04/20 22:00 12/13/20 10:41 Ascorbic Acid 500 Mg Tab PO 500 mg BID KRYSTAL Administration Dextrose 50 ml 12/05/20 10:34 Dextrose 50% In Water (25gm) 50 Ml Syringe IV Q30MIN PRN Hypoglycemia Protocol Famotidine 20 mg 11/30/20 15:00 12/13/20 10:39 Famotidine 20 Mg/2 Ml Inj IV 20 mg BID KRYSTAL Administration Fentanyl 50 mcg 11/29/20 10:22 Fentanyl 100 Mcg/2 Ml Inj IV Q10MIN PRN ANALGESIA Fondaparinux 2.5 mg 11/29/20 22:00 12/12/20 22:01 Fondaparinux 2.5 Mg/0.5 Ml Inj SUB-Q 2.5 mg Q24H KRYSTAL Administration Gabapentin 600 mg 11/30/20 17:00 12/13/20 10:37 Gabapentin 500 Mg/10 Ml Oral Liqd PO 600 mg BID KRYSTAL Administration Glycopyrrolate 2 mg 12/13/20 20:00 Glycopyrrolate 2 Mg Tab PO TID KRYSTAL Hydrochlorothiazide 12.5 mg 12/10/20 10:00 12/13/20 10:39 Hydrochlorothiazide 12.5 Mg Cap PO 12.5 mg QDAY KRYSTAL Administration Hydrophilic Ointment 1 applic 12/01/20 08:54 Lip Therapy Vaseline TP Q2HR PRN Dry Lips Fentanyl Citrate 2,000 mcg in 100 mls @ 6.45 mls/hr 11/29/20 12:30 12/13/20 15:59 Fentanyl Drip Premix IV 3 mcg/kg/hr TITR KRYSTAL 19.35 mls/hr Administration Protocol 1 MCG/KG/HR Dexmedetomidine HCl 400 mcg/ 104 mls @ 6.885 mls/hr 12/08/20 16:00 12/13/20 17:47 Sodium Chloride IV 1 mcg/kg/hr TITRATE KRYSTAL 34.424 mls/hr Administration Protocol 0.2 MCG/KG/HR Piperacillin Sod/Tazobactam Sod 4.5 gm in 100 mls @ 200 mls/hr 12/13/20 12:00 12/13/20 13:20 Zosyn/Ns 4.5gm/100ml IV 200 mls/hr Q8H KRYSTAL Administration Protocol Insulin Human Regular 0 units 12/05/20 12:00 12/13/20 13:08 Insulin Regular, Human 100 Units/1 Ml SUB-Q Not Given Q6HR KRYSTAL Protocol Montelukast Sodium 10 mg 11/29/20 22:00 12/12/20 22:01 Montelukast 10 Mg Tab PO 10 mg HS KRYSTAL Administration Multi-Ingred Cream/Lotion/Oil/Oint 1 applic 12/01/20 08:54 Mineral Oil/Petrolatum, White Ophth Oint 3.5 Gm OU Q4HR PRN Dry Eye(s) Quetiapine Fumarate 150 mg 12/12/20 14:00 12/13/20 13:20 Quetiapine 100 Mg Tab PO 150 mg Q8H KRYSTAL Administration Scopolamine 1 each 12/13/20 18:00 12/13/20 17:48 Scopolamine Transdermal Patch 72 Hr TD 1 each Q3D KRYSTAL Administration Senna/Docusate Sodium 1 tab 11/29/20 10:00 12/13/20 10:40 Sennosides/Docusate Sodium 8.6/50 Mg Tab FEEDTUBE 1 tab BID KRYSTAL Administration Simple Syrup 15 ml 11/29/20 15:23 Simple Syrup 15 Ml FEEDTUBE PRN PRN Hypoglycemia Simple Syrup 30 ml 11/29/20 15:23 Simple Syrup 15 Ml FEEDTUBE PRN PRN Hypoglycemia Sodium Bicarbonate 325 mg 11/29/20 15:23 Sodium Bicarbonate 325 Mg Tab FEEDTUBE PRN PRN For Clogged Feeding Tube Zinc Sulfate 220 mg 12/05/20 10:00 12/13/20 10:41 Zinc Sulfate 220 Mg Cap PO 220 mg QDAY KRYSTAL Administration Nutrition/Malnutrition Assess - Dietary Evaluation Nutrition/Malnutrition Findings: Nutrition Notes Start: 11/30/20 09:03 Freq: Status: Active Protocol: Document 12/13/20 11:20 (Rec: 12/13/20 11:23 [id number]) Nutrition Notes Initial or Follow up Reassessment Current Diagnosis Respiratory Failure Other Pertinent Diagnosis allergic reaction, alpha gal, hx HTN Current Diet Vital HP at 65 ml/hr Labs/Tests BUN 27 BG 157 Pertinent Medications Zinc Vitamin C Height 5 ft 6 in Weight 132.4 kg [place] Body Weight (kg) 59.09 BMI 47.1 Weight Status Morbidly Obese Subjective/Other Information Pt tolerating TF at goal rate. No signs of intolerance noted . Percent of energy/protein needs met: 84%/91% Burn Absent Trauma Absent Difficulty In Swallowing Current % PO Negligible #1 Nutrition Diagnosis Inadequate oral intake Diagnosis Progress(for reassessment Continues documentation) Is patient on ventilator? Yes Is Patient Ambulatory and/or Out of Bed No REE-([facility]-confined to bed) 2421.060 Kcal/Kg value to use for calculation 14 Approximate Energy Requirements Using 1854 kcal/Kg Calculation Used for Recommendations Kcal/kg Additional Notes Protein needs: 2.5 g/kg IBW , 148 g Fluid needs: 1ml/kcal Nutrition Intervention Change Diet Order: continue Nutrition Support: Vital High Protein at 65 ml/hr flush 45 ml q4h Kcal 1,560 Protein (gm) 135 Fluid (mL) 1,304 Goal #1 Meet at least 75% of protein and kcal needs via TF Anticipated Discharge Needs: Unable to determine at this time Follow-Up By: 12/20/20 Additional Comments F/u: stable TF, tolerance
--- NOTE | 2020-12-13 18:08 | XRay Report ---
CHEST 1 VIEW 12/13/2020 4:56 PM INDICATION / CLINICAL INFORMATION: acute pulmonary edema. COMPARISON: One view of the chest from 12/10/2020. FINDINGS: SUPPORT DEVICES: Unchanged. HEART / MEDIASTINUM: Stable. LUNGS / PLEURA: Jaundice bilateral pulmonary opacities have increased significantly. No significant p leural effusion. No pneumothorax. ADDITIONAL FINDINGS: No significant additional findings. IMPRESSION: Interval worsening of bilateral pulmonary opacities, which are favored to represent edema/atelectasis , given the provided history. Continued radiographic follow-up to resolution is recommended. Signer Name: Alfonzo Polanco MD Signed: 12/13/2020 6:04 PM Workstation Name: [id number]
[2020-12-13] MEDS: GLYCOPYRROLATE 2 MG TAB PO SCH (20:27)
[2020-12-13] MEDS: MONTELUKAST 10 MG TAB PO SCH (21:21)
[2020-12-13] MEDS: FONDAPARINUX 2.5 MG/0.5 ML INJ SUB-Q SCH (21:21)
[2020-12-14] MEDS: fentaNYL DRIP Premix 2,000 MCG/100 ML BAG IV SCH (02:45)
[2020-12-14] MEDS: QUEtiapine 100 MG TAB PO SCH ×3 (06:39→22:32)
[2020-12-14] MEDS: PIPERACIL/TAZOBACTA 4.5/NS 100 4.5 GM/100 ML VIAL IV SCH ×3 (06:50→20:46)
[2020-12-14] MEDS: IPRATROPIUM/ALBUTEROL SULFATE 3 ML AMPUL.NEB IH SCH ×2 (08:31→21:11)
[2020-12-14] MEDS: GABAPENTIN 500 MG/10 ML ORAL LIQD PO SCH ×2 (10:24→22:31)
[2020-12-14] MEDS: GLYCOPYRROLATE 2 MG TAB PO SCH ×3 (10:25→22:32)
[2020-12-14] MEDS: SENNOSIDES/DOCUSATE SODIUM 8.6/50 MG TAB FEEDTUBE SCH ×2 (10:29→22:32)
[2020-12-14] MEDS: FAMOTIDINE 20 MG/2 ML INJ IV SCH ×2 (10:29→23:58)
[2020-12-14] MEDS: ASCORBIC ACID 500 MG TAB PO SCH ×2 (10:29→22:32)
[2020-12-14] MEDS: hydroCHLOROthiazide 12.5 MG CAP PO SCH (10:29)
[2020-12-14] MEDS: ZINC SULFATE 220 MG CAP PO SCH (10:30)
--- NOTE | 2020-12-14 12:41 | Progress Note ---
Assessment and Plan Cultures: Today 11/29/2020 usual respiratory malik Blood culture 12/04/2020 no growth Urine culture 12/04/2020 E. coli Blood culture 12/11/2020 no growth today Urine culture 12/11/2020 no growth Sputum culture 12/11/2020 usual respiratory malik MRSA PCR negative A/P: 40-year-old female past medical history of severe allergic reactions, morbid obesity, hypertension admitted with COVID-19 and respiratory failure #Sepsis: Remains with low-grade fever. Likely due to COVID/UTI #Critical COVID-19: has been positive for >3 weeks. No therapy indicated at this time. #Bilateral pneumonia: Possible secondary infection, recent development with new leukocytosis and fevers. #Acute sepsis: Present leukocytosis and fevers. Possibly secondary to pneumonia. #Acute hypoxic respiratory failure: Self extubated #Severe allergic history Recs: -Stop vancomycin IV for now D4 -Continue zosyn D3 of 5 -Completed Cefepime for 7 days -Monitor renal function Guarded prognosis Jody Larios MD [facility] ([facility]) Office [phone] Subjective Date of service: 12/14/20 Principal diagnosis: Acute Hypoxemic Respiratory Failure; Angioedema;Obesity; leukocytosis Interval history: Patient self extubated today. No fever. Feels better. Objective - Exam Narrative Exam: General appearance: Alert in NAD pleasant Eyes: anicteric sclerae, moist conjunctivae; no lid-lag; PERRLA HENT: Normocephalic, Atraumatic; normal external ears, nares open, oropharynx clear Neck: supple, tracheal midline, no JVD Lungs: Bilateral rhonchi CV: RRR no murmur Abdomen: Soft, non-tender; no masses or hepatosplenomegaly Extremities: no edema, no cyanosis Skin: No rash. Psych: no agitated Neuro: alert and oriented x 3. Moving all extermities - Constitutional Vitals: Vital Signs Temp Pulse Resp BP Pulse Ox 98.6 F 79 18 169/82 98 12/14/20 12:00 12/14/20 11:30 12/14/20 11:30 12/14/20 11:30 12/14/20 11:30 Temperature -Last 24 Hours Temperature 98.6 F Temperature 100.0 F Temperature 98.6 F Temperature 99.2 F Temperature 99.3 F Temperature 98.6 F - Labs CBC & Chem 7: 12/13/20 04:52 12/13/20 04:52 Labs: Abnormal lab results 12/13/20 12/14/20 12/14/20 Range/Units 17:36 00:14 06:11 ABG pH (7.320-7.450) POC ABG pO2 (83-108) mmHg ABG Hemoglobin (12.0-17.5) ABG Oxyhemoglobin (94-98) ABG Glucose (65-95) mg/dL Carboxyhemoglobin (0.5-1.5) POC Glucose 139 H 145 H 144 H (70-105) mg/dL Arterial Blood Glucose (65-95) mg/dL 12/14/20 12/14/20 Range/Units 08:30 11:43 ABG pH 7.494 H (7.320-7.450) POC ABG pO2 168.3 H (83-108) mmHg ABG Hemoglobin 10.6 L (12.0-17.5) ABG Oxyhemoglobin 98.8 H (94-98) ABG Glucose 136 H (65-95) mg/dL Carboxyhemoglobin 0.3 L (0.5-1.5) POC Glucose 146 H (70-105) mg/dL Arterial Blood Glucose 136 H (65-95) mg/dL
--- NOTE | 2020-12-14 12:42 | Progress Note ---
Assessment and Plan Acute hypoxemic respiratory failure Angioedema Morbid obesity Mild leukocytosis Hypertension. H/O alpha-gal syndrome (care plan and progress discussed with her Manoj including the fact that we are still awaiting a bed at [facility]) - watch closely post self extubation - BIPAP prn / qhs if tolerates - anti-infective's per ID recommendations - continue to wean supplemental oxygen for target O2 sat's > 92% acutely - continue care as below otherwise; - VAP bundle addressed - continue lung protective strategies - continue bronchodilators with pulmonary hygiene per RT - wean per pulmonary driven protocols otherwise - continue accuchecks with glycemic control per SSI (While critically ill target blood glucose of 140-180 mg/dL; avoid hypoglycemia) - sedation prn for target RASS -1 to -2 - avoid nephrotoxins, renally dose all medications - continue to avoid benzodiazepine's, reduce the possibility of delirium - AB's per ID rec's - prn analgesia per CPOT score - Maintenance of sleep-wake cycle, avoid delirium - continue enteral nutritional support at goal rate as tolerated - G.I. & VTE prophylaxis - PT/OT/ROM exercises - continue mobility protocols for pressure ulcer prophylaxis - Monitor hemodynamics closely - continue other care per attending / other consultants - discharge planning ongoing concurrently COVID SPECIFIC INTERVENTIONS - Continue contact and airborne isolation - Remdesivir as per ID/Pulmonary developed protocols (not indicated re: duration of illness) - continue systemic steroids for severe COVID-19 infection empirically (no steroids re: COVID recovery status and h/o allergy to Solumedrol) - follow repeat COVID tests results - zinc and vitamin C supplementation - Monitor inflammatory markers per facility protocol - ferritin, Ddimer, CRP - therapeutic anticoagulation per system Protocol based on d-dimer and clinical considerations (VTE prophylaxis) .... Re-evaluate in am & prn CONDITION: CRITICAL PROGNOSIS: GUARDED CODE STATUS: FULL CODE The high probability of a clinically significant, sudden or life-threatening deterioration of the [respiratory, cardiovascular & immunologic] system(s) required my full and direct attention, intervention and personal management. The aggregate critical care time was [32] minutes without overlap. Time includes spent on; [x] Data Review and interpretation [x] Patient assessment and monitoring of vital signs [x] Documentation [x] Medication orders and management Subjective Date of service: 12/14/20 Principal diagnosis: Acute Hypoxemic Respiratory Failure; Angioedema;Obesity; leukocytosis Interval history: Patient is seen today for: Acute hypoxemic respiratory failure; Angioedema; Morbid obesity; leukocytosis; HTN; H/O alpha-gal syndrome Seen and examined at bedside; 24hour events reviewed; nursing and respiratory care staff consulted; no adverse overnight events reported to me; resting in bed; remains on MVS; self extubated after SBT today but doing well so far; CXR yesterday consistent with acute pulmonary edema; great diuresis with lasix; Objective Vital Signs - 12hr 12/14/20 12/14/20 12/14/20 01:00 01:30 02:00 Temperature Pulse Rate 84 90 66 Pulse Rate [ Anterior Bilateral Throughout] Respiratory 15 18 15 Rate Respiratory Rate [Anterior Bilateral Throughout] Blood Pressure 128/84 128/84 140/115 O2 Sat by Pulse 99 100 98 Oximetry 12/14/20 12/14/20 12/14/20 02:30 03:00 03:30 Temperature Pulse Rate 97 H 83 79 Pulse Rate [ Anterior Bilateral Throughout] Respiratory 15 17 16 Rate Respiratory Rate [Anterior Bilateral Throughout] Blood Pressure 140/115 125/54 125/53 O2 Sat by Pulse 100 100 Oximetry 12/14/20 12/14/20 12/14/20 04:00 04:03 04:30 Temperature Pulse Rate 66 63 66 Pulse Rate [ Anterior Bilateral Throughout] Respiratory 12 16 Rate Respiratory Rate [Anterior Bilateral Throughout] Blood Pressure 102/54 102/54 102/54 O2 Sat by Pulse 96 100 98 Oximetry 12/14/20 12/14/20 12/14/20 05:00 05:30 06:00 Temperature Pulse Rate 67 63 65 Pulse Rate [ Anterior Bilateral Throughout] Respiratory 13 14 15 Rate Respiratory Rate [Anterior Bilateral Throughout] Blood Pressure 104/53 104/53 104/53 O2 Sat by Pulse 99 99 100 Oximetry 12/14/20 12/14/20 12/14/20 06:21 06:30 07:00 Temperature Pulse Rate 64 65 75 Pulse Rate [ Anterior Bilateral Throughout] Respiratory 10 L 11 L Rate Respiratory Rate [Anterior Bilateral Throughout] Blood Pressure 110/43 110/43 120/55 O2 Sat by Pulse 100 100 100 Oximetry 12/14/20 12/14/20 12/14/20 07:30 08:00 08:26 Temperature 98.6 F Pulse Rate 100 H 94 H 89 Pulse Rate [ Anterior Bilateral Throughout] Respiratory 13 10 L 10 L Rate Respiratory Rate [Anterior Bilateral Throughout] Blood Pressure 120/55 120/55 162/80 O2 Sat by Pulse 100 100 100 Oximetry 12/14/20 12/14/20 12/14/20 08:30 08:45 09:00 Temperature Pulse Rate 84 116 H Pulse Rate [ 89 Anterior Bilateral Throughout] Respiratory 13 30 H Rate Respiratory 19 Rate [Anterior Bilateral Throughout] Blood Pressure 162/80 167/96 O2 Sat by Pulse 100 100 Oximetry 12/14/20 12/14/20 12/14/20 09:30 09:58 10:00 Temperature Pulse Rate 91 H 87 87 Pulse Rate [ Anterior Bilateral Throughout] Respiratory 11 L 23 Rate Respiratory Rate [Anterior Bilateral Throughout] Blood Pressure 167/96 147/68 167/96 O2 Sat by Pulse 100 100 99 Oximetry 12/14/20 12/14/20 12/14/20 10:13 10:30 10:31 Temperature Pulse Rate 91 H Pulse Rate [ Anterior Bilateral Throughout] Respiratory 22 Rate Respiratory Rate [Anterior Bilateral Throughout] Blood Pressure 147/68 O2 Sat by Pulse 98 97 97 Oximetry 12/14/20 12/14/20 12/14/20 11:00 11:30 11:51 Temperature 100.0 F H Pulse Rate 81 79 Pulse Rate [ Anterior Bilateral Throughout] Respiratory 16 18 Rate Respiratory Rate [Anterior Bilateral Throughout] Blood Pressure 147/68 169/82 O2 Sat by Pulse 100 98 Oximetry 12/14/20 12:00 Temperature 98.6 F Pulse Rate Pulse Rate [ Anterior Bilateral Throughout] Respiratory Rate Respiratory Rate [Anterior Bilateral Throughout] Blood Pressure O2 Sat by Pulse Oximetry Constitutional: no acute distress (sedated), other (young obese female without increased respiratory effort at rest on MVS) Eyes: non-icteric ENT: oropharynx moist, other (extubated) Neck: supple, no lymphadenopathy, no JVD, other (large circumference; + healed trach scar) Effort: mildly labored Ascultation: Bilateral: clear, diminished breath sounds Percussion: Bilateral: not dull Cardiovascular: regular rate and rhythm, other (S1,S2) Gastrointestinal: normoactive bowel sounds, soft, non-tender, non-distended Integumentary: normal Extremities: no cyanosis, no edema, pink and warm, pulses normal Neurologic: non-focal exam, pupils equal and round, CN II-XII normal, motor strength normal and Psychiatric: mood appropriate, affect normal, other (sedated but rousable) CBC and BMP: 12/13/20 04:52 12/14/20 Unknown ABG, PT/INR, D-dimer: ABG ABG pH 7.494 (7.320-7.450) H 12/14/20 08:30 POC ABG pCO2 36.7 mmHg (32.0-48.0) 12/14/20 08:30 POC ABG pO2 168.3 mmHg (83-108) H 12/14/20 08:30 POC ABG HCO3 27.6 12/14/20 08:30 ABG O2 Saturation 99.4 (0-100) 12/14/20 08:30 PT/INR, D-dimer PT 13.9 Sec. (12.2-14.9) 12/07/20 04:00 INR 1.02 (0.87-1.13) 12/07/20 04:00 D-Dimer 1838.21 ng/mlDDU (0-234) H 12/04/20 10:41 Abnormal lab findings: Abnormal Labs 11/29/20 11/29/20 11/29/20 07:48 07:48 07:48 WBC 11.3 H RBC Hgb Hct RDW 18.0 H Lymph % (Auto) [place] # (Auto) Seg Neutrophils % Seg Neuts % (Manual) Lymphocytes % (Manual) Seg Neutrophils # 7.9 H Seg Neutrophils # Man Lymphocytes # (Manual) Monocytes # (Manual) Basophils # (Manual) D-Dimer ABG pH POC ABG pCO2 POC ABG pO2 ABG Hemoglobin ABG Oxyhemoglobin ABG Sodium ABG Potassium ABG Chloride ABG Glucose Carboxyhemoglobin Sodium 135 L Chloride Carbon Dioxide BUN Creatinine Glucose 204 H POC Glucose Calcium Ferritin Lactate Dehydrogenase Total Creatine Kinase CK-MB (CK-2) C-Reactive Protein Total Protein Albumin 3.7 L Arterial Blood Glucose Urine WBC (Auto) Vancomycin Trough Coronavirus (PCR) 11/29/20 11/30/20 11/30/20 11:37 04:27 11:22 WBC RBC Hgb Hct RDW Lymph % (Auto) [place] # (Auto) Seg Neutrophils % Seg Neuts % (Manual) Lymphocytes % (Manual) Seg Neutrophils # Seg Neutrophils # Man Lymphocytes # (Manual) Monocytes # (Manual) Basophils # (Manual) D-Dimer ABG pH 7.318 L POC ABG pCO2 POC ABG pO2 76.1 L 196.4 H ABG Hemoglobin 11.96 L ABG Oxyhemoglobin 92.4 L 98.5 H ABG Sodium 133.7 L ABG Potassium 5.0 H ABG Chloride ABG Glucose 171 H Carboxyhemoglobin 2.5 H Sodium Chloride Carbon Dioxide BUN Creatinine Glucose POC Glucose 157 H Calcium Ferritin Lactate Dehydrogenase Total Creatine Kinase CK-MB (CK-2) C-Reactive Protein Total Protein Albumin Arterial Blood Glucose 171 H Urine WBC (Auto) Vancomycin Trough Coronavirus (PCR) 11/30/20 11/30/20 11/30/20 14:12 17:19 23:42 WBC RBC Hgb Hct RDW Lymph % (Auto) [place] # (Auto) Seg Neutrophils % Seg Neuts % (Manual) Lymphocytes % (Manual) Seg Neutrophils # Seg Neutrophils # Man Lymphocytes # (Manual) Monocytes # (Manual) Basophils # (Manual) D-Dimer ABG pH POC ABG pCO2 POC ABG pO2 ABG Hemoglobin ABG Oxyhemoglobin ABG Sodium ABG Potassium ABG Chloride ABG Glucose Carboxyhemoglobin Sodium Chloride Carbon Dioxide BUN Creatinine Glucose POC Glucose 135 H 121 H Calcium Ferritin Lactate Dehydrogenase Total Creatine Kinase 1132 H CK-MB (CK-2) 14.6 H C-Reactive Protein Total Protein Albumin Arterial Blood Glucose Urine WBC (Auto) Vancomycin Trough Coronavirus (PCR) 12/01/20 12/01/20 12/01/20 03:30 04:21 06:16 WBC RBC Hgb Hct RDW Lymph % (Auto) [place] # (Auto) Seg Neutrophils % Seg Neuts % (Manual) Lymphocytes % (Manual) Seg Neutrophils # Seg Neutrophils # Man Lymphocytes # (Manual) Monocytes # (Manual) Basophils # (Manual) D-Dimer ABG pH POC ABG pCO2 POC ABG pO2 37.6 L 76.2 L ABG Hemoglobin 10.4 L 10.8 L ABG Oxyhemoglobin 76.4 L 93.7 L ABG Sodium 112.8 L 110.9 L ABG Potassium ABG Chloride ABG Glucose 103 H 107 H Carboxyhemoglobin Sodium Chloride Carbon Dioxide BUN Creatinine Glucose POC Glucose 129 H Calcium Ferritin Lactate Dehydrogenase Total Creatine Kinase CK-MB (CK-2) C-Reactive Protein Total Protein Albumin Arterial Blood Glucose 103 H 107 H Urine WBC (Auto) Vancomycin Trough Coronavirus (PCR) 09/06/1912/02/20 12/02/20 04:00 12:02 17:10 WBC RBC Hgb Hct RDW Lymph % (Auto) [place] # (Auto) Seg Neutrophils % Seg Neuts % (Manual) Lymphocytes % (Manual) Seg Neutrophils # Seg Neutrophils # Man Lymphocytes # (Manual) Monocytes # (Manual) Basophils # (Manual) D-Dimer ABG pH 7.306 L POC ABG pCO2 58.0 H POC ABG pO2 58.5 L ABG Hemoglobin 11.4 L ABG Oxyhemoglobin 86.9 L ABG Sodium 124.7 L ABG Potassium ABG Chloride ABG Glucose 118 H Carboxyhemoglobin Sodium Chloride Carbon Dioxide BUN Creatinine Glucose POC Glucose 143 H 134 H Calcium Ferritin Lactate Dehydrogenase Total Creatine Kinase CK-MB (CK-2) C-Reactive Protein Total Protein Albumin Arterial Blood Glucose 118 H Urine WBC (Auto) Vancomycin Trough Coronavirus (PCR) 12/03/20 12/03/20 12/04/20 05:10 08:00 03:32 WBC RBC Hgb Hct RDW Lymph % (Auto) [place] # (Auto) Seg Neutrophils % Seg Neuts % (Manual) Lymphocytes % (Manual) Seg Neutrophils # Seg Neutrophils # Man Lymphocytes # (Manual) Monocytes # (Manual) Basophils # (Manual) D-Dimer ABG pH 7.272 L POC ABG pCO2 60.1 H 54.6 H POC ABG pO2 82.8 L 78.6 L ABG Hemoglobin 11.4 L ABG Oxyhemoglobin ABG Sodium 132.2 L 130.2 L ABG Potassium ABG Chloride ABG Glucose 166 H 164 H Carboxyhemoglobin 0.4 L Sodium Chloride Carbon Dioxide BUN Creatinine Glucose POC Glucose Calcium Ferritin Lactate Dehydrogenase Total Creatine Kinase CK-MB (CK-2) C-Reactive Protein Total Protein Albumin Arterial Blood Glucose 166 H 164 H Urine WBC (Auto) Vancomycin Trough Coronavirus (PCR) Positive A 12/04/20 12/04/20 12/04/20 05:40 05:40 07:30 WBC 21.7 H RBC Hgb Hct RDW 18.2 H Lymph % (Auto) [place] # (Auto) Seg Neutrophils % Seg Neuts % (Manual) 74.0 H Lymphocytes % (Manual) 2.0 L Seg Neutrophils # Seg Neutrophils # Man 16.1 H Lymphocytes # (Manual) 0.4 L Monocytes # (Manual) 1.1 H Basophils # (Manual) 0.2 H D-Dimer ABG pH POC ABG pCO2 POC ABG pO2 ABG Hemoglobin ABG Oxyhemoglobin ABG Sodium ABG Potassium ABG Chloride ABG Glucose Carboxyhemoglobin Sodium Chloride Carbon Dioxide BUN 26 H Creatinine 1.7 H D Glucose 157 H POC Glucose Calcium Ferritin Lactate Dehydrogenase Total Creatine Kinase CK-MB (CK-2) C-Reactive Protein Total Protein 6.2 L Albumin 2.6 L Arterial Blood Glucose Urine WBC (Auto) > 182.0 H Vancomycin Trough Coronavirus (PCR) 12/04/20 12/04/20 12/04/20 10:41 10:41 10:41 WBC RBC Hgb Hct RDW Lymph % (Auto) [place] # (Auto) Seg Neutrophils % Seg Neuts % (Manual) Lymphocytes % (Manual) Seg Neutrophils # Seg Neutrophils # Man Lymphocytes # (Manual) Monocytes # (Manual) Basophils # (Manual) D-Dimer 1838.21 H ABG pH POC ABG pCO2 POC ABG pO2 ABG Hemoglobin ABG Oxyhemoglobin ABG Sodium ABG Potassium ABG Chloride ABG Glucose Carboxyhemoglobin Sodium Chloride Carbon Dioxide BUN Creatinine Glucose POC Glucose Calcium Ferritin 399.0 H Lactate Dehydrogenase 386 H Total Creatine Kinase CK-MB (CK-2) C-Reactive Protein 34.30 H Total Protein Albumin Arterial Blood Glucose Urine WBC (Auto) Vancomycin Trough Coronavirus (PCR) 12/04/20 12/05/20 12/05/20 23:58 00:10 00:45 WBC RBC Hgb Hct RDW Lymph % (Auto) [place] # (Auto) Seg Neutrophils % Seg Neuts % (Manual) Lymphocytes % (Manual) Seg Neutrophils # Seg Neutrophils # Man Lymphocytes # (Manual) Monocytes # (Manual) Basophils # (Manual) D-Dimer ABG pH POC ABG pCO2 55.5 H POC ABG pO2 ABG Hemoglobin 11.2 L ABG Oxyhemoglobin ABG Sodium 135.0 L ABG Potassium 4.6 H ABG Chloride ABG Glucose 165 H Carboxyhemoglobin Sodium Chloride Carbon Dioxide BUN Creatinine Glucose POC Glucose 134 H 146 H Calcium Ferritin Lactate Dehydrogenase Total Creatine Kinase CK-MB (CK-2) C-Reactive Protein Total Protein Albumin Arterial Blood Glucose 165 H Urine WBC (Auto) Vancomycin Trough Coronavirus (PCR) 12/05/20 12/05/20 12/05/20 11:04 11:04 11:52 WBC 13.0 H RBC 3.61 L Hgb Hct RDW 18.8 H Lymph % (Auto) 13.1 L [place] # (Auto) 0.9 H Seg Neutrophils % 77.6 H Seg Neuts % (Manual) Lymphocytes % (Manual) Seg Neutrophils # 10.0 H Seg Neutrophils # Man Lymphocytes # (Manual) Monocytes # (Manual) Basophils # (Manual) D-Dimer ABG pH POC ABG pCO2 POC ABG pO2 ABG Hemoglobin ABG Oxyhemoglobin ABG Sodium ABG Potassium ABG Chloride ABG Glucose Carboxyhemoglobin Sodium Chloride Carbon Dioxide 31 H BUN 21 H Creatinine Glucose 152 H POC Glucose 121 H Calcium Ferritin Lactate Dehydrogenase Total Creatine Kinase CK-MB (CK-2) C-Reactive Protein Total Protein Albumin Arterial Blood Glucose Urine WBC (Auto) Vancomycin Trough Coronavirus (PCR) 12/05/20 12/05/20 12/06/20 17:31 23:37 04:00 WBC RBC Hgb Hct RDW Lymph % (Auto) [place] # (Auto) Seg Neutrophils % Seg Neuts % (Manual) Lymphocytes % (Manual) Seg Neutrophils # Seg Neutrophils # Man Lymphocytes # (Manual) Monocytes # (Manual) Basophils # (Manual) D-Dimer ABG pH 7.471 H POC ABG pCO2 POC ABG pO2 75.2 L ABG Hemoglobin 10.4 L ABG Oxyhemoglobin ABG Sodium 133.7 L ABG Potassium ABG Chloride ABG Glucose 120 H Carboxyhemoglobin Sodium Chloride Carbon Dioxide BUN Creatinine Glucose POC Glucose 148 H 133 H Calcium Ferritin Lactate Dehydrogenase Total Creatine Kinase CK-MB (CK-2) C-Reactive Protein Total Protein Albumin Arterial Blood Glucose 120 H Urine WBC (Auto) Vancomycin Trough Coronavirus (PCR) 12/06/20 12/06/20 12/06/20 05:07 05:07 05:09 WBC RBC 3.37 L Hgb 9.4 L Hct 28.4 L RDW 18.3 H Lymph % (Auto) [place] # (Auto) Seg Neutrophils % Seg Neuts % (Manual) Lymphocytes % (Manual) Seg Neutrophils # Seg Neutrophils # Man Lymphocytes # (Manual) Monocytes # (Manual) Basophils # (Manual) D-Dimer ABG pH POC ABG pCO2 POC ABG pO2 ABG Hemoglobin ABG Oxyhemoglobin ABG Sodium ABG Potassium ABG Chloride ABG Glucose Carboxyhemoglobin Sodium Chloride Carbon Dioxide 33 H BUN 25 H Creatinine Glucose 131 H POC Glucose 122 H Calcium Ferritin Lactate Dehydrogenase Total Creatine Kinase CK-MB (CK-2) C-Reactive Protein Total Protein Albumin Arterial Blood Glucose Urine WBC (Auto) Vancomycin Trough Coronavirus (PCR) 12/06/20 12/06/20 12/06/20 11:59 16:17 17:30 WBC RBC Hgb Hct RDW Lymph % (Auto) [place] # (Auto) Seg Neutrophils % Seg Neuts % (Manual) Lymphocytes % (Manual) Seg Neutrophils # Seg Neutrophils # Man Lymphocytes # (Manual) Monocytes # (Manual) Basophils # (Manual) D-Dimer ABG pH POC ABG pCO2 61.8 H POC ABG pO2 180.5 H ABG Hemoglobin ABG Oxyhemoglobin ABG Sodium ABG Potassium ABG Chloride ABG Glucose 142 H Carboxyhemoglobin Sodium Chloride Carbon Dioxide BUN Creatinine Glucose POC Glucose 120 H 114 H Calcium Ferritin Lactate Dehydrogenase Total Creatine Kinase CK-MB (CK-2) C-Reactive Protein Total Protein Albumin Arterial Blood Glucose 142 H Urine WBC (Auto) Vancomycin Trough Coronavirus (PCR) 12/06/20 12/07/20 12/07/20 23:09 04:00 04:00 WBC RBC 3.47 L Hgb 9.5 L Hct 29.5 L RDW 18.7 H Lymph % (Auto) [place] # (Auto) Seg Neutrophils % Seg Neuts % (Manual) Lymphocytes % (Manual) Seg Neutrophils # Seg Neutrophils # Man Lymphocytes # (Manual) Monocytes # (Manual) Basophils # (Manual) D-Dimer ABG pH POC ABG pCO2 55.9 H POC ABG pO2 ABG Hemoglobin 11.6 L ABG Oxyhemoglobin ABG Sodium 135.2 L ABG Potassium 4.7 H ABG Chloride ABG Glucose 141 H Carboxyhemoglobin Sodium Chloride Carbon Dioxide BUN Creatinine Glucose POC Glucose 112 H Calcium Ferritin Lactate Dehydrogenase Total Creatine Kinase CK-MB (CK-2) C-Reactive Protein Total Protein Albumin Arterial Blood Glucose 141 H Urine WBC (Auto) Vancomycin Trough Coronavirus (PCR) 12/07/20 12/07/20 12/07/20 05:00 05:28 12:20 WBC RBC Hgb Hct RDW Lymph % (Auto) [place] # (Auto) Seg Neutrophils % Seg Neuts % (Manual) Lymphocytes % (Manual) Seg Neutrophils # Seg Neutrophils # Man Lymphocytes # (Manual) Monocytes # (Manual) Basophils # (Manual) D-Dimer ABG pH POC ABG pCO2 POC ABG pO2 ABG Hemoglobin ABG Oxyhemoglobin ABG Sodium ABG Potassium ABG Chloride ABG Glucose Carboxyhemoglobin Sodium Chloride 96.6 L Carbon Dioxide 35 H BUN 29 H Creatinine Glucose 148 H POC Glucose 139 H 130 H Calcium Ferritin Lactate Dehydrogenase Total Creatine Kinase CK-MB (CK-2) C-Reactive Protein Total Protein Albumin Arterial Blood Glucose Urine WBC (Auto) Vancomycin Trough Coronavirus (PCR) 12/07/20 12/07/20 12/08/20 16:54 23:15 04:00 WBC RBC Hgb Hct RDW Lymph % (Auto) [place] # (Auto) Seg Neutrophils % Seg Neuts % (Manual) Lymphocytes % (Manual) Seg Neutrophils # Seg Neutrophils # Man Lymphocytes # (Manual) Monocytes # (Manual) Basophils # (Manual) D-Dimer ABG pH POC ABG pCO2 53.4 H POC ABG pO2 ABG Hemoglobin 11.4 L ABG Oxyhemoglobin ABG Sodium ABG Potassium ABG Chloride 96.0 L ABG Glucose 149 H Carboxyhemoglobin Sodium Chloride Carbon Dioxide BUN Creatinine Glucose POC Glucose 121 H 166 H Calcium Ferritin Lactate Dehydrogenase Total Creatine Kinase CK-MB (CK-2) C-Reactive Protein Total Protein Albumin Arterial Blood Glucose 149 H Urine WBC (Auto) Vancomycin Trough Coronavirus (PCR) 12/08/20 12/08/20 12/08/20 05:29 08:33 08:33 WBC 11.2 H RBC 3.64 L Hgb Hct 30.2 L RDW 18.1 H Lymph % (Auto) [place] # (Auto) Seg Neutrophils % Seg Neuts % (Manual) Lymphocytes % (Manual) Seg Neutrophils # Seg Neutrophils # Man Lymphocytes # (Manual) Monocytes # (Manual) Basophils # (Manual) D-Dimer ABG pH POC ABG pCO2 POC ABG pO2 ABG Hemoglobin ABG Oxyhemoglobin ABG Sodium ABG Potassium ABG Chloride ABG Glucose Carboxyhemoglobin Sodium Chloride 96.2 L Carbon Dioxide 33 H BUN 31 H Creatinine Glucose 166 H POC Glucose 128 H Calcium 10.3 H Ferritin Lactate Dehydrogenase Total Creatine Kinase CK-MB (CK-2) C-Reactive Protein Total Protein Albumin Arterial Blood Glucose Urine WBC (Auto) Vancomycin Trough Coronavirus (PCR) 12/08/20 12/08/20 12/09/20 11:53 16:46 00:20 WBC RBC Hgb Hct RDW Lymph % (Auto) [place] # (Auto) Seg Neutrophils % Seg Neuts % (Manual) Lymphocytes % (Manual) Seg Neutrophils # Seg Neutrophils # Man Lymphocytes # (Manual) Monocytes # (Manual) Basophils # (Manual) D-Dimer ABG pH POC ABG pCO2 POC ABG pO2 ABG Hemoglobin ABG Oxyhemoglobin ABG Sodium ABG Potassium ABG Chloride ABG Glucose Carboxyhemoglobin Sodium Chloride Carbon Dioxide BUN Creatinine Glucose POC Glucose 170 H 157 H 164 H Calcium Ferritin Lactate Dehydrogenase Total Creatine Kinase CK-MB (CK-2) C-Reactive Protein Total Protein Albumin Arterial Blood Glucose Urine WBC (Auto) Vancomycin Trough Coronavirus (PCR) 12/09/20 12/09/20 12/09/20 04:00 05:07 05:07 WBC 11.4 H RBC 3.53 L Hgb 9.8 L Hct 29.2 L RDW 17.8 H Lymph % (Auto) [place] # (Auto) Seg Neutrophils % Seg Neuts % (Manual) Lymphocytes % (Manual) Seg Neutrophils # Seg Neutrophils # Man Lymphocytes # (Manual) Monocytes # (Manual) Basophils # (Manual) D-Dimer ABG pH POC ABG pCO2 54.4 H POC ABG pO2 ABG Hemoglobin 10.5 L ABG Oxyhemoglobin ABG Sodium ABG Potassium ABG Chloride ABG Glucose 204 H Carboxyhemoglobin Sodium Chloride Carbon Dioxide 33 H BUN 38 H Creatinine Glucose 189 H POC Glucose Calcium Ferritin Lactate Dehydrogenase Total Creatine Kinase CK-MB (CK-2) C-Reactive Protein Total Protein Albumin Arterial Blood Glucose 204 H Urine WBC (Auto) Vancomycin Trough Coronavirus (PCR) 12/09/20 12/09/20 12/09/20 05:30 11:57 17:33 WBC RBC Hgb Hct RDW Lymph % (Auto) [place] # (Auto) Seg Neutrophils % Seg Neuts % (Manual) Lymphocytes % (Manual) Seg Neutrophils # Seg Neutrophils # Man Lymphocytes # (Manual) Monocytes # (Manual) Basophils # (Manual) D-Dimer ABG pH POC ABG pCO2 POC ABG pO2 ABG Hemoglobin ABG Oxyhemoglobin ABG Sodium ABG Potassium ABG Chloride ABG Glucose Carboxyhemoglobin Sodium Chloride Carbon Dioxide BUN Creatinine Glucose POC Glucose 190 H 153 H 180 H Calcium Ferritin Lactate Dehydrogenase Total Creatine Kinase CK-MB (CK-2) C-Reactive Protein Total Protein Albumin Arterial Blood Glucose Urine WBC (Auto) Vancomycin Trough Coronavirus (PCR) 12/10/20 12/10/20 12/10/20 00:28 03:16 05:03 WBC 11.5 H RBC 3.42 L Hgb 9.4 L Hct 29.3 L RDW 17.9 H Lymph % (Auto) [place] # (Auto) Seg Neutrophils % Seg Neuts % (Manual) Lymphocytes % (Manual) Seg Neutrophils # Seg Neutrophils # Man Lymphocytes # (Manual) Monocytes # (Manual) Basophils # (Manual) D-Dimer ABG pH 7.493 H POC ABG pCO2 POC ABG pO2 71.4 L ABG Hemoglobin 9.9 L ABG Oxyhemoglobin ABG Sodium ABG Potassium ABG Chloride ABG Glucose 181 H Carboxyhemoglobin 0.4 L Sodium Chloride Carbon Dioxide BUN Creatinine Glucose POC Glucose 173 H Calcium Ferritin Lactate Dehydrogenase Total Creatine Kinase CK-MB (CK-2) C-Reactive Protein Total Protein Albumin Arterial Blood Glucose 181 H Urine WBC (Auto) Vancomycin Trough Coronavirus (PCR) 12/10/20 12/10/20 12/10/20 05:03 05:48 11:41 WBC RBC Hgb Hct RDW Lymph % (Auto) [place] # (Auto) Seg Neutrophils % Seg Neuts % (Manual) Lymphocytes % (Manual) Seg Neutrophils # Seg Neutrophils # Man Lymphocytes # (Manual) Monocytes # (Manual) Basophils # (Manual) D-Dimer ABG pH POC ABG pCO2 POC ABG pO2 ABG Hemoglobin ABG Oxyhemoglobin ABG Sodium ABG Potassium ABG Chloride ABG Glucose Carboxyhemoglobin Sodium Chloride Carbon Dioxide BUN 34 H Creatinine Glucose 174 H POC Glucose 176 H 203 H Calcium Ferritin Lactate Dehydrogenase Total Creatine Kinase CK-MB (CK-2) C-Reactive Protein Total Protein Albumin Arterial Blood Glucose Urine WBC (Auto) Vancomycin Trough Coronavirus (PCR) 12/10/20 12/10/20 12/11/20 16:32 23:27 04:00 WBC RBC Hgb Hct RDW Lymph % (Auto) [place] # (Auto) Seg Neutrophils % Seg Neuts % (Manual) Lymphocytes % (Manual) Seg Neutrophils # Seg Neutrophils # Man Lymphocytes # (Manual) Monocytes # (Manual) Basophils # (Manual) D-Dimer ABG pH 7.517 H POC ABG pCO2 POC ABG pO2 ABG Hemoglobin 10.0 L ABG Oxyhemoglobin ABG Sodium ABG Potassium ABG Chloride ABG Glucose 175 H Carboxyhemoglobin 0.3 L Sodium Chloride Carbon Dioxide BUN Creatinine Glucose POC Glucose 148 H 186 H Calcium Ferritin Lactate Dehydrogenase Total Creatine Kinase CK-MB (CK-2) C-Reactive Protein Total Protein Albumin Arterial Blood Glucose 175 H Urine WBC (Auto) Vancomycin Trough Coronavirus (PCR) 12/11/20 12/11/20 12/11/20 05:18 06:05 06:05 WBC RBC 3.19 L Hgb 9.0 L Hct 27.1 L RDW 18.0 H Lymph % (Auto) [place] # (Auto) Seg Neutrophils % Seg Neuts % (Manual) Lymphocytes % (Manual) Seg Neutrophils # Seg Neutrophils # Man Lymphocytes # (Manual) Monocytes # (Manual) Basophils # (Manual) D-Dimer ABG pH POC ABG pCO2 POC ABG pO2 ABG Hemoglobin ABG Oxyhemoglobin ABG Sodium ABG Potassium ABG Chloride ABG Glucose Carboxyhemoglobin Sodium Chloride Carbon Dioxide BUN 33 H Creatinine Glucose 158 H POC Glucose 151 H Calcium Ferritin Lactate Dehydrogenase Total Creatine Kinase CK-MB (CK-2) C-Reactive Protein Total Protein Albumin Arterial Blood Glucose Urine WBC (Auto) Vancomycin Trough Coronavirus (PCR) 12/11/20 12/11/20 12/11/20 12:17 18:07 23:30 WBC RBC Hgb Hct RDW Lymph % (Auto) [place] # (Auto) Seg Neutrophils % Seg Neuts % (Manual) Lymphocytes % (Manual) Seg Neutrophils # Seg Neutrophils # Man Lymphocytes # (Manual) Monocytes # (Manual) Basophils # (Manual) D-Dimer ABG pH POC ABG pCO2 POC ABG pO2 ABG Hemoglobin ABG Oxyhemoglobin ABG Sodium ABG Potassium ABG Chloride ABG Glucose Carboxyhemoglobin Sodium Chloride Carbon Dioxide BUN Creatinine Glucose POC Glucose 163 H 152 H 144 H Calcium Ferritin Lactate Dehydrogenase Total Creatine Kinase CK-MB (CK-2) C-Reactive Protein Total Protein Albumin Arterial Blood Glucose Urine WBC (Auto) Vancomycin Trough Coronavirus (PCR) 12/12/20 12/12/20 12/12/20 04:00 04:27 11:29 WBC RBC Hgb Hct RDW Lymph % (Auto) [place] # (Auto) Seg Neutrophils % Seg Neuts % (Manual) Lymphocytes % (Manual) Seg Neutrophils # Seg Neutrophils # Man Lymphocytes # (Manual) Monocytes # (Manual) Basophils # (Manual) D-Dimer ABG pH 7.453 H POC ABG pCO2 POC ABG pO2 79.3 L ABG Hemoglobin 9.3 L ABG Oxyhemoglobin ABG Sodium ABG Potassium ABG Chloride ABG Glucose 159 H Carboxyhemoglobin Sodium Chloride Carbon Dioxide BUN Creatinine Glucose POC Glucose 146 H 135 H Calcium Ferritin Lactate Dehydrogenase Total Creatine Kinase CK-MB (CK-2) C-Reactive Protein Total Protein Albumin Arterial Blood Glucose 159 H Urine WBC (Auto) Vancomycin Trough Coronavirus (PCR) 12/12/20 12/12/20 12/12/20 17:31 18:47 18:47 WBC RBC 3.38 L Hgb 9.3 L Hct 29.3 L RDW 18.8 H Lymph % (Auto) [place] # (Auto) Seg Neutrophils % Seg Neuts % (Manual) Lymphocytes % (Manual) Seg Neutrophils # Seg Neutrophils # Man Lymphocytes # (Manual) Monocytes # (Manual) Basophils # (Manual) D-Dimer ABG pH POC ABG pCO2 POC ABG pO2 ABG Hemoglobin ABG Oxyhemoglobin ABG Sodium ABG Potassium ABG Chloride ABG Glucose Carboxyhemoglobin Sodium Chloride Carbon Dioxide BUN Creatinine Glucose POC Glucose 145 H Calcium Ferritin Lactate Dehydrogenase Total Creatine Kinase CK-MB (CK-2) C-Reactive Protein Total Protein Albumin Arterial Blood Glucose Urine WBC (Auto) Vancomycin Trough 30.6 H Coronavirus (PCR) 12/12/20 12/13/20 12/13/20 23:38 04:52 04:52 WBC RBC 3.24 L Hgb 9.0 L Hct 27.6 L RDW 17.9 H Lymph % (Auto) [place] # (Auto) Seg Neutrophils % Seg Neuts % (Manual) Lymphocytes % (Manual) Seg Neutrophils # Seg Neutrophils # Man Lymphocytes # (Manual) Monocytes # (Manual) Basophils # (Manual) D-Dimer ABG pH POC ABG pCO2 POC ABG pO2 ABG Hemoglobin ABG Oxyhemoglobin ABG Sodium ABG Potassium ABG Chloride ABG Glucose Carboxyhemoglobin Sodium Chloride Carbon Dioxide BUN 27 H Creatinine Glucose 157 H POC Glucose 123 H Calcium Ferritin Lactate Dehydrogenase Total Creatine Kinase CK-MB (CK-2) C-Reactive Protein Total Protein Albumin 2.9 L Arterial Blood Glucose Urine WBC (Auto) Vancomycin Trough Coronavirus (PCR) 12/13/20 12/13/20 12/13/20 05:22 11:38 17:36 WBC RBC Hgb Hct RDW Lymph % (Auto) [place] # (Auto) Seg Neutrophils % Seg Neuts % (Manual) Lymphocytes % (Manual) Seg Neutrophils # Seg Neutrophils # Man Lymphocytes # (Manual) Monocytes # (Manual) Basophils # (Manual) D-Dimer ABG pH POC ABG pCO2 POC ABG pO2 ABG Hemoglobin ABG Oxyhemoglobin ABG Sodium ABG Potassium ABG Chloride ABG Glucose Carboxyhemoglobin Sodium Chloride Carbon Dioxide BUN Creatinine Glucose POC Glucose 176 H 140 H 139 H Calcium Ferritin Lactate Dehydrogenase Total Creatine Kinase CK-MB (CK-2) C-Reactive Protein Total Protein Albumin Arterial Blood Glucose Urine WBC (Auto) Vancomycin Trough Coronavirus (PCR) 12/14/20 12/14/20 12/14/20 00:14 06:11 08:30 WBC RBC Hgb Hct RDW Lymph % (Auto) [place] # (Auto) Seg Neutrophils % Seg Neuts % (Manual) Lymphocytes % (Manual) Seg Neutrophils # Seg Neutrophils # Man Lymphocytes # (Manual) Monocytes # (Manual) Basophils # (Manual) D-Dimer ABG pH 7.494 H POC ABG pCO2 POC ABG pO2 168.3 H ABG Hemoglobin 10.6 L ABG Oxyhemoglobin 98.8 H ABG Sodium ABG Potassium ABG Chloride ABG Glucose 136 H Carboxyhemoglobin 0.3 L Sodium Chloride Carbon Dioxide BUN Creatinine Glucose POC Glucose 145 H 144 H Calcium Ferritin Lactate Dehydrogenase Total Creatine Kinase CK-MB (CK-2) C-Reactive Protein Total Protein Albumin Arterial Blood Glucose 136 H Urine WBC (Auto) Vancomycin Trough Coronavirus (PCR) 12/14/20 11:43 WBC RBC Hgb Hct RDW Lymph % (Auto) [place] # (Auto) Seg Neutrophils % Seg Neuts % (Manual) Lymphocytes % (Manual) Seg Neutrophils # Seg Neutrophils # Man Lymphocytes # (Manual) Monocytes # (Manual) Basophils # (Manual) D-Dimer ABG pH POC ABG pCO2 POC ABG pO2 ABG Hemoglobin ABG Oxyhemoglobin ABG Sodium ABG Potassium ABG Chloride ABG Glucose Carboxyhemoglobin Sodium Chloride Carbon Dioxide BUN Creatinine Glucose POC Glucose 146 H Calcium Ferritin Lactate Dehydrogenase Total Creatine Kinase CK-MB (CK-2) C-Reactive Protein Total Protein Albumin Arterial Blood Glucose Urine WBC (Auto) Vancomycin Trough Coronavirus (PCR) Allied health notes reviewed: RT
[2020-12-14] MEDS: INSULIN REGULAR, HUMAN 100 UNITS/1 ML SUB-Q SCH (13:17)
[2020-12-14 14:21] LABS: Blood Urea Nitrogen 19 mg/dL (7-17); Calcium 9.5 mg/dL (8.4-10.2); Hemolysis Index 5
[2020-12-14 14:23] LABS: BUN/Creatinine Ratio 32
--- NOTE | 2020-12-14 17:44 | Progress Note ---
Assessment and Plan Assessment and plan: #Acute hypoxic respiratory failure -self extubated today, currently maintaining saturation on nasal cannula -continue pepcid for GI ppx -s/p 1 dose of Lasix per CCM yesterday for pulmonary edema -pending [place] transfer #Sepsis -blood cultures 12/11 no growth to date, UCx also negative -d/c vancomycin, continue zosyn for 5 days total #Severe tracheal stenosis -History of intubation over 40 times #Angioedema -history of hereditary idiopathic angioedema alpha gal syndrome -will need outpatient allergy/ENT follow-up #Hypertension - hypertensive urgency on presentation, resolved - continue HCTZ #Status post cardiac arrest -12/06 respiratory arrest #History type 2 diabetes -POC glucose q6h, continue sliding scale insulin -tube feeds @ 65cc #NINI -Resolved Total Time Spent with Patient (Minutes): 30 minutes History Interval history: Patient agitated and restless overnight. Self extubated this morning. Currently stable on nasal cannula. Denies complaints at this time. Hospitalist Physical - Physical exam Narrative exam: GENERAL: Obese woman. Lying in bed intubated, but alert. CHEST/LUNGS: Coarse breath sounds bilaterally. HEART: No murmur, rubs or gallops appreciated. ABDOMEN: +BS. NT/ND. NEURO: No focal motor deficit. Follows all commands. EXTREMITIES: No cyanosis, cubbing or edema. PSYCH: Appropriate affect. - Constitutional Vitals: Temp Pulse Resp BP Pulse Ox 98 F 70 10 L 163/82 98 12/14/20 16:00 12/14/20 17:00 12/14/20 17:00 12/14/20 17:00 12/14/20 15:00 General appearance: Present: no acute distress, well-nourished, obese, other (Intubated on vent, sedated but follows commands) HEART Score - HEART Score Troponin: Troponin T < 0.010 ng/mL (0.00-0.029) 11/30/20 14:12 Results - Labs CBC & Chem 7: 12/13/20 04:52 12/14/20 Unknown Labs: Laboratory Last Values WBC 9.1 K/mm3 (4.5-11.0) 12/13/20 04:52 RBC 3.24 M/mm3 (3.65-5.03) L 12/13/20 04:52 Hgb 9.0 gm/dl (10.1-14.3) L 12/13/20 04:52 Hct 27.6 % (30.3-42.9) L 12/13/20 04:52 MCV 85 fl (79-97) 12/13/20 04:52 MCH 28 pg (28-32) 12/13/20 04:52 MCHC 33 % (30-34) 12/13/20 04:52 RDW 17.9 % (13.2-15.2) H 12/13/20 04:52 Plt Count 222 K/mm3 (140-440) 12/13/20 04:52 Lymph % (Auto) 13.1 % (13.4-35.0) L 12/05/20 11:04 [place] % (Auto) 6.7 % (0.0-7.3) 12/05/20 11:04 Eos % (Auto) 2.2 % (0.0-4.3) 12/05/20 11:04 Baso % (Auto) 0.4 % (0.0-1.8) 12/05/20 11:04 Lymph # (Auto) 1.7 K/mm3 (1.2-5.4) 12/05/20 11:04 [place] # (Auto) 0.9 K/mm3 (0.0-0.8) H 12/05/20 11:04 Eos # (Auto) 0.3 K/mm3 (0.0-0.4) 12/05/20 11:04 Baso # (Auto) 0.1 K/mm3 (0.0-0.1) 12/05/20 11:04 Add Manual Diff Complete 12/04/20 05:40 Total Counted 100 12/04/20 05:40 Seg Neutrophils % 77.6 % (40.0-70.0) H 12/05/20 11:04 Seg Neuts % (Manual) 74.0 % (40.0-70.0) H 12/04/20 05:40 Band Neutrophils % 16.0 % 12/04/20 05:40 Lymphocytes % (Manual) 2.0 % (13.4-35.0) L 12/04/20 05:40 Monocytes % (Manual) 5.0 % (0.0-7.3) 12/04/20 05:40 Eosinophils % (Manual) 2.0 % (0.0-4.3) 12/04/20 05:40 Basophils % (Manual) 1.0 % (0.0-1.8) 12/04/20 05:40 Nucleated RBC % Not Reportable 12/04/20 05:40 Seg Neutrophils # 10.0 K/mm3 (1.8-7.7) H 12/05/20 11:04 Seg Neutrophils # Man 16.1 K/mm3 (1.8-7.7) H 12/04/20 05:40 Band Neutrophils # 3.5 K/mm3 12/04/20 05:40 Lymphocytes # (Manual) 0.4 K/mm3 (1.2-5.4) L 12/04/20 05:40 Abs React Lymphs (Man) 0.0 K/mm3 12/04/20 05:40 Monocytes # (Manual) 1.1 K/mm3 (0.0-0.8) H 12/04/20 05:40 Eosinophils # (Manual) 0.4 K/mm3 (0.0-0.4) 12/04/20 05:40 Basophils # (Manual) 0.2 K/mm3 (0.0-0.1) H 12/04/20 05:40 Metamyelocytes # 0.0 K/mm3 12/04/20 05:40 Myelocytes # 0.0 K/mm3 12/04/20 05:40 Promyelocytes # 0.0 K/mm3 12/04/20 05:40 Blast Cells # 0.0 K/mm3 12/04/20 05:40 WBC Morphology Not Reportable 12/04/20 05:40 Hypersegmented Neuts Not Reportable 12/04/20 05:40 Hyposegmented Neuts Not Reportable 12/04/20 05:40 Hypogranular Neuts Not Reportable 12/04/20 05:40 Smudge Cells Not Reportable 12/04/20 05:40 Toxic Granulation Not Reportable 12/04/20 05:40 Toxic Vacuolation Not Reportable 12/04/20 05:40 Dohle Bodies Not Reportable 12/04/20 05:40 Pelger-Huet Anomaly Not Reportable 12/04/20 05:40 Solomon Rods Not Reportable 12/04/20 05:40 Platelet Estimate Not Reportable 12/04/20 05:40 Clumped Platelets 1+ 12/04/20 05:40 Plt Clumps, EDTA Not Reportable 12/04/20 05:40 Large Platelets Not Reportable 12/04/20 05:40 Giant Platelets Not Reportable 12/04/20 05:40 Platelet Satelliting Not Reportable 12/04/20 05:40 Plt Morphology Comment Not Reportable 12/04/20 05:40 RBC Morphology Normal 12/04/20 05:40 Dimorphic RBCs Not Reportable 12/04/20 05:40 Polychromasia Not Reportable 12/04/20 05:40 Hypochromasia Not Reportable 12/04/20 05:40 Poikilocytosis Not Reportable 12/04/20 05:40 Anisocytosis Not Reportable 12/04/20 05:40 Microcytosis Not Reportable 12/04/20 05:40 Macrocytosis Not Reportable 12/04/20 05:40 Spherocytes Not Reportable 12/04/20 05:40 Pappenheimer Bodies Not Reportable 12/04/20 05:40 Sickle Cells Not Reportable 12/04/20 05:40 Target Cells Not Reportable 12/04/20 05:40 Tear Drop Cells Not Reportable 12/04/20 05:40 Ovalocytes Not Reportable 12/04/20 05:40 Helmet Cells Not Reportable 12/04/20 05:40 [place] Bodies Not Reportable 12/04/20 05:40 [place] Rings Not Reportable 12/04/20 05:40 [place] Cells Not Reportable 12/04/20 05:40 Bite Cells Not Reportable 12/04/20 05:40 Crenated Cell Not Reportable 12/04/20 05:40 Elliptocytes Not Reportable 12/04/20 05:40 Acanthocytes (Spur) Not Reportable 12/04/20 05:40 Rouleaux Not Reportable 12/04/20 05:40 Hemoglobin C Crystals Not Reportable 12/04/20 05:40 Schistocytes Not Reportable 12/04/20 05:40 Malaria parasites Not Reportable 12/04/20 05:40 Charanjit Bodies Not Reportable 12/04/20 05:40 Hem Pathologist Commnt No 12/04/20 05:40 PT 13.9 Sec. (12.2-14.9) 12/07/20 04:00 INR 1.02 (0.87-1.13) 12/07/20 04:00 D-Dimer 1838.21 ng/mlDDU (0-234) H 12/04/20 10:41 ABG pH 7.494 (7.320-7.450) H 12/14/20 08:30 POC ABG pCO2 36.7 mmHg (32.0-48.0) 12/14/20 08:30 POC ABG pO2 168.3 mmHg (83-108) H 12/14/20 08:30 POC ABG HCO3 27.6 12/14/20 08:30 ABG O2 Saturation 99.4 (0-100) 12/14/20 08:30 POC ABG Base Excess 4.2 12/14/20 08:30 ABG Hemoglobin 10.6 (12.0-17.5) L 12/14/20 08:30 ABG Oxyhemoglobin 98.8 (94-98) H 12/14/20 08:30 ABG Methemoglobin 0.3 (0.0-1.5) 12/14/20 08:30 ABG Sodium 138.2 mmol/L (136.0-145.0) 12/14/20 08:30 ABG Potassium 3.7 mmol/L (3.40-4.50) 12/14/20 08:30 ABG Chloride 101.0 mmol/L (98-107) 12/14/20 08:30 ABG Glucose 136 mg/dL (65-95) H 12/14/20 08:30 Carboxyhemoglobin 0.3 (0.5-1.5) L 12/14/20 08:30 FiO2 % 40.0 12/14/20 08:30 Sodium 140 mmol/L (137-145) 12/14/20 Unknown Potassium 4.2 mmol/L (3.6-5.0) 12/14/20 Unknown Chloride 101.1 mmol/L (98-107) 12/14/20 Unknown Carbon Dioxide 28 mmol/L (22-30) 12/14/20 Unknown Anion Gap 15 mmol/L 12/14/20 Unknown BUN 19 mg/dL (7-17) H 12/14/20 Unknown Creatinine 0.6 mg/dL (0.6-1.2) 12/14/20 Unknown Estimated GFR > 60 ml/min 12/14/20 Unknown BUN/Creatinine Ratio 32 % 12/14/20 Unknown Glucose 146 mg/dL (65-100) H 12/14/20 Unknown POC Glucose 146 mg/dL (70-105) H 12/14/20 11:43 Calcium 9.5 mg/dL (8.4-10.2) 12/14/20 Unknown Phosphorus TNR 12/12/20 14:33 Magnesium 2.10 mg/dL (1.7-2.3) 12/11/20 06:05 Ferritin 399.0 ng/mL (10.0-200.0) H 12/04/20 10:41 Total Bilirubin 0.30 mg/dL (0.1-1.2) 12/13/20 04:52 Direct Bilirubin < 0.2 mg/dL (0-0.2) 11/29/20 07:48 Indirect Bilirubin 0.0 mg/dL 11/29/20 07:48 AST 16 units/L (5-40) 12/13/20 04:52 ALT 28 units/L (7-56) 12/13/20 04:52 Alkaline Phosphatase 59 units/L (35-129) 12/13/20 04:52 Lactate Dehydrogenase 386 units/L (91-180) H 12/04/20 10:41 Total Creatine Kinase 1132 units/L (30-135) H 11/30/20 14:12 CK-MB (CK-2) 14.6 ng/mL (0.0-4.0) H 11/30/20 14:12 CK-MB (CK-2) Rel Index 1.2 (0-4) 11/30/20 14:12 Troponin T < 0.010 ng/mL (0.00-0.029) 11/30/20 14:12 C-Reactive Protein 34.30 mg/dL (0.00-1.30) H 12/04/20 10:41 Total Protein 6.5 g/dL (6.3-8.2) 12/13/20 04:52 Albumin 2.9 g/dL (3.9-5) L 12/13/20 04:52 Albumin/Globulin Ratio 0.8 % 12/13/20 04:52 HCG, Qual Negative (Negative) 11/29/20 07:48 Arterial Blood Glucose 136 mg/dL (65-95) H 12/14/20 08:30 Arterial Blood Ionized Calcium 4.7 mg/dL (4.6-5.3) 12/14/20 08:30 Urine Color Colorless (Yellow) 12/11/20 12:22 Urine Turbidity Clear (Clear) 12/11/20 12:22 Urine pH 5.0 (5.0-7.0) 12/11/20 12:22 Ur Specific [place] 1.005 (1.003-1.030) 12/11/20 12:22 Urine Protein <15 mg/dl mg/dL (Negative) 12/11/20 12:22 Urine Glucose (UA) Neg mg/dL (Negative) 12/11/20 12: Urine Ketones Neg mg/dL (Negative) 12/11/20 12:22 Urine Blood Sm (Negative) 12/11/20 12:22 Urine Nitrite Neg (Negative) 12/11/20 12:22 Urine Bilirubin Neg (Negative) 12/11/20 12:22 Urine Urobilinogen < 2.0 mg/dL (<2.0) 12/11/20 12:22 Ur Leukocyte Esterase Neg (Negative) 12/11/20 12:22 Urine WBC (Auto) < 1.0 /HPF (0.0-6.0) 12/11/20 12:22 Urine RBC (Auto) 11.0 /HPF (0.0-6.0) 12/11/20 12:22 U Epithel Cells (Auto) 1.0 /HPF (0-13.0) 12/11/20 12:22 Urine Bacteria (Auto) 1+ /HPF (Negative) 12/11/20 12:22 Urine WBC Clumps 3+ /HPF 12/04/20 07:30 RBC Casts 1 /LPF 12/11/20 12:22 WBC Casts 17 /LPF 12/04/20 07:30 Urine Mucus Few /HPF 12/11/20 12:22 Nasal Screen MRSA (PCR) Negative (Negative) 12/13/20 10:24 Vancomycin Trough 30.6 ug/mL (5.0-20.0) H 12/12/20 18:47 Random Vancomycin 7.9 ug/mL (0-40.0) 12/14/20 05:58 Coronavirus (PCR) Positive (Negative) A 12/03/20 08:00 Microbiology: Microbiology 12/11/20 12:54 Peripheral/Venous Blood Culture - Preliminary NO GROWTH AFTER 72 HOURS 12/11/20 12:54 Peripheral/Venous Blood Culture - Preliminary NO GROWTH AFTER 72 HOURS 12/11/20 21:19 Tracheal Aspirate Sputum Culture - Preliminary 12/11/20 09:56 Urine,Dash Port Urine Culture - Final NO GROWTH AFTER 48 HOURS Dash/IV: Voiding Method Indwelling Catheter Active Medications - Current Medications Current Medications: Generic Name Dose Route Start Last Admin Trade Name Freq PRN Reason Stop Dose Admin Acetaminophen 650 mg 12/04/20 00:39 12/10/20 05:24 Acetaminophen 325 Mg Tab PO 650 mg Q6H PRN Administration Fever >101 Albuterol 2.5 mg 11/29/20 15:22 Albuterol 2.5 Mg/3 Ml Nebu IH Q4HRT PRN Shortness Of Breath Albuterol/Ipratropium 1 ampul 12/07/20 20:00 12/14/20 08:31 Ipratropium/Albuterol Sulfate 3 Ml Ampul.Neb IH 1 ampul Q12HRT KRYSTAL Administration Lipase/Protease/Amylase 1 each 11/29/20 15:23 Lipase 10,500/Protease 25,000/Amylase 43,750 (Units) Dr Ariza FEEDTUBE PRN PRN For Clogged Feeding Tube Ascorbic Acid 500 mg 12/04/20 22:00 12/14/20 10:29 Ascorbic Acid 500 Mg Tab PO Not Given BID KRYSTAL Dextrose 50 ml 12/05/20 10:34 Dextrose 50% In Water (25gm) 50 Ml Syringe IV Q30MIN PRN Hypoglycemia Protocol Doxepin HCl 75 mg 12/14/20 22:00 Doxepin 25 Mg Cap PO BID KRYSTAL Famotidine 20 mg 11/30/20 15:00 12/14/20 10:29 Famotidine 20 Mg/2 Ml Inj IV Not Given BID KRYSTAL Fentanyl 50 mcg 11/29/20 10:22 Fentanyl 100 Mcg/2 Ml Inj IV Q10MIN PRN ANALGESIA Fondaparinux 2.5 mg 11/29/20 22:00 12/13/20 21:21 Fondaparinux 2.5 Mg/0.5 Ml Inj SUB-Q 2.5 mg Q24H KRYSTAL Administration Gabapentin 600 mg 11/30/20 17:00 12/14/20 10:24 Gabapentin 500 Mg/10 Ml Oral Liqd PO Not Given BID [facility] Glycopyrrolate 2 mg 12/13/20 20:00 12/14/20 15:05 Glycopyrrolate 2 Mg Tab PO Not Given TID [facility] Hydrochlorothiazide 12.5 mg 12/10/20 10:00 12/14/20 10:29 Hydrochlorothiazide 12.5 Mg Cap PO Not Given QDAY [facility] Hydrophilic Ointment 1 applic 12/01/20 08:54 Lip Therapy Vaseline TP Q2HR PRN Dry Lips Fentanyl Citrate 2,000 mcg in 100 mls @ 6.45 mls/hr 11/29/20 12:30 12/14/20 02:45 Fentanyl Drip Premix IV 3 mcg/kg/hr TITR KRYSTAL 19.35 mls/hr Administration Protocol 1 MCG/KG/HR Dexmedetomidine HCl 400 mcg/ 104 mls @ 6.885 mls/hr 12/08/20 16:00 12/14/20 17:19 Sodium Chloride IV 1 mcg/kg/hr TITRATE KRYSTAL 34.424 mls/hr Titration Protocol 0.2 MCG/KG/HR Piperacillin Sod/Tazobactam Sod 4.5 gm in 100 mls @ 200 mls/hr 12/13/20 12:00 12/14/20 13:16 Zosyn/Ns 4.5gm/100ml IV 12/16/20 20:29 200 mls/hr Q8H [facility] Administration Protocol Insulin Human Regular 0 units 12/05/20 12:00 12/14/20 13:17 Insulin Regular, Human 100 Units/1 Ml SUB-Q Not Given Q6HR [facility] Protocol Montelukast Sodium 10 mg 11/29/20 22:00 12/13/20 21:21 Montelukast 10 Mg Tab PO 10 mg HS [facility] Administration Multi-Ingred Cream/Lotion/Oil/Oint 1 applic 12/01/20 08:54 Mineral Oil/Petrolatum, White Ophth Oint 3.5 Gm OU Q4HR PRN Dry Eye(s) Quetiapine Fumarate 150 mg 12/12/20 14:00 12/14/20 15:06 Quetiapine 100 Mg Tab PO Not Given Q8H [facility] Scopolamine 1 each 12/13/20 18:00 12/13/20 17:48 Scopolamine Transdermal Patch 72 Hr TD 1 each Q3D KRYSTAL Administration Senna/Docusate Sodium 1 tab 11/29/20 10:00 12/14/20 10:29 Sennosides/Docusate Sodium 8.6/50 Mg Tab FEEDTUBE Not Given BID KRYSTAL Simple Syrup 15 ml 11/29/20 15:23 Simple Syrup 15 Ml FEEDTUBE PRN PRN Hypoglycemia Simple Syrup 30 ml 11/29/20 15:23 Simple Syrup 15 Ml FEEDTUBE PRN PRN Hypoglycemia Sodium Bicarbonate 325 mg 11/29/20 15:23 Sodium Bicarbonate 325 Mg Tab FEEDTUBE PRN PRN For Clogged Feeding Tube Zinc Sulfate 220 mg 12/05/20 10:00 12/14/20 10:30 Zinc Sulfate 220 Mg Cap PO Not Given QDAY KRYSTAL Nutrition/Malnutrition Assess - Dietary Evaluation Nutrition/Malnutrition Findings: Nutrition Notes Start: 11/30/20 09:03 Freq: Status: Active Protocol: Document 12/13/20 11:20 (Rec: 12/13/20 11:23 [id number]) Nutrition Notes Initial or Follow up Reassessment Current Diagnosis Respiratory Failure Other Pertinent Diagnosis allergic reaction, alpha gal, hx HTN Current Diet Vital HP at 65 ml/hr Labs/Tests BUN 27 BG 157 Pertinent Medications Zinc Vitamin C Height 5 ft 6 in Weight 132.4 kg Eva Body Weight (kg) 59.09 BMI 47.1 Weight Status Morbidly Obese Subjective/Other Information Pt tolerating TF at goal rate. No signs of intolerance noted . Percent of energy/protein needs met: 84%/91% Burn Absent Trauma Absent Difficulty In Swallowing Current % PO Negligible #1 Nutrition Diagnosis Inadequate oral intake Diagnosis Progress(for reassessment Continues documentation) Is patient on ventilator? Yes Is Patient Ambulatory and/or Out of Bed No REE-([facility]-confined to bed) 2421.060 Kcal/Kg value to use for calculation 14 Approximate Energy Requirements Using 1854 kcal/Kg Calculation Used for Recommendations Kcal/kg Additional Notes Protein needs: 2.5 g/kg IBW , 148 g Fluid needs: 1ml/kcal Nutrition Intervention Change Diet Order: continue Nutrition Support: Vital High Protein at 65 ml/hr flush 45 ml q4h Kcal 1,560 Protein (gm) 135 Fluid (mL) 1,304 Goal #1 Meet at least 75% of protein and kcal needs via TF Anticipated Discharge Needs: Unable to determine at this time Follow-Up By: 12/20/20 Additional Comments F/u: stable TF, tolerance
[2020-12-14] MEDS ORDERED: HALOPERIDOL LACTATE 5 MG/1 ML INJ ONE (21:39)
[2020-12-14] MEDS: FONDAPARINUX 2.5 MG/0.5 ML INJ SUB-Q SCH (21:45)
[2020-12-14] MEDS ORDERED: HALOPERIDOL LACTATE 5 MG/1 ML INJ IM ONE (21:46)
[2020-12-14] MEDS: MONTELUKAST 10 MG TAB PO SCH (22:32)
[2020-12-14] MEDS: DOXEPIN 25 MG CAP PO SCH (22:32)
[2020-12-15] MEDS: INSULIN REGULAR, HUMAN 100 UNITS/1 ML SUB-Q SCH ×4 (00:08→13:01)
[2020-12-15] MEDS: hydrALAZINE 20 MG/1 ML INJ IV PRN (03:51)
[2020-12-15] MEDS: QUEtiapine 100 MG TAB PO SCH ×2 (08:36→15:00)
[2020-12-15] MEDS: PIPERACIL/TAZOBACTA 4.5/NS 100 4.5 GM/100 ML VIAL IV SCH ×2 (08:36→13:01)
[2020-12-15] MEDS: GLYCOPYRROLATE 2 MG TAB PO SCH ×2 (08:37→15:00)
[2020-12-15] MEDS: IPRATROPIUM/ALBUTEROL SULFATE 3 ML AMPUL.NEB IH SCH ×2 (10:27→21:45)
[2020-12-15] MEDS: SENNOSIDES/DOCUSATE SODIUM 8.6/50 MG TAB FEEDTUBE SCH (11:35)
[2020-12-15] MEDS: ASCORBIC ACID 500 MG TAB PO SCH (11:35)
[2020-12-15] MEDS: ZINC SULFATE 220 MG CAP PO SCH (11:35)
[2020-12-15] MEDS: GABAPENTIN 500 MG/10 ML ORAL LIQD PO SCH (11:35)
[2020-12-15] MEDS: FAMOTIDINE 20 MG/2 ML INJ IV SCH (11:35)
[2020-12-15] MEDS: hydroCHLOROthiazide 12.5 MG CAP PO SCH (11:35)
[2020-12-15] MEDS: DOXEPIN 25 MG CAP PO SCH (11:35)
--- NOTE | 2020-12-15 11:35 | Progress Note ---
Assessment and Plan Acute hypoxemic respiratory failure Angioedema Morbid obesity Mild leukocytosis Hypertension. H/O alpha-gal syndrome - will get Psychiatry evaluation - will get Neurology evaluation - will transfer to med/surg - may need sitter (will defer to Psychiatry team) - BIPAP prn / qhs if tolerates - advance diet per DISPENSING LEAD - continue care as below otherwise; - anti-infective's per ID recommendations - supplemental oxygen for target O2 sat's > 92% acutely - aspiration precautions - prn bronchodilators with pulmonary hygiene per RT - wean per pulmonary driven protocols otherwise - continue accuchecks with glycemic control per SSI for target blood glucose < 180 mg/dL - avoid nephrotoxins, renally dose all medications - continue to avoid benzodiazepine's, reduce the possibility of delirium - prn analgesia per pain score - Maintenance of sleep-wake cycle, avoid delirium - G.I. & VTE prophylaxis - PT/OT/ROM exercises - continue mobility protocols for pressure ulcer prophylaxis - Monitor hemodynamics closely - continue other care per attending / other consultants - discharge planning ongoing concurrently COVID SPECIFIC INTERVENTIONS - Continue contact and airborne isolation - Remdesivir as per ID/Pulmonary developed protocols (not indicated re: duration of illness) - continue systemic steroids for severe COVID-19 infection empirically (no steroids re: COVID recovery status and h/o allergy to Solumedrol) - follow repeat COVID tests results - zinc and vitamin C supplementation - Monitor inflammatory markers per facility protocol - ferritin, Ddimer, CRP - therapeutic anticoagulation per system Protocol based on d-dimer and clinical considerations (VTE prophylaxis) .... Re-evaluate in am & prn CONDITION: STABLE PROGNOSIS: GUARDED CODE STATUS: FULL CODE Subjective Date of service: 12/15/20 Principal diagnosis: Acute Hypoxemic Respiratory Failure; Angioedema;Obesity; leukocytosis Interval history: Patient is seen today for: Acute hypoxemic respiratory failure; Angioedema; Morbid obesity; leukocytosis; HTN; H/O alpha-gal syndrome Seen and examined at bedside; 24hour events reviewed; nursing and respiratory care staff consulted; no adverse overnight events reported to me; resting in bed; wanting to sign out AMA; still a little confused; thinks she spoke to her today already and he confirms she does not sound like herself; pulled out bullock / IV access; no seizures and no new onset focal weakness Objective Vital Signs - 12hr 12/15/20 12/15/20 12/15/20 00:00 00:16 00:30 Temperature 99.0 F Pulse Rate 53 L 56 L Respiratory 20 14 Rate Blood Pressure 182/87 162/88 O2 Sat by Pulse 99 93 95 Oximetry 12/15/20 12/15/20 12/15/20 01:00 01:30 02:00 Temperature Pulse Rate 63 64 53 L Respiratory 14 21 11 L Rate Blood Pressure 165/101 167/84 161/98 O2 Sat by Pulse 96 99 Oximetry 12/15/20 12/15/20 12/15/20 03:00 03:31 03:51 Temperature 99.3 F Pulse Rate 57 L 68 Respiratory 26 H Rate Blood Pressure 168/92 168/92 O2 Sat by Pulse 96 Oximetry 12/15/20 12/15/20 12/15/20 04:00 04:05 05:00 Temperature Pulse Rate 57 L 63 Respiratory 23 12 Rate Blood Pressure 168/92 148/84 O2 Sat by Pulse 100 100 100 Oximetry 12/15/20 12/15/20 12/15/20 06:00 07:00 07:15 Temperature 99.6 F Pulse Rate 66 61 Respiratory 19 14 Rate Blood Pressure 148/84 O2 Sat by Pulse 64 L 100 Oximetry 12/15/20 12/15/20 12/15/20 08:00 09:00 10:00 Temperature Pulse Rate 55 L 52 L 56 L Respiratory 19 22 21 Rate Blood Pressure 118/58 122/51 112/54 O2 Sat by Pulse 100 100 100 Oximetry Constitutional: no acute distress, other (young obese female without increased respiratory effort at rest) Eyes: non-icteric ENT: oropharynx moist, other (extubated) Neck: supple, no lymphadenopathy, no JVD, other (large circumference; + healed trach scar) Effort: normal Ascultation: Bilateral: rhonchi (scant) Percussion: Bilateral: not dull Cardiovascular: regular rate and rhythm, other (S1,S2) Gastrointestinal: normoactive bowel sounds, soft, non-tender, non-distended Integumentary: normal Extremities: no cyanosis, no edema, pink and warm, pulses normal Neurologic: non-focal exam, pupils equal and round, CN II-XII normal, motor strength normal and Psychiatric: other (delirious) CBC and BMP: 12/13/20 04:52 12/14/20 Unknown ABG, PT/INR, D-dimer: ABG ABG pH 7.494 (7.320-7.450) H 12/14/20 08:30 POC ABG pCO2 36.7 mmHg (32.0-48.0) 12/14/20 08:30 POC ABG pO2 168.3 mmHg (83-108) H 12/14/20 08:30 POC ABG HCO3 27.6 12/14/20 08:30 ABG O2 Saturation 99.4 (0-100) 12/14/20 08:30 PT/INR, D-dimer PT 13.9 Sec. (12.2-14.9) 12/07/20 04:00 INR 1.02 (0.87-1.13) 12/07/20 04:00 D-Dimer 1838.21 ng/mlDDU (0-234) H 12/04/20 10:41 Abnormal lab findings: Abnormal Labs 11/29/20 11/29/20 11/29/20 07:48 07:48 07:48 WBC 11.3 H RBC Hgb Hct RDW 18.0 H Lymph % (Auto) Wright # (Auto) Seg Neutrophils % Seg Neuts % (Manual) Lymphocytes % (Manual) Seg Neutrophils # 7.9 H Seg Neutrophils # Man Lymphocytes # (Manual) Monocytes # (Manual) Basophils # (Manual) D-Dimer ABG pH POC ABG pCO2 POC ABG pO2 ABG Hemoglobin ABG Oxyhemoglobin ABG Sodium ABG Potassium ABG Chloride ABG Glucose Carboxyhemoglobin Sodium 135 L Chloride Carbon Dioxide BUN Creatinine Glucose 204 H POC Glucose Calcium Ferritin Lactate Dehydrogenase Total Creatine Kinase CK-MB (CK-2) C-Reactive Protein Total Protein Albumin 3.7 L Arterial Blood Glucose Urine WBC (Auto) Vancomycin Trough Coronavirus (PCR) 11/29/20 11/30/20 11/30/20 11:37 04:27 11:22 WBC RBC Hgb Hct RDW Lymph % (Auto) Wright # (Auto) Seg Neutrophils % Seg Neuts % (Manual) Lymphocytes % (Manual) Seg Neutrophils # Seg Neutrophils # Man Lymphocytes # (Manual) Monocytes # (Manual) Basophils # (Manual) D-Dimer ABG pH 7.318 L POC ABG pCO2 POC ABG pO2 76.1 L 196.4 H ABG Hemoglobin 11.96 L ABG Oxyhemoglobin 92.4 L 98.5 H ABG Sodium 133.7 L ABG Potassium 5.0 H ABG Chloride ABG Glucose 171 H Carboxyhemoglobin 2.5 H Sodium Chloride Carbon Dioxide BUN Creatinine Glucose POC Glucose 157 H Calcium Ferritin Lactate Dehydrogenase Total Creatine Kinase CK-MB (CK-2) C-Reactive Protein Total Protein Albumin Arterial Blood Glucose 171 H Urine WBC (Auto) Vancomycin Trough Coronavirus (PCR) 11/30/20 11/30/20 11/30/20 14:12 17:19 23:42 WBC RBC Hgb Hct RDW Lymph % (Auto) Wright # (Auto) Seg Neutrophils % Seg Neuts % (Manual) Lymphocytes % (Manual) Seg Neutrophils # Seg Neutrophils # Man Lymphocytes # (Manual) Monocytes # (Manual) Basophils # (Manual) D-Dimer ABG pH POC ABG pCO2 POC ABG pO2 ABG Hemoglobin ABG Oxyhemoglobin ABG Sodium ABG Potassium ABG Chloride ABG Glucose Carboxyhemoglobin Sodium Chloride Carbon Dioxide BUN Creatinine Glucose POC Glucose 135 H 121 H Calcium Ferritin Lactate Dehydrogenase Total Creatine Kinase 1132 H CK-MB (CK-2) 14.6 H C-Reactive Protein Total Protein Albumin Arterial Blood Glucose Urine WBC (Auto) Vancomycin Trough Coronavirus (PCR) 12/01/20 12/01/20 12/01/20 03:30 04:21 06:16 WBC RBC Hgb Hct RDW Lymph % (Auto) Wright # (Auto) Seg Neutrophils % Seg Neuts % (Manual) Lymphocytes % (Manual) Seg Neutrophils # Seg Neutrophils # Man Lymphocytes # (Manual) Monocytes # (Manual) Basophils # (Manual) D-Dimer ABG pH POC ABG pCO2 POC ABG pO2 37.6 L 76.2 L ABG Hemoglobin 10.4 L 10.8 L ABG Oxyhemoglobin 76.4 L 93.7 L ABG Sodium 112.8 L 110.9 L ABG Potassium ABG Chloride ABG Glucose 103 H 107 H Carboxyhemoglobin Sodium Chloride Carbon Dioxide BUN Creatinine Glucose POC Glucose 129 H Calcium Ferritin Lactate Dehydrogenase Total Creatine Kinase CK-MB (CK-2) C-Reactive Protein Total Protein Albumin Arterial Blood Glucose 103 H 107 H Urine WBC (Auto) Vancomycin Trough Coronavirus (PCR) 12/02/20 12/02/20 12/02/20 04:00 12:02 17:10 WBC RBC Hgb Hct RDW Lymph % (Auto) Wright # (Auto) Seg Neutrophils % Seg Neuts % (Manual) Lymphocytes % (Manual) Seg Neutrophils # Seg Neutrophils # Man Lymphocytes # (Manual) Monocytes # (Manual) Basophils # (Manual) D-Dimer ABG pH 7.306 L POC ABG pCO2 58.0 H POC ABG pO2 58.5 L ABG Hemoglobin 11.4 L ABG Oxyhemoglobin 86.9 L ABG Sodium 124.7 L ABG Potassium ABG Chloride ABG Glucose 118 H Carboxyhemoglobin Sodium Chloride Carbon Dioxide BUN Creatinine Glucose POC Glucose 143 H 134 H Calcium Ferritin Lactate Dehydrogenase Total Creatine Kinase CK-MB (CK-2) C-Reactive Protein Total Protein Albumin Arterial Blood Glucose 118 H Urine WBC (Auto) Vancomycin Trough Coronavirus (PCR) 12/03/20 12/03/20 12/04/20 05:10 08:00 03:32 WBC RBC Hgb Hct RDW Lymph % (Auto) Wright # (Auto) Seg Neutrophils % Seg Neuts % (Manual) Lymphocytes % (Manual) Seg Neutrophils # Seg Neutrophils # Man Lymphocytes # (Manual) Monocytes # (Manual) Basophils # (Manual) D-Dimer ABG pH 7.272 L POC ABG pCO2 60.1 H 54.6 H POC ABG pO2 82.8 L 78.6 L ABG Hemoglobin 11.4 L ABG Oxyhemoglobin ABG Sodium 132.2 L 130.2 L ABG Potassium ABG Chloride ABG Glucose 166 H 164 H Carboxyhemoglobin 0.4 L Sodium Chloride Carbon Dioxide BUN Creatinine Glucose POC Glucose Calcium Ferritin Lactate Dehydrogenase Total Creatine Kinase CK-MB (CK-2) C-Reactive Protein Total Protein Albumin Arterial Blood Glucose 166 H 164 H Urine WBC (Auto) Vancomycin Trough Coronavirus (PCR) Positive A 12/04/20 12/04/20 12/04/20 05:40 05:40 07:30 WBC 21.7 H RBC Hgb Hct RDW 18.2 H Lymph % (Auto) Wright # (Auto) Seg Neutrophils % Seg Neuts % (Manual) 74.0 H Lymphocytes % (Manual) 2.0 L Seg Neutrophils # Seg Neutrophils # Man 16.1 H Lymphocytes # (Manual) 0.4 L Monocytes # (Manual) 1.1 H Basophils # (Manual) 0.2 H D-Dimer ABG pH POC ABG pCO2 POC ABG pO2 ABG Hemoglobin ABG Oxyhemoglobin ABG Sodium ABG Potassium ABG Chloride ABG Glucose Carboxyhemoglobin Sodium Chloride Carbon Dioxide BUN 26 H Creatinine 1.7 H D Glucose 157 H POC Glucose Calcium Ferritin Lactate Dehydrogenase Total Creatine Kinase CK-MB (CK-2) C-Reactive Protein Total Protein 6.2 L Albumin 2.6 L Arterial Blood Glucose Urine WBC (Auto) > 182.0 H Vancomycin Trough Coronavirus (PCR) 12/04/20 12/04/20 12/04/20 10:41 10:41 10:41 WBC RBC Hgb Hct RDW Lymph % (Auto) Wright # (Auto) Seg Neutrophils % Seg Neuts % (Manual) Lymphocytes % (Manual) Seg Neutrophils # Seg Neutrophils # Man Lymphocytes # (Manual) Monocytes # (Manual) Basophils # (Manual) D-Dimer 1838.21 H ABG pH POC ABG pCO2 POC ABG pO2 ABG Hemoglobin ABG Oxyhemoglobin ABG Sodium ABG Potassium ABG Chloride ABG Glucose Carboxyhemoglobin Sodium Chloride Carbon Dioxide BUN Creatinine Glucose POC Glucose Calcium Ferritin 399.0 H Lactate Dehydrogenase 386 H Total Creatine Kinase CK-MB (CK-2) C-Reactive Protein 34.30 H Total Protein Albumin Arterial Blood Glucose Urine WBC (Auto) Vancomycin Trough Coronavirus (PCR) 12/04/20 12/05/20 12/05/20 23:58 00:10 00:45 WBC RBC Hgb Hct RDW Lymph % (Auto) Wright # (Auto) Seg Neutrophils % Seg Neuts % (Manual) Lymphocytes % (Manual) Seg Neutrophils # Seg Neutrophils # Man Lymphocytes # (Manual) Monocytes # (Manual) Basophils # (Manual) D-Dimer ABG pH POC ABG pCO2 55.5 H POC ABG pO2 ABG Hemoglobin 11.2 L ABG Oxyhemoglobin ABG Sodium 135.0 L ABG Potassium 4.6 H ABG Chloride ABG Glucose 165 H Carboxyhemoglobin Sodium Chloride Carbon Dioxide BUN Creatinine Glucose POC Glucose 134 H 146 H Calcium Ferritin Lactate Dehydrogenase Total Creatine Kinase CK-MB (CK-2) C-Reactive Protein Total Protein Albumin Arterial Blood Glucose 165 H Urine WBC (Auto) Vancomycin Trough Coronavirus (PCR) 12/05/20 12/05/20 12/05/20 11:04 11:04 11:52 WBC 13.0 H RBC 3.61 L Hgb Hct RDW 18.8 H Lymph % (Auto) 13.1 L Wright # (Auto) 0.9 H Seg Neutrophils % 77.6 H Seg Neuts % (Manual) Lymphocytes % (Manual) Seg Neutrophils # 10.0 H Seg Neutrophils # Man Lymphocytes # (Manual) Monocytes # (Manual) Basophils # (Manual) D-Dimer ABG pH POC ABG pCO2 POC ABG pO2 ABG Hemoglobin ABG Oxyhemoglobin ABG Sodium ABG Potassium ABG Chloride ABG Glucose Carboxyhemoglobin Sodium Chloride Carbon Dioxide 31 H BUN 21 H Creatinine Glucose 152 H POC Glucose 121 H Calcium Ferritin Lactate Dehydrogenase Total Creatine Kinase CK-MB (CK-2) C-Reactive Protein Total Protein Albumin Arterial Blood Glucose Urine WBC (Auto) Vancomycin Trough Coronavirus (PCR) 12/05/20 12/05/20 12/06/20 17:31 23:37 04:00 WBC RBC Hgb Hct RDW Lymph % (Auto) Wright # (Auto) Seg Neutrophils % Seg Neuts % (Manual) Lymphocytes % (Manual) Seg Neutrophils # Seg Neutrophils # Man Lymphocytes # (Manual) Monocytes # (Manual) Basophils # (Manual) D-Dimer ABG pH 7.471 H POC ABG pCO2 POC ABG pO2 75.2 L ABG Hemoglobin 10.4 L ABG Oxyhemoglobin ABG Sodium 133.7 L ABG Potassium ABG Chloride ABG Glucose 120 H Carboxyhemoglobin Sodium Chloride Carbon Dioxide BUN Creatinine Glucose POC Glucose 148 H 133 H Calcium Ferritin Lactate Dehydrogenase Total Creatine Kinase CK-MB (CK-2) C-Reactive Protein Total Protein Albumin Arterial Blood Glucose 120 H Urine WBC (Auto) Vancomycin Trough Coronavirus (PCR) 12/06/20 12/06/20 12/06/20 05:07 05:07 05:09 WBC RBC 3.37 L Hgb 9.4 L Hct 28.4 L RDW 18.3 H Lymph % (Auto) Wright # (Auto) Seg Neutrophils % Seg Neuts % (Manual) Lymphocytes % (Manual) Seg Neutrophils # Seg Neutrophils # Man Lymphocytes # (Manual) Monocytes # (Manual) Basophils # (Manual) D-Dimer ABG pH POC ABG pCO2 POC ABG pO2 ABG Hemoglobin ABG Oxyhemoglobin ABG Sodium ABG Potassium ABG Chloride ABG Glucose Carboxyhemoglobin Sodium Chloride Carbon Dioxide 33 H BUN 25 H Creatinine Glucose 131 H POC Glucose 122 H Calcium Ferritin Lactate Dehydrogenase Total Creatine Kinase CK-MB (CK-2) C-Reactive Protein Total Protein Albumin Arterial Blood Glucose Urine WBC (Auto) Vancomycin Trough Coronavirus (PCR) 12/06/20 12/06/20 12/06/20 11:59 16:17 17:30 WBC RBC Hgb Hct RDW Lymph % (Auto) Wright # (Auto) Seg Neutrophils % Seg Neuts % (Manual) Lymphocytes % (Manual) Seg Neutrophils # Seg Neutrophils # Man Lymphocytes # (Manual) Monocytes # (Manual) Basophils # (Manual) D-Dimer ABG pH POC ABG pCO2 61.8 H POC ABG pO2 180.5 H ABG Hemoglobin ABG Oxyhemoglobin ABG Sodium ABG Potassium ABG Chloride ABG Glucose 142 H Carboxyhemoglobin Sodium Chloride Carbon Dioxide BUN Creatinine Glucose POC Glucose 120 H 114 H Calcium Ferritin Lactate Dehydrogenase Total Creatine Kinase CK-MB (CK-2) C-Reactive Protein Total Protein Albumin Arterial Blood Glucose 142 H Urine WBC (Auto) Vancomycin Trough Coronavirus (PCR) 12/06/20 12/07/20 12/07/20 23:09 04:00 04:00 WBC RBC 3.47 L Hgb 9.5 L Hct 29.5 L RDW 18.7 H Lymph % (Auto) Wright # (Auto) Seg Neutrophils % Seg Neuts % (Manual) Lymphocytes % (Manual) Seg Neutrophils # Seg Neutrophils # Man Lymphocytes # (Manual) Monocytes # (Manual) Basophils # (Manual) D-Dimer ABG pH POC ABG pCO2 55.9 H POC ABG pO2 ABG Hemoglobin 11.6 L ABG Oxyhemoglobin ABG Sodium 135.2 L ABG Potassium 4.7 H ABG Chloride ABG Glucose 141 H Carboxyhemoglobin Sodium Chloride Carbon Dioxide BUN Creatinine Glucose POC Glucose 112 H Calcium Ferritin Lactate Dehydrogenase Total Creatine Kinase CK-MB (CK-2) C-Reactive Protein Total Protein Albumin Arterial Blood Glucose 141 H Urine WBC (Auto) Vancomycin Trough Coronavirus (PCR) 12/07/20 12/07/20 12/07/20 05:00 05:28 12:20 WBC RBC Hgb Hct RDW Lymph % (Auto) Wright # (Auto) Seg Neutrophils % Seg Neuts % (Manual) Lymphocytes % (Manual) Seg Neutrophils # Seg Neutrophils # Man Lymphocytes # (Manual) Monocytes # (Manual) Basophils # (Manual) D-Dimer ABG pH POC ABG pCO2 POC ABG pO2 ABG Hemoglobin ABG Oxyhemoglobin ABG Sodium ABG Potassium ABG Chloride ABG Glucose Carboxyhemoglobin Sodium Chloride 96.6 L Carbon Dioxide 35 H BUN 29 H Creatinine Glucose 148 H POC Glucose 139 H 130 H Calcium Ferritin Lactate Dehydrogenase Total Creatine Kinase CK-MB (CK-2) C-Reactive Protein Total Protein Albumin Arterial Blood Glucose Urine WBC (Auto) Vancomycin Trough Coronavirus (PCR) 12/07/20 12/07/20 12/08/20 16:54 23:15 04:00 WBC RBC Hgb Hct RDW Lymph % (Auto) Wright # (Auto) Seg Neutrophils % Seg Neuts % (Manual) Lymphocytes % (Manual) Seg Neutrophils # Seg Neutrophils # Man Lymphocytes # (Manual) Monocytes # (Manual) Basophils # (Manual) D-Dimer ABG pH POC ABG pCO2 53.4 H POC ABG pO2 ABG Hemoglobin 11.4 L ABG Oxyhemoglobin ABG Sodium ABG Potassium ABG Chloride 96.0 L ABG Glucose 149 H Carboxyhemoglobin Sodium Chloride Carbon Dioxide BUN Creatinine Glucose POC Glucose 121 H 166 H Calcium Ferritin Lactate Dehydrogenase Total Creatine Kinase CK-MB (CK-2) C-Reactive Protein Total Protein Albumin Arterial Blood Glucose 149 H Urine WBC (Auto) Vancomycin Trough Coronavirus (PCR) 12/08/20 12/08/20 12/08/20 05:29 08:33 08:33 WBC 11.2 H RBC 3.64 L Hgb Hct 30.2 L RDW 18.1 H Lymph % (Auto) Wright # (Auto) Seg Neutrophils % Seg Neuts % (Manual) Lymphocytes % (Manual) Seg Neutrophils # Seg Neutrophils # Man Lymphocytes # (Manual) Monocytes # (Manual) Basophils # (Manual) D-Dimer ABG pH POC ABG pCO2 POC ABG pO2 ABG Hemoglobin ABG Oxyhemoglobin ABG Sodium ABG Potassium ABG Chloride ABG Glucose Carboxyhemoglobin Sodium Chloride 96.2 L Carbon Dioxide 33 H BUN 31 H Creatinine Glucose 166 H POC Glucose 128 H Calcium 10.3 H Ferritin Lactate Dehydrogenase Total Creatine Kinase CK-MB (CK-2) C-Reactive Protein Total Protein Albumin Arterial Blood Glucose Urine WBC (Auto) Vancomycin Trough Coronavirus (PCR) 12/08/20 12/08/20 12/09/20 11:53 16:46 00:20 WBC RBC Hgb Hct RDW Lymph % (Auto) Wright # (Auto) Seg Neutrophils % Seg Neuts % (Manual) Lymphocytes % (Manual) Seg Neutrophils # Seg Neutrophils # Man Lymphocytes # (Manual) Monocytes # (Manual) Basophils # (Manual) D-Dimer ABG pH POC ABG pCO2 POC ABG pO2 ABG Hemoglobin ABG Oxyhemoglobin ABG Sodium ABG Potassium ABG Chloride ABG Glucose Carboxyhemoglobin Sodium Chloride Carbon Dioxide BUN Creatinine Glucose POC Glucose 170 H 157 H 164 H Calcium Ferritin Lactate Dehydrogenase Total Creatine Kinase CK-MB (CK-2) C-Reactive Protein Total Protein Albumin Arterial Blood Glucose Urine WBC (Auto) Vancomycin Trough Coronavirus (PCR) 12/09/20 12/09/20 12/09/20 04:00 05:07 05:07 WBC 11.4 H RBC 3.53 L Hgb 9.8 L Hct 29.2 L RDW 17.8 H Lymph % (Auto) Wright # (Auto) Seg Neutrophils % Seg Neuts % (Manual) Lymphocytes % (Manual) Seg Neutrophils # Seg Neutrophils # Man Lymphocytes # (Manual) Monocytes # (Manual) Basophils # (Manual) D-Dimer ABG pH POC ABG pCO2 54.4 H POC ABG pO2 ABG Hemoglobin 10.5 L ABG Oxyhemoglobin ABG Sodium ABG Potassium ABG Chloride ABG Glucose 204 H Carboxyhemoglobin Sodium Chloride Carbon Dioxide 33 H BUN 38 H Creatinine Glucose 189 H POC Glucose Calcium Ferritin Lactate Dehydrogenase Total Creatine Kinase CK-MB (CK-2) C-Reactive Protein Total Protein Albumin Arterial Blood Glucose 204 H Urine WBC (Auto) Vancomycin Trough Coronavirus (PCR) 12/09/20 12/09/20 12/09/20 05:30 11:57 17:33 WBC RBC Hgb Hct RDW Lymph % (Auto) Wright # (Auto) Seg Neutrophils % Seg Neuts % (Manual) Lymphocytes % (Manual) Seg Neutrophils # Seg Neutrophils # Man Lymphocytes # (Manual) Monocytes # (Manual) Basophils # (Manual) D-Dimer ABG pH POC ABG pCO2 POC ABG pO2 ABG Hemoglobin ABG Oxyhemoglobin ABG Sodium ABG Potassium ABG Chloride ABG Glucose Carboxyhemoglobin Sodium Chloride Carbon Dioxide BUN Creatinine Glucose POC Glucose 190 H 153 H 180 H Calcium Ferritin Lactate Dehydrogenase Total Creatine Kinase CK-MB (CK-2) C-Reactive Protein Total Protein Albumin Arterial Blood Glucose Urine WBC (Auto) Vancomycin Trough Coronavirus (PCR) 12/10/20 12/10/20 12/10/20 00:28 03:16 05:03 WBC 11.5 H RBC 3.42 L Hgb 9.4 L Hct 29.3 L RDW 17.9 H Lymph % (Auto) Wright # (Auto) Seg Neutrophils % Seg Neuts % (Manual) Lymphocytes % (Manual) Seg Neutrophils # Seg Neutrophils # Man Lymphocytes # (Manual) Monocytes # (Manual) Basophils # (Manual) D-Dimer ABG pH 7.493 H POC ABG pCO2 POC ABG pO2 71.4 L ABG Hemoglobin 9.9 L ABG Oxyhemoglobin ABG Sodium ABG Potassium ABG Chloride ABG Glucose 181 H Carboxyhemoglobin 0.4 L Sodium Chloride Carbon Dioxide BUN Creatinine Glucose POC Glucose 173 H Calcium Ferritin Lactate Dehydrogenase Total Creatine Kinase CK-MB (CK-2) C-Reactive Protein Total Protein Albumin Arterial Blood Glucose 181 H Urine WBC (Auto) Vancomycin Trough Coronavirus (PCR) 12/10/20 12/10/20 12/10/20 05:03 05:48 11:41 WBC RBC Hgb Hct RDW Lymph % (Auto) Wright # (Auto) Seg Neutrophils % Seg Neuts % (Manual) Lymphocytes % (Manual) Seg Neutrophils # Seg Neutrophils # Man Lymphocytes # (Manual) Monocytes # (Manual) Basophils # (Manual) D-Dimer ABG pH POC ABG pCO2 POC ABG pO2 ABG Hemoglobin ABG Oxyhemoglobin ABG Sodium ABG Potassium ABG Chloride ABG Glucose Carboxyhemoglobin Sodium Chloride Carbon Dioxide BUN 34 H Creatinine Glucose 174 H POC Glucose 176 H 203 H Calcium Ferritin Lactate Dehydrogenase Total Creatine Kinase CK-MB (CK-2) C-Reactive Protein Total Protein Albumin Arterial Blood Glucose Urine WBC (Auto) Vancomycin Trough Coronavirus (PCR) 12/10/20 12/10/20 12/11/20 16:32 23:27 04:00 WBC RBC Hgb Hct RDW Lymph % (Auto) Wright # (Auto) Seg Neutrophils % Seg Neuts % (Manual) Lymphocytes % (Manual) Seg Neutrophils # Seg Neutrophils # Man Lymphocytes # (Manual) Monocytes # (Manual) Basophils # (Manual) D-Dimer ABG pH 7.517 H POC ABG pCO2 POC ABG pO2 ABG Hemoglobin 10.0 L ABG Oxyhemoglobin ABG Sodium ABG Potassium ABG Chloride ABG Glucose 175 H Carboxyhemoglobin 0.3 L Sodium Chloride Carbon Dioxide BUN Creatinine Glucose POC Glucose 148 H 186 H Calcium Ferritin Lactate Dehydrogenase Total Creatine Kinase CK-MB (CK-2) C-Reactive Protein Total Protein Albumin Arterial Blood Glucose 175 H Urine WBC (Auto) Vancomycin Trough Coronavirus (PCR) 12/11/20 12/11/20 12/11/20 05:18 06:05 06:05 WBC RBC 3.19 L Hgb 9.0 L Hct 27.1 L RDW 18.0 H Lymph % (Auto) Wright # (Auto) Seg Neutrophils % Seg Neuts % (Manual) Lymphocytes % (Manual) Seg Neutrophils # Seg Neutrophils # Man Lymphocytes # (Manual) Monocytes # (Manual) Basophils # (Manual) D-Dimer ABG pH POC ABG pCO2 POC ABG pO2 ABG Hemoglobin ABG Oxyhemoglobin ABG Sodium ABG Potassium ABG Chloride ABG Glucose Carboxyhemoglobin Sodium Chloride Carbon Dioxide BUN 33 H Creatinine Glucose 158 H POC Glucose 151 H Calcium Ferritin Lactate Dehydrogenase Total Creatine Kinase CK-MB (CK-2) C-Reactive Protein Total Protein Albumin Arterial Blood Glucose Urine WBC (Auto) Vancomycin Trough Coronavirus (PCR) 12/11/20 12/11/20 12/11/20 12:17 18:07 23:30 WBC RBC Hgb Hct RDW Lymph % (Auto) Wright # (Auto) Seg Neutrophils % Seg Neuts % (Manual) Lymphocytes % (Manual) Seg Neutrophils # Seg Neutrophils # Man Lymphocytes # (Manual) Monocytes # (Manual) Basophils # (Manual) D-Dimer ABG pH POC ABG pCO2 POC ABG pO2 ABG Hemoglobin ABG Oxyhemoglobin ABG Sodium ABG Potassium ABG Chloride ABG Glucose Carboxyhemoglobin Sodium Chloride Carbon Dioxide BUN Creatinine Glucose POC Glucose 163 H 152 H 144 H Calcium Ferritin Lactate Dehydrogenase Total Creatine Kinase CK-MB (CK-2) C-Reactive Protein Total Protein Albumin Arterial Blood Glucose Urine WBC (Auto) Vancomycin Trough Coronavirus (PCR) 12/12/20 12/12/20 12/12/20 04:00 04:27 11:29 WBC RBC Hgb Hct RDW Lymph % (Auto) Wright # (Auto) Seg Neutrophils % Seg Neuts % (Manual) Lymphocytes % (Manual) Seg Neutrophils # Seg Neutrophils # Man Lymphocytes # (Manual) Monocytes # (Manual) Basophils # (Manual) D-Dimer ABG pH 7.453 H POC ABG pCO2 POC ABG pO2 79.3 L ABG Hemoglobin 9.3 L ABG Oxyhemoglobin ABG Sodium ABG Potassium ABG Chloride ABG Glucose 159 H Carboxyhemoglobin Sodium Chloride Carbon Dioxide BUN Creatinine Glucose POC Glucose 146 H 135 H Calcium Ferritin Lactate Dehydrogenase Total Creatine Kinase CK-MB (CK-2) C-Reactive Protein Total Protein Albumin Arterial Blood Glucose 159 H Urine WBC (Auto) Vancomycin Trough Coronavirus (PCR) 12/12/20 12/12/20 12/12/20 17:31 18:47 18:47 WBC RBC 3.38 L Hgb 9.3 L Hct 29.3 L RDW 18.8 H Lymph % (Auto) Wright # (Auto) Seg Neutrophils % Seg Neuts % (Manual) Lymphocytes % (Manual) Seg Neutrophils # Seg Neutrophils # Man Lymphocytes # (Manual) Monocytes # (Manual) Basophils # (Manual) D-Dimer ABG pH POC ABG pCO2 POC ABG pO2 ABG Hemoglobin ABG Oxyhemoglobin ABG Sodium ABG Potassium ABG Chloride ABG Glucose Carboxyhemoglobin Sodium Chloride Carbon Dioxide BUN Creatinine Glucose POC Glucose 145 H Calcium Ferritin Lactate Dehydrogenase Total Creatine Kinase CK-MB (CK-2) C-Reactive Protein Total Protein Albumin Arterial Blood Glucose Urine WBC (Auto) Vancomycin Trough 30.6 H Coronavirus (PCR) 12/12/20 12/13/20 12/13/20 23:38 04:52 04:52 WBC RBC 3.24 L Hgb 9.0 L Hct 27.6 L RDW 17.9 H Lymph % (Auto) [place] # (Auto) Seg Neutrophils % Seg Neuts % (Manual) Lymphocytes % (Manual) Seg Neutrophils # Seg Neutrophils # Man Lymphocytes # (Manual) Monocytes # (Manual) Basophils # (Manual) D-Dimer ABG pH POC ABG pCO2 POC ABG pO2 ABG Hemoglobin ABG Oxyhemoglobin ABG Sodium ABG Potassium ABG Chloride ABG Glucose Carboxyhemoglobin Sodium Chloride Carbon Dioxide BUN 27 H Creatinine Glucose 157 H POC Glucose 123 H Calcium Ferritin Lactate Dehydrogenase Total Creatine Kinase CK-MB (CK-2) C-Reactive Protein Total Protein Albumin 2.9 L Arterial Blood Glucose Urine WBC (Auto) Vancomycin Trough Coronavirus (PCR) 12/13/20 12/13/20 12/13/20 05:22 11:38 17:36 WBC RBC Hgb Hct RDW Lymph % (Auto) [place] # (Auto) Seg Neutrophils % Seg Neuts % (Manual) Lymphocytes % (Manual) Seg Neutrophils # Seg Neutrophils # Man Lymphocytes # (Manual) Monocytes # (Manual) Basophils # (Manual) D-Dimer ABG pH POC ABG pCO2 POC ABG pO2 ABG Hemoglobin ABG Oxyhemoglobin ABG Sodium ABG Potassium ABG Chloride ABG Glucose Carboxyhemoglobin Sodium Chloride Carbon Dioxide BUN Creatinine Glucose POC Glucose 176 H 140 H 139 H Calcium Ferritin Lactate Dehydrogenase Total Creatine Kinase CK-MB (CK-2) C-Reactive Protein Total Protein Albumin Arterial Blood Glucose Urine WBC (Auto) Vancomycin Trough Coronavirus (PCR) 12/14/20 12/14/20 12/14/20 00:14 06:11 08:30 WBC RBC Hgb Hct RDW Lymph % (Auto) [place] # (Auto) Seg Neutrophils % Seg Neuts % (Manual) Lymphocytes % (Manual) Seg Neutrophils # Seg Neutrophils # Man Lymphocytes # (Manual) Monocytes # (Manual) Basophils # (Manual) D-Dimer ABG pH 7.494 H POC ABG pCO2 POC ABG pO2 168.3 H ABG Hemoglobin 10.6 L ABG Oxyhemoglobin 98.8 H ABG Sodium ABG Potassium ABG Chloride ABG Glucose 136 H Carboxyhemoglobin 0.3 L Sodium Chloride Carbon Dioxide BUN Creatinine Glucose POC Glucose 145 H 144 H Calcium Ferritin Lactate Dehydrogenase Total Creatine Kinase CK-MB (CK-2) C-Reactive Protein Total Protein Albumin Arterial Blood Glucose 136 H Urine WBC (Auto) Vancomycin Trough Coronavirus (PCR) 12/14/20 12/14/20 12/14/20 11:43 17:54 23:34 WBC RBC Hgb Hct RDW Lymph % (Auto) [place] # (Auto) Seg Neutrophils % Seg Neuts % (Manual) Lymphocytes % (Manual) Seg Neutrophils # Seg Neutrophils # Man Lymphocytes # (Manual) Monocytes # (Manual) Basophils # (Manual) D-Dimer ABG pH POC ABG pCO2 POC ABG pO2 ABG Hemoglobin ABG Oxyhemoglobin ABG Sodium ABG Potassium ABG Chloride ABG Glucose Carboxyhemoglobin Sodium Chloride Carbon Dioxide BUN Creatinine Glucose POC Glucose 146 H 133 H 139 H Calcium Ferritin Lactate Dehydrogenase Total Creatine Kinase CK-MB (CK-2) C-Reactive Protein Total Protein Albumin Arterial Blood Glucose Urine WBC (Auto) Vancomycin Trough Coronavirus (PCR) 12/14/20 12/15/20 Unknown 05:55 WBC RBC Hgb Hct RDW Lymph % (Auto) [place] # (Auto) Seg Neutrophils % Seg Neuts % (Manual) Lymphocytes % (Manual) Seg Neutrophils # Seg Neutrophils # Man Lymphocytes # (Manual) Monocytes # (Manual) Basophils # (Manual) D-Dimer ABG pH POC ABG pCO2 POC ABG pO2 ABG Hemoglobin ABG Oxyhemoglobin ABG Sodium ABG Potassium ABG Chloride ABG Glucose Carboxyhemoglobin Sodium Chloride Carbon Dioxide BUN 19 H Creatinine Glucose 146 H POC Glucose 121 H Calcium Ferritin Lactate Dehydrogenase Total Creatine Kinase CK-MB (CK-2) C-Reactive Protein Total Protein Albumin Arterial Blood Glucose Urine WBC (Auto) Vancomycin Trough Coronavirus (PCR) Allied health notes reviewed: nursing
--- NOTE | 2020-12-15 12:33 | Cat Scan Report ---
. CT head/brain wo con INDICATION / CLINICAL INFORMATION: 40 years Female; Acute Encephalopathy; Confusion. TECHNIQUE: Routine CT head without contrast. All CT scans at this location are performed using CT dos e reduction for ALARA by means of automated exposure control. COMPARISON: None. FINDINGS: BRAIN / INTRACRANIAL CONTENTS: The motion and positioning degrade the image quality. However, the bra in parenchyma appears to demonstrate appropriate attenuation. The ventricular system is within normal limits in size and configuration. There is no clear CT evidence of acute intracranial hemorrhage or significant mass effect. ORBITS: No significant abnormality of visualized orbits. SINUSES / MASTOIDS: There is mild opacification involving sphenoid sinuses at. There is scattered opa cification within the mastoid air cells bilaterally. CRANIOCERVICAL JUNCTION: No significant abnormality. ADDITIONAL FINDINGS: None. IMPRESSION: 1. There is no clear CT evidence of acute intracranial process. 2. There is opacification involving mastoid air cells and sphenoid sinuses as described. Signer Name: Alexander Ríos MD Signed: 12/15/2020 12:29 PM Workstation Name: [id number]
--- NOTE | 2020-12-15 12:43 | Progress Note ---
Assessment and Plan Assessment and plan: #Acute hypoxic respiratory failure -self extubated 12/15, currently maintaining saturation on nasal cannula -continue pepcid for GI ppx -will continue to monitor #Sepsis -blood cultures 12/11 no growth to date, UCx also negative -s/p vancomycin, continue zosyn for 5 days total (last day 917) #Severe tracheal stenosis -History of intubation over 40 times #Angioedema -history of hereditary idiopathic angioedema alpha gal syndrome -will need outpatient allergy/ENT follow-up #Hypertension - hypertensive urgency on presentation, resolved - continue HCTZ #Status post cardiac arrest -12/06 respiratory arrest #History type 2 diabetes -POC glucose q6h, continue sliding scale insulin -Passed follow eval, will start solid diet #NINI -Resolved Disposition Plan: transfer to med/surg Total Time Spent with Patient (Minutes): 30 minutes History Interval history: Stable on nasal cannula. Patient mildly confused. Denies shortness of breath, throat pain no swelling. Hospitalist Physical - Physical exam Narrative exam: GENERAL: Obese woman. Lying in bed alert. HEENT: Nasal cannula in place at 3 L/min CHEST/LUNGS: Coarse breath sounds bilaterally. HEART: No murmur, rubs or gallops appreciated. ABDOMEN: +BS. NT/ND. NEURO: No focal motor deficit. Follows all commands. EXTREMITIES: No cyanosis, cubbing or edema. PSYCH: Appropriate affect. - Constitutional Vitals: Temp Pulse Resp BP Pulse Ox 98 F 60 25 H 113/48 97 12/15/20 11:46 12/15/20 11:00 12/15/20 11:00 12/15/20 11:00 12/15/20 11:00 General appearance: Present: no acute distress, well-nourished, obese, other (Intubated on vent, sedated but follows commands) HEART Score - HEART Score Troponin: Troponin T < 0.010 ng/mL (0.00-0.029) 11/30/20 14:12 Results - Labs CBC & Chem 7: 12/13/20 04:52 12/14/20 Unknown Labs: Laboratory Last Values WBC 9.1 K/mm3 (4.5-11.0) 12/13/20 04:52 RBC 3.24 M/mm3 (3.65-5.03) L 12/13/20 04:52 Hgb 9.0 gm/dl (10.1-14.3) L 12/13/20 04:52 Hct 27.6 % (30.3-42.9) L 12/13/20 04:52 MCV 85 fl (79-97) 12/13/20 04:52 MCH 28 pg (28-32) 12/13/20 04:52 MCHC 33 % (30-34) 12/13/20 04:52 RDW 17.9 % (13.2-15.2) H 12/13/20 04:52 Plt Count 222 K/mm3 (140-440) 12/13/20 04:52 Lymph % (Auto) 13.1 % (13.4-35.0) L 12/05/20 11:04 [place] % (Auto) 6.7 % (0.0-7.3) 12/05/20 11:04 Eos % (Auto) 2.2 % (0.0-4.3) 12/05/20 11:04 Baso % (Auto) 0.4 % (0.0-1.8) 12/05/20 11:04 Lymph # (Auto) 1.7 K/mm3 (1.2-5.4) 12/05/20 11:04 [place] # (Auto) 0.9 K/mm3 (0.0-0.8) H 12/05/20 11:04 Eos # (Auto) 0.3 K/mm3 (0.0-0.4) 12/05/20 11:04 Baso # (Auto) 0.1 K/mm3 (0.0-0.1) 12/05/20 11:04 Add Manual Diff Complete 12/04/20 05:40 Total Counted 100 12/04/20 05:40 Seg Neutrophils % 77.6 % (40.0-70.0) H 12/05/20 11:04 Seg Neuts % (Manual) 74.0 % (40.0-70.0) H 12/04/20 05:40 Band Neutrophils % 16.0 % 12/04/20 05:40 Lymphocytes % (Manual) 2.0 % (13.4-35.0) L 12/04/20 05:40 Monocytes % (Manual) 5.0 % (0.0-7.3) 12/04/20 05:40 Eosinophils % (Manual) 2.0 % (0.0-4.3) 12/04/20 05:40 Basophils % (Manual) 1.0 % (0.0-1.8) 12/04/20 05:40 Nucleated RBC % Not Reportable 12/04/20 05:40 Seg Neutrophils # 10.0 K/mm3 (1.8-7.7) H 12/05/20 11:04 Seg Neutrophils # Man 16.1 K/mm3 (1.8-7.7) H 12/04/20 05:40 Band Neutrophils # 3.5 K/mm3 12/04/20 05:40 Lymphocytes # (Manual) 0.4 K/mm3 (1.2-5.4) L 12/04/20 05:40 Abs React Lymphs (Man) 0.0 K/mm3 12/04/20 05:40 Monocytes # (Manual) 1.1 K/mm3 (0.0-0.8) H 12/04/20 05:40 Eosinophils # (Manual) 0.4 K/mm3 (0.0-0.4) 12/04/20 05:40 Basophils # (Manual) 0.2 K/mm3 (0.0-0.1) H 12/04/20 05:40 Metamyelocytes # 0.0 K/mm3 12/04/20 05:40 Myelocytes # 0.0 K/mm3 12/04/20 05:40 Promyelocytes # 0.0 K/mm3 12/04/20 05:40 Blast Cells # 0.0 K/mm3 12/04/20 05:40 WBC Morphology Not Reportable 12/04/20 05:40 Hypersegmented Neuts Not Reportable 12/04/20 05:40 Hyposegmented Neuts Not Reportable 12/04/20 05:40 Hypogranular Neuts Not Reportable 12/04/20 05:40 Smudge Cells Not Reportable 12/04/20 05:40 Toxic Granulation Not Reportable 12/04/20 05:40 Toxic Vacuolation Not Reportable 12/04/20 05:40 Dohle Bodies Not Reportable 12/04/20 05:40 Pelger-Huet Anomaly Not Reportable 12/04/20 05:40 Solomon Rods Not Reportable 12/04/20 05:40 Platelet Estimate Not Reportable 12/04/20 05:40 Clumped Platelets 1+ 12/04/20 05:40 Plt Clumps, EDTA Not Reportable 12/04/20 05:40 Large Platelets Not Reportable 12/04/20 05:40 Giant Platelets Not Reportable 12/04/20 05:40 Platelet Satelliting Not Reportable 12/04/20 05:40 Plt Morphology Comment Not Reportable 12/04/20 05:40 RBC Morphology Normal 12/04/20 05:40 Dimorphic RBCs Not Reportable 12/04/20 05:40 Polychromasia Not Reportable 12/04/20 05:40 Hypochromasia Not Reportable 12/04/20 05:40 Poikilocytosis Not Reportable 12/04/20 05:40 Anisocytosis Not Reportable 12/04/20 05:40 Microcytosis Not Reportable 12/04/20 05:40 Macrocytosis Not Reportable 12/04/20 05:40 Spherocytes Not Reportable 12/04/20 05:40 Pappenheimer Bodies Not Reportable 12/04/20 05:40 Sickle Cells Not Reportable 12/04/20 05:40 Target Cells Not Reportable 12/04/20 05:40 Tear Drop Cells Not Reportable 12/04/20 05:40 Ovalocytes Not Reportable 12/04/20 05:40 Helmet Cells Not Reportable 12/04/20 05:40 [place] Bodies Not Reportable 12/04/20 05:40 [place] Rings Not Reportable 12/04/20 05:40 [place] Cells Not Reportable 12/04/20 05:40 Bite Cells Not Reportable 12/04/20 05:40 Crenated Cell Not Reportable 12/04/20 05:40 Elliptocytes Not Reportable 12/04/20 05:40 Acanthocytes (Spur) Not Reportable 12/04/20 05:40 Rouleaux Not Reportable 12/04/20 05:40 Hemoglobin C Crystals Not Reportable 12/04/20 05:40 Schistocytes Not Reportable 12/04/20 05:40 Malaria parasites Not Reportable 12/04/20 05:40 Charanjit Bodies Not Reportable 12/04/20 05:40 Hem Pathologist Commnt No 12/04/20 05:40 PT 13.9 Sec. (12.2-14.9) 12/07/20 04:00 INR 1.02 (0.87-1.13) 12/07/20 04:00 D-Dimer 1838.21 ng/mlDDU (0-234) H 12/04/20 10:41 ABG pH 7.494 (7.320-7.450) H 12/14/20 08:30 POC ABG pCO2 36.7 mmHg (32.0-48.0) 12/14/20 08:30 POC ABG pO2 168.3 mmHg (83-108) H 12/14/20 08:30 POC ABG HCO3 27.6 12/14/20 08:30 ABG O2 Saturation 99.4 (0-100) 12/14/20 08:30 POC ABG Base Excess 4.2 12/14/20 08:30 ABG Hemoglobin 10.6 (12.0-17.5) L 12/14/20 08:30 ABG Oxyhemoglobin 98.8 (94-98) H 12/14/20 08:30 ABG Methemoglobin 0.3 (0.0-1.5) 12/14/20 08:30 ABG Sodium 138.2 mmol/L (136.0-145.0) 12/14/20 08:30 ABG Potassium 3.7 mmol/L (3.40-4.50) 12/14/20 08:30 ABG Chloride 101.0 mmol/L (98-107) 12/14/20 08:30 ABG Glucose 136 mg/dL (65-95) H 12/14/20 08:30 Carboxyhemoglobin 0.3 (0.5-1.5) L 12/14/20 08:30 FiO2 % 40.0 12/14/20 08:30 Sodium 140 mmol/L (137-145) 12/14/20 Unknown Potassium 4.2 mmol/L (3.6-5.0) 12/14/20 Unknown Chloride 101.1 mmol/L (98-107) 12/14/20 Unknown Carbon Dioxide 28 mmol/L (22-30) 12/14/20 Unknown Anion Gap 15 mmol/L 12/14/20 Unknown BUN 19 mg/dL (7-17) H 12/14/20 Unknown Creatinine 0.6 mg/dL (0.6-1.2) 12/14/20 Unknown Estimated GFR > 60 ml/min 12/14/20 Unknown BUN/Creatinine Ratio 32 % 12/14/20 Unknown Glucose 146 mg/dL (65-100) H 12/14/20 Unknown POC Glucose 152 mg/dL (70-105) H 12/15/20 11:34 Calcium 9.5 mg/dL (8.4-10.2) 12/14/20 Unknown Phosphorus TNR 12/12/20 14:33 Magnesium 2.10 mg/dL (1.7-2.3) 12/11/20 06:05 Ferritin 399.0 ng/mL (10.0-200.0) H 12/04/20 10:41 Total Bilirubin 0.30 mg/dL (0.1-1.2) 12/13/20 04:52 Direct Bilirubin < 0.2 mg/dL (0-0.2) 11/29/20 07:48 Indirect Bilirubin 0.0 mg/dL 11/29/20 07:48 AST 16 units/L (5-40) 12/13/20 04:52 ALT 28 units/L (7-56) 12/13/20 04:52 Alkaline Phosphatase 59 units/L (35-129) 12/13/20 04:52 Lactate Dehydrogenase 386 units/L (91-180) H 12/04/20 10:41 Total Creatine Kinase 1132 units/L (30-135) H 11/30/20 14:12 CK-MB (CK-2) 14.6 ng/mL (0.0-4.0) H 11/30/20 14:12 CK-MB (CK-2) Rel Index 1.2 (0-4) 11/30/20 14:12 Troponin T < 0.010 ng/mL (0.00-0.029) 11/30/20 14:12 C-Reactive Protein 34.30 mg/dL (0.00-1.30) H 12/04/20 10:41 Total Protein 6.5 g/dL (6.3-8.2) 12/13/20 04:52 Albumin 2.9 g/dL (3.9-5) L 12/13/20 04:52 Albumin/Globulin Ratio 0.8 % 12/13/20 04:52 HCG, Qual Negative (Negative) 11/29/20 07:48 Arterial Blood Glucose 136 mg/dL (65-95) H 12/14/20 08:30 Arterial Blood Ionized Calcium 4.7 mg/dL (4.6-5.3) 12/14/20 08:30 Urine Color Colorless (Yellow) 12/11/20 12:22 Urine Turbidity Clear (Clear) 12/11/20 12:22 Urine pH 5.0 (5.0-7.0) 12/11/20 12:22 Ur Specific [place] 1.005 (1.003-1.030) 12/11/20 12:22 Urine Protein <15 mg/dl mg/dL (Negative) 12/11/20 12:22 Urine Glucose (UA) Neg mg/dL (Negative) 12/11/20 12: Urine Ketones Neg mg/dL (Negative) 12/11/20 12:22 Urine Blood Sm (Negative) 12/11/20 12:22 Urine Nitrite Neg (Negative) 12/11/20 12:22 Urine Bilirubin Neg (Negative) 12/11/20 12:22 Urine Urobilinogen < 2.0 mg/dL (<2.0) 12/11/20 12:22 Ur Leukocyte Esterase Neg (Negative) 12/11/20 12:22 Urine WBC (Auto) < 1.0 /HPF (0.0-6.0) 12/11/20 12:22 Urine RBC (Auto) 11.0 /HPF (0.0-6.0) 12/11/20 12:22 U Epithel Cells (Auto) 1.0 /HPF (0-13.0) 12/11/20 12:22 Urine Bacteria (Auto) 1+ /HPF (Negative) 12/11/20 12:22 Urine WBC Clumps 3+ /HPF 12/04/20 07:30 RBC Casts 1 /LPF 12/11/20 12:22 WBC Casts 17 /LPF 12/04/20 07:30 Urine Mucus Few /HPF 12/11/20 12:22 Nasal Screen MRSA (PCR) Negative (Negative) 12/13/20 10:24 Vancomycin Trough 30.6 ug/mL (5.0-20.0) H 12/12/20 18:47 Random Vancomycin 7.9 ug/mL (0-40.0) 12/14/20 05:58 Coronavirus (PCR) Positive (Negative) A 12/03/20 08:00 Microbiology: Microbiology 12/11/20 21:19 Tracheal Aspirate Sputum Culture - Final 12/11/20 12:54 Peripheral/Venous Blood Culture - Preliminary NO GROWTH AFTER 72 HOURS 12/11/20 12:54 Peripheral/Venous Blood Culture - Preliminary NO GROWTH AFTER 72 HOURS Dash/IV: Voiding Method Indwelling Catheter Active Medications - Current Medications Current Medications: Generic Name Dose Route Start Last Admin Trade Name Freq PRN Reason Stop Dose Admin Acetaminophen 650 mg 12/04/20 00:39 12/10/20 05:24 Acetaminophen 325 Mg Tab PO 650 mg Q6H PRN Administration Fever >101 Albuterol 2.5 mg 11/29/20 15:22 Albuterol 2.5 Mg/3 Ml Nebu IH Q4HRT PRN Shortness Of Breath Albuterol/Ipratropium 1 ampul 12/07/20 20:00 12/15/20 10:27 Ipratropium/Albuterol Sulfate 3 Ml Ampul.Neb IH Not Given Q12HRT KRYSTAL Lipase/Protease/Amylase 1 each 11/29/20 15:23 Lipase 10,500/Protease 25,000/Amylase 43,750 (Units) Dr Ariza FEEDTUBE PRN PRN For Clogged Feeding Tube Ascorbic Acid 500 mg 12/04/20 22:00 12/15/20 11:35 Ascorbic Acid 500 Mg Tab PO Not Given BID KRYSTAL Dextrose 50 ml 12/05/20 10:34 Dextrose 50% In Water (25gm) 50 Ml Syringe IV Q30MIN PRN Hypoglycemia Protocol Doxepin HCl 75 mg 12/14/20 22:00 12/15/20 11:35 Doxepin 25 Mg Cap PO Not Given BID KRYSTAL Famotidine 20 mg 11/30/20 15:00 12/15/20 11:35 Famotidine 20 Mg/2 Ml Inj IV Not Given BID KRYSTAL Fondaparinux 2.5 mg 11/29/20 22:00 12/14/20 21:45 Fondaparinux 2.5 Mg/0.5 Ml Inj SUB-Q 2.5 mg Q24H KRYSTAL Administration Gabapentin 600 mg 11/30/20 17:00 12/15/20 11:35 Gabapentin 500 Mg/10 Ml Oral Liqd PO Not Given BID KRYSTAL Glycopyrrolate 2 mg 12/13/20 20:00 12/15/20 08:37 Glycopyrrolate 2 Mg Tab PO Not Given TID KRYSTAL Hydralazine HCl 5 mg 12/15/20 03:14 12/15/20 03:51 Hydralazine 20 Mg/1 Ml Inj IV 5 mg Q4HR PRN Administration Increased Blood Pressure Hydrochlorothiazide 12.5 mg 12/10/20 10:00 12/15/20 11:35 Hydrochlorothiazide 12.5 Mg Cap PO Not Given QDAY [facility] Hydrophilic Ointment 1 applic 12/01/20 08:54 Lip Therapy Vaseline TP Q2HR PRN Dry Lips Dexmedetomidine HCl 400 mcg/ 104 mls @ 6.885 mls/hr 12/08/20 16:00 12/15/20 08:46 Sodium Chloride IV 1 mcg/kg/hr TITRATE KRYSTAL 34.424 mls/hr Administration Protocol 0.2 MCG/KG/HR Piperacillin Sod/Tazobactam Sod 4.5 gm in 100 mls @ 200 mls/hr 12/13/20 12:00 12/15/20 08:36 Zosyn/Ns 4.5gm/100ml IV 12/16/20 20:29 Not Given Q8H [facility] Protocol Insulin Human Regular 0 units 12/05/20 12:00 12/15/20 08:35 Insulin Regular, Human 100 Units/1 Ml SUB-Q Not Given Q6HR [facility] Protocol Montelukast Sodium 10 mg 11/29/20 22:00 12/14/20 22:32 Montelukast 10 Mg Tab PO Not Given HS [facility] Multi-Ingred Cream/Lotion/Oil/Oint 1 applic 12/01/20 08:54 Mineral Oil/Petrolatum, White Ophth Oint 3.5 Gm OU Q4HR PRN Dry Eye(s) Quetiapine Fumarate 150 mg 12/12/20 14:00 12/15/20 08:36 Quetiapine 100 Mg Tab PO Not Given Q8H [facility] Scopolamine 1 each 12/13/20 18:00 12/13/20 17:48 Scopolamine Transdermal Patch 72 Hr TD 1 each Q3D KRYSTAL Administration Senna/Docusate Sodium 1 tab 11/29/20 10:00 12/15/20 11:35 Sennosides/Docusate Sodium 8.6/50 Mg Tab FEEDTUBE Not Given BID [facility] Simple Syrup 15 ml 11/29/20 15:23 Simple Syrup 15 Ml FEEDTUBE PRN PRN Hypoglycemia Simple Syrup 30 ml 11/29/20 15:23 Simple Syrup 15 Ml FEEDTUBE PRN PRN Hypoglycemia Sodium Bicarbonate 325 mg 11/29/20 15:23 Sodium Bicarbonate 325 Mg Tab FEEDTUBE PRN PRN For Clogged Feeding Tube Zinc Sulfate 220 mg 12/05/20 10:00 12/15/20 11:35 Zinc Sulfate 220 Mg Cap PO Not Given QDAY KRYSTAL Nutrition/Malnutrition Assess - Dietary Evaluation Nutrition/Malnutrition Findings: Nutrition Notes Start: 11/30/20 09:03 Freq: Status: Active Protocol: Document 12/13/20 11:20 (Rec: 12/13/20 11:23 [id number]) Nutrition Notes Initial or Follow up Reassessment Current Diagnosis Respiratory Failure Other Pertinent Diagnosis allergic reaction, alpha gal, hx HTN Current Diet Vital HP at 65 ml/hr Labs/Tests BUN 27 BG 157 Pertinent Medications Zinc Vitamin C Height 5 ft 6 in Weight 132.4 kg [place] Body Weight (kg) 59.09 BMI 47.1 Weight Status Morbidly Obese Subjective/Other Information Pt tolerating TF at goal rate. No signs of intolerance noted . Percent of energy/protein needs met: 84%/91% Burn Absent Trauma Absent Difficulty In Swallowing Current % PO Negligible #1 Nutrition Diagnosis Inadequate oral intake Diagnosis Progress(for reassessment Continues documentation) Is patient on ventilator? Yes Is Patient Ambulatory and/or Out of Bed No REE-([facility]-confined to bed) 2421.060 Kcal/Kg value to use for calculation 14 Approximate Energy Requirements Using 1854 kcal/Kg Calculation Used for Recommendations Kcal/kg Additional Notes Protein needs: 2.5 g/kg IBW , 148 g Fluid needs: 1ml/kcal Nutrition Intervention Change Diet Order: continue Nutrition Support: Vital High Protein at 65 ml/hr flush 45 ml q4h Kcal 1,560 Protein (gm) 135 Fluid (mL) 1,304 Goal #1 Meet at least 75% of protein and kcal needs via TF Anticipated Discharge Needs: Unable to determine at this time Follow-Up By: 12/20/20 Additional Comments F/u: stable TF, tolerance
--- NOTE | 2020-12-15 16:52 | Progress Note ---
Assessment and Plan Cultures: Today 11/29/2020 usual respiratory malik Blood culture 12/04/2020 no growth Urine culture 12/04/2020 E. coli Blood culture 12/11/2020 no growth today Urine culture 12/11/2020 no growth Sputum culture 12/11/2020 usual respiratory malik MRSA PCR negative A/P: 40-year-old female past medical history of severe allergic reactions, morbid obesity, hypertension admitted with COVID-19 and respiratory failure #Sepsis: Remains with low-grade fever. Likely due to COVID/UTI #Critical COVID-19: has been positive for >3 weeks. No therapy indicated at this time. #Bilateral pneumonia: Possible secondary infection, recent development with new leukocytosis and fevers. #Acute sepsis: Present leukocytosis and fevers. Possibly secondary to pneumonia. #Acute hypoxic respiratory failure: Self extubated, now on room air. #Severe allergic history Recs: -Continue zosyn D4 of 5 -Completed Cefepime for 7 days We will sign off please call if any questions MD [facility] ([facility]) Office [phone] Subjective Date of service: 12/15/20 Principal diagnosis: Acute Hypoxemic Respiratory Failure; Angioedema;Obesity; leukocytosis Interval history: Patient is now on room air. No fever. Objective - Exam Narrative Exam: Physical exam deferred to minimize COVID-19 transmission during pandemic - Constitutional Vitals: Vital Signs Temp Pulse Resp BP Pulse Ox 98 F 60 25 H 113/48 99 12/15/20 11:46 12/15/20 11:00 12/15/20 11:00 12/15/20 11:00 12/15/20 14:54 Temperature -Last 24 Hours Temperature 98 F Temperature 99.6 F Temperature 99.3 F Temperature 99.0 F Temperature 98.9 F - Labs CBC & Chem 7: 12/13/20 04:52 12/14/20 Unknown Labs: Abnormal lab results 12/14/20 12/14/20 12/15/20 Range/Units 17:54 23:34 05:55 POC Glucose 133 H 139 H 121 H (70-105) mg/dL 12/15/20 Range/Units 11:34 POC Glucose 152 H (70-105) mg/dL
[2020-12-15] MEDS ORDERED: ONDANSETRON 4 MG/2 ML INJ IV PRN (17:50)
[2020-12-15] MEDS ORDERED: MORPHINE 2 MG/1 ML INJ IV PRN (18:23)
--- NOTE | 2020-12-15 20:21 | Progress Note ---
Assessment and Plan 40 yo female with htn, migraine d/o, alpha gal syndrome, wh presnted initially with concerns for an allergic reaction. She is noted with encephalopathy in the setting of underlying infection/inflammation. She underwent a LP which showed wbc 25 and 92% lymphs. She continues to remain encephalopathic. Per RN, the fentanly was turned off this morning at 11 am. Noted with no clinical seizure activity. 1. Acute Metabolic Encephalopathy - in the setting of underlying infection/inflammation; consider underlying metabolic derangements including endocrine/nutritional, per primary team. 2. Toxic Encephalopathy - resolved at present. 3. Acute Ischemic Stroke - nonfocal exam at present, see #1. 4. Seizure - no clinical events noted at presents and exam is reassuring for less chances of nonconvuslive status epilepticus. 5. Encephalitis / Vasculitis - if patient shows any evidence of worsening, recommend MRI brain w/ wo contrast; CTA Head w/ wo contrast (vs. MRA Head w/o contrast); if imaging is unremarkable. 6. Complex case with risk of high morbidity. Marco Samano MD Neurology [id number] Subjective Date of service: 12/15/20 Principal diagnosis: Acute Hypoxemic Respiratory Failure; Angioedema;Obesity; leukocytosis Interval history: Patient was seen in the hallway en route to a study. No clinical seizure activity noted. Objective - Exam Narrative Exam: Gen: nad, well-nourished; Head: normocephalic; Eyes: no gaze deviation; no ptosis appreciated; ENT: normal vocalization; CVS: appears warm and well-perfused; Pulm: no respiratory distress; GI: appears non-distended; Ext: no cyanosis at distal upper extremities; Skin: no acute rash at distal upper extremities; Heme: no bruising or ecchymosis at distal upper extremities; Neuro: alert, oriented to name, , hospital name, year (corrected from 2000 to 2020 by self), not age, not month, CN 2 - visual tracking intact, CN 3, 4, 6 - latearl eye movements intact, CN 5/7 - blinks spontaneously, CN 9/10 - swallowing noted, CN 11/12 - shoulder movement symmetric w/ tongue appearing midline; Motor/Sensory - at least 2/5 at BUEs; Cerebellar/Gait - pt cannot cooperate secondary to generalized weakness - Vital Sign Vital Signs - 12hr 0912/15/20 12/15/20 09:00 10:00 11:00 Temperature Pulse Rate 52 L 56 L 60 Respiratory 22 21 25 H Rate Blood Pressure 122/51 112/54 113/48 O2 Sat by Pulse 100 100 97 Oximetry 12/15/20 12/15/20 12/15/20 11:46 12:00 14:54 Temperature 98 F Pulse Rate Respiratory Rate Blood Pressure O2 Sat by Pulse 100 99 Oximetry 12/15/20 16:00 Temperature Pulse Rate 60 Respiratory Rate Blood Pressure O2 Sat by Pulse 100 Oximetry - Laboratory Findings CBC and BMP: 12/13/20 04:52 12/14/20 Unknown Abnormal Lab Findings: Abnormal Labs 11/29/20 11/29/20 11/29/20 07:48 07:48 07:48 WBC 11.3 H RBC Hgb Hct RDW 18.0 H Lymph % (Auto) Riley # (Auto) Seg Neutrophils % Seg Neuts % (Manual) Lymphocytes % (Manual) Seg Neutrophils # 7.9 H Seg Neutrophils # Man Lymphocytes # (Manual) Monocytes # (Manual) Basophils # (Manual) D-Dimer ABG pH POC ABG pCO2 POC ABG pO2 ABG Hemoglobin ABG Oxyhemoglobin ABG Sodium ABG Potassium ABG Chloride ABG Glucose Carboxyhemoglobin Sodium 135 L Chloride Carbon Dioxide BUN Creatinine Glucose 204 H POC Glucose Calcium Ferritin Lactate Dehydrogenase Total Creatine Kinase CK-MB (CK-2) C-Reactive Protein Total Protein Albumin 3.7 L Arterial Blood Glucose Urine WBC (Auto) Vancomycin Trough Coronavirus (PCR) 11/29/20 11/30/20 11/30/20 11:37 04:27 11:22 WBC RBC Hgb Hct RDW Lymph % (Auto) Riley # (Auto) Seg Neutrophils % Seg Neuts % (Manual) Lymphocytes % (Manual) Seg Neutrophils # Seg Neutrophils # Man Lymphocytes # (Manual) Monocytes # (Manual) Basophils # (Manual) D-Dimer ABG pH 7.318 L POC ABG pCO2 POC ABG pO2 76.1 L 196.4 H ABG Hemoglobin 11.96 L ABG Oxyhemoglobin 92.4 L 98.5 H ABG Sodium 133.7 L ABG Potassium 5.0 H ABG Chloride ABG Glucose 171 H Carboxyhemoglobin 2.5 H Sodium Chloride Carbon Dioxide BUN Creatinine Glucose POC Glucose 157 H Calcium Ferritin Lactate Dehydrogenase Total Creatine Kinase CK-MB (CK-2) C-Reactive Protein Total Protein Albumin Arterial Blood Glucose 171 H Urine WBC (Auto) Vancomycin Trough Coronavirus (PCR) 11/30/20 11/30/20 11/30/20 14:12 17:19 23:42 WBC RBC Hgb Hct RDW Lymph % (Auto) Riley # (Auto) Seg Neutrophils % Seg Neuts % (Manual) Lymphocytes % (Manual) Seg Neutrophils # Seg Neutrophils # Man Lymphocytes # (Manual) Monocytes # (Manual) Basophils # (Manual) D-Dimer ABG pH POC ABG pCO2 POC ABG pO2 ABG Hemoglobin ABG Oxyhemoglobin ABG Sodium ABG Potassium ABG Chloride ABG Glucose Carboxyhemoglobin Sodium Chloride Carbon Dioxide BUN Creatinine Glucose POC Glucose 135 H 121 H Calcium Ferritin Lactate Dehydrogenase Total Creatine Kinase 1132 H CK-MB (CK-2) 14.6 H C-Reactive Protein Total Protein Albumin Arterial Blood Glucose Urine WBC (Auto) Vancomycin Trough Coronavirus (PCR) 12/01/20 12/01/20 12/01/20 03:30 04:21 06:16 WBC RBC Hgb Hct RDW Lymph % (Auto) Riley # (Auto) Seg Neutrophils % Seg Neuts % (Manual) Lymphocytes % (Manual) Seg Neutrophils # Seg Neutrophils # Man Lymphocytes # (Manual) Monocytes # (Manual) Basophils # (Manual) D-Dimer ABG pH POC ABG pCO2 POC ABG pO2 37.6 L 76.2 L ABG Hemoglobin 10.4 L 10.8 L ABG Oxyhemoglobin 76.4 L 93.7 L ABG Sodium 112.8 L 110.9 L ABG Potassium ABG Chloride ABG Glucose 103 H 107 H Carboxyhemoglobin Sodium Chloride Carbon Dioxide BUN Creatinine Glucose POC Glucose 129 H Calcium Ferritin Lactate Dehydrogenase Total Creatine Kinase CK-MB (CK-2) C-Reactive Protein Total Protein Albumin Arterial Blood Glucose 103 H 107 H Urine WBC (Auto) Vancomycin Trough Coronavirus (PCR) 12/02/20 12/02/20 12/02/20 04:00 12:02 17:10 WBC RBC Hgb Hct RDW Lymph % (Auto) Riley # (Auto) Seg Neutrophils % Seg Neuts % (Manual) Lymphocytes % (Manual) Seg Neutrophils # Seg Neutrophils # Man Lymphocytes # (Manual) Monocytes # (Manual) Basophils # (Manual) D-Dimer ABG pH 7.306 L POC ABG pCO2 58.0 H POC ABG pO2 58.5 L ABG Hemoglobin 11.4 L ABG Oxyhemoglobin 86.9 L ABG Sodium 124.7 L ABG Potassium ABG Chloride ABG Glucose 118 H Carboxyhemoglobin Sodium Chloride Carbon Dioxide BUN Creatinine Glucose POC Glucose 143 H 134 H Calcium Ferritin Lactate Dehydrogenase Total Creatine Kinase CK-MB (CK-2) C-Reactive Protein Total Protein Albumin Arterial Blood Glucose 118 H Urine WBC (Auto) Vancomycin Trough Coronavirus (PCR) 12/03/20 12/03/20 12/04/20 05:10 08:00 03:32 WBC RBC Hgb Hct RDW Lymph % (Auto) Riley # (Auto) Seg Neutrophils % Seg Neuts % (Manual) Lymphocytes % (Manual) Seg Neutrophils # Seg Neutrophils # Man Lymphocytes # (Manual) Monocytes # (Manual) Basophils # (Manual) D-Dimer ABG pH 7.272 L POC ABG pCO2 60.1 H 54.6 H POC ABG pO2 82.8 L 78.6 L ABG Hemoglobin 11.4 L ABG Oxyhemoglobin ABG Sodium 132.2 L 130.2 L ABG Potassium ABG Chloride ABG Glucose 166 H 164 H Carboxyhemoglobin 0.4 L Sodium Chloride Carbon Dioxide BUN Creatinine Glucose POC Glucose Calcium Ferritin Lactate Dehydrogenase Total Creatine Kinase CK-MB (CK-2) C-Reactive Protein Total Protein Albumin Arterial Blood Glucose 166 H 164 H Urine WBC (Auto) Vancomycin Trough Coronavirus (PCR) Positive A 12/04/20 12/04/20 12/04/20 05:40 05:40 07:30 WBC 21.7 H RBC Hgb Hct RDW 18.2 H Lymph % (Auto) Riley # (Auto) Seg Neutrophils % Seg Neuts % (Manual) 74.0 H Lymphocytes % (Manual) 2.0 L Seg Neutrophils # Seg Neutrophils # Man 16.1 H Lymphocytes # (Manual) 0.4 L Monocytes # (Manual) 1.1 H Basophils # (Manual) 0.2 H D-Dimer ABG pH POC ABG pCO2 POC ABG pO2 ABG Hemoglobin ABG Oxyhemoglobin ABG Sodium ABG Potassium ABG Chloride ABG Glucose Carboxyhemoglobin Sodium Chloride Carbon Dioxide BUN 26 H Creatinine 1.7 H D Glucose 157 H POC Glucose Calcium Ferritin Lactate Dehydrogenase Total Creatine Kinase CK-MB (CK-2) C-Reactive Protein Total Protein 6.2 L Albumin 2.6 L Arterial Blood Glucose Urine WBC (Auto) > 182.0 H Vancomycin Trough Coronavirus (PCR) 12/04/20 12/04/20 12/04/20 10:41 10:41 10:41 WBC RBC Hgb Hct RDW Lymph % (Auto) Riley # (Auto) Seg Neutrophils % Seg Neuts % (Manual) Lymphocytes % (Manual) Seg Neutrophils # Seg Neutrophils # Man Lymphocytes # (Manual) Monocytes # (Manual) Basophils # (Manual) D-Dimer 1838.21 H ABG pH POC ABG pCO2 POC ABG pO2 ABG Hemoglobin ABG Oxyhemoglobin ABG Sodium ABG Potassium ABG Chloride ABG Glucose Carboxyhemoglobin Sodium Chloride Carbon Dioxide BUN Creatinine Glucose POC Glucose Calcium Ferritin 399.0 H Lactate Dehydrogenase 386 H Total Creatine Kinase CK-MB (CK-2) C-Reactive Protein 34.30 H Total Protein Albumin Arterial Blood Glucose Urine WBC (Auto) Vancomycin Trough Coronavirus (PCR) 12/04/20 12/05/20 12/05/20 23:58 00:10 00:45 WBC RBC Hgb Hct RDW Lymph % (Auto) Riley # (Auto) Seg Neutrophils % Seg Neuts % (Manual) Lymphocytes % (Manual) Seg Neutrophils # Seg Neutrophils # Man Lymphocytes # (Manual) Monocytes # (Manual) Basophils # (Manual) D-Dimer ABG pH POC ABG pCO2 55.5 H POC ABG pO2 ABG Hemoglobin 11.2 L ABG Oxyhemoglobin ABG Sodium 135.0 L ABG Potassium 4.6 H ABG Chloride ABG Glucose 165 H Carboxyhemoglobin Sodium Chloride Carbon Dioxide BUN Creatinine Glucose POC Glucose 134 H 146 H Calcium Ferritin Lactate Dehydrogenase Total Creatine Kinase CK-MB (CK-2) C-Reactive Protein Total Protein Albumin Arterial Blood Glucose 165 H Urine WBC (Auto) Vancomycin Trough Coronavirus (PCR) 12/05/20 12/05/20 12/05/20 11:04 11:04 11:52 WBC 13.0 H RBC 3.61 L Hgb Hct RDW 18.8 H Lymph % (Auto) 13.1 L Riley # (Auto) 0.9 H Seg Neutrophils % 77.6 H Seg Neuts % (Manual) Lymphocytes % (Manual) Seg Neutrophils # 10.0 H Seg Neutrophils # Man Lymphocytes # (Manual) Monocytes # (Manual) Basophils # (Manual) D-Dimer ABG pH POC ABG pCO2 POC ABG pO2 ABG Hemoglobin ABG Oxyhemoglobin ABG Sodium ABG Potassium ABG Chloride ABG Glucose Carboxyhemoglobin Sodium Chloride Carbon Dioxide 31 H BUN 21 H Creatinine Glucose 152 H POC Glucose 121 H Calcium Ferritin Lactate Dehydrogenase Total Creatine Kinase CK-MB (CK-2) C-Reactive Protein Total Protein Albumin Arterial Blood Glucose Urine WBC (Auto) Vancomycin Trough Coronavirus (PCR) 12/05/20 12/05/20 12/06/20 17:31 23:37 04:00 WBC RBC Hgb Hct RDW Lymph % (Auto) Riley # (Auto) Seg Neutrophils % Seg Neuts % (Manual) Lymphocytes % (Manual) Seg Neutrophils # Seg Neutrophils # Man Lymphocytes # (Manual) Monocytes # (Manual) Basophils # (Manual) D-Dimer ABG pH 7.471 H POC ABG pCO2 POC ABG pO2 75.2 L ABG Hemoglobin 10.4 L ABG Oxyhemoglobin ABG Sodium 133.7 L ABG Potassium ABG Chloride ABG Glucose 120 H Carboxyhemoglobin Sodium Chloride Carbon Dioxide BUN Creatinine Glucose POC Glucose 148 H 133 H Calcium Ferritin Lactate Dehydrogenase Total Creatine Kinase CK-MB (CK-2) C-Reactive Protein Total Protein Albumin Arterial Blood Glucose 120 H Urine WBC (Auto) Vancomycin Trough Coronavirus (PCR) 12/06/20 12/06/20 12/06/20 05:07 05:07 05:09 WBC RBC 3.37 L Hgb 9.4 L Hct 28.4 L RDW 18.3 H Lymph % (Auto) Riley # (Auto) Seg Neutrophils % Seg Neuts % (Manual) Lymphocytes % (Manual) Seg Neutrophils # Seg Neutrophils # Man Lymphocytes # (Manual) Monocytes # (Manual) Basophils # (Manual) D-Dimer ABG pH POC ABG pCO2 POC ABG pO2 ABG Hemoglobin ABG Oxyhemoglobin ABG Sodium ABG Potassium ABG Chloride ABG Glucose Carboxyhemoglobin Sodium Chloride Carbon Dioxide 33 H BUN 25 H Creatinine Glucose 131 H POC Glucose 122 H Calcium Ferritin Lactate Dehydrogenase Total Creatine Kinase CK-MB (CK-2) C-Reactive Protein Total Protein Albumin Arterial Blood Glucose Urine WBC (Auto) Vancomycin Trough Coronavirus (PCR) 12/06/20 12/06/20 12/06/20 11:59 16:17 17:30 WBC RBC Hgb Hct RDW Lymph % (Auto) Riley # (Auto) Seg Neutrophils % Seg Neuts % (Manual) Lymphocytes % (Manual) Seg Neutrophils # Seg Neutrophils # Man Lymphocytes # (Manual) Monocytes # (Manual) Basophils # (Manual) D-Dimer ABG pH POC ABG pCO2 61.8 H POC ABG pO2 180.5 H ABG Hemoglobin ABG Oxyhemoglobin ABG Sodium ABG Potassium ABG Chloride ABG Glucose 142 H Carboxyhemoglobin Sodium Chloride Carbon Dioxide BUN Creatinine Glucose POC Glucose 120 H 114 H Calcium Ferritin Lactate Dehydrogenase Total Creatine Kinase CK-MB (CK-2) C-Reactive Protein Total Protein Albumin Arterial Blood Glucose 142 H Urine WBC (Auto) Vancomycin Trough Coronavirus (PCR) 12/06/20 12/07/20 12/07/20 23:09 04:00 04:00 WBC RBC 3.47 L Hgb 9.5 L Hct 29.5 L RDW 18.7 H Lymph % (Auto) Riley # (Auto) Seg Neutrophils % Seg Neuts % (Manual) Lymphocytes % (Manual) Seg Neutrophils # Seg Neutrophils # Man Lymphocytes # (Manual) Monocytes # (Manual) Basophils # (Manual) D-Dimer ABG pH POC ABG pCO2 55.9 H POC ABG pO2 ABG Hemoglobin 11.6 L ABG Oxyhemoglobin ABG Sodium 135.2 L ABG Potassium 4.7 H ABG Chloride ABG Glucose 141 H Carboxyhemoglobin Sodium Chloride Carbon Dioxide BUN Creatinine Glucose POC Glucose 112 H Calcium Ferritin Lactate Dehydrogenase Total Creatine Kinase CK-MB (CK-2) C-Reactive Protein Total Protein Albumin Arterial Blood Glucose 141 H Urine WBC (Auto) Vancomycin Trough Coronavirus (PCR) 12/07/20 12/07/20 12/07/20 05:00 05:28 12:20 WBC RBC Hgb Hct RDW Lymph % (Auto) Riley # (Auto) Seg Neutrophils % Seg Neuts % (Manual) Lymphocytes % (Manual) Seg Neutrophils # Seg Neutrophils # Man Lymphocytes # (Manual) Monocytes # (Manual) Basophils # (Manual) D-Dimer ABG pH POC ABG pCO2 POC ABG pO2 ABG Hemoglobin ABG Oxyhemoglobin ABG Sodium ABG Potassium ABG Chloride ABG Glucose Carboxyhemoglobin Sodium Chloride 96.6 L Carbon Dioxide 35 H BUN 29 H Creatinine Glucose 148 H POC Glucose 139 H 130 H Calcium Ferritin Lactate Dehydrogenase Total Creatine Kinase CK-MB (CK-2) C-Reactive Protein Total Protein Albumin Arterial Blood Glucose Urine WBC (Auto) Vancomycin Trough Coronavirus (PCR) 12/07/20 12/07/20 12/08/20 16:54 23:15 04:00 WBC RBC Hgb Hct RDW Lymph % (Auto) Riley # (Auto) Seg Neutrophils % Seg Neuts % (Manual) Lymphocytes % (Manual) Seg Neutrophils # Seg Neutrophils # Man Lymphocytes # (Manual) Monocytes # (Manual) Basophils # (Manual) D-Dimer ABG pH POC ABG pCO2 53.4 H POC ABG pO2 ABG Hemoglobin 11.4 L ABG Oxyhemoglobin ABG Sodium ABG Potassium ABG Chloride 96.0 L ABG Glucose 149 H Carboxyhemoglobin Sodium Chloride Carbon Dioxide BUN Creatinine Glucose POC Glucose 121 H 166 H Calcium Ferritin Lactate Dehydrogenase Total Creatine Kinase CK-MB (CK-2) C-Reactive Protein Total Protein Albumin Arterial Blood Glucose 149 H Urine WBC (Auto) Vancomycin Trough Coronavirus (PCR) 12/08/20 12/08/20 12/08/20 05:29 08:33 08:33 WBC 11.2 H RBC 3.64 L Hgb Hct 30.2 L RDW 18.1 H Lymph % (Auto) Riley # (Auto) Seg Neutrophils % Seg Neuts % (Manual) Lymphocytes % (Manual) Seg Neutrophils # Seg Neutrophils # Man Lymphocytes # (Manual) Monocytes # (Manual) Basophils # (Manual) D-Dimer ABG pH POC ABG pCO2 POC ABG pO2 ABG Hemoglobin ABG Oxyhemoglobin ABG Sodium ABG Potassium ABG Chloride ABG Glucose Carboxyhemoglobin Sodium Chloride 96.2 L Carbon Dioxide 33 H BUN 31 H Creatinine Glucose 166 H POC Glucose 128 H Calcium 10.3 H Ferritin Lactate Dehydrogenase Total Creatine Kinase CK-MB (CK-2) C-Reactive Protein Total Protein Albumin Arterial Blood Glucose Urine WBC (Auto) Vancomycin Trough Coronavirus (PCR) 12/08/20 12/08/20 12/09/20 11:53 16:46 00:20 WBC RBC Hgb Hct RDW Lymph % (Auto) Riley # (Auto) Seg Neutrophils % Seg Neuts % (Manual) Lymphocytes % (Manual) Seg Neutrophils # Seg Neutrophils # Man Lymphocytes # (Manual) Monocytes # (Manual) Basophils # (Manual) D-Dimer ABG pH POC ABG pCO2 POC ABG pO2 ABG Hemoglobin ABG Oxyhemoglobin ABG Sodium ABG Potassium ABG Chloride ABG Glucose Carboxyhemoglobin Sodium Chloride Carbon Dioxide BUN Creatinine Glucose POC Glucose 170 H 157 H 164 H Calcium Ferritin Lactate Dehydrogenase Total Creatine Kinase CK-MB (CK-2) C-Reactive Protein Total Protein Albumin Arterial Blood Glucose Urine WBC (Auto) Vancomycin Trough Coronavirus (PCR) 12/09/20 12/09/20 12/09/20 04:00 05:07 05:07 WBC 11.4 H RBC 3.53 L Hgb 9.8 L Hct 29.2 L RDW 17.8 H Lymph % (Auto) Riley # (Auto) Seg Neutrophils % Seg Neuts % (Manual) Lymphocytes % (Manual) Seg Neutrophils # Seg Neutrophils # Man Lymphocytes # (Manual) Monocytes # (Manual) Basophils # (Manual) D-Dimer ABG pH POC ABG pCO2 54.4 H POC ABG pO2 ABG Hemoglobin 10.5 L ABG Oxyhemoglobin ABG Sodium ABG Potassium ABG Chloride ABG Glucose 204 H Carboxyhemoglobin Sodium Chloride Carbon Dioxide 33 H BUN 38 H Creatinine Glucose 189 H POC Glucose Calcium Ferritin Lactate Dehydrogenase Total Creatine Kinase CK-MB (CK-2) C-Reactive Protein Total Protein Albumin Arterial Blood Glucose 204 H Urine WBC (Auto) Vancomycin Trough Coronavirus (PCR) 12/09/20 12/09/20 12/09/20 05:30 11:57 17:33 WBC RBC Hgb Hct RDW Lymph % (Auto) Riley # (Auto) Seg Neutrophils % Seg Neuts % (Manual) Lymphocytes % (Manual) Seg Neutrophils # Seg Neutrophils # Man Lymphocytes # (Manual) Monocytes # (Manual) Basophils # (Manual) D-Dimer ABG pH POC ABG pCO2 POC ABG pO2 ABG Hemoglobin ABG Oxyhemoglobin ABG Sodium ABG Potassium ABG Chloride ABG Glucose Carboxyhemoglobin Sodium Chloride Carbon Dioxide BUN Creatinine Glucose POC Glucose 190 H 153 H 180 H Calcium Ferritin Lactate Dehydrogenase Total Creatine Kinase CK-MB (CK-2) C-Reactive Protein Total Protein Albumin Arterial Blood Glucose Urine WBC (Auto) Vancomycin Trough Coronavirus (PCR) 12/10/20 12/10/20 12/10/20 00:28 03:16 05:03 WBC 11.5 H RBC 3.42 L Hgb 9.4 L Hct 29.3 L RDW 17.9 H Lymph % (Auto) Riley # (Auto) Seg Neutrophils % Seg Neuts % (Manual) Lymphocytes % (Manual) Seg Neutrophils # Seg Neutrophils # Man Lymphocytes # (Manual) Monocytes # (Manual) Basophils # (Manual) D-Dimer ABG pH 7.493 H POC ABG pCO2 POC ABG pO2 71.4 L ABG Hemoglobin 9.9 L ABG Oxyhemoglobin ABG Sodium ABG Potassium ABG Chloride ABG Glucose 181 H Carboxyhemoglobin 0.4 L Sodium Chloride Carbon Dioxide BUN Creatinine Glucose POC Glucose 173 H Calcium Ferritin Lactate Dehydrogenase Total Creatine Kinase CK-MB (CK-2) C-Reactive Protein Total Protein Albumin Arterial Blood Glucose 181 H Urine WBC (Auto) Vancomycin Trough Coronavirus (PCR) 12/10/20 12/10/20 12/10/20 05:03 05:48 11:41 WBC RBC Hgb Hct RDW Lymph % (Auto) Riley # (Auto) Seg Neutrophils % Seg Neuts % (Manual) Lymphocytes % (Manual) Seg Neutrophils # Seg Neutrophils # Man Lymphocytes # (Manual) Monocytes # (Manual) Basophils # (Manual) D-Dimer ABG pH POC ABG pCO2 POC ABG pO2 ABG Hemoglobin ABG Oxyhemoglobin ABG Sodium ABG Potassium ABG Chloride ABG Glucose Carboxyhemoglobin Sodium Chloride Carbon Dioxide BUN 34 H Creatinine Glucose 174 H POC Glucose 176 H 203 H Calcium Ferritin Lactate Dehydrogenase Total Creatine Kinase CK-MB (CK-2) C-Reactive Protein Total Protein Albumin Arterial Blood Glucose Urine WBC (Auto) Vancomycin Trough Coronavirus (PCR) 12/10/20 12/10/20 12/11/20 16:32 23:27 04:00 WBC RBC Hgb Hct RDW Lymph % (Auto) Riley # (Auto) Seg Neutrophils % Seg Neuts % (Manual) Lymphocytes % (Manual) Seg Neutrophils # Seg Neutrophils # Man Lymphocytes # (Manual) Monocytes # (Manual) Basophils # (Manual) D-Dimer ABG pH 7.517 H POC ABG pCO2 POC ABG pO2 ABG Hemoglobin 10.0 L ABG Oxyhemoglobin ABG Sodium ABG Potassium ABG Chloride ABG Glucose 175 H Carboxyhemoglobin 0.3 L Sodium Chloride Carbon Dioxide BUN Creatinine Glucose POC Glucose 148 H 186 H Calcium Ferritin Lactate Dehydrogenase Total Creatine Kinase CK-MB (CK-2) C-Reactive Protein Total Protein Albumin Arterial Blood Glucose 175 H Urine WBC (Auto) Vancomycin Trough Coronavirus (PCR) 12/11/20 12/11/20 12/11/20 05:18 06:05 06:05 WBC RBC 3.19 L Hgb 9.0 L Hct 27.1 L RDW 18.0 H Lymph % (Auto) Riley # (Auto) Seg Neutrophils % Seg Neuts % (Manual) Lymphocytes % (Manual) Seg Neutrophils # Seg Neutrophils # Man Lymphocytes # (Manual) Monocytes # (Manual) Basophils # (Manual) D-Dimer ABG pH POC ABG pCO2 POC ABG pO2 ABG Hemoglobin ABG Oxyhemoglobin ABG Sodium ABG Potassium ABG Chloride ABG Glucose Carboxyhemoglobin Sodium Chloride Carbon Dioxide BUN 33 H Creatinine Glucose 158 H POC Glucose 151 H Calcium Ferritin Lactate Dehydrogenase Total Creatine Kinase CK-MB (CK-2) C-Reactive Protein Total Protein Albumin Arterial Blood Glucose Urine WBC (Auto) Vancomycin Trough Coronavirus (PCR) 12/11/20 12/11/20 12/11/20 12:17 18:07 23:30 WBC RBC Hgb Hct RDW Lymph % (Auto) Riley # (Auto) Seg Neutrophils % Seg Neuts % (Manual) Lymphocytes % (Manual) Seg Neutrophils # Seg Neutrophils # Man Lymphocytes # (Manual) Monocytes # (Manual) Basophils # (Manual) D-Dimer ABG pH POC ABG pCO2 POC ABG pO2 ABG Hemoglobin ABG Oxyhemoglobin ABG Sodium ABG Potassium ABG Chloride ABG Glucose Carboxyhemoglobin Sodium Chloride Carbon Dioxide BUN Creatinine Glucose POC Glucose 163 H 152 H 144 H Calcium Ferritin Lactate Dehydrogenase Total Creatine Kinase CK-MB (CK-2) C-Reactive Protein Total Protein Albumin Arterial Blood Glucose Urine WBC (Auto) Vancomycin Trough Coronavirus (PCR) 12/12/20 12/12/20 12/12/20 04:00 04:27 11:29 WBC RBC Hgb Hct RDW Lymph % (Auto) Riley # (Auto) Seg Neutrophils % Seg Neuts % (Manual) Lymphocytes % (Manual) Seg Neutrophils # Seg Neutrophils # Man Lymphocytes # (Manual) Monocytes # (Manual) Basophils # (Manual) D-Dimer ABG pH 7.453 H POC ABG pCO2 POC ABG pO2 79.3 L ABG Hemoglobin 9.3 L ABG Oxyhemoglobin ABG Sodium ABG Potassium ABG Chloride ABG Glucose 159 H Carboxyhemoglobin Sodium Chloride Carbon Dioxide BUN Creatinine Glucose POC Glucose 146 H 135 H Calcium Ferritin Lactate Dehydrogenase Total Creatine Kinase CK-MB (CK-2) C-Reactive Protein Total Protein Albumin Arterial Blood Glucose 159 H Urine WBC (Auto) Vancomycin Trough Coronavirus (PCR) 12/12/20 12/12/20 12/12/20 17:31 18:47 18:47 WBC RBC 3.38 L Hgb 9.3 L Hct 29.3 L RDW 18.8 H Lymph % (Auto) Riley # (Auto) Seg Neutrophils % Seg Neuts % (Manual) Lymphocytes % (Manual) Seg Neutrophils # Seg Neutrophils # Man Lymphocytes # (Manual) Monocytes # (Manual) Basophils # (Manual) D-Dimer ABG pH POC ABG pCO2 POC ABG pO2 ABG Hemoglobin ABG Oxyhemoglobin ABG Sodium ABG Potassium ABG Chloride ABG Glucose Carboxyhemoglobin Sodium Chloride Carbon Dioxide BUN Creatinine Glucose POC Glucose 145 H Calcium Ferritin Lactate Dehydrogenase Total Creatine Kinase CK-MB (CK-2) C-Reactive Protein Total Protein Albumin Arterial Blood Glucose Urine WBC (Auto) Vancomycin Trough 30.6 H Coronavirus (PCR) 12/12/20 12/13/20 12/13/20 23:38 04:52 04:52 WBC RBC 3.24 L Hgb 9.0 L Hct 27.6 L RDW 17.9 H Lymph % (Auto) Riley # (Auto) Seg Neutrophils % Seg Neuts % (Manual) Lymphocytes % (Manual) Seg Neutrophils # Seg Neutrophils # Man Lymphocytes # (Manual) Monocytes # (Manual) Basophils # (Manual) D-Dimer ABG pH POC ABG pCO2 POC ABG pO2 ABG Hemoglobin ABG Oxyhemoglobin ABG Sodium ABG Potassium ABG Chloride ABG Glucose Carboxyhemoglobin Sodium Chloride Carbon Dioxide BUN 27 H Creatinine Glucose 157 H POC Glucose 123 H Calcium Ferritin Lactate Dehydrogenase Total Creatine Kinase CK-MB (CK-2) C-Reactive Protein Total Protein Albumin 2.9 L Arterial Blood Glucose Urine WBC (Auto) Vancomycin Trough Coronavirus (PCR) 12/13/20 12/13/20 12/13/20 05:22 11:38 17:36 WBC RBC Hgb Hct RDW Lymph % (Auto) Riley # (Auto) Seg Neutrophils % Seg Neuts % (Manual) Lymphocytes % (Manual) Seg Neutrophils # Seg Neutrophils # Man Lymphocytes # (Manual) Monocytes # (Manual) Basophils # (Manual) D-Dimer ABG pH POC ABG pCO2 POC ABG pO2 ABG Hemoglobin ABG Oxyhemoglobin ABG Sodium ABG Potassium ABG Chloride ABG Glucose Carboxyhemoglobin Sodium Chloride Carbon Dioxide BUN Creatinine Glucose POC Glucose 176 H 140 H 139 H Calcium Ferritin Lactate Dehydrogenase Total Creatine Kinase CK-MB (CK-2) C-Reactive Protein Total Protein Albumin Arterial Blood Glucose Urine WBC (Auto) Vancomycin Trough Coronavirus (PCR) 12/14/20 12/14/20 12/14/20 00:14 06:11 08:30 WBC RBC Hgb Hct RDW Lymph % (Auto) Riley # (Auto) Seg Neutrophils % Seg Neuts % (Manual) Lymphocytes % (Manual) Seg Neutrophils # Seg Neutrophils # Man Lymphocytes # (Manual) Monocytes # (Manual) Basophils # (Manual) D-Dimer ABG pH 7.494 H POC ABG pCO2 POC ABG pO2 168.3 H ABG Hemoglobin 10.6 L ABG Oxyhemoglobin 98.8 H ABG Sodium ABG Potassium ABG Chloride ABG Glucose 136 H Carboxyhemoglobin 0.3 L Sodium Chloride Carbon Dioxide BUN Creatinine Glucose POC Glucose 145 H 144 H Calcium Ferritin Lactate Dehydrogenase Total Creatine Kinase CK-MB (CK-2) C-Reactive Protein Total Protein Albumin Arterial Blood Glucose 136 H Urine WBC (Auto) Vancomycin Trough Coronavirus (PCR) 12/14/20 12/14/20 12/14/20 11:43 17:54 23:34 WBC RBC Hgb Hct RDW Lymph % (Auto) [place] # (Auto) Seg Neutrophils % Seg Neuts % (Manual) Lymphocytes % (Manual) Seg Neutrophils # Seg Neutrophils # Man Lymphocytes # (Manual) Monocytes # (Manual) Basophils # (Manual) D-Dimer ABG pH POC ABG pCO2 POC ABG pO2 ABG Hemoglobin ABG Oxyhemoglobin ABG Sodium ABG Potassium ABG Chloride ABG Glucose Carboxyhemoglobin Sodium Chloride Carbon Dioxide BUN Creatinine Glucose POC Glucose 146 H 133 H 139 H Calcium Ferritin Lactate Dehydrogenase Total Creatine Kinase CK-MB (CK-2) C-Reactive Protein Total Protein Albumin Arterial Blood Glucose Urine WBC (Auto) Vancomycin Trough Coronavirus (PCR) 12/14/20 12/15/20 12/15/20 Unknown 05:55 11:34 WBC RBC Hgb Hct RDW Lymph % (Auto) [place] # (Auto) Seg Neutrophils % Seg Neuts % (Manual) Lymphocytes % (Manual) Seg Neutrophils # Seg Neutrophils # Man Lymphocytes # (Manual) Monocytes # (Manual) Basophils # (Manual) D-Dimer ABG pH POC ABG pCO2 POC ABG pO2 ABG Hemoglobin ABG Oxyhemoglobin ABG Sodium ABG Potassium ABG Chloride ABG Glucose Carboxyhemoglobin Sodium Chloride Carbon Dioxide BUN 19 H Creatinine Glucose 146 H POC Glucose 121 H 152 H Calcium Ferritin Lactate Dehydrogenase Total Creatine Kinase CK-MB (CK-2) C-Reactive Protein Total Protein Albumin Arterial Blood Glucose Urine WBC (Auto) Vancomycin Trough Coronavirus (PCR)
[2020-12-15] MEDS ORDERED: ALBUTEROL 8.5 GM MDI INHALATION IH PRN (21:18)
[2020-12-16 06:41] LABS: Hematocrit 34.9 % (30.3-42.9); Hemoglobin 11.3 gm/dl (10.1-14.3); Mean Corpuscular HGB Conc 33 % (30-34); Mean Corpuscular Volume 85 fl (79-97); Platelet Count 397 K/mm3 (140-440); Red Blood Count 4.13 M/mm3 (3.65-5.03)
[2020-12-16 06:47] LABS: Alanine Aminotransferase 23 units/L (7-56); BUN/Creatinine Ratio 27; Blood Urea Nitrogen 24 mg/dL (7-17); Calcium 10.8 mg/dL (8.4-10.2); Hemolysis Index 5
--- NOTE | 2020-12-16 07:36 | Progress Note ---
Assessment and Plan Assessment and plan: #Acute hypoxic respiratory failure -self extubated 12/15, currently maintaining saturation on room air -will continue to monitor #Sepsis -blood cultures 12/11 no growth to date, UCx also negative -s/p vancomycin, continue zosyn for 5 days total (last day today) #Severe tracheal stenosis -History of intubation over 40 times #Angioedema -history of hereditary idiopathic angioedema alpha gal syndrome -will need outpatient allergy/ENT follow-up #Hypertension - hypertensive urgency on presentation, resolved - continue HCTZ #Status post cardiac arrest -12/06 respiratory arrest #History type 2 diabetes -POC glucose q6h, continue sliding scale insulin -Carb consistent diet #Vomiting -Patient reports multiple episodes of vomiting, one observed by nurse -Scopolamine patch per CCM -KUB ordered -As needed Zofran #Hypokalemia -Potassium 3.2 -Given 80 mEq of KCl #NINI -Resolved Disposition Plan: Home with Total Time Spent with Patient (Minutes): 30 minutes History Interval history: Stable on room air. Patient complains of vomiting and abdominal discomfort. Has been passing flatus but no bowel movement. Hospitalist Physical - Physical exam Narrative exam: GENERAL: Obese woman. Lying in bed alert. CHEST/LUNGS: Port at right chest. Coarse breath sounds bilaterally. HEART: No murmur, rubs or gallops appreciated. ABDOMEN: +BS. NT/ND. NEURO: No focal motor deficit. Follows all commands. EXTREMITIES: No cyanosis, cubbing or edema. PSYCH: Appropriate affect. - Constitutional Vitals: Temp Pulse Resp BP Pulse Ox 99.4 F 84 16 137/62 96 12/16/20 05:00 12/16/20 05:00 12/16/20 05:00 12/16/20 05:00 12/15/20 20:00 General appearance: Present: no acute distress, well-nourished, obese, other (Intubated on vent, sedated but follows commands) - Allied Health Allied health notes reviewed: nursing, PT, social work HEART Score - HEART Score Troponin: Troponin T < 0.010 ng/mL (0.00-0.029) 11/30/20 14:12 Results - Labs CBC & Chem 7: 12/16/20 05:26 12/16/20 05:26 Labs: Laboratory Last Values WBC 13.5 K/mm3 (4.5-11.0) H 12/16/20 05:26 RBC 4.13 M/mm3 (3.65-5.03) 12/16/20 05:26 Hgb 11.3 gm/dl (10.1-14.3) 12/16/20 05:26 Hct 34.9 % (30.3-42.9) 12/16/20 05:26 MCV 85 fl (79-97) 12/16/20 05:26 MCH 27 pg (28-32) L 12/16/20 05:26 MCHC 33 % (30-34) 12/16/20 05:26 RDW 19.0 % (13.2-15.2) H 12/16/20 05:26 Plt Count 397 K/mm3 (140-440) 12/16/20 05:26 Lymph % (Auto) 13.1 % (13.4-35.0) L 12/05/20 11:04 [place] % (Auto) 6.7 % (0.0-7.3) 12/05/20 11:04 Eos % (Auto) 2.2 % (0.0-4.3) 12/05/20 11:04 Baso % (Auto) 0.4 % (0.0-1.8) 12/05/20 11:04 Lymph # (Auto) 1.7 K/mm3 (1.2-5.4) 12/05/20 11:04 [place] # (Auto) 0.9 K/mm3 (0.0-0.8) H 12/05/20 11:04 Eos # (Auto) 0.3 K/mm3 (0.0-0.4) 12/05/20 11:04 Baso # (Auto) 0.1 K/mm3 (0.0-0.1) 12/05/20 11:04 Add Manual Diff Complete 12/04/20 05:40 Total Counted 100 12/04/20 05:40 Seg Neutrophils % 77.6 % (40.0-70.0) H 12/05/20 11:04 Seg Neuts % (Manual) 74.0 % (40.0-70.0) H 12/04/20 05:40 Band Neutrophils % 16.0 % 12/04/20 05:40 Lymphocytes % (Manual) 2.0 % (13.4-35.0) L 12/04/20 05:40 Monocytes % (Manual) 5.0 % (0.0-7.3) 12/04/20 05:40 Eosinophils % (Manual) 2.0 % (0.0-4.3) 12/04/20 05:40 Basophils % (Manual) 1.0 % (0.0-1.8) 12/04/20 05:40 Nucleated RBC % Not Reportable 12/04/20 05:40 Seg Neutrophils # 10.0 K/mm3 (1.8-7.7) H 12/05/20 11:04 Seg Neutrophils # Man 16.1 K/mm3 (1.8-7.7) H 12/04/20 05:40 Band Neutrophils # 3.5 K/mm3 12/04/20 05:40 Lymphocytes # (Manual) 0.4 K/mm3 (1.2-5.4) L 12/04/20 05:40 Abs React Lymphs (Man) 0.0 K/mm3 12/04/20 05:40 Monocytes # (Manual) 1.1 K/mm3 (0.0-0.8) H 12/04/20 05:40 Eosinophils # (Manual) 0.4 K/mm3 (0.0-0.4) 12/04/20 05:40 Basophils # (Manual) 0.2 K/mm3 (0.0-0.1) H 12/04/20 05:40 Metamyelocytes # 0.0 K/mm3 12/04/20 05:40 Myelocytes # 0.0 K/mm3 12/04/20 05:40 Promyelocytes # 0.0 K/mm3 12/04/20 05:40 Blast Cells # 0.0 K/mm3 12/04/20 05:40 WBC Morphology Not Reportable 12/04/20 05:40 Hypersegmented Neuts Not Reportable 12/04/20 05:40 Hyposegmented Neuts Not Reportable 12/04/20 05:40 Hypogranular Neuts Not Reportable 12/04/20 05:40 Smudge Cells Not Reportable 12/04/20 05:40 Toxic Granulation Not Reportable 12/04/20 05:40 Toxic Vacuolation Not Reportable 12/04/20 05:40 Dohle Bodies Not Reportable 12/04/20 05:40 Pelger-Huet Anomaly Not Reportable 12/04/20 05:40 Solomon Rods Not Reportable 12/04/20 05:40 Platelet Estimate Not Reportable 12/04/20 05:40 Clumped Platelets 1+ 12/04/20 05:40 Plt Clumps, EDTA Not Reportable 12/04/20 05:40 Large Platelets Not Reportable 12/04/20 05:40 Giant Platelets Not Reportable 12/04/20 05:40 Platelet Satelliting Not Reportable 12/04/20 05:40 Plt Morphology Comment Not Reportable 12/04/20 05:40 RBC Morphology Normal 12/04/20 05:40 Dimorphic RBCs Not Reportable 12/04/20 05:40 Polychromasia Not Reportable 12/04/20 05:40 Hypochromasia Not Reportable 12/04/20 05:40 Poikilocytosis Not Reportable 12/04/20 05:40 Anisocytosis Not Reportable 12/04/20 05:40 Microcytosis Not Reportable 12/04/20 05:40 Macrocytosis Not Reportable 12/04/20 05:40 Spherocytes Not Reportable 12/04/20 05:40 Pappenheimer Bodies Not Reportable 12/04/20 05:40 Sickle Cells Not Reportable 12/04/20 05:40 Target Cells Not Reportable 12/04/20 05:40 Tear Drop Cells Not Reportable 12/04/20 05:40 Ovalocytes Not Reportable 12/04/20 05:40 Helmet Cells Not Reportable 12/04/20 05:[address] [place] Bodies Not Reportable 12/04/20 05:40 [place] Rings Not Reportable 12/04/20 05:40 [place] Cells Not Reportable 12/04/20 05:40 Bite Cells Not Reportable 12/04/20 05:40 Crenated Cell Not Reportable 12/04/20 05:40 Elliptocytes Not Reportable 12/04/20 05:40 Acanthocytes (Spur) Not Reportable 12/04/20 05:40 Rouleaux Not Reportable 12/04/20 05:40 Hemoglobin C Crystals Not Reportable 12/04/20 05:40 Schistocytes Not Reportable 12/04/20 05:40 Malaria parasites Not Reportable 12/04/20 05:40 Charanjit Bodies Not Reportable 12/04/20 05:40 Hem Pathologist Commnt No 12/04/20 05:40 PT 13.9 Sec. (12.2-14.9) 12/07/20 04:00 INR 1.02 (0.87-1.13) 12/07/20 04:00 D-Dimer 1838.21 ng/mlDDU (0-234) H 12/04/20 10:41 ABG pH 7.494 (7.320-7.450) H 12/14/20 08:30 POC ABG pCO2 36.7 mmHg (32.0-48.0) 12/14/20 08:30 POC ABG pO2 168.3 mmHg (83-108) H 12/14/20 08:30 POC ABG HCO3 27.6 12/14/20 08:30 ABG O2 Saturation 99.4 (0-100) 12/14/20 08:30 POC ABG Base Excess 4.2 12/14/20 08:30 ABG Hemoglobin 10.6 (12.0-17.5) L 12/14/20 08:30 ABG Oxyhemoglobin 98.8 (94-98) H 12/14/20 08:30 ABG Methemoglobin 0.3 (0.0-1.5) 12/14/20 08:30 ABG Sodium 138.2 mmol/L (136.0-145.0) 12/14/20 08:30 ABG Potassium 3.7 mmol/L (3.40-4.50) 12/14/20 08:30 ABG Chloride 101.0 mmol/L (98-107) 12/14/20 08:30 ABG Glucose 136 mg/dL (65-95) H 12/14/20 08:30 Carboxyhemoglobin 0.3 (0.5-1.5) L 12/14/20 08:30 FiO2 % 40.0 12/14/20 08:30 Sodium 142 mmol/L (137-145) 12/16/20 05:26 Potassium 3.2 mmol/L (3.6-5.0) L D 12/16/20 05:26 Chloride 98.4 mmol/L (98-107) 12/16/20 05:26 Carbon Dioxide 27 mmol/L (22-30) 12/16/20 05:26 Anion Gap 20 mmol/L 12/16/20 05:26 BUN 24 mg/dL (7-17) H 12/16/20 05:26 Creatinine 0.9 mg/dL (0.6-1.2) 12/16/20 05:26 Estimated GFR > 60 ml/min 12/16/20 05:26 BUN/Creatinine Ratio 27 % 12/16/20 05:26 Glucose 117 mg/dL (65-100) H 12/16/20 05:26 POC Glucose 117 mg/dL (70-105) H 12/16/20 04:44 Calcium 10.8 mg/dL (8.4-10.2) H 12/16/20 05:26 Phosphorus TNR 12/12/20 14:33 Magnesium 2.10 mg/dL (1.7-2.3) 12/11/20 06:05 Ferritin 399.0 ng/mL (10.0-200.0) H 12/04/20 10:41 Total Bilirubin 0.40 mg/dL (0.1-1.2) 12/16/20 05:26 Direct Bilirubin < 0.2 mg/dL (0-0.2) 11/29/20 07:48 Indirect Bilirubin 0.0 mg/dL 11/29/20 07:48 AST 15 units/L (5-40) 12/16/20 05:26 ALT 23 units/L (7-56) 12/16/20 05:26 Alkaline Phosphatase 73 units/L (35-129) 12/16/20 05:26 Lactate Dehydrogenase 386 units/L (91-180) H 12/04/20 10:41 Total Creatine Kinase 1132 units/L (30-135) H 11/30/20 14:12 CK-MB (CK-2) 14.6 ng/mL (0.0-4.0) H 11/30/20 14:12 CK-MB (CK-2) Rel Index 1.2 (0-4) 11/30/20 14:12 Troponin T < 0.010 ng/mL (0.00-0.029) 11/30/20 14:12 C-Reactive Protein 34.30 mg/dL (0.00-1.30) H 12/04/20 10:41 Total Protein 8.7 g/dL (6.3-8.2) H D 12/16/20 05:26 Albumin 4.0 g/dL (3.9-5) 12/16/20 05:26 Albumin/Globulin Ratio 0.9 % 12/16/20 05:26 HCG, Qual Negative (Negative) 11/29/20 07:48 Arterial Blood Glucose 136 mg/dL (65-95) H 12/14/20 08:30 Arterial Blood Ionized Calcium 4.7 mg/dL (4.6-5.3) 12/14/20 08:30 Urine Color Colorless (Yellow) 12/11/20 12:22 Urine Turbidity Clear (Clear) 12/11/20 12:22 Urine pH 5.0 (5.0-7.0) 12/11/20 12:22 Ur Specific [place] 1.005 (1.003-1.030) 12/11/20 12:22 Urine Protein <15 mg/dl mg/dL (Negative) 12/11/20 12:22 Urine Glucose (UA) Neg mg/dL (Negative) 12/11/20 12:22 Urine Ketones Neg mg/dL (Negative) 12/11/20 12:22 Urine Blood Sm (Negative) 12/11/20 12:22 Urine Nitrite Neg (Negative) 12/11/20 12:22 Urine Bilirubin Neg (Negative) 12/11/20 12:22 Urine Urobilinogen < 2.0 mg/dL (<2.0) 12/11/20 12:22 Ur Leukocyte Esterase Neg (Negative) 12/11/20 12:22 Urine WBC (Auto) < 1.0 /HPF (0.0-6.0) 12/11/20 12:22 Urine RBC (Auto) 11.0 /HPF (0.0-6.0) 12/11/20 12:22 U Epithel Cells (Auto) 1.0 /HPF (0-13.0) 12/11/20 12:22 Urine Bacteria (Auto) 1+ /HPF (Negative) 12/11/20 12:22 Urine WBC Clumps 3+ /HPF 12/04/20 07:30 RBC Casts 1 /LPF 12/11/20 12:22 WBC Casts 17 /LPF 12/04/20 07:30 Urine Mucus Few /HPF 12/11/20 12:22 Nasal Screen MRSA (PCR) Negative (Negative) 12/13/20 10:24 Vancomycin Trough 30.6 ug/mL (5.0-20.0) H 12/12/20 18:47 Random Vancomycin 7.9 ug/mL (0-40.0) 12/14/20 05:58 Coronavirus (PCR) Positive (Negative) A 12/03/20 08:00 Microbiology: Microbiology 12/11/20 12:54 Peripheral/Venous Blood Culture - Preliminary NO GROWTH AFTER 4 DAYS 12/11/20 12:54 Peripheral/Venous Blood Culture - Preliminary NO GROWTH AFTER 4 DAYS 12/11/20 21:19 Tracheal Aspirate Sputum Culture - Final Dash/IV: Voiding Method Toilet Active Medications - Current Medications Current Medications: Generic Name Dose Route Start Last Admin Trade Name Freq PRN Reason Stop Dose Admin Acetaminophen 650 mg 12/04/20 00:39 12/10/20 05:24 Acetaminophen 325 Mg Tab PO 650 mg Q6H PRN Administration Fever >101 Albuterol 2 puff 12/15/20 21:18 Albuterol 8.5 Gm Mdi Inhalation IH Q4HRT PRN Shortness Of Breath Lipase/Protease/Amylase 1 each 11/29/20 15:23 Lipase 10,500/Protease 25,000/Amylase 43,750 (Units) Dr Ariza FEEDTUBE PRN PRN For Clogged Feeding Tube Ascorbic Acid 500 mg 12/04/20 22:00 12/15/20 11:35 Ascorbic Acid 500 Mg Tab PO Not Given BID KRYSTAL Dextrose 50 ml 12/05/20 10:34 Dextrose 50% In Water (25gm) 50 Ml Syringe IV Q30MIN PRN Hypoglycemia Protocol Doxepin HCl 75 mg 12/14/20 22:00 12/15/20 11:35 Doxepin 25 Mg Cap PO Not Given BID KRYSTAL Famotidine 20 mg 11/30/20 15:00 12/15/20 11:35 Famotidine 20 Mg/2 Ml Inj IV Not Given BID KRYSTAL Fondaparinux 2.5 mg 11/29/20 22:00 12/14/20 21:45 Fondaparinux 2.5 Mg/0.5 Ml Inj SUB-Q 2.5 mg Q24H KRYSTAL Administration Gabapentin 600 mg 11/30/20 17:00 12/15/20 11:35 Gabapentin 500 Mg/10 Ml Oral Liqd PO Not Given BID KRYSTAL Glycopyrrolate 2 mg 12/13/20 20:00 12/15/20 15:00 Glycopyrrolate 2 Mg Tab PO Not Given TID [facility] Hydralazine HCl 5 mg 12/15/20 03:14 12/15/20 03:51 Hydralazine 20 Mg/1 Ml Inj IV 5 mg Q4HR PRN Administration Increased Blood Pressure Hydrochlorothiazide 12.5 mg 12/10/20 10:00 12/15/20 11:35 Hydrochlorothiazide 12.5 Mg Cap PO Not Given QDAY [facility] Hydrophilic Ointment 1 applic 12/01/20 08:54 Lip Therapy Vaseline TP Q2HR PRN Dry Lips Dexmedetomidine HCl 400 mcg/ 104 mls @ 6.885 mls/hr 12/08/20 16:00 12/15/20 08:46 Sodium Chloride IV 1 mcg/kg/hr TITRATE KRYSTAL 34.424 mls/hr Administration Protocol 0.2 MCG/KG/HR Piperacillin Sod/Tazobactam Sod 4.5 gm in 100 mls @ 200 mls/hr 12/13/20 12:00 12/15/20 13:01 Zosyn/Ns 4.5gm/100ml IV 12/16/20 20:29 Not Given Q8H [facility] Protocol Insulin Human Regular 0 units 12/05/20 12:00 12/15/20 13:01 Insulin Regular, Human 100 Units/1 Ml SUB-Q Not Given Q6HR [facility] Protocol Montelukast Sodium 10 mg 11/29/20 22:00 12/14/20 22:32 Montelukast 10 Mg Tab PO Not Given HS [facility] Morphine Sulfate 2 mg 12/15/20 18:23 Morphine 2 Mg/1 Ml Inj IV Q4H PRN Pain, Moderate (4-6) Multi-Ingred Cream/Lotion/Oil/Oint 1 applic 12/01/20 08:54 Mineral Oil/Petrolatum, White Ophth Oint 3.5 Gm OU Q4HR PRN Dry Eye(s) Ondansetron HCl 4 mg 12/15/20 17:50 12/15/20 18:07 Ondansetron 4 Mg/2 Ml Inj IV 4 mg Q8H PRN Administration Nausea And Vomiting Potassium Chloride 40 meq 12/16/20 08:00 Potassium Chloride Er 20 Meq Tab PO 12/16/20 12:01 Q4H KRYSTAL Quetiapine Fumarate 150 mg 12/12/20 14:00 12/15/20 15:00 Quetiapine 100 Mg Tab PO Not Given Q8H KRYSTAL Scopolamine 1 each 12/13/20 18:00 12/13/20 17:48 Scopolamine Transdermal Patch 72 Hr TD 1 each Q3D KRYSTAL Administration Senna/Docusate Sodium 1 tab 11/29/20 10:00 12/15/20 11:35 Sennosides/Docusate Sodium 8.6/50 Mg Tab FEEDTUBE Not Given BID KRYSTAL Simple Syrup 15 ml 11/29/20 15:23 Simple Syrup 15 Ml FEEDTUBE PRN PRN Hypoglycemia Simple Syrup 30 ml 11/29/20 15:23 Simple Syrup 15 Ml FEEDTUBE PRN PRN Hypoglycemia Sodium Bicarbonate 325 mg 11/29/20 15:23 Sodium Bicarbonate 325 Mg Tab FEEDTUBE PRN PRN For Clogged Feeding Tube Zinc Sulfate 220 mg 12/05/20 10:00 12/15/20 11:35 Zinc Sulfate 220 Mg Cap PO Not Given QDAY KRYSTAL Nutrition/Malnutrition Assess - Dietary Evaluation Nutrition/Malnutrition Findings: Nutrition Notes Start: 11/30/20 09:03 Freq: Status: Active Protocol: Document 12/13/20 11:20 (Rec: 12/13/20 11:23 [id number]) Nutrition Notes Initial or Follow up Reassessment Current Diagnosis Respiratory Failure Other Pertinent Diagnosis allergic reaction, alpha gal, hx HTN Current Diet Vital HP at 65 ml/hr Labs/Tests BUN 27 BG 157 Pertinent Medications Zinc Vitamin C Height 5 ft 6 in Weight 132.4 kg [place] Body Weight (kg) 59.09 BMI 47.1 Weight Status Morbidly Obese Subjective/Other Information Pt tolerating TF at goal rate. No signs of intolerance noted . Percent of energy/protein needs met: 84%/91% Burn Absent Trauma Absent Difficulty In Swallowing Current % PO Negligible #1 Nutrition Diagnosis Inadequate oral intake Diagnosis Progress(for reassessment Continues documentation) Is patient on ventilator? Yes Is Patient Ambulatory and/or Out of Bed No REE-([place]-confined to bed) 2421.060 Kcal/Kg value to use for calculation 14 Approximate Energy Requirements Using 1854 kcal/Kg Calculation Used for Recommendations Kcal/kg Additional Notes Protein needs: 2.5 g/kg IBW , 148 g Fluid needs: 1ml/kcal Nutrition Intervention Change Diet Order: continue Nutrition Support: Vital High Protein at 65 ml/hr flush 45 ml q4h Kcal 1,560 Protein (gm) 135 Fluid (mL) 1,304 Goal #1 Meet at least 75% of protein and kcal needs via TF Anticipated Discharge Needs: Unable to determine at this time Follow-Up By: 12/20/20 Additional Comments F/u: stable TF, tolerance
[2020-12-16] MEDS: GLYCOPYRROLATE 2 MG TAB PO SCH ×4 (08:05→21:29)
[2020-12-16] MEDS: INSULIN REGULAR, HUMAN 100 UNITS/1 ML SUB-Q SCH ×5 (08:28→20:35)
[2020-12-16] MEDS: POTASSIUM CHLORIDE ER 20 MEQ TAB PO SCH ×2 (08:33→12:10)
[2020-12-16] MEDS: SENNOSIDES/DOCUSATE SODIUM 8.6/50 MG TAB FEEDTUBE SCH ×3 (10:03→21:26)
[2020-12-16] MEDS: ZINC SULFATE 220 MG CAP PO SCH (10:05)
[2020-12-16] MEDS: ASCORBIC ACID 500 MG TAB PO SCH ×3 (10:05→21:27)
[2020-12-16] MEDS: DOXEPIN 25 MG CAP PO SCH ×4 (10:05→23:34)
[2020-12-16] MEDS: hydroCHLOROthiazide 12.5 MG CAP PO SCH (10:05)
--- NOTE | 2020-12-16 10:07 | Progress Note ---
Assessment and Plan Acute hypoxemic respiratory failure s/p MVS Angioedema Morbid obesity Mild leukocytosis- resolved Hypertension. h/o alpha-gal syndrome s/p Cardiopulmonary arrest with ROSC Nausea -Place Scopolamine patch to help with nausea, discussed with hospitalist service at the bedside - continue accuchecks with glycemic control per SSI (Target blood glucose of 140-180 mg/dL; avoid hypoglycemia) - avoid nephrotoxins, renally dose all medications - continue to avoid benzodiazepines, reduce the possibility of delirium - Maintenance of sleep-wake cycle, avoid delirium -Stress ulcer and VTE prophylaxis - PT/OT/ROM exercises - continue mobility protocol, off loading, frequent turning per facility protocol for pressure ulcer prevention - Monitor hemodynamics closely - continue other care per attending / other consultants -Discharge planning COVID SPECIFIC INTERVENTIONS - Contact and airborne isolation per facility protocol - Remdesivir not indicated as per ID/Pulmonary developed protocols - No steroids secondary to stage of illness and Solumedrol allergy - Anticoagulation per system Protocol based on d-dimer and clinical considerat ions (VTE prophylaxis) Subjective Date of service: 12/16/20 Principal diagnosis: Acute Hypoxemic Respiratory Failure; Angioedema;Obesity; leukocytosis Interval history: 39-year-old female with HTN, migraines, asthma, peripheral neuropathy, morbid obesity, severe tracheostenosis, hereditary idiopathic angioedema and urticia, alphagal syndrome s/p multiple intubations and tracheostomy being admitted for acute hypoxic respiratory failure, hypertensive urgency and COVID-19 pneumonia. Patient is seen today for: Acute hypoxemic respiratory failure; Angioedema; Morbid obesity; leukocytosis; HTN; H/O alpha-gal syndrome Seen and examined at bedside; 24hour events reviewed; nursing and respiratory care staff consulted; no adverse overnight events reported to me; resting in bed; resting peacefully in bed, not requiring any oxygen supplementation; she has nausea and ear ache. States she is hearing babies voices intermittently. Denies any chest pain, no shortness of breath, no fevers or chills. Objective Vital Signs - 12hr 12/16/20 05:00 Temperature 99.4 F Pulse Rate 84 Respiratory 16 Rate Blood Pressure 137/62 [Right] Constitutional: no acute distress, alert, other (young obese female with normal respiratory effort at rest) Eyes: non-icteric ENT: oropharynx moist Neck: supple, no lymphadenopathy, no JVD Effort: normal Ascultation: Bilateral: clear, diminished breath sounds Percussion: Bilateral: not dull Cardiovascular: regular rate and rhythm, other (S1,S2) Gastrointestinal: normoactive bowel sounds, soft, non-tender, non-distended Integumentary: normal Extremities: no cyanosis, no edema, pink and warm, pulses normal Neurologic: normal mental status, non-focal exam, pupils equal and round, CN II- XII normal, motor strength normal and Psychiatric: mood appropriate, affect normal CBC and BMP: 12/17/20 05:09 12/16/20 05:26 ABG, PT/INR, D-dimer: ABG ABG pH 7.494 (7.320-7.450) H 12/14/20 08:30 POC ABG pCO2 36.7 mmHg (32.0-48.0) 12/14/20 08:30 POC ABG pO2 168.3 mmHg (83-108) H 12/14/20 08:30 POC ABG HCO3 27.6 12/14/20 08:30 ABG O2 Saturation 99.4 (0-100) 12/14/20 08:30 PT/INR, D-dimer PT 13.9 Sec. (12.2-14.9) 12/07/20 04:00 INR 1.02 (0.87-1.13) 12/07/20 04:00 D-Dimer 1838.21 ng/mlDDU (0-234) H 12/04/20 10:41 Abnormal lab findings: Abnormal Labs 11/29/20 11/29/20 11/29/20 07:48 07:48 07:48 WBC 11.3 H RBC Hgb Hct MCH RDW 18.0 H Lymph % (Auto) [place] # (Auto) Seg Neutrophils % Seg Neuts % (Manual) Lymphocytes % (Manual) Seg Neutrophils # 7.9 H Seg Neutrophils # Man Lymphocytes # (Manual) Monocytes # (Manual) Basophils # (Manual) D-Dimer ABG pH POC ABG pCO2 POC ABG pO2 ABG Hemoglobin ABG Oxyhemoglobin ABG Sodium ABG Potassium ABG Chloride ABG Glucose Carboxyhemoglobin Sodium 135 L Potassium Chloride Carbon Dioxide BUN Creatinine Glucose 204 H POC Glucose Calcium Ferritin Lactate Dehydrogenase Total Creatine Kinase CK-MB (CK-2) C-Reactive Protein Total Protein Albumin 3.7 L Arterial Blood Glucose Urine WBC (Auto) Vancomycin Trough Coronavirus (PCR) 11/29/20 11/30/20 11/30/20 11:37 04:27 11:22 WBC RBC Hgb Hct MCH RDW Lymph % (Auto) [place] # (Auto) Seg Neutrophils % Seg Neuts % (Manual) Lymphocytes % (Manual) Seg Neutrophils # Seg Neutrophils # Man Lymphocytes # (Manual) Monocytes # (Manual) Basophils # (Manual) D-Dimer ABG pH 7.318 L POC ABG pCO2 POC ABG pO2 76.1 L 196.4 H ABG Hemoglobin 11.96 L ABG Oxyhemoglobin 92.4 L 98.5 H ABG Sodium 133.7 L ABG Potassium 5.0 H ABG Chloride ABG Glucose 171 H Carboxyhemoglobin 2.5 H Sodium Potassium Chloride Carbon Dioxide BUN Creatinine Glucose POC Glucose 157 H Calcium Ferritin Lactate Dehydrogenase Total Creatine Kinase CK-MB (CK-2) C-Reactive Protein Total Protein Albumin Arterial Blood Glucose 171 H Urine WBC (Auto) Vancomycin Trough Coronavirus (PCR) 11/30/20 11/30/20 11/30/20 14:12 17:19 23:42 WBC RBC Hgb Hct MCH RDW Lymph % (Auto) [place] # (Auto) Seg Neutrophils % Seg Neuts % (Manual) Lymphocytes % (Manual) Seg Neutrophils # Seg Neutrophils # Man Lymphocytes # (Manual) Monocytes # (Manual) Basophils # (Manual) D-Dimer ABG pH POC ABG pCO2 POC ABG pO2 ABG Hemoglobin ABG Oxyhemoglobin ABG Sodium ABG Potassium ABG Chloride ABG Glucose Carboxyhemoglobin Sodium Potassium Chloride Carbon Dioxide BUN Creatinine Glucose POC Glucose 135 H 121 H Calcium Ferritin Lactate Dehydrogenase Total Creatine Kinase 1132 H CK-MB (CK-2) 14.6 H C-Reactive Protein Total Protein Albumin Arterial Blood Glucose Urine WBC (Auto) Vancomycin Trough Coronavirus (PCR) 12/01/20 12/01/20 12/01/20 03:30 04:21 06:16 WBC RBC Hgb Hct MCH RDW Lymph % (Auto) [place] # (Auto) Seg Neutrophils % Seg Neuts % (Manual) Lymphocytes % (Manual) Seg Neutrophils # Seg Neutrophils # Man Lymphocytes # (Manual) Monocytes # (Manual) Basophils # (Manual) D-Dimer ABG pH POC ABG pCO2 POC ABG pO2 37.6 L 76.2 L ABG Hemoglobin 10.4 L 10.8 L ABG Oxyhemoglobin 76.4 L 93.7 L ABG Sodium 112.8 L 110.9 L ABG Potassium ABG Chloride ABG Glucose 103 H 107 H Carboxyhemoglobin Sodium Potassium Chloride Carbon Dioxide BUN Creatinine Glucose POC Glucose 129 H Calcium Ferritin Lactate Dehydrogenase Total Creatine Kinase CK-MB (CK-2) C-Reactive Protein Total Protein Albumin Arterial Blood Glucose 103 H 107 H Urine WBC (Auto) Vancomycin Trough Coronavirus (PCR) 12/02/20 12/02/20 12/02/20 04:00 12:02 17:10 WBC RBC Hgb Hct MCH RDW Lymph % (Auto) [place] # (Auto) Seg Neutrophils % Seg Neuts % (Manual) Lymphocytes % (Manual) Seg Neutrophils # Seg Neutrophils # Man Lymphocytes # (Manual) Monocytes # (Manual) Basophils # (Manual) D-Dimer ABG pH 7.306 L POC ABG pCO2 58.0 H POC ABG pO2 58.5 L ABG Hemoglobin 11.4 L ABG Oxyhemoglobin 86.9 L ABG Sodium 124.7 L ABG Potassium ABG Chloride ABG Glucose 118 H Carboxyhemoglobin Sodium Potassium Chloride Carbon Dioxide BUN Creatinine Glucose POC Glucose 143 H 134 H Calcium Ferritin Lactate Dehydrogenase Total Creatine Kinase CK-MB (CK-2) C-Reactive Protein Total Protein Albumin Arterial Blood Glucose 118 H Urine WBC (Auto) Vancomycin Trough Coronavirus (PCR) 12/03/20 12/03/20 12/04/20 05:10 08:00 03:32 WBC RBC Hgb Hct MCH RDW Lymph % (Auto) [place] # (Auto) Seg Neutrophils % Seg Neuts % (Manual) Lymphocytes % (Manual) Seg Neutrophils # Seg Neutrophils # Man Lymphocytes # (Manual) Monocytes # (Manual) Basophils # (Manual) D-Dimer ABG pH 7.272 L POC ABG pCO2 60.1 H 54.6 H POC ABG pO2 82.8 L 78.6 L ABG Hemoglobin 11.4 L ABG Oxyhemoglobin ABG Sodium 132.2 L 130.2 L ABG Potassium ABG Chloride ABG Glucose 166 H 164 H Carboxyhemoglobin 0.4 L Sodium Potassium Chloride Carbon Dioxide BUN Creatinine Glucose POC Glucose Calcium Ferritin Lactate Dehydrogenase Total Creatine Kinase CK-MB (CK-2) C-Reactive Protein Total Protein Albumin Arterial Blood Glucose 166 H 164 H Urine WBC (Auto) Vancomycin Trough Coronavirus (PCR) Positive A 09/08/1912/04/20 12/04/20 05:40 05:40 07:30 WBC 21.7 H RBC Hgb Hct MCH RDW 18.2 H Lymph % (Auto) [place] # (Auto) Seg Neutrophils % Seg Neuts % (Manual) 74.0 H Lymphocytes % (Manual) 2.0 L Seg Neutrophils # Seg Neutrophils # Man 16.1 H Lymphocytes # (Manual) 0.4 L Monocytes # (Manual) 1.1 H Basophils # (Manual) 0.2 H D-Dimer ABG pH POC ABG pCO2 POC ABG pO2 ABG Hemoglobin ABG Oxyhemoglobin ABG Sodium ABG Potassium ABG Chloride ABG Glucose Carboxyhemoglobin Sodium Potassium Chloride Carbon Dioxide BUN 26 H Creatinine 1.7 H D Glucose 157 H POC Glucose Calcium Ferritin Lactate Dehydrogenase Total Creatine Kinase CK-MB (CK-2) C-Reactive Protein Total Protein 6.2 L Albumin 2.6 L Arterial Blood Glucose Urine WBC (Auto) > 182.0 H Vancomycin Trough Coronavirus (PCR) 12/04/20 12/04/20 12/04/20 10:41 10:41 10:41 WBC RBC Hgb Hct MCH RDW Lymph % (Auto) [place] # (Auto) Seg Neutrophils % Seg Neuts % (Manual) Lymphocytes % (Manual) Seg Neutrophils # Seg Neutrophils # Man Lymphocytes # (Manual) Monocytes # (Manual) Basophils # (Manual) D-Dimer 1838.21 H ABG pH POC ABG pCO2 POC ABG pO2 ABG Hemoglobin ABG Oxyhemoglobin ABG Sodium ABG Potassium ABG Chloride ABG Glucose Carboxyhemoglobin Sodium Potassium Chloride Carbon Dioxide BUN Creatinine Glucose POC Glucose Calcium Ferritin 399.0 H Lactate Dehydrogenase 386 H Total Creatine Kinase CK-MB (CK-2) C-Reactive Protein 34.30 H Total Protein Albumin Arterial Blood Glucose Urine WBC (Auto) Vancomycin Trough Coronavirus (PCR) 12/04/20 12/05/20 12/05/20 23:58 00:10 00:45 WBC RBC Hgb Hct MCH RDW Lymph % (Auto) [place] # (Auto) Seg Neutrophils % Seg Neuts % (Manual) Lymphocytes % (Manual) Seg Neutrophils # Seg Neutrophils # Man Lymphocytes # (Manual) Monocytes # (Manual) Basophils # (Manual) D-Dimer ABG pH POC ABG pCO2 55.5 H POC ABG pO2 ABG Hemoglobin 11.2 L ABG Oxyhemoglobin ABG Sodium 135.0 L ABG Potassium 4.6 H ABG Chloride ABG Glucose 165 H Carboxyhemoglobin Sodium Potassium Chloride Carbon Dioxide BUN Creatinine Glucose POC Glucose 134 H 146 H Calcium Ferritin Lactate Dehydrogenase Total Creatine Kinase CK-MB (CK-2) C-Reactive Protein Total Protein Albumin Arterial Blood Glucose 165 H Urine WBC (Auto) Vancomycin Trough Coronavirus (PCR) 12/05/20 12/05/20 12/05/20 11:04 11:04 11:52 WBC 13.0 H RBC 3.61 L Hgb Hct MCH RDW 18.8 H Lymph % (Auto) 13.1 L [place] # (Auto) 0.9 H Seg Neutrophils % 77.6 H Seg Neuts % (Manual) Lymphocytes % (Manual) Seg Neutrophils # 10.0 H Seg Neutrophils # Man Lymphocytes # (Manual) Monocytes # (Manual) Basophils # (Manual) D-Dimer ABG pH POC ABG pCO2 POC ABG pO2 ABG Hemoglobin ABG Oxyhemoglobin ABG Sodium ABG Potassium ABG Chloride ABG Glucose Carboxyhemoglobin Sodium Potassium Chloride Carbon Dioxide 31 H BUN 21 H Creatinine Glucose 152 H POC Glucose 121 H Calcium Ferritin Lactate Dehydrogenase Total Creatine Kinase CK-MB (CK-2) C-Reactive Protein Total Protein Albumin Arterial Blood Glucose Urine WBC (Auto) Vancomycin Trough Coronavirus (PCR) 12/05/20 12/05/20 12/06/20 17:31 23:37 04:00 WBC RBC Hgb Hct MCH RDW Lymph % (Auto) [place] # (Auto) Seg Neutrophils % Seg Neuts % (Manual) Lymphocytes % (Manual) Seg Neutrophils # Seg Neutrophils # Man Lymphocytes # (Manual) Monocytes # (Manual) Basophils # (Manual) D-Dimer ABG pH 7.471 H POC ABG pCO2 POC ABG pO2 75.2 L ABG Hemoglobin 10.4 L ABG Oxyhemoglobin ABG Sodium 133.7 L ABG Potassium ABG Chloride ABG Glucose 120 H Carboxyhemoglobin Sodium Potassium Chloride Carbon Dioxide BUN Creatinine Glucose POC Glucose 148 H 133 H Calcium Ferritin Lactate Dehydrogenase Total Creatine Kinase CK-MB (CK-2) C-Reactive Protein Total Protein Albumin Arterial Blood Glucose 120 H Urine WBC (Auto) Vancomycin Trough Coronavirus (PCR) 12/06/20 12/06/20 12/06/20 05:07 05:07 05:09 WBC RBC 3.37 L Hgb 9.4 L Hct 28.4 L MCH RDW 18.3 H Lymph % (Auto) [place] # (Auto) Seg Neutrophils % Seg Neuts % (Manual) Lymphocytes % (Manual) Seg Neutrophils # Seg Neutrophils # Man Lymphocytes # (Manual) Monocytes # (Manual) Basophils # (Manual) D-Dimer ABG pH POC ABG pCO2 POC ABG pO2 ABG Hemoglobin ABG Oxyhemoglobin ABG Sodium ABG Potassium ABG Chloride ABG Glucose Carboxyhemoglobin Sodium Potassium Chloride Carbon Dioxide 33 H BUN 25 H Creatinine Glucose 131 H POC Glucose 122 H Calcium Ferritin Lactate Dehydrogenase Total Creatine Kinase CK-MB (CK-2) C-Reactive Protein Total Protein Albumin Arterial Blood Glucose Urine WBC (Auto) Vancomycin Trough Coronavirus (PCR) 12/06/20 12/06/20 12/06/20 11:59 16:17 17:30 WBC RBC Hgb Hct MCH RDW Lymph % (Auto) [place] # (Auto) Seg Neutrophils % Seg Neuts % (Manual) Lymphocytes % (Manual) Seg Neutrophils # Seg Neutrophils # Man Lymphocytes # (Manual) Monocytes # (Manual) Basophils # (Manual) D-Dimer ABG pH POC ABG pCO2 61.8 H POC ABG pO2 180.5 H ABG Hemoglobin ABG Oxyhemoglobin ABG Sodium ABG Potassium ABG Chloride ABG Glucose 142 H Carboxyhemoglobin Sodium Potassium Chloride Carbon Dioxide BUN Creatinine Glucose POC Glucose 120 H 114 H Calcium Ferritin Lactate Dehydrogenase Total Creatine Kinase CK-MB (CK-2) C-Reactive Protein Total Protein Albumin Arterial Blood Glucose 142 H Urine WBC (Auto) Vancomycin Trough Coronavirus (PCR) 12/06/20 12/07/20 12/07/20 23:09 04:00 04:00 WBC RBC 3.47 L Hgb 9.5 L Hct 29.5 L MCH RDW 18.7 H Lymph % (Auto) [place] # (Auto) Seg Neutrophils % Seg Neuts % (Manual) Lymphocytes % (Manual) Seg Neutrophils # Seg Neutrophils # Man Lymphocytes # (Manual) Monocytes # (Manual) Basophils # (Manual) D-Dimer ABG pH POC ABG pCO2 55.9 H POC ABG pO2 ABG Hemoglobin 11.6 L ABG Oxyhemoglobin ABG Sodium 135.2 L ABG Potassium 4.7 H ABG Chloride ABG Glucose 141 H Carboxyhemoglobin Sodium Potassium Chloride Carbon Dioxide BUN Creatinine Glucose POC Glucose 112 H Calcium Ferritin Lactate Dehydrogenase Total Creatine Kinase CK-MB (CK-2) C-Reactive Protein Total Protein Albumin Arterial Blood Glucose 141 H Urine WBC (Auto) Vancomycin Trough Coronavirus (PCR) 12/07/20 12/07/20 12/07/20 05:00 05:28 12:20 WBC RBC Hgb Hct MCH RDW Lymph % (Auto) [place] # (Auto) Seg Neutrophils % Seg Neuts % (Manual) Lymphocytes % (Manual) Seg Neutrophils # Seg Neutrophils # Man Lymphocytes # (Manual) Monocytes # (Manual) Basophils # (Manual) D-Dimer ABG pH POC ABG pCO2 POC ABG pO2 ABG Hemoglobin ABG Oxyhemoglobin ABG Sodium ABG Potassium ABG Chloride ABG Glucose Carboxyhemoglobin Sodium Potassium Chloride 96.6 L Carbon Dioxide 35 H BUN 29 H Creatinine Glucose 148 H POC Glucose 139 H 130 H Calcium Ferritin Lactate Dehydrogenase Total Creatine Kinase CK-MB (CK-2) C-Reactive Protein Total Protein Albumin Arterial Blood Glucose Urine WBC (Auto) Vancomycin Trough Coronavirus (PCR) 12/07/20 12/07/20 12/08/20 16:54 23:15 04:00 WBC RBC Hgb Hct MCH RDW Lymph % (Auto) [place] # (Auto) Seg Neutrophils % Seg Neuts % (Manual) Lymphocytes % (Manual) Seg Neutrophils # Seg Neutrophils # Man Lymphocytes # (Manual) Monocytes # (Manual) Basophils # (Manual) D-Dimer ABG pH POC ABG pCO2 53.4 H POC ABG pO2 ABG Hemoglobin 11.4 L ABG Oxyhemoglobin ABG Sodium ABG Potassium ABG Chloride 96.0 L ABG Glucose 149 H Carboxyhemoglobin Sodium Potassium Chloride Carbon Dioxide BUN Creatinine Glucose POC Glucose 121 H 166 H Calcium Ferritin Lactate Dehydrogenase Total Creatine Kinase CK-MB (CK-2) C-Reactive Protein Total Protein Albumin Arterial Blood Glucose 149 H Urine WBC (Auto) Vancomycin Trough Coronavirus (PCR) 12/08/20 12/08/20 12/08/20 05:29 08:33 08:33 WBC 11.2 H RBC 3.64 L Hgb Hct 30.2 L MCH RDW 18.1 H Lymph % (Auto) [place] # (Auto) Seg Neutrophils % Seg Neuts % (Manual) Lymphocytes % (Manual) Seg Neutrophils # Seg Neutrophils # Man Lymphocytes # (Manual) Monocytes # (Manual) Basophils # (Manual) D-Dimer ABG pH POC ABG pCO2 POC ABG pO2 ABG Hemoglobin ABG Oxyhemoglobin ABG Sodium ABG Potassium ABG Chloride ABG Glucose Carboxyhemoglobin Sodium Potassium Chloride 96.2 L Carbon Dioxide 33 H BUN 31 H Creatinine Glucose 166 H POC Glucose 128 H Calcium 10.3 H Ferritin Lactate Dehydrogenase Total Creatine Kinase CK-MB (CK-2) C-Reactive Protein Total Protein Albumin Arterial Blood Glucose Urine WBC (Auto) Vancomycin Trough Coronavirus (PCR) 12/08/20 12/08/20 12/09/20 11:53 16:46 00:20 WBC RBC Hgb Hct MCH RDW Lymph % (Auto) [place] # (Auto) Seg Neutrophils % Seg Neuts % (Manual) Lymphocytes % (Manual) Seg Neutrophils # Seg Neutrophils # Man Lymphocytes # (Manual) Monocytes # (Manual) Basophils # (Manual) D-Dimer ABG pH POC ABG pCO2 POC ABG pO2 ABG Hemoglobin ABG Oxyhemoglobin ABG Sodium ABG Potassium ABG Chloride ABG Glucose Carboxyhemoglobin Sodium Potassium Chloride Carbon Dioxide BUN Creatinine Glucose POC Glucose 170 H 157 H 164 H Calcium Ferritin Lactate Dehydrogenase Total Creatine Kinase CK-MB (CK-2) C-Reactive Protein Total Protein Albumin Arterial Blood Glucose Urine WBC (Auto) Vancomycin Trough Coronavirus (PCR) 12/09/20 12/09/20 12/09/20 04:00 05:07 05:07 WBC 11.4 H RBC 3.53 L Hgb 9.8 L Hct 29.2 L MCH RDW 17.8 H Lymph % (Auto) [place] # (Auto) Seg Neutrophils % Seg Neuts % (Manual) Lymphocytes % (Manual) Seg Neutrophils # Seg Neutrophils # Man Lymphocytes # (Manual) Monocytes # (Manual) Basophils # (Manual) D-Dimer ABG pH POC ABG pCO2 54.4 H POC ABG pO2 ABG Hemoglobin 10.5 L ABG Oxyhemoglobin ABG Sodium ABG Potassium ABG Chloride ABG Glucose 204 H Carboxyhemoglobin Sodium Potassium Chloride Carbon Dioxide 33 H BUN 38 H Creatinine Glucose 189 H POC Glucose Calcium Ferritin Lactate Dehydrogenase Total Creatine Kinase CK-MB (CK-2) C-Reactive Protein Total Protein Albumin Arterial Blood Glucose 204 H Urine WBC (Auto) Vancomycin Trough Coronavirus (PCR) 12/09/20 12/09/20 12/09/20 05:30 11:57 17:33 WBC RBC Hgb Hct MCH RDW Lymph % (Auto) [place] # (Auto) Seg Neutrophils % Seg Neuts % (Manual) Lymphocytes % (Manual) Seg Neutrophils # Seg Neutrophils # Man Lymphocytes # (Manual) Monocytes # (Manual) Basophils # (Manual) D-Dimer ABG pH POC ABG pCO2 POC ABG pO2 ABG Hemoglobin ABG Oxyhemoglobin ABG Sodium ABG Potassium ABG Chloride ABG Glucose Carboxyhemoglobin Sodium Potassium Chloride Carbon Dioxide BUN Creatinine Glucose POC Glucose 190 H 153 H 180 H Calcium Ferritin Lactate Dehydrogenase Total Creatine Kinase CK-MB (CK-2) C-Reactive Protein Total Protein Albumin Arterial Blood Glucose Urine WBC (Auto) Vancomycin Trough Coronavirus (PCR) 12/10/20 12/10/20 12/10/20 00:28 03:16 05:03 WBC 11.5 H RBC 3.42 L Hgb 9.4 L Hct 29.3 L MCH RDW 17.9 H Lymph % (Auto) [place] # (Auto) Seg Neutrophils % Seg Neuts % (Manual) Lymphocytes % (Manual) Seg Neutrophils # Seg Neutrophils # Man Lymphocytes # (Manual) Monocytes # (Manual) Basophils # (Manual) D-Dimer ABG pH 7.493 H POC ABG pCO2 POC ABG pO2 71.4 L ABG Hemoglobin 9.9 L ABG Oxyhemoglobin ABG Sodium ABG Potassium ABG Chloride ABG Glucose 181 H Carboxyhemoglobin 0.4 L Sodium Potassium Chloride Carbon Dioxide BUN Creatinine Glucose POC Glucose 173 H Calcium Ferritin Lactate Dehydrogenase Total Creatine Kinase CK-MB (CK-2) C-Reactive Protein Total Protein Albumin Arterial Blood Glucose 181 H Urine WBC (Auto) Vancomycin Trough Coronavirus (PCR) 12/10/20 12/10/20 12/10/20 05:03 05:48 11:41 WBC RBC Hgb Hct MCH RDW Lymph % (Auto) [place] # (Auto) Seg Neutrophils % Seg Neuts % (Manual) Lymphocytes % (Manual) Seg Neutrophils # Seg Neutrophils # Man Lymphocytes # (Manual) Monocytes # (Manual) Basophils # (Manual) D-Dimer ABG pH POC ABG pCO2 POC ABG pO2 ABG Hemoglobin ABG Oxyhemoglobin ABG Sodium ABG Potassium ABG Chloride ABG Glucose Carboxyhemoglobin Sodium Potassium Chloride Carbon Dioxide BUN 34 H Creatinine Glucose 174 H POC Glucose 176 H 203 H Calcium Ferritin Lactate Dehydrogenase Total Creatine Kinase CK-MB (CK-2) C-Reactive Protein Total Protein Albumin Arterial Blood Glucose Urine WBC (Auto) Vancomycin Trough Coronavirus (PCR) 12/10/20 12/10/20 12/11/20 16:32 23:27 04:00 WBC RBC Hgb Hct MCH RDW Lymph % (Auto) [place] # (Auto) Seg Neutrophils % Seg Neuts % (Manual) Lymphocytes % (Manual) Seg Neutrophils # Seg Neutrophils # Man Lymphocytes # (Manual) Monocytes # (Manual) Basophils # (Manual) D-Dimer ABG pH 7.517 H POC ABG pCO2 POC ABG pO2 ABG Hemoglobin 10.0 L ABG Oxyhemoglobin ABG Sodium ABG Potassium ABG Chloride ABG Glucose 175 H Carboxyhemoglobin 0.3 L Sodium Potassium Chloride Carbon Dioxide BUN Creatinine Glucose POC Glucose 148 H 186 H Calcium Ferritin Lactate Dehydrogenase Total Creatine Kinase CK-MB (CK-2) C-Reactive Protein Total Protein Albumin Arterial Blood Glucose 175 H Urine WBC (Auto) Vancomycin Trough Coronavirus (PCR) 12/11/20 12/11/20 12/11/20 05:18 06:05 06:05 WBC RBC 3.19 L Hgb 9.0 L Hct 27.1 L MCH RDW 18.0 H Lymph % (Auto) [place] # (Auto) Seg Neutrophils % Seg Neuts % (Manual) Lymphocytes % (Manual) Seg Neutrophils # Seg Neutrophils # Man Lymphocytes # (Manual) Monocytes # (Manual) Basophils # (Manual) D-Dimer ABG pH POC ABG pCO2 POC ABG pO2 ABG Hemoglobin ABG Oxyhemoglobin ABG Sodium ABG Potassium ABG Chloride ABG Glucose Carboxyhemoglobin Sodium Potassium Chloride Carbon Dioxide BUN 33 H Creatinine Glucose 158 H POC Glucose 151 H Calcium Ferritin Lactate Dehydrogenase Total Creatine Kinase CK-MB (CK-2) C-Reactive Protein Total Protein Albumin Arterial Blood Glucose Urine WBC (Auto) Vancomycin Trough Coronavirus (PCR) 12/11/20 12/11/20 12/11/20 12:17 18:07 23:30 WBC RBC Hgb Hct MCH RDW Lymph % (Auto) [place] # (Auto) Seg Neutrophils % Seg Neuts % (Manual) Lymphocytes % (Manual) Seg Neutrophils # Seg Neutrophils # Man Lymphocytes # (Manual) Monocytes # (Manual) Basophils # (Manual) D-Dimer ABG pH POC ABG pCO2 POC ABG pO2 ABG Hemoglobin ABG Oxyhemoglobin ABG Sodium ABG Potassium ABG Chloride ABG Glucose Carboxyhemoglobin Sodium Potassium Chloride Carbon Dioxide BUN Creatinine Glucose POC Glucose 163 H 152 H 144 H Calcium Ferritin Lactate Dehydrogenase Total Creatine Kinase CK-MB (CK-2) C-Reactive Protein Total Protein Albumin Arterial Blood Glucose Urine WBC (Auto) Vancomycin Trough Coronavirus (PCR) 12/12/20 12/12/20 12/12/20 04:00 04:27 11:29 WBC RBC Hgb Hct MCH RDW Lymph % (Auto) [place] # (Auto) Seg Neutrophils % Seg Neuts % (Manual) Lymphocytes % (Manual) Seg Neutrophils # Seg Neutrophils # Man Lymphocytes # (Manual) Monocytes # (Manual) Basophils # (Manual) D-Dimer ABG pH 7.453 H POC ABG pCO2 POC ABG pO2 79.3 L ABG Hemoglobin 9.3 L ABG Oxyhemoglobin ABG Sodium ABG Potassium ABG Chloride ABG Glucose 159 H Carboxyhemoglobin Sodium Potassium Chloride Carbon Dioxide BUN Creatinine Glucose POC Glucose 146 H 135 H Calcium Ferritin Lactate Dehydrogenase Total Creatine Kinase CK-MB (CK-2) C-Reactive Protein Total Protein Albumin Arterial Blood Glucose 159 H Urine WBC (Auto) Vancomycin Trough Coronavirus (PCR) 12/12/20 12/12/20 12/12/20 17:31 18:47 18:47 WBC RBC 3.38 L Hgb 9.3 L Hct 29.3 L MCH RDW 18.8 H Lymph % (Auto) [place] # (Auto) Seg Neutrophils % Seg Neuts % (Manual) Lymphocytes % (Manual) Seg Neutrophils # Seg Neutrophils # Man Lymphocytes # (Manual) Monocytes # (Manual) Basophils # (Manual) D-Dimer ABG pH POC ABG pCO2 POC ABG pO2 ABG Hemoglobin ABG Oxyhemoglobin ABG Sodium ABG Potassium ABG Chloride ABG Glucose Carboxyhemoglobin Sodium Potassium Chloride Carbon Dioxide BUN Creatinine Glucose POC Glucose 145 H Calcium Ferritin Lactate Dehydrogenase Total Creatine Kinase CK-MB (CK-2) C-Reactive Protein Total Protein Albumin Arterial Blood Glucose Urine WBC (Auto) Vancomycin Trough 30.6 H Coronavirus (PCR) 12/12/20 12/13/20 12/13/20 23:38 04:52 04:52 WBC RBC 3.24 L Hgb 9.0 L Hct 27.6 L MCH RDW 17.9 H Lymph % (Auto) [place] # (Auto) Seg Neutrophils % Seg Neuts % (Manual) Lymphocytes % (Manual) Seg Neutrophils # Seg Neutrophils # Man Lymphocytes # (Manual) Monocytes # (Manual) Basophils # (Manual) D-Dimer ABG pH POC ABG pCO2 POC ABG pO2 ABG Hemoglobin ABG Oxyhemoglobin ABG Sodium ABG Potassium ABG Chloride ABG Glucose Carboxyhemoglobin Sodium Potassium Chloride Carbon Dioxide BUN 27 H Creatinine Glucose 157 H POC Glucose 123 H Calcium Ferritin Lactate Dehydrogenase Total Creatine Kinase CK-MB (CK-2) C-Reactive Protein Total Protein Albumin 2.9 L Arterial Blood Glucose Urine WBC (Auto) Vancomycin Trough Coronavirus (PCR) 12/13/20 12/13/20 12/13/20 05:22 11:38 17:36 WBC RBC Hgb Hct MCH RDW Lymph % (Auto) [place] # (Auto) Seg Neutrophils % Seg Neuts % (Manual) Lymphocytes % (Manual) Seg Neutrophils # Seg Neutrophils # Man Lymphocytes # (Manual) Monocytes # (Manual) Basophils # (Manual) D-Dimer ABG pH POC ABG pCO2 POC ABG pO2 ABG Hemoglobin ABG Oxyhemoglobin ABG Sodium ABG Potassium ABG Chloride ABG Glucose Carboxyhemoglobin Sodium Potassium Chloride Carbon Dioxide BUN Creatinine Glucose POC Glucose 176 H 140 H 139 H Calcium Ferritin Lactate Dehydrogenase Total Creatine Kinase CK-MB (CK-2) C-Reactive Protein Total Protein Albumin Arterial Blood Glucose Urine WBC (Auto) Vancomycin Trough Coronavirus (PCR) 12/14/20 12/14/20 12/14/20 00:14 06:11 08:30 WBC RBC Hgb Hct MCH RDW Lymph % (Auto) [place] # (Auto) Seg Neutrophils % Seg Neuts % (Manual) Lymphocytes % (Manual) Seg Neutrophils # Seg Neutrophils # Man Lymphocytes # (Manual) Monocytes # (Manual) Basophils # (Manual) D-Dimer ABG pH 7.494 H POC ABG pCO2 POC ABG pO2 168.3 H ABG Hemoglobin 10.6 L ABG Oxyhemoglobin 98.8 H ABG Sodium ABG Potassium ABG Chloride ABG Glucose 136 H Carboxyhemoglobin 0.3 L Sodium Potassium Chloride Carbon Dioxide BUN Creatinine Glucose POC Glucose 145 H 144 H Calcium Ferritin Lactate Dehydrogenase Total Creatine Kinase CK-MB (CK-2) C-Reactive Protein Total Protein Albumin Arterial Blood Glucose 136 H Urine WBC (Auto) Vancomycin Trough Coronavirus (PCR) 12/14/20 12/14/20 12/14/20 11:43 17:54 23:34 WBC RBC Hgb Hct MCH RDW Lymph % (Auto) [place] # (Auto) Seg Neutrophils % Seg Neuts % (Manual) Lymphocytes % (Manual) Seg Neutrophils # Seg Neutrophils # Man Lymphocytes # (Manual) Monocytes # (Manual) Basophils # (Manual) D-Dimer ABG pH POC ABG pCO2 POC ABG pO2 ABG Hemoglobin ABG Oxyhemoglobin ABG Sodium ABG Potassium ABG Chloride ABG Glucose Carboxyhemoglobin Sodium Potassium Chloride Carbon Dioxide BUN Creatinine Glucose POC Glucose 146 H 133 H 139 H Calcium Ferritin Lactate Dehydrogenase Total Creatine Kinase CK-MB (CK-2) C-Reactive Protein Total Protein Albumin Arterial Blood Glucose Urine WBC (Auto) Vancomycin Trough Coronavirus (PCR) 12/14/20 12/15/20 12/15/20 Unknown 05:55 11:34 WBC RBC Hgb Hct MCH RDW Lymph % (Auto) [place] # (Auto) Seg Neutrophils % Seg Neuts % (Manual) Lymphocytes % (Manual) Seg Neutrophils # Seg Neutrophils # Man Lymphocytes # (Manual) Monocytes # (Manual) Basophils # (Manual) D-Dimer ABG pH POC ABG pCO2 POC ABG pO2 ABG Hemoglobin ABG Oxyhemoglobin ABG Sodium ABG Potassium ABG Chloride ABG Glucose Carboxyhemoglobin Sodium Potassium Chloride Carbon Dioxide BUN 19 H Creatinine Glucose 146 H POC Glucose 121 H 152 H Calcium Ferritin Lactate Dehydrogenase Total Creatine Kinase CK-MB (CK-2) C-Reactive Protein Total Protein Albumin Arterial Blood Glucose Urine WBC (Auto) Vancomycin Trough Coronavirus (PCR) 12/16/20 12/16/20 12/16/20 00:01 04:44 05:26 WBC 13.5 H RBC Hgb Hct MCH 27 L RDW 19.0 H Lymph % (Auto) [place] # (Auto) Seg Neutrophils % Seg Neuts % (Manual) Lymphocytes % (Manual) Seg Neutrophils # Seg Neutrophils # Man Lymphocytes # (Manual) Monocytes # (Manual) Basophils # (Manual) D-Dimer ABG pH POC ABG pCO2 POC ABG pO2 ABG Hemoglobin ABG Oxyhemoglobin ABG Sodium ABG Potassium ABG Chloride ABG Glucose Carboxyhemoglobin Sodium Potassium Chloride Carbon Dioxide BUN Creatinine Glucose POC Glucose 129 H 117 H Calcium Ferritin Lactate Dehydrogenase Total Creatine Kinase CK-MB (CK-2) C-Reactive Protein Total Protein Albumin Arterial Blood Glucose Urine WBC (Auto) Vancomycin Trough Coronavirus (PCR) 12/16/20 12/16/20 05:26 07:43 WBC RBC Hgb Hct MCH RDW Lymph % (Auto) [place] # (Auto) Seg Neutrophils % Seg Neuts % (Manual) Lymphocytes % (Manual) Seg Neutrophils # Seg Neutrophils # Man Lymphocytes # (Manual) Monocytes # (Manual) Basophils # (Manual) D-Dimer ABG pH POC ABG pCO2 POC ABG pO2 ABG Hemoglobin ABG Oxyhemoglobin ABG Sodium ABG Potassium ABG Chloride ABG Glucose Carboxyhemoglobin Sodium Potassium 3.2 L D Chloride Carbon Dioxide BUN 24 H Creatinine Glucose 117 H POC Glucose 109 H Calcium 10.8 H Ferritin Lactate Dehydrogenase Total Creatine Kinase CK-MB (CK-2) C-Reactive Protein Total Protein 8.7 H D Albumin Arterial Blood Glucose Urine WBC (Auto) Vancomycin Trough Coronavirus (PCR) Allied health notes reviewed: nursing
[2020-12-16] MEDS: GABAPENTIN 500 MG/10 ML ORAL LIQD PO SCH ×4 (10:33→23:38)
[2020-12-16] MEDS: FAMOTIDINE 20 MG/2 ML INJ IV SCH ×3 (12:55→21:27)
[2020-12-16] MEDS: SCOPOLAMINE TRANSDERMAL PATCH 72 HR TD SCH (12:55)
[2020-12-16] MEDS: QUEtiapine 100 MG TAB PO SCH ×4 (12:55→21:26)
--- NOTE | 2020-12-16 15:32 | XRay Report ---
ABDOMEN SUPINE INDICATION / CLINICAL INFORMATION: Complains of abdominal pain. COMPARISON: None available. FINDINGS: TUBES / LINES: None. BOWEL GAS PATTERN: No dilated loops of bowel are seen. There is mild gaseous distention of the stomac h. FREE AIR / EXTRALUMINAL GAS: None seen. ADDITIONAL FINDINGS: No significant additional findings. IMPRESSION: 1. No radiographic evidence of acute abdomen. Signer Name: Montrell Mclaughlin MD Signed: 12/16/2020 3:28 PM Workstation Name: [id number]
[2020-12-16] MEDS: PIPERACIL/TAZOBACTA 4.5/NS 100 4.5 GM/100 ML VIAL IV SCH ×2 (20:32→21:30)
[2020-12-16] MEDS: FONDAPARINUX 2.5 MG/0.5 ML INJ SUB-Q SCH ×2 (20:33→21:27)
[2020-12-16] MEDS: MONTELUKAST 10 MG TAB PO SCH ×2 (20:34→21:26)
[2020-12-16] MEDS: hydrALAZINE 20 MG/1 ML INJ IV PRN (23:38)
[2020-12-17] MEDS: INSULIN REGULAR, HUMAN 100 UNITS/1 ML SUB-Q SCH ×3 (02:39→12:00)
[2020-12-17] MEDS: QUEtiapine 100 MG TAB PO SCH ×2 (05:20→15:34)
[2020-12-17 05:46] LABS: Hematocrit 35.5 % (30.3-42.9); Hemoglobin 11.8 gm/dl (10.1-14.3); Mean Corpuscular HGB Conc 33 % (30-34); Mean Corpuscular Volume 85 fl (79-97); Platelet Count 313 K/mm3 (140-440); Red Blood Count 4.18 M/mm3 (3.65-5.03); Red Cell Distribution Width 19.3 % (13.2-15.2)
[2020-12-17 06:04] LABS: BUN/Creatinine Ratio 21; Blood Urea Nitrogen 19 mg/dL (7-17); Calcium 9.8 mg/dL (8.4-10.2); Hemolysis Index 4
[2020-12-17] MEDS: GLYCOPYRROLATE 2 MG TAB PO SCH ×2 (09:46→15:37)
[2020-12-17] MEDS: ZINC SULFATE 220 MG CAP PO SCH ×2 (09:46→10:16)
[2020-12-17] MEDS: FAMOTIDINE 20 MG/2 ML INJ IV SCH (09:46)
[2020-12-17] MEDS: GABAPENTIN 500 MG/10 ML ORAL LIQD PO SCH (09:47)
[2020-12-17] MEDS: ASCORBIC ACID 500 MG TAB PO SCH (09:47)
[2020-12-17] MEDS: hydroCHLOROthiazide 12.5 MG CAP PO SCH (09:48)
[2020-12-17] MEDS: SENNOSIDES/DOCUSATE SODIUM 8.6/50 MG TAB FEEDTUBE SCH (09:48)
[2020-12-17] MEDS: DOXEPIN 25 MG CAP PO SCH (09:49)
--- NOTE | 2020-12-17 09:49 | Progress Note ---
Assessment and Plan Acute hypoxemic respiratory failure s/p MVS Angioedema Morbid obesity Mild leukocytosis- resolved Hypertension. h/o alpha-gal syndrome s/p Cardiopulmonary arrest with ROSC Nausea -Continue Scopolamine patch to help with nausea, discussed with hospitalist service at the bedside - continue accuchecks with glycemic control per SSI (Target blood glucose of 140-180 mg/dL; avoid hypoglycemia) - avoid nephrotoxins, renally dose all medications - continue to avoid benzodiazepines, reduce the possibility of delirium - Maintenance of sleep-wake cycle, avoid delirium -Stress ulcer and VTE prophylaxis - PT/OT/ROM exercises - continue mobility protocol, off loading, frequent turning per facility protocol for pressure ulcer prevention - Monitor hemodynamics closely - continue other care per attending / other consultants -Discharge planning COVID SPECIFIC INTERVENTIONS - Contact and airborne isolation per facility protocol - Remdesivir not indicated as per ID/Pulmonary developed protocols - No steroids secondary to stage of illness and Solumedrol allergy - Anticoagulation per system Protocol based on d-dimer and clinical conside rations (VTE prophylaxis) Subjective Date of service: 12/17/20 Principal diagnosis: Acute Hypoxemic Respiratory Failure; Angioedema;Obesity; leukocytosis Interval history: 39-year-old female with HTN, migraines, asthma, peripheral neuropathy, morbid obesity, severe tracheostenosis, hereditary idiopathic angioedema and urticia, alphagal syndrome s/p multiple intubations and tracheostomy being admitted for acute hypoxic respiratory failure, hypertensive urgency and COVID-19 pneumonia. Patient is seen today for: Acute hypoxemic respiratory failure; Angioedema; Mor bid obesity; leukocytosis; HTN; H/O alpha-gal syndrome Seen and examined at bedside; 24hour events reviewed; nursing and respiratory care staff consulted; no adverse overnight events reported to me; resting in bed; resting peacefully in bed, not requiring any oxygen supplementation; Denies any chest pain, no shortness of breath, no fevers or chills. Objective Vital Signs - 12hr 12/16/20 12/16/20 12/16/20 21:58 22:08 23:38 Temperature 99.4 F Pulse Rate 90 90 Respiratory 20 Rate Blood Pressure 171/94 171/94 O2 Sat by Pulse 97 94 Oximetry 12/17/20 12/17/20 12/17/20 00:07 05:43 09:24 Temperature 99.7 F H Pulse Rate 113 H Respiratory 20 20 Rate Blood Pressure 156/88 O2 Sat by Pulse 96 92 92 Oximetry Constitutional: no acute distress, alert, other (young obese female with normal respiratory effort at rest) Eyes: non-icteric ENT: oropharynx moist Neck: supple, no lymphadenopathy, no JVD Effort: normal Ascultation: Bilateral: clear, diminished breath sounds, rales (coarse ), rhonchi (scant) Percussion: Bilateral: not dull Cardiovascular: regular rate and rhythm, other (S1,S2) Gastrointestinal: normoactive bowel sounds, soft, non-tender, non-distended Integumentary: normal Extremities: no cyanosis, no edema, pink and warm, pulses normal Neurologic: normal mental status, non-focal exam, pupils equal and round, CN II- XII normal, motor strength normal and Psychiatric: mood appropriate, affect normal CBC and BMP: 12/17/20 05:09 12/17/20 05:09 ABG, PT/INR, D-dimer: ABG ABG pH 7.494 (7.320-7.450) H 12/14/20 08:30 POC ABG pCO2 36.7 mmHg (32.0-48.0) 12/14/20 08:30 POC ABG pO2 168.3 mmHg (83-108) H 12/14/20 08:30 POC ABG HCO3 27.6 12/14/20 08:30 ABG O2 Saturation 99.4 (0-100) 12/14/20 08:30 PT/INR, D-dimer PT 13.9 Sec. (12.2-14.9) 12/07/20 04:00 INR 1.02 (0.87-1.13) 12/07/20 04:00 D-Dimer 1838.21 ng/mlDDU (0-234) H 12/04/20 10:41 Abnormal lab findings: Abnormal Labs 11/29/20 11/29/20 11/29/20 07:48 07:48 07:48 WBC 11.3 H RBC Hgb Hct MCH RDW 18.0 H Lymph % (Auto) [place] # (Auto) Seg Neutrophils % Seg Neuts % (Manual) Lymphocytes % (Manual) Seg Neutrophils # 7.9 H Seg Neutrophils # Man Lymphocytes # (Manual) Monocytes # (Manual) Basophils # (Manual) D-Dimer ABG pH POC ABG pCO2 POC ABG pO2 ABG Hemoglobin ABG Oxyhemoglobin ABG Sodium ABG Potassium ABG Chloride ABG Glucose Carboxyhemoglobin Sodium 135 L Potassium Chloride Carbon Dioxide BUN Creatinine Glucose 204 H POC Glucose Calcium Ferritin Lactate Dehydrogenase Total Creatine Kinase CK-MB (CK-2) C-Reactive Protein Total Protein Albumin 3.7 L Arterial Blood Glucose Urine WBC (Auto) Vancomycin Trough Coronavirus (PCR) 11/29/20 11/30/20 11/30/20 11:37 04:27 11:22 WBC RBC Hgb Hct MCH RDW Lymph % (Auto) [place] # (Auto) Seg Neutrophils % Seg Neuts % (Manual) Lymphocytes % (Manual) Seg Neutrophils # Seg Neutrophils # Man Lymphocytes # (Manual) Monocytes # (Manual) Basophils # (Manual) D-Dimer ABG pH 7.318 L POC ABG pCO2 POC ABG pO2 76.1 L 196.4 H ABG Hemoglobin 11.96 L ABG Oxyhemoglobin 92.4 L 98.5 H ABG Sodium 133.7 L ABG Potassium 5.0 H ABG Chloride ABG Glucose 171 H Carboxyhemoglobin 2.5 H Sodium Potassium Chloride Carbon Dioxide BUN Creatinine Glucose POC Glucose 157 H Calcium Ferritin Lactate Dehydrogenase Total Creatine Kinase CK-MB (CK-2) C-Reactive Protein Total Protein Albumin Arterial Blood Glucose 171 H Urine WBC (Auto) Vancomycin Trough Coronavirus (PCR) 11/30/20 11/30/20 11/30/20 14:12 17:19 23:42 WBC RBC Hgb Hct MCH RDW Lymph % (Auto) [place] # (Auto) Seg Neutrophils % Seg Neuts % (Manual) Lymphocytes % (Manual) Seg Neutrophils # Seg Neutrophils # Man Lymphocytes # (Manual) Monocytes # (Manual) Basophils # (Manual) D-Dimer ABG pH POC ABG pCO2 POC ABG pO2 ABG Hemoglobin ABG Oxyhemoglobin ABG Sodium ABG Potassium ABG Chloride ABG Glucose Carboxyhemoglobin Sodium Potassium Chloride Carbon Dioxide BUN Creatinine Glucose POC Glucose 135 H 121 H Calcium Ferritin Lactate Dehydrogenase Total Creatine Kinase 1132 H CK-MB (CK-2) 14.6 H C-Reactive Protein Total Protein Albumin Arterial Blood Glucose Urine WBC (Auto) Vancomycin Trough Coronavirus (PCR) 12/01/20 12/01/20 12/01/20 03:30 04:21 06:16 WBC RBC Hgb Hct MCH RDW Lymph % (Auto) [place] # (Auto) Seg Neutrophils % Seg Neuts % (Manual) Lymphocytes % (Manual) Seg Neutrophils # Seg Neutrophils # Man Lymphocytes # (Manual) Monocytes # (Manual) Basophils # (Manual) D-Dimer ABG pH POC ABG pCO2 POC ABG pO2 37.6 L 76.2 L ABG Hemoglobin 10.4 L 10.8 L ABG Oxyhemoglobin 76.4 L 93.7 L ABG Sodium 112.8 L 110.9 L ABG Potassium ABG Chloride ABG Glucose 103 H 107 H Carboxyhemoglobin Sodium Potassium Chloride Carbon Dioxide BUN Creatinine Glucose POC Glucose 129 H Calcium Ferritin Lactate Dehydrogenase Total Creatine Kinase CK-MB (CK-2) C-Reactive Protein Total Protein Albumin Arterial Blood Glucose 103 H 107 H Urine WBC (Auto) Vancomycin Trough Coronavirus (PCR) 12/02/20 12/02/20 12/02/20 04:00 12:02 17:10 WBC RBC Hgb Hct MCH RDW Lymph % (Auto) [place] # (Auto) Seg Neutrophils % Seg Neuts % (Manual) Lymphocytes % (Manual) Seg Neutrophils # Seg Neutrophils # Man Lymphocytes # (Manual) Monocytes # (Manual) Basophils # (Manual) D-Dimer ABG pH 7.306 L POC ABG pCO2 58.0 H POC ABG pO2 58.5 L ABG Hemoglobin 11.4 L ABG Oxyhemoglobin 86.9 L ABG Sodium 124.7 L ABG Potassium ABG Chloride ABG Glucose 118 H Carboxyhemoglobin Sodium Potassium Chloride Carbon Dioxide BUN Creatinine Glucose POC Glucose 143 H 134 H Calcium Ferritin Lactate Dehydrogenase Total Creatine Kinase CK-MB (CK-2) C-Reactive Protein Total Protein Albumin Arterial Blood Glucose 118 H Urine WBC (Auto) Vancomycin Trough Coronavirus (PCR) 12/03/20 12/03/20 12/04/20 05:10 08:00 03:32 WBC RBC Hgb Hct MCH RDW Lymph % (Auto) [place] # (Auto) Seg Neutrophils % Seg Neuts % (Manual) Lymphocytes % (Manual) Seg Neutrophils # Seg Neutrophils # Man Lymphocytes # (Manual) Monocytes # (Manual) Basophils # (Manual) D-Dimer ABG pH 7.272 L POC ABG pCO2 60.1 H 54.6 H POC ABG pO2 82.8 L 78.6 L ABG Hemoglobin 11.4 L ABG Oxyhemoglobin ABG Sodium 132.2 L 130.2 L ABG Potassium ABG Chloride ABG Glucose 166 H 164 H Carboxyhemoglobin 0.4 L Sodium Potassium Chloride Carbon Dioxide BUN Creatinine Glucose POC Glucose Calcium Ferritin Lactate Dehydrogenase Total Creatine Kinase CK-MB (CK-2) C-Reactive Protein Total Protein Albumin Arterial Blood Glucose 166 H 164 H Urine WBC (Auto) Vancomycin Trough Coronavirus (PCR) Positive A 12/04/20 12/04/20 12/04/20 05:40 05:40 07:30 WBC 21.7 H RBC Hgb Hct MCH RDW 18.2 H Lymph % (Auto) [place] # (Auto) Seg Neutrophils % Seg Neuts % (Manual) 74.0 H Lymphocytes % (Manual) 2.0 L Seg Neutrophils # Seg Neutrophils # Man 16.1 H Lymphocytes # (Manual) 0.4 L Monocytes # (Manual) 1.1 H Basophils # (Manual) 0.2 H D-Dimer ABG pH POC ABG pCO2 POC ABG pO2 ABG Hemoglobin ABG Oxyhemoglobin ABG Sodium ABG Potassium ABG Chloride ABG Glucose Carboxyhemoglobin Sodium Potassium Chloride Carbon Dioxide BUN 26 H Creatinine 1.7 H D Glucose 157 H POC Glucose Calcium Ferritin Lactate Dehydrogenase Total Creatine Kinase CK-MB (CK-2) C-Reactive Protein Total Protein 6.2 L Albumin 2.6 L Arterial Blood Glucose Urine WBC (Auto) > 182.0 H Vancomycin Trough Coronavirus (PCR) 12/04/20 12/04/20 12/04/20 10:41 10:41 10:41 WBC RBC Hgb Hct MCH RDW Lymph % (Auto) [place] # (Auto) Seg Neutrophils % Seg Neuts % (Manual) Lymphocytes % (Manual) Seg Neutrophils # Seg Neutrophils # Man Lymphocytes # (Manual) Monocytes # (Manual) Basophils # (Manual) D-Dimer 1838.21 H ABG pH POC ABG pCO2 POC ABG pO2 ABG Hemoglobin ABG Oxyhemoglobin ABG Sodium ABG Potassium ABG Chloride ABG Glucose Carboxyhemoglobin Sodium Potassium Chloride Carbon Dioxide BUN Creatinine Glucose POC Glucose Calcium Ferritin 399.0 H Lactate Dehydrogenase 386 H Total Creatine Kinase CK-MB (CK-2) C-Reactive Protein 34.30 H Total Protein Albumin Arterial Blood Glucose Urine WBC (Auto) Vancomycin Trough Coronavirus (PCR) 12/04/20 12/05/20 12/05/20 23:58 00:10 00:45 WBC RBC Hgb Hct MCH RDW Lymph % (Auto) [place] # (Auto) Seg Neutrophils % Seg Neuts % (Manual) Lymphocytes % (Manual) Seg Neutrophils # Seg Neutrophils # Man Lymphocytes # (Manual) Monocytes # (Manual) Basophils # (Manual) D-Dimer ABG pH POC ABG pCO2 55.5 H POC ABG pO2 ABG Hemoglobin 11.2 L ABG Oxyhemoglobin ABG Sodium 135.0 L ABG Potassium 4.6 H ABG Chloride ABG Glucose 165 H Carboxyhemoglobin Sodium Potassium Chloride Carbon Dioxide BUN Creatinine Glucose POC Glucose 134 H 146 H Calcium Ferritin Lactate Dehydrogenase Total Creatine Kinase CK-MB (CK-2) C-Reactive Protein Total Protein Albumin Arterial Blood Glucose 165 H Urine WBC (Auto) Vancomycin Trough Coronavirus (PCR) 12/05/20 12/05/20 12/05/20 11:04 11:04 11:52 WBC 13.0 H RBC 3.61 L Hgb Hct MCH RDW 18.8 H Lymph % (Auto) 13.1 L [place] # (Auto) 0.9 H Seg Neutrophils % 77.6 H Seg Neuts % (Manual) Lymphocytes % (Manual) Seg Neutrophils # 10.0 H Seg Neutrophils # Man Lymphocytes # (Manual) Monocytes # (Manual) Basophils # (Manual) D-Dimer ABG pH POC ABG pCO2 POC ABG pO2 ABG Hemoglobin ABG Oxyhemoglobin ABG Sodium ABG Potassium ABG Chloride ABG Glucose Carboxyhemoglobin Sodium Potassium Chloride Carbon Dioxide 31 H BUN 21 H Creatinine Glucose 152 H POC Glucose 121 H Calcium Ferritin Lactate Dehydrogenase Total Creatine Kinase CK-MB (CK-2) C-Reactive Protein Total Protein Albumin Arterial Blood Glucose Urine WBC (Auto) Vancomycin Trough Coronavirus (PCR) 12/05/20 12/05/20 12/06/20 17:31 23:37 04:00 WBC RBC Hgb Hct MCH RDW Lymph % (Auto) [place] # (Auto) Seg Neutrophils % Seg Neuts % (Manual) Lymphocytes % (Manual) Seg Neutrophils # Seg Neutrophils # Man Lymphocytes # (Manual) Monocytes # (Manual) Basophils # (Manual) D-Dimer ABG pH 7.471 H POC ABG pCO2 POC ABG pO2 75.2 L ABG Hemoglobin 10.4 L ABG Oxyhemoglobin ABG Sodium 133.7 L ABG Potassium ABG Chloride ABG Glucose 120 H Carboxyhemoglobin Sodium Potassium Chloride Carbon Dioxide BUN Creatinine Glucose POC Glucose 148 H 133 H Calcium Ferritin Lactate Dehydrogenase Total Creatine Kinase CK-MB (CK-2) C-Reactive Protein Total Protein Albumin Arterial Blood Glucose 120 H Urine WBC (Auto) Vancomycin Trough Coronavirus (PCR) 12/06/20 12/06/20 12/06/20 05:07 05:07 05:09 WBC RBC 3.37 L Hgb 9.4 L Hct 28.4 L MCH RDW 18.3 H Lymph % (Auto) [place] # (Auto) Seg Neutrophils % Seg Neuts % (Manual) Lymphocytes % (Manual) Seg Neutrophils # Seg Neutrophils # Man Lymphocytes # (Manual) Monocytes # (Manual) Basophils # (Manual) D-Dimer ABG pH POC ABG pCO2 POC ABG pO2 ABG Hemoglobin ABG Oxyhemoglobin ABG Sodium ABG Potassium ABG Chloride ABG Glucose Carboxyhemoglobin Sodium Potassium Chloride Carbon Dioxide 33 H BUN 25 H Creatinine Glucose 131 H POC Glucose 122 H Calcium Ferritin Lactate Dehydrogenase Total Creatine Kinase CK-MB (CK-2) C-Reactive Protein Total Protein Albumin Arterial Blood Glucose Urine WBC (Auto) Vancomycin Trough Coronavirus (PCR) 12/06/20 12/06/20 12/06/20 11:59 16:17 17:30 WBC RBC Hgb Hct MCH RDW Lymph % (Auto) [place] # (Auto) Seg Neutrophils % Seg Neuts % (Manual) Lymphocytes % (Manual) Seg Neutrophils # Seg Neutrophils # Man Lymphocytes # (Manual) Monocytes # (Manual) Basophils # (Manual) D-Dimer ABG pH POC ABG pCO2 61.8 H POC ABG pO2 180.5 H ABG Hemoglobin ABG Oxyhemoglobin ABG Sodium ABG Potassium ABG Chloride ABG Glucose 142 H Carboxyhemoglobin Sodium Potassium Chloride Carbon Dioxide BUN Creatinine Glucose POC Glucose 120 H 114 H Calcium Ferritin Lactate Dehydrogenase Total Creatine Kinase CK-MB (CK-2) C-Reactive Protein Total Protein Albumin Arterial Blood Glucose 142 H Urine WBC (Auto) Vancomycin Trough Coronavirus (PCR) 12/06/20 12/07/20 12/07/20 23:09 04:00 04:00 WBC RBC 3.47 L Hgb 9.5 L Hct 29.5 L MCH RDW 18.7 H Lymph % (Auto) [place] # (Auto) Seg Neutrophils % Seg Neuts % (Manual) Lymphocytes % (Manual) Seg Neutrophils # Seg Neutrophils # Man Lymphocytes # (Manual) Monocytes # (Manual) Basophils # (Manual) D-Dimer ABG pH POC ABG pCO2 55.9 H POC ABG pO2 ABG Hemoglobin 11.6 L ABG Oxyhemoglobin ABG Sodium 135.2 L ABG Potassium 4.7 H ABG Chloride ABG Glucose 141 H Carboxyhemoglobin Sodium Potassium Chloride Carbon Dioxide BUN Creatinine Glucose POC Glucose 112 H Calcium Ferritin Lactate Dehydrogenase Total Creatine Kinase CK-MB (CK-2) C-Reactive Protein Total Protein Albumin Arterial Blood Glucose 141 H Urine WBC (Auto) Vancomycin Trough Coronavirus (PCR) 12/07/20 12/07/20 12/07/20 05:00 05:28 12:20 WBC RBC Hgb Hct MCH RDW Lymph % (Auto) [place] # (Auto) Seg Neutrophils % Seg Neuts % (Manual) Lymphocytes % (Manual) Seg Neutrophils # Seg Neutrophils # Man Lymphocytes # (Manual) Monocytes # (Manual) Basophils # (Manual) D-Dimer ABG pH POC ABG pCO2 POC ABG pO2 ABG Hemoglobin ABG Oxyhemoglobin ABG Sodium ABG Potassium ABG Chloride ABG Glucose Carboxyhemoglobin Sodium Potassium Chloride 96.6 L Carbon Dioxide 35 H BUN 29 H Creatinine Glucose 148 H POC Glucose 139 H 130 H Calcium Ferritin Lactate Dehydrogenase Total Creatine Kinase CK-MB (CK-2) C-Reactive Protein Total Protein Albumin Arterial Blood Glucose Urine WBC (Auto) Vancomycin Trough Coronavirus (PCR) 12/07/20 12/07/20 12/08/20 16:54 23:15 04:00 WBC RBC Hgb Hct MCH RDW Lymph % (Auto) [place] # (Auto) Seg Neutrophils % Seg Neuts % (Manual) Lymphocytes % (Manual) Seg Neutrophils # Seg Neutrophils # Man Lymphocytes # (Manual) Monocytes # (Manual) Basophils # (Manual) D-Dimer ABG pH POC ABG pCO2 53.4 H POC ABG pO2 ABG Hemoglobin 11.4 L ABG Oxyhemoglobin ABG Sodium ABG Potassium ABG Chloride 96.0 L ABG Glucose 149 H Carboxyhemoglobin Sodium Potassium Chloride Carbon Dioxide BUN Creatinine Glucose POC Glucose 121 H 166 H Calcium Ferritin Lactate Dehydrogenase Total Creatine Kinase CK-MB (CK-2) C-Reactive Protein Total Protein Albumin Arterial Blood Glucose 149 H Urine WBC (Auto) Vancomycin Trough Coronavirus (PCR) 12/08/20 12/08/20 12/08/20 05:29 08:33 08:33 WBC 11.2 H RBC 3.64 L Hgb Hct 30.2 L MCH RDW 18.1 H Lymph % (Auto) [place] # (Auto) Seg Neutrophils % Seg Neuts % (Manual) Lymphocytes % (Manual) Seg Neutrophils # Seg Neutrophils # Man Lymphocytes # (Manual) Monocytes # (Manual) Basophils # (Manual) D-Dimer ABG pH POC ABG pCO2 POC ABG pO2 ABG Hemoglobin ABG Oxyhemoglobin ABG Sodium ABG Potassium ABG Chloride ABG Glucose Carboxyhemoglobin Sodium Potassium Chloride 96.2 L Carbon Dioxide 33 H BUN 31 H Creatinine Glucose 166 H POC Glucose 128 H Calcium 10.3 H Ferritin Lactate Dehydrogenase Total Creatine Kinase CK-MB (CK-2) C-Reactive Protein Total Protein Albumin Arterial Blood Glucose Urine WBC (Auto) Vancomycin Trough Coronavirus (PCR) 12/08/20 12/08/20 12/09/20 11:53 16:46 00:20 WBC RBC Hgb Hct MCH RDW Lymph % (Auto) [place] # (Auto) Seg Neutrophils % Seg Neuts % (Manual) Lymphocytes % (Manual) Seg Neutrophils # Seg Neutrophils # Man Lymphocytes # (Manual) Monocytes # (Manual) Basophils # (Manual) D-Dimer ABG pH POC ABG pCO2 POC ABG pO2 ABG Hemoglobin ABG Oxyhemoglobin ABG Sodium ABG Potassium ABG Chloride ABG Glucose Carboxyhemoglobin Sodium Potassium Chloride Carbon Dioxide BUN Creatinine Glucose POC Glucose 170 H 157 H 164 H Calcium Ferritin Lactate Dehydrogenase Total Creatine Kinase CK-MB (CK-2) C-Reactive Protein Total Protein Albumin Arterial Blood Glucose Urine WBC (Auto) Vancomycin Trough Coronavirus (PCR) 12/09/20 12/09/20 12/09/20 04:00 05:07 05:07 WBC 11.4 H RBC 3.53 L Hgb 9.8 L Hct 29.2 L MCH RDW 17.8 H Lymph % (Auto) [place] # (Auto) Seg Neutrophils % Seg Neuts % (Manual) Lymphocytes % (Manual) Seg Neutrophils # Seg Neutrophils # Man Lymphocytes # (Manual) Monocytes # (Manual) Basophils # (Manual) D-Dimer ABG pH POC ABG pCO2 54.4 H POC ABG pO2 ABG Hemoglobin 10.5 L ABG Oxyhemoglobin ABG Sodium ABG Potassium ABG Chloride ABG Glucose 204 H Carboxyhemoglobin Sodium Potassium Chloride Carbon Dioxide 33 H BUN 38 H Creatinine Glucose 189 H POC Glucose Calcium Ferritin Lactate Dehydrogenase Total Creatine Kinase CK-MB (CK-2) C-Reactive Protein Total Protein Albumin Arterial Blood Glucose 204 H Urine WBC (Auto) Vancomycin Trough Coronavirus (PCR) 12/09/20 12/09/20 12/09/20 05:30 11:57 17:33 WBC RBC Hgb Hct MCH RDW Lymph % (Auto) [place] # (Auto) Seg Neutrophils % Seg Neuts % (Manual) Lymphocytes % (Manual) Seg Neutrophils # Seg Neutrophils # Man Lymphocytes # (Manual) Monocytes # (Manual) Basophils # (Manual) D-Dimer ABG pH POC ABG pCO2 POC ABG pO2 ABG Hemoglobin ABG Oxyhemoglobin ABG Sodium ABG Potassium ABG Chloride ABG Glucose Carboxyhemoglobin Sodium Potassium Chloride Carbon Dioxide BUN Creatinine Glucose POC Glucose 190 H 153 H 180 H Calcium Ferritin Lactate Dehydrogenase Total Creatine Kinase CK-MB (CK-2) C-Reactive Protein Total Protein Albumin Arterial Blood Glucose Urine WBC (Auto) Vancomycin Trough Coronavirus (PCR) 12/10/20 12/10/20 12/10/20 00:28 03:16 05:03 WBC 11.5 H RBC 3.42 L Hgb 9.4 L Hct 29.3 L MCH RDW 17.9 H Lymph % (Auto) [place] # (Auto) Seg Neutrophils % Seg Neuts % (Manual) Lymphocytes % (Manual) Seg Neutrophils # Seg Neutrophils # Man Lymphocytes # (Manual) Monocytes # (Manual) Basophils # (Manual) D-Dimer ABG pH 7.493 H POC ABG pCO2 POC ABG pO2 71.4 L ABG Hemoglobin 9.9 L ABG Oxyhemoglobin ABG Sodium ABG Potassium ABG Chloride ABG Glucose 181 H Carboxyhemoglobin 0.4 L Sodium Potassium Chloride Carbon Dioxide BUN Creatinine Glucose POC Glucose 173 H Calcium Ferritin Lactate Dehydrogenase Total Creatine Kinase CK-MB (CK-2) C-Reactive Protein Total Protein Albumin Arterial Blood Glucose 181 H Urine WBC (Auto) Vancomycin Trough Coronavirus (PCR) 12/10/20 12/10/20 12/10/20 05:03 05:48 11:41 WBC RBC Hgb Hct MCH RDW Lymph % (Auto) [place] # (Auto) Seg Neutrophils % Seg Neuts % (Manual) Lymphocytes % (Manual) Seg Neutrophils # Seg Neutrophils # Man Lymphocytes # (Manual) Monocytes # (Manual) Basophils # (Manual) D-Dimer ABG pH POC ABG pCO2 POC ABG pO2 ABG Hemoglobin ABG Oxyhemoglobin ABG Sodium ABG Potassium ABG Chloride ABG Glucose Carboxyhemoglobin Sodium Potassium Chloride Carbon Dioxide BUN 34 H Creatinine Glucose 174 H POC Glucose 176 H 203 H Calcium Ferritin Lactate Dehydrogenase Total Creatine Kinase CK-MB (CK-2) C-Reactive Protein Total Protein Albumin Arterial Blood Glucose Urine WBC (Auto) Vancomycin Trough Coronavirus (PCR) 12/10/20 12/10/20 12/11/20 16:32 23:27 04:00 WBC RBC Hgb Hct MCH RDW Lymph % (Auto) [place] # (Auto) Seg Neutrophils % Seg Neuts % (Manual) Lymphocytes % (Manual) Seg Neutrophils # Seg Neutrophils # Man Lymphocytes # (Manual) Monocytes # (Manual) Basophils # (Manual) D-Dimer ABG pH 7.517 H POC ABG pCO2 POC ABG pO2 ABG Hemoglobin 10.0 L ABG Oxyhemoglobin ABG Sodium ABG Potassium ABG Chloride ABG Glucose 175 H Carboxyhemoglobin 0.3 L Sodium Potassium Chloride Carbon Dioxide BUN Creatinine Glucose POC Glucose 148 H 186 H Calcium Ferritin Lactate Dehydrogenase Total Creatine Kinase CK-MB (CK-2) C-Reactive Protein Total Protein Albumin Arterial Blood Glucose 175 H Urine WBC (Auto) Vancomycin Trough Coronavirus (PCR) 12/11/20 12/11/20 12/11/20 05:18 06:05 06:05 WBC RBC 3.19 L Hgb 9.0 L Hct 27.1 L MCH RDW 18.0 H Lymph % (Auto) [place] # (Auto) Seg Neutrophils % Seg Neuts % (Manual) Lymphocytes % (Manual) Seg Neutrophils # Seg Neutrophils # Man Lymphocytes # (Manual) Monocytes # (Manual) Basophils # (Manual) D-Dimer ABG pH POC ABG pCO2 POC ABG pO2 ABG Hemoglobin ABG Oxyhemoglobin ABG Sodium ABG Potassium ABG Chloride ABG Glucose Carboxyhemoglobin Sodium Potassium Chloride Carbon Dioxide BUN 33 H Creatinine Glucose 158 H POC Glucose 151 H Calcium Ferritin Lactate Dehydrogenase Total Creatine Kinase CK-MB (CK-2) C-Reactive Protein Total Protein Albumin Arterial Blood Glucose Urine WBC (Auto) Vancomycin Trough Coronavirus (PCR) 12/11/20 12/11/20 12/11/20 12:17 18:07 23:30 WBC RBC Hgb Hct MCH RDW Lymph % (Auto) [place] # (Auto) Seg Neutrophils % Seg Neuts % (Manual) Lymphocytes % (Manual) Seg Neutrophils # Seg Neutrophils # Man Lymphocytes # (Manual) Monocytes # (Manual) Basophils # (Manual) D-Dimer ABG pH POC ABG pCO2 POC ABG pO2 ABG Hemoglobin ABG Oxyhemoglobin ABG Sodium ABG Potassium ABG Chloride ABG Glucose Carboxyhemoglobin Sodium Potassium Chloride Carbon Dioxide BUN Creatinine Glucose POC Glucose 163 H 152 H 144 H Calcium Ferritin Lactate Dehydrogenase Total Creatine Kinase CK-MB (CK-2) C-Reactive Protein Total Protein Albumin Arterial Blood Glucose Urine WBC (Auto) Vancomycin Trough Coronavirus (PCR) 12/12/20 12/12/20 12/12/20 04:00 04:27 11:29 WBC RBC Hgb Hct MCH RDW Lymph % (Auto) [place] # (Auto) Seg Neutrophils % Seg Neuts % (Manual) Lymphocytes % (Manual) Seg Neutrophils # Seg Neutrophils # Man Lymphocytes # (Manual) Monocytes # (Manual) Basophils # (Manual) D-Dimer ABG pH 7.453 H POC ABG pCO2 POC ABG pO2 79.3 L ABG Hemoglobin 9.3 L ABG Oxyhemoglobin ABG Sodium ABG Potassium ABG Chloride ABG Glucose 159 H Carboxyhemoglobin Sodium Potassium Chloride Carbon Dioxide BUN Creatinine Glucose POC Glucose 146 H 135 H Calcium Ferritin Lactate Dehydrogenase Total Creatine Kinase CK-MB (CK-2) C-Reactive Protein Total Protein Albumin Arterial Blood Glucose 159 H Urine WBC (Auto) Vancomycin Trough Coronavirus (PCR) 12/12/20 12/12/20 12/12/20 17:31 18:47 18:47 WBC RBC 3.38 L Hgb 9.3 L Hct 29.3 L MCH RDW 18.8 H Lymph % (Auto) [place] # (Auto) Seg Neutrophils % Seg Neuts % (Manual) Lymphocytes % (Manual) Seg Neutrophils # Seg Neutrophils # Man Lymphocytes # (Manual) Monocytes # (Manual) Basophils # (Manual) D-Dimer ABG pH POC ABG pCO2 POC ABG pO2 ABG Hemoglobin ABG Oxyhemoglobin ABG Sodium ABG Potassium ABG Chloride ABG Glucose Carboxyhemoglobin Sodium Potassium Chloride Carbon Dioxide BUN Creatinine Glucose POC Glucose 145 H Calcium Ferritin Lactate Dehydrogenase Total Creatine Kinase CK-MB (CK-2) C-Reactive Protein Total Protein Albumin Arterial Blood Glucose Urine WBC (Auto) Vancomycin Trough 30.6 H Coronavirus (PCR) 12/12/20 12/13/20 12/13/20 23:38 04:52 04:52 WBC RBC 3.24 L Hgb 9.0 L Hct 27.6 L MCH RDW 17.9 H Lymph % (Auto) [place] # (Auto) Seg Neutrophils % Seg Neuts % (Manual) Lymphocytes % (Manual) Seg Neutrophils # Seg Neutrophils # Man Lymphocytes # (Manual) Monocytes # (Manual) Basophils # (Manual) D-Dimer ABG pH POC ABG pCO2 POC ABG pO2 ABG Hemoglobin ABG Oxyhemoglobin ABG Sodium ABG Potassium ABG Chloride ABG Glucose Carboxyhemoglobin Sodium Potassium Chloride Carbon Dioxide BUN 27 H Creatinine Glucose 157 H POC Glucose 123 H Calcium Ferritin Lactate Dehydrogenase Total Creatine Kinase CK-MB (CK-2) C-Reactive Protein Total Protein Albumin 2.9 L Arterial Blood Glucose Urine WBC (Auto) Vancomycin Trough Coronavirus (PCR) 12/13/20 12/13/20 12/13/20 05:22 11:38 17:36 WBC RBC Hgb Hct MCH RDW Lymph % (Auto) [place] # (Auto) Seg Neutrophils % Seg Neuts % (Manual) Lymphocytes % (Manual) Seg Neutrophils # Seg Neutrophils # Man Lymphocytes # (Manual) Monocytes # (Manual) Basophils # (Manual) D-Dimer ABG pH POC ABG pCO2 POC ABG pO2 ABG Hemoglobin ABG Oxyhemoglobin ABG Sodium ABG Potassium ABG Chloride ABG Glucose Carboxyhemoglobin Sodium Potassium Chloride Carbon Dioxide BUN Creatinine Glucose POC Glucose 176 H 140 H 139 H Calcium Ferritin Lactate Dehydrogenase Total Creatine Kinase CK-MB (CK-2) C-Reactive Protein Total Protein Albumin Arterial Blood Glucose Urine WBC (Auto) Vancomycin Trough Coronavirus (PCR) 12/14/20 12/14/20 12/14/20 00:14 06:11 08:30 WBC RBC Hgb Hct MCH RDW Lymph % (Auto) [place] # (Auto) Seg Neutrophils % Seg Neuts % (Manual) Lymphocytes % (Manual) Seg Neutrophils # Seg Neutrophils # Man Lymphocytes # (Manual) Monocytes # (Manual) Basophils # (Manual) D-Dimer ABG pH 7.494 H POC ABG pCO2 POC ABG pO2 168.3 H ABG Hemoglobin 10.6 L ABG Oxyhemoglobin 98.8 H ABG Sodium ABG Potassium ABG Chloride ABG Glucose 136 H Carboxyhemoglobin 0.3 L Sodium Potassium Chloride Carbon Dioxide BUN Creatinine Glucose POC Glucose 145 H 144 H Calcium Ferritin Lactate Dehydrogenase Total Creatine Kinase CK-MB (CK-2) C-Reactive Protein Total Protein Albumin Arterial Blood Glucose 136 H Urine WBC (Auto) Vancomycin Trough Coronavirus (PCR) 12/14/20 12/14/20 12/14/20 11:43 17:54 23:34 WBC RBC Hgb Hct MCH RDW Lymph % (Auto) [place] # (Auto) Seg Neutrophils % Seg Neuts % (Manual) Lymphocytes % (Manual) Seg Neutrophils # Seg Neutrophils # Man Lymphocytes # (Manual) Monocytes # (Manual) Basophils # (Manual) D-Dimer ABG pH POC ABG pCO2 POC ABG pO2 ABG Hemoglobin ABG Oxyhemoglobin ABG Sodium ABG Potassium ABG Chloride ABG Glucose Carboxyhemoglobin Sodium Potassium Chloride Carbon Dioxide BUN Creatinine Glucose POC Glucose 146 H 133 H 139 H Calcium Ferritin Lactate Dehydrogenase Total Creatine Kinase CK-MB (CK-2) C-Reactive Protein Total Protein Albumin Arterial Blood Glucose Urine WBC (Auto) Vancomycin Trough Coronavirus (PCR) 12/14/20 12/15/20 12/15/20 Unknown 05:55 11:34 WBC RBC Hgb Hct MCH RDW Lymph % (Auto) [place] # (Auto) Seg Neutrophils % Seg Neuts % (Manual) Lymphocytes % (Manual) Seg Neutrophils # Seg Neutrophils # Man Lymphocytes # (Manual) Monocytes # (Manual) Basophils # (Manual) D-Dimer ABG pH POC ABG pCO2 POC ABG pO2 ABG Hemoglobin ABG Oxyhemoglobin ABG Sodium ABG Potassium ABG Chloride ABG Glucose Carboxyhemoglobin Sodium Potassium Chloride Carbon Dioxide BUN 19 H Creatinine Glucose 146 H POC Glucose 121 H 152 H Calcium Ferritin Lactate Dehydrogenase Total Creatine Kinase CK-MB (CK-2) C-Reactive Protein Total Protein Albumin Arterial Blood Glucose Urine WBC (Auto) Vancomycin Trough Coronavirus (PCR) 12/16/20 12/16/20 12/16/20 00:01 04:44 05:26 WBC 13.5 H RBC Hgb Hct MCH 27 L RDW 19.0 H Lymph % (Auto) [place] # (Auto) Seg Neutrophils % Seg Neuts % (Manual) Lymphocytes % (Manual) Seg Neutrophils # Seg Neutrophils # Man Lymphocytes # (Manual) Monocytes # (Manual) Basophils # (Manual) D-Dimer ABG pH POC ABG pCO2 POC ABG pO2 ABG Hemoglobin ABG Oxyhemoglobin ABG Sodium ABG Potassium ABG Chloride ABG Glucose Carboxyhemoglobin Sodium Potassium Chloride Carbon Dioxide BUN Creatinine Glucose POC Glucose 129 H 117 H Calcium Ferritin Lactate Dehydrogenase Total Creatine Kinase CK-MB (CK-2) C-Reactive Protein Total Protein Albumin Arterial Blood Glucose Urine WBC (Auto) Vancomycin Trough Coronavirus (PCR) 12/16/20 12/16/20 12/16/20 05:26 07:43 12:01 WBC RBC Hgb Hct MCH RDW Lymph % (Auto) [place] # (Auto) Seg Neutrophils % Seg Neuts % (Manual) Lymphocytes % (Manual) Seg Neutrophils # Seg Neutrophils # Man Lymphocytes # (Manual) Monocytes # (Manual) Basophils # (Manual) D-Dimer ABG pH POC ABG pCO2 POC ABG pO2 ABG Hemoglobin ABG Oxyhemoglobin ABG Sodium ABG Potassium ABG Chloride ABG Glucose Carboxyhemoglobin Sodium Potassium 3.2 L D Chloride Carbon Dioxide BUN 24 H Creatinine Glucose 117 H POC Glucose 109 H 129 H Calcium 10.8 H Ferritin Lactate Dehydrogenase Total Creatine Kinase CK-MB (CK-2) C-Reactive Protein Total Protein 8.7 H D Albumin Arterial Blood Glucose Urine WBC (Auto) Vancomycin Trough Coronavirus (PCR) 12/16/20 12/16/20 12/17/20 18:21 23:40 05:09 WBC RBC Hgb Hct MCH RDW 19.3 H Lymph % (Auto) [place] # (Auto) Seg Neutrophils % Seg Neuts % (Manual) Lymphocytes % (Manual) Seg Neutrophils # Seg Neutrophils # Man Lymphocytes # (Manual) Monocytes # (Manual) Basophils # (Manual) D-Dimer ABG pH POC ABG pCO2 POC ABG pO2 ABG Hemoglobin ABG Oxyhemoglobin ABG Sodium ABG Potassium ABG Chloride ABG Glucose Carboxyhemoglobin Sodium Potassium Chloride Carbon Dioxide BUN Creatinine Glucose POC Glucose 135 H 120 H Calcium Ferritin Lactate Dehydrogenase Total Creatine Kinase CK-MB (CK-2) C-Reactive Protein Total Protein Albumin Arterial Blood Glucose Urine WBC (Auto) Vancomycin Trough Coronavirus (PCR) 12/17/20 12/17/20 12/17/20 05:09 05:23 07:44 WBC RBC Hgb Hct MCH RDW Lymph % (Auto) [place] # (Auto) Seg Neutrophils % Seg Neuts % (Manual) Lymphocytes % (Manual) Seg Neutrophils # Seg Neutrophils # Man Lymphocytes # (Manual) Monocytes # (Manual) Basophils # (Manual) D-Dimer ABG pH POC ABG pCO2 POC ABG pO2 ABG Hemoglobin ABG Oxyhemoglobin ABG Sodium ABG Potassium ABG Chloride ABG Glucose Carboxyhemoglobin Sodium Potassium 3.3 L Chloride Carbon Dioxide BUN 19 H Creatinine Glucose 115 H POC Glucose 109 H 131 H Calcium Ferritin Lactate Dehydrogenase Total Creatine Kinase CK-MB (CK-2) C-Reactive Protein Total Protein Albumin Arterial Blood Glucose Urine WBC (Auto) Vancomycin Trough Coronavirus (PCR) Allied health notes reviewed: nursing
--- NOTE | 2020-12-17 11:46 | Discharge Summary ---
Providers - Providers Date of Admission: 11/29/20 09:22 Date of discharge: 12/17/20 Attending physician: ROSA WOOD MD 11/29/20 09:25 Consult to Physician [CONS] Stat Comment: Consulting Provider: BRYAN ROCHA Physician Instructions: Reason For Exam: respiratory failure 11/29/20 15:23 Consult to Dietitian/Nutrition [CONS] Routine Physician Instructions: Assess nutrtn needs, initiate, modify, manage TF Reason For Exam: Reason for Consult: Write/Manage Tube Feeding Reason for Consult: Write/Manage Tube Feeding 12/04/20 07:36 Consult to Physician [CONS] Routine Comment: Consulting Provider: KELLY CARTAGENA Physician Instructions: Reason For Exam: fevers of unknown origin 12/11/20 09:54 Consult to Physician [CONS] Routine Comment: Consulting Provider: HERBERT RANGEL Physician Instructions: Reason For Exam: febrile 12/15/20 11:26 Consult to Physician [CONS] Urgent Comment: Consulting Provider: YANG MONGE Physician Instructions: Reason For Exam: Delirium 12/15/20 11:35 Consult to Physician [CONS] Routine Comment: spoke to dr. smith/nirmal Consulting Provider: WANDER SMITH Physician Instructions: Reason For Exam: Acute Encephalopathy; Delirium 12/16/20 07:38 Physical Therapy Evaluation and Treat [CONS] Routine Comment: Reason For Exam: Discharge planning Primary care physician: [employer] ATTENDANT Hospitalization Reason for admission: Respiratory failure secondary to angioedema Condition: Stable Hospital course: 39-year-old female history of hypertension, migraines, asthma, morbid obesity, idiopathic hereditary angioedema and urticaria, and alpha gal syndrome with multiple intubations who presented to the emergency department on 11/29 for allergic reaction. She was subsequently intubated due to acute hypoxic respiratoryfailure. While in ICU decision was made to transfer to [place] for ENT services. There were no available ICU beds, so patient remained at [facility]. Covid PCR on 12/03 was positive. According to family the patient was Covid positive 2+weeks prior to admission. After prolonged intubation, complicated by agitation and altered mental status, patient self extubated and was transferred out of the ICU. She remained stable on room air. Her mental status improved and she was discharged home with her . Disposition: 01 HOME / SELF CARE / HOMELESS Final Discharge Diagnosis (Prints w/discharge instructions): Angioedema. Acute hypoxic respiratory failure. COVID-19 infection Time spent for discharge: 20 minutes Core Measure Documentation - Palliative Care Palliative Care/ Comfort Measures: Not Applicable - Core Measures Any of the following diagnoses?: none - VTE Discharge Requirements Deep Vein Thrombosis/Pulmonary Embolism Present on Admission: No Has pt received <5 days of overlap therapy or INR<2.0: No Anticoagulant overlap therapy prescribed at discharge: No Contraindication No Overlap Therapy order at DC: Not Indicated - Acute [place] Discharge Requirements Aspirin at discharge: No Reason for no aspirin on DC: Patient refusal (Not indicated) LUIS MANEUL/ARB for LVSD if EF <40%: Not Applicable Beta mauro at discharge: No Reason for no beta mauro on DC: Patient refusal (Not indicated) Statin for LDL = or >100 mg/dl on DC: Not Applicable - Heart Failure Discharge Requirements LUIS MANUEL/ARB for LVSD if EF <40%: Not Applicable Reason for no LUIS MANUEL/ARB: Patient refusal (Not indicated) Beta mauro at discharge: No Reason for no beta mauro on DC: Patient refusal (Not indicated) - Stroke Discharge Requirements Statin for LDL = or >70 mg/dl on DC: Not Applicable Reason for no statin on DC: Not Indicated Anticoag for atrial fib/atrial flutter: Not Applicable Reason for no anticoag for AF/F on DC: Not Indicated Antithrombotic for ischemic stroke: No Reason for no antithrombotic on DC: Not Indicated Exam - Physical Exam Narrative exam: GENERAL: Obese woman. Lying in bed alert. CHEST/LUNGS: Port at right chest. Coarse breath sounds bilaterally. HEART: No murmur, rubs or gallops appreciated. ABDOMEN: +BS. NT/ND. NEURO: No focal motor deficit. Follows all commands. EXTREMITIES: No cyanosis, cubbing or edema. PSYCH: Appropriate affect. - Constitutional Vitals: Temp Pulse Resp BP Pulse Ox 99.7 F H 113 H 20 156/88 99 12/17/20 05:43 12/17/20 05:43 12/17/20 05:43 12/17/20 05:43 12/17/20 10:36 Plan Care Plan Goals: Patient to return to care of family. Monitor for any changes in mental status, currently improving. Assessment: Patient extubated, able to maintain great oxygen saturation on room air. Will be discharge to the care of the . Follow up with: PRIMARY CARE, [Primary Care Provider] - 3-5 Days Prescriptions: hydroCHLOROthiazide [HCTZ] 12.5 mg PO QDAY 30 Days #30 capsule
[2020-12-17 13:35] VITALS: BP 112/48
[2020-12-17] MEDS ORDERED: NEOMY 3.5 MG/BACIT 400 UNITS/POLY B 5000 UNITS/GM OINT PACKET TP ONE (16:11)
== END 2020-12-17 16:50 | disposition home or self-care (01) | DRG 207 ==
LOC: ED 06:34 → CC1 09:22 → 3A 12-15 14:48
PROVIDERS: ADMIT Internal Medicine; ATTEND Student in an Organized Health Care Education/Training Program
PROC: 5A1955Z Respiratory Ventilation, Greater than 96 Consecutive Hours (ICD-10-PCS; 2020-11-29)
PROC: 0BH17EZ Insertion of Endotracheal Airway into Trachea, Via Natural or Artificial Opening (ICD-10-PCS; 2020-11-29)
PROC: 4A033R1 Measurement of Arterial Saturation, Peripheral, Percutaneous Approach (ICD-10-PCS; principal; 2020-11-30)
DX: U07.1 COVID-19 (principal); A41.9 Sepsis, unspecified organism; J96.01 Acute respiratory failure with hypoxia; J12.82 Pneumonia due to coronavirus disease 2019; N17.0 Acute kidney failure with tubular necrosis; I46.9 Cardiac arrest, cause unspecified; G92 Toxic encephalopathy; I63.9 Cerebral infarction, unspecified; Z68.42 Body mass index [BMI] 45.0-49.9, adult; J45.901 Unspecified asthma with (acute) exacerbation; J39.8 Other specified diseases of upper respiratory tract; T78.3XXA Angioneurotic edema, initial encounter; D84.1 Defects in the complement system; G62.9 Polyneuropathy, unspecified; E66.01 Morbid (severe) obesity due to excess calories; J45.909 Unspecified asthma, uncomplicated; I16.0 Hypertensive urgency; Z88.8 Allergy status to other drugs, medicaments and biological substances; Z91.018 Allergy to other foods; G43.909 Migraine, unspecified, not intractable, without status migrainosus; Z90.710 Acquired absence of both cervix and uterus; I10 Essential (primary) hypertension; E11.65 Type 2 diabetes mellitus with hyperglycemia
CPT/HCPCS: 36415; 36600; 70450; 71045; 74018; 80048; 80053; 80076; 80202; 81001; 82550; 82553; 82565; 82728; 82805; 82962; 83615; 83735; 84100; 84484; 84703; 85007; 85025; 85027; 85379; 85610; 86140; 87040; 87070; 87076; 87086; 87186; 87205; 87641; 93005; 93970; 94002; 94003; 94640; 94760; G0378; J0171; J0330; J0360; J0456; J0692; J0696; J1100; J1200; J1630; J1652; J1815; J1940; J2060; J2250; J2405; J2543; J2704; J2920; J2930; J3010; J3370; J3475; J3490; J7030; J7040; J7050; U0003